=== PATIENT | male | born 1950 | race Caucasian/White ===

== ENCOUNTER → 2017-01-30 | Outpatient (CLI) | payer MEDICARE, BC ==
[2016-01-18 09:03] VITALS: BP 165/90
[~2017-01-30] MED LIST: AMIO200T2 PO; ASPI-482 PO; ASPI81TA9 PO; ATOR40TA PO; ATOR40TA59 PO; Aspirin PO; BUPR150T11 PO; CLOP75TA PO; CLOP75TA27 PO; DILT120C97 PO; DOCU100T5 PO; Diltiazem Hcl PO; EDOX60TA PO; ERGO500012 PO; FENO134C PO; FENO134C10 PO; FURO-68 PO; GABA-585 PO; HYDR-2672 PO; HYDR25TA9 PO; Hydrocodone Bit/Acetaminophen PO; LOSA25TA4 PO; METO25TA9 PO; NIAC500T PO; OMEG1CAP6 PO; PRAS10TA9 PO; RIVA10TA PO; RIVA20TA2 PO; SOTA120T PO; TIZA2TAB PO; TIZA4CAP PO
--- NOTE | 2017-01-30 14:19 | CARD ---
APPROVED REPORT EXAM: Two-dimensional and M-mode echocardiogram with Doppler and color Doppler. Other Information Quality : Technically Limited Rhythm : Atrial FibrillationTechnically limited study due to body habitus. INDICATION Cardiac Disease: CAD 2D DIMENSIONS RVDd3.0 (2.9-3.5cm)Left Atrium(2D)5.1 (1.6-4.0cm) IVSd1.4 (0.7-1.1cm)Aortic Root(2D)3.2 (2.0-3.7cm) LVDd5.6 (3.9-5.9cm)LVOT Diameter2.0 (1.8-2.4cm) PWd1.4 (0.7-1.1cm)LVDs4.1 (2.5-4.0cm) FS (%) 27.6 %SV81.2 ml LVEF(%)52.9 (>50%) Aortic Valve AoV Peak Tye.127.9cm/sAoV VTI25.2cm AO Peak GR.6.5mmHgLVOT Peak Tye.0.8cm/s LVOT VTI 19.10cmAO Mean GR.4mmHg LAMBERT (VMAX)0.15jh9JBS (VTI)2.40cm2 Mitral Valve MV DECEL ODCI236pqVF XNS57kw MVA (PHT)2.85cm2 Pulmonary Valve PV Peak Djajnuzq25.9cm/sPV Peak Grad.3mmHg RVOT VTI12.1cm Tricuspid Valve TR P. Oiiakjmg578ac/sRAP HYOOFNZY2gcGn TR Peak Gr.17luKbNCDO88llNw LEFT VENTRICLE The left ventricle is normal size. There is borderline to mild concentric left ventricular hypertroph y. Left ventricle systolic function is normal. The Ejection Fraction is 50-55%. There is normal LV se gmental wall motion. Unable to estimate diastolic function. There is no ventricular septal defect vis ualized. RIGHT VENTRICLE The right ventricle is normal size. The right ventricular systolic function is normal. ATRIA The left atrium size is normal. The right atrium size is normal. The interatrial septum is intact wit h no evidence for an atrial septal defect or patent foramen ovale as noted on 2-D or Doppler imaging. AORTIC VALVE The aortic valve is not well visualized. Doppler and Color Flow revealed no significant aortic regurg itation. There is no significant aortic valvular stenosis. MITRAL VALVE The mitral valve is normal in structure and function. There is no mitral valve stenosis. Doppler and Color Flow revealed mild mitral regurgitation. TRICUSPID VALVE The tricuspid valve is not well visualized. Doppler and Color Flow revealed mild tricuspid regurgitat ion. The PA pressure was estimated at 41 mmHg. There is no tricuspid valve stenosis. PULMONIC VALVE The pulmonic valve is not well visualized. Doppler and Color Flow revealed no pulmonic valvular regur gitation. There is no pulmonic valvular stenosis. GREAT VESSELS The aortic root is normal in size. Normal pulmonary venous flow (Doppler). The IVC is normal in size and collapses >50% with inspiration. PERICARDIAL EFFUSION There is no evidence of significant pericardial effusion. Critical Notification Critical Value: No <Conclusion> The left ventricle is normal size. Left ventricle systolic function is normal. The Ejection Fraction is 50-55%. There is borderline to mild concentric left ventricular hypertrophy. There is no significant aortic valvular stenosis. Doppler and Color Flow revealed no significant aortic regurgitation. Doppler and Color Flow revealed mild mitral regurgitation. Doppler and Color Flow revealed mild tricuspid regurgitation. The PA pressure was estimated at 41 mmHg.
== END | disposition home or self-care (01) ==
LOC: ECHO 08:39
PROVIDERS: ATTEND Internal Medicine Cardiovascular Disease
DX: I08.1 Rheumatic disorders of both mitral and tricuspid valves (principal)
CPT/HCPCS: 93306

== ENCOUNTER → 2017-03-28 | Outpatient (CLI) | payer MEDICARE, BC ==
[2016-01-18 09:03] VITALS: BP 165/90
[~2017-03-28] MED LIST changes: +ASPI-612 PO; -ASPI81TA9 PO; -CLOP75TA27 PO; +CLOP75TA57 PO; +DILT120C80 PO; -DILT120C97 PO; -ERGO500012 PO; +ERGO500027 PO; -HYDR-2672 PO; +HYDR-2766 PO
== END | disposition home or self-care (01) ==
LOC: PMGWOUND 07:52
PROVIDERS: ATTEND Emergency Medicine Undersea and Hyperbaric Medicine
DX: I87.313 Chronic venous hypertension (idiopathic) with ulcer of bilateral lower extremity (principal); L97.211 Non-pressure chronic ulcer of right calf limited to breakdown of skin; L97.221 Non-pressure chronic ulcer of left calf limited to breakdown of skin; I25.10 Atherosclerotic heart disease of native coronary artery without angina pectoris; E78.5 Hyperlipidemia, unspecified; I48.91 Unspecified atrial fibrillation; E66.01 Morbid (severe) obesity due to excess calories; I13.0 Hypertensive heart and chronic kidney disease with heart failure and stage 1 through stage 4 chronic kidney disease, or unspecified chronic kidney disease; N18.2 Chronic kidney disease, stage 2 (mild); I50.9 Heart failure, unspecified; Z95.0 Presence of cardiac pacemaker; Z68.42 Body mass index [BMI] 45.0-49.9, adult
CPT/HCPCS: 29581

== ENCOUNTER → 2017-03-31 | Outpatient (CLI) | payer MEDICARE, BC ==
[2016-01-18 09:03] VITALS: BP 165/90
== END | disposition home or self-care (01) ==
LOC: PMGWOUND 08:52
PROVIDERS: ATTEND Emergency Medicine Undersea and Hyperbaric Medicine
DX: I87.313 Chronic venous hypertension (idiopathic) with ulcer of bilateral lower extremity (principal); L97.211 Non-pressure chronic ulcer of right calf limited to breakdown of skin; L97.221 Non-pressure chronic ulcer of left calf limited to breakdown of skin; I25.10 Atherosclerotic heart disease of native coronary artery without angina pectoris; I13.0 Hypertensive heart and chronic kidney disease with heart failure and stage 1 through stage 4 chronic kidney disease, or unspecified chronic kidney disease; N18.2 Chronic kidney disease, stage 2 (mild); I50.9 Heart failure, unspecified; E78.5 Hyperlipidemia, unspecified; E66.01 Morbid (severe) obesity due to excess calories; Z68.42 Body mass index [BMI] 45.0-49.9, adult; I48.91 Unspecified atrial fibrillation; Z95.0 Presence of cardiac pacemaker
CPT/HCPCS: 29581

== ENCOUNTER → 2017-04-04 | Outpatient (CLI) | payer MEDICARE, BC ==
[2016-01-18 09:03] VITALS: BP 165/90
== END | disposition home or self-care (01) ==
LOC: PMGWOUND 11:07
PROVIDERS: ATTEND Emergency Medicine Undersea and Hyperbaric Medicine
DX: I87.313 Chronic venous hypertension (idiopathic) with ulcer of bilateral lower extremity (principal); L97.211 Non-pressure chronic ulcer of right calf limited to breakdown of skin; L97.221 Non-pressure chronic ulcer of left calf limited to breakdown of skin; I13.0 Hypertensive heart and chronic kidney disease with heart failure and stage 1 through stage 4 chronic kidney disease, or unspecified chronic kidney disease; N18.2 Chronic kidney disease, stage 2 (mild); I50.9 Heart failure, unspecified; I25.10 Atherosclerotic heart disease of native coronary artery without angina pectoris; E78.5 Hyperlipidemia, unspecified; I48.91 Unspecified atrial fibrillation; E66.01 Morbid (severe) obesity due to excess calories; Z68.42 Body mass index [BMI] 45.0-49.9, adult; Z95.0 Presence of cardiac pacemaker
CPT/HCPCS: 29581

== ENCOUNTER → 2017-04-11 | Outpatient (CLI) | payer MEDICARE, BC ==
[2016-01-18 09:03] VITALS: BP 165/90
== END | disposition home or self-care (01) ==
LOC: PMGWOUND 09:08
PROVIDERS: ATTEND Emergency Medicine Undersea and Hyperbaric Medicine
DX: I87.313 Chronic venous hypertension (idiopathic) with ulcer of bilateral lower extremity (principal); L97.211 Non-pressure chronic ulcer of right calf limited to breakdown of skin; L97.221 Non-pressure chronic ulcer of left calf limited to breakdown of skin; I13.0 Hypertensive heart and chronic kidney disease with heart failure and stage 1 through stage 4 chronic kidney disease, or unspecified chronic kidney disease; N18.2 Chronic kidney disease, stage 2 (mild); I50.9 Heart failure, unspecified; I25.10 Atherosclerotic heart disease of native coronary artery without angina pectoris; E78.5 Hyperlipidemia, unspecified; I48.91 Unspecified atrial fibrillation; E66.01 Morbid (severe) obesity due to excess calories; Z95.0 Presence of cardiac pacemaker; Z68.42 Body mass index [BMI] 45.0-49.9, adult
CPT/HCPCS: 99214

== ENCOUNTER → 2017-12-06 | Outpatient (CLI) | payer MEDICARE | END | disposition home or self-care (01) | LOC: US 07:48 | DX: R60.0 Localized edema (principal) | CPT/HCPCS: 93970 ==

== ENCOUNTER → 2018-04-18 | Day surgery (SDC) | payer MEDICARE ==
[~2018-04-18] MED LIST changes: -AMIO200T2 PO; +AMIO200T4 PO; +LIDOCAINE 1% Multi-Dose 20 ML VIAL. IJ ONE; +LIDOCAINE 1%/EPI 1:100,000 20 ML VIAL. INJ ONE; +METO-239 PO; -METO25TA9 PO; +NEOMY/BACITR/POLYMYXIN OINT PACKET. TP ONE
[2018-04-18 10:29] VITALS: BP 164/96
--- NOTE | 2018-04-23 10:07 | PATHOLOGY ---
[facility] Accession Number: [id number] . 01 Material submitted: . SKIN AND SUBCUTANEOUS MASS POSTERIOR NECK . 01 Clinical history: . Neck cyst. . 02 Diagnosis: Skin and subcutaneous tissue, posterior neck, excision: - Calcified pilomatricoma. - The lesion appears to be completely excised. (SKM:[facility]; 04/20/2018) QMS/04/20/2018 . 02 Electronically signed: . Ariel Kowalski MD, Pathologist NPI- [id number] . 01 Gross description: . Received in formalin labeled "Jassi Harris, skin and subcutaneous mass posterior neck" is a snow-white ellipse of skin measuring 2.8 x 1.1 x 0.3 cm, which has an encapsulated snow-yellow calcified mass in the deep soft tissue measuring 2.3 x 1.5 x 1.4 cm. Upon sectioning, the mass has a yellow-snow calcified cut surface. A inventory representative section of the specimen is submitted in cassette A1 following decalcification. (SK; 04/19/2018) SYC/SYC . 02 Pathologist provided ICD-10: D23.4 . 02 CPT . 176721 Performed at: 01 [facility] [address] [facility] [address], [place] [id number] MD Rashi Parra MD Phone: [phone] Performed at: 02 [facility] [address] [id number] MD Colin Edwards MD Phone: [phone]
--- NOTE | 2018-05-02 16:01 | PDOC ---
BRIEF OPERATIVE NOTE Date: Apr 18, 2018 Pre-Op Diagnosis cyst, left posterior neck Post-Op Diagnosis same Procedure Performed excision Surgeon Gregorio Anesthesia Type: Local Blood Loss minimal Specimens Obtained skin and subcutaneous tissue Findings cyst Complications none Operative Note Pt placed in LLD position. Left neck prepped, draped, 1% lidocaine with epi infiltrated. Skin and underlying process removed intact. Wound closed with interrupted 4-0 nylon sutures. Sterile dressing applied. Pt tolerated well. SUMIT KELLY MD May 02, 2018 16:01
== END | disposition home or self-care (01) ==
LOC: SURG 09:57
PROVIDERS: ATTEND Surgery
DX: D23.4 Other benign neoplasm of skin of scalp and neck (principal); I25.10 Atherosclerotic heart disease of native coronary artery without angina pectoris; E78.00 Pure hypercholesterolemia, unspecified; K21.9 Gastro-esophageal reflux disease without esophagitis; M19.90 Unspecified osteoarthritis, unspecified site; F32.9 Major depressive disorder, single episode, unspecified; F41.9 Anxiety disorder, unspecified; F17.210 Nicotine dependence, cigarettes, uncomplicated; I11.0 Hypertensive heart disease with heart failure; I50.9 Heart failure, unspecified; Z79.899 Other long term (current) drug therapy; Z79.82 Long term (current) use of aspirin; Z95.1 Presence of aortocoronary bypass graft; Z95.5 Presence of coronary angioplasty implant and graft; Z98.890 Other specified postprocedural states; Z90.49 Acquired absence of other specified parts of digestive tract
CPT/HCPCS: 11423; 88305; J3490

== ENCOUNTER → 2018-07-12 | Outpatient (CLI) | payer MEDICARE ==
[2018-04-18 10:29] VITALS: BP 164/96
[~2018-07-12] MED LIST changes: -LIDOCAINE 1% Multi-Dose 20 ML VIAL. IJ ONE; -LIDOCAINE 1%/EPI 1:100,000 20 ML VIAL. INJ ONE; -LOSA25TA4 PO; +LOSA25TA5 PO; -NEOMY/BACITR/POLYMYXIN OINT PACKET. TP ONE
--- NOTE | 2018-07-12 13:20 | CARD ---
MR#: [id number] Date of Study: 07/12/2018 Ordering Physician: JAIMIE GILMAN, Referring Physician: JAIMIE GILMAN, Tech: Pam Thakkar APPROVED REPORT EXAM: Two-dimensional and M-mode echocardiogram with Doppler and color Doppler. Other Information Quality : Average Rhythm : PacemakerTechnically limited study due to body habitus. INDICATION Diastolic heart failure Surgery/Intervention Pacemaker: RISK FACTORS Hypertension Hyperlipidemia Diabetes 2D DIMENSIONS RVDd2.6 (2.9-3.5cm)Left Atrium(2D)5.0 (1.6-4.0cm) IVSd1.0 (0.7-1.1cm)Aortic Root(2D)3.4 (2.0-3.7cm) LVDd6.7 (3.9-5.9cm)LVOT Diameter2.4 (1.8-2.4cm) PWd1.5 (0.7-1.1cm)LVDs3.6 (2.5-4.0cm) FS (%) 46.1 %SV177.1 ml LVEF(%)76.3 (>50%) Aortic Valve AoV Peak Tye.111.1cm/sAoV VTI22.7cm AO Peak GR.4.9mmHgLVOT Peak Tye.94.7cm/s AO Mean GR.3mmHgAVA (VMAX)3.90cm2 Mitral Valve MV E Qqztfjno97.6cm/sMV DECEL VSMT727rp MV A Meeiuqqa48.7cm/sE/A Ratio0.9 Pulmonary Valve PV Peak Xaikiupr047.5cm/s Tricuspid Valve TR P. Vanqfnjx984ui/sTR Peak Gr.20mmHg Pulmonary Vein S1 Jafvymsv96.5cm/sD2 Nvogiean71.0cm/s PVa bzlhvhue761sojo LEFT VENTRICLE The Left Ventricle is moderately dilated. There is mild concentric left ventricular hypertrophy. The left ventricular systolic function is normal and the ejection fraction is within normal range. The Ej ection Fraction is 55-60%. Grossly normal wall motion, difficult to visualized. Transmitral Doppler f low pattern is Grade II-pseudonormal filling dynamics. RIGHT VENTRICLE The right ventricle is mildly dilated. There is normal right ventricular wall thickness. The right ve ntricular systolic function is normal. ATRIA The left atrium is mildly dilated. The right atrium size is normal. The interatrial septum is intact with no evidence for an atrial septal defect or patent foramen ovale as noted on 2-D or Doppler imagi ng. AORTIC VALVE The aortic valve is not well visualized. Doppler and Color Flow revealed trace aortic regurgitation. There is no significant aortic valvular stenosis. MITRAL VALVE The mitral valve is normal in structure and function. There is no mitral valve stenosis. Doppler and Color-flow revealed trace mitral regurgitation. TRICUSPID VALVE The tricuspid valve is not well visualized. Doppler and Color Flow revealed no tricuspid valve regurg itation noted. There is no tricuspid valve stenosis. PULMONIC VALVE The pulmonic valve is not well visualized. Doppler and Color Flow revealed trace pulmonic valvular re gurgitation. There is no pulmonic valvular stenosis. GREAT VESSELS The aortic root is normal in size. The IVC was not visualized. PERICARDIAL EFFUSION There is no evidence of significant pericardial effusion. Critical Notification Critical Value: No <Conclusion> The left ventricular systolic function is normal and the ejection fraction is within normal range. Th e Ejection Fraction is 55-60%. Grossly normal wall motion, difficult to visualized. Signed by : Morgan Rothman, Electronically Approved : 07/12/2018 13:19:27
== END | disposition home or self-care (01) ==
LOC: ECHO 07:11
PROVIDERS: ATTEND Internal Medicine Cardiovascular Disease
DX: I13.0 Hypertensive heart and chronic kidney disease with heart failure and stage 1 through stage 4 chronic kidney disease, or unspecified chronic kidney disease (principal); E11.22 Type 2 diabetes mellitus with diabetic chronic kidney disease; I50.33 Acute on chronic diastolic (congestive) heart failure; N18.2 Chronic kidney disease, stage 2 (mild); E78.5 Hyperlipidemia, unspecified
CPT/HCPCS: 93306

== ENCOUNTER → 2018-11-28 | Outpatient (CLI) | payer MEDICARE ==
[2018-04-18 10:29] VITALS: BP 164/96
[~2018-11-28] MED LIST changes: +APIX5TAB PO; +CEPH-264 PO; +CIPR500T94 PO; -DILT120C80 PO; +DILT120C85 PO; +HYDR-2145 PO; +HYDR-2765 PO; -HYDR-2766 PO; +HYDR-2769 PO; -HYDR25TA9 PO; -LOSA25TA5 PO; +LOSA25TA54 PO; +METF500T16 PO
== END | disposition home or self-care (01) ==
LOC: PMGWOUND 08:32
PROVIDERS: ATTEND Preventive Medicine Undersea and Hyperbaric Medicine
DX: E11.622 Type 2 diabetes mellitus with other skin ulcer (principal); I87.313 Chronic venous hypertension (idiopathic) with ulcer of bilateral lower extremity; L97.211 Non-pressure chronic ulcer of right calf limited to breakdown of skin; L97.221 Non-pressure chronic ulcer of left calf limited to breakdown of skin; S80.822A Blister (nonthermal), left lower leg, initial encounter; E11.40 Type 2 diabetes mellitus with diabetic neuropathy, unspecified; I13.0 Hypertensive heart and chronic kidney disease with heart failure and stage 1 through stage 4 chronic kidney disease, or unspecified chronic kidney disease; E11.22 Type 2 diabetes mellitus with diabetic chronic kidney disease; N18.2 Chronic kidney disease, stage 2 (mild); I50.33 Acute on chronic diastolic (congestive) heart failure; I48.91 Unspecified atrial fibrillation; E78.5 Hyperlipidemia, unspecified; F12.10 Cannabis abuse, uncomplicated; N40.1 Benign prostatic hyperplasia with lower urinary tract symptoms; I25.10 Atherosclerotic heart disease of native coronary artery without angina pectoris; E66.01 Morbid (severe) obesity due to excess calories; Z68.42 Body mass index [BMI] 45.0-49.9, adult; Z90.49 Acquired absence of other specified parts of digestive tract; X58.XXXA Exposure to other specified factors, initial encounter; Y93.89 Activity, other specified; Y92.89 Other specified places as the place of occurrence of the external cause; Y99.8 Other external cause status
CPT/HCPCS: 29581

== ENCOUNTER → 2018-11-30 | Outpatient (CLI) | payer MEDICARE ==
[2018-04-18 10:29] VITALS: BP 164/96
== END | disposition home or self-care (01) ==
LOC: PMGWOUND 08:06
PROVIDERS: ATTEND Preventive Medicine Undersea and Hyperbaric Medicine
DX: E11.622 Type 2 diabetes mellitus with other skin ulcer (principal); I87.313 Chronic venous hypertension (idiopathic) with ulcer of bilateral lower extremity; L97.211 Non-pressure chronic ulcer of right calf limited to breakdown of skin; L97.221 Non-pressure chronic ulcer of left calf limited to breakdown of skin; S80.822D Blister (nonthermal), left lower leg, subsequent encounter; E11.40 Type 2 diabetes mellitus with diabetic neuropathy, unspecified; I13.0 Hypertensive heart and chronic kidney disease with heart failure and stage 1 through stage 4 chronic kidney disease, or unspecified chronic kidney disease; E11.22 Type 2 diabetes mellitus with diabetic chronic kidney disease; N18.2 Chronic kidney disease, stage 2 (mild); I50.33 Acute on chronic diastolic (congestive) heart failure; E78.5 Hyperlipidemia, unspecified; I48.91 Unspecified atrial fibrillation; F12.10 Cannabis abuse, uncomplicated; N40.1 Benign prostatic hyperplasia with lower urinary tract symptoms; I25.10 Atherosclerotic heart disease of native coronary artery without angina pectoris; E66.01 Morbid (severe) obesity due to excess calories; Z68.42 Body mass index [BMI] 45.0-49.9, adult; Z90.49 Acquired absence of other specified parts of digestive tract; X58.XXXD Exposure to other specified factors, subsequent encounter
CPT/HCPCS: 29581

== ENCOUNTER → 2018-12-07 | Outpatient (CLI) | payer MEDICARE ==
[2018-04-18 10:29] VITALS: BP 164/96
== END | disposition home or self-care (01) ==
LOC: PMGWOUND 08:10
PROVIDERS: ATTEND Preventive Medicine Undersea and Hyperbaric Medicine
DX: E11.622 Type 2 diabetes mellitus with other skin ulcer (principal); L97.211 Non-pressure chronic ulcer of right calf limited to breakdown of skin; L97.221 Non-pressure chronic ulcer of left calf limited to breakdown of skin; S80.822D Blister (nonthermal), left lower leg, subsequent encounter; E11.40 Type 2 diabetes mellitus with diabetic neuropathy, unspecified; I13.0 Hypertensive heart and chronic kidney disease with heart failure and stage 1 through stage 4 chronic kidney disease, or unspecified chronic kidney disease; E11.22 Type 2 diabetes mellitus with diabetic chronic kidney disease; N18.2 Chronic kidney disease, stage 2 (mild); I50.33 Acute on chronic diastolic (congestive) heart failure; E78.5 Hyperlipidemia, unspecified; I87.2 Venous insufficiency (chronic) (peripheral); I48.91 Unspecified atrial fibrillation; N40.1 Benign prostatic hyperplasia with lower urinary tract symptoms; I25.10 Atherosclerotic heart disease of native coronary artery without angina pectoris; E66.01 Morbid (severe) obesity due to excess calories; Z68.42 Body mass index [BMI] 45.0-49.9, adult; Z95.0 Presence of cardiac pacemaker; Z90.49 Acquired absence of other specified parts of digestive tract; X58.XXXD Exposure to other specified factors, subsequent encounter
CPT/HCPCS: 97597; 97598

== ENCOUNTER → 2018-12-11 | Outpatient (CLI) | payer MEDICARE ==
[2018-04-18 10:29] VITALS: BP 164/96
== END | disposition home or self-care (01) ==
LOC: PMGWOUND 10:03
PROVIDERS: ATTEND Emergency Medicine Undersea and Hyperbaric Medicine
DX: E11.622 Type 2 diabetes mellitus with other skin ulcer (principal); I87.313 Chronic venous hypertension (idiopathic) with ulcer of bilateral lower extremity; L97.211 Non-pressure chronic ulcer of right calf limited to breakdown of skin; L97.221 Non-pressure chronic ulcer of left calf limited to breakdown of skin; E11.40 Type 2 diabetes mellitus with diabetic neuropathy, unspecified; I13.0 Hypertensive heart and chronic kidney disease with heart failure and stage 1 through stage 4 chronic kidney disease, or unspecified chronic kidney disease; E11.22 Type 2 diabetes mellitus with diabetic chronic kidney disease; N18.2 Chronic kidney disease, stage 2 (mild); I50.9 Heart failure, unspecified; I48.91 Unspecified atrial fibrillation; E78.5 Hyperlipidemia, unspecified; N40.1 Benign prostatic hyperplasia with lower urinary tract symptoms; I25.10 Atherosclerotic heart disease of native coronary artery without angina pectoris; E66.01 Morbid (severe) obesity due to excess calories; Z68.42 Body mass index [BMI] 45.0-49.9, adult; Z95.0 Presence of cardiac pacemaker; Z90.49 Acquired absence of other specified parts of digestive tract
CPT/HCPCS: 29581

== ENCOUNTER → 2018-12-14 | Outpatient (CLI) | payer MEDICARE ==
[2018-04-18 10:29] VITALS: BP 164/96
== END | disposition home or self-care (01) ==
LOC: PMGWOUND 08:25
PROVIDERS: ATTEND Preventive Medicine Undersea and Hyperbaric Medicine
DX: E11.622 Type 2 diabetes mellitus with other skin ulcer (principal); I87.313 Chronic venous hypertension (idiopathic) with ulcer of bilateral lower extremity; L97.211 Non-pressure chronic ulcer of right calf limited to breakdown of skin; L97.221 Non-pressure chronic ulcer of left calf limited to breakdown of skin; E11.40 Type 2 diabetes mellitus with diabetic neuropathy, unspecified; I13.0 Hypertensive heart and chronic kidney disease with heart failure and stage 1 through stage 4 chronic kidney disease, or unspecified chronic kidney disease; E11.22 Type 2 diabetes mellitus with diabetic chronic kidney disease; N18.2 Chronic kidney disease, stage 2 (mild); I50.33 Acute on chronic diastolic (congestive) heart failure; I87.2 Venous insufficiency (chronic) (peripheral); I48.91 Unspecified atrial fibrillation; E78.5 Hyperlipidemia, unspecified; N40.1 Benign prostatic hyperplasia with lower urinary tract symptoms; I25.10 Atherosclerotic heart disease of native coronary artery without angina pectoris; E66.01 Morbid (severe) obesity due to excess calories; Z68.42 Body mass index [BMI] 45.0-49.9, adult; Z95.0 Presence of cardiac pacemaker; Z90.49 Acquired absence of other specified parts of digestive tract
CPT/HCPCS: 29581; 97597; 97598

== ENCOUNTER → 2018-12-18 | Outpatient (CLI) | payer MEDICARE ==
[2018-04-18 10:29] VITALS: BP 164/96
--- NOTE | 2018-12-18 09:35 | RAD ---
Bilateral lower extremity venous insufficiency ultrasound exam, 12/18/2018: HISTORY: Nonhealing wounds Duplex evaluation of the greater and lesser saphenous veins was performed including grayscale, color-flow and spectral Doppler analysis. The right greater saphenous vein measures 7.5 mm near the saphenofemoral junction level. It is widely patent and does not demonstrate significant reflux. The left greater saphenous vein measures 7.1 mm near the saphenofemoral junction level. It is widely patent and does not demonstrate significant reflux. The lesser saphenous veins in both lower legs are patent without significant reflux. Subcutaneous edema is noted in both lower legs in the region of the patient's wounds. IMPRESSION: No significant reflux was identified in the greater saphenous or lesser saphenous veins in either lower extremity. Electronically signed by: Tawanda Wang MD (12/18/2018 9:32 AM) [facility]
--- NOTE | 2018-12-18 09:44 | RAD ---
Bilateral lower extremity arterial ultrasound, 12/18/2018: HISTORY: Nonhealing wounds Duplex evaluation of the major arteries in both lower extremities was performed including grayscale, color-flow and spectral Doppler analysis. On the right, the common femoral, superficial femoral and popliteal Doppler waveforms are triphasic. No significant focal velocity acceleration is seen through these regions to suggest high-grade stenosis. Patent posterior tibial and anterior tibial arteries are evident in the right lower leg demonstrating triphasic Doppler waveforms. The right peroneal artery was not visualized. This may be on a technical basis or due to occlusion. The right dorsalis pedis artery is patent with a triphasic Doppler waveform. On the left, the common femoral, superficial femoral and popliteal Doppler waveforms are monophasic. This suggests iliac inflow disease. No significant focal velocity acceleration is seen in those vessels to suggest high-grade femoral-popliteal stenosis. Patent posterior tibial and anterior tibial arteries are present in the left lower leg demonstrating monophasic Doppler waveforms. The left peroneal artery could not be visualized. The left dorsalis pedis artery is patent demonstrating a similar monophasic Doppler waveform. IMPRESSION: 1. 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 This is a new finding when compared to the previous study of 01/11/2016. 2. No evidence of significant femoral-popliteal stenosis. 3. Nonvisualization of the peroneal arteries in both lower legs. Electronically signed by: Tawanda Wang MD (12/18/2018 9:42 AM) [facility]
== END | disposition home or self-care (01) ==
LOC: US 07:41
PROVIDERS: ATTEND Preventive Medicine Undersea and Hyperbaric Medicine
DX: L97.211 Non-pressure chronic ulcer of right calf limited to breakdown of skin (principal); L97.221 Non-pressure chronic ulcer of left calf limited to breakdown of skin
CPT/HCPCS: 93925; 93970

== ENCOUNTER 2018-12-29 07:56 | Inpatient (IN) | payer MEDICARE ==
[~2018-12-29] VITALS: Ht 165.1 cm; Wt 145.1 kg
[~2018-12-29 07:56] MED LIST changes: -APIX5TAB PO; -CEPH-264 PO; -CIPR500T94 PO; -HYDR-2765 PO; -METF500T16 PO
[2018-12-29] MEDS ORDERED: methylPREDNISolone SOD SUCC PF 125 MG/2 ML VIAL. IV ONE (08:15)
[2018-12-29] MEDS ORDERED: FUROSEMIDE 40 MG/4 ML VIAL. IVP ONE (08:15)
[2018-12-29] MEDS ORDERED: IPRATRPIUM/ALBUTEROL 0.5/2.5MG 3 ML NEBU. NEB ONE (08:15)
[2018-12-29 08:30] LABS: BASO # 0.1 x10^3/uL (0.0-0.2); BASO % 1 % (0-3); EOS # 0.2 x10^3/uL (0.0-0.7); EOS % 2 % (0-3); HEMOGLOBIN 11.1 g/dL (13.0-17.5); LYMPH # 1.3 x10^3/uL (1.0-4.8); LYMPH % 11 % (24-48); MEAN CORPUSCULAR HEMOGLOBIN 27 pg (25-35); MEAN CORPUSCULAR HGB CONC 32 g/dL (31-37); MEAN CORPUSCULAR VOLUME 84 fL (79-100); MONO # 1.2 x10^3/uL (0.0-1.1); MONO % 10 % (0-9); NEUT # 8.8 x10^3uL (1.8-7.7); NEUT % 76 % (31-73); PLATELET COUNT 428 x10^3/uL (140-400); RED BLOOD COUNT 4.19 x10^6/uL (4.30-5.70); RED CELL DISTRIBUTION WIDTH 15.6 % (11.5-14.5); WHITE BLOOD COUNT 11.6 x10^3/uL (4.0-11.0)
--- NOTE | 2018-12-29 08:31 | RAD ---
AP chest. HISTORY: Short of air, chest tightness AP view was taken of the chest. Heart is upper normal in size. There is a pacemaker, the pacing leads are not optimally visualized. Right lung appears clear. There is a probable eventration of the left diaphragm. There is atelectasis along the left heart border. No other infiltrates are noted. IMPRESSION: 1. Scarring or atelectasis along the left heart border without other definite infiltrates. Electronically signed by: Prosper Scales MD (12/29/2018 8:28 AM) [facility]
[2018-12-29 08:32] LABS: BASE EXCESS ABG -1 mmol/L (-3-3); HCO3 ABG 23 mmol/L (21-28); PCO2 ABG 36 mmHg (35-46); PO2 ABG 114 mmHg (65-108); SAT O2 ABG 98 % (92-99)
[2018-12-29 08:39] LABS: CALCIUM 8.7 mg/dL (8.5-10.1); CREATININE 0.9 mg/dL (0.7-1.3); GFR 84.4; POTASSIUM 4.2 mmol/L (3.5-5.1)
[2018-12-29 08:45] LABS: ALBUMIN 3.4 g/dL (3.4-5.0); ALBUMIN/GLOBULIN RATIO 0.8 (1.0-1.7); TOTAL BILIRUBIN 0.2 mg/dL (0.2-1.0); TOTAL PROTEIN 7.6 g/dL (6.4-8.2)
[2018-12-29 08:48] LABS: BILIRUBIN,URINE NEGATIVE (NEG); CLARITY,URINE CLEAR; COLOR,URINE YELLOW; NITRITE,URINE NEGATIVE (NEG); PROTEIN,URINE NEGATIVE (NEG-TRACE)
[2018-12-29 09:00] LABS: BACTERIA,URINE MANY /HPF (0-FEW); SQUAMOUS EPITHELIAL CELL,UR OCC /LPF
[2018-12-29] MEDS ORDERED: cefTRIAXone IV Push 1 GM VIAL. IVP ONE (09:15)
[2018-12-29] MEDS ORDERED: IOHEXOL 350 MG/ML 100 ML VIAL. IV ONE (09:30)
--- NOTE | 2018-12-29 09:34 | PHYS DOC ---
Past Medical History Past Medical History: CAD, Diabetes-Type II, Hypertension Past Surgical History: Cholecystectomy, Other Additional Past Surgical Histo: Cardiac stent, ROTATAR CUFF, HERNIA Alcohol Use: None Drug Use: None Adult General Chief Complaint Chief Complaint: SHORTNESS OF BREATH HPI HPI Patient is a 68 year old male who presents with complaining of shortness of breath. Patient states he has had chronic exertional shortness of breath that getting worse since this morning as a constant shortness of breath that getting worse with activity and swelling position. Patient complaining of substernal chest tightness and rated his pain 2/10. Patient denies fever and chills, cough , increase of chronic leg edema, vomiting and diarrhea, urinary symptom. Patient has had chronic lower extremity edema and taking diuretic. Patient also had left lower extremity wound and was seen at wound care clinic. Review of Systems Review of Systems Constitutional: Denies fever or chills [] Eyes: Denies change in visual acuity, redness, or eye pain [] HENT: Denies nasal congestion or sore throat [] Respiratory: Denies cough, reports shortness of breath [] Cardiovascular: No additional information not addressed in HPI [] GI: Denies abdominal pain, nausea, vomiting, bloody stools or diarrhea [] : Denies dysuria or hematuria [] Musculoskeletal: Denies back pain or joint pain [] Integument: Denies rash, reports ulcer Neurologic: Denies headache, focal weakness or sensory changes [] Endocrine: Denies polyuria or polydipsia [] All other systems were reviewed and found to be within normal limits, except as documented in this note. Current Medications Current Medications Current Medications Medications (Trade) Dose Ordered Sig/Lito Start Time Stop Time Status Last Admin Dose Admin Albuterol/ Ipratropium (Duoneb) 3 ml 1X ONCE 12/29/18 08:15 12/29/18 08:17 DC 12/29/18 08:40 3 ML Ceftriaxone Sodium (Rocephin) 1 gm 1X ONCE 12/29/18 09:15 12/29/18 09:18 DC 12/29/18 09:33 1 GM Furosemide (Lasix) 40 mg 1X ONCE 12/29/18 08:15 12/29/18 08:17 DC 12/29/18 08:26 40 MG Methylprednisolone Sodium Succinate (SOLU-Medrol 125MG VIAL) 125 mg 1X ONCE 12/29/18 08:15 12/29/18 08:17 DC 12/29/18 08:27 125 MG Allergies Allergies Allergies Coded Allergies Type Severity Reaction Last Updated Verified No Known Drug Allergies 04/18/18 No Physical Exam Physical Exam Constitutional: Well developed, well nourished, moderate distress, non-toxic appearance, morbidly obese. [] HENT: Normocephalic, atraumatic, oropharynx moist, no oral exudates, nose normal. [] Eyes: PERRLA, EOMI, conjunctiva normal, no discharge. [] Neck: Normal range of motion, no tenderness, supple, no stridor. [] Cardiovascular:Heart rate regular rhythm, no murmur [] Lungs & Thorax: Mild respiratory distress with intercostal retractions and hyperventilation, O2 sat of 89% at arrival to ER with increasing to 94% on 2 L of oxygen decrease of air movement in by basilar lung, no wheezing Abdomen: Bowel sounds normal, soft, no tenderness, no masses, no pulsatile masses. [] Skin: Warm, dry, no erythema, no rash. [] Back: No tenderness, no CVA tenderness. [] Extremities: No tenderness, no cyanosis, no clubbing, ROM intact, 3+ bilateral lower extremity edema with left anterior leg wound in the dressing from wound clinic Neurologic: Alert and oriented X 3, normal motor function, normal sensory function, no focal deficits noted. [] Psychologic: Affect normal, judgement normal, mood normal. [] Current Patient Data Vital Signs Vital Signs Date Time Temp Pulse Resp B/P (MAP) Pulse Ox O2 Delivery O2 Flow Rate FiO2 12/29/18 09:15 85 28 163/96 (118) 95 Nasal Cannula 2.0 12/29/18 08:08 98.4 98.4 Lab Values Laboratory Tests Test 12/29/18 08:05 12/29/18 08:20 12/29/18 08:30 White Blood Count 11.6 x10^3/uL (4.0-11.0) H Red Blood Count 4.19 x10^6/uL (4.30-5.70) L Hemoglobin 11.1 g/dL (13.0-17.5) L Hematocrit 35.0 % (39.0-53.0) L Mean Corpuscular Volume 84 fL (79-100) Mean Corpuscular Hemoglobin 27 pg (25-35) Mean Corpuscular Hemoglobin Concent 32 g/dL (31-37) Red Cell Distribution Width 15.6 % (11.5-14.5) H Platelet Count 428 x10^3/uL (140-400) H Neutrophils (%) (Auto) 76 % (31-73) H Lymphocytes (%) (Auto) 11 % (24-48) L Monocytes (%) (Auto) 10 % (0-9) H Eosinophils (%) (Auto) 2 % (0-3) Basophils (%) (Auto) 1 % (0-3) Neutrophils # (Auto) 8.8 x10^3uL (1.8-7.7) H Lymphocytes # (Auto) 1.3 x10^3/uL (1.0-4.8) Monocytes # (Auto) 1.2 x10^3/uL (0.0-1.1) H Eosinophils # (Auto) 0.2 x10^3/uL (0.0-0.7) Basophils # (Auto) 0.1 x10^3/uL (0.0-0.2) D-Dimer (Dayami) 0.74 ug/mlFEU (0.00-0.50) H Sodium Level 143 mmol/L (136-145) Potassium Level 4.2 mmol/L (3.5-5.1) Chloride Level 104 mmol/L (98-107) Carbon Dioxide Level 26 mmol/L (21-32) Anion Gap 13 (6-14) Blood Urea Nitrogen 22 mg/dL (8-26) Creatinine 0.9 mg/dL (0.7-1.3) Estimated GFR (Cockcroft-Gault) 84.4 BUN/Creatinine Ratio 24 (6-20) H Glucose Level 120 mg/dL (70-99) H Lactic Acid Level 1.6 mmol/L (0.4-2.0) Calcium Level 8.7 mg/dL (8.5-10.1) Total Bilirubin 0.2 mg/dL (0.2-1.0) Aspartate Amino Transferase (AST) 13 U/L (15-37) L Alanine Aminotransferase (ALT) 25 U/L (16-63) Alkaline Phosphatase 63 U/L (46-116) Creatine Kinase 53 U/L (39-308) Troponin I Quantitative < 0.017 ng/mL (0.000-0.055) TE-Gib-Z-Type Natriuretic Peptide 101 pg/mL (0-124) Total Protein 7.6 g/dL (6.4-8.2) Albumin 3.4 g/dL (3.4-5.0) Albumin/Globulin Ratio 0.8 (1.0-1.7) L O2 Saturation 98 % (92-99) Arterial Blood pH 7.42 (7.35-7.45) Arterial Blood pCO2 at Patient Temp 36 mmHg (35-46) Arterial Blood pO2 at Patient Temp 114 mmHg (65-108) H Arterial Blood HCO3 23 mmol/L (21-28) Arterial Blood Base Excess -1 mmol/L (-3-3) FiO2 2.5 lpm nc Urine Collection Type Unknown Urine Color Yellow Urine Clarity Clear Urine pH 7.0 Urine Specific [place] 1.015 Urine Protein Negative mg/dL (NEG-TRACE) Urine Glucose (UA) Negative mg/dL (NEG) Urine Ketones (Stick) Negative mg/dL (NEG) Urine Blood Negative (NEG) Urine Nitrite Negative (NEG) Urine Bilirubin Negative (NEG) Urine Urobilinogen Dipstick 1.0 mg/dL (0.2 mg/dL) Urine Leukocyte Esterase Trace (NEG) Urine RBC 1-2 /HPF (0-2) Urine WBC 11-20 /HPF (0-4) Urine Squamous Epithelial Cells Occ /LPF Urine Bacteria Many /HPF (0-FEW) Urine Mucus Slight /LPF Laboratory Tests 12/29/18 08:05 Laboratory Tests 12/29/18 08:05 EKG EKG EKG interpreted by me. EKG at 0810 showed normal sinus rhythm at rate of 89 with multiple artifact, no acute ST and T-wave abnormalities, normal VT and QT intervals. Radiology/Procedures Radiology/Procedures [facility] [address] [place] [address] IMAGING REPORT Signed PATIENT: MALINDA LOPEZ ACCOUNT: [id number] : 1950 LOCATION: ER AGE: 68 SEX: M EXAM STATUS: PRE ER ORD. PHYSICIAN: VERONICA WARREN MD REASON: shortness of breath PROCEDURE: PORTABLE CHEST 1V AP chest. HISTORY: Short of air, chest tightness AP view was taken of the chest. Heart is upper normal in size. There is a pacemaker, the pacing leads are not optimally visualized. Right lung appears clear. There is a probable eventration of the left diaphragm. There is atelectasis along the left heart border. No other infiltrates are noted. IMPRESSION: 1. Scarring or atelectasis along the left heart border without other definite infiltrates. Electronically signed by: Prosper Scales MD (12/29/2018 8:28 AM) [facility] DICTATED and SIGNED BY: PROSPER SCALES MD DATE: 12/29/18 08 [facility] [address] [facility] [place], [place] [id number] IMAGING REPORT Signed PATIENT: MALINDA LOPEZ ACCOUNT: [id number] : 1950 LOCATION: [address] [place] [address] AGE: 68 SEX: M EXAM STATUS: ADM IN ORD. PHYSICIAN: VERONICA WARREN MD REASON: shortness of breath, elevated d-dimer PROCEDURE: CT ANGIOGRAPHY CHEST CT arteriogram of the chest. HISTORY: Short of breath, elevated d-dimer CT arteriogram of the chest was done using 100 mL Omnipaque 350 contrast. Sagittal and coronal MIP images were reconstructed. There is fatty change in the liver without a focal liver lesion. Spleen and adrenal glands are unremarkable. Upper poles the kidneys are normal. There is no pleural effusion. There is mild linear scarring or atelectasis in the lingula. There is a prominent epicardial fat pad along the heart border especially on the left. A pulmonary nodule is not identified. A pulmonary embolus is not identified. There is respiratory motion artifact which mildly limits the study for small peripheral emboli. IMPRESSION: 1. Mild scarring or atelectasis in the lingula. 2. No other infiltrates noted. 3. Negative for pulmonary embolus. 4. Mild limitations with respiratory motion artifact in the lung bases. PQRS Compliance Statement: One or more of the following individualized dose reduction techniques were utilized for this examination: 1. Automated exposure control 2. Adjustment of the mA and/or kV according to patient size 3. Use of iterative reconstruction technique Electronically signed by: Prosper Scales MD (12/29/2018 10:25 AM) [facility] DICTATED and SIGNED BY: PROSPER SCALES MD DATE: 12/29/18 1025 Course & Med Decision Making Course & Med Decision Making Pertinent Labs and Imaging studies reviewed. (See chart for details) Evaluation of patient in ER showed 68-year-old male patient presented to ER with shortness of breath. Patient had O2 sat of 100% at triage but in the room was 89% at room air that increased with 2 L of oxygen to 93-95%. Patient treated with DuoNeb, Solu-Medrol and Lasix and is 3 this is improved. Labs and chest x-ray was unremarkable except for marked anemia and UTI. D-dimer was mildly elevation and CT and shortness chest is pending. Patient requiring admission for further evaluation and treatment. Discussed with Dr. Aguilar who is in agreement with admission. Discussed findings and plan with patient and family, who acknowledge understanding and agreement. Dragon Disclaimer Dragon Disclaimer This electronic medical record was generated, in whole or in part, using a voice recognition dictation system. Departure Departure Impression: Primary Impression: Acute respiratory distress Additional Impressions: Hypoxia Urinary tract infection Diabetic ulcer of lower leg Pedal edema Anemia Morbid obesity Chest pain Disposition: ADMITTED INPATIENT (at 0923) Admitting Physician: Joy Aguilar (accepted admission for Dr. Daniel Barraza at 0922) Condition: IMPROVED Referrals: DANIEL BARRAZA MD (PCP) Critical Care Time Critical care time was 60 minutes exclusive of procedures. Problem Qualifiers Additional Impressions: Urinary tract infection Urinary tract infection type: site unspecified Hematuria presence: without hematuria Qualified Codes: N39.0 - Urinary tract infection, site not specified Anemia Anemia type: unspecified type Qualified Codes: D64.9 - Anemia, unspecified Chest pain Chest pain type: precordial pain Qualified Codes: R07.2 - Precordial pain VERONICA WARREN MD Dec 29, 2018 09:34
[2018-12-29] MEDS ORDERED: CONTRAST GIVEN. MC PRN (09:45)
[2018-12-29 10:10] VITALS: BP 159/99
--- NOTE | 2018-12-29 10:13 | PDOC2 ---
CARDIOLOGY CONSULT NOTE CHEIF COMPLAINT: SOA HPI: 68 y.o male with noted pmhx as below presenting with worsening exertional dyspnea. At baseline he is limited due to his morbid obesity and lung disease. He states that early today he began to feels some chest pressure and worsening dyspnea which prompted visit to the ER. In the ER, CXR was wnl. CTA chest pending due to elevated d-dimer. He has known LE edema and has been seen by the wound care clinic regularly. No syncope, palpitations. No orthopnea but does have PND and symptoms of TEETEE. Reports compliance with meds. PMHX: 1. CAD s/p PCI in 2013 to OM. Cath in 2014 with patent OM stent and small vessel disease. 2. HTN 3. Dyslipidemia 4. PAF s/p CVN 5. Morbid obesity 6. s/p Dual chamber pacemaker for tachy-rhina syndrome 7. LE wounds with mild venous reflux and possible aorto-iliac disease SOCHX: No alcohol, tob or illicit drug use FAMHX: Non-contributory CURRENT MEDS: CV meds at home: Amiodarone 200mg daily ASA 81mg daily Diltiazem 240mg daily Lasix 40mg daily Eliquis 5mg bid ALLERGIES: Allergies Coded Allergies Type Severity Reaction Last Updated Verified No Known Drug Allergies 04/18/18 No ROS: Negative for 07/01 systems reviewed unless noted above in HPI PHYSICAL EXAM: Vital Signs: Vital Signs Date Time Temp Pulse Resp B/P (MAP) Pulse Ox O2 Delivery O2 Flow Rate FiO2 12/29/18 09:15 85 28 163/96 (118) 95 Nasal Cannula 2.0 12/29/18 08:08 98.4 98.4 Physical Exam: GEN.: Moderate distress from dyspnea. A/O x 3. HEENT: Head is normocephalic, atraumatic. Large neck. NECK: Supple. LUNGS: Clear to auscultation. HEART: RRR, S1, S2 present. 2+ radial pulses. ABDOMEN: Significant obese, protrubent NT/ND. EXTREMITIES: Severe bilateral 4+ pitting edema. NEUROLOGIC: Normal speech, normal tone PSYCHIATRIC: Normal affect, normal mood. DIAGNOSTIC TESTING: CTA chest pending CXR w/o infiltrates. EKG - is not yet available for review, tele with SR. Trop negative. BNP wnl. ASSESSMENT: 1. Dyspnea - Etiology is likely multifactorial. (BNP is normal, may be artificially low due to severe obesity). Probably component pickwickian syndrome , HTN, diastolic HF. Cannot rule out arrhythmias and underlying worsening CAD, less likely due to normal trop. P. HTN also a possibility 2. Known p.afib - Currently in SR on anticoagulation. 3. HTN 4. Dyslipidemia 5. morbid obesity 6. Probable sleep apnea. 7. Acute on chronic decompensated probable diastolic HF. PLAN: 1. Continue home meds except hold eliquis in the event he needs any procedures ( cath etc) 2. Continue lasix 40mg IV BID and monitor renal function. 3. Medtr[employer] device interrogation. 4. Await CT chest. 5. Consider overnight pox. 6. Lymphedema consult. 7. Wound care consult. 8. Check echo. Supportive care. Will follow along. FAN DIAZ MD Dec 29, 2018 10:13
--- NOTE | 2018-12-29 10:28 | RAD ---
CT arteriogram of the chest. HISTORY: Short of breath, elevated d-dimer CT arteriogram of the chest was done using 100 mL Omnipaque 350 contrast. Sagittal and coronal MIP images were reconstructed. There is fatty change in the liver without a focal liver lesion. Spleen and adrenal glands are unremarkable. Upper poles the kidneys are normal. There is no pleural effusion. There is mild linear scarring or atelectasis in the lingula. There is a prominent epicardial fat pad along the heart border especially on the left. A pulmonary nodule is not identified. A pulmonary embolus is not identified. There is respiratory motion artifact which mildly limits the study for small peripheral emboli. IMPRESSION: 1. Mild scarring or atelectasis in the lingula. 2. No other infiltrates noted. 3. Negative for pulmonary embolus. 4. Mild limitations with respiratory motion artifact in the lung bases. PQRS Compliance Statement: One or more of the following individualized dose reduction techniques were utilized for this examination: 1. Automated exposure control 2. Adjustment of the mA and/or kV according to patient size 3. Use of iterative reconstruction technique Electronically signed by: Prosper Scales MD (12/29/2018 10:25 AM) [facility] [place]
[2018-12-29] MEDS ORDERED: ANTI-COAG MONITOR BY PHARMACY. MC PRN (10:30)
[2018-12-29] MEDS ORDERED: FUROSEMIDE 40 MG TABLET. PO SCH (11:00)
[2018-12-29] MEDS ORDERED: ERGOCALCIFEROL (VITAMIN D2) 50,000 UNIT CAPSULE. PO SCH (11:00)
[2018-12-29] MEDS: DOCUSATE SODIUM 100 MG CAPSULE. PO SCH ×2 (13:30→20:55)
[2018-12-29] MEDS: ASPIRIN ENTERIC COATED 81 MG TABLET.DR. PO SCH (13:30)
[2018-12-29] MEDS: buPROPion SR 150 MG TABLET.SA PO SCH (13:31)
[2018-12-29] MEDS: GABAPENTIN 100 MG CAPSULE. PO SCH ×2 (13:33→20:55)
[2018-12-29] MEDS: AMIODARONE HCL 200 MG TABLET. PO SCH (13:35)
[2018-12-29] MEDS: METOPROLOL SUCC 24HR ER 50 MG TAB.ER.24H. PO SCH (13:36)
[2018-12-29] MEDS: FENOFIBRATE,MICRONIZED 134 MG CAPSULE PO SCH (13:36)
[2018-12-29] MEDS: FUROSEMIDE 40 MG/4 ML VIAL. IVP SCH (13:37)
[2018-12-29] MEDS: HYDROcodone/APAP 7.5/325MG 1 TAB TABLET PO PRN ×2 (13:43→20:56)
--- NOTE | 2018-12-29 14:41 | EKG ---
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
[2018-12-29 15:52] VITALS: BP 179/75
--- NOTE | 2018-12-29 16:23 | PDOC1 ---
History and Physical Date of Admission Date of Admission 12/29/18 Identification/Chief Complaint Chief Complaint shortness of breath Source Source: Patient History of Present Illness History of Present Illness He has been battling lymphedema of his lower extremities and a leg wound and has been progressively SOA since going out for breakfast this am and presented to the ER Past Medical History Cardiovascular: AFIB, CAD, CHF, HTN, Hyperlipidemia, Other Pulmonary: No pertinent hx CENTRAL NERVOUS SYSTEM: Periperal neuropathy GI: GERD Heme/Onc: No pertinent hx Hepatobiliary: Cholelithiasis Psych: No pertinent hx Rheumatologic: Other (shoulder repair) ENT: No pertinent hx Renal/: Chronic renal insuff, Other (kidney stone) Endocrine: Diabetes Dermatology: Other (venous stasis with wound) Past Surgical History Past Surgical History: Pacemaker, Cholecystectomy, Hernia Repair Family History Family History: Coronary Artery Disease Social History Smoke: Quit ALCOHOL: none Drugs: None Current Problem List Problem List Problems Medical Problems: (1) Acute respiratory distress Status: Acute (2) Anemia Status: Acute (3) Chest pain Status: Acute (4) Diabetic ulcer of lower leg Status: Acute (5) Hypoxia Status: Acute (6) Morbid obesity Status: Acute (7) Pedal edema Status: Acute (8) Urinary tract infection Status: Acute Current Medications Current Medications Current Medications Medications (Trade) Dose Ordered Sig/Lito Start Time Stop Time Status Last Admin Dose Admin Acetaminophen/ Hydrocodone Bitart (Lortab 7.5/325) 1 tab PRN Q6HRS PRN 12/29/18 13:30 12/29/18 13:43 1 TAB Albuterol/ Ipratropium (Duoneb) 3 ml 1X ONCE 12/29/18 08:15 12/29/18 08:17 DC 12/29/18 08:40 3 ML Amiodarone HCl (Cordarone) 200 mg DAILY 12/30/18 09:00 UNV Aspirin (Ecotrin) 81 mg [id number] 12/30/18 08:00 UNV Atorvastatin Calcium (Lipitor) 40 mg HS 12/29/18 21:00 Bupropion HCl (Wellbutrin Sr) 150 mg DAILY 12/29/18 11:00 12/29/18 13:31 150 MG Ceftriaxone Sodium (Rocephin) 1 gm 1X ONCE 12/29/18 09:15 12/29/18 09:18 DC 12/29/18 09:33 1 GM Diltiazem HCl (Cardizem 24hr Cd) 240 mg DAILY 12/29/18 10:45 12/29/18 10:45 DC Docusate Sodium (Colace) 100 mg BID 12/29/18 11:00 12/29/18 13:30 100 MG Ergocalciferol (Vitamin D2) 50,000 unit WEEKLY 12/29/18 11:00 12/29/18 13:30 50,000 UNIT Fenofibrate (Lofibra) 134 mg DAILY 12/29/18 11:00 12/29/18 13:36 134 MG Furosemide (Lasix) 40 mg BID92 12/29/18 14:00 12/29/18 13:37 40 MG Gabapentin (Neurontin) 300 mg TID 12/29/18 14:00 12/29/18 13:33 300 MG Info (Anti-Coagulation Monitoring By Pharmacy) 1 each PRN DAILY PRN 12/29/18 10:30 Info (CONTRAST GIVEN -- Rx MONITORING) 1 each PRN DAILY PRN 12/29/18 09:45 12/31/18 09:44 Iohexol (Omnipaque 350 Mg/ml) 100 ml 1X ONCE 12/29/18 09:30 12/29/18 09:34 DC Methylprednisolone Sodium Succinate (SOLU-Medrol 125MG VIAL) 125 mg 1X ONCE 12/29/18 08:15 12/29/18 08:17 DC 12/29/18 08:27 125 MG Metoprolol Succinate (Toprol Xl) 50 mg DAILY 12/29/18 11:00 12/29/18 13:36 50 MG Non-Formulary Medication (Edoxaban Tosylate (Savaysa)) 60 mg DAILY 12/30/18 09:00 UNV Tizanidine HCl (Zanaflex) 2 mg PRN BID PRN 12/29/18 10:15 Allergies Allergies Allergies Coded Allergies Type Severity Reaction Last Updated Verified No Known Drug Allergies 04/18/18 No ROS Review of System CONSTITUTIONAL: No fever or chills EYES: No recent changes SKIN: venous stasis CARDIOVASCULAR: No chest pain, syncope, palpitations, or edema RESPIRATORY: see HPI GASTROINTESTINAL: No nausea, vomiting or abdominal pain NEUROLOGICAL: No headaches or weakness ENDOCRINE: No cold or heat intolerance GENITOURINARY: No urgency or frequency of urination MUSCULOSKELETAL: No back pain or joint pain LYMPHATICS: No enlarged lymph nodes PSYCHIATRIC: No anxiety or depression Physical Exam Physical Exam GEN.: Morbidly obese. No apparent distress. Alert and oriented. HEENT: Head is normocephalic, atraumatic NECK: Supple. LUNGS: diminished breath sounds, was initially tachypneic. HEART: afib per monitor with controlled rate, S1, S2 present. Peripheral edema present ABDOMEN: obese, Soft, nontender. Positive bowel sounds. EXTREMITIES: Without any cyanosis, 3+ edema of lower legs with serous fluid leaking from above left ankle. NEUROLOGIC: Normal speech, normal tone PSYCHIATRIC: Normal affect, normal mood. SKIN: venous stasis ulceration Vitals Vitals Vital Signs Date Time Temp Pulse Resp B/P (MAP) Pulse Ox O2 Delivery O2 Flow Rate FiO2 12/29/18 15:52 98.4 71 24 179/75 (109) 95 Nasal Cannula 3.0 98.4 Labs Labs Laboratory Tests Test 12/29/18 08:05 12/29/18 08:20 12/29/18 08:30 12/29/18 11:07 White Blood Count 11.6 x10^3/uL (4.0-11.0) Red Blood Count 4.19 x10^6/uL (4.30-5.70) Hemoglobin 11.1 g/dL (13.0-17.5) Hematocrit 35.0 % (39.0-53.0) Mean Corpuscular Volume 84 fL (79-100) Mean Corpuscular Hemoglobin 27 pg (25-35) Mean Corpuscular Hemoglobin Concent 32 g/dL (31-37) Red Cell Distribution Width 15.6 % (11.5-14.5) Platelet Count 428 x10^3/uL (140-400) Neutrophils (%) (Auto) 76 % (31-73) Lymphocytes (%) (Auto) 11 % (24-48) Monocytes (%) (Auto) 10 % (0-9) Eosinophils (%) (Auto) 2 % (0-3) Basophils (%) (Auto) 1 % (0-3) Neutrophils # (Auto) 8.8 x10^3uL (1.8-7.7) Lymphocytes # (Auto) 1.3 x10^3/uL (1.0-4.8) Monocytes # (Auto) 1.2 x10^3/uL (0.0-1.1) Eosinophils # (Auto) 0.2 x10^3/uL (0.0-0.7) Basophils # (Auto) 0.1 x10^3/uL (0.0-0.2) D-Dimer (Dayami) 0.74 ug/mlFEU (0.00-0.50) Sodium Level 143 mmol/L (136-145) Potassium Level 4.2 mmol/L (3.5-5.1) Chloride Level 104 mmol/L (98-107) Carbon Dioxide Level 26 mmol/L (21-32) Anion Gap 13 (6-14) Blood Urea Nitrogen 22 mg/dL (8-26) Creatinine 0.9 mg/dL (0.7-1.3) Estimated GFR (Cockcroft-Gault) 84.4 BUN/Creatinine Ratio 24 (6-20) Glucose Level 120 mg/dL (70-99) Lactic Acid Level 1.6 mmol/L (0.4-2.0) Calcium Level 8.7 mg/dL (8.5-10.1) Total Bilirubin 0.2 mg/dL (0.2-1.0) Aspartate Amino Transf (AST/SGOT) 13 U/L (15-37) Alanine Aminotransferase (ALT/SGPT) 25 U/L (16-63) Alkaline Phosphatase 63 U/L (46-116) Creatine Kinase 53 U/L (39-308) Troponin I Quantitative < 0.017 ng/mL (0.000-0.055) JW-Wnu-N-Type Natriuretic Peptide 101 pg/mL (0-124) Total Protein 7.6 g/dL (6.4-8.2) Albumin 3.4 g/dL (3.4-5.0) Albumin/Globulin Ratio 0.8 (1.0-1.7) O2 Saturation 98 % (92-99) Arterial Blood pH 7.42 (7.35-7.45) Arterial Blood pCO2 at Patient Temp 36 mmHg (35-46) Arterial Blood pO2 at Patient Temp 114 mmHg (65-108) Arterial Blood HCO3 23 mmol/L (21-28) Arterial Blood Base Excess -1 mmol/L (-3-3) FiO2 2.5 lpm nc Urine Collection Type Unknown Urine Color Yellow Urine Clarity Clear Urine pH 7.0 Urine Specific [place] 1.015 Urine Protein Negative mg/dL (NEG-TRACE) Urine Glucose (UA) Negative mg/dL (NEG) Urine Ketones (Stick) Negative mg/dL (NEG) Urine Blood Negative (NEG) Urine Nitrite Negative (NEG) Urine Bilirubin Negative (NEG) Urine Urobilinogen Dipstick 1.0 mg/dL (0.2 mg/dL) Urine Leukocyte Esterase Trace (NEG) Urine RBC 1-2 /HPF (0-2) Urine WBC 11-20 /HPF (0-4) Urine Squamous Epithelial Cells Occ /LPF Urine Bacteria Many /HPF (0-FEW) Urine Mucus Slight /LPF Glucose (Fingerstick) 158 mg/dL (70-99) Test 12/29/18 12:30 Troponin I Quantitative < 0.017 ng/mL (0.000-0.055) Laboratory Tests Test 12/29/18 08:05 12/29/18 08:20 12/29/18 08:30 12/29/18 11:07 White Blood Count 11.6 x10^3/uL (4.0-11.0) Red Blood Count 4.19 x10^6/uL (4.30-5.70) Hemoglobin 11.1 g/dL (13.0-17.5) Hematocrit 35.0 % (39.0-53.0) Mean Corpuscular Volume 84 fL (79-100) Mean Corpuscular Hemoglobin 27 pg (25-35) Mean Corpuscular Hemoglobin Concent 32 g/dL (31-37) Red Cell Distribution Width 15.6 % (11.5-14.5) Platelet Count 428 x10^3/uL (140-400) Neutrophils (%) (Auto) 76 % (31-73) Lymphocytes (%) (Auto) 11 % (24-48) Monocytes (%) (Auto) 10 % (0-9) Eosinophils (%) (Auto) 2 % (0-3) Basophils (%) (Auto) 1 % (0-3) Neutrophils # (Auto) 8.8 x10^3uL (1.8-7.7) Lymphocytes # (Auto) 1.3 x10^3/uL (1.0-4.8) Monocytes # (Auto) 1.2 x10^3/uL (0.0-1.1) Eosinophils # (Auto) 0.2 x10^3/uL (0.0-0.7) Basophils # (Auto) 0.1 x10^3/uL (0.0-0.2) D-Dimer (Dayami) 0.74 ug/mlFEU (0.00-0.50) Sodium Level 143 mmol/L (136-145) Potassium Level 4.2 mmol/L (3.5-5.1) Chloride Level 104 mmol/L (98-107) Carbon Dioxide Level 26 mmol/L (21-32) Anion Gap 13 (6-14) Blood Urea Nitrogen 22 mg/dL (8-26) Creatinine 0.9 mg/dL (0.7-1.3) Estimated GFR (Cockcroft-Gault) 84.4 BUN/Creatinine Ratio 24 (6-20) Glucose Level 120 mg/dL (70-99) Lactic Acid Level 1.6 mmol/L (0.4-2.0) Calcium Level 8.7 mg/dL (8.5-10.1) Total Bilirubin 0.2 mg/dL (0.2-1.0) Aspartate Amino Transf (AST/SGOT) 13 U/L (15-37) Alanine Aminotransferase (ALT/SGPT) 25 U/L (16-63) Alkaline Phosphatase 63 U/L (46-116) Creatine Kinase 53 U/L (39-308) Troponin I Quantitative < 0.017 ng/mL (0.000-0.055) NY-Hex-P-Type Natriuretic Peptide 101 pg/mL (0-124) Total Protein 7.6 g/dL (6.4-8.2) Albumin 3.4 g/dL (3.4-5.0) Albumin/Globulin Ratio 0.8 (1.0-1.7) O2 Saturation 98 % (92-99) Arterial Blood pH 7.42 (7.35-7.45) Arterial Blood pCO2 at Patient Temp 36 mmHg (35-46) Arterial Blood pO2 at Patient Temp 114 mmHg (65-108) Arterial Blood HCO3 23 mmol/L (21-28) Arterial Blood Base Excess -1 mmol/L (-3-3) FiO2 2.5 lpm nc Urine Collection Type Unknown Urine Color Yellow Urine Clarity Clear Urine pH 7.0 Urine Specific [place] 1.015 Urine Protein Negative mg/dL (NEG-TRACE) Urine Glucose (UA) Negative mg/dL (NEG) Urine Ketones (Stick) Negative mg/dL (NEG) Urine Blood Negative (NEG) Urine Nitrite Negative (NEG) Urine Bilirubin Negative (NEG) Urine Urobilinogen Dipstick 1.0 mg/dL (0.2 mg/dL) Urine Leukocyte Esterase Trace (NEG) Urine RBC 1-2 /HPF (0-2) Urine WBC 11-20 /HPF (0-4) Urine Squamous Epithelial Cells Occ /LPF Urine Bacteria Many /HPF (0-FEW) Urine Mucus Slight /LPF Glucose (Fingerstick) 158 mg/dL (70-99) Test 12/29/18 12:30 Troponin I Quantitative < 0.017 ng/mL (0.000-0.055) Images Images CT arteriogram of the chest. HISTORY: Short of breath, elevated d-dimer CT arteriogram of the chest was done using 100 mL Omnipaque 350 contrast. Sagittal and coronal MIP images were reconstructed. There is fatty change in the liver without a focal liver lesion. Spleen and adrenal glands are unremarkable. Upper poles the kidneys are normal. There is no pleural effusion. There is mild linear scarring or atelectasis in the lingula. There is a prominent epicardial fat pad along the heart border especially on the left. A pulmonary nodule is not identified. A pulmonary embolus is not identified. There is respiratory motion artifact which mildly limits the study for small peripheral emboli. IMPRESSION: 1. Mild scarring or atelectasis in the lingula. 2. No other infiltrates noted. 3. Negative for pulmonary embolus. 4. Mild limitations with respiratory motion artifact in the lung bases. VTE Prophylaxis Ordered VTE Prophylaxis Devices: Yes VTE Pharmacological Prophylaxi: Yes Assessment/Plan Assessment/Plan acute SOA with leukocytosis and possible UTI/sepsis - continue ceftriaxone IV pending culture, no evidence of PE, he has received IV lasix acute on chronic systolic and diastolic CHF - continue meds, diurese, check echo , cardiology consulted, await echo afib with hx of SSS and PPM, continue home meds and anticoagulation with eliquis anemia with normal MCV - monitor morbid obesity chronic lymphedema of lower extremities with venous stasis ulcer but no sign of cellulitis - wound care to follow Type 2 diabetes with peripheral neuropathy - continue meds, add SSI HTN - continue home meds HLP - continue home meds Gerardo GUZMÁN MD Dec 29, 2018 16:23
[2018-12-29] MEDS ORDERED: DEXTROSE 50% 25 GM / 50ML DISP.SYRIN. IV PRN (18:45)
[2018-12-29 19:45] VITALS: BP 149/70
[2018-12-29] MEDS: ATORVASTATIN CALCIUM 40 MG TABLET. PO SCH (20:55)
[2018-12-29] MEDS: APIXABAN 5 MG TABLET. PO SCH (20:56)
[2018-12-29 23:00] VITALS: BP 136/66
[2018-12-30] MEDS: HYDROcodone/APAP 7.5/325MG 1 TAB TABLET PO PRN ×4 (03:01→23:21)
[2018-12-30] MEDS: tiZANidine 4 MG TABLET. PO PRN ×2 (03:45→21:47)
[2018-12-30 03:51] VITALS: BP 143/72
[2018-12-30 07:50] VITALS: BP 166/74
[2018-12-30] MEDS ORDERED: ASPIRIN ENTERIC COATED 81 MG TABLET.DR. PO SCH (08:00)
[2018-12-30] MEDS: INSULIN LISPRO 300 UNITS/3 ML INSULN.PEN. SQ SCH ×3 (08:00→17:34)
[2018-12-30] MEDS: GABAPENTIN 100 MG CAPSULE. PO SCH ×3 (08:07→20:33)
[2018-12-30] MEDS: AMIODARONE HCL 200 MG TABLET. PO SCH (08:08)
[2018-12-30] MEDS: MULTIVITAMIN I-VITE TABLET. PO SCH (08:08)
[2018-12-30] MEDS: FENOFIBRATE,MICRONIZED 134 MG CAPSULE PO SCH (08:08)
[2018-12-30] MEDS: APIXABAN 5 MG TABLET. PO SCH (08:08)
[2018-12-30] MEDS: ASPIRIN ENTERIC COATED 81 MG TABLET.DR. PO SCH (08:09)
[2018-12-30] MEDS: METOPROLOL SUCC 24HR ER 50 MG TAB.ER.24H. PO SCH (08:09)
[2018-12-30] MEDS: buPROPion SR 150 MG TABLET.SA PO SCH (08:09)
[2018-12-30] MEDS: DOCUSATE SODIUM 100 MG CAPSULE. PO SCH ×2 (08:09→20:32)
[2018-12-30] MEDS: ASCORBIC ACID 500 MG TABLET PO SCH (08:09)
[2018-12-30] MEDS: cefTRIAXone IV Push 1 GM VIAL. IVP SCH (08:10)
[2018-12-30] MEDS: FUROSEMIDE 40 MG/4 ML VIAL. IVP SCH ×2 (08:16→15:03)
[2018-12-30] MEDS ORDERED: AMIODARONE HCL 200 MG TABLET. PO SCH (09:00)
[2018-12-30] MEDS ORDERED: NON FORMULARY ITEM (Edoxaban Tosylate (Savaysa) 60 MG) PO SCH (09:00)
[2018-12-30] MEDS ORDERED: ZOLPIDEM 5 MG TABLET. PO PRN (09:45)
--- NOTE | 2018-12-30 09:45 | PDOC ---
PROGRESS NOTES Subjective Less SOA, slept in recliner due to back pain but didn;t sleep much, ambulating without dyspnea, O2 sats normal on RA, left leg ulcer still draining serous fluid, urine not cloudy, good output Objective Afebrile General: NAD Heart: RRR Lungs: CTA Abd: obese, soft Ext: left leg dressing dry, 2-3+ edema Vital Signs Vital Signs Date Time Temp Pulse Resp B/P (MAP) Pulse Ox O2 Delivery O2 Flow Rate FiO2 12/30/18 08:09 64 166/74 12/30/18 07:50 97.8 22 98 Nasal Cannula 3.0 97.8 I & O Intake and Output 12/30/18 06:59 Intake Total 480 ml Output Total 1375 ml Balance -895 ml Intake Oral 480 ml Output Urine Total 1375 ml Stool Total 0 ml Assessment and Plan Problems Medical Problems: (1) Acute respiratory distress Status: Acute (2) Anemia Status: Acute (3) Chest pain Status: Acute (4) Diabetic ulcer of lower leg Status: Acute (5) Hypoxia Status: Acute (6) Morbid obesity Status: Acute (7) Pedal edema Status: Acute (8) Urinary tract infection Status: Acute A/P: acute SOA with leukocytosis and possible UTI/sepsis - continue ceftriaxone IV pending culture, no evidence of PE, he has received IV lasix - improving acute on chronic systolic and diastolic CHF - continue meds, diurese, check echo , cardiology consulted, await echo afib with hx of SSS and PPM, continue home meds and anticoagulation with eliquis anemia with normal MCV - monitor morbid obesity chronic lymphedema of lower extremities with venous stasis ulcer but no sign of cellulitis - wound care to follow Type 2 diabetes with peripheral neuropathy - continue meds, add SSI HTN - continue home meds HLP - continue home meds Gerardo GUZMÁN MD Dec 30, 2018 09:45
[2018-12-30 10:43] VITALS: BP 125/69
[2018-12-30 14:21] VITALS: BP 140/66
--- NOTE | 2018-12-30 16:29 | PDOC ---
CARDIOLOGY PROGRESS NOTE SUBJECTIVE: Feels slightly better. Denies any other issues overnight. Didn't sleep well. OBJECTIVE: Vital SIgns: Vital Signs Date Time Temp Pulse Resp B/P (MAP) Pulse Ox O2 Delivery O2 Flow Rate FiO2 12/30/18 14:21 97.8 18 140/66 (90) 96 Nasal Cannula 3.0 97.8 12/30/18 10:43 59 I & O Intake and Output 12/30/18 07:00 Intake Total 480 ml Output Total 1375 ml Balance -895 ml Intake Oral 480 ml Output Urine Total 1375 ml Stool Total 0 ml Objective: No significant changes to exam. Normal heart tones 3+ edema, not much improved. Lungs clear. CURRENT MEDICATIONS: atorvastatin 40mg daily lasix 40mg IVP x 2. Dilt 240mg daily Toprol XL 50mg daily ASA 81mg daily Amiodarone 200mg daily DIAGNOSTIC TESTING: No new testing. labs stable echo pending. ASSESSMENT: 1. Acute on chronic diastolic HF 2. HTN 3. PAF on eliquis. PLAN: 1. Will continue present meds for another 24 hours. Monitor UOP 2. If stable, then can restart eliquis tomorrow as no plans for any procedures given that he is diuresing now. Thanks. FAN DIAZ MD Dec 30, 2018 16:29
[2018-12-30 19:15] VITALS: BP 135/77
--- NOTE | 2018-12-30 19:55 | CARD ---
MR#: [id number] Date of Study: 12/30/2018 Ordering Physician: FAN ROTHMAN, Referring Physician: MARY DE LA ROSA, Tech: Pam Thakkar APPROVED REPORT EXAM: Two-dimensional and M-mode echocardiogram with Doppler and color Doppler. Other Information Quality : FairHR: 60bpm Rhythm : PacemakerTechnically limited study due to body habitus INDICATION Dyspnea Atrial Fibrillation CAD Chest Pain Edema Surgery/Intervention Pacemaker: RISK FACTORS Hypertension Hyperlipidemia Diabetes 2D DIMENSIONS RVDd3.3 (2.9-3.5cm)Left Atrium(2D)5.7 (1.6-4.0cm) IVSd1.4 (0.7-1.1cm)Aortic Root(2D)3.1 (2.0-3.7cm) LVDd5.9 (3.9-5.9cm)LVOT Diameter2.6 (1.8-2.4cm) PWd1.5 (0.7-1.1cm)LVDs4.0 (2.5-4.0cm) FS (%) 33.4 %SV107.6 ml LVEF(%)61.2 (>50%) Aortic Valve AoV Peak Tye.112.5cm/sAoV VTI24.5cm AO Peak GR.5.1mmHgLVOT VTI 13.37cm AO Mean GR.4mmHg Mitral Valve MV E Kzhdwhtt50.7cm/sMV DECEL [id number] MV A Mkgevlkt46.4cm/sE/A Ratio2.0 TDI Lateral E' P. V31.85cm/sMedial E' P. V28.12cm/s E/Lateral E'2.6E/Medial E'2.9 Tricuspid Valve TR P. Qrwblswp389mz/sRAP [id number] TR Peak Gr.65scBpTFCE52kuFv Pulmonary Vein S1 Dadoaggi60.6cm/sS2 Ffpshoxm30.83cm/s D2 Lgtvqxrn40.8cm/sPVa [id number] LEFT VENTRICLE The Left Ventricle is borderline dilated. There is mild to moderate concentric left ventricular hyper trophy. The left ventricular systolic function is normal and the ejection fraction is within normal r hina. The Ejection Fraction is 50-55%. There is grossly normal LV segmental wall motion. Tissue Doppl er imaging reveals moderate left ventricular diastolic dysfunction. RIGHT VENTRICLE The right ventricle is moderately dilated. The right ventricle is borderline hypertrophied. The right ventricular systolic function is normal. There is a pacemaker lead in the right ventricle. ATRIA The left atrium is moderately dilated. The right atrium is moderately dilated. There is a pacemaker l ead seen in the right atrium. The interatrial septum is intact with no evidence for an atrial septal defect or patent foramen ovale as noted on 2-D or Doppler imaging. AORTIC VALVE The aortic valve is not well visualized. Doppler and Color Flow revealed no significant aortic regurg itation. There is no significant aortic valvular stenosis. MITRAL VALVE The mitral valve is normal in structure and function. There is no evidence of mitral valve prolapse. There is no mitral valve stenosis. Doppler and Color-flow revealed trace mitral regurgitation. TRICUSPID VALVE The tricuspid valve is not well visualized. Doppler and Color Flow revealed trace tricuspid regurgita tion with an estimated PAP of 31 mmHg. There is no tricuspid valve stenosis. PULMONIC VALVE The pulmonic valve is not well visualized. Doppler and Color Flow revealed no pulmonic valvular regur gitation. There is no pulmonic valvular stenosis. GREAT VESSELS The aortic root is normal in size. The IVC was not well visualized. PERICARDIAL EFFUSION There is a trace pericardial effusion. Critical Notification Critical Value: No <Conclusion> The left ventricular systolic function is normal and the ejection fraction is within normal range. Th e Ejection Fraction is 50-55%. There is grossly normal LV segmental wall motion. There is a pacemaker lead in the right ventricle. The right ventricle is moderately dilated. The right ventricular systolic function is normal. Doppler and Color Flow revealed trace tricuspid regurgitation with an estimated PAP of 31 mmHg. Signed by : Fan Rothman, Electronically Approved : 12/30/2018 19:54:52
[2018-12-30] MEDS: ATORVASTATIN CALCIUM 40 MG TABLET. PO SCH (20:32)
[2018-12-30] MEDS: LACTOBACILLUS RHAMNOSUS GG 1 CAPSULE. PO SCH (20:33)
[2018-12-30 23:00] VITALS: BP 115/63
[2018-12-31 03:00] VITALS: BP 124/72
[2018-12-31] MEDS: HYDROcodone/APAP 7.5/325MG 1 TAB TABLET PO PRN ×3 (05:33→20:37)
[2018-12-31 07:34] VITALS: BP 142/86
[2018-12-31] MEDS: ASPIRIN ENTERIC COATED 81 MG TABLET.DR. PO SCH (08:43)
[2018-12-31] MEDS: FUROSEMIDE 40 MG/4 ML VIAL. IVP SCH ×2 (08:43→13:37)
[2018-12-31] MEDS: LACTOBACILLUS RHAMNOSUS GG 1 CAPSULE. PO SCH ×2 (08:43→20:36)
[2018-12-31] MEDS: DOCUSATE SODIUM 100 MG CAPSULE. PO SCH ×2 (08:44→20:37)
[2018-12-31] MEDS: ASCORBIC ACID 500 MG TABLET PO SCH (08:44)
[2018-12-31] MEDS: buPROPion SR 150 MG TABLET.SA PO SCH (08:44)
[2018-12-31] MEDS: FENOFIBRATE,MICRONIZED 134 MG CAPSULE PO SCH (08:44)
[2018-12-31] MEDS: AMIODARONE HCL 200 MG TABLET. PO SCH (08:44)
[2018-12-31] MEDS: MULTIVITAMIN I-VITE TABLET. PO SCH (08:44)
[2018-12-31] MEDS: METOPROLOL SUCC 24HR ER 50 MG TAB.ER.24H. PO SCH (08:45)
[2018-12-31] MEDS: cefTRIAXone IV Push 1 GM VIAL. IVP SCH (08:45)
[2018-12-31] MEDS: GABAPENTIN 100 MG CAPSULE. PO SCH ×3 (08:45→20:36)
[2018-12-31] MEDS: INSULIN LISPRO 300 UNITS/3 ML INSULN.PEN. SQ SCH ×3 (08:45→17:00)
[2018-12-31] MEDS ORDERED: IOHEXOL 350 MG/ML 100 ML VIAL. IV ONE (09:15)
[2018-12-31] MEDS ORDERED: CONTRAST GIVEN. MC PRN (09:30)
--- NOTE | 2018-12-31 10:30 | NUR ---
Wound care: Attempted to see patient for wound care. patient is well known to us from the wound clinic. Patient leaving unit for test. Spoke with RN whom stated she had already changed the dressing today. Wound care will see patient tomorrow for wound care.
[2018-12-31 10:49] VITALS: BP 136/77
--- NOTE | 2018-12-31 13:06 | NUR ---
SS following for discharge planning. SS reviewed pt chart. Pt is from home and is currently requiring oxygen. PT evaluated pt and recommended home. SS will continue to follow for discharge needs.
--- NOTE | 2018-12-31 13:40 | PDOC ---
SHYAM FREIRE INDUSTRIAL DIAMOND POLISHER 12/31/18 1340: CARDIO Progress Notes Date and Time Date of Service 12/31/18 Time of Evaluation 1210 Subjective Subjective: Other (breathing/edema improved. ) Vitals Vitals Vital Signs Date Time Temp Pulse Resp B/P (MAP) Pulse Ox O2 Delivery O2 Flow Rate FiO2 12/31/18 10:49 98.2 60 20 136/77 (96) 95 Nasal Cannula 3.0 98.2 Weight Weight [ ] Input and Output Intake and Output Intake and Output 12/31/18 07:00 Intake Total 2000 ml Output Total 2630 ml Balance -630 ml Intake Oral 2000 ml Output Urine Total 2630 ml Laboratory Labs Laboratory Tests Test 12/30/18 16:42 12/30/18 20:53 12/31/18 07:27 12/31/18 11:36 Glucose (Fingerstick) 154 mg/dL (70-99) 119 mg/dL (70-99) 102 mg/dL (70-99) 96 mg/dL (70-99) Microbiology Micro Microbiology 12/29/18 Blood Culture - Preliminary, Resulted NO GROWTH AFTER 2 DAYS Physical Exam HEENT: Neck Supple W Full Motion Chest: Symmetric LUNGS: Other (diminished bases) Heart: S1S2, RRR Abdomen: Soft N/T, Other (obese ) Extremities: Other (2+ bilateral LE edema ) Neurology: alert, follow commands Assessment Assessment 1. Acute on chronic diastolic HF; better compensated following diyr 2. Hypertension 3. PAFIB; maintaining SR. OAC held for potential pending procedure 4. PAD; runoff with vascular planned 5. Chronic LE lymphedema 6. SSS s/p PPM (Medtr[employer]) 7. DM, II 8. Hyperlipidemia Recommendations ASA for stroke prevention for now Rate/rhythm control with Cardizem, metoprolol, Amiodarone Device interrogation Ongoing diuresis Am labs JAIMIE GILMAN MD 01/01/19 1021: CARDIO Progress Notes Assessment Assessment Patient seen and examined 12/31/18. Agree with GPS NAVIGATION INSTALLER's assessment and plan. Acute on chronic diastolic heart failure better compensated with diuresis. Maintaining sinus rhythm with amiodarone. SHYAM FREIRE APRN Dec 31, 2018 13:40 JAIMIE GILMAN MD Jan 01, 2019 10:21
[2018-12-31] MEDS ORDERED: CEPH-264 PO (14:25)
[2018-12-31] MEDS ORDERED: METF500T16 PO (14:25)
[2018-12-31] MEDS ORDERED: HYDR-2765 PO (14:25)
[2018-12-31] MEDS ORDERED: APIX5TAB PO (14:25)
[2018-12-31] MEDS ORDERED: FURO-68 PO (14:25)
[2018-12-31 14:48] VITALS: BP 126/75
--- NOTE | 2018-12-31 16:03 | RAD ---
CTA of the abdomen, pelvis and both lower extremities with contrast, 12/31/2018: HISTORY: Lower extremity wounds Multidetector CT imaging was performed following an IV bolus injection of iodinated contrast material. Multiplanar reconstructions were produced including MIP images and 3-D volume reconstructions of the major arteries. There is mild calcific plaquing of the abdominal aorta without evidence of aneurysm. The celiac and superior mesenteric arterial origins are widely patent. There are single renal arteries bilaterally without evidence of high-grade stenosis. A patent inferior mesenteric artery is present. There is moderate calcific plaquing at the aortic bifurcation. There is mild plaquing in the common femoral arteries, left greater than right. No high-grade focal stenosis is identified. There are mild scattered plaques in the external iliac and common femoral arteries without evidence of high-grade stenosis. There are mild scattered plaques in the femoral arteries in both thighs, most prominent in the lower thigh on the right in the adductor canal region where there is mild associated stenosis. No high-grade femoral or popliteal arterial stenosis is identified on either side. Patent anterior tibial, posterior tibial and peroneal arteries are evident in both lower legs. There are mild scattered atherosclerotic plaques in these vessels. There is subcutaneous edema bilaterally in both lower legs which becomes quite extensive at the ankle and foot levels. Incidental CT findings include the presence of moderate multilevel degenerative change in the lumbar spine. IMPRESSION: 1. Mild to moderate scattered calcific plaquing as described above with only mild associated luminal narrowing at the aortic bifurcation and in the common iliac arteries, left greater than right. 2. No high-grade femoral-popliteal stenosis is identified. 3. Three-vessel arterial runoff in both lower legs. 4. Moderate to severe subcutaneous edema in both lower legs and feet. PQRS Compliance Statement: One or more of the following individualized dose reduction techniques were utilized for this examination: 1. Automated exposure control 2. Adjustment of the mA and/or kV according to patient size 3. Use of iterative reconstruction technique Electronically signed by: Tawanda Wang MD (12/31/2018 4:00 PM) [facility]
[2018-12-31 19:25] VITALS: BP 146/74
[2018-12-31] MEDS: tiZANidine 4 MG TABLET. PO PRN (20:36)
[2018-12-31] MEDS: ATORVASTATIN CALCIUM 40 MG TABLET. PO SCH (20:36)
--- NOTE | 2018-12-31 21:17 | PDOC ---
PROGRESS NOTES Subjective Subjective Patient feeling better. Leg swelling improved Objective Objective Vital Signs Date Time Temp Pulse Resp B/P (MAP) Pulse Ox O2 Delivery O2 Flow Rate FiO2 12/31/18 20:33 Room Air 3.0 12/31/18 19:25 98.0 60 20 146/74 (98) 90 98.0 Intake and Output 12/31/18 07:00 Intake Total 2000 ml Output Total 2630 ml Balance -630 ml Intake Oral 2000 ml Output Urine Total 2630 ml Physical Exam Abdomen: Normal bowel sounds Heart: Regular rate Extremities: Other (3+ edema) General: Alert Lungs: Clear to auscultation Assessment Assessment Problems Medical Problems: (1) Acute respiratory distress Status: Acute (2) Anemia Status: Acute (3) Chest pain Status: Acute (4) Diabetic ulcer of lower leg Status: Acute (5) Hypoxia Status: Acute (6) Morbid obesity Status: Acute (7) Pedal edema Status: Acute (8) Urinary tract infection Status: Acute acute on chronic systolic and diastolic CHF afib with hx of SSS and PPM, anemia with normal MCV - monitor morbid obesity chronic lymphedema of lower extremities with venous stasis ulcer but no sign of cellulitis Type 2 diabetes with peripheral neuropathy UTI HTN - continue home meds HLP - continue home meds Plan Plan of Care Continue diuresis increase activity IV lasix Await urine clx Comment Review of Relevant I have reviewed the following items ashwini (where applicable) has been applied. Labs Laboratory Tests Test 12/30/18 08:04 12/30/18 11:56 12/30/18 16:42 12/30/18 20:53 Glucose (Fingerstick) 133 mg/dL (70-99) 133 mg/dL (70-99) 154 mg/dL (70-99) 119 mg/dL (70-99) Test 12/31/18 07:27 12/31/18 11:36 12/31/18 17:06 12/31/18 20:49 Glucose (Fingerstick) 102 mg/dL (70-99) 96 mg/dL (70-99) 126 mg/dL (70-99) 115 mg/dL (70-99) Laboratory Tests Test 12/31/18 07:27 12/31/18 11:36 12/31/18 17:06 12/31/18 20:49 Glucose (Fingerstick) 102 mg/dL (70-99) 96 mg/dL (70-99) 126 mg/dL (70-99) 115 mg/dL (70-99) Microbiology 12/29/18 Blood Culture - Preliminary, Resulted NO GROWTH AFTER 2 DAYS 12/29/18 Urine Culture - Preliminary, Resulted 12/29/18 Urine Culture Result 1 (PARIS) - Preliminary, Resulted Medications Current Medications Albuterol/ Ipratropium (Duoneb) 3 ml 1X ONCE NEB Last administered on at 08:40; Start 12/29/18 at 08:15; Stop 12/29/18 at 08:17; Status DC Methylprednisolone Sodium Succinate (SOLU-Medrol 125MG VIAL) 125 mg 1X ONCE IV Last administered on 12/29/18at 08:27; Start 12/29/18 at 08:15; Stop 12/29/18 at 08:17; Status DC Furosemide (Lasix) 40 mg 1X ONCE IVP Last administered on 12/29/18at 08:26; Start 12/29/18 at 08:15; Stop 12/29/18 at 08:17; Status DC Ceftriaxone Sodium (Rocephin) 1 gm 1X ONCE IVP Last administered on 12/29/18at 09:33; Start 12/29/18 at 09:15; Stop 12/29/18 at 09:18; Status DC Iohexol (Omnipaque 350 Mg/ml) 100 ml 1X ONCE IV ; Start 12/29/18 at 09:30; Stop 12/29/18 at 09:34; Status DC Info (CONTRAST GIVEN -- Rx MONITORING) 1 each PRN DAILY PRN MC SEE COMMENTS; Start 12/29/18 at 09:45; Stop 12/31/18 at 09:44; Status DC Amiodarone HCl (Cordarone) 200 mg DAILY PO Last administered on 12/31/18at 08:44 ; Start 12/29/18 at 11:00 Aspirin (Ecotrin) 81 mg DAILY08 PO Last administered on 12/31/18at 08:43; Start 12/29/18 at 11:00 Atorvastatin Calcium (Lipitor) 40 mg HS PO Last administered on 12/31/18at 20:36 ; Start 12/29/18 at 21:00 Bupropion HCl (Wellbutrin Sr) 150 mg DAILY PO Last administered on 12/31/18at 08 :44; Start 12/29/18 at 11:00 Ergocalciferol (Vitamin D2) 50,000 unit WEEKLY PO Last administered on 13:30; Start 12/29/18 at 11:00 Furosemide (Lasix) 40 mg DAILY PO ; Start 12/29/18 at 11:00; Stop 12/29/18 at 11 :00; Status DC Gabapentin (Neurontin) 300 mg TID PO Last administered on 12/31/18 20:36; Start 12/29/18 at 14:00 Metoprolol Succinate (Toprol Xl) 50 mg DAILY PO Last administered on 12/31/18 08:45; Start 12/29/18 at 11:00 Docusate Sodium (Colace) 100 mg BID PO Last administered on 12/31/18 08:44; Start 12/29/18 at 11:00 Non-Formulary Medication (Edoxaban Tosylate (Savaysa)) 60 mg DAILY PO ; Start at 09:00; Status UNV Fenofibrate (Lofibra) 134 mg DAILY PO Last administered on 12/31/18 08:44; Start 12/29/18 at 11:00 Tizanidine HCl (Zanaflex) 2 mg PRN BID PRN PO MUSCLE SPASMS Last administered on 12/31/18 20:36; Start 12/29/18 at 10:15 Diltiazem HCl (Cardizem 24hr Cd) 240 mg DAILY PO Last administered on 08:44; Start 12/29/18 at 11:00 Info (Anti-Coagulation Monitoring By Pharmacy) 1 each PRN DAILY PRN MC SEE COMMENTS Last administered on 12/30/18 13:41; Start 12/29/18 at 10:30 Diltiazem HCl (Cardizem 24hr Cd) 240 mg DAILY PO ; Start 12/29/18 at 10:45; Stop 12/29/18 at 10:45; Status DC Amiodarone HCl (Cordarone) 200 mg DAILY PO ; Start 12/30/18 at 09:00; Status UNV Furosemide (Lasix) 40 mg BID92 IVP Last administered on 12/31/18 13:37; Start 12/29/18 at 14:00 Aspirin (Ecotrin) 81 mg DAILYWBKFT PO ; Start 12/30/18 at 08:00; Status UNV Acetaminophen/ Hydrocodone Bitart (Lortab 7.5/325) 1 tab PRN Q6HRS PRN PO PAIN Last administered on 12/31/18at 20:37; Start 12/29/18 at 13:30 Ceftriaxone Sodium (Rocephin) 1 gm Q24H IVP Last administered on 12/31/18at 08: 45; Start 12/30/18 at 09:00 Apixaban (Eliquis) 5 mg BID PO Last administered on 12/30/18at 08:08; Start at 21:00; Stop 12/30/18 at 10:33; Status DC Ascorbic Acid (Vitamin C) 500 mg DAILY PO Last administered on 12/31/18at 08:44 ; Start 12/30/18 at 09:00 Multivitamins/ Minerals (I-Darius) 1 tab DAILY PO Last administered on 12/31/18at 08:44; Start 12/30/18 at 09:00 Insulin Human Lispro (HumaLOG) 0-5 UNITS TIDWMEALS SQ Last administered on 12/30at 17:34; Start 12/30/18 at 08:00 Dextrose (Dextrose 50%-Water Syringe) 12.5 gm PRN Q15MIN PRN IV SEE COMMENTS; Start 12/29/18 at 18:45 Zolpidem Tartrate (Ambien) 5 mg PRN QHS PRN PO INSOMNIA; Start 12/30/18 at 09: 45 Lactobacillus Rhamnosus (Culturelle) 1 cap BID PO Last administered on at 20:36; Start 12/30/18 at 21:00 Iohexol (Omnipaque 350 Mg/ml) 95 ml 1X ONCE IV Last administered on 12/31/18at 09:15; Start 12/31/18 at 09:15; Stop 12/31/18 at 09:18; Status DC Info (CONTRAST GIVEN -- Rx MONITORING) 1 each PRN DAILY PRN MC SEE COMMENTS; Start 12/31/18 at 09:30; Stop 01/02/19 at 09:29 Active Scripts Active Keflex (Cephalexin) 500 Mg Capsule 2 Cap PO BID [Diltiazem Hcl] 240 MG Cap.er.24h 240 Mg PO DAILY Reported Metoprolol Succinate ( Xl ) (Metoprolol Succinate) 25 Mg Tab.er.24h 50 Mg PO DAILY Lasix (Furosemide) 40 Mg Tablet 1 Tab PO DAILY Aspir 81 (Aspirin) 81 Mg Tablet.dr 81 Mg PO DAILY Fenofibrate (Fenofibrate,Micronized) 134 Mg Capsule 134 Mg PO DAILY Tizanidine Hcl 2 Mg Tablet 2 Mg PO PRN BID PRN Gabapentin (Gabapentin) 100 Mg Capsule 300 Mg PO TID Docusate Sodium 100 Mg Tablet 100 Mg PO BID Bupropion Hcl Sr (Bupropion Hcl) 150 Mg Tablet.er 150 Mg PO DAILY Atorvastatin Calcium 40 Mg Tablet 40 Mg PO HS Vitamin D2 (Ergocalciferol (Vitamin D2)) 50,000 Unit Capsule 50,000 Unit PO WEEKLY Amiodarone Hcl 200 Mg Tablet 200 Mg PO DAILY Vitals/I & O Vital Sign - Last 24 Hours 12/30/18 12/31/18 12/31/18 12/31/18 23:00 03:00 07:34 08:00 Temp 97.6 97.6 97.8 97.6 97.6 97.8 Pulse 60 60 60 Resp 22 22 22 B/P (MAP) 115/63 (80) 124/72 (89) 142/86 (104) Pulse Ox 95 96 96 O2 Delivery Nasal Cannula Nasal Cannula Nasal Cannula Room Air O2 Flow Rate 3.0 3.0 3.0 3.0 12/31/18 12/31/18 12/31/18 12/31/18 08:44 08:44 08:45 10:49 Temp 98.2 98.2 Pulse 60 60 60 60 Resp 20 B/P (MAP) 142/86 142/86 142/86 136/77 (96) Pulse Ox 95 O2 Delivery Nasal Cannula O2 Flow Rate 3.0 12/31/18 12/31/18 12/31/18 12/31/18 13:36 14:36 14:48 19:25 Temp 97.7 98.0 97.7 98.0 Pulse 54 60 Resp 22 20 B/P (MAP) 126/75 (92) 146/74 (98) Pulse Ox 92 90 O2 Delivery Room Air Room Air Nasal Cannula Room Air O2 Flow Rate 3.0 12/31/18 20:33 O2 Delivery Room Air O2 Flow Rate 3.0 Intake and Output 4/14/19 4/14/19 4/15/19 15:00 23:00 07:00 Intake Total 300 ml 1300 ml 400 ml Output Total 930 ml 1100 ml 600 ml Balance -630 ml 200 ml -200 ml MARY DE LA ROSA MD Dec 31, 2018 21:17
[2018-12-31 22:45] VITALS: BP 123/69
[2019-01-01 02:50] VITALS: BP 139/85
[2019-01-01] MEDS: HYDROcodone/APAP 7.5/325MG 1 TAB TABLET PO PRN ×2 (04:11→12:23)
[2019-01-01 04:37] LABS: ALBUMIN 3.5 g/dL (3.4-5.0); ALBUMIN/GLOBULIN RATIO 0.9 (1.0-1.7); CALCIUM 9.1 mg/dL (8.5-10.1); CREATININE 1.3 mg/dL (0.7-1.3); GFR 55.2; POTASSIUM 4.1 mmol/L (3.5-5.1); TOTAL BILIRUBIN 0.2 mg/dL (0.2-1.0); TOTAL PROTEIN 7.6 g/dL (6.4-8.2)
[2019-01-01 07:00] VITALS: BP 117/67
[2019-01-01] MEDS: INSULIN LISPRO 300 UNITS/3 ML INSULN.PEN. SQ SCH ×2 (08:00→12:00)
[2019-01-01] MEDS: FUROSEMIDE 40 MG/4 ML VIAL. IVP SCH ×2 (08:31→13:49)
[2019-01-01] MEDS: MULTIVITAMIN I-VITE TABLET. PO SCH (08:32)
[2019-01-01] MEDS: FENOFIBRATE,MICRONIZED 134 MG CAPSULE PO SCH (08:32)
[2019-01-01] MEDS: GABAPENTIN 100 MG CAPSULE. PO SCH ×2 (08:32→13:49)
[2019-01-01] MEDS: METOPROLOL SUCC 24HR ER 50 MG TAB.ER.24H. PO SCH (08:33)
[2019-01-01] MEDS: AMIODARONE HCL 200 MG TABLET. PO SCH (08:33)
[2019-01-01] MEDS: LACTOBACILLUS RHAMNOSUS GG 1 CAPSULE. PO SCH (08:33)
[2019-01-01] MEDS: ASPIRIN ENTERIC COATED 81 MG TABLET.DR. PO SCH (08:34)
[2019-01-01] MEDS: ASCORBIC ACID 500 MG TABLET PO SCH (08:34)
[2019-01-01] MEDS: buPROPion SR 150 MG TABLET.SA PO SCH (08:34)
[2019-01-01] MEDS: cefTRIAXone IV Push 1 GM VIAL. IVP SCH (08:36)
[2019-01-01] MEDS: DOCUSATE SODIUM 100 MG CAPSULE. PO SCH (08:38)
[2019-01-01 11:00] VITALS: BP 129/66
--- NOTE | 2019-01-01 13:10 | SNU/HH DC ---
DISCHARGE WITH HOME HEALTH DISCHARGE INFORMATION: Discharge Date: Jan 01, 2019 Final Diagnosis: Problems Medical Problems: (1) Acute respiratory distress Status: Acute (2) Anemia Status: Acute (3) Chest pain Status: Acute (4) Diabetic ulcer of lower leg Status: Acute (5) Hypoxia Status: Acute (6) Morbid obesity Status: Acute (7) Pedal edema Status: Acute (8) Urinary tract infection Status: Acute Condition on Discharge: Stable CODE STATUS: Code Status: Full HOME HEALTH: Face to Face: I certify this patient is under my care and that I, or a nurse practitioner or physician's assistant tennis professional working with me, had a face to face encounter that meets the physician face to face encounter requirements with this patient on []. Medical Complications: CHF Long-Term For: Assess Cardiopulm Status, practice managers For Eval/Treatment: Yes Physical Therapy For: Evalulation/Treatment Occupational Therapy For: Evaluation/Treatment Home Health Aide For: Self-care Pt Meets Homebound Status: Fatigue w/ amb., Limited distance walking POST DISCHARGE ORDERS: Activity Instructions for Disc: No restrictions, Activity as tolerated Weight Bearing Status after Di: Other, see below DIET AFTER DISCHARGE: Cardiac Wound/Incision Care: Other, see below CHECKS AFTER DISCHARGE: Checks after discharge: Check blood press - daily TREATMENT/EQUIPMENT ORDERS: Adaptive Equipment Issued: Elliot CERTIFICATION STATEMENT: Certification Statement: Certification Statement: Based on the above finding, I certify that this patient is confined to the home and needs intermittent shelter care, physical therapy and/or speech therapy, or continues to need occupational therapy.~ This patient is under my care, and I have initiated the establishment of the plan of care.~ This patient will be followed by myself or a community physician who will periodically review the plan of care. Home Meds Active Scripts Metformin Hcl (METFORMIN HCL) 500 Mg Tablet, 500 MG PO BIDWMEALS for ANTI- DIABETIC for 30 Days, #60 TAB 0 Refills Prov:MARY DE LA ROSA MD 12/31/18 Apixaban (ELIQUIS) 5 Mg Tablet, 5 MG PO BID for afib for 30 Days, #60 TAB Prov:MARY DE LA ROSA MD 12/31/18 Cephalexin (KEFLEX) 500 Mg Capsule, 2 CAP PO BID for uti, #40 CAP Prov:MARY DE LA ROSA MD 12/31/18 Hydrocodone Bit/Acetaminophen (HYDROCODONE-APAP 7.5-325 ) 1 Tab Tablet, 1 TAB PO PRN Q6HRS PRN for PAIN for 30 Days, #60 TAB Prov:MARY DE LA ROSA MD 12/31/18 Furosemide (LASIX) 40 Mg Tablet, 2 TAB PO DAILY for chf for 90 Days, #180 TAB 1 Refill Prov:MARY DE LA ROSA MD 12/31/18 [Diltiazem Hcl] 240 MG CAP.ER.24H No Conflict Check, 240 MG PO DAILY, #30 TAB 6 Refills Prov:JAIMIE GILMAN MD 04/14/15 Reported Medications Metoprolol Succinate (METOPROLOL SUCCINATE ( XL )) 25 Mg Tab.er.24h, 50 MG PO DAILY for FOR HYPERTENSION, #30 TAB 0 Refills 12/11/15 Aspirin (ASPIR 81) 81 Mg Tablet.dr, 81 MG PO DAILY, TAB 04/13/15 Fenofibrate,Micronized (FENOFIBRATE) 134 Mg Capsule, 134 MG PO DAILY, CAP 04/13/15 Tizanidine Hcl (TIZANIDINE HCL) 2 Mg Tablet, 2 MG PO PRN BID PRN for MUSCLE SPASMS 02/17/14 Gabapentin (GABAPENTIN ) 100 Mg Capsule, 300 MG PO TID 02/17/14 Docusate Sodium (DOCUSATE SODIUM) 100 Mg Tablet, 100 MG PO BID 02/17/14 Bupropion Hcl (BUPROPION HCL SR) 150 Mg Tablet.er, 150 MG PO DAILY 02/17/14 Atorvastatin Calcium (ATORVASTATIN CALCIUM) 40 Mg Tablet, 40 MG PO HS, #30 TAB 0 Refills 02/17/14 Ergocalciferol (Vitamin D2) (VITAMIN D2) 50,000 Unit Capsule, 35665 UNIT PO WEEKLY 02/17/14 Amiodarone Hcl (AMIODARONE HCL) 200 Mg Tablet, 200 MG PO DAILY, #30 02/09/14 Discontinued Reported Medications Edoxaban Tosylate (Savaysa) 60 Mg Tablet, 60 MG PO DAILY 12/10/15 MARY DE LA ROSA MD Jan 01, 2019 13:10
--- NOTE | 2019-01-01 13:25 | PDOC ---
FABI ADAMSON GENERAL ASSEMBLER 01/01/19 1325: CARDIO Progress Notes Date and Time Date of Service 01/01/2019 Time of Evaluation 1300 Subjective Subjective: No Chest Pain, No shortness of breath, No Palpitations Vitals Vitals Vital Signs Date Time Temp Pulse Resp B/P (MAP) Pulse Ox O2 Delivery O2 Flow Rate FiO2 01/01/19 12:23 Room Air 3.0 01/01/19 11:00 98.0 54 18 129/66 (87) 97 98.0 Weight Weight [ ] Input and Output Intake and Output Intake and Output 01/01/19 07:00 Intake Total 1540 ml Output Total 3475 ml Balance -1935 ml Intake Oral 1540 ml Output Urine Total 3475 ml Laboratory Labs Laboratory Tests Test 12/31/18 17:06 12/31/18 20:49 01/01/19 04:05 01/01/19 07:19 Glucose (Fingerstick) 126 mg/dL (70-99) 115 mg/dL (70-99) 110 mg/dL (70-99) Sodium Level 141 mmol/L (136-145) Potassium Level 4.1 mmol/L (3.5-5.1) Chloride Level 101 mmol/L (98-107) Carbon Dioxide Level 34 mmol/L (21-32) Anion Gap 6 (6-14) Blood Urea Nitrogen 40 mg/dL (8-26) Creatinine 1.3 mg/dL (0.7-1.3) Estimated GFR (Cockcroft-Gault) 55.2 BUN/Creatinine Ratio 31 (6-20) Glucose Level 113 mg/dL (70-99) Calcium Level 9.1 mg/dL (8.5-10.1) Total Bilirubin 0.2 mg/dL (0.2-1.0) Aspartate Amino Transf (AST/SGOT) 12 U/L (15-37) Alanine Aminotransferase (ALT/SGPT) 25 U/L (16-63) Alkaline Phosphatase 59 U/L (46-116) Total Protein 7.6 g/dL (6.4-8.2) Albumin 3.5 g/dL (3.4-5.0) Albumin/Globulin Ratio 0.9 (1.0-1.7) Test 01/01/19 11:41 Glucose (Fingerstick) 144 mg/dL (70-99) Microbiology Micro Microbiology 4/13/19 Blood Culture - Preliminary, Resulted NO GROWTH AFTER 3 DAYS 12/29/18 Urine Culture - Preliminary, Resulted 12/29/18 Urine Culture Result 1 (PARIS) - Preliminary, Resulted Physical Exam HEENT: Neck Supple W Full Motion Chest: Symmetric LUNGS: Other (diminished bases) Heart: S1S2, RRR (SR) Abdomen: Soft N/T, Other (obese ) Extremities: Other (LE lymphedema) Neurology: alert, oriented, follow commands Assessment Assessment 1. Acute on chronic diastolic CHF: compensated. EF an WM nml 2. Hypertension: controlled 3. PAFIB; SR with intermittent atrial pacing 4. Mild to moderate LE PAD 5. Morbid obesity/Chronic LE lymphedema: BMI 53 6. SSS s/p PPM ([employer]tr[employer]): normal functioning AP 47% PLASTIC TILE LAYER 3.3% 5.8% AFIB burden 7. DM, II/ HLP Recommendations Continue home eliquis for stroke prevention Continue with Cardizem, metoprolol, Amiodarone PO Lasix therapy. May DC per cardiac standpoint. Follow up in January 31 at 1PM Lymphedema specialist prior to DC today. JAIMIE GILMAN MD 01/02/19 0818: CARDIO Progress Notes Assessment Assessment Patient seen and examined 01/01/19. Agree with STANDARD MACHINE STITCHER's assessment and plan. Acute on chronic diastolic heart failure better compensated. Okay for DC from cardiac standpoint. FABI ADAMSON APRN Jan 01, 2019 13:25 JAIMIE GILMAN MD Jan 02, 2019 08:18
[2019-01-01 15:00] VITALS: BP 135/56
--- NOTE | 2019-01-01 15:11 | NUR ---
SS following up with discharge planning. Orders received for home healthcare. SS met with pt to discuss home healthcare. Pt agreeable to referral for home healthcare and reported no preference of company. SS phoned and faxed referral to [facility], ; fax [phone]. Pt's RN notified.
[2019-01-01] MEDS ORDERED: CIPR500T94 PO (17:02)
--- NOTE | 2019-01-01 17:50 | NUR ---
Discharge Note: MALINDA LOPEZ Discharge instructions and discharge home medications reviewed with Patient and a copy given. All questions have been answered and understanding verbalized. The following instructions and handouts were given: HF, edema, Cipro, SOA, sodium and fluid restriction, follow up Monday with IR for runoff Discontinued lines and drains: Peripheral IV intact. Patient discharged to Home w/services with Self via Wheelchair
[2019-01-01] MEDS ORDERED: APIXABAN 5 MG TABLET. PO SCH (21:00)
--- NOTE | 2019-01-22 14:52 | DS ---
DATE OF DISCHARGE: 01/01/2019 ADMITTING DIAGNOSES: 1. Sepsis. 2. Urinary tract infection. 3. Acute on chronic diastolic congestive heart failure. 4. Acute on chronic respiratory failure. 5. Atrial fibrillation. 6. Sick sinus syndrome with pacemaker. 7. Morbid obesity. 8. Chronic lower extremity lymphedema. 9. Type 2 diabetes. 10. Hypertension. 11. Elevated cholesterol. 12. Venous stasis ulcers under care per [facility]. DISMISSAL DIAGNOSES: 1. Sepsis. 2. Urinary tract infection. 3. Acute on chronic diastolic congestive heart failure. 4. Acute on chronic respiratory failure. 5. Atrial fibrillation. 6. Sick sinus syndrome with pacemaker. 7. Morbid obesity. 8. Chronic lower extremity lymphedema. 9. Type 2 diabetes. 10. Hypertension. 11. Elevated cholesterol. 12. Venous stasis ulcers under care per [facility]ound [facility]. HISTORY OF PRESENT ILLNESS AND HOSPITAL COURSE: This patient is a 68-year-old male who was admitted with increasing shortness of breath and leg swelling. He was found to have ongoing acute on chronic systolic and diastolic congestive heart failure. He was diuresed. His chronic medical issues were controlled. His AFib and sick sinus syndrome were managed during hospital stay. His cellulitis was controlled and treated throughout hospital stay with plans to follow up with Wound Care Clinic. Urine cultures were done showing E. coli sensitive to Cipro and Levaquin. He remained back to baseline after diuresis and plans to discharge to home were made. DISCHARGE MEDICATIONS: He was discharged on the following medications: Eliquis 5 mg b.i.d., hydrocodone 7.5 q.6, metformin 500 b.i.d., amiodarone 200 mg daily, aspirin 81 mg daily, atorvastatin 40 mg daily, BuSpar 150 mg daily, Cipro 500 b.i.d. for 7 days, diltiazem 240 mg daily, Colace 100 mg b.i.d., vitamin D 50,000 units weekly, fenofibrate 134 mg daily, gabapentin 100 mg daily, metoprolol succinate 50 mg daily, tizanidine 2 mg b.i.d. p.r.n., Lasix was increased to 80 mg daily. DISCHARGE INSTRUCTIONS: He will follow up in the office for continued care and evaluation in 1-2 weeks. MARY DE LA ROSA MD DR: PIYUSH/vinayak JOB#: [id number] / [id number]
== END 2019-01-01 17:52 | disposition home health service (06) | DRG 871 ==
LOC: ER 07:56 → 2 NORTH 09:15
PROVIDERS: ADMIT Family Medicine; ATTEND Family Medicine
DX: A41.9 Sepsis, unspecified organism (principal); I50.33 Acute on chronic diastolic (congestive) heart failure; I13.0 Hypertensive heart and chronic kidney disease with heart failure and stage 1 through stage 4 chronic kidney disease, or unspecified chronic kidney disease; N39.0 Urinary tract infection, site not specified; E66.2 Morbid (severe) obesity with alveolar hypoventilation; L97.909 Non-pressure chronic ulcer of unspecified part of unspecified lower leg with unspecified severity; Z68.43 Body mass index [BMI] 50.0-59.9, adult; D64.9 Anemia, unspecified; E11.22 Type 2 diabetes mellitus with diabetic chronic kidney disease; E11.42 Type 2 diabetes mellitus with diabetic polyneuropathy; E11.622 Type 2 diabetes mellitus with other skin ulcer; E78.5 Hyperlipidemia, unspecified; E11.51 Type 2 diabetes mellitus with diabetic peripheral angiopathy without gangrene; I48.0 Paroxysmal atrial fibrillation; I25.10 Atherosclerotic heart disease of native coronary artery without angina pectoris; I83.009 Varicose veins of unspecified lower extremity with ulcer of unspecified site; I87.8 Other specified disorders of veins; I89.0 Lymphedema, not elsewhere classified; K21.9 Gastro-esophageal reflux disease without esophagitis; N18.9 Chronic kidney disease, unspecified; R09.02 Hypoxemia; R79.1 Abnormal coagulation profile; Z79.01 Long term (current) use of anticoagulants; Z82.49 Family history of ischemic heart disease and other diseases of the circulatory system; Z95.5 Presence of coronary angioplasty implant and graft; Z87.442 Personal history of urinary calculi; Z79.4 Long term (current) use of insulin
CPT/HCPCS: 36415; 36600; 71045; 71275; 75635; 80053; 81001; 82550; 82805; 82962; 83605; 83880; 84484; 85025; 85379; 87040; 87086; 87186; 93005; 93306; 94640; 96374; 96375; 97597; 99291; J0696; J1815; J1940; J2930; J7620; Q9967; 97110; 97530

== ENCOUNTER 2019-01-04 06:30 | Outpatient (CLI) | payer MEDICARE ==
[~2019-01-04 06:30] MED LIST changes: +APIX5TAB PO; +CEPH-264 PO; +CIPR500T94 PO; +HYDR-2765 PO; +METF500T16 PO
[2019-01-04 08:04] LABS: BASO # 0.1 x10^3/uL (0.0-0.2); BASO % 0 % (0-3); EOS # 0.3 x10^3/uL (0.0-0.7); EOS % 3 % (0-3); HEMATOCRIT 35.7 % (39.0-53.0); HEMOGLOBIN 11.3 g/dL (13.0-17.5); LYMPH % 17 % (24-48); MEAN CORPUSCULAR HEMOGLOBIN 26 pg (25-35); MEAN CORPUSCULAR HGB CONC 32 g/dL (31-37); MEAN CORPUSCULAR VOLUME 83 fL (79-100); MONO # 1.5 x10^3/uL (0.0-1.1); MONO % 13 % (0-9); NEUT # 7.8 x10^3uL (1.8-7.7); NEUT % 67 % (31-73); PLATELET COUNT 404 x10^3/uL (140-400); RED CELL DISTRIBUTION WIDTH 15.4 % (11.5-14.5); WHITE BLOOD COUNT 11.6 x10^3/uL (4.0-11.0)
[2019-01-04 08:11] LABS: CALCIUM 9.8 mg/dL (8.5-10.1); CREATININE 1.1 mg/dL (0.7-1.3); POTASSIUM 3.8 mmol/L (3.5-5.1)
[2019-01-04 08:16] LABS: PROTHROMBIN TIME PATIENT 13.8 SEC (11.7-14.0)
--- NOTE | 2019-01-04 08:25 | NUR ---
notes: Pt could not lay flat and wound on LE, nishi is wrapped by compression stockings. Katharine, the other RN notified Dr. Ferguson, IR doc. Dr. Ferguson talked to wound care team then talked to pt about possible cancellation of the procedure for the day. Pt and Dr. Ferguson concluded to cancel the procedure at IR. Pt contacted family member for the ride. This nurse took pt out to lobby via W/C.
== END 2019-01-04 08:10 | disposition home or self-care (01) ==
LOC: INTRAD 06:30
PROVIDERS: ATTEND Emergency Medicine Undersea and Hyperbaric Medicine
DX: Z53.9 Procedure and treatment not carried out, unspecified reason (principal)
CPT/HCPCS: 36415; 80048; 85025; 85610

== ENCOUNTER 2019-07-03 18:27 | Inpatient (IN) | payer MEDICARE ==
[~2019-07-03] VITALS: Ht 165.1 cm; Wt 142.9 kg
[~2019-07-03 18:27] MED LIST changes: -DILT120C85 PO; +DILT120C99 PO; +DOCU-109 PO; +FURO40TA4 PO; +METO2.5T PO; -TIZA2TAB PO; +TIZA2TAB2 PO
[2019-07-03] MEDS ORDERED: IV NORMAL SALINE 1000ML BAG 1,000 ML IV SCH (18:46)
--- NOTE | 2019-07-03 18:46 | PHYS DOC ---
Past Medical History Past Medical History: CAD, CHF, Diabetes-Type II, High Cholesterol, Hypertension, SC Past Surgical History: Cholecystectomy, Pacemaker, Other Additional Past Surgical Histo: Cardiac stent, ROTATAR CUFF, HERNIA Alcohol Use: None Drug Use: None Adult General Chief Complaint Chief Complaint: LOWER EXTREMITY EDEMA HPI HPI 69-year-old male presents to the emergency department with complaints of lower extremity edema. Patient's chronic venous stasis however states over the last 3 days has had increased drainage, skin sloughing, ulcerations to the lateral aspect of his left lower extremity. His had his legs is painful. He denies any fever, nausea, vomiting, chest pain, shortness of breath. Patient is a diabetic, hypertensive with underlying coronary artery disease. He is on chronic anticoagulation. Nothing makes pain worse, nothing makes his pain better. Patient states he has seen wound care however it has been a long time. His daughter is at the bedside states she's noticed significant changes are last couple days as well. Review of Systems Review of Systems Constitutional: Denies fever or chills [] Respiratory: Denies cough or shortness of breath [] Cardiovascular: No additional information not addressed in HPI [] GI: Denies abdominal pain, nausea, vomiting, bloody stools or diarrhea [] : Denies dysuria or hematuria [] Musculoskeletal: Denies back pain or joint pain [] Integument: Skin breakdown, redness, edema Neurologic: Denies headache, focal weakness or sensory changes [] All other systems were reviewed and found to be within normal limits, except as documented in this note. Current Medications Current Medications Current Medications Medications (Trade) Dose Ordered Sig/Lito Start Time Stop Time Status Last Admin Dose Admin Sodium Chloride 1,000 ml @ 1,000 mls/hr Q1H 07/03/19 18:46 07/03/19 19:45 DC 07/03/19 19:10 1,000 MLS/HR Vancomycin HCl (Vanco Per Pharmacy) 1 each 1X ONCE 07/03/19 19:00 07/03/19 19:01 DC Vancomycin HCl 2 gm/Sodium Chloride 500 ml @ 250 mls/hr 1X ONCE 07/03/19 19:00 07/03/19 20:59 DC 07/03/19 19:14 250 MLS/HR Allergies Allergies Allergies Coded Allergies Type Severity Reaction Last Updated Verified No Known Drug Allergies 04/18/18 No Physical Exam Physical Exam Constitutional: Well developed, well nourished, no acute distress, non-toxic appearance. [] HENT: Normocephalic, atraumatic, bilateral external ears normal, oropharynx moist, no oral exudates, nose normal. [] Eyes: PERRLA, EOMI, conjunctiva normal, no discharge. [] Neck: Normal range of motion, no tenderness, supple, no stridor. [] Cardiovascular:Heart rate regular rhythm, no murmur [] Lungs & Thorax: Bilateral breath sounds clear to auscultation [] Abdomen: Bowel sounds normal, soft, no tenderness, no masses, no pulsatile masses. [] Skin: Bilateral lower ext edema, skin breakdown with ulceration appreciated to lateral left lg Back: No tenderness, no CVA tenderness. [] Extremities: Tenderness, edema, weeping, ulceration to lateral aspect of left leg. [] Neurologic: Alert and oriented X 3, no focal deficits noted. [] Psychologic: Affect normal, judgement normal, mood normal. [] Current Patient Data Vital Signs Vital Signs Date Time Temp Pulse Resp B/P (MAP) Pulse Ox O2 Delivery O2 Flow Rate FiO2 07/03/19 21:00 20 184/76 (112) 93 Room Air 07/03/19 19:28 68 07/03/19 18:35 98.3 98.3 Lab Values Laboratory Tests Test 07/03/19 19:00 White Blood Count 12.6 x10^3/uL (4.0-11.0) H Red Blood Count 4.20 x10^6/uL (4.30-5.70) L Hemoglobin 11.1 g/dL (13.0-17.5) L Hematocrit 35.0 % (39.0-53.0) L Mean Corpuscular Volume 83 fL (79-100) Mean Corpuscular Hemoglobin 27 pg (25-35) Mean Corpuscular Hemoglobin Concent 32 g/dL (31-37) Red Cell Distribution Width 17.8 % (11.5-14.5) H Platelet Count 448 x10^3/uL (140-400) H Neutrophils (%) (Auto) 73 % (31-73) Lymphocytes (%) (Auto) 13 % (24-48) L Monocytes (%) (Auto) 12 % (0-9) H Eosinophils (%) (Auto) 1 % (0-3) Basophils (%) (Auto) 1 % (0-3) Neutrophils # (Auto) 9.2 x10^3/uL (1.8-7.7) H Lymphocytes # (Auto) 1.7 x10^3/uL (1.0-4.8) Monocytes # (Auto) 1.5 x10^3/uL (0.0-1.1) H Eosinophils # (Auto) 0.1 x10^3/uL (0.0-0.7) Basophils # (Auto) 0.1 x10^3/uL (0.0-0.2) Sodium Level 143 mmol/L (136-145) Potassium Level 4.2 mmol/L (3.5-5.1) Chloride Level 105 mmol/L (98-107) Carbon Dioxide Level 28 mmol/L (21-32) Anion Gap 10 (6-14) Blood Urea Nitrogen 27 mg/dL (8-26) H Creatinine 1.2 mg/dL (0.7-1.3) Estimated GFR (Cockcroft-Gault) 60.4 BUN/Creatinine Ratio 23 (6-20) H Glucose Level 116 mg/dL (70-99) H Lactic Acid Level 1.9 mmol/L (0.4-2.0) Calcium Level 9.3 mg/dL (8.5-10.1) Total Bilirubin 0.2 mg/dL (0.2-1.0) Aspartate Amino Transferase (AST) 11 U/L (15-37) L Alanine Aminotransferase (ALT) 16 U/L (16-63) Alkaline Phosphatase 65 U/L (46-116) C-Reactive Protein, Quantitative 89.0 mg/L (0-3.3) H Total Protein 7.7 g/dL (6.4-8.2) Albumin 3.2 g/dL (3.4-5.0) L Albumin/Globulin Ratio 0.7 (1.0-1.7) L Laboratory Tests 07/03/19 19:00 Laboratory Tests 07/03/19 19:00 EKG EKG [] Radiology/Procedures Radiology/Procedures [] Course & Med Decision Making Course & Med Decision Making Pertinent Labs and Imaging studies reviewed. (See chart for details) []69-year-old male presents to the emergency department with complaints of lower extremity edema. Patient's chronic venous stasis however states over the last 3 days has had increased drainage, skin sloughing, ulcerations to the lateral aspect of his left lower extremity. His had his legs is painful. He denies any fever, nausea, vomiting, chest pain, shortness of breath. Patient is a diabetic, hypertensive with underlying coronary artery disease. He is on chronic anticoagulation. Nothing makes pain worse, nothing makes his pain better. Patient states he has seen wound care however it has been a long time. His viviana precious is at the bedside states she's noticed significant changes are last couple days as well. Laboratory values reviewed, white blood cell count 12.6, lactic acid 1.9, CRP is 89. Patient received cultures, vancomycin provided the emergency department. Discussed admission with Dr. Hanh Richter Disclaimer Neelam Disclaimer This electronic medical record was generated, in whole or in part, using a voice recognition dictation system. Departure Departure Impression: Primary Impression: Lower extremity cellulitis Additional Impressions: Lymphedema of lower extremity DM2 (diabetes mellitus, type 2) HTN (hypertension) Disposition: ADMITTED INPATIENT Admitting Physician: Karian Schafer Condition: STABLE Referrals: MARY DE LA ROSA MD (PCP) Problem Qualifiers Primary Impression: Lower extremity cellulitis Laterality: unspecified laterality Qualified Codes: L03.119 - Cellulitis of unspecified part of limb Additional Impressions: Lymphedema of lower extremity Laterality: bilateral Qualified Codes: I89.0 - Lymphedema, not elsewhere classified DM2 (diabetes mellitus, type 2) Diabetes mellitus joint terminal attack controller insulin use: without fci use Diabetes mellitus complication status: without complication Qualified Codes: E11.9 - Type 2 diabetes mellitus without complications HTN (hypertension) Hypertension type: essential hypertension Qualified Codes: I10 - Essential (primary) hypertension TAHIRA DORAN MD Jul 03, 2019 18:46
[2019-07-03] MEDS ORDERED: VANCOMYCIN PER PHARMACY MC ONE (19:00)
[2019-07-03] MEDS ORDERED: VANCOMYCIN 2 GM in IV NORMAL SALINE 500ML BAG 500 ML IV ONE (19:00)
[2019-07-03 19:19] LABS: BASO # 0.1 x10^3/uL (0.0-0.2); BASO % 1 % (0-3); EOS # 0.1 x10^3/uL (0.0-0.7); EOS % 1 % (0-3); HEMOGLOBIN 11.1 g/dL (13.0-17.5); LYMPH # 1.7 x10^3/uL (1.0-4.8); LYMPH % 13 % (24-48); MEAN CORPUSCULAR HEMOGLOBIN 27 pg (25-35); MEAN CORPUSCULAR HGB CONC 32 g/dL (31-37); MEAN CORPUSCULAR VOLUME 83 fL (79-100); MONO # 1.5 x10^3/uL (0.0-1.1); MONO % 12 % (0-9); NEUT # 9.2 x10^3/uL (1.8-7.7); NEUT % 73 % (31-73); PLATELET COUNT 448 x10^3/uL (140-400); RED CELL DISTRIBUTION WIDTH 17.8 % (11.5-14.5); WHITE BLOOD COUNT 12.6 x10^3/uL (4.0-11.0)
[2019-07-03 19:35] LABS: CALCIUM 9.3 mg/dL (8.5-10.1); CREATININE 1.2 mg/dL (0.7-1.3); GFR 60.4; POTASSIUM 4.2 mmol/L (3.5-5.1)
[2019-07-03 19:40] LABS: ALBUMIN 3.2 g/dL (3.4-5.0); ALBUMIN/GLOBULIN RATIO 0.7 (1.0-1.7); TOTAL BILIRUBIN 0.2 mg/dL (0.2-1.0); TOTAL PROTEIN 7.7 g/dL (6.4-8.2)
[2019-07-03] MEDS ORDERED: ACETAMINOPHEN 325 MG TABLET. PO PRN (21:30)
[2019-07-03] MEDS ORDERED: ONDANSETRON PF 4 MG/2 ML VIAL. IV PRN (21:30)
[2019-07-03 22:53] LABS: BILIRUBIN,URINE NEGATIVE (NEG); CLARITY,URINE CLOUDY; COLOR,URINE YELLOW; NITRITE,URINE NEGATIVE (NEG); PROTEIN,URINE 30 mg/dL (NEG-TRACE)
[2019-07-03 22:58] LABS: BACTERIA,URINE 0 /HPF (0-FEW); RBC,URINE 0 /HPF (0-2)
[2019-07-03 22:59] LABS: SQUAMOUS EPITHELIAL CELL,UR OCC /LPF
[2019-07-03 23:00] VITALS: BP 164/71
[2019-07-04] MEDS: HYDROcodone/APAP 7.5/325MG 1 TAB TABLET PO PRN ×4 (00:57→21:10)
[2019-07-04] MEDS ORDERED: INFLUENZA VAX SCREEN BY RX. MC PRN (03:30)
[2019-07-04 03:39] VITALS: BP 143/57
[2019-07-04 07:00] VITALS: BP 153/69
[2019-07-04 07:13] LABS: BASO # 0.1 x10^3/uL (0.0-0.2); BASO % 1 % (0-3); EOS # 0.1 x10^3/uL (0.0-0.7); EOS % 1 % (0-3); HEMATOCRIT 33.4 % (39.0-53.0); HEMOGLOBIN 10.6 g/dL (13.0-17.5); LYMPH # 1.6 x10^3/uL (1.0-4.8); LYMPH % 12 % (24-48); MEAN CORPUSCULAR HEMOGLOBIN 27 pg (25-35); MEAN CORPUSCULAR HGB CONC 32 g/dL (31-37); MEAN CORPUSCULAR VOLUME 84 fL (79-100); MONO # 1.4 x10^3/uL (0.0-1.1); MONO % 11 % (0-9); NEUT % 77 % (31-73); PLATELET COUNT 432 x10^3/uL (140-400); RED CELL DISTRIBUTION WIDTH 17.5 % (11.5-14.5); WHITE BLOOD COUNT 13.1 x10^3/uL (4.0-11.0)
[2019-07-04 07:38] LABS: ALBUMIN 3.2 g/dL (3.4-5.0); ALBUMIN/GLOBULIN RATIO 0.7 (1.0-1.7); CALCIUM 9.4 mg/dL (8.5-10.1); GFR 74.5; TOTAL BILIRUBIN 0.4 mg/dL (0.2-1.0); TOTAL PROTEIN 7.5 g/dL (6.4-8.2)
[2019-07-04] MEDS: IPRATRPIUM/ALBUTEROL 0.5/2.5MG 3 ML NEBU. NEB SCH ×4 (07:43→21:17)
[2019-07-04] MEDS ORDERED: FURO40TA4 PO (08:56)
[2019-07-04] MEDS ORDERED: METO25TA4 PO (08:56)
[2019-07-04] MEDS ORDERED: OMEP20TA8 PO (08:56)
[2019-07-04] MEDS ORDERED: FLU VAX QS 2019-20 (36MOS+)/PF 0.5 ML SYRINGE. VAX IM ONE (09:00)
--- NOTE | 2019-07-04 09:00 | NUR ---
patient requested not to have the flu shot today. will attempt again tomorrow.
--- NOTE | 2019-07-04 09:04 | PDOC ---
PROGRESS NOTES Subjective Subjective Patient reports significant drainage from L LE continues. Objective Objective Vital Signs Date Time Temp Pulse Resp B/P (MAP) Pulse Ox O2 Delivery O2 Flow Rate FiO2 07/04/19 08:22 96 Room Air 07/04/19 07:00 98.3 76 22 153/69 (97) 98.3 Intake and Output 07/04/19 07:00 Intake Total 500 ml Output Total 150 ml Balance 350 ml Intake Oral 500 ml Output Urine Total 150 ml Physical Exam Abdomen: Normal bowel sounds, Soft, No tenderness Heart: Regular rate Extremities: Other (chronic lymphedema bilateral LE's. Superficial ulcerations lateral aspect lower left leg with serous drainage, diffuse erythema. R LE with chronic stasis changes, mild erythema) General: Alert, Oriented X3, No acute distress Lungs: Other (BS distant but CTA) Assessment Assessment Problems Medical Problems: (1) DM2 (diabetes mellitus, type 2) Status: Chronic (2) HTN (hypertension) Status: Chronic Plan Plan of Care 1. Chronic lymphedema with cellulitis L LE - patient reports wounds and drainage significantly worsened past few days. Continue Vancomycin, wound care consult pending. Patient sitting in recliner with feet on the floor, reminded to elevate legs. 2. HTN - resume home meds. 3. DM2 - has been controlled with Metformin, continue. 4. Hx PAF - s/p conversion several months ago. Remains in sinus rhythm, continue meds per Cardiology including Amiodarone and Eliquis. 5. Diastolic CHF - appears stable, continue daily Lasix. Last EF was 55%. 6. hx CAD, s/p stent - stable, continue his routine meds. 7. nocturnal hypoxia - patient was diagnosed with this during his last hospitalization, suspect TEETEE. Continue O2 at HS, patient presently not hypoxic on RA. 8. osteoarthritis - patient reports chronic pain in lower back and hips, continue [place] prn. Comment Review of Relevant I have reviewed the following items ashwini (where applicable) has been applied. Labs Laboratory Tests Test 07/03/19 19:00 07/03/19 22:40 07/03/19 23:15 07/04/19 05:37 White Blood Count 12.6 x10^3/uL (4.0-11.0) 13.1 x10^3/uL (4.0-11.0) Red Blood Count 4.20 x10^6/uL (4.30-5.70) 4.00 x10^6/uL (4.30-5.70) Hemoglobin 11.1 g/dL (13.0-17.5) 10.6 g/dL (13.0-17.5) Hematocrit 35.0 % (39.0-53.0) 33.4 % (39.0-53.0) Mean Corpuscular Volume 83 fL (79-100) 84 fL (79-100) Mean Corpuscular Hemoglobin 27 pg (25-35) 27 pg (25-35) Mean Corpuscular Hemoglobin Concent 32 g/dL (31-37) 32 g/dL (31-37) Red Cell Distribution Width 17.8 % (11.5-14.5) 17.5 % (11.5-14.5) Platelet Count 448 x10^3/uL (140-400) 432 x10^3/uL (140-400) Neutrophils (%) (Auto) 73 % (31-73) 77 % (31-73) Lymphocytes (%) (Auto) 13 % (24-48) 12 % (24-48) Monocytes (%) (Auto) 12 % (0-9) 11 % (0-9) Eosinophils (%) (Auto) 1 % (0-3) 1 % (0-3) Basophils (%) (Auto) 1 % (0-3) 1 % (0-3) Neutrophils # (Auto) 9.2 x10^3/uL (1.8-7.7) 10.0 x10^3/uL (1.8-7.7) Lymphocytes # (Auto) 1.7 x10^3/uL (1.0-4.8) 1.6 x10^3/uL (1.0-4.8) Monocytes # (Auto) 1.5 x10^3/uL (0.0-1.1) 1.4 x10^3/uL (0.0-1.1) Eosinophils # (Auto) 0.1 x10^3/uL (0.0-0.7) 0.1 x10^3/uL (0.0-0.7) Basophils # (Auto) 0.1 x10^3/uL (0.0-0.2) 0.1 x10^3/uL (0.0-0.2) Sodium Level 143 mmol/L (136-145) 141 mmol/L (136-145) Potassium Level 4.2 mmol/L (3.5-5.1) 4.0 mmol/L (3.5-5.1) Chloride Level 105 mmol/L (98-107) 106 mmol/L (98-107) Carbon Dioxide Level 28 mmol/L (21-32) 24 mmol/L (21-32) Anion Gap 10 (6-14) 11 (6-14) Blood Urea Nitrogen 27 mg/dL (8-26) 21 mg/dL (8-26) Creatinine 1.2 mg/dL (0.7-1.3) 1.0 mg/dL (0.7-1.3) Estimated GFR (Cockcroft-Gault) 60.4 74.5 BUN/Creatinine Ratio 23 (6-20) 21 (6-20) Glucose Level 116 mg/dL (70-99) 93 mg/dL (70-99) Lactic Acid Level 1.9 mmol/L (0.4-2.0) Calcium Level 9.3 mg/dL (8.5-10.1) 9.4 mg/dL (8.5-10.1) Total Bilirubin 0.2 mg/dL (0.2-1.0) 0.4 mg/dL (0.2-1.0) Aspartate Amino Transf (AST/SGOT) 11 U/L (15-37) 12 U/L (15-37) Alanine Aminotransferase (ALT/SGPT) 16 U/L (16-63) 16 U/L (16-63) Alkaline Phosphatase 65 U/L (46-116) 59 U/L (46-116) C-Reactive Protein, Quantitative 89.0 mg/L (0-3.3) Total Protein 7.7 g/dL (6.4-8.2) 7.5 g/dL (6.4-8.2) Albumin 3.2 g/dL (3.4-5.0) 3.2 g/dL (3.4-5.0) Albumin/Globulin Ratio 0.7 (1.0-1.7) 0.7 (1.0-1.7) Urine Collection Type Unknown Urine Color Yellow Urine Clarity Cloudy Urine pH 7.0 Urine Specific [place] 1.025 Urine Protein 30 mg/dL (NEG-TRACE) Urine Glucose (UA) Negative mg/dL (NEG) Urine Ketones (Stick) Negative mg/dL (NEG) Urine Blood Negative (NEG) Urine Nitrite Negative (NEG) Urine Bilirubin Negative (NEG) Urine Urobilinogen Dipstick 1.0 mg/dL (0.2 mg/dL) Urine Leukocyte Esterase Negative (NEG) Urine RBC 0 /HPF (0-2) Urine WBC 1-4 /HPF (0-4) Urine Squamous Epithelial Cells Occ /LPF Urine Bacteria 0 /HPF (0-FEW) Urine Mucus Slight /LPF Glucose (Fingerstick) 82 mg/dL (70-99) Test 07/04/19 07:35 Glucose (Fingerstick) 99 mg/dL (70-99) Laboratory Tests Test 07/03/19 19:00 07/03/19 22:40 07/03/19 23:15 07/04/19 05:37 White Blood Count 12.6 x10^3/uL (4.0-11.0) 13.1 x10^3/uL (4.0-11.0) Red Blood Count 4.20 x10^6/uL (4.30-5.70) 4.00 x10^6/uL (4.30-5.70) Hemoglobin 11.1 g/dL (13.0-17.5) 10.6 g/dL (13.0-17.5) Hematocrit 35.0 % (39.0-53.0) 33.4 % (39.0-53.0) Mean Corpuscular Volume 83 fL (79-100) 84 fL (79-100) Mean Corpuscular Hemoglobin 27 pg (25-35) 27 pg (25-35) Mean Corpuscular Hemoglobin Concent 32 g/dL (31-37) 32 g/dL (31-37) Red Cell Distribution Width 17.8 % (11.5-14.5) 17.5 % (11.5-14.5) Platelet Count 448 x10^3/uL (140-400) 432 x10^3/uL (140-400) Neutrophils (%) (Auto) 73 % (31-73) 77 % (31-73) Lymphocytes (%) (Auto) 13 % (24-48) 12 % (24-48) Monocytes (%) (Auto) 12 % (0-9) 11 % (0-9) Eosinophils (%) (Auto) 1 % (0-3) 1 % (0-3) Basophils (%) (Auto) 1 % (0-3) 1 % (0-3) Neutrophils # (Auto) 9.2 x10^3/uL (1.8-7.7) 10.0 x10^3/uL (1.8-7.7) Lymphocytes # (Auto) 1.7 x10^3/uL (1.0-4.8) 1.6 x10^3/uL (1.0-4.8) Monocytes # (Auto) 1.5 x10^3/uL (0.0-1.1) 1.4 x10^3/uL (0.0-1.1) Eosinophils # (Auto) 0.1 x10^3/uL (0.0-0.7) 0.1 x10^3/uL (0.0-0.7) Basophils # (Auto) 0.1 x10^3/uL (0.0-0.2) 0.1 x10^3/uL (0.0-0.2) Sodium Level 143 mmol/L (136-145) 141 mmol/L (136-145) Potassium Level 4.2 mmol/L (3.5-5.1) 4.0 mmol/L (3.5-5.1) Chloride Level 105 mmol/L (98-107) 106 mmol/L (98-107) Carbon Dioxide Level 28 mmol/L (21-32) 24 mmol/L (21-32) Anion Gap 10 (6-14) 11 (6-14) Blood Urea Nitrogen 27 mg/dL (8-26) 21 mg/dL (8-26) Creatinine 1.2 mg/dL (0.7-1.3) 1.0 mg/dL (0.7-1.3) Estimated GFR (Cockcroft-Gault) 60.4 74.5 BUN/Creatinine Ratio 23 (6-20) 21 (6-20) Glucose Level 116 mg/dL (70-99) 93 mg/dL (70-99) Lactic Acid Level 1.9 mmol/L (0.4-2.0) Calcium Level 9.3 mg/dL (8.5-10.1) 9.4 mg/dL (8.5-10.1) Total Bilirubin 0.2 mg/dL (0.2-1.0) 0.4 mg/dL (0.2-1.0) Aspartate Amino Transf (AST/SGOT) 11 U/L (15-37) 12 U/L (15-37) Alanine Aminotransferase (ALT/SGPT) 16 U/L (16-63) 16 U/L (16-63) Alkaline Phosphatase 65 U/L (46-116) 59 U/L (46-116) C-Reactive Protein, Quantitative 89.0 mg/L (0-3.3) Total Protein 7.7 g/dL (6.4-8.2) 7.5 g/dL (6.4-8.2) Albumin 3.2 g/dL (3.4-5.0) 3.2 g/dL (3.4-5.0) Albumin/Globulin Ratio 0.7 (1.0-1.7) 0.7 (1.0-1.7) Urine Collection Type Unknown Urine Color Yellow Urine Clarity Cloudy Urine pH 7.0 Urine Specific [place] 1.025 Urine Protein 30 mg/dL (NEG-TRACE) Urine Glucose (UA) Negative mg/dL (NEG) Urine Ketones (Stick) Negative mg/dL (NEG) Urine Blood Negative (NEG) Urine Nitrite Negative (NEG) Urine Bilirubin Negative (NEG) Urine Urobilinogen Dipstick 1.0 mg/dL (0.2 mg/dL) Urine Leukocyte Esterase Negative (NEG) Urine RBC 0 /HPF (0-2) Urine WBC 1-4 /HPF (0-4) Urine Squamous Epithelial Cells Occ /LPF Urine Bacteria 0 /HPF (0-FEW) Urine Mucus Slight /LPF Glucose (Fingerstick) 82 mg/dL (70-99) Test 07/04/19 07:35 Glucose (Fingerstick) 99 mg/dL (70-99) Medications Current Medications Vancomycin HCl (Vanco Per Pharmacy) 1 each 1X ONCE MC ; Start 07/03/19 at 19:00; Stop 07/03/19 at 19:01; Status DC Sodium Chloride 1,000 ml @ 1,000 mls/hr Q1H IV Last administered on 07/03/19at 19:10; Start 07/03/19 at 18:46; Stop 07/03/19 at 19:45; Status DC Vancomycin HCl 2 gm/Sodium Chloride 500 ml @ 250 mls/hr 1X ONCE IV Last administered on 07/03/19at 19:14; Start 07/03/19 at 19:00; Stop 07/03/19 at 20:59; Status DC Ondansetron HCl (Zofran) 4 mg PRN Q8HRS PRN IV NAUSEA/VOMITING; Start 07/03/19 at 21:30; Stop 07/04/19 at 21:29 Acetaminophen (Tylenol) 650 mg PRN Q4HRS PRN PO FEVER; Start 07/03/19 at 21:30; Stop 07/04/19 at 21:29 Albuterol/ Ipratropium (Duoneb) 3 ml RTQID NEB Last administered on 07/04/19at 07:43; Start 07/04/19 at 08:00; Stop 07/05/19 at 07:59 Acetaminophen/ Hydrocodone Bitart (Lortab 7.5/325) 1 tab PRN Q6HRS PRN PO PAIN Last administered on 07/04/19at 08:22; Start 07/04/19 at 00:45 Influenza Virus Vaccine Quadrival (Afluria Quad 2019-20 (3yr Up) Syringe) 0.5 ml ONCE ONCE VAX IM ; Start 07/04/19 at 09:00; Stop 07/04/19 at 09:01 Info (FLU VACCINE SCREEN per RX) 1 each PRN 1X PRN MC SEE COMMENTS; Start 07/04/19 at 03:30; Status Cancel Active Scripts Active Omeprazole 20 Mg Tablet.dr 1 Tab PO DAILY Metoprolol Tartrate 25 Mg Tablet 1 Tab PO BID Furosemide 40 Mg Tablet 40 Mg PO DAILY 30 Days Metolazone 2.5 Mg Tablet 5 Mg PO DAILY 30 Days Metformin Hcl 500 Mg Tablet 500 Mg PO BIDWMEALS 30 Days Eliquis (Apixaban) 5 Mg Tablet 5 Mg PO BID 30 Days Hydrocodone-Apap 7.5-325 (Hydrocodone Bit/Acetaminophen) 1 Tab Tablet 1 Tab PO PRN Q6HRS PRN 30 Days [Diltiazem Hcl] 240 MG Cap.er.24h 240 Mg PO DAILY Reported Colace (Docusate Sodium) 100 Mg Capsule 100 Mg PO BID PRN Aspir 81 (Aspirin) 81 Mg Tablet.dr 81 Mg PO DAILY Fenofibrate (Fenofibrate,Micronized) 134 Mg Capsule 134 Mg PO DAILY Tizanidine Hcl 2 Mg Tablet 2 Mg PO PRN BID PRN Gabapentin (Gabapentin) 100 Mg Capsule 300 Mg PO TID Bupropion Hcl Sr (Bupropion Hcl) 150 Mg Tablet.er 150 Mg PO DAILY Atorvastatin Calcium 40 Mg Tablet 40 Mg PO HS Amiodarone Hcl 200 Mg Tablet 200 Mg PO DAILY Vitals/I & O Vital Sign - Last 24 Hours 07/03/19 07/03/19 07/03/19 07/03/19 18:35 19:28 20:00 21:00 Temp 98.3 98.3 Pulse 63 68 Resp 18 20 20 20 B/P (MAP) 163/85 (111) 165/74 (104) 164/76 (105) 184/76 (112) Pulse Ox 99 94 94 93 O2 Delivery Room Air Room Air Room Air Room Air 07/03/19 07/03/19 07/03/19 07/04/19 22:00 23:00 23:30 00:57 Temp 98.2 98.2 Pulse 76 Resp 20 20 20 B/P (MAP) 163/70 (101) 164/71 (102) Pulse Ox 93 95 95 O2 Delivery Room Air Room Air Room Air 07/04/19 07/04/19 07/04/19 07/04/19 01:57 03:39 07:00 07:44 Temp 97.8 98.3 97.8 98.3 Pulse 74 76 Resp 20 22 B/P (MAP) 143/57 (85) 153/69 (97) Pulse Ox 92 92 93 96 O2 Delivery Room Air Room Air Room Air Room Air 07/04/19 07/04/19 08:00 08:22 Pulse Ox 96 O2 Delivery Room Air Room Air Intake and Output 07/03/19 07/03/19 07/04/19 15:00 23:00 07:00 Intake Total 400 ml 100 ml Output Total 150 ml Balance 400 ml -50 ml EMA ROGERS MD Jul 04, 2019 09:04
--- NOTE | 2019-07-04 09:45 | HP ---
ADMIT DATE: CHIEF COMPLAINT: Sores on the left leg. HISTORY OF PRESENT ILLNESS: The patient is a morbidly obese 69-year-old male who presented to the Emergency Room with the above complaint. He has a history of chronic lymphedema in his legs. He reported that for the past few days, he had experienced increased swelling, especially in his left lower leg. He developed some sores on his leg and a significant amount of drainage from the lower leg. These symptoms continued to worsen, so he came to the Emergency Room. Evaluation there showed evidence of cellulitis. Treatment was started. He was admitted for further care. PAST MEDICAL HISTORY: Morbid obesity; chronic lymphedema in bilateral legs; congestive heart failure with diastolic dysfunction, last ejection fraction 55%; paroxysmal atrial fibrillation, status post conversion; tachybrady syndrome, status post pacemaker placement; hypertension; diabetes mellitus type 2; coronary artery disease; hyperlipidemia; osteoarthritis. PAST SURGICAL HISTORY: Pacemaker placement, cholecystectomy, hernia repair. ALLERGIES: The patient has no known drug allergies. HOME MEDICATIONS: Amiodarone 200 mg daily, apixaban 5 mg b.i.d., aspirin 81 mg daily, atorvastatin 40 mg daily, Wellbutrin-SR 150 mg daily, fenofibrate 134 mg daily, Lasix 40 mg once daily, gabapentin 300 mg t.i.d., [place] 7.5/325 p.r.n., metformin 500 mg b.i.d., metoprolol tartrate 25 mg b.i.d., tizanidine 2 mg b.i.d. p.r.n., Cardizem CD 240 mg daily, omeprazole 20 mg daily, metolazone 5 mg daily. FAMILY HISTORY: Noncontributory. SOCIAL HISTORY: The patient is and lives with his elderly mother. He does not smoke cigarettes and does not drink alcohol to excess. REVIEW OF SYSTEMS: The patient denies fever or chills. He denies chest pain or palpitations. He denies a cough. He has chronic dyspnea on exertion, but this does not seem to have worsened recently. He has been wearing his oxygen at bedtime and during the day if he feels short of breath. He denies abdominal pain, nausea or vomiting. He denies problems with his bowels. He has been taking his medications daily. He sleeps in his recliner at night as this seems more comfortable for him and admits that he does not always elevate his legs very high at night or during the day due to back pain. He has chronic pain in his lower back and hips and takes hydrocodone several times daily for this. PHYSICAL EXAMINATION: GENERAL: The patient is alert and oriented x 3, sitting in a recliner with his feet on the floor in no acute distress. HEENT: PERRL, EOMI, sclerae clear. Oropharynx: Mucous membranes moist. NECK: Supple, without lymphadenopathy. CHEST: Breath sounds distant, but otherwise clear to auscultation. CARDIOVASCULAR: Regular rhythm without murmur. ABDOMEN: Soft, nontender, normoactive bowel sounds are present. EXTREMITIES: Bilateral lower extremities have severe chronic lymphedema with chronic venous stasis changes. The left lower extremity has a large area of superficial ulceration on the lateral aspect of the calf with copious serous drainage present. There is widespread blanching erythema in the area. The right lower extremity shows chronic venous stasis changes and only mild erythema distally. ASSESSMENT AND PLAN: 1. Chronic lymphedema with cellulitis of the left lower extremity. The patient's symptoms have apparently worsened significantly in the past few days. We will continue him on vancomycin and wound care consult is pending. The patient is again reminded of the importance of elevating his legs to help with his chronic edema. 2. Hypertension. Resume home medications. 3. Diabetes mellitus type 2. This has been well controlled with metformin, continue this with ADA diet. 4. History of paroxysmal atrial fibrillation, status post conversion several months ago. The patient remains in sinus rhythm. We will continue his amiodarone and Eliquis. 5. Diastolic congestive heart failure. This appears stable. Continue daily Lasix with metolazone. 6. History of coronary artery disease, status post stent placement. This appears stable. Continue his routine medication. 7. Nocturnal hypoxia. The patient was diagnosed with this during his last hospitalization and obstructive sleep apnea is suspected. Continue oxygen at bedtime. The patient is presently not hypoxic on room air. 8. Osteoarthritis. Continue hydrocodone p.r.n. EMA ROGERS MD DR: TRI/vinayak JOB#: [id number] / [id number] MTDD
[2019-07-04] MEDS ORDERED: VANCOMYCIN 2 GM in IV NORMAL SALINE 500ML BAG 500 ML IV ONE (10:00)
[2019-07-04 11:07] VITALS: BP 122/82
[2019-07-04] MEDS: PANTOPRAZOLE 40 MG TABLET.DR. PO SCH (11:20)
[2019-07-04] MEDS: buPROPion SR 150 MG TABLET.SA PO SCH (11:20)
[2019-07-04] MEDS: FENOFIBRATE,MICRONIZED 134 MG CAPSULE PO SCH (11:20)
[2019-07-04] MEDS: metOLazone 2.5 MG TABLET PO SCH (11:20)
[2019-07-04] MEDS: APIXABAN 5 MG TABLET. PO SCH ×2 (11:22→21:14)
[2019-07-04] MEDS: metFORMIN 500 MG TABLET PO SCH ×2 (11:22→18:03)
[2019-07-04] MEDS: AMIODARONE HCL 200 MG TABLET. PO SCH (11:23)
[2019-07-04] MEDS: GABAPENTIN 100 MG CAPSULE. PO SCH ×3 (11:23→21:08)
[2019-07-04] MEDS: METOPROLOL TART IMMED RELEASE 25 MG TABLET. PO SCH ×2 (11:24→21:10)
[2019-07-04] MEDS: FUROSEMIDE 40 MG TABLET. PO SCH (11:25)
[2019-07-04] MEDS: ASPIRIN ENTERIC COATED 81 MG TABLET.DR. PO SCH (11:25)
[2019-07-04] MEDS: VANCOMYCIN PER PHARMACY MC PRN ×2 (13:57→14:02)
--- NOTE | 2019-07-04 14:01 | NUR ---
Pharmacy Vancomycin Dosing Note S:Consulted to monitor and dose vancomycin started 07/03/19. O:MALINDA LOPEZ is a 69 year old M with Cellulitis . Height: 5 feet, 5 inches Weight: 142.361108 kg Yolyn Body Weight: 199.50 Adjusted Body Weight: 176.90 Dosing Weight: Actual Other Antibiotics: LABS: Last BUN: 21 Last Creatinine: 1.0 Creatinine Clearance: 95 mL/min Last WBC: 13.1 Last Procalcitonin: Tmax (past 24 hours): 98.5 Microbiology: I/O: 500/150 Drug Levels: Last level: on at Last dose given at Vancomycin Dosing: Loading Dose: 2000 mg x1 Dosing Weight: Actual Target Trough: 10-20 A: Based on: HT, WT AND RENAL FUNCTION P: 1. Begin Vancomycin 1500 mg IV q12h 2. Follow up Trough level on 07/05/19 at 2230 3. Pharmacy will continue to monitor, follow and adjust therapy as needed. LIVIA KOENIG, [facility], 07/04/19 2303
[2019-07-04 15:00] VITALS: BP 131/56
[2019-07-04] MEDS: LACTOBACILLUS RHAMNOSUS GG 1 CAPSULE. PO SCH ×2 (15:33→21:10)
--- NOTE | 2019-07-04 15:41 | NUR ---
wound care patient seen per wound care consult. see wound assessment. patient has a stasis ulcer to the left lower leg, the leg is red and swollen, the wound was cleaned, measured and pictured and redressed with recommendations of Yooliel Ag with absorbant pad with kerlix and tape, change daily and prn if saturated. Medigrip applied to bilateral lower legs. educated patient about elevating legs. wound care will continue to f/u.
[2019-07-04 19:49] VITALS: BP 120/55
[2019-07-04] MEDS: tiZANidine 4 MG TABLET. PO PRN (21:09)
[2019-07-04] MEDS: ATORVASTATIN CALCIUM 40 MG TABLET. PO SCH (21:10)
[2019-07-04 23:14] VITALS: BP 105/57
[2019-07-04] MEDS: VANCOMYCIN 1.5 GM in IV NORMAL SALINE 500ML BAG 500 ML IV SCH (23:35)
[2019-07-05 03:43] VITALS: BP 107/56
[2019-07-05] MEDS: HYDROcodone/APAP 7.5/325MG 1 TAB TABLET PO PRN ×3 (04:47→20:39)
[2019-07-05 05:38] LABS: CALCIUM 9.3 mg/dL (8.5-10.1); CREATININE 1.3 mg/dL (0.7-1.3); GFR 55.1; POTASSIUM 3.5 mmol/L (3.5-5.1)
[2019-07-05 07:10] VITALS: BP 111/69
[2019-07-05] MEDS: IPRATRPIUM/ALBUTEROL 0.5/2.5MG 3 ML NEBU. NEB SCH (07:56)
--- NOTE | 2019-07-05 08:21 | PDOC ---
PROGRESS NOTES Subjective Subjective Patient without complaint. Denies chest pain or palpitations. Seems to have less drainage from left leg. Objective Objective Vital Signs Date Time Temp Pulse Resp B/P (MAP) Pulse Ox O2 Delivery O2 Flow Rate FiO2 07/05/19 07:57 Room Air 07/05/19 05:47 19 95 07/05/19 03:43 98.3 70 107/56 (73) 98.3 Intake and Output 07/05/19 06:59 Intake Total 2120 ml Output Total 1750 ml Balance 370 ml Intake Oral 2120 ml Output Urine Total 1750 ml Physical Exam Abdomen: Normal bowel sounds, Soft, No tenderness Heart: Regular rate Extremities: Other (Tubigrips in place bilateral LE's. Patient sitting up in recliner with legs on the floor) General: Alert, Oriented X3, No acute distress Lungs: Other (BS distant but CTA) Assessment Assessment Problems Medical Problems: (1) DM2 (diabetes mellitus, type 2) Status: Chronic (2) HTN (hypertension) Status: Chronic Plan Plan of Care 1. Cellulitis L LE with chronic lymphedema - stable, continue present tx with Vancomycin and wound care. Patient aware of need to keep his legs elevated. 2. DM2 - well controlled, continue Metformin and ADA diet. 3. HTN - well controlled with home medications. 4. Hx PAF - patient remains in sinus but has frequent short runs of tachycardia. He is asymptomatic with this. Continue Amiodarone and Eliquis. Continue to follow on telemetry. 5. OA - stable, continue [place] prn. Comment Review of Relevant I have reviewed the following items ashwini (where applicable) has been applied. Labs Laboratory Tests Test 07/03/19 19:00 07/03/19 22:40 07/03/19 23:15 07/04/19 05:37 White Blood Count 12.6 x10^3/uL (4.0-11.0) 13.1 x10^3/uL (4.0-11.0) Red Blood Count 4.20 x10^6/uL (4.30-5.70) 4.00 x10^6/uL (4.30-5.70) Hemoglobin 11.1 g/dL (13.0-17.5) 10.6 g/dL (13.0-17.5) Hematocrit 35.0 % (39.0-53.0) 33.4 % (39.0-53.0) Mean Corpuscular Volume 83 fL (79-100) 84 fL (79-100) Mean Corpuscular Hemoglobin 27 pg (25-35) 27 pg (25-35) Mean Corpuscular Hemoglobin Concent 32 g/dL (31-37) 32 g/dL (31-37) Red Cell Distribution Width 17.8 % (11.5-14.5) 17.5 % (11.5-14.5) Platelet Count 448 x10^3/uL (140-400) 432 x10^3/uL (140-400) Neutrophils (%) (Auto) 73 % (31-73) 77 % (31-73) Lymphocytes (%) (Auto) 13 % (24-48) 12 % (24-48) Monocytes (%) (Auto) 12 % (0-9) 11 % (0-9) Eosinophils (%) (Auto) 1 % (0-3) 1 % (0-3) Basophils (%) (Auto) 1 % (0-3) 1 % (0-3) Neutrophils # (Auto) 9.2 x10^3/uL (1.8-7.7) 10.0 x10^3/uL (1.8-7.7) Lymphocytes # (Auto) 1.7 x10^3/uL (1.0-4.8) 1.6 x10^3/uL (1.0-4.8) Monocytes # (Auto) 1.5 x10^3/uL (0.0-1.1) 1.4 x10^3/uL (0.0-1.1) Eosinophils # (Auto) 0.1 x10^3/uL (0.0-0.7) 0.1 x10^3/uL (0.0-0.7) Basophils # (Auto) 0.1 x10^3/uL (0.0-0.2) 0.1 x10^3/uL (0.0-0.2) Sodium Level 143 mmol/L (136-145) 141 mmol/L (136-145) Potassium Level 4.2 mmol/L (3.5-5.1) 4.0 mmol/L (3.5-5.1) Chloride Level 105 mmol/L (98-107) 106 mmol/L (98-107) Carbon Dioxide Level 28 mmol/L (21-32) 24 mmol/L (21-32) Anion Gap 10 (6-14) 11 (6-14) Blood Urea Nitrogen 27 mg/dL (8-26) 21 mg/dL (8-26) Creatinine 1.2 mg/dL (0.7-1.3) 1.0 mg/dL (0.7-1.3) Estimated GFR (Cockcroft-Gault) 60.4 74.5 BUN/Creatinine Ratio 23 (6-20) 21 (6-20) Glucose Level 116 mg/dL (70-99) 93 mg/dL (70-99) Lactic Acid Level 1.9 mmol/L (0.4-2.0) Calcium Level 9.3 mg/dL (8.5-10.1) 9.4 mg/dL (8.5-10.1) Total Bilirubin 0.2 mg/dL (0.2-1.0) 0.4 mg/dL (0.2-1.0) Aspartate Amino Transf (AST/SGOT) 11 U/L (15-37) 12 U/L (15-37) Alanine Aminotransferase (ALT/SGPT) 16 U/L (16-63) 16 U/L (16-63) Alkaline Phosphatase 65 U/L (46-116) 59 U/L (46-116) C-Reactive Protein, Quantitative 89.0 mg/L (0-3.3) Total Protein 7.7 g/dL (6.4-8.2) 7.5 g/dL (6.4-8.2) Albumin 3.2 g/dL (3.4-5.0) 3.2 g/dL (3.4-5.0) Albumin/Globulin Ratio 0.7 (1.0-1.7) 0.7 (1.0-1.7) Urine Collection Type Unknown Urine Color Yellow Urine Clarity Cloudy Urine pH 7.0 Urine Specific [place] 1.025 Urine Protein 30 mg/dL (NEG-TRACE) Urine Glucose (UA) Negative mg/dL (NEG) Urine Ketones (Stick) Negative mg/dL (NEG) Urine Blood Negative (NEG) Urine Nitrite Negative (NEG) Urine Bilirubin Negative (NEG) Urine Urobilinogen Dipstick 1.0 mg/dL (0.2 mg/dL) Urine Leukocyte Esterase Negative (NEG) Urine RBC 0 /HPF (0-2) Urine WBC 1-4 /HPF (0-4) Urine Squamous Epithelial Cells Occ /LPF Urine Bacteria 0 /HPF (0-FEW) Urine Mucus Slight /LPF Glucose (Fingerstick) 82 mg/dL (70-99) Test 07/04/19 07:35 07/04/19 17:11 07/04/19 21:27 07/05/19 03:53 Glucose (Fingerstick) 99 mg/dL (70-99) 118 mg/dL (70-99) 169 mg/dL (70-99) Sodium Level 137 mmol/L (136-145) Potassium Level 3.5 mmol/L (3.5-5.1) Chloride Level 101 mmol/L (98-107) Carbon Dioxide Level 26 mmol/L (21-32) Anion Gap 10 (6-14) Blood Urea Nitrogen 23 mg/dL (8-26) Creatinine 1.3 mg/dL (0.7-1.3) Estimated GFR (Cockcroft-Gault) 55.1 Glucose Level 114 mg/dL (70-99) Calcium Level 9.3 mg/dL (8.5-10.1) Test 07/05/19 07:57 Glucose (Fingerstick) 105 mg/dL (70-99) Laboratory Tests Test 07/04/19 17:11 07/04/19 21:27 07/05/19 03:53 07/05/19 07:57 Glucose (Fingerstick) 118 mg/dL (70-99) 169 mg/dL (70-99) 105 mg/dL (70-99) Sodium Level 137 mmol/L (136-145) Potassium Level 3.5 mmol/L (3.5-5.1) Chloride Level 101 mmol/L (98-107) Carbon Dioxide Level 26 mmol/L (21-32) Anion Gap 10 (6-14) Blood Urea Nitrogen 23 mg/dL (8-26) Creatinine 1.3 mg/dL (0.7-1.3) Estimated GFR (Cockcroft-Gault) 55.1 Glucose Level 114 mg/dL (70-99) Calcium Level 9.3 mg/dL (8.5-10.1) Microbiology 07/03/19 Blood Culture - Preliminary, Resulted NO GROWTH AFTER 1 DAY Medications Current Medications Vancomycin HCl (Vanco Per Pharmacy) 1 each 1X ONCE MC ; Start 07/03/19 at 19:00; Stop 07/03/19 at 19:01; Status DC Sodium Chloride 1,000 ml @ 1,000 mls/hr Q1H IV Last administered on 07/03/19at 19:10; Start 07/03/19 at 18:46; Stop 07/03/19 at 19:45; Status DC Vancomycin HCl 2 gm/Sodium Chloride 500 ml @ 250 mls/hr 1X ONCE IV Last administered on 07/03/19at 19:14; Start 07/03/19 at 19:00; Stop 07/03/19 at 20:59; Status DC Ondansetron HCl (Zofran) 4 mg PRN Q8HRS PRN IV NAUSEA/VOMITING; Start 07/03/19 at 21:30; Stop 07/04/19 at 21:29; Status DC Acetaminophen (Tylenol) 650 mg PRN Q4HRS PRN PO FEVER; Start 07/03/19 at 21 :30; Stop 07/04/19 at 21:29; Status DC Albuterol/ Ipratropium (Duoneb) 3 ml RTQID NEB Last administered on 07/05/19at 07:56; Start 07/04/19 at 08:00; Stop 07/05/19 at 07:59; Status DC Acetaminophen/ Hydrocodone Bitart (Lortab 7.5/325) 1 tab PRN Q6HRS PRN PO PAIN Last administered on 07/05/19at 04:47; Start 07/04/19 at 00:45 Influenza Virus Vaccine Quadrival (Afluria Quad 2019-20 (3yr Up) Syringe) 0.5 ml ONCE ONCE VAX IM ; Start 07/04/19 at 09:00; Stop 07/04/19 at 09:05; Status DC Info (FLU VACCINE SCREEN per RX) 1 each PRN 1X PRN MC SEE COMMENTS; Start 07/04/19 at 03:30; Status Cancel Amiodarone HCl (Cordarone) 200 mg DAILY PO Last administered on 07/04/19at 11:23; Start 07/04/19 at 09:00 Apixaban (Eliquis) 5 mg BID PO Last administered on 07/04/19 21:14; Start 07/04/19 at 09:00 Aspirin (Ecotrin) 81 mg DAILY PO Last administered on 07/04/19at 11:25; Start 07/04/19 at 09:00 Atorvastatin Calcium (Lipitor) 40 mg HS PO Last administered on 07/04/19at 21:10; Start 07/04/19 at 21:00 Bupropion HCl (Wellbutrin Sr) 150 mg DAILY PO Last administered on 07/04/19at 11:20; Start 07/04/19 at 09:00 Docusate Sodium (Colace) 100 mg PRN BID PRN PO CONSTIPATION; Start 07/04/19 at 09:00 Fenofibrate (Lofibra) 134 mg DAILY PO Last administered on 07/04/19at 11:20; Start 07/04/19 at 09:00 Furosemide (Lasix) 40 mg DAILY PO Last administered on 07/04/19 11:25; Start 07/04/19 at 09:00 Gabapentin (Neurontin) 300 mg TID PO Last administered on 07/04/19at 21:08; Start 07/04/19 at 09:00 Metformin HCl (Glucophage) 500 mg BIDWMEALS PO Last administered on 07/04/19 18:03; Start 07/04/19 at 09:00 Metolazone (Zaroxolyn) 5 mg DAILY PO Last administered on 07/04/19at 11:20; Start 07/04/19 at 09:00 Metoprolol Tartrate (Lopressor) 25 mg BID PO Last administered on 07/04/19at 21:10; Start 07/04/19 at 09:00 Pantoprazole Sodium (Protonix) 40 mg DAILYAC PO Last administered on 07/04/19 11:20; Start 07/04/19 at 09:00 Tizanidine HCl (Zanaflex) 2 mg PRN Q12HRS PRN PO MUSCLE SPASMS Last administered on 07/04/19at 21:09; Start 07/04/19 at 09:15 Diltiazem HCl (Cardizem 24hr Cd) 240 mg DAILY PO Last administered on 07/04/19at 11:22; Start 07/04/19 at 09:00 Vancomycin HCl (Vanco Per Pharmacy) 1 each PRN DAILY PRN MC SEE COMMENTS Last administered on 07/04/19at 14:02; Start 07/04/19 at 09:15 Vancomycin HCl 2 gm/Sodium Chloride 500 ml @ 250 mls/hr 1X ONCE IV Last administered on 07/04/19at 11:20; Start 07/04/19 at 10:00; Stop 07/04/19 at 11:59; Status DC Vancomycin HCl 1.5 gm/Sodium Chloride 500 ml @ 250 mls/hr Q12H IV Last administered on 07/04/19at 23:35; Start 07/04/19 at 23:00 Vancomycin HCl (Vancomycin Trough Level) 1 each 1X ONCE MC ; Start 07/05/19 at 22:30; Stop 07/05/19 at 22:31 Lactobacillus Rhamnosus (Culturelle) 1 cap BID PO Last administered on 07/04/19at 21:10; Start 07/04/19 at 15:00 Active Scripts Active Omeprazole 20 Mg Tablet.dr 1 Tab PO DAILY Metoprolol Tartrate 25 Mg Tablet 1 Tab PO BID Furosemide 40 Mg Tablet 40 Mg PO DAILY 30 Days Metolazone 2.5 Mg Tablet 5 Mg PO DAILY 30 Days Metformin Hcl 500 Mg Tablet 500 Mg PO BIDWMEALS 30 Days Eliquis (Apixaban) 5 Mg Tablet 5 Mg PO BID 30 Days Hydrocodone-Apap 7.5-325 (Hydrocodone Bit/Acetaminophen) 1 Tab Tablet 1 Tab PO PRN Q6HRS PRN 30 Days [Diltiazem Hcl] 240 MG Cap.er.24h 240 Mg PO DAILY Reported Colace (Docusate Sodium) 100 Mg Capsule 100 Mg PO BID PRN Aspir 81 (Aspirin) 81 Mg Tablet.dr 81 Mg PO DAILY Fenofibrate (Fenofibrate,Micronized) 134 Mg Capsule 134 Mg PO DAILY Tizanidine Hcl 2 Mg Tablet 2 Mg PO PRN BID PRN Gabapentin (Gabapentin) 100 Mg Capsule 300 Mg PO TID Bupropion Hcl Sr (Bupropion Hcl) 150 Mg Tablet.er 150 Mg PO DAILY Atorvastatin Calcium 40 Mg Tablet 40 Mg PO HS Amiodarone Hcl 200 Mg Tablet 200 Mg PO DAILY Vitals/I & O Vital Sign - Last 24 Hours 07/04/19 07/04/19 07/04/19 07/04/19 08:22 11:07 11:22 11:23 Temp 98.5 98.5 Pulse 53 53 53 Resp 22 B/P (MAP) 122/82 (95) 122/82 122/82 Pulse Ox 96 94 O2 Delivery Room Air Room Air 07/04/19 07/04/19 07/04/19 07/04/19 11:24 11:31 15:00 15:33 Temp 98.1 98.1 Pulse 53 61 Resp 20 B/P (MAP) 122/82 131/56 (81) Pulse Ox 94 95 94 O2 Delivery Room Air Room Air Room Air 07/04/19 07/04/19 07/04/19 07/04/19 17:10 17:29 19:49 20:04 Temp 98.1 98.1 Pulse 61 Resp 22 B/P (MAP) 120/55 (76) Pulse Ox 94 96 O2 Delivery Room Air Room Air Room Air Room Air 07/04/19 07/04/19 07/04/19 07/04/19 21:10 21:10 21:17 22:10 Pulse 61 B/P (MAP) 131/56 Pulse Ox 94 95 95 O2 Delivery Room Air Room Air Room Air 07/04/19 07/05/19 07/05/19 07/05/19 23:14 03:43 04:47 05:47 Temp 99.0 98.3 99.0 98.3 Pulse 65 70 Resp 22 20 19 19 B/P (MAP) 105/57 (73) 107/56 (73) Pulse Ox 95 95 95 95 O2 Delivery Room Air Room Air Room Air Room Air 07/05/19 07:57 O2 Delivery Room Air Intake and Output 07/04/19 07/04/19 07/05/19 14:59 22:59 06:59 Intake Total 420 ml 1400 ml 300 ml Output Total 750 ml 1000 ml Balance 420 ml 650 ml -700 ml EMA ROGERS MD Jul 05, 2019 08:21
[2019-07-05] MEDS: buPROPion SR 150 MG TABLET.SA PO SCH (08:48)
[2019-07-05] MEDS: AMIODARONE HCL 200 MG TABLET. PO SCH (08:49)
[2019-07-05] MEDS: FENOFIBRATE,MICRONIZED 134 MG CAPSULE PO SCH (08:49)
[2019-07-05] MEDS: LACTOBACILLUS RHAMNOSUS GG 1 CAPSULE. PO SCH ×2 (08:49→20:36)
[2019-07-05] MEDS: GABAPENTIN 100 MG CAPSULE. PO SCH ×3 (08:49→20:36)
[2019-07-05] MEDS: metOLazone 2.5 MG TABLET PO SCH (08:49)
[2019-07-05] MEDS: FUROSEMIDE 40 MG TABLET. PO SCH (08:50)
[2019-07-05] MEDS: metFORMIN 500 MG TABLET PO SCH ×2 (08:50→16:30)
[2019-07-05] MEDS: ASPIRIN ENTERIC COATED 81 MG TABLET.DR. PO SCH (08:50)
[2019-07-05] MEDS: APIXABAN 5 MG TABLET. PO SCH ×2 (08:50→20:36)
[2019-07-05] MEDS: PANTOPRAZOLE 40 MG TABLET.DR. PO SCH (08:51)
[2019-07-05] MEDS: METOPROLOL TART IMMED RELEASE 25 MG TABLET. PO SCH ×2 (08:51→20:37)
[2019-07-05] MEDS: DOCUSATE SODIUM 100 MG CAPSULE. PO PRN ×2 (08:57→20:42)
[2019-07-05] MEDS: VANCOMYCIN 1.5 GM in IV NORMAL SALINE 500ML BAG 500 ML IV SCH (11:16)
[2019-07-05 11:24] VITALS: BP 124/51
[2019-07-05 15:00] VITALS: BP 137/84
[2019-07-05 19:56] VITALS: BP 134/82
[2019-07-05] MEDS: ATORVASTATIN CALCIUM 40 MG TABLET. PO SCH (20:36)
[2019-07-05 22:46] LABS: VANC TR 27.3 mcg/mL (10.0-20.0)
[2019-07-05 23:33] VITALS: BP 121/45
[2019-07-06] MEDS: VANCOMYCIN PER PHARMACY MC PRN ×2 (00:50→13:44)
--- NOTE | 2019-07-06 00:52 | NUR ---
Pharmacy Vancomycin Dosing Note S: Consulted to monitor and dose vancomycin started 07/03/19. O: MALINDA LOPEZ is a 69 year old M with Cellulitis, . Other Antibiotics: N/A LABS: Last BUN: 23 Last Creatinine: 1.3 Creatinine Clearance: 73 mL/min Last WBC: 13.1 Last Procalcitonin: Tmax (past 24 hours): 98.5 Microbiology: BLOOD CX (07/03): NGTD I/O: 2120/1750 Drug Levels: Last Trough level: 27.3 on 07/05/19 at 2220 Last dose given 07/05/19 at 1115 Vancomycin Dosing: Dosing Weight: Actual Target Trough: 10-20 A: Based on: Trough, Actual Wt and CrCl P: 1. 07/05/19 2300 Vancomycin 1500 mg IV q12h dose HELD Future Vancomycin dosing Trough results 2. Follow up Trough level on 07/06/19 at 1100 3. Pharmacy will continue to monitor, follow and adjust therapy as needed. WALLACE RUTH RPH, 07/06/19 005 Signed: 07/06/19 at 0058 by WALLACE RUTH RPH PHA
[2019-07-06 03:53] VITALS: BP 114/66
[2019-07-06] MEDS: HYDROcodone/APAP 7.5/325MG 1 TAB TABLET PO PRN ×3 (04:07→20:16)
[2019-07-06 07:00] VITALS: BP 115/60
[2019-07-06] MEDS: FENOFIBRATE,MICRONIZED 134 MG CAPSULE PO SCH (09:19)
[2019-07-06] MEDS: PANTOPRAZOLE 40 MG TABLET.DR. PO SCH (09:19)
[2019-07-06] MEDS: METOPROLOL TART IMMED RELEASE 25 MG TABLET. PO SCH ×2 (09:19→20:19)
[2019-07-06] MEDS: metOLazone 2.5 MG TABLET PO SCH (09:19)
[2019-07-06] MEDS: AMIODARONE HCL 200 MG TABLET. PO SCH (09:20)
[2019-07-06] MEDS: ASPIRIN ENTERIC COATED 81 MG TABLET.DR. PO SCH (09:20)
[2019-07-06] MEDS: LACTOBACILLUS RHAMNOSUS GG 1 CAPSULE. PO SCH ×2 (09:20→20:17)
[2019-07-06] MEDS: GABAPENTIN 100 MG CAPSULE. PO SCH ×3 (09:20→20:17)
[2019-07-06] MEDS: buPROPion SR 150 MG TABLET.SA PO SCH (09:20)
[2019-07-06] MEDS: metFORMIN 500 MG TABLET PO SCH ×2 (09:21→17:53)
[2019-07-06] MEDS: APIXABAN 5 MG TABLET. PO SCH ×2 (09:21→20:17)
[2019-07-06] MEDS: FUROSEMIDE 40 MG TABLET. PO SCH (09:21)
[2019-07-06 11:00] VITALS: BP 121/55
[2019-07-06 11:31] LABS: VANC TR 12.1 mcg/mL (10.0-20.0)
--- NOTE | 2019-07-06 12:46 | PDOC ---
PROGRESS NOTES Subjective Subjective Patient without complaint, denies pain at this time. Sitting in chair with legs down. Objective Objective Vital Signs Date Time Temp Pulse Resp B/P (MAP) Pulse Ox O2 Delivery O2 Flow Rate FiO2 07/06/19 11:00 97.4 80 18 121/55 (77) 97 97.4 07/06/19 08:00 Room Air Intake and Output 07/06/19 07:00 Intake Total 1160 ml Output Total 3700 ml Balance -2540 ml Intake Oral 1160 ml Output Urine Total 3700 ml Physical Exam Abdomen: Normal bowel sounds, Soft, No tenderness Heart: Regular rate Extremities: Other (tubigrips in place bilateral LE's) General: Alert, Oriented X3, No acute distress Lungs: Other (BS distant throughout but otherwise CTA) Assessment Assessment Problems Medical Problems: (1) DM2 (diabetes mellitus, type 2) Status: Chronic (2) HTN (hypertension) Status: Chronic Plan Plan of Care 1. Cellulitis L LE with chronic lymphedema - stable, continue present tx with Vancomycin and wound care. Patient not compliant with elevating legs during the day. Sleeping in the recliner at night despite nursing efforts to have him sleep in bed. 2. DM2 - well controlled, continue Metformin. 3. HTN - well controlled, continue present medication. 4. Hx PAF - remains in sinus, occasionally paced. Continue medications per Cardiology. 5. OA - stable, continue po pain meds as needed. Comment Review of Relevant I have reviewed the following items ashwini (where applicable) has been applied. Labs Laboratory Tests Test 07/04/19 17:11 07/04/19 21:27 07/05/19 03:53 07/05/19 07:57 Glucose (Fingerstick) 118 mg/dL (70-99) 169 mg/dL (70-99) 105 mg/dL (70-99) Sodium Level 137 mmol/L (136-145) Potassium Level 3.5 mmol/L (3.5-5.1) Chloride Level 101 mmol/L (98-107) Carbon Dioxide Level 26 mmol/L (21-32) Anion Gap 10 (6-14) Blood Urea Nitrogen 23 mg/dL (8-26) Creatinine 1.3 mg/dL (0.7-1.3) Estimated GFR (Cockcroft-Gault) 55.1 Glucose Level 114 mg/dL (70-99) Calcium Level 9.3 mg/dL (8.5-10.1) Test 07/05/19 11:52 07/05/19 17:01 07/05/19 21:05 07/05/19 22:20 Glucose (Fingerstick) 112 mg/dL (70-99) 107 mg/dL (70-99) 136 mg/dL (70-99) Vancomycin Level Trough 27.3 mcg/mL (10.0-20.0) Vancomycin Last Dose Date 07/05/19 Vancomycin Last Dose Time 1100 Test 07/06/19 07:10 07/06/19 11:00 07/06/19 11:48 Glucose (Fingerstick) 103 mg/dL (70-99) 107 mg/dL (70-99) Vancomycin Level Trough 12.1 mcg/mL (10.0-20.0) Vancomycin Last Dose Date 07/05/19 Vancomycin Last Dose Time 1115 Laboratory Tests Test 07/05/19 17:01 07/05/19 21:05 07/05/19 22:20 07/06/19 07:10 Glucose (Fingerstick) 107 mg/dL (70-99) 136 mg/dL (70-99) 103 mg/dL (70-99) Vancomycin Level Trough 27.3 mcg/mL (10.0-20.0) Vancomycin Last Dose Date 07/05/19 Vancomycin Last Dose Time 1100 Test 07/06/19 11:00 07/06/19 11:48 Vancomycin Level Trough 12.1 mcg/mL (10.0-20.0) Vancomycin Last Dose Date 07/05/19 Vancomycin Last Dose Time 1115 Glucose (Fingerstick) 107 mg/dL (70-99) Microbiology 07/03/19 Blood Culture - Preliminary, Resulted NO GROWTH AFTER 2 DAYS Medications Current Medications Vancomycin HCl (Vanco Per Pharmacy) 1 each 1X ONCE MC Last administered on 07/03/19at 19:00; Start 07/03/19 at 19:00; Stop 07/03/19 at 19:01; Status DC Sodium Chloride 1,000 ml @ 1,000 mls/hr Q1H IV Last administered on 07/03/19at 19:10; Start 07/03/19 at 18:46; Stop 07/03/19 at 19:45; Status DC Vancomycin HCl 2 gm/Sodium Chloride 500 ml @ 250 mls/hr 1X ONCE IV Last administered on 07/03/19at 19:14; Start 07/03/19 at 19:00; Stop 07/03/19 at 20:59; Status DC Ondansetron HCl (Zofran) 4 mg PRN Q8HRS PRN IV NAUSEA/VOMITING; Start 07/03/19 at 21:30; Stop 07/04/19 at 21:29; Status DC Acetaminophen (Tylenol) 650 mg PRN Q4HRS PRN PO FEVER; Start 07/03/19 at 21:3 0; Stop 07/04/19 at 21:29; Status DC Albuterol/ Ipratropium (Duoneb) 3 ml RTQID NEB Last administered on 07/05/19at 07:56; Start 07/04/19 at 08:00; Stop 07/05/19 at 07:59; Status DC Acetaminophen/ Hydrocodone Bitart (Lortab 7.5/325) 1 tab PRN Q6HRS PRN PO PAIN Last administered on 07/06/19at 04:07; Start 07/04/19 at 00:45 Influenza Virus Vaccine Quadrival (Afluria Quad 2019-20 (3yr Up) Syringe) 0.5 ml ONCE ONCE VAX IM Last administered on 07/05/19at 11:19; Start 07/04/19 at 09:00; Stop 07/04/19 at 09:05; Status DC Info (FLU VACCINE SCREEN per RX) 1 each PRN 1X PRN MC SEE COMMENTS; Start 07/04/19 at 03:30; Status Cancel Amiodarone HCl (Cordarone) 200 mg DAILY PO Last administered on 07/06/19at 09:20; Start 07/04/19 at 09:00 Apixaban (Eliquis) 5 mg BID PO Last administered on 07/06/19at 09:21; Start 07/04/19 at 09:00 Aspirin (Ecotrin) 81 mg DAILY PO Last administered on 07/06/19at 09:20; Start 07/04/19 at 09:00 Atorvastatin Calcium (Lipitor) 40 mg HS PO Last administered on 07/05/19at 20:3 6; Start 07/04/19 at 21:00 Bupropion HCl (Wellbutrin Sr) 150 mg DAILY PO Last administered on 07/06/19at 09:20; Start 07/04/19 at 09:00 Docusate Sodium (Colace) 100 mg PRN BID PRN PO CONSTIPATION Last administered on 07/05/19at 20:42; Start 07/04/19 at 09:00 Fenofibrate (Lofibra) 134 mg DAILY PO Last administered on 07/06/19 09:19; Start 07/04/19 at 09:00 Furosemide (Lasix) 40 mg DAILY PO Last administered on 07/06/19 09:21; Start 07/04/19 at 09:00 Gabapentin (Neurontin) 300 mg TID PO Last administered on 07/06/19 09:20; Start 07/04/19 at 09:00 Metformin HCl (Glucophage) 500 mg BIDWMEALS PO Last administered on 07/06/19 09:21; Start 07/04/19 at 09:00 Metolazone (Zaroxolyn) 5 mg DAILY PO Last administered on 07/06/19 09:19; Start 07/04/19 at 09:00 Metoprolol Tartrate (Lopressor) 25 mg BID PO Last administered on 07/06/19 09:19; Start 07/04/19 at 09:00 Pantoprazole Sodium (Protonix) 40 mg DAILYAC PO Last administered on 07/06/19 09:19; Start 07/04/19 at 09:00 Tizanidine HCl (Zanaflex) 2 mg PRN Q12HRS PRN PO MUSCLE SPASMS Last administered on 07/04/19at 21:09; Start 07/04/19 at 09:15 Diltiazem HCl (Cardizem 24hr Cd) 240 mg DAILY PO Last administered on 07/06/19at 09:20; Start 07/04/19 at 09:00 Vancomycin HCl (Vanco Per Pharmacy) 1 each PRN DAILY PRN MC SEE COMMENTS Last administered on 07/06/19at 00:50; Start 07/04/19 at 09:15 Vancomycin HCl 2 gm/Sodium Chloride 500 ml @ 250 mls/hr 1X ONCE IV Last administered on 07/04/19at 11:20; Start 07/04/19 at 10:00; Stop 07/04/19 at 11:59; Status DC Vancomycin HCl 1.5 gm/Sodium Chloride 500 ml @ 250 mls/hr Q12H IV Last administered on 07/05/19at 11:16; Start 07/04/19 at 23:00; Stop 07/05/19 at 23:47; Status DC Vancomycin HCl (Vancomycin Trough Level) 1 each 1X ONCE MC Last administered on 07/05/19at 22:30; Start 07/05/19 at 22:30; Stop 07/05/19 at 22:31; Status DC Lactobacillus Rhamnosus (Culturelle) 1 cap BID PO Last administered on 07/06/19at 09:20; Start 07/04/19 at 15:00 Vancomycin HCl (Vancomycin Trough Level) 1 each 1X ONCE MC ; Start 07/06/19 at 11:00; Stop 07/06/19 at 11:01; Status DC Active Scripts Active Omeprazole 20 Mg Tablet.dr 1 Tab PO DAILY Metoprolol Tartrate 25 Mg Tablet 1 Tab PO BID Furosemide 40 Mg Tablet 40 Mg PO DAILY 30 Days Metolazone 2.5 Mg Tablet 5 Mg PO DAILY 30 Days Metformin Hcl 500 Mg Tablet 500 Mg PO BIDWMEALS 30 Days Eliquis (Apixaban) 5 Mg Tablet 5 Mg PO BID 30 Days Hydrocodone-Apap 7.5-325 (Hydrocodone Bit/Acetaminophen) 1 Tab Tablet 1 Tab PO PRN Q6HRS PRN 30 Days [Diltiazem Hcl] 240 MG Cap.er.24h 240 Mg PO DAILY Reported Colace (Docusate Sodium) 100 Mg Capsule 100 Mg PO BID PRN Aspir 81 (Aspirin) 81 Mg Tablet.dr 81 Mg PO DAILY Fenofibrate (Fenofibrate,Micronized) 134 Mg Capsule 134 Mg PO DAILY Tizanidine Hcl 2 Mg Tablet 2 Mg PO PRN BID PRN Gabapentin (Gabapentin) 100 Mg Capsule 300 Mg PO TID Bupropion Hcl Sr (Bupropion Hcl) 150 Mg Tablet.er 150 Mg PO DAILY Atorvastatin Calcium 40 Mg Tablet 40 Mg PO HS Amiodarone Hcl 200 Mg Tablet 200 Mg PO DAILY Vitals/I & O Vital Sign - Last 24 Hours 07/05/19 07/05/19 07/05/19 07/05/19 13:35 14:35 15:00 19:56 Temp 98.4 99.4 98.4 99.4 Pulse 55 70 Resp 20 20 B/P (MAP) 137/84 (101) 134/82 (99) Pulse Ox 93 93 94 94 O2 Delivery Room Air Room Air Room Air Room Air 07/05/19 07/05/19 07/05/19 07/06/19 20:05 20:37 23:33 03:53 Temp 98.4 97.9 98.4 97.9 Pulse 70 53 71 Resp 20 20 B/P (MAP) 134/82 121/45 (70) 114/66 (82) Pulse Ox 94 95 O2 Delivery Room Air Room Air Room Air 07/06/19 07/06/19 07/06/19 07/06/19 07:00 08:00 09:19 09:20 Temp 97.8 97.8 Pulse 90 90 90 Resp 18 B/P (MAP) 115/60 (78) 115/60 115/60 Pulse Ox 96 O2 Delivery Room Air 07/06/19 07/06/19 09:20 11:00 Temp 97.4 97.4 Pulse 90 80 Resp 18 B/P (MAP) 115/60 121/55 (77) Pulse Ox 97 Intake and Output 07/05/19 07/05/19 07/06/19 15:00 23:00 07:00 Intake Total 600 ml 360 ml 200 ml Output Total 1475 ml 1025 ml 1200 ml Balance -875 ml -665 ml -1000 ml EMA ROGERS MD Jul 06, 2019 12:46
--- NOTE | 2019-07-06 13:45 | NUR ---
Pharmacy Vancomycin Dosing Note S: Consulted to monitor and dose vancomycin started 07/03/19. O: MALINDA LOPEZ is a 69 year old M with Cellulitis Other Antibiotics: N/A LABS: Last BUN: 23 Last Creatinine: 1.3 Creatinine Clearance: 73 mL/min Last WBC: 13.1 Last Procalcitonin: Tmax (past 24 hours): 98.5 Microbiology: BLOOD CX (07/03): NGTD I/O: 1160/3700 Drug Levels: Last Trough level: 12.1 on 07/05/19 at 1100 Last dose given 07/05/19 at 1115 Vancomycin Dosing: Dosing Weight: Actual Target Trough: 10-20 A: Based on: repeat level P: 1. Begin Vancomycin 1500 mg IV q24h 2. Follow up Trough level to be ordered as needed 3. Pharmacy will continue to monitor, follow and adjust therapy as needed. Ana Rojas RPH, 07/06/19 [id number]
[2019-07-06 15:00] VITALS: BP 140/58
[2019-07-06] MEDS: VANCOMYCIN 1.5 GM in IV NORMAL SALINE 500ML BAG 500 ML IV SCH (15:02)
[2019-07-06 19:40] VITALS: BP 125/58
[2019-07-06] MEDS: ATORVASTATIN CALCIUM 40 MG TABLET. PO SCH (20:17)
[2019-07-06 23:40] VITALS: BP 111/42
[2019-07-07 03:40] VITALS: BP 120/70
[2019-07-07 05:32] LABS: CREATININE 1.4 mg/dL (0.7-1.3); GFR 50.5
[2019-07-07] MEDS: HYDROcodone/APAP 7.5/325MG 1 TAB TABLET PO PRN ×3 (05:55→19:41)
[2019-07-07 07:00] VITALS: BP 152/80
[2019-07-07] MEDS: FUROSEMIDE 40 MG TABLET. PO SCH (09:14)
[2019-07-07] MEDS: buPROPion SR 150 MG TABLET.SA PO SCH (09:14)
[2019-07-07] MEDS: metFORMIN 500 MG TABLET PO SCH ×2 (09:14→17:33)
[2019-07-07] MEDS: ASPIRIN ENTERIC COATED 81 MG TABLET.DR. PO SCH (09:14)
[2019-07-07] MEDS: metOLazone 2.5 MG TABLET PO SCH (09:14)
[2019-07-07] MEDS: PANTOPRAZOLE 40 MG TABLET.DR. PO SCH (09:15)
[2019-07-07] MEDS: FENOFIBRATE,MICRONIZED 134 MG CAPSULE PO SCH (09:15)
[2019-07-07] MEDS: GABAPENTIN 100 MG CAPSULE. PO SCH ×3 (09:15→19:42)
[2019-07-07] MEDS: AMIODARONE HCL 200 MG TABLET. PO SCH (09:16)
[2019-07-07] MEDS: LACTOBACILLUS RHAMNOSUS GG 1 CAPSULE. PO SCH ×2 (09:16→19:41)
[2019-07-07] MEDS: METOPROLOL TART IMMED RELEASE 25 MG TABLET. PO SCH ×2 (09:16→19:42)
[2019-07-07] MEDS: APIXABAN 5 MG TABLET. PO SCH ×2 (09:17→19:42)
[2019-07-07] MEDS: DOCUSATE SODIUM 100 MG CAPSULE. PO PRN (09:25)
[2019-07-07 10:50] VITALS: BP 148/84
--- NOTE | 2019-07-07 12:22 | PDOC ---
PROGRESS NOTES Subjective Subjective Patient without complaint. Objective Objective Vital Signs Date Time Temp Pulse Resp B/P (MAP) Pulse Ox O2 Delivery O2 Flow Rate FiO2 07/07/19 10:50 97.8 64 19 148/84 (105) 95 Room Air 97.8 Intake and Output 07/07/19 07:00 Intake Total 960 ml Output Total 3925 ml Balance -2965 ml Intake Oral 960 ml Output Urine Total 3925 ml Physical Exam Abdomen: Normal bowel sounds, Soft, No tenderness Heart: Other (regular rate with some prematurities) Extremities: Other (chronic edema, Tubigrips and dressing in place) General: Alert, Oriented X3, No acute distress Lungs: Other (BS distant but otherwise CTA) Assessment Assessment Problems Medical Problems: (1) DM2 (diabetes mellitus, type 2) Status: Chronic (2) HTN (hypertension) Status: Chronic Plan Plan of Care 1. Cellulitis and chronic lymphedema L LE - continue Vancomycin, anticipate wound care clinic tx tomorrow. 2. PAF - tele shows occasional paced beats, possible SVT or afib. Rate controlled, continue his usual medications from Cardiology. 3. DM2 - well controlled with Metformin. 4. HTN - controlled, continue present medications. Comment Review of Relevant I have reviewed the following items ashwini (where applicable) has been applied. Labs Laboratory Tests Test 07/05/19 17:01 07/05/19 21:05 07/05/19 22:20 07/06/19 07:10 Glucose (Fingerstick) 107 mg/dL (70-99) 136 mg/dL (70-99) 103 mg/dL (70-99) Vancomycin Level Trough 27.3 mcg/mL (10.0-20.0) Vancomycin Last Dose Date 07/05/19 Vancomycin Last Dose Time 1100 Test 07/06/19 11:00 07/06/19 11:48 07/06/19 17:04 07/06/19 20:38 Vancomycin Level Trough 12.1 mcg/mL (10.0-20.0) Vancomycin Last Dose Date 07/05/19 Vancomycin Last Dose Time 1115 Glucose (Fingerstick) 107 mg/dL (70-99) 122 mg/dL (70-99) 158 mg/dL (70-99) Test 07/07/19 04:00 07/07/19 07:40 07/07/19 11:03 Creatinine 1.4 mg/dL (0.7-1.3) Estimated GFR (Cockcroft-Gault) 50.5 Glucose (Fingerstick) 104 mg/dL (70-99) 117 mg/dL (70-99) Laboratory Tests Test 07/06/19 17:04 07/06/19 20:38 07/07/19 04:00 07/07/19 07:40 Glucose (Fingerstick) 122 mg/dL (70-99) 158 mg/dL (70-99) 104 mg/dL (70-99) Creatinine 1.4 mg/dL (0.7-1.3) Estimated GFR (Cockcroft-Gault) 50.5 Test 07/07/19 11:03 Glucose (Fingerstick) 117 mg/dL (70-99) Microbiology 07/03/19 Blood Culture - Preliminary, Resulted NO GROWTH AFTER 3 DAYS Medications Current Medications Vancomycin HCl (Vanco Per Pharmacy) 1 each 1X ONCE MC Last administered on 07/03/19at 19:00; Start 07/03/19 at 19:00; Stop 07/03/19 at 19:01; Status DC Sodium Chloride 1,000 ml @ 1,000 mls/hr Q1H IV Last administered on 07/03/19at 19:10; Start 07/03/19 at 18:46; Stop 07/03/19 at 19:45; Status DC Vancomycin HCl 2 gm/Sodium Chloride 500 ml @ 250 mls/hr 1X ONCE IV Last administered on 07/03/19at 19:14; Start 07/03/19 at 19:00; Stop 07/03/19 at 20:59; Status DC Ondansetron HCl (Zofran) 4 mg PRN Q8HRS PRN IV NAUSEA/VOMITING; Start 07/03/19 at 21:30; Stop 07/04/19 at 21:29; Status DC Acetaminophen (Tylenol) 650 mg PRN Q4HRS PRN PO FEVER; Start 07/03/19 at 21:30; Stop 07/04/19 at 21:29; Status DC Albuterol/ Ipratropium (Duoneb) 3 ml RTQID NEB Last administered on 07/05/19at 07:56; Start 07/04/19 at 08:00; Stop 07/05/19 at 07:59; Status DC Acetaminophen/ Hydrocodone Bitart (Lortab 7.5/325) 1 tab PRN Q6HRS PRN PO PAIN Last administered on 07/07/19 05:55; Start 07/04/19 at 00:45 Influenza Virus Vaccine Quadrival (Afluria Quad 2019-20 (3yr Up) Syringe) 0.5 ml ONCE ONCE VAX IM Last administered on 07/05/19 11:19; Start 07/04/19 at 09:00; Stop 07/04/19 at 09:05; Status DC Info (FLU VACCINE SCREEN per RX) 1 each PRN 1X PRN MC SEE COMMENTS; Start at 03:30; Status Cancel Amiodarone HCl (Cordarone) 200 mg DAILY PO Last administered on 07/07/19 09:16; Start 07/04/19 at 09:00 Apixaban (Eliquis) 5 mg BID PO Last administered on 07/07/19 09:17; Start 07/04/19 at 09:00 Aspirin (Ecotrin) 81 mg DAILY PO Last administered on 07/07/19 09:14; Start 07/04/19 at 09:00 Atorvastatin Calcium (Lipitor) 40 mg HS PO Last administered on 07/06/19 20:17; Start 07/04/19 at 21:00 Bupropion HCl (Wellbutrin Sr) 150 mg DAILY PO Last administered on 07/07/19 09:14; Start 07/04/19 at 09:00 Docusate Sodium (Colace) 100 mg PRN BID PRN PO CONSTIPATION Last administered on 07/07/19at 09:25; Start 07/04/19 at 09:00 Fenofibrate (Lofibra) 134 mg DAILY PO Last administered on 07/07/19 09:15; Start 07/04/19 at 09:00 Furosemide (Lasix) 40 mg DAILY PO Last administered on 07/07/19 09:14; Start 07/04/19 at 09:00 Gabapentin (Neurontin) 300 mg TID PO Last administered on 07/07/19 09:15; Start 07/04/19 at 09:00 Metformin HCl (Glucophage) 500 mg BIDWMEALS PO Last administered on 07/07/19at 09:14; Start 07/04/19 at 09:00 Metolazone (Zaroxolyn) 5 mg DAILY PO Last administered on 07/07/19 09:14; Start 07/04/19 at 09:00 Metoprolol Tartrate (Lopressor) 25 mg BID PO Last administered on 07/07/19 09:16; Start 07/04/19 at 09:00 Pantoprazole Sodium (Protonix) 40 mg DAILYAC PO Last administered on 07/07/19 09:15; Start 07/04/19 at 09:00 Tizanidine HCl (Zanaflex) 2 mg PRN Q12HRS PRN PO MUSCLE SPASMS Last administered on 07/04/19at 21:09; Start 07/04/19 at 09:15 Diltiazem HCl (Cardizem 24hr Cd) 240 mg DAILY PO Last administered on 07/07/19 09:15; Start 07/04/19 at 09:00 Vancomycin HCl (Vanco Per Pharmacy) 1 each PRN DAILY PRN MC SEE COMMENTS Last administered on 07/06/19at 13:44; Start 07/04/19 at 09:15 Vancomycin HCl 2 gm/Sodium Chloride 500 ml @ 250 mls/hr 1X ONCE IV Last administered on 07/04/19 11:20; Start 07/04/19 at 10:00; Stop 07/04/19 at 11:59; Status DC Vancomycin HCl 1.5 gm/Sodium Chloride 500 ml @ 250 mls/hr Q12H IV Last admin istered on 07/05/19 11:16; Start 07/04/19 at 23:00; Stop 07/05/19 at 23:47; Status DC Vancomycin HCl (Vancomycin Trough Level) 1 each 1X ONCE MC Last administered on 07/05/19at 22:30; Start 07/05/19 at 22:30; Stop 07/05/19 at 22:31; Status DC Lactobacillus Rhamnosus (Culturelle) 1 cap BID PO Last administered on 07/07/19at 09:16; Start 07/04/19 at 15:00 Vancomycin HCl (Vancomycin Trough Level) 1 each 1X ONCE MC Last administered on 07/06/19at 11:00; Start 07/06/19 at 11:00; Stop 07/06/19 at 11:01; Status DC Vancomycin HCl 1.5 gm/Sodium Chloride 500 ml @ 250 mls/hr Q24H IV Last administered on 07/06/19at 15:02; Start 07/06/19 at 14:00 Active Scripts Active Omeprazole 20 Mg Tablet.dr 1 Tab PO DAILY Metoprolol Tartrate 25 Mg Tablet 1 Tab PO BID Furosemide 40 Mg Tablet 40 Mg PO DAILY 30 Days Metolazone 2.5 Mg Tablet 5 Mg PO DAILY 30 Days Metformin Hcl 500 Mg Tablet 500 Mg PO BIDWMEALS 30 Days Eliquis (Apixaban) 5 Mg Tablet 5 Mg PO BID 30 Days Hydrocodone-Apap 7.5-325 (Hydrocodone Bit/Acetaminophen) 1 Tab Tablet 1 Tab PO PRN Q6HRS PRN 30 Days [Diltiazem Hcl] 240 MG Cap.er.24h 240 Mg PO DAILY Reported Colace (Docusate Sodium) 100 Mg Capsule 100 Mg PO BID PRN Aspir 81 (Aspirin) 81 Mg Tablet.dr 81 Mg PO DAILY Fenofibrate (Fenofibrate,Micronized) 134 Mg Capsule 134 Mg PO DAILY Tizanidine Hcl 2 Mg Tablet 2 Mg PO PRN BID PRN Gabapentin (Gabapentin) 100 Mg Capsule 300 Mg PO TID Bupropion Hcl Sr (Bupropion Hcl) 150 Mg Tablet.er 150 Mg PO DAILY Atorvastatin Calcium 40 Mg Tablet 40 Mg PO HS Amiodarone Hcl 200 Mg Tablet 200 Mg PO DAILY Vitals/I & O Vital Sign - Last 24 Hours 07/06/19 07/06/19 07/06/19 07/06/19 13:36 14:36 15:00 19:40 Temp 98.1 98.3 98.1 98.3 Pulse 82 63 Resp 17 18 18 20 B/P (MAP) 140/58 (85) 125/58 (80) Pulse Ox 99 93 O2 Delivery Room Air Room Air Room Air 07/06/19 07/06/19 07/06/19 07/06/19 20:00 20:16 20:19 21:16 Pulse 66 Resp 19 B/P (MAP) 125/58 Pulse Ox 99 99 O2 Delivery Room Air Room Air Room Air 07/06/19 07/07/19 07/07/19 07/07/19 23:40 03:40 05:55 06:55 Temp 98.1 98.1 98.1 98.1 Pulse 58 60 Resp 20 20 19 17 B/P (MAP) 111/42 (65) 120/70 (87) Pulse Ox 94 95 95 O2 Delivery Room Air Room Air Room Air Room Air 07/07/19 07/07/19 07/07/19 07/07/19 07:00 09:15 09:16 09:16 Temp 97.8 97.8 Pulse 61 61 61 61 Resp 19 B/P (MAP) 152/80 (104) 152/80 152/80 152/80 Pulse Ox 93 O2 Delivery Room Air 07/07/19 10:50 Temp 97.8 97.8 Pulse 64 Resp 19 B/P (MAP) 148/84 (105) Pulse Ox 95 O2 Delivery Room Air Intake and Output 07/06/19 07/06/19 07/07/19 15:00 23:00 07:00 Intake Total 360 ml 600 ml Output Total 1600 ml 1025 ml 1300 ml Balance -1600 ml -665 ml -700 ml EMA ROGERS MD Jul 07, 2019 12:22
[2019-07-07] MEDS: VANCOMYCIN PER PHARMACY MC PRN (13:57)
[2019-07-07] MEDS: VANCOMYCIN 1.5 GM in IV NORMAL SALINE 500ML BAG 500 ML IV SCH (14:23)
[2019-07-07 15:00] VITALS: BP 142/80
--- NOTE | 2019-07-07 18:49 | NUR ---
Pt refused to let me take pictures of his legs. Reports they are wrapped and wound care would see them tomorrow. I asked again throughout the day and he continued to decline. I did discuss this with Dr Schafer when she was here.
[2019-07-07 19:40] VITALS: BP 134/83
[2019-07-07] MEDS: tiZANidine 4 MG TABLET. PO PRN (19:41)
[2019-07-07] MEDS: ATORVASTATIN CALCIUM 40 MG TABLET. PO SCH (19:42)
[2019-07-07 23:40] VITALS: BP 124/58
[2019-07-08 03:40] VITALS: BP 129/80
[2019-07-08] MEDS: HYDROcodone/APAP 7.5/325MG 1 TAB TABLET PO PRN ×3 (05:20→20:00)
[2019-07-08 05:31] LABS: HEMATOCRIT 34.5 % (39.0-53.0); HEMOGLOBIN 11.3 g/dL (13.0-17.5); RED BLOOD COUNT 4.17 x10^6/uL (4.30-5.70); RED CELL DISTRIBUTION WIDTH 16.6 % (11.5-14.5); WHITE BLOOD COUNT 12.4 x10^3/uL (4.0-11.0)
[2019-07-08 05:53] LABS: CALCIUM 9.8 mg/dL (8.5-10.1); CREATININE 1.4 mg/dL (0.7-1.3); GFR 50.5; POTASSIUM 3.3 mmol/L (3.5-5.1)
--- NOTE | 2019-07-08 06:30 | NUR ---
Patient has pacemaker, history of SSS, cardioversion,afib. front desk monitor occasionally reading a flutter, pac's and bradycardia. Left message for Dr. Schafer. Cardiology consult?
[2019-07-08] MEDS ORDERED: MAGNESIUM HYDROXIDE 2,400 MG/30 ML ORAL.SUSP. PO ONE (07:30)
[2019-07-08] MEDS ORDERED: MAGNESIUM CITRATE 296 ML SOLUTION. PO ONE (07:30)
--- NOTE | 2019-07-08 07:30 | PDOC ---
PROGRESS NOTES Subjective Subjective Patient feeling better. Patient has not been walking. Patient has not had BM in 4 days Objective Objective Vital Signs Date Time Temp Pulse Resp B/P (MAP) Pulse Ox O2 Delivery O2 Flow Rate FiO2 07/08/19 06:20 94 Room Air 07/08/19 03:40 98.0 69 20 129/80 (96) 98.0 Intake and Output 07/08/19 07:00 Intake Total 3200 ml Output Total 1800 ml Balance 1400 ml Intake Oral 3200 ml Output Urine Total 1800 ml Physical Exam Abdomen: Normal bowel sounds Heart: Other (Irregular) Extremities: Other (Wrapped 3+ edema) General: Alert Lungs: Clear to auscultation Assessment Assessment Problems Medical Problems: (1) DM2 (diabetes mellitus, type 2) Status: Chronic (2) HTN (hypertension) Status: Chronic 1. Cellulitis and chronic lymphedema L LE 2. PAF 3. DM2 4. HTN 5, Morbid Obesity 6. Mobility Deficit 7. Constipation Plan Plan of Care PT/OT eval and treat Wound care ongoing Iv antibx Add cathartics Comment Review of Relevant I have reviewed the following items ashwini (where applicable) has been applied. Labs Laboratory Tests Test 07/06/19 11:00 07/06/19 11:48 07/06/19 17:04 07/06/19 20:38 Vancomycin Level Trough 12.1 mcg/mL (10.0-20.0) Vancomycin Last Dose Date 07/05/19 Vancomycin Last Dose Time 1115 Glucose (Fingerstick) 107 mg/dL (70-99) 122 mg/dL (70-99) 158 mg/dL (70-99) Test 07/07/19 04:00 07/07/19 07:40 07/07/19 11:03 07/07/19 16:41 Creatinine 1.4 mg/dL (0.7-1.3) Estimated GFR (Cockcroft-Gault) 50.5 Glucose (Fingerstick) 104 mg/dL (70-99) 117 mg/dL (70-99) 132 mg/dL (70-99) Test 07/07/19 20:58 07/08/19 05:02 Glucose (Fingerstick) 139 mg/dL (70-99) White Blood Count 12.4 x10^3/uL (4.0-11.0) Red Blood Count 4.17 x10^6/uL (4.30-5.70) Hemoglobin 11.3 g/dL (13.0-17.5) Hematocrit 34.5 % (39.0-53.0) Mean Corpuscular Volume 83 fL (79-100) Mean Corpuscular Hemoglobin 27 pg (25-35) Mean Corpuscular Hemoglobin Concent 33 g/dL (31-37) Red Cell Distribution Width 16.6 % (11.5-14.5) Platelet Count 502 x10^3/uL (140-400) Sodium Level 137 mmol/L (136-145) Potassium Level 3.3 mmol/L (3.5-5.1) Chloride Level 97 mmol/L (98-107) Carbon Dioxide Level 31 mmol/L (21-32) Anion Gap 9 (6-14) Blood Urea Nitrogen 45 mg/dL (8-26) Creatinine 1.4 mg/dL (0.7-1.3) Estimated GFR (Cockcroft-Gault) 50.5 Glucose Level 115 mg/dL (70-99) Calcium Level 9.8 mg/dL (8.5-10.1) Laboratory Tests Test 07/07/19 07:40 07/07/19 11:03 07/07/19 16:41 07/07/19 20:58 Glucose (Fingerstick) 104 mg/dL (70-99) 117 mg/dL (70-99) 132 mg/dL (70-99) 139 mg/dL (70-99) Test 07/08/19 05:02 White Blood Count 12.4 x10^3/uL (4.0-11.0) Red Blood Count 4.17 x10^6/uL (4.30-5.70) Hemoglobin 11.3 g/dL (13.0-17.5) Hematocrit 34.5 % (39.0-53.0) Mean Corpuscular Volume 83 fL (79-100) Mean Corpuscular Hemoglobin 27 pg (25-35) Mean Corpuscular Hemoglobin Concent 33 g/dL (31-37) Red Cell Distribution Width 16.6 % (11.5-14.5) Platelet Count 502 x10^3/uL (140-400) Sodium Level 137 mmol/L (136-145) Potassium Level 3.3 mmol/L (3.5-5.1) Chloride Level 97 mmol/L (98-107) Carbon Dioxide Level 31 mmol/L (21-32) Anion Gap 9 (6-14) Blood Urea Nitrogen 45 mg/dL (8-26) Creatinine 1.4 mg/dL (0.7-1.3) Estimated GFR (Cockcroft-Gault) 50.5 Glucose Level 115 mg/dL (70-99) Calcium Level 9.8 mg/dL (8.5-10.1) Microbiology 07/03/19 Blood Culture - Preliminary, Resulted NO GROWTH AFTER 4 DAYS Medications Current Medications Vancomycin HCl (Vanco Per Pharmacy) 1 each 1X ONCE MC Last administered on 07/03/19at 19:00; Start 07/03/19 at 19:00; Stop 07/03/19 at 19:01; Status DC Sodium Chloride 1,000 ml @ 1,000 mls/hr Q1H IV Last administered on 07/03/19at 19:10; Start 07/03/19 at 18:46; Stop 07/03/19 at 19:45; Status DC Vancomycin HCl 2 gm/Sodium Chloride 500 ml @ 250 mls/hr 1X ONCE IV Last administered on 07/03/19at 19:14; Start 07/03/19 at 19:00; Stop 07/03/19 at 20:59; Status DC Ondansetron HCl (Zofran) 4 mg PRN Q8HRS PRN IV NAUSEA/VOMITING; Start 07/03/19 at 21:30; Stop 07/04/19 at 21:29; Status DC Acetaminophen (Tylenol) 650 mg PRN Q4HRS PRN PO FEVER; Start 07/03/19 at 21:30; Stop 07/04/19 at 21:29; Status DC Albuterol/ Ipratropium (Duoneb) 3 ml RTQID NEB Last administered on 07/05/19at 07:56; Start 07/04/19 at 08:00; Stop 07/05/19 at 07:59; Status DC Acetaminophen/ Hydrocodone Bitart (Lortab 7.5/325) 1 tab PRN Q6HRS PRN PO PAIN Last administered on 07/08/19at 05:20; Start 07/04/19 at 00:45 Influenza Virus Vaccine Quadrival (Afluria Quad 2019-20 (3yr Up) Syringe) 0.5 ml ONCE ONCE VAX IM Last administered on 07/05/19 11:19; Start 07/04/19 at 09:00; Stop 07/04/19 at 09:05; Status DC Info (FLU VACCINE SCREEN per RX) 1 each PRN 1X PRN MC SEE COMMENTS; Start 07/04/19 at 03:30; Status Cancel Amiodarone HCl (Cordarone) 200 mg DAILY PO Last administered on 07/07/19 09:16; Start 07/04/19 at 09:00 Apixaban (Eliquis) 5 mg BID PO Last administered on 07/07/19 19:42; Start 07/04/19 at 09:00 Aspirin (Ecotrin) 81 mg DAILY PO Last administered on 07/07/19 09:14; Start 07/04/19 at 09:00 Atorvastatin Calcium (Lipitor) 40 mg HS PO Last administered on 07/07/19 19:42; Start 07/04/19 at 21:00 Bupropion HCl (Wellbutrin Sr) 150 mg DAILY PO Last administered on 07/07/19 09:14; Start 07/04/19 at 09:00 Docusate Sodium (Colace) 100 mg PRN BID PRN PO CONSTIPATION Last administered on 07/07/19 09:25; Start 07/04/19 at 09:00 Fenofibrate (Lofibra) 134 mg DAILY PO Last administered on 07/07/19 09:15; Start 07/04/19 at 09:00 Furosemide (Lasix) 40 mg DAILY PO Last administered on 07/07/19 09:14; Start 07/04/19 at 09:00 Gabapentin (Neurontin) 300 mg TID PO Last administered on 07/07/19 19:42; Start 07/04/19 at 09:00 Metformin HCl (Glucophage) 500 mg BIDWMEALS PO Last administered on 07/07/19 17:33; Start 07/04/19 at 09:00 Metolazone (Zaroxolyn) 5 mg DAILY PO Last administered on 07/07/19 09:14; Start 07/04/19 at 09:00 Metoprolol Tartrate (Lopressor) 25 mg BID PO Last administered on 07/07/19 19:42; Start 07/04/19 at 09:00 Pantoprazole Sodium (Protonix) 40 mg DAILYAC PO Last administered on 07/07/19 09:15; Start 07/04/19 at 09:00 Tizanidine HCl (Zanaflex) 2 mg PRN Q12HRS PRN PO MUSCLE SPASMS Last administered on 07/07/19 19:41; Start 07/04/19 at 09:15 Diltiazem HCl (Cardizem 24hr Cd) 240 mg DAILY PO Last administered on 07/07/19 09:15; Start 07/04/19 at 09:00 Vancomycin HCl (Vanco Per Pharmacy) 1 each PRN DAILY PRN MC SEE COMMENTS Last administered on 07/07/19 13:57; Start 07/04/19 at 09:15 Vancomycin HCl 2 gm/Sodium Chloride 500 ml @ 250 mls/hr 1X ONCE IV Last administered on 07/04/19 11:20; Start 07/04/19 at 10:00; Stop 07/04/19 at 11:59; Status DC Vancomycin HCl 1.5 gm/Sodium Chloride 500 ml @ 250 mls/hr Q12H IV Last administered on 07/05/19 11:16; Start 07/04/19 at 23:00; Stop 07/05/19 at 23:47; Status DC Vancomycin HCl (Vancomycin Trough Level) 1 each 1X ONCE MC Last administered on 07/05/19at 22:30; Start 07/05/19 at 22:30; Stop 07/05/19 at 22:31; Status DC Lactobacillus Rhamnosus (Culturelle) 1 cap BID PO Last administered on 07/07/19at 19:41; Start 07/04/19 at 15:00 Vancomycin HCl (Vancomycin Trough Level) 1 each 1X ONCE MC Last administered on 07/06/19at 11:00; Start 07/06/19 at 11:00; Stop 07/06/19 at 11:01; Status DC Vancomycin HCl 1.5 gm/Sodium Chloride 500 ml @ 250 mls/hr Q24H IV Last administered on 07/07/19at 14:23; Start 07/06/19 at 14:00 Active Scripts Active Omeprazole 20 Mg Tablet.dr 1 Tab PO DAILY Metoprolol Tartrate 25 Mg Tablet 1 Tab PO BID Furosemide 40 Mg Tablet 40 Mg PO DAILY 30 Days Metolazone 2.5 Mg Tablet 5 Mg PO DAILY 30 Days Metformin Hcl 500 Mg Tablet 500 Mg PO BIDWMEALS 30 Days Eliquis (Apixaban) 5 Mg Tablet 5 Mg PO BID 30 Days Hydrocodone-Apap 7.5-325 (Hydrocodone Bit/Acetaminophen) 1 Tab Tablet 1 Tab PO PRN Q6HRS PRN 30 Days [Diltiazem Hcl] 240 MG Cap.er.24h 240 Mg PO DAILY Reported Colace (Docusate Sodium) 100 Mg Capsule 100 Mg PO BID PRN Aspir 81 (Aspirin) 81 Mg Tablet.dr 81 Mg PO DAILY Fenofibrate (Fenofibrate,Micronized) 134 Mg Capsule 134 Mg PO DAILY Tizanidine Hcl 2 Mg Tablet 2 Mg PO PRN BID PRN Gabapentin (Gabapentin) 100 Mg Capsule 300 Mg PO TID Bupropion Hcl Sr (Bupropion Hcl) 150 Mg Tablet.er 150 Mg PO DAILY Atorvastatin Calcium 40 Mg Tablet 40 Mg PO HS Amiodarone Hcl 200 Mg Tablet 200 Mg PO DAILY Vitals/I & O Vital Sign - Last 24 Hours 07/07/19 07/07/19 07/07/19 07/07/19 08:00 09:15 09:16 09:16 Pulse 61 61 61 B/P (MAP) 152/80 152/80 152/80 O2 Delivery Room Air 07/07/19 07/07/19 07/07/19 07/07/19 10:50 13:19 14:24 15:00 Temp 97.8 97.9 97.8 97.9 Pulse 64 64 Resp 19 17 18 19 B/P (MAP) 148/84 (105) 142/80 (100) Pulse Ox 95 95 O2 Delivery Room Air Room Air Room Air Room Air 07/07/19 07/07/19 07/07/19 07/07/19 19:40 19:41 19:42 20:00 Temp 97.8 97.8 Pulse 61 64 Resp 20 B/P (MAP) 134/83 (100) 142/80 Pulse Ox 91 95 O2 Delivery Room Air Room Air Room Air 07/07/19 07/07/19 07/08/19 07/08/19 20:41 23:40 03:40 05:20 Temp 97.9 98.0 97.9 98.0 Pulse 59 69 Resp 20 20 B/P (MAP) 124/58 (80) 129/80 (96) Pulse Ox 95 91 94 94 O2 Delivery Room Air Room Air Room Air 07/08/19 06:20 Pulse Ox 94 O2 Delivery Room Air Intake and Output 07/07/19 07/07/19 07/08/19 15:00 23:00 07:00 Intake Total 650 ml 700 ml 1850 ml Output Total 1200 ml 400 ml 200 ml Balance -550 ml 300 ml 1650 ml MARY DE LA ROSA MD Jul 08, 2019 07:30
[2019-07-08 07:40] VITALS: BP 127/73
[2019-07-08] MEDS: POLYETHYLENE GLYCOL 3350 17 GM PACKET. PO SCH (08:43)
[2019-07-08] MEDS: GABAPENTIN 100 MG CAPSULE. PO SCH ×3 (08:43→20:00)
[2019-07-08] MEDS: APIXABAN 5 MG TABLET. PO SCH ×2 (08:44→20:01)
[2019-07-08] MEDS: metOLazone 2.5 MG TABLET PO SCH (08:44)
[2019-07-08] MEDS: FENOFIBRATE,MICRONIZED 134 MG CAPSULE PO SCH (08:44)
[2019-07-08] MEDS: LACTOBACILLUS RHAMNOSUS GG 1 CAPSULE. PO SCH ×2 (08:45→20:01)
[2019-07-08] MEDS: ASPIRIN ENTERIC COATED 81 MG TABLET.DR. PO SCH (08:45)
[2019-07-08] MEDS: PANTOPRAZOLE 40 MG TABLET.DR. PO SCH (08:45)
[2019-07-08] MEDS: FUROSEMIDE 40 MG TABLET. PO SCH (08:45)
[2019-07-08] MEDS: metFORMIN 500 MG TABLET PO SCH ×2 (08:45→17:59)
[2019-07-08] MEDS: METOPROLOL TART IMMED RELEASE 25 MG TABLET. PO SCH ×2 (08:45→19:59)
[2019-07-08] MEDS: AMIODARONE HCL 200 MG TABLET. PO SCH (08:46)
[2019-07-08] MEDS: buPROPion SR 150 MG TABLET.SA PO SCH (10:10)
[2019-07-08 11:47] VITALS: BP 125/45
[2019-07-08 14:46] VITALS: BP 140/56
[2019-07-08] MEDS: VANCOMYCIN PER PHARMACY MC PRN (15:14)
[2019-07-08] MEDS: VANCOMYCIN 1.5 GM in IV NORMAL SALINE 500ML BAG 500 ML IV SCH (15:15)
--- NOTE | 2019-07-08 15:32 | NUR ---
wound care patient seen per wound care follow up. see wound assessment. patient has a stasis ulcer to the left lower leg, the leg is red and swollen, the wound was cleaned, measured and pictured and redressed with recommendations of absorbant pad with kerlix and tape, change daily and prn if saturated. Medigrip G applied to bilateral lower legs. educated patient about elevating legs. wound care will continue to f/u.
[2019-07-08] MEDS: tiZANidine 4 MG TABLET. PO PRN (18:02)
[2019-07-08 19:56] VITALS: BP 85/64
[2019-07-08] MEDS: ATORVASTATIN CALCIUM 40 MG TABLET. PO SCH (20:01)
[2019-07-08 23:03] VITALS: BP 136/45
[2019-07-09] MEDS: HYDROcodone/APAP 7.5/325MG 1 TAB TABLET PO PRN ×3 (02:32→15:22)
[2019-07-09 03:41] VITALS: BP 140/78
[2019-07-09 07:15] VITALS: BP 120/80
[2019-07-09] MEDS: FENOFIBRATE,MICRONIZED 134 MG CAPSULE PO SCH (08:47)
[2019-07-09] MEDS: buPROPion SR 150 MG TABLET.SA PO SCH (08:47)
[2019-07-09] MEDS: ASPIRIN ENTERIC COATED 81 MG TABLET.DR. PO SCH (08:48)
[2019-07-09] MEDS: APIXABAN 5 MG TABLET. PO SCH (08:48)
[2019-07-09] MEDS: metFORMIN 500 MG TABLET PO SCH (08:48)
[2019-07-09] MEDS: METOPROLOL TART IMMED RELEASE 25 MG TABLET. PO SCH (08:48)
[2019-07-09] MEDS: GABAPENTIN 100 MG CAPSULE. PO SCH ×2 (08:49→14:17)
[2019-07-09] MEDS: LACTOBACILLUS RHAMNOSUS GG 1 CAPSULE. PO SCH (08:49)
[2019-07-09] MEDS: AMIODARONE HCL 200 MG TABLET. PO SCH (08:49)
[2019-07-09] MEDS: POLYETHYLENE GLYCOL 3350 17 GM PACKET. PO SCH (08:49)
[2019-07-09] MEDS: FUROSEMIDE 40 MG TABLET. PO SCH (08:49)
[2019-07-09] MEDS: metOLazone 2.5 MG TABLET PO SCH (08:49)
[2019-07-09] MEDS: PANTOPRAZOLE 40 MG TABLET.DR. PO SCH (08:49)
[2019-07-09] MEDS ORDERED: POLY17PO28 PO (09:20)
[2019-07-09] MEDS ORDERED: DOXY100C2 PO (09:20)
--- NOTE | 2019-07-09 09:22 | SNU/HH DC ---
DISCHARGE ORDERS DISCHARGE INFORMATION: DISCHARGE DATE: Jul 09, 2019 FINAL DIAGNOSIS Problems Medical Problems: (1) DM2 (diabetes mellitus, type 2) Status: Chronic (2) HTN (hypertension) Status: Chronic CONDITION ON DISCHARGE: Stable CODE STATUS: Code Status: Full SENIOR LIVING: SNF STAY <30 DAYS: Yes POST DISCHARGE ORDERS: ACTIVITY ORDERS: No restrictions WEIGHT BEARING STATUS: No restrictions DIET AFTER DISCHARGE: Cardiac WOUND/INCISION CARE: Change dressing, Other, see below CHECKS AFTER DISCHARGE: CHECKS AFTER DISCHARGE: Weigh Yourself Daily TREATMENT/EQUIPMENT ORDERS: ADAPTIVE EQUIPMENT NEEDED: Cane RESPIRATORY EQUIPMENT NEEDED: Oxygen Physical Therapy For: Evalulation/Treatment Occupational Therapy For: Evaluation/Treatment DISCHARGE MEDICATIONS: Home Meds Active Scripts Doxycycline Hyclate (DOXYCYCLINE HYCLATE) 100 Mg Capsule, 1 CAP PO BID for Cellulitis, #20 CAP Prov:MARY DE LA ROSA MD 07/09/19 Polyethylene Glycol 3350 (POLYETHYLENE GLYCOL 3350) 17 Gm Powd.pack, 17 GM PO DAILY for Consti[pation for 30 Days, #30 PKT Prov:MARY DE LA ROSA MD 07/09/19 Omeprazole (OMEPRAZOLE) 20 Mg Tablet.dr, 1 TAB PO DAILY for gerd, #90 TAB 1 Refill Prov:EMA ROGERS MD 07/04/19 Metoprolol Tartrate (METOPROLOL TARTRATE) 25 Mg Tablet, 1 TAB PO BID for htn, #180 TAB 1 Refill Prov:EMA ROGERS MD 07/04/19 Furosemide (FUROSEMIDE) 40 Mg Tablet, 40 MG PO DAILY for CHF for 30 Days, #60 TAB Prov:EMA ROGERS MD 07/04/19 Metolazone (METOLAZONE) 2.5 Mg Tablet, 5 MG PO DAILY for chf for 30 Days, #60 T AB Prov:TI VILLAGOMEZ MD 04/19/19 Metformin Hcl (METFORMIN HCL) 500 Mg Tablet, 500 MG PO BIDWMEALS for ANTI- DIABETIC for 30 Days, #60 TAB 0 Refills Prov:MARY DE LA ROSA MD 12/31/18 Apixaban (ELIQUIS) 5 Mg Tablet, 5 MG PO BID for afib for 30 Days, #60 TAB Prov:MARY DE LA ROSA MD 12/31/18 Hydrocodone Bit/Acetaminophen (HYDROCODONE-APAP 7.5-325 ) 1 Tab Tablet, 1 TAB PO PRN Q6HRS PRN for PAIN for 30 Days, #60 TAB Prov:MARY DE LA ROSA MD 12/31/18 [Diltiazem Hcl] 240 MG CAP.ER.24H No Conflict Check, 240 MG PO DAILY, #30 TAB 6 Refills Prov:JAIMIE GILMAN MD 04/14/15 Reported Medications Docusate Sodium (COLACE) 100 Mg Capsule, 100 MG PO BID PRN for CONSTIPATION, CAP 04/13/19 Aspirin (ASPIR 81) 81 Mg Tablet.dr, 81 MG PO DAILY, TAB 04/13/15 Fenofibrate,Micronized (FENOFIBRATE) 134 Mg Capsule, 134 MG PO DAILY, CAP 04/13/15 Tizanidine Hcl (TIZANIDINE HCL) 2 Mg Tablet, 2 MG PO PRN BID PRN for MUSCLE SPASMS 02/17/14 Gabapentin (GABAPENTIN ) 100 Mg Capsule, 300 MG PO TID 02/17/14 Bupropion Hcl (BUPROPION HCL SR) 150 Mg Tablet.er, 150 MG PO DAILY 02/17/14 Atorvastatin Calcium (ATORVASTATIN CALCIUM) 40 Mg Tablet, 40 MG PO HS, #30 TAB 0 Refills 02/17/14 Amiodarone Hcl (AMIODARONE HCL) 200 Mg Tablet, 200 MG PO DAILY, #30 02/09/14 Discontinued Reported Medications Metoprolol Succinate (METOPROLOL SUCCINATE ( XL )) 25 Mg Tab.er.24h, 50 MG PO DAILY for FOR HYPERTENSION, #30 TAB 0 Refills 12/11/15 Ergocalciferol (Vitamin D2) (VITAMIN D2) 50,000 Unit Capsule, 52347 UNIT PO WEEKLY 02/17/14 MARY DE LA ROSA MD Jul 09, 2019 09:22
[2019-07-09 11:00] VITALS: BP 160/120
--- NOTE | 2019-07-09 12:24 | NUR ---
SW consulted for SNU eval, transfer. Spoke with pt at bedside and agreeable with [facility]. Referral faxed to [facility]. Pt acceptance and admission pending. Discussed with [facility], pt is BPCI pt and is ready to dc today. Will continue to follow.
[2019-07-09] MEDS: VANCOMYCIN 1.5 GM in IV NORMAL SALINE 500ML BAG 500 ML IV SCH (14:17)
[2019-07-09] MEDS: VANCOMYCIN PER PHARMACY MC PRN (14:50)
[2019-07-09 15:30] VITALS: BP 144/79
--- NOTE | 2019-07-09 16:03 | NUR ---
HILDA following pt. Pt has been accepted at [facility]. HILDA phoned and faxed orders to [facility]. Pt will transport via [facility] between [id number]. Pt reported he will notify his family himself and agreeable with dc plan. Discussed with RN.
--- NOTE | 2019-07-09 17:18 | NUR ---
Discharge Note: MALINDA LOPEZ [address] Discharge instructions and discharge home medications reviewed [place] at [facility] and a copy given. All questions have been answered and understanding verbalized. The following instructions and handouts were given: transfer of care Discontinued lines and drains: 22 gauge left hand, tip intact. patient tolerated well. Patient discharged to [facility] via transport.
--- NOTE | 2019-07-11 01:07 | DS ---
DATE OF DISCHARGE: 07/09/2019 ADMITTING DIAGNOSIS: Lower extremity cellulitis. SECONDARY DIAGNOSES: 1. Chronic lymphedema. 2. Morbid obesity. 3. Hypertension. 4. Type 2 diabetes. 5. Paroxysmal atrial fibrillation. 6. Diastolic congestive heart failure. 7. Coronary artery disease. 8. Nocturnal hypoxia. 9. Osteoarthritis. HISTORY OF PRESENT ILLNESS AND HOSPITAL COURSE: This patient is a 69-year-old male who came in with inability to care for himself due to leg swelling and pain. He was found to have cellulitis of lower extremities with massive lymphedema. He was treated with compression and IV antibiotics. The patient also had an [id number] renal failure due to aggressive diuresis and mild protein malnutrition. The patient's infection came under control and he was switched to p.o. antibiotics, but he is still unable to care for himself. Therefore plans to discharge to assisted were made, after PT and OT recommendations for assisted unit care were evaluated. DISCHARGE MEDICATIONS: He was discharged on doxycycline 100 mg p.o. b.i.d., MiraLax 17 grams in fluid daily for constipation, amiodarone 200 mg daily, Eliquis 5 mg p.o. b.i.d., aspirin 81 mg daily, atorvastatin 40 mg daily, Wellbutrin 150 mg daily, diltiazem 240 mg daily extended release, Colace 100 mg b.i.d., fenofibrate 134 mg daily, Lasix 40 mg daily, gabapentin 300 mg t.i.d., hydrocodone 7.5 one q.6 hours p.r.n., metformin 500 mg b.i.d., metolazone 5 mg daily, metoprolol 25 mg b.i.d., omeprazole 20 mg daily, and tizanidine 2 mg b.i.d. p.r.n. He will be followed at assisted unit for continued care. MARY DE LA ROSA MD DR: PIYUSH/vinayak JOB#: [id number] / [id number]
== END 2019-07-09 16:00 | DRG 872 ==
LOC: ER 18:27 → 6 SOUTH 21:27
PROVIDERS: ADMIT Family Medicine; ATTEND Family Medicine
DX: A41.9 Sepsis, unspecified organism (principal); L03.116 Cellulitis of left lower limb; Z68.43 Body mass index [BMI] 50.0-59.9, adult; N17.9 Acute kidney failure, unspecified; E44.1 Mild protein-calorie malnutrition; I13.0 Hypertensive heart and chronic kidney disease with heart failure and stage 1 through stage 4 chronic kidney disease, or unspecified chronic kidney disease; I50.32 Chronic diastolic (congestive) heart failure; L03.115 Cellulitis of right lower limb; I25.10 Atherosclerotic heart disease of native coronary artery without angina pectoris; E78.00 Pure hypercholesterolemia, unspecified; E66.01 Morbid (severe) obesity due to excess calories; I48.0 Paroxysmal atrial fibrillation; M19.90 Unspecified osteoarthritis, unspecified site; R09.02 Hypoxemia; I89.0 Lymphedema, not elsewhere classified; K59.00 Constipation, unspecified; N18.9 Chronic kidney disease, unspecified; E11.22 Type 2 diabetes mellitus with diabetic chronic kidney disease; E78.5 Hyperlipidemia, unspecified; Z95.0 Presence of cardiac pacemaker; Z95.5 Presence of coronary angioplasty implant and graft; I25.2 Old myocardial infarction; Z79.01 Long term (current) use of anticoagulants
CPT/HCPCS: 36415; 80048; 80053; 80202; 81001; 82565; 82962; 83605; 85025; 85027; 86140; 87040; 90471; 90686; 94640; 94760; 96365; 96366; J3370; J7030; J7040; J7620; 97140; 97535; 99285-25; G0378

== ENCOUNTER → 2020-03-13 | Outpatient (CLI) | payer MEDICARE ==
[2020-01-07 15:02] VITALS: BP 143/66
[~2020-03-13] MED LIST changes: +AMOX1TAB61 PO; +DOXY100C2 PO; -EDOX60TA PO; +EDOX60TA2 PO; +FURO-69 PO; +METO25TA4 PO; +NYST60PO TP; +OMEP20TA8 PO; +POLY17PO28 PO; +POTA20TA4 PO; -TIZA2TAB2 PO; +TIZA2TAB4 PO
--- NOTE | 2020-03-13 11:27 | CARD ---
MR#: [id number] Date of Study: 03/13/2020 Ordering Physician: JAIMIE GILMAN, Referring Physician: JAIMIE GILMAN Tech: Do Samaniego [facility] APPROVED REPORT EXAM: Two-dimensional and M-mode echocardiogram with Doppler and color Doppler. Other Information Quality : Technically LimitedHR: 71bpm Rhythm : NSRTechnically limited study due to body habitus. INDICATION Dyspnea CAD RISK FACTORS Hypertension Obesity Hyperlipidemia Diabetes 2D DIMENSIONS RVDd3.4 (2.9-3.5cm)Left Atrium(2D)6.3 (1.6-4.0cm) IVSd1.3 (0.7-1.1cm)Aortic Root(2D)3.0 (2.0-3.7cm) LVDd5.5 (3.9-5.9cm)LVOT Diameter2.4 (1.8-2.4cm) PWd1.4 (0.7-1.1cm)LVDs4.1 (2.5-4.0cm) FS (%) 25.1 %SV73.0 ml Aortic Valve AoV Peak Tye.134.2cm/sAoV VTI27.7cm AO Peak GR.7.2mmHgLVOT Peak Tye.86.8cm/s AO Mean GR.3mmHgAVA (VMAX)3.02cm2 Mitral Valve MV E Xegsgvhm56.2cm/sMV DECEL [id number] MV A Hhycndlw11.5cm/sE/A Ratio0.9 MV A [id number] Pulmonary Valve PV Peak Jhktjoyv316.4cm/s Pulmonary Vein S1 Iicbbpls39.8cm/sD2 Fjeazpib73.7cm/s PVa [id number] LEFT VENTRICLE The left ventricle is normal size. There is mild concentric left ventricular hypertrophy. The left ve ntricular systolic function is normal. Ejection fraction is 55-60%. There is normal LV segmental wal l motion. Transmitral Doppler flow pattern is normal for age. RIGHT VENTRICLE The right ventricle is normal size. There is normal right ventricular wall thickness. The right ventr icular systolic function is normal. ATRIA The left atrium size is normal. The right atrium size is normal. The interatrial septum is intact wit h no evidence for an atrial septal defect or patent foramen ovale as noted on 2-D or Doppler imaging. AORTIC VALVE The aortic valve is normal in structure and function. Doppler and Color Flow revealed no significant aortic regurgitation. There is no significant aortic valvular stenosis. MITRAL VALVE The mitral valve is normal in structure and function. There is no evidence of mitral valve prolapse. There is no mitral valve stenosis. Doppler and Color-flow revealed trace mitral regurgitation. TRICUSPID VALVE The tricuspid valve is normal in structure and function. Doppler and Color Flow revealed trace tricus pid valve regurgitation. PULMONIC VALVE The pulmonary valve is normal in structure and function. Doppler and Color Flow revealed mild pulmoni c valvular regurgitation. GREAT VESSELS The aortic root is normal in size. The ascending aorta is normal in size. The pulmonary artery is nor mal. The IVC is normal in size and collapses >50% with inspiration. PERICARDIAL EFFUSION There is no evidence of significant pericardial effusion. Critical Notification Critical Value: No <Conclusion> The left ventricle is normal size. The left ventricular systolic function is normal. Ejection fraction is 55-60%. There is mild concentric left ventricular hypertrophy. Doppler and Color Flow revealed no significant aortic regurgitation. There is no significant aortic valvular stenosis. Doppler and Color-flow revealed trace mitral regurgitation. Doppler and Color Flow revealed trace tricuspid valve regurgitation. Signed by : Isma Castro MD Electronically Approved : 03/13/2020 11:27:06
== END ==
LOC: ECHO 08:10
PROVIDERS: ATTEND Internal Medicine Cardiovascular Disease
DX: I51.7 Cardiomegaly (principal); I25.10 Atherosclerotic heart disease of native coronary artery without angina pectoris
CPT/HCPCS: 93306

== ENCOUNTER 2020-09-16 12:01 | Inpatient (IN) | payer MEDICARE ==
[~2020-09-16] VITALS: Ht 165.1 cm; Wt 138.4 kg
[~2020-09-16 12:01] MED LIST changes: -AMIO200T4 PO; +AMIO200T6 PO; -ASPI-612 PO; +ASPI-886 PO; +FAMO20TA5 PO; +INSU100I17 SQ; +METH-38 PO; -POLY17PO28 PO; +POLY17PO52 PO; +TIZA-58 PO; -TIZA2TAB4 PO
--- NOTE | 2020-09-16 13:26 | ED.ADGEN ---
Past Medical History Past Medical History: CAD, CHF, Diabetes-Type II, High Cholesterol, Hypertension, OK Past Surgical History: Cholecystectomy, Pacemaker, Other Additional Past Surgical Histo: Cardiac stent, ROTATAR CUFF, HERNIA Smoking Status: Former Smoker Alcohol Use: None Drug Use: None General Adult EDM: Chief Complaint: SHORTNESS OF BREATH HPI: HPI: Patient is a morbidly obese 70-year-old male who arrives with ambulatory to the emergency department at the referral of his pompom maker. Patient reports he has been developing progressive shortness of air which has progressed to bother him at rest. Patient also reports to some substernal chest pain which developed earlier today however that has since dissipated. The patient however states that he does have it is also history which includes hypertension as well as congestive heart failure and is able to speak in broken sentences. Despite his symptoms he denies any history of coronavirus exposures. Specifically he denies any cough or fever. He is awake, alert and ill-appearing. Review of Systems: Review of Systems: Constitutional: Denies fever or chills. [] Eyes: Denies change in visual acuity. [] HENT: Denies nasal congestion or sore throat. [] Respiratory: Reports shortness of air as well as exertional dyspnea. Denies cough. [] Cardiovascular: Reports chest pain with peripheral edema. GI: Denies abdominal pain, nausea, vomiting, bloody stools or diarrhea. [] : Denies dysuria. [] Musculoskeletal: Denies back pain or joint pain. [] Integument: Denies rash. [] Neurologic: Denies headache, focal weakness or sensory changes. [] Endocrine: Denies polyuria or polydipsia. [] Lymphatic: Denies swollen glands. [] Psychiatric: Denies depression or anxiety. [] Current Medications: Current Medications Medications (Trade) Dose Ordered Sig/Lito Start Time Stop Time Status Last Admin Dose Admin Aspirin (Hiram Aspirin) 325 mg 1X ONCE 09/16/20 13:30 09/16/20 13:31 DC 09/16/20 13:50 325 MG Furosemide (Lasix) 40 mg 1X ONCE 09/16/20 15:30 09/16/20 15:31 DC Nitroglycerin (Nitrostat) 0.4 mg PRN Q5MIN PRN 09/16/20 15:30 Allergies: Allergies: Allergies Coded Allergies Type Severity Reaction Last Updated Verified vancomycin Allergy Severe Rash AND SOA 11/23/19 Yes I S O L A T I O N *CONTACT* Allergy Unknown 12/29/19 Yes Physical Exam: PE: Constitutional: Morbidly obese and ill-appearing. well nourished, non-toxic appearance. [] HENT: Normocephalic, atraumatic, bilateral external ears normal, oropharynx moist, no oral exudates, nose normal. [] Eyes: PERRLA, EOMI, conjunctiva normal, no discharge. [] Neck: Normal range of motion, no tenderness, supple, no stridor. [] Cardiovascular:Heart rate regular rhythm, no murmur [] Lungs & Thorax: Subtle crackles bilaterally with diminished breath sounds. Abdomen: Bowel sounds normal, soft, no tenderness, no masses, no pulsatile masses. [] Skin: Warm, dry, no erythema, no rash. [] Back: No tenderness, no CVA tenderness. [] Extremities: Patient has peripheral edema which appears to be chronic in nature. No tenderness, no cyanosis, no clubbing, ROM intact, Neurologic: Alert and oriented X 3, normal motor function, normal sensory function, no focal deficits noted. [] Psychologic: Affect normal, judgement normal, mood normal. [] Current Patient Data: Labs: Laboratory Tests Test 09/16/20 13:44 White Blood Count 12.9 x10^3/uL (4.0-11.0) H Red Blood Count 4.40 x10^6/uL (4.30-5.70) Hemoglobin 12.3 g/dL (13.0-17.5) L Hematocrit 37.7 % (39.0-53.0) L Mean Corpuscular Volume 86 fL (79-100) Mean Corpuscular Hemoglobin 28 pg (25-35) Mean Corpuscular Hemoglobin Concent 33 g/dL (31-37) Red Cell Distribution Width 15.8 % (11.5-14.5) H Platelet Count 509 x10^3/uL (140-400) H Neutrophils (%) (Auto) 76 % (31-73) H Lymphocytes (%) (Auto) 13 % (24-48) L Monocytes (%) (Auto) 10 % (0-9) H Eosinophils (%) (Auto) 1 % (0-3) Basophils (%) (Auto) 1 % (0-3) Neutrophils # (Auto) 9.8 x10^3/uL (1.8-7.7) H Lymphocytes # (Auto) 1.6 x10^3/uL (1.0-4.8) Monocytes # (Auto) 1.2 x10^3/uL (0.0-1.1) H Eosinophils # (Auto) 0.1 x10^3/uL (0.0-0.7) Basophils # (Auto) 0.1 x10^3/uL (0.0-0.2) Sodium Level 138 mmol/L (136-145) Potassium Level 4.6 mmol/L (3.5-5.1) Chloride Level 104 mmol/L (98-107) Carbon Dioxide Level 24 mmol/L (21-32) Anion Gap 10 (6-14) Blood Urea Nitrogen 18 mg/dL (8-26) Creatinine 1.0 mg/dL (0.7-1.3) Estimated GFR (Cockcroft-Gault) 74.3 BUN/Creatinine Ratio 18 (6-20) Glucose Level 118 mg/dL (70-99) H Calcium Level 9.6 mg/dL (8.5-10.1) Total Bilirubin 0.4 mg/dL (0.2-1.0) Aspartate Amino Transferase (AST) 14 U/L (15-37) L Alanine Aminotransferase (ALT) 31 U/L (16-63) Alkaline Phosphatase 81 U/L (46-116) Troponin I Quantitative < 0.017 ng/mL (0.000-0.055) WS-Lhn-F-Type Natriuretic Peptide 584 pg/mL (0-124) H Total Protein 7.9 g/dL (6.4-8.2) Albumin 3.4 g/dL (3.4-5.0) Albumin/Globulin Ratio 0.8 (1.0-1.7) L Laboratory Tests 09/16/20 13:44 Laboratory Tests 09/16/20 13:44 Vital Signs: Vital Signs Date Time Temp Pulse Resp B/P (MAP) Pulse Ox O2 Delivery O2 Flow Rate FiO2 09/16/20 13:30 24 168/94 (118) 97 Room Air 09/16/20 12:42 98.1 87 98.1 EKG: EKG: EKG was obtained at 1340 hrs. and revealed a pattern most likely consistent with atrial flutter. There is a ventricular heart rate of 101 bpm. EKG quality is poor however there are no observed ST/T wave changes denoting ischemia. There appears to be a great deal of artifact/ectopy. [] Heart Score: HEART Score for Chest Pain: HEART Score for Chest Pain Response (Comments) Value History Moderately Suspicious 1 Age > 65 2 Risk Factors >3 Risk Factors or Hx CAD 2 Total 5 Risk Factors: Risk Factors: DM, Current or recent (<one month) smoker, HTN, HLP, family history of CAD, obesity. Risk Scores: Score 0 - 3: 2.5% MACE over next 6 weeks - Discharge Home Score 4 - 6: 20.3% MACE over next 6 weeks - Admit for Clinical Observation Score 7 - 10: 72.7% MACE over next 6 weeks - Early Invasive Strategies Radiology/Procedures: Radiology/Procedures: [] Impression: [facility] [id number] [place] [address] IMAGING REPORT Signed PATIENT: MALINDA LOPEZ ACCOUNT: [id number] : 1950 LOCATION: ER AGE: 70 SEX: M EXAM STATUS: REG ER ORD. PHYSICIAN: OZZY BROOKS DO REASON: Shortness of air PROCEDURE: PORTABLE CHEST 1V Examination: XR CHEST 1V History: Reason: Shortness of air / Spl. Instructions: / History: Comparison/Correlation: 09/04/2020 Findings: Portable upright frontal view of the chest was obtained. Dual lead left-sided pacemaker is present. Heart size is within upper limits of normal. Pulmonary vasculature is mildly congested. No pneumothorax. No definite infiltrate although evaluation of the left lung base is limited due to underpenetrated technique and patient body habitus. No definite finding of pleural effusion. No acute bony process. Impression: Mild pulmonary vasculature congestion. Electronically signed by: Dontae Barber MD (09/16/2020 1:49 PM) [id number] DICTATED and SIGNED BY: DONTAE BARBER MD DATE: 09/16/20 [id number] Course & Med Decision Making: Course & Med Decision Making Pertinent Labs and Imaging studies reviewed. (See chart for details) [] Dragon Disclaimer: Dragon Disclaimer: This electronic medical record was generated, in whole or in part, using a voice recognition dictation system. Departure Departure Impression: Primary Impression: Acute on chronic diastolic (congestive) heart failure Additional Impressions: Respiratory distress Morbid obesity Chest pain Disposition: 09 ADMITTED INPT THIS HOSP Admitting Physician: HIMMalia Condition: STABLE Referrals: MARY DE LA ROSA MD (PCP) Problem Qualifiers OZZY BROOKS DO Sep 16, 2020 13:26
[2020-09-16] MEDS ORDERED: ASPIRIN 325 MG TABLET PO ONE (13:30)
--- NOTE | 2020-09-16 13:51 | RAD ---
Examination: XR CHEST 1V History: Reason: Shortness of air / Spl. Instructions: / History: Comparison/Correlation: 09/04/2020 Findings: Portable upright frontal view of the chest was obtained. Dual lead left-sided pacemaker is present. Heart size is within upper limits of normal. Pulmonary vasculature is mildly congested. No p neumothorax. No definite infiltrate although evaluation of the left lung base is limited due to under penetrated technique and patient body habitus. No definite finding of pleural effusion. No acute bony process. Impression: Mild pulmonary vasculature congestion. Electronically signed by: Dontae Dinh MD (09/16/2020 1:49 PM) [id number]
[2020-09-16 13:55] LABS: BASO # 0.1 x10^3/uL (0.0-0.2); BASO % 1 % (0-3); EOS # 0.1 x10^3/uL (0.0-0.7); EOS % 1 % (0-3); HEMATOCRIT 37.7 % (39.0-53.0); HEMOGLOBIN 12.3 g/dL (13.0-17.5); LYMPH # 1.6 x10^3/uL (1.0-4.8); LYMPH % 13 % (24-48); MEAN CORPUSCULAR HEMOGLOBIN 28 pg (25-35); MEAN CORPUSCULAR HGB CONC 33 g/dL (31-37); MEAN CORPUSCULAR VOLUME 86 fL (79-100); MONO # 1.2 x10^3/uL (0.0-1.1); MONO % 10 % (0-9); NEUT # 9.8 x10^3/uL (1.8-7.7); NEUT % 76 % (31-73); PLATELET COUNT 509 x10^3/uL (140-400); RED CELL DISTRIBUTION WIDTH 15.8 % (11.5-14.5); WHITE BLOOD COUNT 12.9 x10^3/uL (4.0-11.0)
[2020-09-16 14:03] LABS: CALCIUM 9.6 mg/dL (8.5-10.1); GFR 74.3; POTASSIUM 4.6 mmol/L (3.5-5.1)
[2020-09-16 14:09] LABS: ALBUMIN 3.4 g/dL (3.4-5.0); ALBUMIN/GLOBULIN RATIO 0.8 (1.0-1.7); TOTAL BILIRUBIN 0.4 mg/dL (0.2-1.0); TOTAL PROTEIN 7.9 g/dL (6.4-8.2)
[2020-09-16] MEDS ORDERED: FUROSEMIDE 40 MG/4 ML VIAL. IVP ONE (15:30)
[2020-09-16] MEDS: NITROGLYCERIN SUBLINGUAL 0.4 MG BOTTLE OF 25. SL PRN ×2 (15:40→15:48)
[2020-09-16] MEDS ORDERED: MORPHINE SULFATE 4 MG/ML VIAL. IV ONE (15:45)
[2020-09-16] MEDS ORDERED: ONDANSETRON PF 4 MG/2 ML VIAL. IVP ONE (15:45)
--- NOTE | 2020-09-16 15:55 | PDOC1 ---
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 Patient reports he has been developing progressive shortness of air which has progressed to bother him at rest. Patient also reports to some substernal chest pain which developed earlier today however that has since dissipated. The patient however states that he does have it is also history which includes hypertension as well as congestive heart failure and is able to speak in broken sentences. Despite his symptoms he denies any history of coronavirus exposures. Specifically he denies any cough or fever. He is awake, alert and ill-a ppearing. Past Medical History Past Medical History Past Medical History Past Medical History: CAD, CHF, Diabetes-Type II, High Cholesterol, Hypertension, ND Past Surgical History: Cholecystectomy, Pacemaker, Other Additional Past Surgical Histo: Cardiac stent, ROTATAR CUFF, HERNIA Smoking Status: Former Smoker Alcohol Use: None Drug Use: None FHX COPD, OBESITY Cardiovascular: AFIB, CAD, CHF, HTN, Hyperlipidemia, Other Pulmonary: No pertinent hx GI: No pertinent hx Psych: No pertinent hx Musculoskeletal: low back pain, Osteoarthritis Renal/: Chronic renal insuff, Benign prostatic enlarg., Other Endocrine: No pertinent hx Past Surgical History Past Surgical History: Pacemaker, Arthroscopy, Cholecystectomy, Hernia Repair, Other Family History Family History: Chronic Bronchitis, Heart Disease, High Cholestrol Social History Smoke: No ALCOHOL: none Drugs: None Current Problem List Problem List Problems Medical Problems: (1) Acute on chronic diastolic (congestive) heart failure Status: Acute (2) Chest pain Status: Acute (3) Morbid obesity Status: Chronic (4) Respiratory distress Status: Acute Current Medications Current Medications Current Medications Aspirin (Hiram Aspirin) 325 mg 1X ONCE PO Last administered on 09/16/20at 13:50; Start 09/16/20 at 13:30; Stop 09/16/20 at 13:31; Status DC Furosemide (Lasix) 40 mg 1X ONCE IVP Last administered on 09/16/20at 15:39; Start 09/16/20 at 15:30; Stop 09/16/20 at 15:31; Status DC Nitroglycerin (Nitrostat) 0.4 mg PRN Q5MIN PRN SL CHEST PAIN Last administered on 09/16/20at 15:48; Start 09/16/20 at 15:30 Morphine Sulfate (Morphine Sulfate) 4 mg 1X ONCE IV Last administered on 09/16/20at 15:47; Start 09/16/20 at 15:45; Stop 09/16/20 at 15:46; Status DC Ondansetron HCl (Zofran) 4 mg 1X ONCE IVP Last administered on 09/16/20at 15:47; Start 09/16/20 at 15:45; Stop 09/16/20 at 15:46; Status DC Active Scripts Active Klor-Con M20 (Potassium Chloride) 20 Meq Tab.er.prt 1 Tab PO DAILY 30 Days Metoprolol Tartrate 25 Mg Tablet 1 Tab PO BID Furosemide 40 Mg Tablet 40 Mg PO DAILY 30 Days Metformin Hcl 500 Mg Tablet 500 Mg PO BIDWMEALS 30 Days Eliquis (Apixaban) 5 Mg Tablet 5 Mg PO BID 30 Days Reported Famotidine 20 Mg Tablet 20 Mg PO BID Novolog Flexpen (Insulin Aspart) 100 Unit/1 Ml Insuln.pen 15 Unit SQ TIDBFRMEAL Robaxin-750 (Methocarbamol) 750 Mg Tablet 500 Mg PO TID PRN PRN Hydrocodone-Apap 7.5-325 (Hydrocodone Bit/Acetaminophen) 1 Tab Tablet 1 Tab PO PRN Q6HRS PRN Aspir 81 (Aspirin) 81 Mg Tablet.dr 81 Mg PO DAILY Fenofibrate (Fenofibrate,Micronized) 134 Mg Capsule 134 Mg PO DAILY Atorvastatin Calcium 40 Mg Tablet 40 Mg PO HS Amiodarone Hcl 200 Mg Tablet 200 Mg PO DAILY Allergies Allergies: Coded Allergies: vancomycin (Verified Allergy, Severe, Rash AND SOA, 11/23/19) I S O L A T I O N *CONTACT* (Verified Allergy, Unknown, 12/29/19) ESBL Physical Exam Physical Exam Constitutional: Morbidly obese and ill-appearing. well nourished, non-toxic appearance. [] HENT: Normocephalic, atraumatic, bilateral external ears normal, oropharynx moist, no oral exudates, nose normal. [] Eyes: PERRLA, EOMI, conjunctiva normal, no discharge. [] Neck: Normal range of motion, no tenderness, supple, no stridor. [] Cardiovascular:Heart rate regular rhythm, no murmur [] Lungs & Thorax: Subtle crackles bilaterally with diminished breath sounds. Abdomen: Bowel sounds normal, soft, no tenderness, no masses, no pulsatile masses. [] Skin: Warm, dry, no erythema, no rash. [] Back: No tenderness, no CVA tenderness. [] Extremities: Patient has peripheral edema which appears to be chronic in nature. No tenderness, no cyanosis, no clubbing, ROM intact, Neurologic: Alert and oriented X 3, normal motor function, normal sensory function, no focal deficits noted. [] Psychologic: Affect normal, judgment normal, mood normal. [] General: Alert, Oriented X3, Cooperative, mild distress HEENT: Atraumatic, EOMI Heart: RRR, no thrills Breasts: Not examined Abdomen: Soft Rectal Exam: not examined Extremities: No cyanosis Neuro: Normal speech, Cranial nerves 3-12 NL Psych/Mental Status: Mental status NL, Mood NL Vitals Vitals Vital Signs Date Time Temp Pulse Resp B/P (MAP) Pulse Ox O2 Delivery O2 Flow Rate FiO2 09/16/20 15:48 109 138/73 09/16/20 13:30 24 97 Room Air 09/16/20 12:42 98.1 98.1 Labs Labs Laboratory Tests Test 09/16/20 13:44 White Blood Count 12.9 x10^3/uL (4.0-11.0) Red Blood Count 4.40 x10^6/uL (4.30-5.70) Hemoglobin 12.3 g/dL (13.0-17.5) Hematocrit 37.7 % (39.0-53.0) Mean Corpuscular Volume 86 fL (79-100) Mean Corpuscular Hemoglobin 28 pg (25-35) Mean Corpuscular Hemoglobin Concent 33 g/dL (31-37) Red Cell Distribution Width 15.8 % (11.5-14.5) Platelet Count 509 x10^3/uL (140-400) Neutrophils (%) (Auto) 76 % (31-73) Lymphocytes (%) (Auto) 13 % (24-48) Monocytes (%) (Auto) 10 % (0-9) Eosinophils (%) (Auto) 1 % (0-3) Basophils (%) (Auto) 1 % (0-3) Neutrophils # (Auto) 9.8 x10^3/uL (1.8-7.7) Lymphocytes # (Auto) 1.6 x10^3/uL (1.0-4.8) Monocytes # (Auto) 1.2 x10^3/uL (0.0-1.1) Eosinophils # (Auto) 0.1 x10^3/uL (0.0-0.7) Basophils # (Auto) 0.1 x10^3/uL (0.0-0.2) Sodium Level 138 mmol/L (136-145) Potassium Level 4.6 mmol/L (3.5-5.1) Chloride Level 104 mmol/L (98-107) Carbon Dioxide Level 24 mmol/L (21-32) Anion Gap 10 (6-14) Blood Urea Nitrogen 18 mg/dL (8-26) Creatinine 1.0 mg/dL (0.7-1.3) Estimated GFR (Cockcroft-Gault) 74.3 BUN/Creatinine Ratio 18 (6-20) Glucose Level 118 mg/dL (70-99) Calcium Level 9.6 mg/dL (8.5-10.1) Total Bilirubin 0.4 mg/dL (0.2-1.0) Aspartate Amino Transf (AST/SGOT) 14 U/L (15-37) Alanine Aminotransferase (ALT/SGPT) 31 U/L (16-63) Alkaline Phosphatase 81 U/L (46-116) Troponin I Quantitative < 0.017 ng/mL (0.000-0.055) YP-Ouh-H-Type Natriuretic Peptide 584 pg/mL (0-124) Total Protein 7.9 g/dL (6.4-8.2) Albumin 3.4 g/dL (3.4-5.0) Albumin/Globulin Ratio 0.8 (1.0-1.7) Laboratory Tests Test 09/16/20 13:44 White Blood Count 12.9 x10^3/uL (4.0-11.0) Red Blood Count 4.40 x10^6/uL (4.30-5.70) Hemoglobin 12.3 g/dL (13.0-17.5) Hematocrit 37.7 % (39.0-53.0) Mean Corpuscular Volume 86 fL (79-100) Mean Corpuscular Hemoglobin 28 pg (25-35) Mean Corpuscular Hemoglobin Concent 33 g/dL (31-37) Red Cell Distribution Width 15.8 % (11.5-14.5) Platelet Count 509 x10^3/uL (140-400) Neutrophils (%) (Auto) 76 % (31-73) Lymphocytes (%) (Auto) 13 % (24-48) Monocytes (%) (Auto) 10 % (0-9) Eosinophils (%) (Auto) 1 % (0-3) Basophils (%) (Auto) 1 % (0-3) Neutrophils # (Auto) 9.8 x10^3/uL (1.8-7.7) Lymphocytes # (Auto) 1.6 x10^3/uL (1.0-4.8) Monocytes # (Auto) 1.2 x10^3/uL (0.0-1.1) Eosinophils # (Auto) 0.1 x10^3/uL (0.0-0.7) Basophils # (Auto) 0.1 x10^3/uL (0.0-0.2) Sodium Level 138 mmol/L (136-145) Potassium Level 4.6 mmol/L (3.5-5.1) Chloride Level 104 mmol/L (98-107) Carbon Dioxide Level 24 mmol/L (21-32) Anion Gap 10 (6-14) Blood Urea Nitrogen 18 mg/dL (8-26) Creatinine 1.0 mg/dL (0.7-1.3) Estimated GFR (Cockcroft-Gault) 74.3 BUN/Creatinine Ratio 18 (6-20) Glucose Level 118 mg/dL (70-99) Calcium Level 9.6 mg/dL (8.5-10.1) Total Bilirubin 0.4 mg/dL (0.2-1.0) Aspartate Amino Transf (AST/SGOT) 14 U/L (15-37) Alanine Aminotransferase (ALT/SGPT) 31 U/L (16-63) Alkaline Phosphatase 81 U/L (46-116) Troponin I Quantitative < 0.017 ng/mL (0.000-0.055) UM-Ref-O-Type Natriuretic Peptide 584 pg/mL (0-124) Total Protein 7.9 g/dL (6.4-8.2) Albumin 3.4 g/dL (3.4-5.0) Albumin/Globulin Ratio 0.8 (1.0-1.7) Images Images LEFT VENTRICLE The left ventricle is normal size. There is mild concentric left ventricular hypertrophy. The left ventricular systolic function is normal and the ejection fraction is within normal range. The Ejection Fraction is 50-55%. There is normal LV segmental wall motion. Diastology indeterminate. RIGHT VENTRICLE The right ventricle is mildly dilated. There is normal right ventricular wall thickness. The right ventricular systolic function is normal. There is a probable pacemaker lead in the right ventricle. ATRIA The left atrium is mildly dilated. The right atrium is moderately dilated. The interatrial septum is intact with no evidence for an atrial septal defect or patent foramen ovale as noted on 2-D or Doppler imaging. AORTIC VALVE The aortic valve is not well visualized. Doppler and Color Flow revealed no significant aortic regurgitation. There is no significant aortic valvular stenosis. MITRAL VALVE The mitral valve is thickened but opens well. There is no evidence of mitral valve prolapse. There is no mitral valve stenosis. Doppler and Color-flow revealed trace mitral regurgitation. TRICUSPID VALVE The tricuspid valve is not well visualized. Doppler and Color Flow revealed trace tricuspid regurgitation with an estimated PAP of 33 mmHg. There is no tricuspid valve stenosis. PULMONIC VALVE The pulmonic valve is not well visualized. Doppler and Color Flow revealed no pulmonic valvular regurgitation. GREAT VESSELS The aortic root is normal in size. The IVC was not visualized. PERICARDIAL EFFUSION There is no evidence of significant pericardial effusion. Critical Notification Critical Value: No <Conclusion> The left ventricle is normal size. The left ventricular systolic function is normal and the ejection fraction is within normal range. The Ejection Fraction is 50-55%. There is mild concentric left ventricular hypertrophy. There is no significant aortic valvular stenosis. Doppler and Color Flow revealed no significant aortic regurgitation. Doppler and Color-flow revealed trace mitral regurgitation. Doppler and Color Flow revealed trace tricuspid regurgitation with an estimated PAP of 33 mmHg. Signed by : Isma Castro MD Electronically Approved : 04/17/2019 15:18:15 Examination: XR CHEST 1V History: Reason: Shortness of air / Spl. Instructions: / History: Comparison/Correlation: 09/04/2020 Findings: Portable upright frontal view of the chest was obtained. Dual lead left-sided pacemaker is present. Heart size is within upper limits of normal. Pulmonary vasculature is mildly congested. No pneumothorax. No definite infiltrate although evaluation of the left lung base is limited due to underpenetrated technique and patient body habitus. No definite finding of pleural effusion. No acute bony process. Impression: Mild pulmonary vasculature congestion. Electronically signed by: Dontae Barber MD (09/16/2020 1:49 PM) [id number] DICTATED and SIGNED BY: DONTAE BARBER MD DATE: 09/16/20 [id number] 0 VTE Prophylaxis Ordered VTE Prophylaxis Devices: No VTE Pharmacological Prophylaxi: Yes Assessment/Plan Assessment/Plan Impression: Acute on chronic diastolic (congestive) heart failure atrial flutter Acute hypertensive urgency Respiratory distress, acute due to pulmonary edema Morbid obesity Chest pain Possible COVID-19 CAD, diabetes, hypertension, hx myocardial infarction,pacemaker, cardiac stents, ADMITTED iv lasix 40mg bid cardiology consult DVT PROPHYLAXIS IV BP CONTROL PRN PUI COVID 19 D/W ER Justifications for Admission Other Justification MAKENZIE TANG MD Sep 16, 2020 15:55
[2020-09-16] MEDS ORDERED: METHOCARBAMOL 750 MG TABLET PO PRN (16:00)
[2020-09-16] MEDS: metFORMIN 500 MG TABLET PO SCH (17:44)
[2020-09-16] MEDS: INSULIN LISPRO 300 UNITS/3 ML VIAL. SQ SCH (17:45)
[2020-09-16 19:00] VITALS: BP 148/67
[2020-09-16] MEDS ORDERED: DEXTROSE 50% 25 GM / 50ML DISP.SYRIN. IV PRN (20:15)
[2020-09-16] MEDS: FAMOTIDINE 20 MG TABLET. PO SCH (21:00)
[2020-09-16] MEDS: METOPROLOL TART IMMED RELEASE 25 MG TABLET. PO SCH (21:52)
[2020-09-16] MEDS: APIXABAN 5 MG TABLET. PO SCH (21:52)
[2020-09-16] MEDS: ATORVASTATIN CALCIUM 40 MG TABLET. PO SCH (21:52)
[2020-09-16] MEDS: HYDROcodone/APAP 7.5/325MG 1 TAB TABLET PO PRN (21:53)
[2020-09-16 22:11] VITALS: BP 154/74
[2020-09-17 03:42] VITALS: BP 118/69
[2020-09-17] MEDS: HYDROcodone/APAP 7.5/325MG 1 TAB TABLET PO PRN ×3 (04:23→20:56)
[2020-09-17 06:10] VITALS: BP 125/72
[2020-09-17] MEDS: INSULIN LISPRO 300 UNITS/3 ML VIAL. SQ SCH ×6 (08:00→18:24)
--- NOTE | 2020-09-17 08:24 | PDOC ---
PROGRESS NOTES Date of Service: DATE: 09/17/20 TIME: 08:23 Chief Complaint Chief Complaint VTE Prophylaxis Ordered VTE Prophylaxis Devices: No VTE Pharmacological Prophylaxi: Yes Assessment/Plan Assessment/Plan Impression: Acute on chronic diastolic (congestive) heart failure atrial flutter Acute hypertensive urgency Respiratory distress, acute due to pulmonary edema Morbid obesity Chest pain Possible COVID-19 CAD, diabetes, hypertension, hx myocardial infarction,pacemaker, cardiac stents, ADMITTED iv lasix 40mg bid cardiology consult DVT PROPHYLAXIS IV BP CONTROL PRN PUI COVID 19 D/W RN Justifications for Admission Other Justification History of Present Illness History of Present Illness Identification/Chief Complaint Chief Complaint SEEN IN ER WITH ACUTE CHF, 70-year-old male who arrives with ambulatory to the emergency department at the referral of his cardiology fellow. Patient reports he has been developing progressive shortness of air which has progressed to bother him at rest. Patient also reports to some substernal chest pain which developed earlier today however that has since dissipated. The patient however states that he does have it is also history which includes hypertension as well as congestive heart failure and is able to speak in broken sentences. Despite his symptoms he denies any history of coronavirus exposures. Specifically he denies any cough or fever. He is awake, alert and ill- appearing. Past Medical History Past Medical History Past Medical History Past Medical History: CAD, CHF, Diabetes-Type II, High Cholesterol, Hypertension, ID Past Surgical History: Cholecystectomy, Pacemaker, Other Additional Past Surgical Histo: Cardiac stent, ROTATAR CUFF, HERNIA Smoking Status: Former Smoker Alcohol Use: None Drug Use: None FHX COPD, OBESITY Cardiovascular: AFIB, CAD, CHF, HTN, Hyperlipidemia, Other Pulmonary: No pertinent hx GI: No pertinent hx Psych: No pertinent hx Musculoskeletal: low back pain, Osteoarthritis Renal/: Chronic renal insuff, Benign prostatic enlarg., Other Endocrine: No pertinent hx Past Surgical History Past Surgical History: Pacemaker, Arthroscopy, Cholecystectomy, Hernia Repair, Other Family History Family History: Chronic Bronchitis, Heart Disease, High Cholestrol Social History Smoke: No ALCOHOL: none Drugs: None Current Problem List Problem List Problems Medical Problems: (1) Acute on chronic diastolic (congestive) heart failure Status: Acute (2) Chest pain Status: Acute (3) Morbid obesity Status: Chronic (4) Respiratory distress Status: Acute Vitals Vitals Vital Signs Date Time Temp Pulse Resp B/P (MAP) Pulse Ox O2 Delivery O2 Flow Rate FiO2 09/17/20 06:10 98.2 73 22 125/72 (89) 93 Room Air 98.2 Physical Exam Physical Exam HENT: Normocephalic, atraumatic, bilateral external ears normal, oropharynx moist, no oral exudates, nose normal. [] Eyes: PERRLA, EOMI, conjunctiva normal, no discharge. [] Neck: Normal range of motion, no tenderness, supple, no stridor. [] Cardiovascular:Heart rate regular rhythm, no murmur [] Lungs & Thorax: Subtle crackles bilaterally with diminished breath sounds. Abdomen: Bowel sounds normal, soft, no tenderness, no masses, no pulsatile masses. [] Skin: Warm, dry, no erythema, no rash. [] Back: No tenderness, no CVA tenderness. [] Extremities: Patient has peripheral edema which appears to be chronic in nature. No tenderness, no cyanosis, no clubbing, ROM intact, Neurologic: Alert and oriented X 3, normal motor function, normal sensory function, no focal deficits noted. [] Psychologic: Affect normal, judgment normal, mood normal. [] General: Alert, Oriented X3, Cooperative, mild distress HEENT: Atraumatic, EOMI Heart: RRR, no thrills Breasts: Not examined Abdomen: Soft Rectal Exam: not examined Extremities: No cyanosis Neuro: Normal speech, Cranial nerves 3-12 NL Psych/Mental Status: Mental status NL, Mood NL General: Alert, Oriented X3, Cooperative, mild distress Heart: Regular rate Lungs: Wheezing Abdomen: Soft Extremities: No cyanosis Labs LABS Laboratory Tests Test 09/16/20 13:44 09/16/20 16:20 09/16/20 17:43 09/16/20 20:51 White Blood Count 12.9 x10^3/uL (4.0-11.0) Red Blood Count 4.40 x10^6/uL (4.30-5.70) Hemoglobin 12.3 g/dL (13.0-17.5) Hematocrit 37.7 % (39.0-53.0) Mean Corpuscular Volume 86 fL (79-100) Mean Corpuscular Hemoglobin 28 pg (25-35) Mean Corpuscular Hemoglobin Concent 33 g/dL (31-37) Red Cell Distribution Width 15.8 % (11.5-14.5) Platelet Count 509 x10^3/uL (140-400) Neutrophils (%) (Auto) 76 % (31-73) Lymphocytes (%) (Auto) 13 % (24-48) Monocytes (%) (Auto) 10 % (0-9) Eosinophils (%) (Auto) 1 % (0-3) Basophils (%) (Auto) 1 % (0-3) Neutrophils # (Auto) 9.8 x10^3/uL (1.8-7.7) Lymphocytes # (Auto) 1.6 x10^3/uL (1.0-4.8) Monocytes # (Auto) 1.2 x10^3/uL (0.0-1.1) Eosinophils # (Auto) 0.1 x10^3/uL (0.0-0.7) Basophils # (Auto) 0.1 x10^3/uL (0.0-0.2) Sodium Level 138 mmol/L (136-145) Potassium Level 4.6 mmol/L (3.5-5.1) Chloride Level 104 mmol/L (98-107) Carbon Dioxide Level 24 mmol/L (21-32) Anion Gap 10 (6-14) Blood Urea Nitrogen 18 mg/dL (8-26) Creatinine 1.0 mg/dL (0.7-1.3) Estimated GFR (Cockcroft-Gault) 74.3 BUN/Creatinine Ratio 18 (6-20) Glucose Level 118 mg/dL (70-99) Calcium Level 9.6 mg/dL (8.5-10.1) Total Bilirubin 0.4 mg/dL (0.2-1.0) Aspartate Amino Transf (AST/SGOT) 14 U/L (15-37) Alanine Aminotransferase (ALT/SGPT) 31 U/L (16-63) Alkaline Phosphatase 81 U/L (46-116) Troponin I Quantitative < 0.017 ng/mL (0.000-0.055) < 0.017 ng/mL (0.000-0.055) OE-Kmp-O-Type Natriuretic Peptide 584 pg/mL (0-124) Total Protein 7.9 g/dL (6.4-8.2) Albumin 3.4 g/dL (3.4-5.0) Albumin/Globulin Ratio 0.8 (1.0-1.7) Glucose (Fingerstick) 123 mg/dL (70-99) 96 mg/dL (70-99) Assessment and Plan Assessmemt and Plan Problems Medical Problems: (1) Acute on chronic diastolic (congestive) heart failure Status: Acute (2) Chest pain Status: Acute (3) Morbid obesity Status: Chronic (4) Respiratory distress Status: Acute Comment Review of Relevant I have reviewed the following items ashwini (where applicable) has been applied. Labs Laboratory Tests Test 09/16/20 13:44 09/16/20 16:20 09/16/20 17:43 09/16/20 20:51 White Blood Count 12.9 x10^3/uL (4.0-11.0) Red Blood Count 4.40 x10^6/uL (4.30-5.70) Hemoglobin 12.3 g/dL (13.0-17.5) Hematocrit 37.7 % (39.0-53.0) Mean Corpuscular Volume 86 fL (79-100) Mean Corpuscular Hemoglobin 28 pg (25-35) Mean Corpuscular Hemoglobin Concent 33 g/dL (31-37) Red Cell Distribution Width 15.8 % (11.5-14.5) Platelet Count 509 x10^3/uL (140-400) Neutrophils (%) (Auto) 76 % (31-73) Lymphocytes (%) (Auto) 13 % (24-48) Monocytes (%) (Auto) 10 % (0-9) Eosinophils (%) (Auto) 1 % (0-3) Basophils (%) (Auto) 1 % (0-3) Neutrophils # (Auto) 9.8 x10^3/uL (1.8-7.7) Lymphocytes # (Auto) 1.6 x10^3/uL (1.0-4.8) Monocytes # (Auto) 1.2 x10^3/uL (0.0-1.1) Eosinophils # (Auto) 0.1 x10^3/uL (0.0-0.7) Basophils # (Auto) 0.1 x10^3/uL (0.0-0.2) Sodium Level 138 mmol/L (136-145) Potassium Level 4.6 mmol/L (3.5-5.1) Chloride Level 104 mmol/L (98-107) Carbon Dioxide Level 24 mmol/L (21-32) Anion Gap 10 (6-14) Blood Urea Nitrogen 18 mg/dL (8-26) Creatinine 1.0 mg/dL (0.7-1.3) Estimated GFR (Cockcroft-Gault) 74.3 BUN/Creatinine Ratio 18 (6-20) Glucose Level 118 mg/dL (70-99) Calcium Level 9.6 mg/dL (8.5-10.1) Total Bilirubin 0.4 mg/dL (0.2-1.0) Aspartate Amino Transf (AST/SGOT) 14 U/L (15-37) Alanine Aminotransferase (ALT/SGPT) 31 U/L (16-63) Alkaline Phosphatase 81 U/L (46-116) Troponin I Quantitative < 0.017 ng/mL (0.000-0.055) < 0.017 ng/mL (0.000-0.055) GS-Btr-M-Type Natriuretic Peptide 584 pg/mL (0-124) Total Protein 7.9 g/dL (6.4-8.2) Albumin 3.4 g/dL (3.4-5.0) Albumin/Globulin Ratio 0.8 (1.0-1.7) Glucose (Fingerstick) 123 mg/dL (70-99) 96 mg/dL (70-99) Laboratory Tests Test 09/16/20 13:44 09/16/20 16:20 09/16/20 17:43 09/16/20 20:51 White Blood Count 12.9 x10^3/uL (4.0-11.0) Red Blood Count 4.40 x10^6/uL (4.30-5.70) Hemoglobin 12.3 g/dL (13.0-17.5) Hematocrit 37.7 % (39.0-53.0) Mean Corpuscular Volume 86 fL (79-100) Mean Corpuscular Hemoglobin 28 pg (25-35) Mean Corpuscular Hemoglobin Concent 33 g/dL (31-37) Red Cell Distribution Width 15.8 % (11.5-14.5) Platelet Count 509 x10^3/uL (140-400) Neutrophils (%) (Auto) 76 % (31-73) Lymphocytes (%) (Auto) 13 % (24-48) Monocytes (%) (Auto) 10 % (0-9) Eosinophils (%) (Auto) 1 % (0-3) Basophils (%) (Auto) 1 % (0-3) Neutrophils # (Auto) 9.8 x10^3/uL (1.8-7.7) Lymphocytes # (Auto) 1.6 x10^3/uL (1.0-4.8) Monocytes # (Auto) 1.2 x10^3/uL (0.0-1.1) Eosinophils # (Auto) 0.1 x10^3/uL (0.0-0.7) Basophils # (Auto) 0.1 x10^3/uL (0.0-0.2) Sodium Level 138 mmol/L (136-145) Potassium Level 4.6 mmol/L (3.5-5.1) Chloride Level 104 mmol/L (98-107) Carbon Dioxide Level 24 mmol/L (21-32) Anion Gap 10 (6-14) Blood Urea Nitrogen 18 mg/dL (8-26) Creatinine 1.0 mg/dL (0.7-1.3) Estimated GFR (Cockcroft-Gault) 74.3 BUN/Creatinine Ratio 18 (6-20) Glucose Level 118 mg/dL (70-99) Calcium Level 9.6 mg/dL (8.5-10.1) Total Bilirubin 0.4 mg/dL (0.2-1.0) Aspartate Amino Transf (AST/SGOT) 14 U/L (15-37) Alanine Aminotransferase (ALT/SGPT) 31 U/L (16-63) Alkaline Phosphatase 81 U/L (46-116) Troponin I Quantitative < 0.017 ng/mL (0.000-0.055) < 0.017 ng/mL (0.000-0.055) VC-Qfu-H-Type Natriuretic Peptide 584 pg/mL (0-124) Total Protein 7.9 g/dL (6.4-8.2) Albumin 3.4 g/dL (3.4-5.0) Albumin/Globulin Ratio 0.8 (1.0-1.7) Glucose (Fingerstick) 123 mg/dL (70-99) 96 mg/dL (70-99) Medications Current Medications Aspirin (Hiram Aspirin) 325 mg 1X ONCE PO Last administered on 09/16/20at 13:50; Start 09/16/20 at 13:30; Stop 09/16/20 at 13:31; Status DC Furosemide (Lasix) 40 mg 1X ONCE IVP Last administered on 09/16/20at 15:39; Start 09/16/20 at 15:30; Stop 09/16/20 at 15:31; Status DC Nitroglycerin (Nitrostat) 0.4 mg PRN Q5MIN PRN SL CHEST PAIN Last administered on 09/16/20at 15:48; Start 09/16/20 at 15:30 Morphine Sulfate (Morphine Sulfate) 4 mg 1X ONCE IV Last administered on 09/16/20at 15:47; Start 09/16/20 at 15:45; Stop 09/16/20 at 15:46; Status DC Ondansetron HCl (Zofran) 4 mg 1X ONCE IVP Last administered on 09/16/20at 15:47; Start 09/16/20 at 15:45; Stop 09/16/20 at 15:46; Status DC Amiodarone HCl (Cordarone) 200 mg DAILY PO ; Start 09/17/20 at 09:00 Apixaban (Eliquis) 5 mg BID PO Last administered on 09/16/20at 21:52; Start 09/16/20 at 21:00 Aspirin (Ecotrin) 81 mg DAILY PO ; Start 09/17/20 at 09:00 Atorvastatin Calcium (Lipitor) 40 mg HS PO Last administered on 09/16/20at 21:52; Start 09/16/20 at 21:00 Famotidine (Pepcid) 20 mg BID PO Last administered on 09/16/20at 21:00; Start 09/16/20 at 21:00 Fenofibrate (Lofibra) 134 mg DAILY PO ; Start 09/17/20 at 09:00 Metformin HCl (Glucophage) 500 mg BIDWMEALS PO Last administered on 09/16/20at 17:44; Start 09/16/20 at 17:00 Methocarbamol (Robaxin) 500 mg TID PRN PRN PO PAIN; Start 09/16/20 at 16:00; Stop 09/16/20 at 16:05; Status DC Metoprolol Tartrate (Lopressor) 25 mg BID PO Last administered on 09/16/20at 21:52; Start 09/16/20 at 21:00 Potassium Chloride (Klor-Con) 20 meq DAILY PO ; Start 09/17/20 at 09:00 Insulin Human Lispro (HumaLOG) 15 units TIDWMEALS SQ Last administered on 09/16/20at 17:45; Start 09/16/20 at 17:00 Furosemide (Lasix) 40 mg BID92 PO ; Start 09/17/20 at 09:00 Methocarbamol (Robaxin) 750 mg TID PRN PRN PO MUSCLE SPASMS; Start 09/16/20 at 16:15 Acetaminophen/ Hydrocodone Bitart (Lortab 7.5/325) 1 tab PRN Q6HRS PRN PO MODERATE TO SEVERE PAIN Last administered on 09/17/20at 04:23; Start 09/16/20 at 20:15 Insulin Human Lispro (HumaLOG) 0-5 UNITS TIDWMEALS SQ ; Start 09/17/20 at 08:00 Dextrose (Dextrose 50%-Water Syringe) 12.5 gm PRN Q15MIN PRN IV SEE COMMENTS; Start 09/16/20 at 20:15 Active Scripts Active Klor-Con M20 (Potassium Chloride) 20 Meq Tab.er.prt 1 Tab PO DAILY 30 Days Metoprolol Tartrate 25 Mg Tablet 1 Tab PO BID Furosemide 40 Mg Tablet 40 Mg PO DAILY 30 Days Metformin Hcl 500 Mg Tablet 500 Mg PO BIDWMEALS 30 Days Eliquis (Apixaban) 5 Mg Tablet 5 Mg PO BID 30 Days Reported Famotidine 20 Mg Tablet 20 Mg PO BID Novolog Flexpen (Insulin Aspart) 100 Unit/1 Ml Insuln.pen 15 Unit SQ TIDBFRMEAL Robaxin-750 (Methocarbamol) 750 Mg Tablet 500 Mg PO TID PRN PRN Hydrocodone-Apap 7.5-325 (Hydrocodone Bit/Acetaminophen) 1 Tab Tablet 1 Tab PO PRN Q6HRS PRN Aspir 81 (Aspirin) 81 Mg Tablet.dr 81 Mg PO DAILY Fenofibrate (Fenofibrate,Micronized) 134 Mg Capsule 134 Mg PO DAILY Atorvastatin Calcium 40 Mg Tablet 40 Mg PO HS Amiodarone Hcl 200 Mg Tablet 200 Mg PO DAILY Vitals/I & O Vital Sign - Last 24 Hours 09/16/20 09/16/20 09/16/20 09/16/20 12:42 13:30 14:00 14:36 Temp 98.1 98.1 Pulse 87 102 100 Resp 28 24 B/P (MAP) 155/104 (121) 168/94 (118) 224/154 (177) 184/95 (124) Pulse Ox 96 97 97 96 O2 Delivery Room Air Room Air Room Air Room Air 09/16/20 09/16/20 09/16/20 09/16/20 15:30 15:40 15:46 15:48 Pulse 100 108 106 109 B/P (MAP) 200/131 (154) 200/131 138/73 (94) 138/73 Pulse Ox 97 98 O2 Delivery Room Air Room Air 09/16/20 09/16/20 09/16/20 09/16/20 16:29 19:00 20:00 21:52 Temp 98.1 98.1 Pulse 93 109 109 Resp 21 B/P (MAP) 176/80 (112) 148/67 (94) 148/67 Pulse Ox 98 97 O2 Delivery Room Air Room Air Room Air 09/16/20 09/16/20 09/16/20 09/17/20 21:53 22:11 22:53 03:42 Pulse 80 70 Resp 22 20 B/P (MAP) 154/74 (100) 118/69 (85) Pulse Ox 97 92 92 95 O2 Delivery Nasal Cannula Room Air Room Air Room Air 09/17/20 09/17/20 09/17/20 04:23 05:23 06:10 Temp 98.2 98.2 Pulse 73 Resp 22 B/P (MAP) 125/72 (89) Pulse Ox 95 93 93 O2 Delivery Room Air Room Air Room Air Intake and Output 09/16/20 09/16/20 09/17/20 15:00 23:00 07:00 Intake Total 120 ml 200 ml Output Total 100 ml 450 ml Balance 20 ml -250 ml Justicifation of Admission Dx: Justifications for Admission: Justification of Admission Dx: Yes CHF: Hemodynamic Instability Comminuty Aquired Pneumonia: Hypoxemia MAKENZIE TANG MD Sep 17, 2020 08:24
[2020-09-17] MEDS: AMIODARONE HCL 200 MG TABLET. PO SCH (08:44)
[2020-09-17] MEDS: ASPIRIN ENTERIC COATED 81 MG TABLET.DR. PO SCH (08:44)
[2020-09-17] MEDS: APIXABAN 5 MG TABLET. PO SCH ×2 (08:45→20:57)
[2020-09-17] MEDS: metFORMIN 500 MG TABLET PO SCH ×2 (08:45→18:24)
[2020-09-17] MEDS: METOPROLOL TART IMMED RELEASE 25 MG TABLET. PO SCH ×2 (08:45→20:56)
[2020-09-17] MEDS: POTASSIUM CHLORIDE 20 MEQ TABLET.ER. PO SCH (08:45)
[2020-09-17] MEDS: FENOFIBRATE,MICRONIZED 134 MG CAPSULE PO SCH (08:45)
[2020-09-17] MEDS: FAMOTIDINE 20 MG TABLET. PO SCH ×2 (08:49→20:57)
[2020-09-17] MEDS ORDERED: POLYETHYLENE GLYCOL 3350 17 GM PACKET. PO PRN (09:00)
[2020-09-17] MEDS ORDERED: FUROSEMIDE 40 MG TABLET. PO SCH (09:00)
[2020-09-17 11:00] VITALS: BP 133/68
--- NOTE | 2020-09-17 11:55 | PDOC ---
FABI ADAMSON [employer] 09/17/20 1155: CARDIO Progress Notes Date and Time Date of Service 09/17/2020 Time of Evaluation 1110 Subjective Subjective: No Chest Pain, No shortness of breath, No Palpitations, Other (SOA much better) Vitals Vitals Vital Signs Date Time Temp Pulse Resp B/P (MAP) Pulse Ox O2 Delivery O2 Flow Rate FiO2 09/17/20 08:45 75 09/17/20 08:10 Room Air 09/17/20 06:10 98.2 22 125/72 (89) 93 98.2 Weight Weight [ ] Input and Output Intake and Output Intake and Output 09/17/20 07:00 Intake Total 320 ml Output Total 550 ml Balance -230 ml Intake Oral 320 ml Output Urine Total 550 ml Laboratory Labs Laboratory Tests Test 09/16/20 13:44 09/16/20 16:20 09/16/20 17:43 09/16/20 20:51 White Blood Count 12.9 x10^3/uL (4.0-11.0) Red Blood Count 4.40 x10^6/uL (4.30-5.70) Hemoglobin 12.3 g/dL (13.0-17.5) Hematocrit 37.7 % (39.0-53.0) Mean Corpuscular Volume 86 fL (79-100) Mean Corpuscular Hemoglobin 28 pg (25-35) Mean Corpuscular Hemoglobin Concent 33 g/dL (31-37) Red Cell Distribution Width 15.8 % (11.5-14.5) Platelet Count 509 x10^3/uL (140-400) Neutrophils (%) (Auto) 76 % (31-73) Lymphocytes (%) (Auto) 13 % (24-48) Monocytes (%) (Auto) 10 % (0-9) Eosinophils (%) (Auto) 1 % (0-3) Basophils (%) (Auto) 1 % (0-3) Neutrophils # (Auto) 9.8 x10^3/uL (1.8-7.7) Lymphocytes # (Auto) 1.6 x10^3/uL (1.0-4.8) Monocytes # (Auto) 1.2 x10^3/uL (0.0-1.1) Eosinophils # (Auto) 0.1 x10^3/uL (0.0-0.7) Basophils # (Auto) 0.1 x10^3/uL (0.0-0.2) Sodium Level 138 mmol/L (136-145) Potassium Level 4.6 mmol/L (3.5-5.1) Chloride Level 104 mmol/L (98-107) Carbon Dioxide Level 24 mmol/L (21-32) Anion Gap 10 (6-14) Blood Urea Nitrogen 18 mg/dL (8-26) Creatinine 1.0 mg/dL (0.7-1.3) Estimated GFR (Cockcroft-Gault) 74.3 BUN/Creatinine Ratio 18 (6-20) Glucose Level 118 mg/dL (70-99) Calcium Level 9.6 mg/dL (8.5-10.1) Total Bilirubin 0.4 mg/dL (0.2-1.0) Aspartate Amino Transf (AST/SGOT) 14 U/L (15-37) Alanine Aminotransferase (ALT/SGPT) 31 U/L (16-63) Alkaline Phosphatase 81 U/L (46-116) Troponin I Quantitative < 0.017 ng/mL (0.000-0.055) < 0.017 ng/mL (0.000-0.055) VA-Yij-E-Type Natriuretic Peptide 584 pg/mL (0-124) Total Protein 7.9 g/dL (6.4-8.2) Albumin 3.4 g/dL (3.4-5.0) Albumin/Globulin Ratio 0.8 (1.0-1.7) Glucose (Fingerstick) 123 mg/dL (70-99) 96 mg/dL (70-99) Test 09/17/20 07:45 Glucose (Fingerstick) 128 mg/dL (70-99) Physical Exam HEENT: Neck Supple W Full Motion Chest: Symmetric LUNGS: Other (diminished bases) Heart: RRR (SR) Abdomen: Other (obese) Extremities: No Calf Tenderness, Other (trace LE edema) Neurology: alert, oriented, follow commands Assessment Assessment HPI: This is a pleasant 70 yo male admitted for complains of shortness of breath. He was seen in our office yesterday and was tachypneic and SOA. Reports that he has not been eating high Na diet but has not been checking his BP at home since he does not have a machine for it. Denies any chest pain no palpitations. Presently his SOA is much better. Pls see office note for further details. 1. Acute on chronic diastolic CHF: possibly driven by high Na diet and uncontrolled HTN. recent EF and WM nml. Appears compensated on RA doing well 2. HTN urgency: improved 3. PUI 4. PAFIB: Maintaining SR with bigeminal PACs 5. Chronic NOAC: eliquis for stroke prevention 6. SSS with PPM in situ: [employer] Digitaltronic with hx of tachy-rhina syndrome 7. DM2/HLP 8. Chronic lymphedema 9. CAD; past LCx/LAD stents. Recent MPI unremarkable, clinically stable Recommendations IV bumex x1. BMP amd Mg. Change home lasix to bumex. Dietitian consult for DASH diet continue amiodarone for rhythm maintenance. Eliquis for stroke prevention Continue secondary prevention measures Possible TEETEE. consider outpt w/u Discussed diet compliance and HBPM, he will purchase upon DC. daily wt. Possible DC this afternoon Justicifation of Admission Dx: Justifications for Admission: Justification of Admission Dx: Yes CHF: Hemodynamic Instability Comminuty Aquired Pneumonia: Hypoxemia JAIMIE GILMAN MD 09/18/20 1004: CARDIO Progress Notes Assessment Assessment Patient seen and examined 09/17/20. Agree with LEARNING ADMINISTRATOR's assessment and plan. Ac on chr diastolic HF better compensated. Change diuretic regimen to bumex CAD stable PAF maintaining SR BP improved OK for DC from cardiac standpoint FABI ADAMSON APRN Sep 17, 2020 11:55 JAIMIE GILMAN MD Sep 18, 2020 10:04
[2020-09-17] MEDS ORDERED: BUMETANIDE 1 MG/4 ML VIAL. IV ONE (13:30)
[2020-09-17 15:00] VITALS: BP 170/72
[2020-09-17 17:08] LABS: CALCIUM 9.8 mg/dL (8.5-10.1); CREATININE 1.3 mg/dL (0.7-1.3); GFR 54.9; POTASSIUM 4.5 mmol/L (3.5-5.1)
[2020-09-17 17:15] LABS: MAGNESIUM 2.1 mg/dL (1.8-2.4)
[2020-09-17 19:12] VITALS: BP 145/70
[2020-09-17] MEDS: ATORVASTATIN CALCIUM 40 MG TABLET. PO SCH (20:56)
[2020-09-17 23:12] VITALS: BP 137/64
[2020-09-18] MEDS: HYDROcodone/APAP 7.5/325MG 1 TAB TABLET PO PRN ×4 (03:03→21:28)
[2020-09-18 03:07] VITALS: BP 112/68
[2020-09-18 07:00] VITALS: BP 102/79
[2020-09-18] MEDS: ANTI-COAG MONITOR BY PHARMACY. MC PRN (07:59)
[2020-09-18] MEDS: INSULIN LISPRO 300 UNITS/3 ML VIAL. SQ SCH ×6 (08:00→17:00)
[2020-09-18] MEDS: FAMOTIDINE 20 MG TABLET. PO SCH ×2 (09:51→21:28)
[2020-09-18] MEDS: POTASSIUM CHLORIDE 20 MEQ TABLET.ER. PO SCH (09:51)
[2020-09-18] MEDS: BUMETANIDE 1 MG TABLET. PO SCH (09:52)
[2020-09-18] MEDS: ASPIRIN ENTERIC COATED 81 MG TABLET.DR. PO SCH (09:52)
[2020-09-18] MEDS: AMIODARONE HCL 200 MG TABLET. PO SCH (09:52)
[2020-09-18] MEDS: metFORMIN 500 MG TABLET PO SCH ×2 (09:52→17:00)
[2020-09-18] MEDS: APIXABAN 5 MG TABLET. PO SCH ×2 (09:52→21:28)
[2020-09-18] MEDS: METOPROLOL TART IMMED RELEASE 25 MG TABLET. PO SCH ×2 (09:53→21:28)
--- NOTE | 2020-09-18 09:57 | PDOC ---
[facility] PROGRESS NOTE Date of Service DOS: DATE: 09/18/20 TIME: 09:55 Chief Complaint Chief Complaint Acute on chronic diastolic (congestive) heart failure Atrial flutter Acute hypertensive urgency Respiratory distress, acute due to pulmonary edema Morbid obesity Chest pain Possible COVID-19 CAD, Diabetes, Hypertension, Old myocardial infarction,pacemaker, cardiac stents, History of Present Illness History of Present Illness 09/18/2020 Patient seen and examined Discussed with RN Chart reviewed Identification/Chief Complaint Chief Complaint SEEN IN ER WITH ACUTE CHF, 70-year-old male who arrives with ambulatory to the emergency department 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 Patient reports he has been developing progressive shortness of air which has progressed to bother him at rest. Patient also reports to some substernal chest pain which developed earlier today however that has since dissipated. The patient however states that he does have it is also history which includes hypertension as well as congestive heart failure and is able to speak in broken sentences. Despite his symptoms he denies any history of coronavirus exposures. Specifically he denies any cough or fever. He is awake, alert and ill- appearing. Past Medical History Past Medical History Past Medical History Past Medical History: CAD, CHF, Diabetes-Type II, High Cholesterol, Hypertension, [place] Past Surgical History: Cholecystectomy, Pacemaker, Other Additional Past Surgical Histo: Cardiac stent, ROTATAR CUFF, HERNIA Smoking Status: Former Smoker Alcohol Use: None Drug Use: None FHX COPD, OBESITY Cardiovascular: AFIB, CAD, CHF, HTN, Hyperlipidemia, Other Pulmonary: No pertinent hx GI: No pertinent hx Psych: No pertinent hx Musculoskeletal: low back pain, Osteoarthritis Renal/: Chronic renal insuff, Benign prostatic enlarg., Other Endocrine: No pertinent hx Past Surgical History Past Surgical History: Pacemaker, Arthroscopy, Cholecystectomy, Hernia Repair, Other Family History Family History: Chronic Bronchitis, Heart Disease, High Cholestrol Social History Smoke: No ALCOHOL: none Drugs: None Current Problem List Problem List Problems Medical Problems: (1) Acute on chronic diastolic (congestive) heart failure Status: Acute (2) Chest pain Status: Acute (3) Morbid obesity Status: Chronic (4) Respiratory distress Status: Acute Vitals/I&O Vitals/I&O: Vital Signs Date Time Temp Pulse Resp B/P (MAP) Pulse Ox O2 Delivery O2 Flow Rate FiO2 09/18/20 09:53 77 102/79 09/18/20 07:00 95.9 18 90 Room Air 95.9 I & O 09/17/20 09/17/20 09/18/20 15:00 23:00 07:00 Intake Total 450 ml 300 ml 350 ml Output Total 950 ml 1100 ml 475 ml Balance -500 ml -800 ml -125 ml Physical Exam Physical Exam: HENT: Normocephalic, atraumatic, bilateral external ears normal, oropharynx moist, no oral exudates, nose normal. [] Eyes: PERRLA, EOMI, conjunctiva normal, no discharge. [] Neck: Normal range of motion, no tenderness, supple, no stridor. [] Cardiovascular:Heart rate regular rhythm, no murmur [] Lungs & Thorax: Subtle crackles bilaterally with diminished breath sounds. Abdomen: Bowel sounds normal, soft, no tenderness, no masses, no pulsatile masses. [] Skin: Warm, dry, no erythema, no rash. [] Back: No tenderness, no CVA tenderness. [] Extremities: Patient has peripheral edema which appears to be chronic in nature. No tenderness, no cyanosis, no clubbing, ROM intact, Neurologic: Alert and oriented X 3, normal motor function, normal sensory function, no focal deficits noted. [] Psychologic: Affect normal, judgment normal, mood normal. [] General: Alert, Oriented X3, Cooperative, mild distress HEENT: Atraumatic, EOMI Heart: RRR, no thrills Breasts: Not examined Abdomen: Soft Rectal Exam: not examined Extremities: No cyanosis Neuro: Normal speech, Cranial nerves 3-12 NL Psych/Mental Status: Mental status NL, Mood NL General: Alert, Oriented X3, Cooperative, mild distress Heart: Regular rate Lungs: Wheezing Abdomen: Soft Extremities: No cyanosis Labs Labs: Laboratory Tests Test 09/17/20 12:37 09/17/20 15:40 09/17/20 17:42 09/17/20 20:58 Glucose (Fingerstick) 124 mg/dL (70-99) 106 mg/dL (70-99) 123 mg/dL (70-99) Sodium Level 137 mmol/L (136-145) Potassium Level 4.5 mmol/L (3.5-5.1) Chloride Level 100 mmol/L (98-107) Carbon Dioxide Level 26 mmol/L (21-32) Anion Gap 11 (6-14) Blood Urea Nitrogen 25 mg/dL (8-26) Creatinine 1.3 mg/dL (0.7-1.3) Estimated GFR (Cockcroft-Gault) 54.9 Glucose Level 93 mg/dL (70-99) Calcium Level 9.8 mg/dL (8.5-10.1) Magnesium Level 2.1 mg/dL (1.8-2.4) Triglycerides Level 147 mg/dL (0-150) Cholesterol Level 163 mg/dL (0-200) LDL Cholesterol, Calculated 80 mg/dL (0-100) VLDL Cholesterol, Calculated 29 mg/dL (0-40) Non-HDL Cholesterol Calculated 109 mg/dL (0-129) HDL Cholesterol 54 mg/dL (40-60) Cholesterol/HDL Ratio 3.0 Thyroid Stimulating Hormone (TSH) 1.775 uIU/mL (0.358-3.74) Test 09/18/20 07:44 Glucose (Fingerstick) 118 mg/dL (70-99) Assessment and Plan Assessmemt and Plan Problems Medical Problems: (1) Acute on chronic diastolic (congestive) heart failure Status: Acute (2) Chest pain Status: Acute (3) Morbid obesity Status: Chronic (4) Respiratory distress Status: Acute Acute on chronic diastolic (congestive) heart failure Atrial flutter Acute hypertensive urgency Respiratory distress, acute due to pulmonary edema Morbid obesity Chest pain Possible COVID-19 CAD, Diabetes, Hypertension, Old myocardial infarction,pacemaker, cardiac stents, Plan Cardiac monitoring IV Lasix Home meds Serial enzymes or EKG DVT prophylaxis Full code I ordered some morphine Appreciate subspecialist input Comment Review of Relevant I have reviewed the following items ashwini (where applicable) has been applied. Medications: Current Medications Medications (Trade) Dose Ordered Sig/Lito Route PRN Reason Start Time Stop Time Status Last Admin Dose Admin Info (Anti-Coagulation Monitoring By Pharmacy) 1 each PRN DAILY PRN MC SEE COMMENTS 09/17/20 13:00 09/18/20 07:59 Bumetanide (Bumex) 1 mg 1X ONCE IV 09/17/20 13:30 09/17/20 13:31 DC 09/17/20 13:48 Bumetanide (Bumex) 1 mg DAILY PO 09/18/20 09:00 09/18/20 09:52 Justifications for Admission Other Justification RODRIGO TRAORE III DO Sep 18, 2020 09:57
[2020-09-18 11:00] VITALS: BP 155/72
--- NOTE | 2020-09-18 13:15 | PDOC ---
PROGRESS NOTES Date of Service DATE: 09/18/20 TIME: 13:12 Subjective Subjective Patient seen and evaluated Objective Objective Vital Signs Date Time Temp Pulse Resp B/P (MAP) Pulse Ox O2 Delivery O2 Flow Rate FiO2 09/18/20 11:00 98.1 60 18 155/72 (99) 98 Room Air 98.1 Intake and Output 09/18/20 07:00 Intake Total 1100 ml Output Total 2525 ml Balance -1425 ml Intake Oral 1100 ml Output Urine Total 2525 ml # Voids 1 Physical Exam Abdomen: Normal bowel sounds Heart: Regular rate General: No acute distress Lungs: Other (Slightly decreased breath sounds) Assessment Assessment Problems Medical Problems: (1) Acute on chronic diastolic (congestive) heart failure Status: Acute (2) Chest pain Status: Acute (3) Morbid obesity Status: Chronic (4) Respiratory distress Status: Acute Acute on chronic diastolic CHF: Improved. Recent ejection fraction was normal. Continue present treatment. HTN urgency: improved PAFIB: Episodes of atrial fib flutter up to 10 to 15 minutes earlier today. Now sinus. We will continue amiodarone. Chronic NOAC: eliquis for stroke prevention SSS with PPM in situ: [employer] with hx of tachy-rhina syndrome DM2/HLP CAD; past LCx/LAD stents. Recent MPI unremarkable, clinically stable Comment Review of Relevant I have reviewed the following items ashwini (where applicable) has been applied. Labs Laboratory Tests Test 09/16/20 13:44 09/16/20 16:20 09/16/20 17:43 09/16/20 20:51 White Blood Count 12.9 x10^3/uL (4.0-11.0) Red Blood Count 4.40 x10^6/uL (4.30-5.70) Hemoglobin 12.3 g/dL (13.0-17.5) Hematocrit 37.7 % (39.0-53.0) Mean Corpuscular Volume 86 fL (79-100) Mean Corpuscular Hemoglobin 28 pg (25-35) Mean Corpuscular Hemoglobin Concent 33 g/dL (31-37) Red Cell Distribution Width 15.8 % (11.5-14.5) Platelet Count 509 x10^3/uL (140-400) Neutrophils (%) (Auto) 76 % (31-73) Lymphocytes (%) (Auto) 13 % (24-48) Monocytes (%) (Auto) 10 % (0-9) Eosinophils (%) (Auto) 1 % (0-3) Basophils (%) (Auto) 1 % (0-3) Neutrophils # (Auto) 9.8 x10^3/uL (1.8-7.7) Lymphocytes # (Auto) 1.6 x10^3/uL (1.0-4.8) Monocytes # (Auto) 1.2 x10^3/uL (0.0-1.1) Eosinophils # (Auto) 0.1 x10^3/uL (0.0-0.7) Basophils # (Auto) 0.1 x10^3/uL (0.0-0.2) Sodium Level 138 mmol/L (136-145) Potassium Level 4.6 mmol/L (3.5-5.1) Chloride Level 104 mmol/L (98-107) Carbon Dioxide Level 24 mmol/L (21-32) Anion Gap 10 (6-14) Blood Urea Nitrogen 18 mg/dL (8-26) Creatinine 1.0 mg/dL (0.7-1.3) Estimated GFR (Cockcroft-Gault) 74.3 BUN/Creatinine Ratio 18 (6-20) Glucose Level 118 mg/dL (70-99) Calcium Level 9.6 mg/dL (8.5-10.1) Total Bilirubin 0.4 mg/dL (0.2-1.0) Aspartate Amino Transf (AST/SGOT) 14 U/L (15-37) Alanine Aminotransferase (ALT/SGPT) 31 U/L (16-63) Alkaline Phosphatase 81 U/L (46-116) Troponin I Quantitative < 0.017 ng/mL (0.000-0.055) < 0.017 ng/mL (0.000-0.055) GJ-Owt-Q-Type Natriuretic Peptide 584 pg/mL (0-124) Total Protein 7.9 g/dL (6.4-8.2) Albumin 3.4 g/dL (3.4-5.0) Albumin/Globulin Ratio 0.8 (1.0-1.7) Glucose (Fingerstick) 123 mg/dL (70-99) 96 mg/dL (70-99) Test 09/17/20 07:45 09/17/20 12:37 09/17/20 15:40 09/17/20 17:42 Glucose (Fingerstick) 128 mg/dL (70-99) 124 mg/dL (70-99) 106 mg/dL (70-99) Sodium Level 137 mmol/L (136-145) Potassium Level 4.5 mmol/L (3.5-5.1) Chloride Level 100 mmol/L (98-107) Carbon Dioxide Level 26 mmol/L (21-32) Anion Gap 11 (6-14) Blood Urea Nitrogen 25 mg/dL (8-26) Creatinine 1.3 mg/dL (0.7-1.3) Estimated GFR (Cockcroft-Gault) 54.9 Glucose Level 93 mg/dL (70-99) Calcium Level 9.8 mg/dL (8.5-10.1) Magnesium Level 2.1 mg/dL (1.8-2.4) Triglycerides Level 147 mg/dL (0-150) Cholesterol Level 163 mg/dL (0-200) LDL Cholesterol, Calculated 80 mg/dL (0-100) VLDL Cholesterol, Calculated 29 mg/dL (0-40) Non-HDL Cholesterol Calculated 109 mg/dL (0-129) HDL Cholesterol 54 mg/dL (40-60) Cholesterol/HDL Ratio 3.0 Thyroid Stimulating Hormone (TSH) 1.775 uIU/mL (0.358-3.74) Test 09/17/20 20:58 09/18/20 07:44 09/18/20 12:06 Glucose (Fingerstick) 123 mg/dL (70-99) 118 mg/dL (70-99) 117 mg/dL (70-99) Laboratory Tests Test 09/17/20 15:40 09/17/20 17:42 09/17/20 20:58 09/18/20 07:44 Sodium Level 137 mmol/L (136-145) Potassium Level 4.5 mmol/L (3.5-5.1) Chloride Level 100 mmol/L (98-107) Carbon Dioxide Level 26 mmol/L (21-32) Anion Gap 11 (6-14) Blood Urea Nitrogen 25 mg/dL (8-26) Creatinine 1.3 mg/dL (0.7-1.3) Estimated GFR (Cockcroft-Gault) 54.9 Glucose Level 93 mg/dL (70-99) Calcium Level 9.8 mg/dL (8.5-10.1) Magnesium Level 2.1 mg/dL (1.8-2.4) Triglycerides Level 147 mg/dL (0-150) Cholesterol Level 163 mg/dL (0-200) LDL Cholesterol, Calculated 80 mg/dL (0-100) VLDL Cholesterol, Calculated 29 mg/dL (0-40) Non-HDL Cholesterol Calculated 109 mg/dL (0-129) HDL Cholesterol 54 mg/dL (40-60) Cholesterol/HDL Ratio 3.0 Thyroid Stimulating Hormone (TSH) 1.775 uIU/mL (0.358-3.74) Glucose (Fingerstick) 106 mg/dL (70-99) 123 mg/dL (70-99) 118 mg/dL (70-99) Test 09/18/20 12:06 Glucose (Fingerstick) 117 mg/dL (70-99) Medications Current Medications Aspirin (Neonode Aspirin) 325 mg 1X ONCE PO Last administered on 09/16/20at 13:50; Start 09/16/20 at 13:30; Stop 09/16/20 at 13:31; Status DC Furosemide (Lasix) 40 mg 1X ONCE IVP Last administered on 09/16/20at 15:39; Start 09/16/20 at 15:30; Stop 09/16/20 at 15:31; Status DC Nitroglycerin (Nitrostat) 0.4 mg PRN Q5MIN PRN SL CHEST PAIN Last administered on 09/16/20at 15:48; Start 09/16/20 at 15:30 Morphine Sulfate (Morphine Sulfate) 4 mg 1X ONCE IV Last administered on 09/16/20at 15:47; Start 09/16/20 at 15:45; Stop 09/16/20 at 15:46; Status DC Ondansetron HCl (Zofran) 4 mg 1X ONCE IVP Last administered on 09/16/20at 15:47; Start 09/16/20 at 15:45; Stop 09/16/20 at 15:46; Status DC Amiodarone HCl (Cordarone) 200 mg DAILY PO Last administered on 09/18/20at 09:52; Start 09/17/20 at 09:00 Apixaban (Eliquis) 5 mg BID PO Last administered on 09/18/20 09:52; Start 09/16/20 at 21:00 Aspirin (Ecotrin) 81 mg DAILY PO Last administered on 09/18/20 09:52; Start 09/17/20 at 09:00 Atorvastatin Calcium (Lipitor) 40 mg HS PO Last administered on 09/17/20at 20:56; Start 09/16/20 at 21:00 Famotidine (Pepcid) 20 mg BID PO Last administered on 09/18/20 09:51; Start 09/16/20 at 21:00 Fenofibrate (Lofibra) 134 mg DAILY PO Last administered on 09/17/20at 08:45; Start 09/17/20 at 09:00 Metformin HCl (Glucophage) 500 mg BIDWMEALS PO Last administered on 09/18/20 09:52; Start 09/16/20 at 17:00 Methocarbamol (Robaxin) 500 mg TID PRN PRN PO PAIN; Start 09/16/20 at 16:00; Stop 09/16/20 at 16:05; Status DC Metoprolol Tartrate (Lopressor) 25 mg BID PO Last administered on 09/18/20 09:53; Start 09/16/20 at 21:00 Potassium Chloride (Klor-Con) 20 meq DAILY PO Last administered on 09/18/20 09:51; Start 09/17/20 at 09:00 Insulin Human Lispro (HumaLOG) 15 units TIDWMEALS SQ Last administered on 10:42; Start 09/16/20 at 17:00 Furosemide (Lasix) 40 mg BID92 PO Last administered on 09/17/20at 08:44; Start 09/17/20 at 09:00; Stop 09/17/20 at 13:08; Status DC Methocarbamol (Robaxin) 750 mg TID PRN PRN PO MUSCLE SPASMS; Start 09/16/20 at 16:15 Acetaminophen/ Hydrocodone Bitart (Lortab 7.5/325) 1 tab PRN Q6HRS PRN PO MODERATE TO SEVERE PAIN Last administered on 09/18/20 09:57; Start 09/16/20 at 20:15 Insulin Human Lispro (HumaLOG) 0-5 UNITS TIDWMEALS SQ ; Start 09/17/20 at 08:00 Dextrose (Dextrose 50%-Water Syringe) 12.5 gm PRN Q15MIN PRN IV SEE COMMENTS; Start 09/16/20 at 20:15 Polyethylene Glycol (miraLAX PACKET) 17 gm PRN DAILY PRN PO CONSTIPATION; Start 09/17/20 at 09:00 Info (Anti-Coagulation Monitoring By Pharmacy) 1 each PRN DAILY PRN MC SEE COMMENTS Last administered on 09/18/20at 07:59; Start 09/17/20 at 13:00 Bumetanide (Bumex) 1 mg 1X ONCE IV Last administered on 09/17/20at 13:48; Start 09/17/20 at 13:30; Stop 09/17/20 at 13:31; Status DC Bumetanide (Bumex) 1 mg DAILY PO Last administered on 09/18/20at 09:52; Start 09/18/20 at 09:00 Morphine Sulfate (Morphine Sulfate) 2 mg PRN Q2HR PRN IV PAIN; Start 09/18/20 at 10:00 Active Scripts Active Klor-Con M20 (Potassium Chloride) 20 Meq Tab.er.prt 1 Tab PO DAILY 30 Days Metoprolol Tartrate 25 Mg Tablet 1 Tab PO BID Metformin Hcl 500 Mg Tablet 500 Mg PO BIDWMEALS 30 Days Eliquis (Apixaban) 5 Mg Tablet 5 Mg PO BID 30 Days Reported Famotidine 20 Mg Tablet 20 Mg PO BID Novolog Flexpen (Insulin Aspart) 100 Unit/1 Ml Insuln.pen 15 Unit SQ TIDBFRMEAL Robaxin-750 (Methocarbamol) 750 Mg Tablet 500 Mg PO TID PRN PRN Hydrocodone-Apap 7.5-325 (Hydrocodone Bit/Acetaminophen) 1 Tab Tablet 1 Tab PO PRN Q6HRS PRN Aspir 81 (Aspirin) 81 Mg Tablet.dr 81 Mg PO DAILY Fenofibrate (Fenofibrate,Micronized) 134 Mg Capsule 134 Mg PO DAILY Atorvastatin Calcium 40 Mg Tablet 40 Mg PO HS Amiodarone Hcl 200 Mg Tablet 200 Mg PO DAILY Vitals/I & O Vital Sign - Last 24 Hours 09/17/20 09/17/20 09/17/20 09/17/20 15:00 19:12 19:50 20:56 Temp 97.9 97.3 97.9 97.3 Pulse 90 98 98 Resp 22 18 B/P (MAP) 170/72 (104) 145/70 (95) 145/70 Pulse Ox 97 97 O2 Delivery Room Air Room Air Room Air 09/17/20 09/17/20 09/17/20 09/18/20 20:56 21:56 23:12 03:03 Temp 97.5 97.5 Pulse 73 Resp 18 B/P (MAP) 137/64 (88) Pulse Ox 97 97 98 98 O2 Delivery Room Air Room Air Room Air Room Air 09/18/20 09/18/20 09/18/20 09/18/20 03:07 04:03 07:00 09:52 Temp 96.2 95.9 96.2 95.9 Pulse 97 77 77 Resp 18 18 B/P (MAP) 112/68 (83) 102/79 (87) 102/79 Pulse Ox 99 99 90 O2 Delivery Room Air Room Air Room Air 09/18/20 09/18/20 09/18/20 09:53 09:57 11:00 Temp 98.1 98.1 Pulse 77 60 Resp 18 B/P (MAP) 102/79 155/72 (99) Pulse Ox 90 98 O2 Delivery Room Air Room Air Intake and Output 09/17/20 09/17/20 09/18/20 15:00 23:00 07:00 Intake Total 450 ml 300 ml 350 ml Output Total 950 ml 1100 ml 475 ml Balance -500 ml -800 ml -125 ml Justifications for Admission Other Justification KAREN LOCKWOOD MD Sep 18, 2020 13:15
[2020-09-18] MEDS: FENOFIBRATE,MICRONIZED 134 MG CAPSULE PO SCH (14:15)
[2020-09-18 15:00] VITALS: BP 135/65
[2020-09-18] MEDS ORDERED: ONDANSETRON PF 4 MG/2 ML VIAL. IV ONE (17:15)
[2020-09-18 19:00] VITALS: BP 144/65
[2020-09-18] MEDS: ATORVASTATIN CALCIUM 40 MG TABLET. PO SCH (21:28)
[2020-09-18 23:02] VITALS: BP 121/60
[2020-09-19] MEDS: HYDROcodone/APAP 7.5/325MG 1 TAB TABLET PO PRN ×4 (01:55→21:50)
[2020-09-19 03:28] VITALS: BP 141/61
[2020-09-19 07:00] VITALS: BP 145/62
[2020-09-19] MEDS: INSULIN LISPRO 300 UNITS/3 ML VIAL. SQ SCH ×6 (08:00→17:00)
[2020-09-19] MEDS: BUMETANIDE 1 MG TABLET. PO SCH (08:09)
[2020-09-19] MEDS: metFORMIN 500 MG TABLET PO SCH ×2 (08:09→17:56)
[2020-09-19] MEDS: ASPIRIN ENTERIC COATED 81 MG TABLET.DR. PO SCH (08:09)
[2020-09-19] MEDS: FENOFIBRATE,MICRONIZED 134 MG CAPSULE PO SCH (08:10)
[2020-09-19] MEDS: METOPROLOL TART IMMED RELEASE 25 MG TABLET. PO SCH ×2 (08:10→20:16)
[2020-09-19] MEDS: APIXABAN 5 MG TABLET. PO SCH ×2 (08:10→20:16)
[2020-09-19] MEDS: POTASSIUM CHLORIDE 20 MEQ TABLET.ER. PO SCH (08:11)
[2020-09-19] MEDS: FAMOTIDINE 20 MG TABLET. PO SCH ×2 (09:28→20:16)
[2020-09-19] MEDS: AMIODARONE HCL 200 MG TABLET. PO SCH (09:28)
--- NOTE | 2020-09-19 10:43 | PDOC ---
[facility] PROGRESS NOTE Date of Service DOS: DATE: 09/19/20 TIME: 10:42 Chief Complaint Chief Complaint Acute on chronic diastolic (congestive) heart failure Atrial flutter Acute hypertensive urgency Respiratory distress, acute due to pulmonary edema Morbid obesity Chest pain Possible COVID-19 CAD, Diabetes, Hypertension, Old myocardial infarction,pacemaker, cardiac stents, History of Present Illness History of Present Illness 09/19/2020 Patient seen and examined Chart reviewed Discussed with RN 09/18/2020 Patient seen and examined Discussed with RN Chart reviewed Identification/Chief Complaint Chief Complaint SEEN IN ER WITH ACUTE CHF, 70-year-old male who arrives with ambulatory to the 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 Patient reports he has been developing progressive shortness of air which has progressed to bother him at rest. Patient also reports to some substernal chest pain which developed earlier today however that has since dissipated. The patient however states that he does have it is also history which includes hypertension as well as congestive heart failure and is able to speak in broken sentences. Despite his symptoms he denies any history of coronavirus exposures. Specifically he denies any cough or fever. He is awake, alert and ill- appearing. Past Medical History Past Medical History Past Medical History Past Medical History: CAD, CHF, Diabetes-Type II, High Cholesterol, Hypertensi on, [place] Past Surgical History: Cholecystectomy, Pacemaker, Other Additional Past Surgical Histo: Cardiac stent, ROTATAR CUFF, HERNIA Smoking Status: Former Smoker Alcohol Use: None Drug Use: None FHX COPD, OBESITY Cardiovascular: AFIB, CAD, CHF, HTN, Hyperlipidemia, Other Pulmonary: No pertinent hx GI: No pertinent hx Psych: No pertinent hx Musculoskeletal: low back pain, Osteoarthritis Renal/: Chronic renal insuff, Benign prostatic enlarg., Other Endocrine: No pertinent hx Past Surgical History Past Surgical History: Pacemaker, Arthroscopy, Cholecystectomy, Hernia Repair, Other Family History Family History: Chronic Bronchitis, Heart Disease, High Cholestrol Social History Smoke: No ALCOHOL: none Drugs: None Current Problem List Problem List Problems Medical Problems: (1) Acute on chronic diastolic (congestive) heart failure Status: Acute (2) Chest pain Status: Acute (3) Morbid obesity Status: Chronic (4) Respiratory distress Status: Acute Vitals/I&O Vitals/I&O: Vital Signs Date Time Temp Pulse Resp B/P (MAP) Pulse Ox O2 Delivery O2 Flow Rate FiO2 1/2/21 09:28 96 151/94 09/19/20 09:12 100 Room Air 09/19/20 03:28 98.2 18 98.2 I & O 09/18/20 09/18/20 09/19/20 15:00 23:00 07:00 Intake Total 300 ml 400 ml Output Total 1000 ml 750 ml 200 ml Balance -1000 ml -450 ml 200 ml Physical Exam Physical Exam: HENT: Normocephalic, atraumatic, bilateral external ears normal, oropharynx moist, no oral exudates, nose normal. [] Eyes: PERRLA, EOMI, conjunctiva normal, no discharge. [] Neck: Normal range of motion, no tenderness, supple, no stridor. [] Cardiovascular:Heart rate regular rhythm, no murmur [] Lungs & Thorax: Subtle crackles bilaterally with diminished breath sounds. Abdomen: Bowel sounds normal, soft, no tenderness, no masses, no pulsatile masses. [] Skin: Warm, dry, no erythema, no rash. [] Back: No tenderness, no CVA tenderness. [] Extremities: Patient has peripheral edema which appears to be chronic in nature. No tenderness, no cyanosis, no clubbing, ROM intact, Neurologic: Alert and oriented X 3, normal motor function, normal sensory functi on, no focal deficits noted. [] Psychologic: Affect normal, judgment normal, mood normal. [] General: Alert, Oriented X3, Cooperative, mild distress HEENT: Atraumatic, EOMI Heart: RRR, no thrills Breasts: Not examined Abdomen: Soft Rectal Exam: not examined Extremities: No cyanosis Neuro: Normal speech, Cranial nerves 3-12 NL Psych/Mental Status: Mental status NL, Mood NL General: No acute distress Heart: Regular rate Lungs: Wheezing Abdomen: Normal bowel sounds Extremities: No cyanosis Labs Labs: Laboratory Tests Test 09/18/20 12:06 09/18/20 17:02 09/18/20 21:00 09/19/20 09:04 Glucose (Fingerstick) 117 mg/dL (70-99) 100 mg/dL (70-99) 100 mg/dL (70-99) 129 mg/dL (70-99) Assessment and Plan Assessmemt and Plan Problems Medical Problems: (1) Acute on chronic diastolic (congestive) heart failure Status: Acute (2) Chest pain Status: Acute (3) Morbid obesity Status: Chronic (4) Respiratory distress Status: Acute Acute on chronic diastolic (congestive) heart failure Atrial flutter Acute hypertensive urgency Respiratory distress, acute due to pulmonary edema Morbid obesity Chest pain Possible COVID-19 CAD, Diabetes, Hypertension, Old myocardial infarction,pacemaker, cardiac stents, Chronic anticoagulation Permanent pacemaker Plan Continue cardiac monitoring IV Lasix Home meds Serial enzymes or EKG DVT prophylaxis Full code I ordered some morphine Appreciate subspecialist input Per cardiology continue amiodarone and Eliquis Comment Review of Relevant I have reviewed the following items ashwini (where applicable) has been applied. Medications: Current Medications Medications (Trade) Dose Ordered Sig/Lito Route PRN Reason Start Time Stop Time Status Last Admin Dose Admin Ondansetron HCl (Zofran) 4 mg 1X ONCE IV 09/18/20 17:15 09/18/20 17:16 DC 09/18/20 17:15 Justifications for Admission Other Justification RODRIGO TRAORE III DO Sep 19, 2020 10:43
[2020-09-19 11:00] VITALS: BP 140/63
[2020-09-19] MEDS ORDERED: ONDANSETRON ODT 4 MG TAB.RAPDIS. PO PRN (11:45)
[2020-09-19] MEDS: MORPHINE SULFATE 2 MG/ML VIAL. IV PRN (12:12)
[2020-09-19 15:00] VITALS: BP 142/65
--- NOTE | 2020-09-19 16:43 | PDOC ---
PROGRESS NOTES Date of Service DATE: 09/19/20 TIME: 16:41 Subjective Subjective Patient seen and examined Objective Objective Vital Signs Date Time Temp Pulse Resp B/P (MAP) Pulse Ox O2 Delivery O2 Flow Rate FiO2 09/19/20 15:00 96.7 65 16 142/65 (90) 96 Room Air 96.7 Intake and Output 09/19/20 07:00 Intake Total 700 ml Output Total 1950 ml Balance -1250 ml Intake Oral 700 ml Output Urine Total 1950 ml Physical Exam Abdomen: Normal bowel sounds Heart: Regular rate General: mild distress Lungs: Other (Mildly decreased breath sounds) Assessment Assessment Problems Medical Problems: (1) Acute on chronic diastolic (congestive) heart failure Status: Acute (2) Chest pain Status: Acute (3) Morbid obesity Status: Chronic (4) Respiratory distress Status: Acute Acute on chronic diastolic CHF: Continued improvement. Recent ejection fraction was normal. Continue present treatment. HTN urgency: Resolved. Continue present medical treatment. Improved PAFIB: Now sinus. We will continue amiodarone. Chronic NOAC: eliquis for stroke prevention SSS with PPM in situ: Recurvetronic with hx of tachy-rhina syndrome DM2/HLP CAD; past LCx/LAD stents. Recent MPI unremarkable, clinically stable Comment Review of Relevant I have reviewed the following items ashwini (where applicable) has been applied. Labs Laboratory Tests Test 09/17/20 17:42 09/17/20 20:58 09/18/20 07:44 09/18/20 12:06 Glucose (Fingerstick) 106 mg/dL (70-99) 123 mg/dL (70-99) 118 mg/dL (70-99) 117 mg/dL (70-99) Test 09/18/20 17:02 09/18/20 21:00 09/19/20 09:04 09/19/20 12:10 Glucose (Fingerstick) 100 mg/dL (70-99) 100 mg/dL (70-99) 129 mg/dL (70-99) 113 mg/dL (70-99) Laboratory Tests Test 09/18/20 17:02 09/18/20 21:00 09/19/20 09:04 09/19/20 12:10 Glucose (Fingerstick) 100 mg/dL (70-99) 100 mg/dL (70-99) 129 mg/dL (70-99) 113 mg/dL (70-99) Medications Current Medications Aspirin (Hiram Aspirin) 325 mg 1X ONCE PO Last administered on 09/16/20at 13:50; Start 09/16/20 at 13:30; Stop 09/16/20 at 13:31; Status DC Furosemide (Lasix) 40 mg 1X ONCE IVP Last administered on 09/16/20at 15:39; Start 09/16/20 at 15:30; Stop 09/16/20 at 15:31; Status DC Nitroglycerin (Nitrostat) 0.4 mg PRN Q5MIN PRN SL CHEST PAIN Last administered on 09/16/20at 15:48; Start 09/16/20 at 15:30 Morphine Sulfate (Morphine Sulfate) 4 mg 1X ONCE IV Last administered on 09/16/20at 15:47; Start 09/16/20 at 15:45; Stop 09/16/20 at 15:46; Status DC Ondansetron HCl (Zofran) 4 mg 1X ONCE IVP Last administered on 09/16/20at 15:47; Start 09/16/20 at 15:45; Stop 09/16/20 at 15:46; Status DC Amiodarone HCl (Cordarone) 200 mg DAILY PO Last administered on 09/19/20 09:28; Start 09/17/20 at 09:00 Apixaban (Eliquis) 5 mg BID PO Last administered on 09/19/20 08:10; Start 09/16/20 at 21:00 Aspirin (Ecotrin) 81 mg DAILY PO Last administered on 09/19/20 08:09; Start 09/17/20 at 09:00 Atorvastatin Calcium (Lipitor) 40 mg HS PO Last administered on 09/18/20 21:28; Start 09/16/20 at 21:00 Famotidine (Pepcid) 20 mg BID PO Last administered on 09/19/20 09:28; Start 09/16/20 at 21:00 Fenofibrate (Lofibra) 134 mg DAILY PO Last administered on 09/19/20 08:10; Start 09/17/20 at 09:00 Metformin HCl (Glucophage) 500 mg BIDWMEALS PO Last administered on 09/19/20 08:09; Start 09/16/20 at 17:00 Methocarbamol (Robaxin) 500 mg TID PRN PRN PO PAIN; Start 09/16/20 at 16:00; Stop 09/16/20 at 16:05; Status DC Metoprolol Tartrate (Lopressor) 25 mg BID PO Last administered on 09/19/20 08:10; Start 09/16/20 at 21:00 Potassium Chloride (Klor-Con) 20 meq DAILY PO Last administered on 09/19/20 08:11; Start 09/17/20 at 09:00 Insulin Human Lispro (HumaLOG) 15 units TIDWMEALS SQ Last administered on 09/19/20 12:22; Start 09/16/20 at 17:00 Furosemide (Lasix) 40 mg BID92 PO Last administered on 09/17/20at 08:44; Start 09/17/20 at 09:00; Stop 09/17/20 at 13:08; Status DC Methocarbamol (Robaxin) 750 mg TID PRN PRN PO MUSCLE SPASMS; Start 09/16/20 at 16:15 Acetaminophen/ Hydrocodone Bitart (Lortab 7.5/325) 1 tab PRN Q6HRS PRN PO MODERATE TO SEVERE PAIN Last administered on 09/19/20 08:12; Start 09/16/20 at 20:15 Insulin Human Lispro (HumaLOG) 0-5 UNITS TIDWMEALS SQ ; Start 09/17/20 at 08:00 Dextrose (Dextrose 50%-Water Syringe) 12.5 gm PRN Q15MIN PRN IV SEE COMMENTS; Start 09/16/20 at 20:15 Polyethylene Glycol (miraLAX PACKET) 17 gm PRN DAILY PRN PO CONSTIPATION; Start 09/17/20 at 09:00 Info (Anti-Coagulation Monitoring By Pharmacy) 1 each PRN DAILY PRN MC SEE COMMENTS Last administered on 09/18/20at 07:59; Start 09/17/20 at 13:00 Bumetanide (Bumex) 1 mg 1X ONCE IV Last administered on 09/17/20at 13:48; Start 09/17/20 at 13:30; Stop 09/17/20 at 13:31; Status DC Bumetanide (Bumex) 1 mg DAILY PO Last administered on 09/19/20 08:09; Start 09/18/20 at 09:00 Morphine Sulfate (Morphine Sulfate) 2 mg PRN Q2HR PRN IV PAIN Last administered on 09/19/20at 12:12; Start 09/18/20 at 10:00 Ondansetron HCl (Zofran) 4 mg 1X ONCE IV Last administered on 09/18/20at 17:15; Start 09/18/20 at 17:15; Stop 09/18/20 at 17:16; Status DC Ondansetron HCl (Zofran Odt) 4 mg PRN Q6HRS PRN PO NAUSEA/VOMITING Last administered on 09/19/20at 12:10; Start 09/19/20 at 11:45 Active Scripts Active Klor-Con M20 (Potassium Chloride) 20 Meq Tab.er.prt 1 Tab PO DAILY 30 Days Metoprolol Tartrate 25 Mg Tablet 1 Tab PO BID Metformin Hcl 500 Mg Tablet 500 Mg PO BIDWMEALS 30 Days Eliquis (Apixaban) 5 Mg Tablet 5 Mg PO BID 30 Days Reported Famotidine 20 Mg Tablet 20 Mg PO BID Novolog Flexpen (Insulin Aspart) 100 Unit/1 Ml Insuln.pen 15 Unit SQ TIDBFRMEAL Robaxin-750 (Methocarbamol) 750 Mg Tablet 500 Mg PO TID PRN PRN Hydrocodone-Apap 7.5-325 (Hydrocodone Bit/Acetaminophen) 1 Tab Tablet 1 Tab PO PRN Q6HRS PRN Aspir 81 (Aspirin) 81 Mg Tablet.dr 81 Mg PO DAILY Fenofibrate (Fenofibrate,Micronized) 134 Mg Capsule 134 Mg PO DAILY Atorvastatin Calcium 40 Mg Tablet 40 Mg PO HS Amiodarone Hcl 200 Mg Tablet 200 Mg PO DAILY Vitals/I & O Vital Sign - Last 24 Hours 09/18/20 09/18/20 09/18/20 09/18/20 17:08 18:08 19:00 20:13 Temp 98.3 98.3 Pulse 66 Resp 18 B/P (MAP) 144/65 (91) Pulse Ox 98 98 98 O2 Delivery Room Air Room Air Room Air Room Air 09/18/20 09/18/20 09/18/20 09/18/20 21:28 21:28 22:28 23:02 Temp 98.7 98.7 Pulse 66 59 Resp 18 18 18 B/P (MAP) 144/65 121/60 (80) Pulse Ox 98 97 O2 Delivery Room Air Room Air 09/19/20 09/19/20 09/19/20 09/19/20 01:55 02:55 03:28 07:00 Temp 98.2 97.6 98.2 97.6 Pulse 62 64 Resp 20 18 18 18 B/P (MAP) 141/61 (87) 145/62 (89) Pulse Ox 100 94 O2 Delivery Room Air Room Air Room Air 09/19/20 09/19/20 09/19/20 09/19/20 08:00 08:10 08:12 09:12 Pulse 62 B/P (MAP) 141/61 Pulse Ox 100 100 O2 Delivery Room Air Room Air Room Air 09/19/20 09/19/20 09/19/20 09/19/20 09:28 11:00 12:12 12:42 Temp 96.5 96.5 Pulse 96 90 Resp 18 B/P (MAP) 151/94 140/63 (88) Pulse Ox 100 100 100 O2 Delivery Room Air Room Air Room Air 09/19/20 15:00 Temp 96.7 96.7 Pulse 65 Resp 16 B/P (MAP) 142/65 (90) Pulse Ox 96 O2 Delivery Room Air Intake and Output 09/18/20 09/18/20 09/19/20 15:00 23:00 07:00 Intake Total 300 ml 400 ml Output Total 1000 ml 750 ml 200 ml Balance -1000 ml -450 ml 200 ml Justifications for Admission Other Justification KAREN LOCKWOOD MD Sep 19, 2020 16:43
[2020-09-19 19:02] VITALS: BP 150/69
[2020-09-19] MEDS: METHOCARBAMOL 750 MG TABLET PO PRN (20:16)
[2020-09-19] MEDS: ATORVASTATIN CALCIUM 40 MG TABLET. PO SCH (20:16)
[2020-09-19 23:58] VITALS: BP 132/69
[2020-09-20 03:05] VITALS: BP 149/79
[2020-09-20] MEDS: HYDROcodone/APAP 7.5/325MG 1 TAB TABLET PO PRN ×3 (03:45→19:39)
[2020-09-20] MEDS: METHOCARBAMOL 750 MG TABLET PO PRN ×3 (03:45→20:46)
[2020-09-20 06:23] VITALS: BP 131/72
[2020-09-20] MEDS: ASPIRIN ENTERIC COATED 81 MG TABLET.DR. PO SCH (07:37)
[2020-09-20] MEDS: FENOFIBRATE,MICRONIZED 134 MG CAPSULE PO SCH (07:38)
[2020-09-20] MEDS: BUMETANIDE 1 MG TABLET. PO SCH (07:38)
[2020-09-20] MEDS: metFORMIN 500 MG TABLET PO SCH ×2 (07:38→17:04)
[2020-09-20] MEDS: FAMOTIDINE 20 MG TABLET. PO SCH ×2 (07:39→20:46)
[2020-09-20] MEDS: METOPROLOL TART IMMED RELEASE 25 MG TABLET. PO SCH ×2 (07:39→20:47)
[2020-09-20] MEDS: POTASSIUM CHLORIDE 20 MEQ TABLET.ER. PO SCH (07:40)
[2020-09-20] MEDS: APIXABAN 5 MG TABLET. PO SCH ×2 (07:40→20:47)
[2020-09-20] MEDS: AMIODARONE HCL 200 MG TABLET. PO SCH (07:46)
[2020-09-20] MEDS: INSULIN LISPRO 300 UNITS/3 ML VIAL. SQ SCH ×6 (07:53→17:07)
[2020-09-20] MEDS: MORPHINE SULFATE 2 MG/ML VIAL. IV PRN ×2 (07:55→20:47)
[2020-09-20 11:00] VITALS: BP 119/57
--- NOTE | 2020-09-20 12:05 | PDOC ---
PROGRESS NOTES Date of Service: DATE: 09/20/20 TIME: 12:04 Chief Complaint Chief Complaint impression Acute on chronic diastolic (congestive) heart failure Atrial flutter Now sinus. continue amiodarone. 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 Patient reports he mccauley s been developing progressive shortness of air which has progressed to bother him at rest. Patient also reports to some substernal chest pain which developed earlier today however that has since dissipated. The patient however states that he does have it is also history which includes hypertension as well as congestive heart failure and is able to speak in broken sentences. Despite his symptoms he denies any history of coronavirus exposures. Specifically he denies any cough or fever. He is awake, alert and ill- appearing. Past Medical History Past Medical History Past Medical History Past Medical History: CAD, CHF, Diabetes-Type II, High Cholesterol, Hypertension, SC Past Surgical History: Cholecystectomy, Pacemaker, Other Additional Past Surgical Histo: Cardiac stent, ROTATAR CUFF, HERNIA Smoking Status: Former Smoker Alcohol Use: None Drug Use: None FHX COPD, OBESITY Cardiovascular: AFIB, CAD, CHF, HTN, Hyperlipidemia, Other Pulmonary: No pertinent hx GI: No pertinent hx Psych: No pertinent hx Musculoskeletal: low back pain, Osteoarthritis Renal/: Chronic renal insuff, Benign prostatic enlarg., Other Endocrine: No pertinent hx Past Surgical History Past Surgical History: Pacemaker, Arthroscopy, Cholecystectomy, Hernia Repair, Other Family History Family History: Chronic Bronchitis, Heart Disease, High Cholestrol Social History Smoke: No ALCOHOL: none Drugs: None Current Problem List Problem List Problems Medical Problems: (1) Acute on chronic diastolic (congestive) heart failure Status: Acute (2) Chest pain Status: Acute (3) Morbid obesity Status: Chronic (4) Respiratory distress Status: Acute Vitals Vitals Vital Signs Date Time Temp Pulse Resp B/P (MAP) Pulse Ox O2 Delivery O2 Flow Rate FiO2 09/20/20 08:25 94 Room Air 09/20/20 07:46 79 131/72 09/20/20 06:23 98.7 16 98.7 Physical Exam Physical Exam HENT: Normocephalic, atraumatic, bilateral external ears normal, oropharynx moist, no oral exudates, nose normal. [] Eyes: PERRLA, EOMI, conjunctiva normal, no discharge. [] Neck: Normal range of motion, no tenderness, supple, no stridor. [] Cardiovascular:Heart rate regular rhythm, no murmur [] Lungs & Thorax: Subtle crackles bilaterally with diminished breath sounds. Abdomen: Bowel sounds normal, soft, no tenderness, no masses, no pulsatile masses. [] Skin: Warm, dry, no erythema, no rash. [] Back: No tenderness, no CVA tenderness. [] Extremities: Patient has peripheral edema which appears to be chronic in nature. No tenderness, no cyanosis, no clubbing, ROM intact, Neurologic: Alert and oriented X 3, normal motor function, normal sensory function, no focal deficits noted. [] Psychologic: Affect normal, judgment normal, mood normal. [] General: Alert, Oriented X3, Cooperative, mild distress HEENT: Atraumatic, EOMI Heart: RRR, no thrills Breasts: Not examined Abdomen: Soft Rectal Exam: not examined Extremities: No cyanosis Neuro: Normal speech, Cranial nerves 3-12 NL Psych/Mental Status: Mental status NL, Mood NL General: Cooperative, mild distress Heart: Regular rate Lungs: Wheezing Abdomen: Normal bowel sounds Extremities: No cyanosis Labs LABS Examination: XR CHEST 1V History: Reason: Shortness of air / Spl. Instructions: / History: Comparison/Correlation: 09/04/2020 Findings: Portable upright frontal view of the chest was obtained. Dual lead left-sided pacemaker is present. Heart size is within upper limits of normal. Pulmonary vasculature is mildly congested. No pneumothorax. No definite infiltr ate although evaluation of the left lung base is limited due to underpenetrated technique and patient body habitus. No definite finding of pleural effusion. No acute bony process. Impression: Mild pulmonary vasculature congestion. Electronically signed by: Dontae Barber MD (09/16/2020 1:49 PM) [id number] DICTATED and SIGNED BY: DONTAE BARBER MD Laboratory Tests Test 09/19/20 12:10 09/19/20 18:02 09/19/20 20:23 09/20/20 07:51 Glucose (Fingerstick) 113 mg/dL (70-99) 108 mg/dL (70-99) 118 mg/dL (70-99) 131 mg/dL (70-99) Assessment and Plan Assessmemt and Plan Problems Medical Problems: (1) Acute on chronic diastolic (congestive) heart failure Status: Acute (2) Chest pain Status: Acute (3) Morbid obesity Status: Chronic (4) Respiratory distress Status: Acute Comment Review of Relevant I have reviewed the following items ashwini (where applicable) has been applied. Labs Laboratory Tests Test 09/18/20 12:06 09/18/20 17:02 09/18/20 21:00 09/19/20 09:04 Glucose (Fingerstick) 117 mg/dL (70-99) 100 mg/dL (70-99) 100 mg/dL (70-99) 129 mg/dL (70-99) Test 09/19/20 12:10 09/19/20 18:02 09/19/20 20:23 09/20/20 07:51 Glucose (Fingerstick) 113 mg/dL (70-99) 108 mg/dL (70-99) 118 mg/dL (70-99) 131 mg/dL (70-99) Laboratory Tests Test 09/19/20 12:10 09/19/20 18:02 09/19/20 20:23 09/20/20 07:51 Glucose (Fingerstick) 113 mg/dL (70-99) 108 mg/dL (70-99) 118 mg/dL (70-99) 131 mg/dL (70-99) Medications Current Medications Aspirin (Hiram Aspirin) 325 mg 1X ONCE PO Last administered on 09/16/20at 13:50; Start 09/16/20 at 13:30; Stop 09/16/20 at 13:31; Status DC Furosemide (Lasix) 40 mg 1X ONCE IVP Last administered on 09/16/20at 15:39; Start 09/16/20 at 15:30; Stop 09/16/20 at 15:31; Status DC Nitroglycerin (Nitrostat) 0.4 mg PRN Q5MIN PRN SL CHEST PAIN Last administered on 09/16/20at 15:48; Start 09/16/20 at 15:30 Morphine Sulfate (Morphine Sulfate) 4 mg 1X ONCE IV Last administered on 09/16/20at 15:47; Start 09/16/20 at 15:45; Stop 09/16/20 at 15:46; Status DC Ondansetron HCl (Zofran) 4 mg 1X ONCE IVP Last administered on 09/16/20at 15:47; Start 09/16/20 at 15:45; Stop 09/16/20 at 15:46; Status DC Amiodarone HCl (Cordarone) 200 mg DAILY PO Last administered on 09/20/20 07:46; Start 09/17/20 at 09:00 Apixaban (Eliquis) 5 mg BID PO Last administered on 09/20/20 07:40; Start 09/16/20 at 21:00 Aspirin (Ecotrin) 81 mg DAILY PO Last administered on 09/20/20 07:37; Start 09/17/20 at 09:00 Atorvastatin Calcium (Lipitor) 40 mg HS PO Last administered on 09/19/20 20:16; Start 09/16/20 at 21:00 Famotidine (Pepcid) 20 mg BID PO Last administered on 09/20/20 07:39; Start 09/16/20 at 21:00 Fenofibrate (Lofibra) 134 mg DAILY PO Last administered on 09/20/20 07:38; Start 09/17/20 at 09:00 Metformin HCl (Glucophage) 500 mg BIDWMEALS PO Last administered on 09/20/20 07:38; Start 09/16/20 at 17:00 Methocarbamol (Robaxin) 500 mg TID PRN PRN PO PAIN; Start 09/16/20 at 16:00; Stop 09/16/20 at 16:05; Status DC Metoprolol Tartrate (Lopressor) 25 mg BID PO Last administered on 09/20/20 07:39; Start 09/16/20 at 21:00 Potassium Chloride (Klor-Con) 20 meq DAILY PO Last administered on 09/20/20 07:40; Start 12/31/20 at 09:00 Insulin Human Lispro (HumaLOG) 15 units TIDWMEALS SQ Last administered on 09/20/20 08:01; Start 09/16/20 at 17:00 Furosemide (Lasix) 40 mg BID92 PO Last administered on 09/17/20at 08:44; Start 09/17/20 at 09:00; Stop 09/17/20 at 13:08; Status DC Methocarbamol (Robaxin) 750 mg TID PRN PRN PO MUSCLE SPASMS Last administered on 09/20/20 07:45; Start 09/16/20 at 16:15 Acetaminophen/ Hydrocodone Bitart (Lortab 7.5/325) 1 tab PRN Q6HRS PRN PO MODERATE TO SEVERE PAIN Last administered on 09/20/20 03:45; Start 09/16/20 at 20:15 Insulin Human Lispro (HumaLOG) 0-5 UNITS TIDWMEALS SQ ; Start 09/17/20 at 08:00 Dextrose (Dextrose 50%-Water Syringe) 12.5 gm PRN Q15MIN PRN IV SEE COMMENTS; Start 09/16/20 at 20:15 Polyethylene Glycol (miraLAX PACKET) 17 gm PRN DAILY PRN PO CONSTIPATION; Start 09/17/20 at 09:00 Info (Anti-Coagulation Monitoring By Pharmacy) 1 each PRN DAILY PRN MC SEE COMMENTS Last administered on 09/18/20 07:59; Start 09/17/20 at 13:00 Bumetanide (Bumex) 1 mg 1X ONCE IV Last administered on 09/17/20at 13:48; Start 09/17/20 at 13:30; Stop 09/17/20 at 13:31; Status DC Bumetanide (Bumex) 1 mg DAILY PO Last administered on 09/20/20 07:38; Start 09/18/20 at 09:00 Morphine Sulfate (Morphine Sulfate) 2 mg PRN Q2HR PRN IV PAIN Last administered on 09/20/20 07:55; Start 09/18/20 at 10:00 Ondansetron HCl (Zofran) 4 mg 1X ONCE IV Last administered on 09/18/20 17:15; Start 09/18/20 at 17:15; Stop 09/18/20 at 17:16; Status DC Ondansetron HCl (Zofran Odt) 4 mg PRN Q6HRS PRN PO NAUSEA/VOMITING Last administered on 09/19/20at 12:10; Start 09/19/20 at 11:45 Active Scripts Active Klor-Con M20 (Potassium Chloride) 20 Meq Tab.er.prt 1 Tab PO DAILY 30 Days Metoprolol Tartrate 25 Mg Tablet 1 Tab PO BID Metformin Hcl 500 Mg Tablet 500 Mg PO BIDWMEALS 30 Days Eliquis (Apixaban) 5 Mg Tablet 5 Mg PO BID 30 Days Reported Famotidine 20 Mg Tablet 20 Mg PO BID Novolog Flexpen (Insulin Aspart) 100 Unit/1 Ml Insuln.pen 15 Unit SQ TIDBFRMEAL Robaxin-750 (Methocarbamol) 750 Mg Tablet 500 Mg PO TID PRN PRN Hydrocodone-Apap 7.5-325 (Hydrocodone Bit/Acetaminophen) 1 Tab Tablet 1 Tab PO PRN Q6HRS PRN Aspir 81 (Aspirin) 81 Mg Tablet.dr 81 Mg PO DAILY Fenofibrate (Fenofibrate,Micronized) 134 Mg Capsule 134 Mg PO DAILY Atorvastatin Calcium 40 Mg Tablet 40 Mg PO HS Amiodarone Hcl 200 Mg Tablet 200 Mg PO DAILY Vitals/I & O Vital Sign - Last 24 Hours 09/19/20 09/19/20 09/19/20 09/19/20 12:12 12:42 15:00 17:57 Temp 96.7 96.7 Pulse 65 Resp 16 B/P (MAP) 142/65 (90) Pulse Ox 100 100 96 96 O2 Delivery Room Air Room Air Room Air Room Air 09/19/20 09/19/20 09/19/20 09/19/20 18:57 19:02 19:38 20:16 Temp 98.2 98.2 Pulse 68 68 Resp 16 B/P (MAP) 150/69 (96) 150/69 Pulse Ox 96 95 O2 Delivery Room Air Room Air Room Air 09/19/20 09/19/20 09/19/20 09/20/20 21:50 22:50 23:58 03:05 Temp 97.5 98.3 97.5 98.3 Pulse 66 63 Resp 18 20 16 16 B/P (MAP) 132/69 (90) 149/79 (102) Pulse Ox 94 97 O2 Delivery Room Air Room Air Room Air 109/20/20 09/20/20 09/20/20 03:45 04:45 06:23 07:39 Temp 98.7 98.7 Pulse 79 79 Resp 18 18 16 B/P (MAP) 131/72 (91) 131/72 Pulse Ox 94 O2 Delivery Room Air Room Air 09/20/20 09/20/20 09/20/20 07:46 07:55 08:25 Pulse 79 B/P (MAP) 131/72 Pulse Ox 94 94 O2 Delivery Room Air Room Air Intake and Output 09/19/20 09/19/20 09/20/20 15:00 23:00 07:00 Intake Total 0 ml 300 ml Output Total 850 ml Balance 0 ml -550 ml Justicifation of Admission Dx: Justifications for Admission: Justification of Admission Dx: Yes CHF: Hemodynamic Instability Comminuty Aquired Pneumonia: Hypoxemia MAKENZIE TANG MD Sep 20, 2020 12:04
[2020-09-20 15:00] VITALS: BP 121/67
--- NOTE | 2020-09-20 15:47 | PDOC ---
PROGRESS NOTES Date of Service DATE: 09/20/20 TIME: 15:45 Subjective Subjective Patient seen and examined Objective Objective Vital Signs Date Time Temp Pulse Resp B/P (MAP) Pulse Ox O2 Delivery O2 Flow Rate FiO2 09/20/20 15:00 97.4 61 18 121/67 (85) 98 Room Air 97.4 Intake and Output 09/20/20 06:59 Intake Total 300 ml Output Total 850 ml Balance -550 ml Intake Oral 300 ml Output Urine Total 850 ml Physical Exam Abdomen: Normal bowel sounds Heart: Regular rate General: No acute distress Lungs: Other (Slightly decreased breath sounds) Assessment Assessment Problems Medical Problems: (1) Acute on chronic diastolic (congestive) heart failure Status: Acute (2) Chest pain Status: Acute (3) Morbid obesity Status: Chronic (4) Respiratory distress Status: Acute Acute on chronic diastolic CHF: Continued improvement. Recent ejection fraction was normal. Continue present treatment. Increase activities HTN urgency: Resolved. Continue present medical treatment. Improved PAFIB: Now sinus. We will continue amiodarone. Chronic NOAC: eliquis for stroke prevention SSS with PPM in situ: Proxamatronic with hx of tachy-rhina syndrome DM2/HLP CAD; past LCx/LAD stents. Recent MPI unremarkable, clinically stable Comment Review of Relevant I have reviewed the following items ashwini (where applicable) has been applied. Labs Laboratory Tests Test 09/18/20 17:02 09/18/20 21:00 09/19/20 09:04 09/19/20 12:10 Glucose (Fingerstick) 100 mg/dL (70-99) 100 mg/dL (70-99) 129 mg/dL (70-99) 113 mg/dL (70-99) Test 09/19/20 18:02 09/19/20 20:23 09/20/20 07:51 09/20/20 12:30 Glucose (Fingerstick) 108 mg/dL (70-99) 118 mg/dL (70-99) 131 mg/dL (70-99) 111 mg/dL (70-99) Laboratory Tests Test 09/19/20 18:02 09/19/20 20:23 09/20/20 07:51 09/20/20 12:30 Glucose (Fingerstick) 108 mg/dL (70-99) 118 mg/dL (70-99) 131 mg/dL (70-99) 111 mg/dL (70-99) Medications Current Medications Aspirin (Hiram Aspirin) 325 mg 1X ONCE PO Last administered on 09/16/20at 13:50; Start 09/16/20 at 13:30; Stop 09/16/20 at 13:31; Status DC Furosemide (Lasix) 40 mg 1X ONCE IVP Last administered on 09/16/20at 15:39; Start 09/16/20 at 15:30; Stop 09/16/20 at 15:31; Status DC Nitroglycerin (Nitrostat) 0.4 mg PRN Q5MIN PRN SL CHEST PAIN Last administered on 09/16/20at 15:48; Start 09/16/20 at 15:30 Morphine Sulfate (Morphine Sulfate) 4 mg 1X ONCE IV Last administered on 09/16/20at 15:47; Start 09/16/20 at 15:45; Stop 09/16/20 at 15:46; Status DC Ondansetron HCl (Zofran) 4 mg 1X ONCE IVP Last administered on 09/16/20at 15:47; Start 09/16/20 at 15:45; Stop 09/16/20 at 15:46; Status DC Amiodarone HCl (Cordarone) 200 mg DAILY PO Last administered on 09/20/20 07:46; Start 09/17/20 at 09:00 Apixaban (Eliquis) 5 mg BID PO Last administered on 09/20/20 07:40; Start 09/16/20 at 21:00 Aspirin (Ecotrin) 81 mg DAILY PO Last administered on 09/20/20 07:37; Start 09/17/20 at 09:00 Atorvastatin Calcium (Lipitor) 40 mg HS PO Last administered on 09/19/20 20:16; Start 09/16/20 at 21:00 Famotidine (Pepcid) 20 mg BID PO Last administered on 09/20/20 07:39; Start 09/16/20 at 21:00 Fenofibrate (Lofibra) 134 mg DAILY PO Last administered on 09/20/20 07:38; Start 09/17/20 at 09:00 Metformin HCl (Glucophage) 500 mg BIDWMEALS PO Last administered on 09/20/20 07:38; Start 09/16/20 at 17:00 Methocarbamol (Robaxin) 500 mg TID PRN PRN PO PAIN; Start 09/16/20 at 16:00; Stop 09/16/20 at 16:05; Status DC Metoprolol Tartrate (Lopressor) 25 mg BID PO Last administered on 09/20/20 07:39; Start 09/16/20 at 21:00 Potassium Chloride (Klor-Con) 20 meq DAILY PO Last administered on 09/20/20 07:40; Start 09/17/20 at 09:00 Insulin Human Lispro (HumaLOG) 15 units TIDWMEALS SQ Last administered on 09/20/20 13:16; Start 09/16/20 at 17:00 Furosemide (Lasix) 40 mg BID92 PO Last administered on 09/17/20at 08:44; Start 09/17/20 at 09:00; Stop 09/17/20 at 13:08; Status DC Methocarbamol (Robaxin) 750 mg TID PRN PRN PO MUSCLE SPASMS Last administered on 09/20/20 07:45; Start 09/16/20 at 16:15 Acetaminophen/ Hydrocodone Bitart (Lortab 7.5/325) 1 tab PRN Q6HRS PRN PO MODERATE TO SEVERE PAIN Last administered on 09/20/20 13:51; Start 09/16/20 at 20:15 Insulin Human Lispro (HumaLOG) 0-5 UNITS TIDWMEALS SQ ; Start 09/17/20 at 08:00 Dextrose (Dextrose 50%-Water Syringe) 12.5 gm PRN Q15MIN PRN IV SEE COMMENTS; Start 09/16/20 at 20:15 Polyethylene Glycol (miraLAX PACKET) 17 gm PRN DAILY PRN PO CONSTIPATION; Start 09/17/20 at 09:00 Info (Anti-Coagulation Monitoring By Pharmacy) 1 each PRN DAILY PRN MC SEE COMMENTS Last administered on 09/18/20 07:59; Start 09/17/20 at 13:00 Bumetanide (Bumex) 1 mg 1X ONCE IV Last administered on 09/17/20at 13:48; Start 09/17/20 at 13:30; Stop 09/17/20 at 13:31; Status DC Bumetanide (Bumex) 1 mg DAILY PO Last administered on 1/3/21at 07:38; Start 09/18/20 at 09:00 Morphine Sulfate (Morphine Sulfate) 2 mg PRN Q2HR PRN IV PAIN Last administered on 09/20/20at 07:55; Start 09/18/20 at 10:00 Ondansetron HCl (Zofran) 4 mg 1X ONCE IV Last administered on 09/18/20at 17:15; Start 09/18/20 at 17:15; Stop 09/18/20 at 17:16; Status DC Ondansetron HCl (Zofran Odt) 4 mg PRN Q6HRS PRN PO NAUSEA/VOMITING Last administered on 09/19/20at 12:10; Start 09/19/20 at 11:45 Active Scripts Active Klor-Con M20 (Potassium Chloride) 20 Meq Tab.er.prt 1 Tab PO DAILY 30 Days Metoprolol Tartrate 25 Mg Tablet 1 Tab PO BID Metformin Hcl 500 Mg Tablet 500 Mg PO BIDWMEALS 30 Days Eliquis (Apixaban) 5 Mg Tablet 5 Mg PO BID 30 Days Reported Famotidine 20 Mg Tablet 20 Mg PO BID Novolog Flexpen (Insulin Aspart) 100 Unit/1 Ml Insuln.pen 15 Unit SQ TIDBFRMEAL Robaxin-750 (Methocarbamol) 750 Mg Tablet 500 Mg PO TID PRN PRN Hydrocodone-Apap 7.5-325 (Hydrocodone Bit/Acetaminophen) 1 Tab Tablet 1 Tab PO PRN Q6HRS PRN Aspir 81 (Aspirin) 81 Mg Tablet.dr 81 Mg PO DAILY Fenofibrate (Fenofibrate,Micronized) 134 Mg Capsule 134 Mg PO DAILY Atorvastatin Calcium 40 Mg Tablet 40 Mg PO HS Amiodarone Hcl 200 Mg Tablet 200 Mg PO DAILY Vitals/I & O Vital Sign - Last 24 Hours 09/19/20 09/19/20 09/19/20 09/19/20 17:57 18:57 19:02 19:38 Temp 98.2 98.2 Pulse 68 Resp 16 B/P (MAP) 150/69 (96) Pulse Ox 96 96 95 O2 Delivery Room Air Room Air Room Air Room Air 09/19/20 09/19/20 09/19/20 09/19/20 20:16 21:50 22:50 23:58 Temp 97.5 97.5 Pulse 68 66 Resp 18 20 16 B/P (MAP) 150/69 132/69 (90) Pulse Ox 94 O2 Delivery Room Air Room Air 09/20/20 09/20/20 09/20/20 09/20/20 03:05 03:45 04:45 06:23 Temp 98.3 98.7 98.3 98.7 Pulse 63 79 Resp 16 18 18 16 B/P (MAP) 149/79 (102) 131/72 (91) Pulse Ox 97 94 O2 Delivery Room Air Room Air Room Air 09/20/20 09/20/20 09/20/20 09/20/20 07:39 07:46 07:55 08:00 Pulse 79 79 B/P (MAP) 131/72 131/72 Pulse Ox 94 O2 Delivery Room Air Room Air 09/20/20 09/20/20 09/20/20 08:25 11:00 15:00 Temp 98.0 97.4 98.0 97.4 Pulse 61 61 Resp 16 18 B/P (MAP) 119/57 (77) 121/67 (85) Pulse Ox 94 96 98 O2 Delivery Room Air Room Air Room Air Intake and Output 09/19/20 09/19/20 09/20/20 14:59 22:59 06:59 Intake Total 0 ml 300 ml Output Total 850 ml Balance 0 ml -550 ml Justifications for Admission Other Justification KAREN LOCKWOOD MD Sep 20, 2020 15:47
[2020-09-20 19:29] VITALS: BP 148/75
[2020-09-20] MEDS: ATORVASTATIN CALCIUM 40 MG TABLET. PO SCH (20:47)
[2020-09-20 23:00] VITALS: BP 131/72
[2020-09-21] VITALS (7 sets, daily range): BP systolic 111–141; BP diastolic 49–79
[2020-09-21] MEDS: HYDROcodone/APAP 7.5/325MG 1 TAB TABLET PO PRN ×2 (01:47→10:04)
[2020-09-21] MEDS: MORPHINE SULFATE 2 MG/ML VIAL. IV PRN (06:03)
[2020-09-21] MEDS: INSULIN LISPRO 300 UNITS/3 ML VIAL. SQ SCH ×6 (08:00→17:49)
--- NOTE | 2020-09-21 08:04 | PDOC ---
[facility] PROGRESS NOTE Date of Service DOS: DATE: 09/21/20 TIME: 08:02 Chief Complaint Chief Complaint A/P: Acute on chronic diastolic (congestive) heart failure Atrial flutter Now sinus. continue amiodarone. 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 Patient reports he has been developing progressive shortness of air which has progressed to bother him at rest. Patient also reports to some substernal chest pain which developed earlier today however that has since dissipated. The patient however states that he does have it is also history which includes hypertension as well as congestive heart failure and is able to speak in broken sentences. Despite his symptoms he denies any history of coronavirus exposures. Specifically he denies any cough or fever. He is awake, alert and ill- appearing. 09/18: Patient seen and examined 09/19: Patient seen and examined. Overnight afebrile. COVID 19 negative. Swelling and shortness of breath improved. Notes he has home O2 but does not use it. Chest pain has resolved. Now he is complaining of bilateral hand and feet burning pain. He has not been on his gabapentin or Cymbalta since admission. He also notes some nausea and no bowel movement for the past 3 days. Plan: Reglan IV x1 Gabapentin and cymbalta Will reassess, possible d/c today or tomorrow Vitals/I&O Vitals/I&O: Vital Signs Date Time Temp Pulse Resp B/P (MAP) Pulse Ox O2 Delivery O2 Flow Rate FiO2 09/21/20 06:34 20 Room Air 09/21/20 06:03 95 09/21/20 03:00 97.4 59 132/79 (96) 97.4 I & O 09/20/20 09/20/20 09/21/20 15:00 23:00 07:00 Intake Total 500 ml 500 ml Output Total 2625 ml 150 ml 375 ml Balance -2625 ml 350 ml 125 ml Physical Exam Physical Exam: HENT: Normocephalic, atraumatic, bilateral external ears normal, oropharynx moist, no oral exudates, nose normal. [] Eyes: PERRLA, EOMI, conjunctiva normal, no discharge. [] Neck: Normal range of motion, no tenderness, supple, no stridor. [] Cardiovascular:Heart rate regular rhythm, no murmur [] Lungs & Thorax: Subtle crackles bilaterally with diminished breath sounds. Abdomen: Bowel sounds normal, soft, no tenderness, no masses, no pulsatile masses. [] Skin: Warm, dry, no erythema, no rash. [] Back: No tenderness, no CVA tenderness. [] Extremities: Patient has peripheral edema which appears to be chronic in nature. No tenderness, no cyanosis, no clubbing, ROM intact, Neurologic: Alert and oriented X 3, normal motor function, normal sensory function, no focal deficits noted. [] Psychologic: Affect normal, judgment normal, mood normal. [] General: Alert, Oriented X3, Cooperative, mild distress HEENT: Atraumatic, EOMI Heart: RRR, no thrills Breasts: Not examined Abdomen: Soft Rectal Exam: not examined Extremities: No cyanosis Neuro: Normal speech, Cranial nerves 3-12 NL Psych/Mental Status: Mental status NL, Mood NL General: Cooperative, mild distress Heart: Regular rate Lungs: Wheezing Abdomen: Normal bowel sounds Extremities: No cyanosis Labs Labs: Laboratory Tests Test 09/20/20 12:30 09/20/20 16:53 09/20/20 21:39 09/21/20 07:37 Glucose (Fingerstick) 111 mg/dL (70-99) 94 mg/dL (70-99) 114 mg/dL (70-99) 99 mg/dL (70-99) Assessment and Plan Assessmemt and Plan Problems Medical Problems: (1) Acute on chronic diastolic (congestive) heart failure Status: Acute (2) Chest pain Status: Acute (3) Morbid obesity Status: Chronic (4) Respiratory distress Status: Acute Comment Review of Relevant I have reviewed the following items ashwini (where applicable) has been applied. Justifications for Admission Other Justification JOSSELIN ARCOS MD Sep 21, 2020 08:04
[2020-09-21] MEDS: metFORMIN 500 MG TABLET PO SCH ×2 (08:49→17:45)
[2020-09-21] MEDS: FAMOTIDINE 20 MG TABLET. PO SCH ×2 (08:49→20:36)
[2020-09-21] MEDS: POTASSIUM CHLORIDE 20 MEQ TABLET.ER. PO SCH (08:50)
[2020-09-21] MEDS: BUMETANIDE 1 MG TABLET. PO SCH (08:50)
[2020-09-21] MEDS: METOPROLOL TART IMMED RELEASE 25 MG TABLET. PO SCH ×2 (08:50→20:35)
[2020-09-21] MEDS: APIXABAN 5 MG TABLET. PO SCH ×2 (08:50→20:36)
[2020-09-21] MEDS: FENOFIBRATE,MICRONIZED 134 MG CAPSULE PO SCH (08:50)
[2020-09-21] MEDS: AMIODARONE HCL 200 MG TABLET. PO SCH (08:50)
[2020-09-21] MEDS: ASPIRIN ENTERIC COATED 81 MG TABLET.DR. PO SCH (08:51)
[2020-09-21] MEDS ORDERED: ANTI-COAG MONITOR BY PHARMACY. MC PRN (09:00)
[2020-09-21] MEDS: METHOCARBAMOL 750 MG TABLET PO PRN (10:06)
[2020-09-21 10:52] LABS: ALBUMIN 3.3 g/dL (3.4-5.0); ALBUMIN/GLOBULIN RATIO 0.8 (1.0-1.7); BASO # 0.1 x10^3/uL (0.0-0.2); BASO % 1 % (0-3); CALCIUM 9.7 mg/dL (8.5-10.1); CREATININE 1.1 mg/dL (0.7-1.3); EOS # 0.3 x10^3/uL (0.0-0.7); EOS % 2 % (0-3); GFR 66.6; HEMATOCRIT 38.1 % (39.0-53.0); HEMOGLOBIN 12.1 g/dL (13.0-17.5); LYMPH # 1.8 x10^3/uL (1.0-4.8); LYMPH % 14 % (24-48); MEAN CORPUSCULAR HEMOGLOBIN 27 pg (25-35); MEAN CORPUSCULAR HGB CONC 32 g/dL (31-37); MEAN CORPUSCULAR VOLUME 86 fL (79-100); MONO # 1.2 x10^3/uL (0.0-1.1); MONO % 10 % (0-9); NEUT # 9.6 x10^3/uL (1.8-7.7); NEUT % 74 % (31-73); PLATELET COUNT 567 x10^3/uL (140-400); POTASSIUM 4.1 mmol/L (3.5-5.1); RED BLOOD COUNT 4.44 x10^6/uL (4.30-5.70); RED CELL DISTRIBUTION WIDTH 15.3 % (11.5-14.5); TOTAL BILIRUBIN 0.5 mg/dL (0.2-1.0); TOTAL PROTEIN 7.7 g/dL (6.4-8.2); WHITE BLOOD COUNT 12.9 x10^3/uL (4.0-11.0)
[2020-09-21] MEDS ORDERED: GABA300C9 PO (10:54)
[2020-09-21] MEDS ORDERED: DULO30CA44 PO (10:54)
[2020-09-21] MEDS ORDERED: METOCLOPRAMIDE HCL 10 MG/2 ML VIAL. IVP ONE (11:30)
[2020-09-21] MEDS: DULoxetine HCL 30 MG CAPSULE.DR PO SCH (11:41)
[2020-09-21] MEDS: GABAPENTIN 300 MG CAPSULE. PO SCH ×2 (13:05→20:36)
--- NOTE | 2020-09-21 14:16 | PDOC ---
SHYAM FREIRE GEOCHEMISTRY TEACHER 09/21/20 1416: CARDIO Progress Notes Date and Time Date of Service 09/21/19 Time of Evaluation 1400 Subjective Subjective: No Chest Pain, No shortness of breath, No Palpitations, Other (c/o constipation ) Vitals Vitals Vital Signs Date Time Temp Pulse Resp B/P (MAP) Pulse Ox O2 Delivery O2 Flow Rate FiO2 09/21/20 12:19 97.3 60 16 128/51 (76) 97 Room Air 97.3 Weight Weight [ ] Input and Output Intake and Output Intake and Output 09/21/20 07:00 Intake Total 1000 ml Output Total 3150 ml Balance -2150 ml Intake Oral 1000 ml Output Urine Total 3150 ml Laboratory Labs Laboratory Tests Test 09/20/20 16:53 09/20/20 21:39 09/21/20 07:37 09/21/20 10:00 Glucose (Fingerstick) 94 mg/dL (70-99) 114 mg/dL (70-99) 99 mg/dL (70-99) White Blood Count 12.9 x10^3/uL (4.0-11.0) Red Blood Count 4.44 x10^6/uL (4.30-5.70) Hemoglobin 12.1 g/dL (13.0-17.5) Hematocrit 38.1 % (39.0-53.0) Mean Corpuscular Volume 86 fL (79-100) Mean Corpuscular Hemoglobin 27 pg (25-35) Mean Corpuscular Hemoglobin Concent 32 g/dL (31-37) Red Cell Distribution Width 15.3 % (11.5-14.5) Platelet Count 567 x10^3/uL (140-400) Neutrophils (%) (Auto) 74 % (31-73) Lymphocytes (%) (Auto) 14 % (24-48) Monocytes (%) (Auto) 10 % (0-9) Eosinophils (%) (Auto) 2 % (0-3) Basophils (%) (Auto) 1 % (0-3) Neutrophils # (Auto) 9.6 x10^3/uL (1.8-7.7) Lymphocytes # (Auto) 1.8 x10^3/uL (1.0-4.8) Monocytes # (Auto) 1.2 x10^3/uL (0.0-1.1) Eosinophils # (Auto) 0.3 x10^3/uL (0.0-0.7) Basophils # (Auto) 0.1 x10^3/uL (0.0-0.2) Sodium Level 137 mmol/L (136-145) Potassium Level 4.1 mmol/L (3.5-5.1) Chloride Level 100 mmol/L (98-107) Carbon Dioxide Level 26 mmol/L (21-32) Anion Gap 11 (6-14) Blood Urea Nitrogen 27 mg/dL (8-26) Creatinine 1.1 mg/dL (0.7-1.3) Estimated GFR (Cockcroft-Gault) 66.6 BUN/Creatinine Ratio 25 (6-20) Glucose Level 154 mg/dL (70-99) Calcium Level 9.7 mg/dL (8.5-10.1) Total Bilirubin 0.5 mg/dL (0.2-1.0) Aspartate Amino Transf (AST/SGOT) 14 U/L (15-37) Alanine Aminotransferase (ALT/SGPT) 33 U/L (16-63) Alkaline Phosphatase 82 U/L (46-116) Total Protein 7.7 g/dL (6.4-8.2) Albumin 3.3 g/dL (3.4-5.0) Albumin/Globulin Ratio 0.8 (1.0-1.7) Test 09/21/20 10:50 Glucose (Fingerstick) 133 mg/dL (70-99) Physical Exam HEENT: Neck Supple W Full Motion Chest: Symmetric LUNGS: Other (diminished bases) Heart: RRR (SR) Abdomen: Other (obese) Extremities: No Calf Tenderness, Other (1-2+ bilateral LE edema) Neurology: alert, oriented, follow commands Assessment Assessment 1. Acute on chronic diastolic CHF; improved with diuresis. Recent echo with preserved LV systolic function. 2. HTN urgency: now controlled 3. PAFIB; presently SR. on amiodarone. Eliquis for stroke prevention 4. CAD; past LCx/LAD stents. Recent MPI unremarkable, clinically stable 5. SSS, tachy-rhina; s/p PPM ([employer]) 6. Diabetes, II 7. Hyperlipidemia; statin 8. Chronic lymphedema 9. Constipation; as per IM Recommendations Bumex therapy Continue amiodarone for rhythm maintenance. Eliquis for stroke prevention Secondary prevention measures including ASA, statin, BB therapy Possible TEETEE. consider outpt w/u Supportive care Follow up in our office with Dr. Sanchez. Justicifation of Admission Dx: Justifications for Admission: Justification of Admission Dx: Yes CHF: Hemodynamic Instability Comminuty Aquired Pneumonia: Hypoxemia JAIMIE SANCHEZ MD 09/21/201925: CARDIO Progress Notes Assessment Assessment Patient seen and examined. Agree with MOTION DESIGNER's assessment and plan. Ac on chr diastolic HF better compensated. Continue bumex CAD stable PAF maintaining SR. Continue amiodarone for rhythm maintenance and eliquis for stroke prophylaxis. BP improved OK for DC from cardiac standpoint. Follow up as scheduled. SHYAM FREIRE APRN Sep 21, 2020 14:16 JAIMIE SANCHEZ MD Sep 21, 2020 19:26
[2020-09-21] MEDS: ANTI-COAG MONITOR BY PHARMACY. MC PRN (15:16)
[2020-09-21] MEDS: ATORVASTATIN CALCIUM 40 MG TABLET. PO SCH (20:36)
[2020-09-21] MEDS ORDERED: POLYETHYLENE GLYCOL 3350 17 GM PACKET. PO ONE (22:00)
[2020-09-22] MEDS: HYDROcodone/APAP 7.5/325MG 1 TAB TABLET PO PRN ×2 (01:17→07:46)
[2020-09-22 03:00] VITALS: BP 104/68
[2020-09-22] MEDS: GABAPENTIN 300 MG CAPSULE. PO SCH (05:24)
[2020-09-22 07:00] VITALS: BP 126/66
[2020-09-22] MEDS: metFORMIN 500 MG TABLET PO SCH (07:46)
--- NOTE | 2020-09-22 07:52 | PDOC ---
[facility] PROGRESS NOTE Date of Service DOS: DATE: 09/22/20 TIME: 07:52 Chief Complaint Chief Complaint A/P: Acute on chronic diastolic (congestive) heart failure Atrial flutter Now sinus. continue amiodarone. 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 Patient reports he has been developing progressive shortness of air which has progressed to bother him at rest. Patient also reports to some substernal chest pain which developed earlier today however that has since dissipated. The patient however states that he does have it is also history which includes hypertension as well as congestive heart failure and is able to speak in broken sentences. Despite his symptoms he denies any history of coronavirus exposures. Specifically he denies any cough or fever. He is awake, alert and ill- appearing. 09/18: Patient seen and examined 09/19: Patient seen and examined. 09/21: Overnight afebrile. COVID 19 negative. Swelling and shortness of breath improved. Notes he has home O2 but does not use it. Chest pain has resolved. Now he is complaining of bilateral hand and feet burning pain. He has not been on his gabapentin or Cymbalta since admission. He also notes some nausea and no bowel movement for the past 3 days. Multiple BM overnight. Pain improved with restarting gabapentin and Cymbalta. Has outpatient cardiology follow-up Plan: D/c home Vitals/I&O Vitals/I&O: Vital Signs Date Time Temp Pulse Resp B/P (MAP) Pulse Ox O2 Delivery O2 Flow Rate FiO2 09/22/20 07:46 Room Air 09/22/20 03:00 98.0 62 16 104/68 (80) 96 98.0 09/21/20 15:00 2.0 I & O 09/21/20 09/21/20 09/22/20 15:00 23:00 07:00 Intake Total 120 ml 600 ml Output Total 1100 ml 450 ml 450 ml Balance -1100 ml -330 ml 150 ml Physical Exam Physical Exam: HENT: Normocephalic, atraumatic, bilateral external ears normal, oropharynx moist, no oral exudates, nose normal. [] Eyes: PERRLA, EOMI, conjunctiva normal, no discharge. [] Neck: Normal range of motion, no tenderness, supple, no stridor. [] Cardiovascular:Heart rate regular rhythm, no murmur [] Lungs & Thorax: Subtle crackles bilaterally with diminished breath sounds. Abdomen: Bowel sounds normal, soft, no tenderness, no masses, no pulsatile masses. [] Skin: Warm, dry, no erythema, no rash. [] Back: No tenderness, no CVA tenderness. [] Extremities: Patient has peripheral edema which appears to be chronic in nature. No tenderness, no cyanosis, no clubbing, ROM intact, Neurologic: Alert and oriented X 3, normal motor function, normal sensory function, no focal deficits noted. [] Psychologic: Affect normal, judgment normal, mood normal. [] General: Alert, Oriented X3, Cooperative, mild distress HEENT: Atraumatic, EOMI Heart: RRR, no thrills Breasts: Not examined Abdomen: Soft Rectal Exam: not examined Extremities: No cyanosis Neuro: Normal speech, Cranial nerves 3-12 NL Psych/Mental Status: Mental status NL, Mood NL General: Cooperative, mild distress Heart: Regular rate Lungs: Wheezing Abdomen: Normal bowel sounds Extremities: No cyanosis Labs Labs: Laboratory Tests Test 09/21/20 10:00 09/21/20 10:50 09/21/20 16:10 09/21/20 21:24 White Blood Count 12.9 x10^3/uL (4.0-11.0) Red Blood Count 4.44 x10^6/uL (4.30-5.70) Hemoglobin 12.1 g/dL (13.0-17.5) Hematocrit 38.1 % (39.0-53.0) Mean Corpuscular Volume 86 fL (79-100) Mean Corpuscular Hemoglobin 27 pg (25-35) Mean Corpuscular Hemoglobin Concent 32 g/dL (31-37) Red Cell Distribution Width 15.3 % (11.5-14.5) Platelet Count 567 x10^3/uL (140-400) Neutrophils (%) (Auto) 74 % (31-73) Lymphocytes (%) (Auto) 14 % (24-48) Monocytes (%) (Auto) 10 % (0-9) Eosinophils (%) (Auto) 2 % (0-3) Basophils (%) (Auto) 1 % (0-3) Neutrophils # (Auto) 9.6 x10^3/uL (1.8-7.7) Lymphocytes # (Auto) 1.8 x10^3/uL (1.0-4.8) Monocytes # (Auto) 1.2 x10^3/uL (0.0-1.1) Eosinophils # (Auto) 0.3 x10^3/uL (0.0-0.7) Basophils # (Auto) 0.1 x10^3/uL (0.0-0.2) Sodium Level 137 mmol/L (136-145) Potassium Level 4.1 mmol/L (3.5-5.1) Chloride Level 100 mmol/L (98-107) Carbon Dioxide Level 26 mmol/L (21-32) Anion Gap 11 (6-14) Blood Urea Nitrogen 27 mg/dL (8-26) Creatinine 1.1 mg/dL (0.7-1.3) Estimated GFR (Cockcroft-Gault) 66.6 BUN/Creatinine Ratio 25 (6-20) Glucose Level 154 mg/dL (70-99) Calcium Level 9.7 mg/dL (8.5-10.1) Total Bilirubin 0.5 mg/dL (0.2-1.0) Aspartate Amino Transf (AST/SGOT) 14 U/L (15-37) Alanine Aminotransferase (ALT/SGPT) 33 U/L (16-63) Alkaline Phosphatase 82 U/L (46-116) Total Protein 7.7 g/dL (6.4-8.2) Albumin 3.3 g/dL (3.4-5.0) Albumin/Globulin Ratio 0.8 (1.0-1.7) Glucose (Fingerstick) 133 mg/dL (70-99) 113 mg/dL (70-99) 121 mg/dL (70-99) Assessment and Plan Assessmemt and Plan Problems Medical Problems: (1) Acute on chronic diastolic (congestive) heart failure Status: Acute (2) Chest pain Status: Acute (3) Morbid obesity Status: Chronic (4) Respiratory distress Status: Acute Comment Review of Relevant I have reviewed the following items ashwini (where applicable) has been applied. Medications: Current Medications Medications (Trade) Dose Ordered Sig/Lito Route PRN Reason Start Time Stop Time Status Last Admin Dose Admin Duloxetine HCl (Cymbalta) 30 mg DAILY PO 09/21/20 11:00 09/21/20 11:41 Gabapentin (Neurontin) 300 mg TID PO 09/21/20 14:00 09/22/20 05:24 Metoclopramide HCl (Reglan Vial) 10 mg 1X ONCE IVP 09/21/20 11:30 09/21/20 11:31 DC 09/21/20 11:41 Polyethylene Glycol (miraLAX PACKET) 17 gm 1X ONCE PO 09/21/20 22:00 09/21/20 22:01 DC 09/21/20 21:30 Justifications for Admission Other Justification JOSSELIN ARCOS MD Sep 22, 2020 07:52
[2020-09-22] MEDS: INSULIN LISPRO 300 UNITS/3 ML VIAL. SQ SCH ×2 (08:00→10:04)
[2020-09-22] MEDS: ANTI-COAG MONITOR BY PHARMACY. MC PRN (09:02)
[2020-09-22] MEDS: APIXABAN 5 MG TABLET. PO SCH (10:00)
[2020-09-22] MEDS: ASPIRIN ENTERIC COATED 81 MG TABLET.DR. PO SCH (10:00)
[2020-09-22] MEDS: FENOFIBRATE,MICRONIZED 134 MG CAPSULE PO SCH (10:00)
[2020-09-22] MEDS: BUMETANIDE 1 MG TABLET. PO SCH (10:00)
[2020-09-22] MEDS: AMIODARONE HCL 200 MG TABLET. PO SCH (10:01)
[2020-09-22] MEDS: POTASSIUM CHLORIDE 20 MEQ TABLET.ER. PO SCH (10:01)
[2020-09-22] MEDS: FAMOTIDINE 20 MG TABLET. PO SCH (10:01)
[2020-09-22] MEDS: DULoxetine HCL 30 MG CAPSULE.DR PO SCH (10:02)
[2020-09-22] MEDS: METOPROLOL TART IMMED RELEASE 25 MG TABLET. PO SCH (10:02)
[2020-09-22] MEDS ORDERED: POLY17PO52 PO (10:14)
[2020-09-22] MEDS ORDERED: BUME1TAB3 PO (10:14)
--- NOTE | 2020-09-22 10:17 | PDOC3 ---
Discharge Summary Visit Information Date of Admission: Sep 16, 2020 Date of Discharge: Sep 22, 2020 Admitting Diagnosis: Acute on chronic diastolic CHF Final Diagnosis Problems Medical Problems: (1) Acute on chronic diastolic (congestive) heart failure Status: Acute (2) Chest pain Status: Acute (3) Morbid obesity Status: Chronic (4) Respiratory distress Status: Acute Brief Hospital Course Allergies Allergies Coded Allergies Type Severity Reaction Last Updated Verified vancomycin Allergy Severe Rash AND SOA 11/23/19 Yes I S O L A T I O N *CONTACT* Allergy Unknown 12/29/19 Yes Vital Signs Vital Signs Date Time Temp Pulse Resp B/P (MAP) Pulse Ox O2 Delivery O2 Flow Rate FiO2 09/22/20 10:05 Room Air 09/22/20 10:02 65 126/66 09/22/20 03:00 98.0 16 96 98.0 09/21/20 15:00 2.0 Lab Results Laboratory Tests Test 09/20/20 12:30 09/20/20 16:53 09/20/20 21:39 09/21/20 07:37 Glucose (Fingerstick) 111 mg/dL (70-99) 94 mg/dL (70-99) 114 mg/dL (70-99) 99 mg/dL (70-99) Test 09/21/20 10:00 09/21/20 10:50 09/21/20 16:10 09/21/20 21:24 White Blood Count 12.9 x10^3/uL (4.0-11.0) Red Blood Count 4.44 x10^6/uL (4.30-5.70) Hemoglobin 12.1 g/dL (13.0-17.5) Hematocrit 38.1 % (39.0-53.0) Mean Corpuscular Volume 86 fL (79-100) Mean Corpuscular Hemoglobin 27 pg (25-35) Mean Corpuscular Hemoglobin Concent 32 g/dL (31-37) Red Cell Distribution Width 15.3 % (11.5-14.5) Platelet Count 567 x10^3/uL (140-400) Neutrophils (%) (Auto) 74 % (31-73) Lymphocytes (%) (Auto) 14 % (24-48) Monocytes (%) (Auto) 10 % (0-9) Eosinophils (%) (Auto) 2 % (0-3) Basophils (%) (Auto) 1 % (0-3) Neutrophils # (Auto) 9.6 x10^3/uL (1.8-7.7) Lymphocytes # (Auto) 1.8 x10^3/uL (1.0-4.8) Monocytes # (Auto) 1.2 x10^3/uL (0.0-1.1) Eosinophils # (Auto) 0.3 x10^3/uL (0.0-0.7) Basophils # (Auto) 0.1 x10^3/uL (0.0-0.2) Sodium Level 137 mmol/L (136-145) Potassium Level 4.1 mmol/L (3.5-5.1) Chloride Level 100 mmol/L (98-107) Carbon Dioxide Level 26 mmol/L (21-32) Anion Gap 11 (6-14) Blood Urea Nitrogen 27 mg/dL (8-26) Creatinine 1.1 mg/dL (0.7-1.3) Estimated GFR (Cockcroft-Gault) 66.6 BUN/Creatinine Ratio 25 (6-20) Glucose Level 154 mg/dL (70-99) Calcium Level 9.7 mg/dL (8.5-10.1) Total Bilirubin 0.5 mg/dL (0.2-1.0) Aspartate Amino Transf (AST/SGOT) 14 U/L (15-37) Alanine Aminotransferase (ALT/SGPT) 33 U/L (16-63) Alkaline Phosphatase 82 U/L (46-116) Total Protein 7.7 g/dL (6.4-8.2) Albumin 3.3 g/dL (3.4-5.0) Albumin/Globulin Ratio 0.8 (1.0-1.7) Glucose (Fingerstick) 133 mg/dL (70-99) 113 mg/dL (70-99) 121 mg/dL (70-99) Test 09/22/20 09:09 Glucose (Fingerstick) 109 mg/dL (70-99) Laboratory Tests Test 09/21/20 10:50 09/21/20 16:10 09/21/20 21:24 09/22/20 09:09 Glucose (Fingerstick) 133 mg/dL (70-99) 113 mg/dL (70-99) 121 mg/dL (70-99) 109 mg/dL (70-99) Brief Hospital Course Mr Harris is a 70-year-old male who arrives with ambulatory to the emergency department at the referral of his machine ii cutter. Patient reports he has been developing progressive shortness of air which has progressed to bother him at rest. Patient also reports to some substernal chest pain which developed earlier today however that has since dissipated. The patient however states that he does have it is also history which includes hypertension as well as congestive heart failure and is able to speak in broken sentences. Despite his symptoms he denies any history of coronavirus exposures. Specifically he denies any cough or fever. He is awake, alert and ill- appearing. 09/18: Patient seen and examined 09/19: Patient seen and examined. 09/21: Overnight afebrile. COVID 19 negative. Swelling and shortness of breath improved. Notes he has home O2 but does not use it. Chest pain has resolved. Now he is complaining of bilateral hand and feet burning pain. He has not been on his gabapentin or Cymbalta since admission. He also notes some nausea and no bowel movement for the past 3 days. Multiple BM overnight. Pain improved with restarting gabapentin and Cymbalta. Has outpatient cardiology follow-up Consults: Cardiology Problem list: Acute on chronic diastolic (congestive) heart failure Atrial flutter Now sinus. continue amiodarone. Chronic NOAC: eliquis for stroke prevention Acute hypertensive urgency Respiratory distress, acute due to pulmonary edema Morbid obesity Chest pain Possible COVID-19 CAD, Diabetes, Hypertension, Old myocardial infarction,pacemaker, cardiac stents, Opioid induced constipation - consider naloxegel Plan: D/c home Cardiology outpatient f/u Greater than 30 minutes spent on d/c home with self care. Discharge Information Condition at Discharge: Improved Follow Up: Weeks Disposition/Orders: D/C to Home Scheduled Amiodarone Hcl (Amiodarone Hcl) 200 Mg Tablet, 200 MG PO DAILY, #30 (Reported) Entered as Reported by: Marvin Ventura on 02/09/14 1324 Last Action: Continued on 09/16/20 1600 by MAKENZIE TANG MD Apixaban (Eliquis) 5 Mg Tablet, 5 MG PO BID for afib for 30 Days, #60 Prescribed by: MARY DE LA ROSA on 12/31/18 1425 Last Action: Continued on 09/16/20 1600 by MAKENZIE TANG MD Aspirin (Aspir 81) 81 Mg Tablet.dr, 81 MG PO DAILY, (Reported) Entered as Reported by: PACO WHITMORE on 04/13/15 0739 Last Action: Continued on 09/16/20 1600 by MAKENZIE TANG MD Atorvastatin Calcium (Atorvastatin Calcium) 40 Mg Tablet, 40 MG PO HS, #30 Ref 0 (Reported) Entered as Reported by: PAYTON PEÑA on 02/17/14 1459 Last Action: Continued on 09/16/20 1600 by MAKENZIE TANG MD Bumetanide (Bumetanide) 1 Mg Tablet, 1 MG PO DAILY for CHF for 30 Days, #30 Prescribed by: JOSSELIN ARCOS MD on 09/22/20 1014 Duloxetine Hcl (Duloxetine Hcl) 30 Mg Capsule.dr, 1 CAP PO DAILY for Neuropathy for 90 Days, #90 Ref 2 (Reported) Entered as Reported by: JOSSELIN ARCOS MD on 09/21/201053 Last Action: Continued on 09/21/20 105 by JOSSELIN ARCOS MD Famotidine (Famotidine) 20 Mg Tablet, 20 MG PO BID for gerd, (Reported) Entered as Reported by: SIMON TREADWELL RN on 09/05/20 0347 Last Action: Continued on 09/16/20 1600 by MAKENZIE TANG MD Fenofibrate,Micronized (Fenofibrate) 134 Mg Capsule, 134 MG PO DAILY, (Reported) Entered as Reported by: PACO WHITMORE on 04/13/15 0739 Last Action: Continued on 09/16/20 1600 by MAKENZIE TANG MD Gabapentin (Gabapentin) 300 Mg Capsule, 1 CAP PO TID for Neuropathy for 90 Days, #270 Ref 3 (Reported) Entered as Reported by: JOSSELIN ARCOS MD on 09/21/201053 Last Action: Continued on 09/21/201055 by JOSSELIN ARCOS MD Insulin Aspart (Novolog Flexpen) 100 Unit/1 Ml Insuln.pen, 15 UNIT SQ TIDBFRMEAL for DM, (Reported) Entered as Reported by: SIMON TREADWELL RN on 09/05/20346 Last Action: Converted on 09/16/201599 by MAKENZIE TANG MD Metformin Hcl (Metformin Hcl) 500 Mg Tablet, 500 MG PO BIDWMEALS for ANTI- DIABETIC for 30 Days, #60 Ref 0 Prescribed by: MARY DE LA ROSA on 12/31/18 1425 Last Action: Continued on 09/16/201599 by MAKENZIE TANG MD Metoprolol Tartrate (Metoprolol Tartrate) 25 Mg Tablet, 1 TAB PO BID for htn, #180 Ref 1 Prescribed by: EMA ROGERS on 07/04/19 0856 Last Action: Continued on 09/16/201599 by MAKENZIE TANG MD Potassium Chloride (Klor-Con M20) 20 Meq Tab.er.prt, 1 TAB PO DAILY for on lasix for 30 Days, #30 Ref 0 Prescribed by: KULWINDER MANCIA MD on 01/07/20 1009 Last Action: Continued on 09/16/201599 by MAKENZIE TANG MD Scheduled PRN Hydrocodone Bit/Acetaminophen (Hydrocodone-Apap 7.5-325 ) 1 Tab Tablet, 1 TAB PO PRN Q6HRS PRN for PAIN, Ref 0 (Reported) Entered as Reported by: SIMON TREADWELL RN on 09/05/20346 Last Action: Continued on 09/16/202005 by Yovany Burgess Methocarbamol (Robaxin-750) 750 Mg Tablet, 500 MG PO TID PRN PRN for PAIN, (Reported) Entered as Reported by: SIMON TREADWELL RN on 09/05/20346 Last Action: Continued on 09/16/201599 by MAKENZIE TANG MD Polyethylene Glycol 3350 (Polyethylene Glycol 3350) 17 Gm Powd.pack, 17 GM PO PRN DAILY PRN for CONSTIPATION for 30 Days, #30 Ref 11 Prescribed by: JOSSELIN ARCOS MD on 09/22/20 1014 Discontinued Medications Furosemide (Furosemide) 40 Mg Tablet, 40 MG PO DAILY for CHF for 30 Days, #60 Prescribed by: EMA ROGERS on 07/04/19 0856 Last Action: Discontinued on 09/17/20 1308 by FABI ADAMSON Justicifation of Admission Dx: Justifications for Admission: Justification of Admission Dx: Yes CHF: Hemodynamic Instability Comminuty Aquired Pneumonia: Hypoxemia JOSSELIN ARCOS MD Sep 22, 2020 10:17
[2020-09-22 10:55] VITALS: BP 152/79
--- NOTE | 2020-09-22 11:50 | NUR ---
Patient discharged home with self care today via wheelchair accompanied by transport. Patient is alert, stable, IV removed, and discharged paperwork given to patient. Patient verbalized understanding of followup and discharge instruction.
== END 2020-09-22 11:54 | disposition home or self-care (01) | DRG 291 ==
LOC: ER 12:01 → 2 SOUTH 15:15 → ER 18:45 → 2 SOUTH 09-17 13:54 → CVICU 09-20 16:50
PROVIDERS: ADMIT Family Medicine; ATTEND Family Medicine
DX: I13.0 Hypertensive heart and chronic kidney disease with heart failure and stage 1 through stage 4 chronic kidney disease, or unspecified chronic kidney disease (principal); I50.33 Acute on chronic diastolic (congestive) heart failure; I48.92 Unspecified atrial flutter; Z68.43 Body mass index [BMI] 50.0-59.9, adult; I16.0 Hypertensive urgency; E11.22 Type 2 diabetes mellitus with diabetic chronic kidney disease; E66.01 Morbid (severe) obesity due to excess calories; E78.00 Pure hypercholesterolemia, unspecified; E78.5 Hyperlipidemia, unspecified; I25.10 Atherosclerotic heart disease of native coronary artery without angina pectoris; I25.2 Old myocardial infarction; I48.0 Paroxysmal atrial fibrillation; I49.5 Sick sinus syndrome; I89.0 Lymphedema, not elsewhere classified; K59.03 Drug induced constipation; T40.2X5A Adverse effect of other opioids, initial encounter; Y92.89 Other specified places as the place of occurrence of the external cause; N18.9 Chronic kidney disease, unspecified; Z79.01 Long term (current) use of anticoagulants; Z82.5 Family history of asthma and other chronic lower respiratory diseases; Z87.891 Personal history of nicotine dependence; Z95.0 Presence of cardiac pacemaker; Z95.5 Presence of coronary angioplasty implant and graft; Z90.49 Acquired absence of other specified parts of digestive tract; Z88.8 Allergy status to other drugs, medicaments and biological substances; Z88.1 Allergy status to other antibiotic agents; Z91.041 Radiographic dye allergy status; M19.90 Unspecified osteoarthritis, unspecified site; Z20.822 Contact with and (suspected) exposure to COVID-19
CPT/HCPCS: 36415; 71045; 80048; 80053; 80061; 82962; 83735; 83880; 84443; 84484; 85025; 93005; 96374; 96375; J1815; J1940; J2270; J2405; J2765; J3490; U0003; 99285-25; G0378

== ENCOUNTER 2020-10-17 18:19 | Inpatient (IN) | payer MEDICARE ==
[~2020-10-17] VITALS: Ht 165.1 cm; Wt 140.4 kg
[~2020-10-17 18:19] MED LIST changes: +BUME1TAB3 PO; +DULO30CA44 PO; +GABA300C9 PO
--- NOTE | 2020-10-17 19:56 | PHYS DOC ---
Past Medical History Past Medical History: A-Fib, CAD, CHF, Diabetes-Type II, High Cholesterol, OR Additional Past Medical Histor: SEPSIS Past Surgical History: Cholecystectomy, Pacemaker Additional Past Surgical Histo: ROTATOR CUFF, HERNIA, CARDIAC STENT Smoking Status: Former Smoker Alcohol Use: None Drug Use: None General Adult EDM: Chief Complaint: SHORTNESS OF BREATH HPI: HPI: Patient is a 70 year old male present to ER for evaluation of trouble breathing for about 2 days. Patient has history of CHF, he is on Bumex, he also has history of atrial fibrillation, he is on amiodarone and Eliquis. Patient is on 2 L of oxygen at home as needed but he does not like to use it much. Patient denies any chest pain, no cough, no fever. Patient denies any COVID-19 exposur e. Patient was admitted here on September 16, 2020 due to trouble breathing and chest pain, he was tested negative for COVID-19. Patient was discharged home in stable condition. Patient has a history of noncompliant with his oxygen or his medication at home. Patient is a 70-year-old male and he lives at home with his mom. Review of Systems: Review of Systems: Constitutional: Denies fever or chills. [] Eyes: Denies change in visual acuity. [] HENT: Denies nasal congestion or sore throat. [] Respiratory: Denies cough, positive for trouble breathing. Cardiovascular: Denies chest pain or edema. [] GI: Denies abdominal pain, nausea, vomiting, bloody stools or diarrhea. [] : Denies dysuria. [] Musculoskeletal: Denies back pain or joint pain. [] Integument: Denies rash. [] Neurologic: Denies headache, focal weakness or sensory changes. [] Endocrine: Denies polyuria or polydipsia. [] Lymphatic: Denies swollen glands. [] Psychiatric: Denies depression or anxiety. [] Heart Score: Risk Factors: Risk Factors: DM, Current or recent (<one month) smoker, HTN, HLP, family history of CAD, obesity. Risk Scores: Score 0 - 3: 2.5% MACE over next 6 weeks - Discharge Home Score 4 - 6: 20.3% MACE over next 6 weeks - Admit for Clinical Observation Score 7 - 10: 72.7% MACE over next 6 weeks - Early Invasive Strategies Allergies: Allergies: Allergies Coded Allergies Type Severity Reaction Last Updated Verified vancomycin Allergy Severe Rash AND SOA 11/23/19 Yes I S O L A T I O N *CONTACT* Allergy Unknown 12/29/19 Yes Physical Exam: PE: Constitutional: Well developed, well nourished, no acute distress, non-toxic appearance. Obese obesity. HENT: Normocephalic, atraumatic, bilateral external ears normal, oropharynx moist, no oral exudates, nose normal. [] Eyes: PERRLA, EOMI, conjunctiva normal, no discharge. [] Neck: Normal range of motion, no tenderness, supple, no stridor. [] Cardiovascular:Heart rate regular rhythm, no murmur [] Lungs & Thorax: Bilateral breath sounds clear to auscultation [] Abdomen: Bowel sounds normal, soft, no tenderness, no masses, no pulsatile masses. [] Skin: Warm, dry, no erythema, no rash. [] Back: No tenderness, no CVA tenderness. [] Extremities: No tenderness, no cyanosis, no clubbing, ROM intact, bilateral lower extremity pitting edema 2+ Neurologic: Alert and oriented X 3, normal motor function, normal sensory function, no focal deficits noted. [] Psychologic: Affect normal, judgement normal, mood normal. [] Current Patient Data: Labs: Laboratory Tests Test 10/17/20 19:55 White Blood Count 16.3 x10^3/uL Red Blood Count 3.83 x10^6/uL Hemoglobin 10.6 g/dL Hematocrit 32.4 % Mean Corpuscular Volume 85 fL Mean Corpuscular Hemoglobin 28 pg Mean Corpuscular Hemoglobin Concent 33 g/dL Red Cell Distribution Width 14.5 % Platelet Count 681 x10^3/uL Neutrophils (%) (Auto) 83 % Lymphocytes (%) (Auto) 6 % Monocytes (%) (Auto) 9 % Eosinophils (%) (Auto) 1 % Basophils (%) (Auto) 1 % Neutrophils # (Auto) 13.6 x10^3/uL Lymphocytes # (Auto) 1.0 x10^3/uL Monocytes # (Auto) 1.4 x10^3/uL Eosinophils # (Auto) 0.2 x10^3/uL Basophils # (Auto) 0.1 x10^3/uL Segmented Neutrophils % 79 % Band Neutrophils % 4 % Lymphocytes % 5 % Monocytes % 11 % Eosinophils % 1 % Platelet Estimate Increased Large Platelets Mod Giant Platelets Occ Polychromasia Slight Sodium Level 140 mmol/L Potassium Level 3.7 mmol/L Chloride Level 102 mmol/L Carbon Dioxide Level 31 mmol/L Anion Gap 7 Blood Urea Nitrogen 24 mg/dL Creatinine 1.2 mg/dL Estimated GFR (Cockcroft-Gault) 60.2 BUN/Creatinine Ratio 20 Glucose Level 141 mg/dL Calcium Level 9.4 mg/dL Total Bilirubin 0.3 mg/dL Aspartate Amino Transf (AST/SGOT) 15 U/L Alanine Aminotransferase (ALT/SGPT) 32 U/L Alkaline Phosphatase 96 U/L Troponin I Quantitative < 0.017 ng/mL HZ-Tpa-L-Type Natriuretic Peptide 575 pg/mL Total Protein 7.9 g/dL Albumin 2.7 g/dL Albumin/Globulin Ratio 0.5 Current Medications Medications (Trade) Dose Ordered Sig/Lito Route PRN Reason Start Time Stop Time Status Last Admin Dose Admin Piperacillin Sod/ Tazobactam Sod 3.375 gm/Sodium Chloride 50 ml @ 100 mls/hr 1X ONCE IV 10/17/20 22:00 10/17/20 22:29 10/17/20 21:39 Morphine Sulfate (Morphine Sulfate) 4 mg 1X ONCE IV 10/17/20 21:45 10/17/20 21:46 10/17/20 21:38 Vital Signs: Vital Signs Date Time Temp Pulse Resp B/P (MAP) Pulse Ox O2 Delivery O2 Flow Rate FiO2 10/17/20 19:20 72 22 140/74 (96) 98 Nasal Cannula 3.0 EKG: EKG: EKG was done at 809 pm, heart rate of 71 beats per minutes, atrial flutter, no ST segment elevation. Radiology/Procedures: Radiology/Procedures: [][facility] [address] [place], [place] [id number] IMAGING REPORT Signed PATIENT: MALINDA LOPEZ ACCOUNT: [id number] : 1950 LOCATION: ER AGE: 70 SEX: M EXAM STATUS: REG ER ORD. PHYSICIAN: LOPEZ,PETER T DO REASON: soa PROCEDURE: PORTABLE CHEST 1V Chest AP portable at 2042: Reason for examination: Short of breath. Comparison is made to previous study dated 09/16/2020. Pacemaker remains present over the left hemithorax. Heart size continues to be enlarged. Mediastinum is unchanged. Lung lacy show some mild prominence of the pulmonary vasculature and there is some interstitial and alveolar opacities at the lung bases. There appear to be bilateral pleural effusions. This likely represents congestive heart failure. Recommend clinical correlation and follow- up. No acute bony abnormalities are evident. IMPRESSION: Cardiomegaly with prominence of the pulmonary vasculature and increased interstitial and alveolar opacities with bilateral pleural effusions. Changes suggest congestive heart failure. Recommend clinical correlation and follow-up. Electronically signed by: Letha Blood MD (10/17/2020 9:24 PM) [facility] DICTATED and SIGNED BY: LETHA BLOOD MD DATE: 10/17/20 [id number] Course & Med Decision Making: Course & Med Decision Making Pertinent Labs and Imaging studies reviewed. (See chart for details) Patient is a 70-year-old male who presented to ER for evaluation of trouble breathing with exertion, patient is suspected to have CHF exacerbation, chest x- ray show some infiltration, suspect to have pneumonia. Patient was admitted to the hospital recently, he is suspected to have COVID-19 infection as well. Patient will be admitted to hospital for further evaluation and treatment. Dragon Disclaimer: Dragon Disclaimer: This electronic medical record was generated, in whole or in part, using a voice recognition dictation system. Departure Departure Impression: Primary Impression: Acute on chronic diastolic (congestive) heart failure Additional Impressions: Pneumonia Person under investigation for COVID-19 Disposition: 09 ADMITTED INPT THIS HOSP Admitting Physician: CHALINO (Dr. TRAORE) Condition: STABLE Referrals: MARY DE LA ROSA MD (PCP) ALEC LOPEZ DO Oct 17, 2020 19:56
[2020-10-17 20:03] LABS: BASO # 0.1 x10^3/uL (0.0-0.2); BASO % 1 % (0-3); EOS # 0.2 x10^3/uL (0.0-0.7); EOS % 1 % (0-3); HEMATOCRIT 32.4 % (39.0-53.0); HEMOGLOBIN 10.6 g/dL (13.0-17.5); LYMPH % 6 % (24-48); MEAN CORPUSCULAR HEMOGLOBIN 28 pg (25-35); MEAN CORPUSCULAR HGB CONC 33 g/dL (31-37); MEAN CORPUSCULAR VOLUME 85 fL (79-100); MONO # 1.4 x10^3/uL (0.0-1.1); MONO % 9 % (0-9); NEUT # 13.6 x10^3/uL (1.8-7.7); NEUT % 83 % (31-73); PLATELET COUNT 681 x10^3/uL (140-400); RED BLOOD COUNT 3.83 x10^6/uL (4.30-5.70); RED CELL DISTRIBUTION WIDTH 14.5 % (11.5-14.5); WHITE BLOOD COUNT 16.3 x10^3/uL (4.0-11.0)
[2020-10-17 20:16] LABS: CALCIUM 9.4 mg/dL (8.5-10.1); CREATININE 1.2 mg/dL (0.7-1.3); GFR 60.2; POTASSIUM 3.7 mmol/L (3.5-5.1)
[2020-10-17 20:24] LABS: ALBUMIN 2.7 g/dL (3.4-5.0); ALBUMIN/GLOBULIN RATIO 0.5 (1.0-1.7); TOTAL BILIRUBIN 0.3 mg/dL (0.2-1.0); TOTAL PROTEIN 7.9 g/dL (6.4-8.2)
[2020-10-17 21:09] LABS: % BANDS 4 % (0-9); % EOS 1 % (0-5); % LYMPHS 5 % (24-48); % MONOS 11 % (0-10); % SEGS 79 % (35-66); PLT ESTIMATE INCREASED (ADEQUATE); POLYCHROMASIA SLIGHT
--- NOTE | 2020-10-17 21:30 | RAD ---
Chest AP portable at 2042: Reason for examination: Short of breath. Comparison is made to previous study dated 09/16/2020. Pacemaker remains present over the left hemithorax. Heart size continues to be enlarged. Mediastinum is unchanged. Lung lacy show some mild prominence of the pulmonary vasculature and there is some in terstitial and alveolar opacities at the lung bases. There appear to be bilateral pleural effusions. This likely represents congestive heart failure. Recommend clinical correlation and follow-up. No acu te bony abnormalities are evident. IMPRESSION: Cardiomegaly with prominence of the pulmonary vasculature and increased interstitial and alveolar opa cities with bilateral pleural effusions. Changes suggest congestive heart failure. Recommend clinical correlation and follow-up. Electronically signed by: Letha Newton MD (10/17/2020 9:24 PM) [facility]LA[facility]
[2020-10-17] MEDS ORDERED: MORPHINE SULFATE 4 MG/ML VIAL. IV ONE (21:45)
[2020-10-17] MEDS ORDERED: PIPERACILLIN/TAZOBACTAM 3.375 GM in IV NORMAL SALINE 50ML 50 ML IV ONE (22:00)
[2020-10-17] MEDS ORDERED: BUMETANIDE 1 MG/4 ML VIAL. IV ONE (23:00)
[2020-10-17] MEDS ORDERED: ONDANSETRON PF 4 MG/2 ML VIAL. IV PRN (23:15)
[2020-10-18] VITALS (7 sets, daily range): BP systolic 140–162; BP diastolic 72–85
--- NOTE | 2020-10-18 04:03 | EKG ---
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
[2020-10-18] MEDS: MORPHINE SULFATE 4 MG/ML VIAL. IV PRN ×4 (05:39→22:16)
--- NOTE | 2020-10-18 10:43 | PDOC2 ---
CONSULT Date of Consult Date of Consult DATE: 10/18/20 TIME: 10:43 Reason for Consult Reason for Consult: Congestive heart failure Referring Physician Referring Physician: Dr. Rothman Identification/Chief Complaint Chief Complaint Shortness of breath Source Source: Chart review, Patient History of Present Illness Reason for Visit: 70-year-old male with history of coronary artery disease, sick sinus syndrome s/p permanent pacemaker implantation, paroxysmal atrial fibrillation who was treated and discharged earlier this month for acute on chronic diastolic heart failure presented with progressive shortness of breath since last few days. He complained of orthopnea but denied any chest pain, palpitations or syncope. Upon further interrogation, patient stated that he has not been taking his medications since his discharge from the hospital. Past Medical History Cardiovascular: AFIB, CAD, CHF, HTN, Hyperlipidemia, Other Pulmonary: No pertinent hx GI: No pertinent hx Psych: No pertinent hx Musculoskeletal: low back pain, Osteoarthritis Renal/: Chronic renal insuff, Benign prostatic enlarg., Other Endocrine: No pertinent hx Past Surgical History Past Surgical History: Pacemaker, Arthroscopy, Cholecystectomy, Hernia Repair, Other Family History Family History: Chronic Bronchitis, Heart Disease, High Cholestrol Social History ALCOHOL: none Drugs: None Lives: with Family Current Problem List Problem List Problems Medical Problems: (1) Acute on chronic diastolic (congestive) heart failure Status: Acute (2) Person under investigation for COVID-19 Status: Acute (3) Pneumonia Status: Acute Current Medications Current Medications Current Medications Piperacillin Sod/ Tazobactam Sod 3.375 gm/Sodium Chloride 50 ml @ 100 mls/hr 1X ONCE IV Last administered on 10/17/20at 21:39; Start 10/17/20 at 22:00; Stop 10/17/20 at 22:29; Status DC Morphine Sulfate (Morphine Sulfate) 4 mg 1X ONCE IV Last administered on 10/17/20at 21:38; Start 10/17/20 at 21:45; Stop 10/17/20 at 21:46; Status DC Bumetanide (Bumex) 1 mg 1X ONCE IV Last administered on 10/17/20at 23:40; Start 10/17/20 at 23:00; Stop 10/17/20 at 23:01; Status DC Ondansetron HCl (Zofran) 4 mg PRN Q8HRS PRN IV NAUSEA/VOMITING 1ST CHOICE Last administered on 10/18/20at 09:23; Start 10/17/20 at 23:15; Stop 10/18/20 at 23:14 Morphine Sulfate (Morphine Sulfate) 4 mg PRN Q2HR PRN IV SEVERE PAIN 7-10 Last administered on 10/18/20at 05:39; Start 10/17/20 at 23:15; Stop 10/18/20 at 23:14 Active Scripts Active Bumetanide 1 Mg Tablet 1 Mg PO DAILY 30 Days Polyethylene Glycol 3350 17 Gm Powd.pack 17 Gm PO PRN DAILY PRN 30 Days Klor-Con M20 (Potassium Chloride) 20 Meq Tab.er.prt 1 Tab PO DAILY 30 Days Metoprolol Tartrate 25 Mg Tablet 1 Tab PO BID Metformin Hcl 500 Mg Tablet 500 Mg PO BIDWMEALS 30 Days Eliquis (Apixaban) 5 Mg Tablet 5 Mg PO BID 30 Days Reported Duloxetine Hcl 30 Mg Capsule.dr 1 Cap PO DAILY 90 Days Gabapentin 300 Mg Capsule 1 Cap PO TID 90 Days Famotidine 20 Mg Tablet 20 Mg PO BID Novolog Flexpen (Insulin Aspart) 100 Unit/1 Ml Insuln.pen 15 Unit SQ TIDBFRMEAL Robaxin-750 (Methocarbamol) 750 Mg Tablet 500 Mg PO TID PRN PRN Hydrocodone-Apap 7.5-325 (Hydrocodone Bit/Acetaminophen) 1 Tab Tablet 1 Tab PO PRN Q6HRS PRN Aspir 81 (Aspirin) 81 Mg Tablet.dr 81 Mg PO DAILY Fenofibrate (Fenofibrate,Micronized) 134 Mg Capsule 134 Mg PO DAILY Atorvastatin Calcium 40 Mg Tablet 40 Mg PO HS Amiodarone Hcl 200 Mg Tablet 200 Mg PO DAILY Allergies Allergies: Coded Allergies: vancomycin (Verified Allergy, Severe, Rash AND SOA, 11/23/19) I S O L A T I O N *CONTACT* (Verified Allergy, Unknown, 12/29/19) ESBL ROS PSYCHOLOGICAL ROS: No: Hallucinations Eyes: No Loss of vision HEENT: No: Epistaxis Respiratory: YES: Orthopnea, Shortness of breath Cardiovascular: No Chest Pain Gastrointestinal: No Vomiting Genitourinary: No Hematuria Neurological: No Seizures Physical Exam General: Alert, mild distress Lungs: Other (Decreased air entry at bases, bilateral scattered crepitations) Heart: Regular rate Abdomen: Soft Extremities: No edema (2+ pitting pedal edema) Neuro: Normal speech Psych/Mental Status: Mood NL Vitals VITALS Vital Signs Date Time Temp Pulse Resp B/P (MAP) Pulse Ox O2 Delivery O2 Flow Rate FiO2 10/18/20 10:40 98.0 94 18 145/79 (101) 96 Nasal Cannula 2.0 98.0 Labs Labs Laboratory Tests Test 10/17/20 19:55 10/17/20 23:50 White Blood Count 16.3 x10^3/uL (4.0-11.0) Red Blood Count 3.83 x10^6/uL (4.30-5.70) Hemoglobin 10.6 g/dL (13.0-17.5) Hematocrit 32.4 % (39.0-53.0) Mean Corpuscular Volume 85 fL (79-100) Mean Corpuscular Hemoglobin 28 pg (25-35) Mean Corpuscular Hemoglobin Concent 33 g/dL (31-37) Red Cell Distribution Width 14.5 % (11.5-14.5) Platelet Count 681 x10^3/uL (140-400) Neutrophils (%) (Auto) 83 % (31-73) Lymphocytes (%) (Auto) 6 % (24-48) Monocytes (%) (Auto) 9 % (0-9) Eosinophils (%) (Auto) 1 % (0-3) Basophils (%) (Auto) 1 % (0-3) Neutrophils # (Auto) 13.6 x10^3/uL (1.8-7.7) Lymphocytes # (Auto) 1.0 x10^3/uL (1.0-4.8) Monocytes # (Auto) 1.4 x10^3/uL (0.0-1.1) Eosinophils # (Auto) 0.2 x10^3/uL (0.0-0.7) Basophils # (Auto) 0.1 x10^3/uL (0.0-0.2) Segmented Neutrophils % 79 % (35-66) Band Neutrophils % 4 % (0-9) Lymphocytes % 5 % (24-48) Monocytes % 11 % (0-10) Eosinophils % 1 % (0-5) Platelet Estimate Increased (ADEQUATE) Large Platelets Mod Giant Platelets Occ Polychromasia Slight Sodium Level 140 mmol/L (136-145) Potassium Level 3.7 mmol/L (3.5-5.1) Chloride Level 102 mmol/L (98-107) Carbon Dioxide Level 31 mmol/L (21-32) Anion Gap 7 (6-14) Blood Urea Nitrogen 24 mg/dL (8-26) Creatinine 1.2 mg/dL (0.7-1.3) Estimated GFR (Cockcroft-Gault) 60.2 BUN/Creatinine Ratio 20 (6-20) Glucose Level 141 mg/dL (70-99) Calcium Level 9.4 mg/dL (8.5-10.1) Total Bilirubin 0.3 mg/dL (0.2-1.0) Aspartate Amino Transf (AST/SGOT) 15 U/L (15-37) Alanine Aminotransferase (ALT/SGPT) 32 U/L (16-63) Alkaline Phosphatase 96 U/L (46-116) Troponin I Quantitative < 0.017 ng/mL (0.000-0.055) PV-Xvk-E-Type Natriuretic Peptide 575 pg/mL (0-124) Total Protein 7.9 g/dL (6.4-8.2) Albumin 2.7 g/dL (3.4-5.0) Albumin/Globulin Ratio 0.5 (1.0-1.7) Lactic Acid Level 1.0 mmol/L (0.4-2.0) Laboratory Tests Test 10/17/20 19:55 10/17/20 23:50 White Blood Count 16.3 x10^3/uL (4.0-11.0) Red Blood Count 3.83 x10^6/uL (4.30-5.70) Hemoglobin 10.6 g/dL (13.0-17.5) Hematocrit 32.4 % (39.0-53.0) Mean Corpuscular Volume 85 fL (79-100) Mean Corpuscular Hemoglobin 28 pg (25-35) Mean Corpuscular Hemoglobin Concent 33 g/dL (31-37) Red Cell Distribution Width 14.5 % (11.5-14.5) Platelet Count 681 x10^3/uL (140-400) Neutrophils (%) (Auto) 83 % (31-73) Lymphocytes (%) (Auto) 6 % (24-48) Monocytes (%) (Auto) 9 % (0-9) Eosinophils (%) (Auto) 1 % (0-3) Basophils (%) (Auto) 1 % (0-3) Neutrophils # (Auto) 13.6 x10^3/uL (1.8-7.7) Lymphocytes # (Auto) 1.0 x10^3/uL (1.0-4.8) Monocytes # (Auto) 1.4 x10^3/uL (0.0-1.1) Eosinophils # (Auto) 0.2 x10^3/uL (0.0-0.7) Basophils # (Auto) 0.1 x10^3/uL (0.0-0.2) Segmented Neutrophils % 79 % (35-66) Band Neutrophils % 4 % (0-9) Lymphocytes % 5 % (24-48) Monocytes % 11 % (0-10) Eosinophils % 1 % (0-5) Platelet Estimate Increased (ADEQUATE) Large Platelets Mod Giant Platelets Occ Polychromasia Slight Sodium Level 140 mmol/L (136-145) Potassium Level 3.7 mmol/L (3.5-5.1) Chloride Level 102 mmol/L (98-107) Carbon Dioxide Level 31 mmol/L (21-32) Anion Gap 7 (6-14) Blood Urea Nitrogen 24 mg/dL (8-26) Creatinine 1.2 mg/dL (0.7-1.3) Estimated GFR (Cockcroft-Gault) 60.2 BUN/Creatinine Ratio 20 (6-20) Glucose Level 141 mg/dL (70-99) Calcium Level 9.4 mg/dL (8.5-10.1) Total Bilirubin 0.3 mg/dL (0.2-1.0) Aspartate Amino Transf (AST/SGOT) 15 U/L (15-37) Alanine Aminotransferase (ALT/SGPT) 32 U/L (16-63) Alkaline Phosphatase 96 U/L (46-116) Troponin I Quantitative < 0.017 ng/mL (0.000-0.055) DY-Rhk-R-Type Natriuretic Peptide 575 pg/mL (0-124) Total Protein 7.9 g/dL (6.4-8.2) Albumin 2.7 g/dL (3.4-5.0) Albumin/Globulin Ratio 0.5 (1.0-1.7) Lactic Acid Level 1.0 mmol/L (0.4-2.0) Assessment/Plan Assessment/Plan 1. Mild acute on chronic diastolic heart failure probably secondary to noncompliance. BNP level only slightly elevated. Chest x-ray consistent with CHF. Physical findings and BNP level not consistent with severity of his symptoms. Agree with ruling out Covid due to recent hospital admission although clinical suspicion low. Recent 2D echo in February 2020 showed normal LV systolic function with EF 55 to 60%. Continue diuresis with Bumex. 2. Accelerated hypertension, secondary to noncompliance. Resume home medications and titrate for better control. 3. PAFIB; presently SR. resume amiodarone for rhythm maintenance and Eliquis for stroke prophylaxis. 4. CAD s/p PCI/stents to LCx/LAD. Recent MPI did not show any significant ischemia. Continue current secondary prevention measures. 5. SSS, tachy-rhina; s/p PPM ([employer]): Recent device interrogation showed normal function. 6. Diabetes, II: Treat per IM. 7. Hyperlipidemia; statin 8. Chronic lymphedema 9. Constipation; as per IM Thank you for your consultation. JAIMIE GILMAN MD Oct 18, 2020 10:43
--- NOTE | 2020-10-18 12:02 | HP ---
ADMIT DATE: 10/17/2020 CHIEF COMPLAINT: Shortness of breath. HISTORY OF PRESENT ILLNESS: The patient is a pleasant 70-year-old male who presented to the ER with shortness of breath that has been occurring for 2 days, rated at 7/10, worse with movement, better with sitting, still increased his home meds, but that did not work. He is on home oxygen as well. Basically in the ER, we have done some diagnostics and appears he is in heart failure. He has an elevated BNP of 575. His chest x-ray is showing some vascular congestion. I discussed the case with ER physician. We are going to admit the patient and consult Cardiology. PAST MEDICAL HISTORY: CHF, AFib, diabetes, hypertension, myocardial infarction, hyperlipidemia, CAD, sepsis, cholecystectomy, pacemaker, rotator cuff repair, cardiac stents, overweight. ALLERGIES: VANCOMYCIN. FAMILY HISTORY: Diabetes. SOCIAL HISTORY: He quit smoking, no drinking or drugs. MEDICATIONS: Reviewed, please refer to the MRAD. REVIEW OF SYSTEMS: GENERAL: No history of weight change, weakness or fevers. SKIN: No bruising, hair changes or rashes. EYES: No blurred, double or loss of vision. NOSE AND THROAT: No history of nosebleeds, hoarseness or sore throat. HEART: No history of palpitations, chest pain or shortness of breath on exertion. LUNGS: He complains of shortness of breath. GASTROINTESTINAL: Denies changes in appetite, nausea, vomiting, diarrhea or constipation. GENITOURINARY: No history of frequency, urgency, hesitancy or nocturia. NEUROLOGIC: Denies history of numbness, tingling, tremor or weakness. PSYCHIATRIC: No history of panic, anxiety or depression. ENDOCRINE: No history of heat or cold intolerance, polyuria or polydipsia. EXTREMITIES: Denies muscle weakness, joint pain, pain on walking or stiffness. PHYSICAL EXAMINATION: VITALS: Within normal limits and are stable. GENERAL: No apparent distress. Alert and oriented. HEENT: Normal cephalic atraumatic, external auditory canals are patent EYES: Extraocular muscles are intact, pupils are equally round and reactive to light and accommodation MUSCULOSKELETAL: Well developed, well nourished, good range of motion ENDOCRINE: No thyromegaly was palpated LYMPHATICS: No cervical chain or axillary nodes were noted HEMATOPOIETIC: No bruising NECK: Supple, no JVD, no thyromegaly was noted. LUNGS: He has bibasilar crackles. HEART: RRR, S1, S2 present. Peripheral pulses intact, no obvious murmurs were noted. ABDOMEN: Soft, nontender. Positive bowel sounds no organomegaly, normal bowel sounds. EXTREMITIES: Without any cyanosis, clubbing, or edema. Pedal pulses intact, Homans sign is negative. NEUROLOGIC: Normal speech, normal tone. A & O x3, moves all extremities, no obvious focal deficits. PSYCHIATRIC: Normal affect, normal mood. Stable. SKIN: No ulcerations or rashes, good skin turgor, no jaundice. VASCULAR: Good capillary refill, neurovascular bundle appears to be intact. LABORATORY DATA: White count 16, hemoglobin 10.6, platelets 681. Electrolytes are normal. Troponin is 0.017. BNP 575. Chest x-ray shows vascular congestion with cardiomegaly and bilateral pleural effusions. ASSESSMENT AND PLAN: Acute on chronic systolic and diastolic heart failure. The patient has been admitted. We are going to use IV Lasix, cardiac monitoring, serial enzymes, serial EKGs, rule out COVID-19. Home meds, DVT prophylaxis. Full code. Long-term prognosis is guarded. RODRIGO TRAORE DO DR: DANIEL/vinayak JOB#: [id number] / [id number]
[2020-10-18] MEDS: ANTI-COAG MONITOR BY PHARMACY. MC PRN (15:10)
[2020-10-18] MEDS: BUMETANIDE 1 MG TABLET. PO SCH (15:16)
[2020-10-18] MEDS: GABAPENTIN 300 MG CAPSULE. PO SCH ×2 (15:16→22:15)
[2020-10-18] MEDS: POTASSIUM CHLORIDE 20 MEQ TABLET.ER. PO SCH (15:16)
[2020-10-18] MEDS: FENOFIBRATE,MICRONIZED 134 MG CAPSULE PO SCH (15:17)
[2020-10-18] MEDS: ASPIRIN ENTERIC COATED 81 MG TABLET.DR. PO SCH (15:17)
[2020-10-18] MEDS: AMIODARONE HCL 200 MG TABLET. PO SCH (15:18)
[2020-10-18] MEDS: INSULIN LISPRO 300 UNITS/3 ML VIAL. SQ SCH (16:30)
[2020-10-18] MEDS: metFORMIN 500 MG TABLET PO SCH (18:05)
[2020-10-18] MEDS: METOPROLOL TART IMMED RELEASE 25 MG TABLET. PO SCH (22:15)
[2020-10-18] MEDS: FAMOTIDINE 20 MG TABLET. PO SCH (22:15)
[2020-10-18] MEDS: APIXABAN 5 MG TABLET. PO SCH (22:15)
[2020-10-18] MEDS: ATORVASTATIN CALCIUM 40 MG TABLET. PO SCH (22:15)
[2020-10-18] MEDS: DULoxetine HCL 30 MG CAPSULE.DR PO SCH (22:15)
[2020-10-18] MEDS: HYDROcodone/APAP 7.5/325MG 1 TAB TABLET PO PRN (22:16)
[2020-10-19 03:07] VITALS: BP 142/75
--- NOTE | 2020-10-19 06:58 | PDOC ---
[facility] PROGRESS NOTE Date of Service DOS: DATE: 10/19/20 TIME: 06:54 Chief Complaint Chief Complaint Acute on chronic systolic and diastolic heart failure Sepsis, r/o Continue diuresis Cardiac monitoring Serial enzymes COVID-19 pending DVT prophylaxis: Becky Full code Long-term prognosis is guarded History of Present Illness History of Present Illness The patient is a pleasant 70-year-old male who presented to the ER with shortness of breath that has been occurring for 2 days, rated at 7/10, worse with movement, better with sitting, still increased his home meds, but that did not work. He is on home oxygen as well. Basically in the ER, we have done some diagnostics and appears he is in heart failure. He has an elevated BNP of 575. His chest x-ray is showing some vascular congestion. I discussed the case with ER physician. We are going to admit the patient and consult Cardiology. 10/19: Patient seen and evaluated. He is afebrile. Continue diuresis with oral Bumex; monitor I's&O's, daily weights. Discussed fluid restriction with patient. Gram-positive cocci in clusters noted in 1 of 4 bottles, suspect probable contaminant. WBC improving from yesterday. Consultation placed to ID. Vitals/I&O Vitals/I&O: Vital Signs Date Time Temp Pulse Resp B/P (MAP) Pulse Ox O2 Delivery O2 Flow Rate FiO2 10/19/20 03:07 98.0 98 18 142/75 (97) 91 Nasal Cannula 2.0 98.0 I & O 10/18/20 10/18/20 10/19/20 15:00 23:00 07:00 Intake Total 360 ml 1000 ml 0 ml Output Total 300 ml 650 ml 150 ml Balance 60 ml 350 ml -150 ml Physical Exam General: Alert, No acute distress Heart: Regular rate Lungs: Crackles (Faint crackles, decreased breath sounds) Abdomen: Soft Extremities: No clubbing, No cyanosis, Other (+3 bilateral lower extremity edema) Skin: No rashes, No breakdown Labs Labs: Laboratory Tests Test 10/18/20 16:18 Glucose (Fingerstick) 127 mg/dL (70-99) Assessment and Plan Assessmemt and Plan Problems Medical Problems: (1) Acute on chronic diastolic (congestive) heart failure Status: Acute (2) Person under investigation for COVID-19 Status: Acute (3) Pneumonia Status: Acute Comment Review of Relevant I have reviewed the following items ashwini (where applicable) has been applied. Medications: Current Medications Medications (Trade) Dose Ordered Sig/Lito Route PRN Reason Start Time Stop Time Status Last Admin Dose Admin Amiodarone HCl (Cordarone) 200 mg DAILY PO 10/18/20 16:00 10/18/20 15:18 Apixaban (Eliquis) 5 mg BID PO 10/18/20 21:00 10/18/20 22:15 Aspirin (Ecotrin) 81 mg DAILY PO 10/18/20 16:00 10/18/20 15:17 Atorvastatin Calcium (Lipitor) 40 mg HS PO 10/18/20 21:00 10/18/20 22:15 Bumetanide (Bumex) 1 mg DAILY PO 10/18/20 16:00 10/18/20 15:16 Famotidine (Pepcid) 20 mg BID PO 10/18/20 21:00 10/18/20 22:15 Fenofibrate (Lofibra) 134 mg DAILY PO 10/18/20 16:00 10/18/20 15:17 Gabapentin (Neurontin) 300 mg TID PO 10/18/20 16:00 10/18/20 22:15 Metformin HCl (Glucophage) 500 mg BIDWMEALS PO 10/18/20 17:00 10/18/20 18:05 Metoprolol Tartrate (Lopressor) 25 mg BID PO 10/18/20 21:00 10/18/20 22:15 Potassium Chloride (Klor-Con) 20 meq DAILY PO 10/18/20 16:00 10/18/20 15:16 Info (Anti-Coagulation Monitoring By Pharmacy) 1 each PRN DAILY PRN MC SEE COMMENTS 10/18/20 15:15 10/18/20 15:10 Duloxetine HCl (Cymbalta) 30 mg QHS PO 10/18/20 21:00 10/18/20 22:15 Acetaminophen/ Hydrocodone Bitart (Lortab 7.5/325) 1 tab PRN Q6HRS PRN PO MODERATE PAIN 4-6 10/18/20 21:00 10/18/20 22:16 Justifications for Admission Other Justification NAOMI PETERSON MD Oct 19, 2020 06:57
[2020-10-19 07:00] VITALS: BP 146/76
[2020-10-19] MEDS: INSULIN LISPRO 300 UNITS/3 ML VIAL. SQ SCH ×3 (07:30→16:30)
[2020-10-19] MEDS: metFORMIN 500 MG TABLET PO SCH ×2 (08:48→16:34)
[2020-10-19] MEDS: FENOFIBRATE,MICRONIZED 134 MG CAPSULE PO SCH (08:48)
[2020-10-19] MEDS: FAMOTIDINE 20 MG TABLET. PO SCH ×2 (08:48→21:38)
[2020-10-19] MEDS: ASPIRIN ENTERIC COATED 81 MG TABLET.DR. PO SCH (08:48)
[2020-10-19] MEDS: BUMETANIDE 1 MG TABLET. PO SCH (08:49)
[2020-10-19] MEDS: APIXABAN 5 MG TABLET. PO SCH ×2 (08:49→21:39)
[2020-10-19] MEDS: METOPROLOL TART IMMED RELEASE 25 MG TABLET. PO SCH ×2 (08:49→21:39)
[2020-10-19] MEDS: GABAPENTIN 300 MG CAPSULE. PO SCH ×3 (08:49→21:38)
[2020-10-19] MEDS: AMIODARONE HCL 200 MG TABLET. PO SCH (08:49)
[2020-10-19] MEDS: POTASSIUM CHLORIDE 20 MEQ TABLET.ER. PO SCH (08:49)
[2020-10-19 08:58] LABS: BASO # 0.1 x10^3/uL (0.0-0.2); BASO % 1 % (0-3); EOS # 0.3 x10^3/uL (0.0-0.7); EOS % 3 % (0-3); HEMATOCRIT 33.4 % (39.0-53.0); HEMOGLOBIN 10.8 g/dL (13.0-17.5); LYMPH # 1.5 x10^3/uL (1.0-4.8); LYMPH % 13 % (24-48); MEAN CORPUSCULAR HEMOGLOBIN 28 pg (25-35); MEAN CORPUSCULAR HGB CONC 33 g/dL (31-37); MEAN CORPUSCULAR VOLUME 86 fL (79-100); MONO % 9 % (0-9); NEUT # 8.2 x10^3/uL (1.8-7.7); NEUT % 74 % (31-73); PLATELET COUNT 711 x10^3/uL (140-400); RED BLOOD COUNT 3.89 x10^6/uL (4.30-5.70); RED CELL DISTRIBUTION WIDTH 14.8 % (11.5-14.5); WHITE BLOOD COUNT 11.1 x10^3/uL (4.0-11.0)
[2020-10-19 09:09] LABS: CALCIUM 9.8 mg/dL (8.5-10.1); CREATININE 1.2 mg/dL (0.7-1.3); GFR 60.2
--- NOTE | 2020-10-19 10:29 | PDOC ---
Infectious Disease Note Vital Sign Vital Signs Vital Signs Date Time Temp Pulse Resp B/P (MAP) Pulse Ox O2 Delivery O2 Flow Rate FiO2 10/19/20 08:49 72 146/76 10/19/20 07:00 98.0 22 92 Nasal Cannula 2.0 98.0 Labs Lab Laboratory Tests Test 10/18/20 16:18 10/19/20 08:00 10/19/20 08:03 Glucose (Fingerstick) 127 mg/dL (70-99) 110 mg/dL (70-99) White Blood Count 11.1 x10^3/uL (4.0-11.0) Red Blood Count 3.89 x10^6/uL (4.30-5.70) Hemoglobin 10.8 g/dL (13.0-17.5) Hematocrit 33.4 % (39.0-53.0) Mean Corpuscular Volume 86 fL (79-100) Mean Corpuscular Hemoglobin 28 pg (25-35) Mean Corpuscular Hemoglobin Concent 33 g/dL (31-37) Red Cell Distribution Width 14.8 % (11.5-14.5) Platelet Count 711 x10^3/uL (140-400) Neutrophils (%) (Auto) 74 % (31-73) Lymphocytes (%) (Auto) 13 % (24-48) Monocytes (%) (Auto) 9 % (0-9) Eosinophils (%) (Auto) 3 % (0-3) Basophils (%) (Auto) 1 % (0-3) Neutrophils # (Auto) 8.2 x10^3/uL (1.8-7.7) Lymphocytes # (Auto) 1.5 x10^3/uL (1.0-4.8) Monocytes # (Auto) 1.0 x10^3/uL (0.0-1.1) Eosinophils # (Auto) 0.3 x10^3/uL (0.0-0.7) Basophils # (Auto) 0.1 x10^3/uL (0.0-0.2) Sodium Level 142 mmol/L (136-145) Potassium Level 5.0 mmol/L (3.5-5.1) Chloride Level 102 mmol/L (98-107) Carbon Dioxide Level 31 mmol/L (21-32) Anion Gap 9 (6-14) Blood Urea Nitrogen 30 mg/dL (8-26) Creatinine 1.2 mg/dL (0.7-1.3) Estimated GFR (Cockcroft-Gault) 60.2 Glucose Level 113 mg/dL (70-99) Calcium Level 9.8 mg/dL (8.5-10.1) Micro Microbiology 10/17/20 Blood Culture - Preliminary, Resulted NO GROWTH AFTER 1 DAY Objective Assessment pt seen, consult dictated Plan Plan of Care / JAMEY SAMUELS MD Oct 19, 2020 10:29
[2020-10-19 11:07] VITALS: BP 121/69
--- NOTE | 2020-10-19 12:19 | CONS ---
DATE OF CONSULTATION: 10/19/2020 REQUESTING PHYSICIAN: Dr. Vo. REASON FOR CONSULTATION: Blood culture positive. HISTORY OF PRESENT ILLNESS: This is a 70-year-old gentleman with morbid obesity, congestive heart failure, atrial fibrillation, diabetes, noncompliance, who comes in with shortness of breath. The patient was found to be in congestive heart failure as usual. The patient had no fever, nausea, vomiting, diarrhea. The patient's blood culture done for whatever reason / is positive with Gram-positive cocci, hence consultation. The patient is sitting up in chair and very comfortable. PAST MEDICAL HISTORY: Positive for congestive heart failure, diabetes, hypertension, obesity, myocardial infarction, hyperlipidemia, has had cholecystectomy, pacemaker in place and rotator cuff surgery. SOCIAL HISTORY: Negative for smoking, alcohol or illicit drug use. ALLERGIES: LISTED ALLERGIC TO VANCOMYCIN. CURRENT MEDICATIONS: Reviewed. REVIEW OF SYSTEMS: As per HPI, all other systems reviewed are negative. PHYSICAL EXAMINATION: GENERAL: Alert and oriented gentleman, not in distress. VITAL SIGNS: Temperature 98.0, pulse 72, respirations 22, blood pressure 146/76. The patient is not in distress. HEENT: Both pupils are round and reacting. No conjunctival lesion, no lesion in the mouth. NECK: Supple, no JVP, no lymphadenopathy. LUNGS: Clear. HEART: S1, S2 regular. ABDOMEN: Soft, nontender. EXTREMITIES: Bilateral pitting edema present. Also, bilateral venous insufficiency changes present. NEUROLOGIC: The patient is alert, awake and appropriate. No focal neurologic deficit. LABORATORY DATA: White count on admission was 16,000 and is down to 11,000. BUN and creatinine is 30 and 1.2. Urinalysis not done. Blood culture 1/4 Gram-positive cocci in clusters. Chest x-ray is cardiomegaly with pulmonary vascular congestion. IMPRESSION: 1. Blood culture positive 1/4 gram-positive cocci, most likely to be contaminant. We will follow to make sure the species identification is in favor of contaminant. 2. Congestive heart failure. 3. Obesity. 4. Coronary artery disease. 5. Diabetes. 6. Hypertension. 7. Noncompliance. RECOMMENDATIONS: We do not see the need for any antibiotics. Supportive care and we will continue to follow. Thank you very much, Dr. Vo for giving me the opportunity to participate in this patient's care. JAMEY SAMUELS MD DR: JESSICA/vinayak JOB#: [id number] / [id number]
[2020-10-19 14:37] VITALS: BP 140/79
--- NOTE | 2020-10-19 14:39 | PDOC ---
PROGRESS NOTES Date of Service: DATE: 10/19/20 TIME: 14:37 Subjective Subjective Dyspnea slightly improved. Objective Objective Vital Signs Date Time Temp Pulse Resp B/P (MAP) Pulse Ox O2 Delivery O2 Flow Rate FiO2 10/19/20 11:07 97.6 63 22 121/69 (86) 95 Nasal Cannula 2.0 97.6 Intake and Output 10/19/20 07:00 Intake Total 1360 ml Output Total 1100 ml Balance 260 ml Intake Oral 1360 ml Output Urine Total 1100 ml Physical Exam Abdomen: Soft Heart: Regular rate Extremities: No clubbing, No cyanosis, Other (+3 bilateral lower extremity edema) General: Alert, No acute distress Lungs: Other Neuro: Normal speech Psych/Mental Status: Mood NL Skin: No rashes, No breakdown Assessment Assessment 1. Mild acute on chronic diastolic heart failure probably secondary to noncompliance. BNP level only slightly elevated. Chest x-ray consistent with CHF. Covid test negative. Recent 2D echo in February 2020 showed normal LV systolic function with EF 55 to 60%. Continue diuresis with Bumex. 2. Accelerated hypertension, secondary to noncompliance. Better controlled after resuming home antihypertensives. 3. PAFIB; presently SR. telemetry showed few episodes of atrial fibrillation/flutter probably since patient has not been taking his amiodarone. This has been resumed yesterday for rhythm maintenance. If he continues to have paroxysms, we will give him a loading dose. Continue Eliquis for stroke prophylaxis. 4. CAD s/p PCI/stents to LCx/LAD. Recent MPI did not show any significant ischemia. Continue current secondary prevention measures. 5. SSS, tachy-rhina; s/p PPM (Medtronic): Recent device interrogation showed normal function. 6. Diabetes, II: Treat per IM. 7. Hyperlipidemia; statin 8. Chronic lymphedema 9. Positive blood cultures, probably contaminant per ID. Plan Plan of Care Problems Medical Problems: (1) Acute on chronic diastolic (congestive) heart failure Status: Acute (2) Person under investigation for COVID-19 Status: Acute (3) Pneumonia Status: Acute Comment Review of Relevant I have reviewed the following items ashwini (where applicable) has been applied. Labs Laboratory Tests Test 10/18/20 16:18 10/19/20 08:00 10/19/20 08:03 10/19/20 11:36 Glucose (Fingerstick) 127 mg/dL (70-99) 110 mg/dL (70-99) 110 mg/dL (70-99) White Blood Count 11.1 x10^3/uL (4.0-11.0) Red Blood Count 3.89 x10^6/uL (4.30-5.70) Hemoglobin 10.8 g/dL (13.0-17.5) Hematocrit 33.4 % (39.0-53.0) Mean Corpuscular Volume 86 fL (79-100) Mean Corpuscular Hemoglobin 28 pg (25-35) Mean Corpuscular Hemoglobin Concent 33 g/dL (31-37) Red Cell Distribution Width 14.8 % (11.5-14.5) Platelet Count 711 x10^3/uL (140-400) Neutrophils (%) (Auto) 74 % (31-73) Lymphocytes (%) (Auto) 13 % (24-48) Monocytes (%) (Auto) 9 % (0-9) Eosinophils (%) (Auto) 3 % (0-3) Basophils (%) (Auto) 1 % (0-3) Neutrophils # (Auto) 8.2 x10^3/uL (1.8-7.7) Lymphocytes # (Auto) 1.5 x10^3/uL (1.0-4.8) Monocytes # (Auto) 1.0 x10^3/uL (0.0-1.1) Eosinophils # (Auto) 0.3 x10^3/uL (0.0-0.7) Basophils # (Auto) 0.1 x10^3/uL (0.0-0.2) Sodium Level 142 mmol/L (136-145) Potassium Level 5.0 mmol/L (3.5-5.1) Chloride Level 102 mmol/L (98-107) Carbon Dioxide Level 31 mmol/L (21-32) Anion Gap 9 (6-14) Blood Urea Nitrogen 30 mg/dL (8-26) Creatinine 1.2 mg/dL (0.7-1.3) Estimated GFR (Cockcroft-Gault) 60.2 Glucose Level 113 mg/dL (70-99) Calcium Level 9.8 mg/dL (8.5-10.1) Microbiology 10/17/20 Blood Culture - Preliminary, Resulted NO GROWTH AFTER 1 DAY Medications Current Medications Acetaminophen/ Hydrocodone Bitart (Lortab 7.5/325) 1 tab PRN Q6HRS PRN PO MODERATE PAIN 4-6 Last administered on 10/18/20at 22:16; Start 10/18/20 at 21:00 Amiodarone HCl (Cordarone) 200 mg DAILY PO Last administered on 10/19/20 08:49; Start 10/18/20 at 16:00 Apixaban (Eliquis) 5 mg BID PO Last administered on 10/19/20at 08:49; Start 10/18/20 at 21:00 Aspirin (Ecotrin) 81 mg DAILY PO Last administered on 10/19/20at 08:48; Start 10/18/20 at 16:00 Atorvastatin Calcium (Lipitor) 40 mg HS PO Last administered on 10/18/20at 22:15; Start 10/18/20 at 21:00 Bumetanide (Bumex) 1 mg DAILY PO Last administered on 10/19/20at 08:49; Start 10/18/20 at 16:00 Duloxetine HCl (Cymbalta) 30 mg QHS PO Last administered on 10/18/20at 22:15; Start 10/18/20 at 21:00 Famotidine (Pepcid) 20 mg BID PO Last administered on 10/19/20at 08:48; Start 10/18/20 at 21:00 Fenofibrate (Lofibra) 134 mg DAILY PO Last administered on 10/19/20at 08:48; Start 10/18/20 at 16:00 Gabapentin (Neurontin) 300 mg TID PO Last administered on 10/19/20at 08:49; Start 10/18/20 at 16:00 Info (Anti-Coagulation Monitoring By Pharmacy) 1 each PRN DAILY PRN MC SEE C OMMENTS Last administered on 10/18/20at 15:10; Start 10/18/20 at 15:15 Insulin Human Lispro (HumaLOG) 15 units TIDBFRMEAL SQ ; Start 10/18/20 at 16:30 Metformin HCl (Glucophage) 500 mg BIDWMEALS PO Last administered on 10/19/20at 08:48; Start 10/18/20 at 17:00 Metoprolol Tartrate (Lopressor) 25 mg BID PO Last administered on 10/19/20at 08:49; Start 10/18/20 at 21:00 Potassium Chloride (Klor-Con) 20 meq DAILY PO Last administered on 10/19/20at 08:49; Start 10/18/20 at 16:00 Vitals/I & O Vital Sign - Last 24 Hours 10/18/20 10/18/20 10/18/20 10/18/20 15:18 18:29 19:00 19:49 Temp 98.3 98.3 Pulse 85 81 Resp 20 20 18 B/P (MAP) 162/72 148/80 (102) Pulse Ox 95 90 90 O2 Delivery Nasal Cannula Nasal Cannula Nasal Cannula O2 Flow Rate 2.0 2.0 2.0 10/18/20 10/18/20 10/18/20 10/18/20 19:50 22:15 22:16 22:16 Pulse 81 Resp 20 20 B/P (MAP) 148/80 Pulse Ox 90 90 O2 Delivery Room Air Nasal Cannula Nasal Cannula O2 Flow Rate 2.0 2.0 10/18/20 10/18/20 10/19/20 10/19/20 22:55 23:16 03:07 07:00 Temp 98.0 98.0 98.0 98.0 98.0 98.0 Pulse 95 98 72 Resp 18 20 18 22 B/P (MAP) 140/78 (98) 142/75 (97) 146/76 (99) Pulse Ox 90 90 91 92 O2 Delivery Nasal Cannula Room Air Nasal Cannula Nasal Cannula O2 Flow Rate 2.0 2.0 2.0 10/19/20 10/19/20 10/19/20 10/19/20 08:00 08:49 08:49 11:07 Temp 97.6 97.6 Pulse 72 72 63 Resp 22 B/P (MAP) 146/76 146/76 121/69 (86) Pulse Ox 95 O2 Delivery Nasal Cannula Nasal Cannula O2 Flow Rate 2.0 2.0 Intake and Output 10/18/20 10/18/20 10/19/20 15:00 23:00 07:00 Intake Total 360 ml 1000 ml 0 ml Output Total 300 ml 650 ml 150 ml Balance 60 ml 350 ml -150 ml JAIMIE GILMAN MD Oct 19, 2020 14:39
[2020-10-19] MEDS: HYDROcodone/APAP 7.5/325MG 1 TAB TABLET PO PRN ×2 (16:33→21:39)
[2020-10-19] MEDS: BUMETANIDE 1 MG/4 ML VIAL. IV SCH (16:34)
[2020-10-19 19:12] VITALS: BP 124/58
[2020-10-19] MEDS: ATORVASTATIN CALCIUM 40 MG TABLET. PO SCH (21:38)
[2020-10-19] MEDS: DULoxetine HCL 30 MG CAPSULE.DR PO SCH (21:38)
[2020-10-19 22:49] VITALS: BP 153/77
[2020-10-20 03:01] VITALS: BP 118/56
[2020-10-20] MEDS: HYDROcodone/APAP 7.5/325MG 1 TAB TABLET PO PRN ×4 (05:55→21:12)
[2020-10-20 07:00] VITALS: BP 148/76
[2020-10-20] MEDS: INSULIN LISPRO 300 UNITS/3 ML VIAL. SQ SCH ×3 (07:30→16:53)
--- NOTE | 2020-10-20 07:46 | PDOC ---
[facility] PROGRESS NOTE Date of Service DOS: DATE: 10/20/20 TIME: 07:41 Chief Complaint Chief Complaint A/P: Acute on chronic systolic and diastolic heart failure Accelerated hypertension, secondary to noncompliance. Better controlled after resuming home antihypertensives. PAFIB - telemetry with atrial fibrillation/flutter. On amio, metoprolol, and Eliquis for stroke prophylaxis. CAD - s/p PCI/stents to LCx/LAD. Negative recent MPI SSS, tachy-rhina; s/p PPM ([employer]): Recent device interrogation showed normal function. Diabetes, type II - sliding scale insulin Hyperlipidemia - cont statin Chronic lymphedema Positive blood cultures, probably contaminant per ID. Continue diuresis Cardiac monitoring Serial enzymes COVID-19 pending DVT prophylaxis: Rebeccaqusharyn Full code Long-term prognosis is guarded History of Present Illness History of Present Illness Mr Harris is a 70-year-old male w/ PMHx paroxsymal afib, chronic diastolic CHF, HTN who presented to the ER with shortness of breath that had been occurring for 2 days prior to presentation, rated at 7/10, worse with movement, better with sitting, still increased his home meds, but that did not work. He is on home oxygen as well. Elevated BNP of 575. Chest x-ray is showing some vascular congestion. Admitted with consult to Cardiology. 10/19: Afebrile. Continue diuresis with IV Bumex; monitor I's&O's, daily weights. Discussed fluid restriction with patient. Gram-positive cocci in clusters noted in 1 of 4 bottles, suspect probable contaminant. WBC improving from yesterday. Consultation placed to ID. Afebrile. Blood cultures appear to be contaminant. Still short of breath on minimal exertion to the bathroom requiring O2. He notes he is noncompliant with his O2 or medications or diet at home. He is amenable to a home nurse. Vitals/I&O Vitals/I&O: Vital Signs Date Time Temp Pulse Resp B/P (MAP) Pulse Ox O2 Delivery O2 Flow Rate FiO2 10/20/20 05:55 20 96 Nasal Cannula 2.0 10/20/20 03:01 96.9 60 118/56 (76) 96.9 I & O 10/19/20 10/19/20 10/20/20 15:00 23:00 07:00 Intake Total 600 ml 560 ml 0 ml Output Total 400 ml 900 ml Balance 200 ml -340 ml 0 ml Physical Exam General: Alert, No acute distress Heart: Regular rate Lungs: Crackles (Faint crackles, decreased breath sounds) Abdomen: Soft Extremities: No clubbing, No cyanosis, Other (+3 bilateral lower extremity edema) Skin: No rashes, No breakdown Labs Labs: Laboratory Tests Test 10/19/20 08:00 10/19/20 08:03 10/19/20 11:36 10/19/20 16:33 White Blood Count 11.1 x10^3/uL (4.0-11.0) Red Blood Count 3.89 x10^6/uL (4.30-5.70) Hemoglobin 10.8 g/dL (13.0-17.5) Hematocrit 33.4 % (39.0-53.0) Mean Corpuscular Volume 86 fL (79-100) Mean Corpuscular Hemoglobin 28 pg (25-35) Mean Corpuscular Hemoglobin Concent 33 g/dL (31-37) Red Cell Distribution Width 14.8 % (11.5-14.5) Platelet Count 711 x10^3/uL (140-400) Neutrophils (%) (Auto) 74 % (31-73) Lymphocytes (%) (Auto) 13 % (24-48) Monocytes (%) (Auto) 9 % (0-9) Eosinophils (%) (Auto) 3 % (0-3) Basophils (%) (Auto) 1 % (0-3) Neutrophils # (Auto) 8.2 x10^3/uL (1.8-7.7) Lymphocytes # (Auto) 1.5 x10^3/uL (1.0-4.8) Monocytes # (Auto) 1.0 x10^3/uL (0.0-1.1) Eosinophils # (Auto) 0.3 x10^3/uL (0.0-0.7) Basophils # (Auto) 0.1 x10^3/uL (0.0-0.2) Sodium Level 142 mmol/L (136-145) Potassium Level 5.0 mmol/L (3.5-5.1) Chloride Level 102 mmol/L (98-107) Carbon Dioxide Level 31 mmol/L (21-32) Anion Gap 9 (6-14) Blood Urea Nitrogen 30 mg/dL (8-26) Creatinine 1.2 mg/dL (0.7-1.3) Estimated GFR (Cockcroft-Gault) 60.2 Glucose Level 113 mg/dL (70-99) Calcium Level 9.8 mg/dL (8.5-10.1) Glucose (Fingerstick) 110 mg/dL (70-99) 110 mg/dL (70-99) 107 mg/dL (70-99) Test 10/19/20 20:50 Glucose (Fingerstick) 121 mg/dL (70-99) Assessment and Plan Assessmemt and Plan Problems Medical Problems: (1) Acute on chronic diastolic (congestive) heart failure Status: Acute (2) Person under investigation for COVID-19 Status: Acute (3) Pneumonia Status: Acute Comment Review of Relevant I have reviewed the following items ashwini (where applicable) has been applied. Medications: Current Medications Medications (Trade) Dose Ordered Sig/Lito Route PRN Reason Start Time Stop Time Status Last Admin Dose Admin Bumetanide (Bumex) 1 mg [id number] IV 10/19/20 15:00 10/19/20 16:34 Justifications for Admission Other Justification JOSSELIN ARCOS MD Oct 20, 2020 07:45
--- NOTE | 2020-10-20 07:51 | PDOC ---
Infectious Disease Note Subjective Subjective pt is sitting in chair, says feeling better ROS ROS no n/v/d/fever Vital Sign Vital Signs Vital Signs Date Time Temp Pulse Resp B/P (MAP) Pulse Ox O2 Delivery O2 Flow Rate FiO2 10/20/20 05:55 20 96 Nasal Cannula 2.0 10/20/20 03:01 96.9 60 118/56 (76) 96.9 Physical Exam PHYSICAL EXAM GENERAL: Alert and oriented gentleman, not in distress. VITAL SIGNS: stable The patient is not in distress. HEENT: Both pupils are round and reacting. No conjunctival lesion, no lesion in the mouth. NECK: Supple, no JVP, no lymphadenopathy. LUNGS: Clear. HEART: S1, S2 regular. ABDOMEN: Soft, nontender. EXTREMITIES: Bilateral pitting edema present. Also, bilateral venous insufficiency changes present. NEUROLOGIC: The patient is alert, awake and appropriate. No focal neurologic deficit. Labs Lab Laboratory Tests Test 10/19/20 08:00 10/19/20 08:03 10/19/20 11:36 10/19/20 16:33 White Blood Count 11.1 x10^3/uL (4.0-11.0) Red Blood Count 3.89 x10^6/uL (4.30-5.70) Hemoglobin 10.8 g/dL (13.0-17.5) Hematocrit 33.4 % (39.0-53.0) Mean Corpuscular Volume 86 fL (79-100) Mean Corpuscular Hemoglobin 28 pg (25-35) Mean Corpuscular Hemoglobin Concent 33 g/dL (31-37) Red Cell Distribution Width 14.8 % (11.5-14.5) Platelet Count 711 x10^3/uL (140-400) Neutrophils (%) (Auto) 74 % (31-73) Lymphocytes (%) (Auto) 13 % (24-48) Monocytes (%) (Auto) 9 % (0-9) Eosinophils (%) (Auto) 3 % (0-3) Basophils (%) (Auto) 1 % (0-3) Neutrophils # (Auto) 8.2 x10^3/uL (1.8-7.7) Lymphocytes # (Auto) 1.5 x10^3/uL (1.0-4.8) Monocytes # (Auto) 1.0 x10^3/uL (0.0-1.1) Eosinophils # (Auto) 0.3 x10^3/uL (0.0-0.7) Basophils # (Auto) 0.1 x10^3/uL (0.0-0.2) Sodium Level 142 mmol/L (136-145) Potassium Level 5.0 mmol/L (3.5-5.1) Chloride Level 102 mmol/L (98-107) Carbon Dioxide Level 31 mmol/L (21-32) Anion Gap 9 (6-14) Blood Urea Nitrogen 30 mg/dL (8-26) Creatinine 1.2 mg/dL (0.7-1.3) Estimated GFR (Cockcroft-Gault) 60.2 Glucose Level 113 mg/dL (70-99) Calcium Level 9.8 mg/dL (8.5-10.1) Glucose (Fingerstick) 110 mg/dL (70-99) 110 mg/dL (70-99) 107 mg/dL (70-99) Test 10/19/20 20:50 Glucose (Fingerstick) 121 mg/dL (70-99) Micro Microbiology 10/17/20 Blood Culture - Preliminary, Resulted NO GROWTH AFTER 1 DAY Objective Assessment IMPRESSION: 1. Blood culture positive 09/21 gram-positive cocci, most likely to be contaminant. We will follow to make sure the species identification is in favor of contaminant. 2. Congestive heart failure. 3. Obesity. 4. Coronary artery disease. 5. Diabetes. 6. Hypertension. 7. Noncompliance. Plan Plan of Care cont off antibiotics leg elevation, pt cannot do says JAMEY SAMUELS MD Oct 20, 2020 07:51
[2020-10-20 08:47] LABS: BASO # 0.1 x10^3/uL (0.0-0.2); BASO % 1 % (0-3); EOS # 0.4 x10^3/uL (0.0-0.7); EOS % 4 % (0-3); HEMATOCRIT 35.3 % (39.0-53.0); HEMOGLOBIN 11.3 g/dL (13.0-17.5); LYMPH # 1.5 x10^3/uL (1.0-4.8); LYMPH % 14 % (24-48); MEAN CORPUSCULAR HEMOGLOBIN 28 pg (25-35); MEAN CORPUSCULAR HGB CONC 32 g/dL (31-37); MEAN CORPUSCULAR VOLUME 85 fL (79-100); MONO % 10 % (0-9); NEUT # 7.7 x10^3/uL (1.8-7.7); NEUT % 72 % (31-73); PLATELET COUNT 775 x10^3/uL (140-400); RED BLOOD COUNT 4.13 x10^6/uL (4.30-5.70); RED CELL DISTRIBUTION WIDTH 14.8 % (11.5-14.5); WHITE BLOOD COUNT 10.7 x10^3/uL (4.0-11.0)
[2020-10-20] MEDS: POTASSIUM CHLORIDE 20 MEQ TABLET.ER. PO SCH (09:00)
[2020-10-20 09:10] LABS: CALCIUM 9.8 mg/dL (8.5-10.1); GFR 74.3; POTASSIUM 4.8 mmol/L (3.5-5.1)
[2020-10-20] MEDS: ANTI-COAG MONITOR BY PHARMACY. MC PRN (09:26)
[2020-10-20] MEDS: FAMOTIDINE 20 MG TABLET. PO SCH ×2 (10:26→21:11)
[2020-10-20] MEDS: APIXABAN 5 MG TABLET. PO SCH ×2 (10:26→21:11)
[2020-10-20] MEDS: METOPROLOL TART IMMED RELEASE 25 MG TABLET. PO SCH ×2 (10:26→21:11)
[2020-10-20] MEDS: ASPIRIN ENTERIC COATED 81 MG TABLET.DR. PO SCH (10:26)
[2020-10-20] MEDS: GABAPENTIN 300 MG CAPSULE. PO SCH ×3 (10:26→21:11)
[2020-10-20] MEDS: FENOFIBRATE,MICRONIZED 134 MG CAPSULE PO SCH (10:27)
[2020-10-20] MEDS: metFORMIN 500 MG TABLET PO SCH ×2 (10:27→16:49)
[2020-10-20] MEDS: BUMETANIDE 1 MG/4 ML VIAL. IV SCH ×2 (10:28→14:13)
[2020-10-20 11:06] VITALS: BP 147/70
[2020-10-20] MEDS ORDERED: DEXTROSE 50% 25 GM / 50ML DISP.SYRIN. IV PRN (12:00)
[2020-10-20] MEDS: AMIODARONE HCL 200 MG TABLET. PO SCH (12:24)
--- NOTE | 2020-10-20 14:29 | PDOC ---
FABI ADAMSON [employer] AP[employer]ER 10/20/20 1429: CARDIO Progress Notes Date and Time Date of Service 10/20/2020 Time of Evaluation 1240 Subjective Subjective: No Chest Pain, No shortness of breath, No Palpitations Vitals Vitals Vital Signs Date Time Temp Pulse Resp B/P (MAP) Pulse Ox O2 Delivery O2 Flow Rate FiO2 10/20/20 13:19 95 Nasal Cannula 2.0 10/20/20 12:24 65 147/70 10/20/20 12:19 18 10/20/20 11:06 98.1 98.1 Weight Weight [ ] Input and Output Intake and Output Intake and Output 10/20/20 07:00 Intake Total 1160 ml Output Total 1300 ml Balance -140 ml Intake Oral 1160 ml Output Urine Total 1300 ml Laboratory Labs Laboratory Tests Test 10/19/20 16:33 10/19/20 20:50 10/20/20 07:50 10/20/20 07:54 Glucose (Fingerstick) 107 mg/dL (70-99) 121 mg/dL (70-99) 83 mg/dL (70-99) White Blood Count 10.7 x10^3/uL (4.0-11.0) Red Blood Count 4.13 x10^6/uL (4.30-5.70) Hemoglobin 11.3 g/dL (13.0-17.5) Hematocrit 35.3 % (39.0-53.0) Mean Corpuscular Volume 85 fL (79-100) Mean Corpuscular Hemoglobin 28 pg (25-35) Mean Corpuscular Hemoglobin Concent 32 g/dL (31-37) Red Cell Distribution Width 14.8 % (11.5-14.5) Platelet Count 775 x10^3/uL (140-400) Neutrophils (%) (Auto) 72 % (31-73) Lymphocytes (%) (Auto) 14 % (24-48) Monocytes (%) (Auto) 10 % (0-9) Eosinophils (%) (Auto) 4 % (0-3) Basophils (%) (Auto) 1 % (0-3) Neutrophils # (Auto) 7.7 x10^3/uL (1.8-7.7) Lymphocytes # (Auto) 1.5 x10^3/uL (1.0-4.8) Monocytes # (Auto) 1.0 x10^3/uL (0.0-1.1) Eosinophils # (Auto) 0.4 x10^3/uL (0.0-0.7) Basophils # (Auto) 0.1 x10^3/uL (0.0-0.2) Sodium Level 140 mmol/L (136-145) Potassium Level 4.8 mmol/L (3.5-5.1) Chloride Level 100 mmol/L (98-107) Carbon Dioxide Level 33 mmol/L (21-32) Anion Gap 7 (6-14) Blood Urea Nitrogen 29 mg/dL (8-26) Creatinine 1.0 mg/dL (0.7-1.3) Estimated GFR (Cockcroft-Gault) 74.3 Glucose Level 95 mg/dL (70-99) Calcium Level 9.8 mg/dL (8.5-10.1) Test 10/20/20 11:27 Glucose (Fingerstick) 124 mg/dL (70-99) Microbiology Micro Microbiology 10/17/20 Blood Culture - Final, Complete Physical Exam HEENT: Neck Supple W Full Motion Chest: Symmetric LUNGS: Clear to Auscultation Heart: RRR (SR) Abdomen: Other (obese) Extremities: Other (Chronic lymphedema) Neurology: alert, oriented, follow commands Assessment Assessment 1. Mild acute on chronic diastolic heart failure probably secondary to treatment noncompliance 2. Accelerated hypertension: better after resumption of BP meds 3. PAFIB: presently SR. Bursts of AFIB due to being off amiodarone 4. CAD s/p PCI/stents to LCx/LAD. Recent MPI did not show any significant ischemia 5. SSS, tachy-rhina; s/p PPM (Medtr[employer]): Recent device interrogation showed normal function. 6. DM2: BG controlled 7. Hyperlipidemia 8. Chronic lymphedema 9. Positive blood cultures, probably contaminant per ID. 10. Severe noncompliance: diet and meds, has been off some meds. Recommendations 1. Transition to PO bumex PO 1 mg bid prior to DC. Discussed diet modification. I saw a sausage egg biscuit from [employer] on his table. Dietitian consult. 2. Continue amiodarone for rhythm maintenance. Becky steel stroke prevention 3. Continue secondary prevention measures 4. Lymphedema consult and elevated legs. Goal wt 138 KG. 5. Discussed treatment complaince Justicifation of Admission Dx: Justifications for Admission: Justification of Admission Dx: Yes CHF: Hemodynamic Instability Comminuty Aquired Pneumonia: Hypoxemia JAIMIE GILMAN MD 10/20/20 1434: CARDIO Progress Notes Assessment Assessment Patient seen and examined. Agree with SPIKE MAKER's assessment and plan. Mild acute on chronic diastolic heart failure better compensated Blood pressure better controlled since admission. PAF, presently sinus rhythm. Continue amiodarone. CAD status clinically stable. SSS s/p PPM with recent interrogation showing normal function. Agree with changing Bumex to p.o. FABI ADAMSON APRN Oct 20, 2020 14:29 JAIMIE GILMAN MD Oct 20, 2020 14:34
[2020-10-20 15:06] VITALS: BP 124/56
[2020-10-20 19:50] VITALS: BP 140/69
[2020-10-20] MEDS: DULoxetine HCL 30 MG CAPSULE.DR PO SCH (21:11)
[2020-10-20] MEDS: ATORVASTATIN CALCIUM 40 MG TABLET. PO SCH (21:11)
[2020-10-20] MEDS: PSYLLIUM HUSK (SUGAR FREE) 1 PKT PACKET PO SCH (21:11)
[2020-10-20 23:25] VITALS: BP 135/63
[2020-10-21] VITALS (7 sets, daily range): BP systolic 127–157; BP diastolic 65–84
[2020-10-21] MEDS: HYDROcodone/APAP 7.5/325MG 1 TAB TABLET PO PRN ×4 (03:30→21:45)
--- NOTE | 2020-10-21 03:49 | EKG ---
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
[2020-10-21 06:13] LABS: CALCIUM 9.4 mg/dL (8.5-10.1); CREATININE 1.2 mg/dL (0.7-1.3); GFR 60.2
[2020-10-21 06:32] LABS: BASO # 0.1 x10^3/uL (0.0-0.2); BASO % 1 % (0-3); EOS # 0.3 x10^3/uL (0.0-0.7); EOS % 3 % (0-3); HEMATOCRIT 36.3 % (39.0-53.0); HEMOGLOBIN 11.8 g/dL (13.0-17.5); LYMPH # 1.5 x10^3/uL (1.0-4.8); LYMPH % 16 % (24-48); MEAN CORPUSCULAR HEMOGLOBIN 28 pg (25-35); MEAN CORPUSCULAR HGB CONC 33 g/dL (31-37); MEAN CORPUSCULAR VOLUME 86 fL (79-100); MONO % 10 % (0-9); NEUT # 6.7 x10^3/uL (1.8-7.7); NEUT % 70 % (31-73); PLATELET COUNT 722 x10^3/uL (140-400); RED BLOOD COUNT 4.23 x10^6/uL (4.30-5.70); RED CELL DISTRIBUTION WIDTH 14.9 % (11.5-14.5); WHITE BLOOD COUNT 9.5 x10^3/uL (4.0-11.0)
[2020-10-21] MEDS: INSULIN LISPRO 300 UNITS/3 ML VIAL. SQ SCH ×3 (08:00→17:00)
--- NOTE | 2020-10-21 08:31 | PDOC ---
[employer] PROGRESS NOTE Date of Service DOS: DATE: 10/21/20 TIME: 08:29 Chief Complaint Chief Complaint A/P: Acute on chronic systolic and diastolic heart failure Accelerated hypertension, secondary to noncompliance. Better controlled after resuming home antihypertensives. PAFIB - telemetry with atrial fibrillation/flutter. On amio, metoprolol, and Eliquis for stroke prophylaxis. CAD - s/p PCI/stents to LCx/LAD. Negative recent MPI SSS, tachy-rhina; s/p PPM ([employer]): Recent device interrogation showed normal function. Diabetes, type II - sliding scale insulin Hyperlipidemia - cont statin Chronic lymphedema Positive blood cultures, probably contaminant per ID Severe malnutrition Plan: Continue diuresis Cardiac monitoring Serial enzymes COVID-19 negative DVT prophylaxis: Eliquis Full code Long-term prognosis is guarded History of Present Illness History of Present Illness Mr Harris is a 70-year-old male w/ PMHx paroxsymal afib, chronic diastolic CHF, HTN who presented to the ER with shortness of breath that had been occurring for 2 days prior to presentation, rated at 7/10, worse with movement, better with sitting, still increased his home meds, but that did not work. He is on home oxygen as well. Elevated BNP of 575. Chest x-ray is showing some vascular congestion. Admitted with consult to Cardiology. 2: Afebrile. Continue diuresis with IV Bumex; monitor I's&O's, daily weights. Discussed fluid restriction with patient. Gram-positive cocci in clusters noted in 1 of 4 bottles, suspect probable contaminant. WBC improving from yesterday. Consultation placed to ID. 2: Afebrile. Blood cultures appear to be contaminant. Still short of breath on minimal exertion to the bathroom requiring O2. He notes he is noncompliant with his O2 or medications or diet at home. He is amenable to a home nurse. 10/21: Patient seen and evaluated. Afebrile, but reports shortness of breath with exertion. Currently breathing on room air. Had 400 mL fluid off yesterday, and about 1 kg weight loss with diuresis. Some gas station food noted in patient's room. Discussed importance of low-sodium cardiac diet, and patient conveyed understanding. Continue diuresis with Bumex 1 milligram twice daily. COVID-19 negative. Vitals/I&O Vitals/I&O: Vital Signs Date Time Temp Pulse Resp B/P (MAP) Pulse Ox O2 Delivery O2 Flow Rate FiO2 10/21/20 04:30 20 95 Nasal Cannula 2.0 10/21/20 03:15 97.7 59 157/84 (108) 97.7 I & O 10/20/20 10/20/20 10/21/20 15:00 23:00 07:00 Intake Total 720 ml 480 ml 200 ml Output Total 400 ml 950 ml 450 ml Balance 320 ml -470 ml -250 ml Physical Exam Physical Exam: General: Alert, No acute distress Heart: Regular rate Lungs: Crackles (Faint crackles, decreased breath sounds) Abdomen: Soft Extremities: No clubbing, No cyanosis, Other (+3 bilateral lower extremity edema) Skin: No rashes, No breakdown Labs Labs: Laboratory Tests Test 10/20/20 11:27 10/20/20 16:36 10/20/20 21:15 10/21/20 05:22 Glucose (Fingerstick) 124 mg/dL (70-99) 107 mg/dL (70-99) 109 mg/dL (70-99) White Blood Count 9.5 x10^3/uL (4.0-11.0) Red Blood Count 4.23 x10^6/uL (4.30-5.70) Hemoglobin 11.8 g/dL (13.0-17.5) Hematocrit 36.3 % (39.0-53.0) Mean Corpuscular Volume 86 fL (79-100) Mean Corpuscular Hemoglobin 28 pg (25-35) Mean Corpuscular Hemoglobin Concent 33 g/dL (31-37) Red Cell Distribution Width 14.9 % (11.5-14.5) Platelet Count 722 x10^3/uL (140-400) Neutrophils (%) (Auto) 70 % (31-73) Lymphocytes (%) (Auto) 16 % (24-48) Monocytes (%) (Auto) 10 % (0-9) Eosinophils (%) (Auto) 3 % (0-3) Basophils (%) (Auto) 1 % (0-3) Neutrophils # (Auto) 6.7 x10^3/uL (1.8-7.7) Lymphocytes # (Auto) 1.5 x10^3/uL (1.0-4.8) Monocytes # (Auto) 1.0 x10^3/uL (0.0-1.1) Eosinophils # (Auto) 0.3 x10^3/uL (0.0-0.7) Basophils # (Auto) 0.1 x10^3/uL (0.0-0.2) Sodium Level 140 mmol/L (136-145) Potassium Level 4.0 mmol/L (3.5-5.1) Chloride Level 101 mmol/L (98-107) Carbon Dioxide Level 34 mmol/L (21-32) Anion Gap 5 (6-14) Blood Urea Nitrogen 27 mg/dL (8-26) Creatinine 1.2 mg/dL (0.7-1.3) Estimated GFR (Cockcroft-Gault) 60.2 Glucose Level 88 mg/dL (70-99) Calcium Level 9.4 mg/dL (8.5-10.1) Assessment and Plan Assessmemt and Plan Problems Medical Problems: (1) Acute on chronic diastolic (congestive) heart failure Status: Acute (2) Person under investigation for COVID-19 Status: Acute (3) Pneumonia Status: Acute Comment Review of Relevant I have reviewed the following items ashwini (where applicable) has been applied. Medications: Current Medications Medications (Trade) Dose Ordered Sig/Lito Route PRN Reason Start Time Stop Time Status Last Admin Dose Admin Psyllium Hydrophilic Mucilloid (Metamucil Fiber Packet) 1 pkt QHS PO 10/20/20 21:00 10/20/20 21:11 Justifications for Admission Other Justification NAOMI PETERSON MD Oct 21, 2020 08:31
[2020-10-21] MEDS: metFORMIN 500 MG TABLET PO SCH ×2 (08:36→17:36)
[2020-10-21] MEDS: APIXABAN 5 MG TABLET. PO SCH ×2 (08:37→21:35)
[2020-10-21] MEDS: GABAPENTIN 300 MG CAPSULE. PO SCH ×3 (08:37→21:34)
[2020-10-21] MEDS: ASPIRIN ENTERIC COATED 81 MG TABLET.DR. PO SCH (08:37)
[2020-10-21] MEDS: POTASSIUM CHLORIDE 20 MEQ TABLET.ER. PO SCH (08:37)
[2020-10-21] MEDS: METOPROLOL TART IMMED RELEASE 25 MG TABLET. PO SCH ×2 (08:38→21:35)
[2020-10-21] MEDS: BUMETANIDE 1 MG/4 ML VIAL. IV SCH ×2 (08:38→14:09)
[2020-10-21] MEDS: AMIODARONE HCL 200 MG TABLET. PO SCH (08:38)
[2020-10-21] MEDS: FENOFIBRATE,MICRONIZED 134 MG CAPSULE PO SCH (08:38)
[2020-10-21] MEDS: FAMOTIDINE 20 MG TABLET. PO SCH ×2 (08:38→21:34)
--- NOTE | 2020-10-21 14:30 | PDOC ---
FABI ADAMSON DIGITAL ACCOUNT MANAGER 10/21/20 1430: CARDIO Progress Notes Date and Time Date of Service 10/21/2020 Time of Evaluation 1015 Subjective Subjective: No Chest Pain, No shortness of breath, No Palpitations Vitals Vitals Vital Signs Date Time Temp Pulse Resp B/P (MAP) Pulse Ox O2 Delivery O2 Flow Rate FiO2 10/21/20 11:00 97.3 59 20 129/65 (86) 93 Room Air 97.3 10/21/20 07:00 2.0 Weight Weight [ ] Input and Output Intake and Output Intake and Output 10/21/20 07:00 Intake Total 1400 ml Output Total 1800 ml Balance -400 ml Intake Oral 1400 ml Output Urine Total 1800 ml Laboratory Labs Laboratory Tests Test 10/20/20 16:36 10/20/20 21:15 10/21/20 05:22 10/21/20 09:02 Glucose (Fingerstick) 107 mg/dL (70-99) 109 mg/dL (70-99) 77 mg/dL (70-99) White Blood Count 9.5 x10^3/uL (4.0-11.0) Red Blood Count 4.23 x10^6/uL (4.30-5.70) Hemoglobin 11.8 g/dL (13.0-17.5) Hematocrit 36.3 % (39.0-53.0) Mean Corpuscular Volume 86 fL (79-100) Mean Corpuscular Hemoglobin 28 pg (25-35) Mean Corpuscular Hemoglobin Concent 33 g/dL (31-37) Red Cell Distribution Width 14.9 % (11.5-14.5) Platelet Count 722 x10^3/uL (140-400) Neutrophils (%) (Auto) 70 % (31-73) Lymphocytes (%) (Auto) 16 % (24-48) Monocytes (%) (Auto) 10 % (0-9) Eosinophils (%) (Auto) 3 % (0-3) Basophils (%) (Auto) 1 % (0-3) Neutrophils # (Auto) 6.7 x10^3/uL (1.8-7.7) Lymphocytes # (Auto) 1.5 x10^3/uL (1.0-4.8) Monocytes # (Auto) 1.0 x10^3/uL (0.0-1.1) Eosinophils # (Auto) 0.3 x10^3/uL (0.0-0.7) Basophils # (Auto) 0.1 x10^3/uL (0.0-0.2) Sodium Level 140 mmol/L (136-145) Potassium Level 4.0 mmol/L (3.5-5.1) Chloride Level 101 mmol/L (98-107) Carbon Dioxide Level 34 mmol/L (21-32) Anion Gap 5 (6-14) Blood Urea Nitrogen 27 mg/dL (8-26) Creatinine 1.2 mg/dL (0.7-1.3) Estimated GFR (Cockcroft-Gault) 60.2 Glucose Level 88 mg/dL (70-99) Calcium Level 9.4 mg/dL (8.5-10.1) Test 10/21/20 12:04 Glucose (Fingerstick) 109 mg/dL (70-99) Microbiology Micro Microbiology 10/17/20 Blood Culture - Final, Complete Physical Exam HEENT: Neck Supple W Full Motion Chest: Symmetric LUNGS: Clear to Auscultation Heart: RRR (SR) Abdomen: Other (obese) Extremities: Other (Chronic lymphedema) Neurology: alert, oriented, follow commands Assessment Assessment 1. Mild acute on chronic diastolic heart failure probably secondary to treatment noncompliance. Improving 2. Accelerated hypertension: controlled after resumption of BP meds 3. PAFIB: Maintaining SR. Bursts of AFIB due to being off amiodarone 4. CAD s/p PCI/stents to LCx/LAD. Recent MPI did not show any significant is chemia, Clinically stable 5. SSS, tachy-rhina; s/p PPM ([employer]): Recent device interrogation showed normal function. 6. DM2: BG controlled 7. Hyperlipidemia 8. Chronic lymphedema 9. Positive blood cultures, probably contaminant per ID. 10. Severe noncompliance: diet and meds, has been off some meds. Recommendations 1. Transition to PO bumex PO 1 mg bid prior to DC. Discussed diet modification. Dietitian consult. 2. Continue amiodarone for rhythm maintenance. Eliquis fo stroke prevention 3. Continue secondary prevention measures 4. Lymphedema specialist following and elevated legs. Goal wt 138 KG. 5. Discussed treatment compliance, Anticipate DC tomorrow. Follow up with Dr. Gilman as scheduled Justicifation of Admission Dx: Justifications for Admission: Justification of Admission Dx: Yes CHF: Hemodynamic Instability Comminuty Aquired Pneumonia: Hypoxemia JAIMIE GILMAN MD 10/21/20 1606: CARDIO Progress Notes Assessment Assessment Patient seen and examined. Agree with HUMAN RESOURCES COORDINATOR's assessment and plan. Mild acute on chronic diastolic heart failure better compensated Blood pressure better controlled since admission. PAF, presently sinus rhythm. Continue amiodarone for rhythm maintenance and Eliquis for stroke prophylaxis. CAD status clinically stable. SSS s/p PPM with recent interrogation showing normal function. Agree with changing Bumex to p.o. Importance of compliance with medications reemphasized FABI ADAMSON APRN Oct 21, 2020 14:30 JAIMIE GILMAN MD Oct 21, 2020 16:06
[2020-10-21] MEDS: PSYLLIUM HUSK (SUGAR FREE) 1 PKT PACKET PO SCH (21:00)
[2020-10-21] MEDS: DULoxetine HCL 30 MG CAPSULE.DR PO SCH (21:35)
[2020-10-21] MEDS: ATORVASTATIN CALCIUM 40 MG TABLET. PO SCH (21:36)
[2020-10-22 03:10] VITALS: BP 146/76
[2020-10-22] MEDS: HYDROcodone/APAP 7.5/325MG 1 TAB TABLET PO PRN ×2 (04:04→10:03)
[2020-10-22 07:00] VITALS: BP 131/75
[2020-10-22] MEDS: INSULIN LISPRO 300 UNITS/3 ML VIAL. SQ SCH ×2 (07:34→12:00)
[2020-10-22 08:11] LABS: BASO # 0.1 x10^3/uL (0.0-0.2); BASO % 1 % (0-3); EOS # 0.3 x10^3/uL (0.0-0.7); EOS % 3 % (0-3); HEMATOCRIT 36.3 % (39.0-53.0); HEMOGLOBIN 11.6 g/dL (13.0-17.5); LYMPH # 1.7 x10^3/uL (1.0-4.8); LYMPH % 15 % (24-48); MEAN CORPUSCULAR HEMOGLOBIN 27 pg (25-35); MEAN CORPUSCULAR HGB CONC 32 g/dL (31-37); MEAN CORPUSCULAR VOLUME 85 fL (79-100); MONO # 1.1 x10^3/uL (0.0-1.1); MONO % 10 % (0-9); NEUT # 8.3 x10^3/uL (1.8-7.7); NEUT % 72 % (31-73); PLATELET COUNT 753 x10^3/uL (140-400); RED BLOOD COUNT 4.29 x10^6/uL (4.30-5.70); RED CELL DISTRIBUTION WIDTH 14.8 % (11.5-14.5); WHITE BLOOD COUNT 11.5 x10^3/uL (4.0-11.0)
[2020-10-22] MEDS: APIXABAN 5 MG TABLET. PO SCH (08:19)
[2020-10-22] MEDS: FENOFIBRATE,MICRONIZED 134 MG CAPSULE PO SCH (08:19)
[2020-10-22] MEDS: metFORMIN 500 MG TABLET PO SCH (08:20)
[2020-10-22] MEDS: GABAPENTIN 300 MG CAPSULE. PO SCH ×2 (08:20→14:21)
[2020-10-22] MEDS: FAMOTIDINE 20 MG TABLET. PO SCH (08:20)
[2020-10-22] MEDS: ASPIRIN ENTERIC COATED 81 MG TABLET.DR. PO SCH (08:20)
[2020-10-22] MEDS: AMIODARONE HCL 200 MG TABLET. PO SCH (08:20)
[2020-10-22] MEDS: POTASSIUM CHLORIDE 20 MEQ TABLET.ER. PO SCH (08:20)
[2020-10-22] MEDS: BUMETANIDE 1 MG/4 ML VIAL. IV SCH ×2 (08:21→14:20)
[2020-10-22] MEDS: METOPROLOL TART IMMED RELEASE 25 MG TABLET. PO SCH (08:21)
[2020-10-22 08:41] LABS: CALCIUM 9.6 mg/dL (8.5-10.1); CREATININE 0.9 mg/dL (0.7-1.3); GFR 83.9; POTASSIUM 4.3 mmol/L (3.5-5.1)
--- NOTE | 2020-10-22 10:10 | PDOC ---
[facility] PROGRESS NOTE Date of Service DOS: DATE: 10/22/20 TIME: 10:07 Chief Complaint Chief Complaint A/P: Acute on chronic systolic and diastolic heart failure Accelerated hypertension, secondary to noncompliance. Better controlled after resuming home antihypertensives. PAFIB - telemetry with atrial fibrillation/flutter. On amio, metoprolol, and Eliquis for stroke prophylaxis. CAD - s/p PCI/stents to LCx/LAD. Negative recent MPI SSS, tachy-rhina; s/p PPM ([employer]): Recent device interrogation showed normal function. Diabetes, type II - sliding scale insulin Hyperlipidemia - cont statin Chronic lymphedema Positive blood cultures, probably contaminant per ID Severe malnutrition Plan: Continue diuresis Cardiac monitoring Serial enzymes COVID-19 negative DVT prophylaxis: Eliquis Full code Long-term prognosis is guarded History of Present Illness History of Present Illness Mr Harris is a 70-year-old male w/ PMHx paroxsymal afib, chronic diastolic CHF, HTN who presented to the ER with shortness of breath that had been occurring for 2 days prior to presentation, rated at 7/10, worse with movement, better with sitting, still increased his home meds, but that did not work. He is on home oxygen as well. Elevated BNP of 575. Chest x-ray is showing some vascular congestion. Admitted with consult to Cardiology. 2: Afebrile. Continue diuresis with IV Bumex; monitor I's&O's, daily weights. Discussed fluid restriction with patient. Gram-positive cocci in clusters noted in 1 of 4 bottles, suspect probable contaminant. WBC improving from yesterday. Consultation placed to ID. 2: Afebrile. Blood cultures appear to be contaminant. Still short of breath on minimal exertion to the bathroom requiring O2. He notes he is noncompliant with his O2 or medications or diet at home. He is amenable to a home nurse. 2: Patient seen and evaluated. Afebrile, but reports shortness of breath with exertion. Currently breathing on room air. Had 400 mL fluid off yesterday, and about 1 kg weight loss with diuresis. Some gas station food noted in patient's room. Discussed importance of low-sodium cardiac diet, and patient conveyed understanding. Continue diuresis with Bumex 1 milligram twice daily. COVID-19 negative. 24: Patient is afebrile, breathing room air. Continue diuresis with IV Bumex, this may be switched over to p.o. per cardiology. States he has been urinating frequently, 2852 mL off. Some fluctuating weight but in total since admission little over 1 kg fluid removed. Complains of some pain in his feet probably due to swelling. Continue to diurese. Vitals/I&O Vitals/I&O: Vital Signs Date Time Temp Pulse Resp B/P (MAP) Pulse Ox O2 Delivery O2 Flow Rate FiO2 10/22/20 08:21 60 10/22/20 08:00 Nasal Cannula 2.0 10/22/20 07:00 98.0 19 131/75 (93) 95 98.0 I & O 10/21/20 10/21/20 10/22/20 15:00 23:00 07:00 Intake Total 250 ml Output Total 1550 ml 1025 ml 500 ml Balance -1550 ml -775 ml -500 ml Physical Exam Physical Exam: General: Alert, No acute distress Heart: Regular rate Lungs: Crackles (Faint crackles, decreased breath sounds) Abdomen: Soft Extremities: No clubbing, No cyanosis, Other (+3 bilateral lower extremity edema) Skin: No rashes, No breakdown Labs Labs: Laboratory Tests Test 10/21/20 12:04 10/21/20 17:08 10/22/20 07:35 Glucose (Fingerstick) 109 mg/dL (70-99) 101 mg/dL (70-99) 102 mg/dL (70-99) White Blood Count 11.5 x10^3/uL (4.0-11.0) Red Blood Count 4.29 x10^6/uL (4.30-5.70) Hemoglobin 11.6 g/dL (13.0-17.5) Hematocrit 36.3 % (39.0-53.0) Mean Corpuscular Volume 85 fL (79-100) Mean Corpuscular Hemoglobin 27 pg (25-35) Mean Corpuscular Hemoglobin Concent 32 g/dL (31-37) Red Cell Distribution Width 14.8 % (11.5-14.5) Platelet Count 753 x10^3/uL (140-400) Neutrophils (%) (Auto) 72 % (31-73) Lymphocytes (%) (Auto) 15 % (24-48) Monocytes (%) (Auto) 10 % (0-9) Eosinophils (%) (Auto) 3 % (0-3) Basophils (%) (Auto) 1 % (0-3) Neutrophils # (Auto) 8.3 x10^3/uL (1.8-7.7) Lymphocytes # (Auto) 1.7 x10^3/uL (1.0-4.8) Monocytes # (Auto) 1.1 x10^3/uL (0.0-1.1) Eosinophils # (Auto) 0.3 x10^3/uL (0.0-0.7) Basophils # (Auto) 0.1 x10^3/uL (0.0-0.2) Sodium Level 137 mmol/L (136-145) Potassium Level 4.3 mmol/L (3.5-5.1) Chloride Level 100 mmol/L (98-107) Carbon Dioxide Level 30 mmol/L (21-32) Anion Gap 7 (6-14) Blood Urea Nitrogen 21 mg/dL (8-26) Creatinine 0.9 mg/dL (0.7-1.3) Estimated GFR (Cockcroft-Gault) 83.9 Glucose Level 89 mg/dL (70-99) Calcium Level 9.6 mg/dL (8.5-10.1) Assessment and Plan Assessmemt and Plan Problems Medical Problems: (1) Acute on chronic diastolic (congestive) heart failure Status: Acute (2) Person under investigation for COVID-19 Status: Acute (3) Pneumonia Status: Acute Comment Review of Relevant I have reviewed the following items ashwini (where applicable) has been applied. Justifications for Admission Other Justification NAOMI PETERSON MD Oct 22, 2020 10:10
[2020-10-22 11:00] VITALS: BP 138/75
--- NOTE | 2020-10-22 13:23 | PDOC ---
FABI ADAMSON TYPING TEACHER 10/22/20 1323: CARDIO Progress Notes Date and Time Date of Service 10/22/2020 Time of Evaluation 1320 Subjective Subjective: No Chest Pain, No shortness of breath, No Palpitations Vitals Vitals Vital Signs Date Time Temp Pulse Resp B/P (MAP) Pulse Ox O2 Delivery O2 Flow Rate FiO2 10/22/20 11:00 98.0 59 19 138/75 (96) 97 Nasal Cannula 2.0 98.0 Weight Weight [ ] Input and Output Intake and Output Intake and Output 10/22/20 07:00 Intake Total 250 ml Output Total 3075 ml Balance -2825 ml Intake Oral 250 ml Output Urine Total 3075 ml Laboratory Labs Laboratory Tests Test 10/21/20 17:08 10/22/20 07:35 10/22/20 11:35 Glucose (Fingerstick) 101 mg/dL (70-99) 102 mg/dL (70-99) 103 mg/dL (70-99) White Blood Count 11.5 x10^3/uL (4.0-11.0) Red Blood Count 4.29 x10^6/uL (4.30-5.70) Hemoglobin 11.6 g/dL (13.0-17.5) Hematocrit 36.3 % (39.0-53.0) Mean Corpuscular Volume 85 fL (79-100) Mean Corpuscular Hemoglobin 27 pg (25-35) Mean Corpuscular Hemoglobin Concent 32 g/dL (31-37) Red Cell Distribution Width 14.8 % (11.5-14.5) Platelet Count 753 x10^3/uL (140-400) Neutrophils (%) (Auto) 72 % (31-73) Lymphocytes (%) (Auto) 15 % (24-48) Monocytes (%) (Auto) 10 % (0-9) Eosinophils (%) (Auto) 3 % (0-3) Basophils (%) (Auto) 1 % (0-3) Neutrophils # (Auto) 8.3 x10^3/uL (1.8-7.7) Lymphocytes # (Auto) 1.7 x10^3/uL (1.0-4.8) Monocytes # (Auto) 1.1 x10^3/uL (0.0-1.1) Eosinophils # (Auto) 0.3 x10^3/uL (0.0-0.7) Basophils # (Auto) 0.1 x10^3/uL (0.0-0.2) Sodium Level 137 mmol/L (136-145) Potassium Level 4.3 mmol/L (3.5-5.1) Chloride Level 100 mmol/L (98-107) Carbon Dioxide Level 30 mmol/L (21-32) Anion Gap 7 (6-14) Blood Urea Nitrogen 21 mg/dL (8-26) Creatinine 0.9 mg/dL (0.7-1.3) Estimated GFR (Cockcroft-Gault) 83.9 Glucose Level 89 mg/dL (70-99) Calcium Level 9.6 mg/dL (8.5-10.1) Microbiology Micro Microbiology 10/17/20 Blood Culture - Final, Complete Physical Exam HEENT: Neck Supple W Full Motion Chest: Symmetric LUNGS: Clear to Auscultation Heart: RRR (SR) Abdomen: Other (obese) Extremities: Other (Chronic lymphedema) Neurology: alert, oriented, follow commands Assessment Assessment 1. Mild acute on chronic diastolic heart failure probably secondary to treatment noncompliance. compensated 2. Accelerated hypertension: controlled after resumption of BP meds 3. PAFIB: Maintaining SR. Bursts of AFIB due to being off amiodarone 4. CAD s/p PCI/stents to LCx/LAD. Recent MPI did not show any significant ischemia, Clinically stable 5. SSS, tachy-rhina; s/p PPM ([employer]): Recent device interrogation showed normal function. 6. DM2: BG controlled 7. Hyperlipidemia 8. Chronic lymphedema 9. Positive blood cultures, probably contaminant per ID. 10. Severe noncompliance: diet and meds, has been off some meds at home Recommendations 1. Transition to PO bumex PO 1 mg bid. Discussed diet modification. Dietitian consult. 2. Continue amiodarone for rhythm maintenance. Eliquis fo stroke prevention 3. Continue secondary prevention measures 4. Lymphedema specialist following and elevated legs. Goal wt 138 KG. 5. Discussed treatment compliance, anticipate DC this afternoon.Follow up with Dr. Gilman as scheduled Justicifation of Admission Dx: Justifications for Admission: Justification of Admission Dx: Yes CHF: Hemodynamic Instability Comminuty Aquired Pneumonia: Hypoxemia JAIMIE GILMAN MD 10/22/20 5903: CARDIO Progress Notes Assessment Assessment Patient seen and examined. Agree with STAFF CYTOTECHNOLOGIST's assessment and plan. Mild acute on chronic diastolic heart failure well compensated Blood pressure better controlled since admission. PAF, presently sinus rhythm. Continue amiodarone for rhythm maintenance and Eliquis for stroke prophylaxis. CAD status clinically stable. SSS s/p PPM with recent interrogation showing normal function. Continue Bumex PO Importance of compliance with medications reemphasized FABI ADAMSON APRN Oct 22, 2020 13:23 JAIMIE GILMAN MD Oct 22, 2020 18:53
[2020-10-22] MEDS ORDERED: BUME1TAB3 PO (14:47)
--- NOTE | 2020-10-22 14:49 | SNU/HH DC ---
DISCHARGE WITH HOME HEALTH DISCHARGE INFORMATION: Discharge Date: Oct 22, 2020 Final Diagnosis: Problems Medical Problems: (1) Acute on chronic diastolic (congestive) heart failure Status: Acute (2) Person under investigation for COVID-19 Status: Acute (3) Pneumonia Status: Acute Condition on Discharge: Stable CODE STATUS: Code Status: Full HOME HEALTH: Face to Face: I certify this patient is under my care and that I, or a nurse practitioner or physician's assignment desk assistant working with me, had a face to face encounter that meets the physician face to face encounter requirements with this patient on 10/22/2020. Medical Complications: CHF RN For Eval/Treatment: Yes Pt Meets Homebound Status: Poor coordination w/ amb., Extreme weakness w/ amb., Fatigue w/ amb. POST DISCHARGE ORDERS: Activity Instructions for Disc: Activity as tolerated Weight Bearing Status after Di: As tolerated DIET AFTER DISCHARGE: Cardiac Wound/Incision Care: No wound care needed CHECKS AFTER DISCHARGE: Checks after discharge: Check blood press - daily, Check blood sugar, ac/hs TREATMENT/EQUIPMENT ORDERS: Adaptive Equipment Issued: None Discharge Respiratory Equipmen: Oxygen CERTIFICATION STATEMENT: Certification Statement: Certification Statement: Based on the above finding, I certify that this patient is confined to the home and needs intermittent prison care, physical therapy and/or speech therapy, or continues to need occupational therapy.~ This patient is under my care, and I have initiated the establishment of the plan of care.~ This patient will be followed by myself or a community physician who will periodically review the plan of care. Home Meds Active Scripts Bumetanide (BUMETANIDE) 1 Mg Tablet, 1 MG PO DAILY for CHF for 30 Days, #30 TAB Prov:JOSSELIN ARCOS MD 09/22/20 Polyethylene Glycol 3350 (POLYETHYLENE GLYCOL 3350) 17 Gm Powd.pack, 17 GM PO PRN DAILY PRN for CONSTIPATION for 30 Days, #30 PKT 11 Refills Prov:JOSSELIN ARCOS MD 09/22/20 Potassium Chloride (KLOR-CON M20) 20 Meq Tab.er.prt, 1 TAB PO DAILY for on lasix for 30 Days, #30 TAB 0 Refills Prov:KULWINDER MANCIA MD 01/07/20 Metoprolol Tartrate (METOPROLOL TARTRATE) 25 Mg Tablet, 1 TAB PO BID for htn, #180 TAB 1 Refill Prov:EMA ROGERS MD 07/04/19 Metformin Hcl (METFORMIN HCL) 500 Mg Tablet, 500 MG PO BIDWMEALS for ANTI- DIABETIC for 30 Days, #60 TAB 0 Refills Prov:MARY DE LA ROSA MD 12/31/18 Apixaban (ELIQUIS) 5 Mg Tablet, 5 MG PO BID for afib for 30 Days, #60 TAB Prov:MARY DE LA ROSA MD 12/31/18 Reported Medications Duloxetine Hcl (DULOXETINE HCL) 30 Mg Capsule.dr, 1 CAP PO DAILY for Neuropathy for 90 Days, #90 2 Refills 09/21/20 Gabapentin (Gabapentin) 300 Mg Capsule, 1 CAP PO TID for Neuropathy for 90 Days, #270 3 Refills 09/21/20 Famotidine (FAMOTIDINE) 20 Mg Tablet, 20 MG PO BID for gerd, TAB 09/05/20 Insulin Aspart (NOVOLOG FLEXPEN) 100 Unit/1 Ml Insuln.pen, 15 UNIT SQ TIDBFRMEAL for DM, SYR 09/05/20 Methocarbamol (ROBAXIN-750) 750 Mg Tablet, 500 MG PO TID PRN PRN for PAIN, TAB 09/05/20 Hydrocodone Bit/Acetaminophen (HYDROCODONE-APAP 7.5-325 ) 1 Tab Tablet, 1 TAB PO PRN Q6HRS PRN for PAIN, TAB 0 Refills 09/05/20 Aspirin (ASPIR 81) 81 Mg Tablet.dr, 81 MG PO DAILY, TAB 04/13/15 Fenofibrate,Micronized (FENOFIBRATE) 134 Mg Capsule, 134 MG PO DAILY, CAP 04/13/15 Atorvastatin Calcium (ATORVASTATIN CALCIUM) 40 Mg Tablet, 40 MG PO HS, #30 TAB 0 Refills 02/17/14 Amiodarone Hcl (AMIODARONE HCL) 200 Mg Tablet, 200 MG PO DAILY, #30 02/09/14 NAOMI PETERSON MD Oct 22, 2020 14:49
--- NOTE | 2020-10-22 14:53 | PDOC3 ---
Discharge Summary Visit Information Date of Admission: Oct 17, 2020 Date of Discharge: Oct 22, 2020 Final Diagnosis Problems Medical Problems: (1) Acute on chronic diastolic (congestive) heart failure Status: Acute (2) Person under investigation for COVID-19 Status: Acute (3) Pneumonia Status: Acute Brief Hospital Course Allergies Allergies Coded Allergies Type Severity Reaction Last Updated Verified vancomycin Allergy Severe Rash AND SOA 11/23/19 Yes I S O L A T I O N *CONTACT* Allergy Unknown 12/29/19 Yes Vital Signs Vital Signs Date Time Temp Pulse Resp B/P (MAP) Pulse Ox O2 Delivery O2 Flow Rate FiO2 10/22/20 11:00 98.0 59 19 138/75 (96) 97 Nasal Cannula 2.0 98.0 Lab Results Laboratory Tests Test 10/20/20 16:36 10/20/20 21:15 10/21/20 05:22 10/21/20 09:02 Glucose (Fingerstick) 107 mg/dL (70-99) 109 mg/dL (70-99) 77 mg/dL (70-99) White Blood Count 9.5 x10^3/uL (4.0-11.0) Red Blood Count 4.23 x10^6/uL (4.30-5.70) Hemoglobin 11.8 g/dL (13.0-17.5) Hematocrit 36.3 % (39.0-53.0) Mean Corpuscular Volume 86 fL (79-100) Mean Corpuscular Hemoglobin 28 pg (25-35) Mean Corpuscular Hemoglobin Concent 33 g/dL (31-37) Red Cell Distribution Width 14.9 % (11.5-14.5) Platelet Count 722 x10^3/uL (140-400) Neutrophils (%) (Auto) 70 % (31-73) Lymphocytes (%) (Auto) 16 % (24-48) Monocytes (%) (Auto) 10 % (0-9) Eosinophils (%) (Auto) 3 % (0-3) Basophils (%) (Auto) 1 % (0-3) Neutrophils # (Auto) 6.7 x10^3/uL (1.8-7.7) Lymphocytes # (Auto) 1.5 x10^3/uL (1.0-4.8) Monocytes # (Auto) 1.0 x10^3/uL (0.0-1.1) Eosinophils # (Auto) 0.3 x10^3/uL (0.0-0.7) Basophils # (Auto) 0.1 x10^3/uL (0.0-0.2) Sodium Level 140 mmol/L (136-145) Potassium Level 4.0 mmol/L (3.5-5.1) Chloride Level 101 mmol/L (98-107) Carbon Dioxide Level 34 mmol/L (21-32) Anion Gap 5 (6-14) Blood Urea Nitrogen 27 mg/dL (8-26) Creatinine 1.2 mg/dL (0.7-1.3) Estimated GFR (Cockcroft-Gault) 60.2 Glucose Level 88 mg/dL (70-99) Calcium Level 9.4 mg/dL (8.5-10.1) Test 10/21/20 12:04 10/21/20 17:08 10/22/20 07:35 10/22/20 11:35 Glucose (Fingerstick) 109 mg/dL (70-99) 101 mg/dL (70-99) 102 mg/dL (70-99) 103 mg/dL (70-99) White Blood Count 11.5 x10^3/uL (4.0-11.0) Red Blood Count 4.29 x10^6/uL (4.30-5.70) Hemoglobin 11.6 g/dL (13.0-17.5) Hematocrit 36.3 % (39.0-53.0) Mean Corpuscular Volume 85 fL (79-100) Mean Corpuscular Hemoglobin 27 pg (25-35) Mean Corpuscular Hemoglobin Concent 32 g/dL (31-37) Red Cell Distribution Width 14.8 % (11.5-14.5) Platelet Count 753 x10^3/uL (140-400) Neutrophils (%) (Auto) 72 % (31-73) Lymphocytes (%) (Auto) 15 % (24-48) Monocytes (%) (Auto) 10 % (0-9) Eosinophils (%) (Auto) 3 % (0-3) Basophils (%) (Auto) 1 % (0-3) Neutrophils # (Auto) 8.3 x10^3/uL (1.8-7.7) Lymphocytes # (Auto) 1.7 x10^3/uL (1.0-4.8) Monocytes # (Auto) 1.1 x10^3/uL (0.0-1.1) Eosinophils # (Auto) 0.3 x10^3/uL (0.0-0.7) Basophils # (Auto) 0.1 x10^3/uL (0.0-0.2) Sodium Level 137 mmol/L (136-145) Potassium Level 4.3 mmol/L (3.5-5.1) Chloride Level 100 mmol/L (98-107) Carbon Dioxide Level 30 mmol/L (21-32) Anion Gap 7 (6-14) Blood Urea Nitrogen 21 mg/dL (8-26) Creatinine 0.9 mg/dL (0.7-1.3) Estimated GFR (Cockcroft-Gault) 83.9 Glucose Level 89 mg/dL (70-99) Calcium Level 9.6 mg/dL (8.5-10.1) Laboratory Tests Test 10/21/20 17:08 10/22/20 07:35 10/22/20 11:35 Glucose (Fingerstick) 101 mg/dL (70-99) 102 mg/dL (70-99) 103 mg/dL (70-99) White Blood Count 11.5 x10^3/uL (4.0-11.0) Red Blood Count 4.29 x10^6/uL (4.30-5.70) Hemoglobin 11.6 g/dL (13.0-17.5) Hematocrit 36.3 % (39.0-53.0) Mean Corpuscular Volume 85 fL (79-100) Mean Corpuscular Hemoglobin 27 pg (25-35) Mean Corpuscular Hemoglobin Concent 32 g/dL (31-37) Red Cell Distribution Width 14.8 % (11.5-14.5) Platelet Count 753 x10^3/uL (140-400) Neutrophils (%) (Auto) 72 % (31-73) Lymphocytes (%) (Auto) 15 % (24-48) Monocytes (%) (Auto) 10 % (0-9) Eosinophils (%) (Auto) 3 % (0-3) Basophils (%) (Auto) 1 % (0-3) Neutrophils # (Auto) 8.3 x10^3/uL (1.8-7.7) Lymphocytes # (Auto) 1.7 x10^3/uL (1.0-4.8) Monocytes # (Auto) 1.1 x10^3/uL (0.0-1.1) Eosinophils # (Auto) 0.3 x10^3/uL (0.0-0.7) Basophils # (Auto) 0.1 x10^3/uL (0.0-0.2) Sodium Level 137 mmol/L (136-145) Potassium Level 4.3 mmol/L (3.5-5.1) Chloride Level 100 mmol/L (98-107) Carbon Dioxide Level 30 mmol/L (21-32) Anion Gap 7 (6-14) Blood Urea Nitrogen 21 mg/dL (8-26) Creatinine 0.9 mg/dL (0.7-1.3) Estimated GFR (Cockcroft-Gault) 83.9 Glucose Level 89 mg/dL (70-99) Calcium Level 9.6 mg/dL (8.5-10.1) Brief Hospital Course Mr. Harris is a 70 old male who presented with acute on chronic diastolic heart failure probably secondary to noncompliance and accelerated hypertension. Consultations placed to cardiology and patient was aggressively diuresed with IV Bumex. Due to positive blood cultures in 1 of 4 bottles consultations placed to ID, and this was deemed to be contaminant. Patient symptoms improved with diuresis. He was discharged home with home health on oral Bumex 1 mg twice daily. Report was made for close cardiology follow-up. Discharge Information Condition at Discharge: Improved Follow Up: Weeks Disposition/Orders: D/C to Home w/ HH Scheduled Amiodarone Hcl (Amiodarone Hcl) 200 Mg Tablet, 200 MG PO DAILY, #30 (Reported) Entered as Reported by: Marvin Ventura on 02/09/14 1324 Last Action: Continued on 10/18/201457 by JAIMIE GILMAN Apixaban (Eliquis) 5 Mg Tablet, 5 MG PO BID for afib for 30 Days, #60 Prescribed by: MARY DE LA ROSA on 12/31/18 1425 Last Action: Continued on 10/18/201457 by JAIMIE GILMAN Aspirin (Aspir 81) 81 Mg Tablet.dr, 81 MG PO DAILY, (Reported) Entered as Reported by: PACO WHITMORE on 04/13/15738 Last Action: Continued on 10/18/201457 by JAIMIE GILMAN Atorvastatin Calcium (Atorvastatin Calcium) 40 Mg Tablet, 40 MG PO HS, #30 Ref 0 (Reported) Entered as Reported by: PAYTON PEÑA on 02/17/141458 Last Action: Continued on 10/18/201457 by JAIMIE GILMAN Bumetanide (Bumetanide) 1 Mg Tablet, 1 MG PO BID92 for CHF, #60 Ref 1 Prescribed by: NAOMI PETERSON MD on 10/22/20 144 Duloxetine Hcl (Duloxetine Hcl) 30 Mg Capsule.dr, 1 CAP PO DAILY for Neuropathy for 90 Days, #90 Ref 2 (Reported) Entered as Reported by: JOSSELIN ARCOS MD on 09/21/20 105 Last Action: Continued on 10/18/202057 by CHRISSIE NGUYEN Famotidine (Famotidine) 20 Mg Tablet, 20 MG PO BID for gerd, (Reported) Entered as Reported by: SIMON TREADWELL RN on 09/05/20346 Last Action: Continued on 10/18/201457 by JAIMIE GILMAN Fenofibrate,Micronized (Fenofibrate) 134 Mg Capsule, 134 MG PO DAILY, (Reported) Entered as Reported by: PACO WHITMORE on 04/13/1539 Last Action: Continued on 10/18/201457 by JAIMIE GILMAN Gabapentin (Gabapentin) 300 Mg Capsule, 1 CAP PO TID for Neuropathy for 90 Days, #270 Ref 3 (Reported) Entered as Reported by: JOSSELIN ARCOS MD on 09/21/20 105 Last Action: Continued on 10/18/201457 by JAIMIE GILMAN Insulin Aspart (Novolog Flexpen) 100 Unit/1 Ml Insuln.pen, 15 UNIT SQ TIDBFRMEAL for DM, (Reported) Entered as Reported by: SIMON TREADWELL RN on 09/05/20346 Last Action: Converted on 10/18/201457 by JAIMIE GILMAN Metformin Hcl (Metformin Hcl) 500 Mg Tablet, 500 MG PO BIDWMEALS for ANTI- DIABETIC for 30 Days, #60 Ref 0 Prescribed by: MARY DE LA ROSA on 12/31/18 1425 Last Action: Continued on 10/18/201457 by JAIMEI GILMAN Metoprolol Tartrate (Metoprolol Tartrate) 25 Mg Tablet, 1 TAB PO BID for htn, #180 Ref 1 Prescribed by: EMA ROGERS on 07/04/19 0856 Last Action: Continued on 10/18/201457 by JAIMIE GILMAN Potassium Chloride (Klor-Con M20) 20 Meq Tab.er.prt, 1 TAB PO DAILY for on lasix for 30 Days, #30 Ref 0 Prescribed by: KULWINDER MANCIA MD on 01/07/20 1009 Last Action: Continued on 10/18/201457 by JAIMIE GILMAN Scheduled PRN Hydrocodone Bit/Acetaminophen (Hydrocodone-Apap 7.5-325 ) 1 Tab Tablet, 1 TAB PO PRN Q6HRS PRN for PAIN, Ref 0 (Reported) Entered as Reported by: SIMON TREADWELL RN on 09/05/20346 Last Action: Continued on 10/18/202057 by CHRISSIE NGUYEN Methocarbamol (Robaxin-750) 750 Mg Tablet, 500 MG PO TID PRN PRN for PAIN, (Reported) Entered as Reported by: SIMON TREADWELL RN on 09/05/20346 Polyethylene Glycol 3350 (Polyethylene Glycol 3350) 17 Gm Powd.pack, 17 GM PO PRN DAILY PRN for CONSTIPATION for 30 Days, #30 Ref 11 Prescribed by: JOSSELIN ARCOS MD on 09/22/20 1014 Discontinued Medications Bumetanide (Bumetanide) 1 Mg Tablet, 1 MG PO DAILY for CHF for 30 Days, #30 Prescribed by: JOSSELIN ARCOS MD on 09/22/20 1014 Last Action: Continued on 10/18/201457 by JAIMIE GILMAN Justicifation of Admission Dx: Justifications for Admission: Justification of Admission Dx: Yes CHF: Hemodynamic Instability Comminuty Aquired Pneumonia: Hypoxemia NAOMI PETERSON MD Oct 22, 2020 14:53
--- NOTE | 2020-10-22 16:18 | NUR ---
Discharge: Teaching verbal and written. Reviewed medications, follow-up, CHF, fluid restriction, cardiac diet, ect. Patient and daughter verbalized understanding. [facility] set up. All belongings with patient. Patient assisted off of unit via wheelchair accompanied by daughter and DELIVERY CLERK
[2020-10-23] MEDS ORDERED: BUMETANIDE 1 MG TABLET. PO SCH (09:00)
== END 2020-10-22 16:10 | disposition home health service (06) | DRG 193 ==
LOC: ER 18:19 → 2 SOUTH 22:46
PROVIDERS: ADMIT Internal Medicine; ATTEND Internal Medicine
DX: J18.9 Pneumonia, unspecified organism (principal); I50.43 Acute on chronic combined systolic (congestive) and diastolic (congestive) heart failure; E43 Unspecified severe protein-calorie malnutrition; I13.0 Hypertensive heart and chronic kidney disease with heart failure and stage 1 through stage 4 chronic kidney disease, or unspecified chronic kidney disease; Z68.43 Body mass index [BMI] 50.0-59.9, adult; E11.22 Type 2 diabetes mellitus with diabetic chronic kidney disease; E66.01 Morbid (severe) obesity due to excess calories; E78.00 Pure hypercholesterolemia, unspecified; E78.5 Hyperlipidemia, unspecified; I25.10 Atherosclerotic heart disease of native coronary artery without angina pectoris; I48.0 Paroxysmal atrial fibrillation; I25.2 Old myocardial infarction; I49.5 Sick sinus syndrome; I89.0 Lymphedema, not elsewhere classified; K59.00 Constipation, unspecified; N18.9 Chronic kidney disease, unspecified; Z20.822 Contact with and (suspected) exposure to COVID-19; Z79.899 Other long term (current) drug therapy; Z82.5 Family history of asthma and other chronic lower respiratory diseases; Z83.3 Family history of diabetes mellitus; Z87.891 Personal history of nicotine dependence; Z90.49 Acquired absence of other specified parts of digestive tract; Z91.14 Patient's other noncompliance with medication regimen; Z91.19 Patient's noncompliance with other medical treatment and regimen; Z95.0 Presence of cardiac pacemaker; Z95.5 Presence of coronary angioplasty implant and graft; Z88.8 Allergy status to other drugs, medicaments and biological substances
CPT/HCPCS: 36415; 71045; 80048; 80053; 82962; 83605; 83880; 84484; 85007; 85025; 87040; 87077; 87205; 93005; 96365; 96375; 96376; J1815; J2270; J2405; J2543; J3490; U0003; 97535-GO; 99285-25; G0378

== ENCOUNTER 2021-06-13 12:00 | Inpatient (IN) | payer MEDICARE ==
[~2021-06-13] VITALS: Ht 165.1 cm; Wt 142.6 kg
[~2021-06-13 12:00] MED LIST changes: +CEPH500C PO; +DILT240C33 PO; -DOXY100C2 PO; +DOXY100C3 PO; +LINE600T12 PO; +Oxygen NAS; +POTA-121 PO; -POTA20TA4 PO
[2021-06-13] MEDS ORDERED: MORPHINE SULFATE 4 MG/ML INJ. IVP ONE (12:30)
--- NOTE | 2021-06-13 12:32 | PHYS DOC ---
Past Medical History Past Medical History: A-Fib, CAD, CHF, Diabetes-Type II, High Cholesterol, [place] Additional Past Medical Histor: SEPSIS Past Surgical History: Angioplasty, Cholecystectomy, Pacemaker Additional Past Surgical Histo: ROTATOR CUFF,HERNIA,CARDIAC STENT Smoking Status: Former Smoker Alcohol Use: None Drug Use: None General Adult EDM: Chief Complaint: WOUND CHECK HPI: HPI: Patient is a 71 year old male who was brought here by EMS from home due to left leg wound. Patient had this wound for years. Patient says [facility], [facility] ago. He continues to have cellulitis of his left lower extremity, but the last 3-day is to have more blister and more drainage from the wound on left leg. Patient said he was in a lot of pain. Patient denies any cough or fever. Patient has history of diabetic, morbidly obese. Review of Systems: Review of Systems: Constitutional: Denies fever or chills. [] Eyes: Denies change in visual acuity. [] HENT: Denies nasal congestion or sore throat. [] Respiratory: Denies cough or shortness of breath. [] Cardiovascular: Denies chest pain or edema. [] GI: Denies abdominal pain, nausea, vomiting, bloody stools or diarrhea. [] : Denies dysuria. [] Musculoskeletal: Denies back pain or joint pain. [] Integument: Positive for left leg pain with rash, swelling Neurologic: Denies headache, focal weakness or sensory changes. [] Endocrine: Denies polyuria or polydipsia. [] Lymphatic: Denies swollen glands. [] Psychiatric: Denies depression or anxiety. [] Heart Score: C/O Chest Pain: N/A Risk Factors: Risk Factors: DM, Current or recent (<one month) smoker, HTN, HLP, family history of CAD, obesity. Risk Scores: Score 0 - 3: 2.5% MACE over next 6 weeks - Discharge Home Score 4 - 6: 20.3% MACE over next 6 weeks - Admit for Clinical Observation Score 7 - 10: 72.7% MACE over next 6 weeks - Early Invasive Strategies Current Medications: Current Medications Medications (Trade) Dose Ordered Sig/Lito Start Time Stop Time Status Last Admin Dose Admin Morphine Sulfate (Morphine Sulfate) 4 mg 1X ONCE 06/13/21 12:30 06/13/21 12:31 UNV Allergies: Allergies: Allergies Coded Allergies Type Severity Reaction Last Updated Verified vancomycin Allergy Severe Rash AND SOA 11/23/19 Yes I S O L A T I O N *CONTACT* Allergy Unknown 12/29/19 Yes Physical Exam: PE: Constitutional: Well developed, well nourished, no acute distress, non-toxic appearance. Morbidly obese. HENT: Normocephalic, atraumatic, bilateral external ears normal, oropharynx moist, no oral exudates, nose normal. [] Eyes: PERRLA, EOMI, conjunctiva normal, no discharge. [] Neck: Normal range of motion, no tenderness, supple, no stridor. [] Cardiovascular:Heart rate regular rhythm, no murmur [] Lungs & Thorax: Bilateral breath sounds clear to auscultation [] Abdomen: Bowel sounds normal, soft, no tenderness, no masses, no pulsatile masses. [] Skin: Warm, dry, no erythema, no rash. [] Back: No tenderness, no CVA tenderness. [] Extremities: The entire left leg is swelling, erythema with multiple open wounds with clear drainage, left leg is tender to palpation. Neurologic: Alert and oriented X 3, normal motor function, normal sensory function, no focal deficits noted. [] Psychologic: Affect normal, judgement normal, mood normal. [] Current Patient Data: Labs: Laboratory Tests Test 06/13/21 12:35 06/13/21 12:55 White Blood Count 13.8 x10^3/uL Red Blood Count 3.83 x10^6/uL Hemoglobin 10.5 g/dL Hematocrit 31.6 % Mean Corpuscular Volume 83 fL Mean Corpuscular Hemoglobin 28 pg Mean Corpuscular Hemoglobin Concent 33 g/dL Red Cell Distribution Width 17.5 % Platelet Count 698 x10^3/uL Neutrophils (%) (Auto) 78 % Lymphocytes (%) (Auto) 11 % Monocytes (%) (Auto) 9 % Eosinophils (%) (Auto) 2 % Basophils (%) (Auto) 1 % Neutrophils # (Auto) 10.7 x10^3/uL Lymphocytes # (Auto) 1.6 x10^3/uL Monocytes # (Auto) 1.2 x10^3/uL Eosinophils # (Auto) 0.3 x10^3/uL Basophils # (Auto) 0.1 x10^3/uL Sodium Level 133 mmol/L Potassium Level 3.1 mmol/L Chloride Level 93 mmol/L Carbon Dioxide Level 29 mmol/L Anion Gap 11 Blood Urea Nitrogen 32 mg/dL Creatinine 1.6 mg/dL Estimated GFR (Cockcroft-Gault) 43.1 BUN/Creatinine Ratio 20 Glucose Level 94 mg/dL Calcium Level 9.3 mg/dL Magnesium Level 1.7 mg/dL Total Bilirubin 0.3 mg/dL Aspartate Amino Transf (AST/SGOT) 14 U/L Alanine Aminotransferase (ALT/SGPT) 21 U/L Alkaline Phosphatase 70 U/L Total Protein 8.6 g/dL Albumin 2.9 g/dL Albumin/Globulin Ratio 0.5 SARS-CoV-2 Antigen (Rapid) Negative Current Medications Medications (Trade) Dose Ordered Sig/Lito Route PRN Reason Start Time Stop Time Status Last Admin Dose Admin Morphine Sulfate (Morphine Sulfate) 4 mg 1X ONCE IVP 06/13/21 12:30 06/13/21 12:31 DC 06/13/21 12:50 Vital Signs: Vital Signs Date Time Temp Pulse Resp B/P (MAP) Pulse Ox O2 Delivery O2 Flow Rate FiO2 06/13/21 12:00 98.5 86 20 139/73 (95) 96 Room Air 98.5 EKG: EKG: [] Radiology/Procedures: Radiology/Procedures: [] Course & Med Decision Making: Course & Med Decision Making Pertinent Labs and Imaging studies reviewed. (See chart for details) [] Dragon Disclaimer: Dragon Disclaimer: This electronic medical record was generated, in whole or in part, using a voice recognition dictation system. Departure Departure Impression: Primary Impression: Left leg cellulitis Disposition: ADMITTED INPATIENT Admitting Physician: CHALINO (Dr. Petersen) Condition: STABLE Referrals: MARY DE LA ROSA MD (PCP) ALEC LOPEZ DO Jun 13, 2021 12:32
[2021-06-13] MEDS ORDERED: PIP/TAZO PER PHARMACY MC PRN (12:45)
[2021-06-13] MEDS ORDERED: PIPERACILLIN/TAZOBACTAM 3.375 GM in IV NORMAL SALINE 50ML 50 ML IV ONE (12:45)
[2021-06-13 12:47] LABS: BASO # 0.1 x10^3/uL (0.0-0.2); BASO % 1 % (0-3); EOS # 0.3 x10^3/uL (0.0-0.7); EOS % 2 % (0-3); HEMATOCRIT 31.6 % (39.0-53.0); HEMOGLOBIN 10.5 g/dL (13.0-17.5); LYMPH # 1.6 x10^3/uL (1.0-4.8); LYMPH % 11 % (24-48); MEAN CORPUSCULAR HEMOGLOBIN 28 pg (25-35); MEAN CORPUSCULAR HGB CONC 33 g/dL (31-37); MEAN CORPUSCULAR VOLUME 83 fL (79-100); MONO # 1.2 x10^3/uL (0.0-1.1); MONO % 9 % (0-9); NEUT # 10.7 x10^3/uL (1.8-7.7); NEUT % 78 % (31-73); PLATELET COUNT 698 x10^3/uL (140-400); RED BLOOD COUNT 3.83 x10^6/uL (4.30-5.70); RED CELL DISTRIBUTION WIDTH 17.5 % (11.5-14.5); WHITE BLOOD COUNT 13.8 x10^3/uL (4.0-11.0)
[2021-06-13 12:54] LABS: CALCIUM 9.3 mg/dL (8.5-10.1); CREATININE 1.6 mg/dL (0.7-1.3); GFR 43.1; POTASSIUM 3.1 mmol/L (3.5-5.1)
[2021-06-13 13:00] LABS: ALBUMIN 2.9 g/dL (3.4-5.0); ALBUMIN/GLOBULIN RATIO 0.5 (1.0-1.7); MAGNESIUM 1.7 mg/dL (1.8-2.4); TOTAL BILIRUBIN 0.3 mg/dL (0.2-1.0); TOTAL PROTEIN 8.6 g/dL (6.4-8.2)
[2021-06-13] MEDS ORDERED: POLYETHYLENE GLYCOL 3350 17 GM PACKET. PO PRN (13:15)
[2021-06-13] MEDS ORDERED: ONDANSETRON PF 4 MG/2 ML VIAL. IVP PRN (13:15)
[2021-06-13] MEDS ORDERED: PROCHLORPERAZINE 10 MG/2 ML VIAL. IV PRN (13:15)
[2021-06-13] MEDS ORDERED: ACETAMINOPHEN 325 MG TABLET. PO PRN (13:15)
[2021-06-13] MEDS ORDERED: HYDROmorphone 2 MG/ML VIAL IVP ONE (13:15)
[2021-06-13] MEDS ORDERED: SENNOSIDES 8.6 MG TABLET PO PRN (13:15)
[2021-06-13] MEDS ORDERED: DEXTROSE 50% 25 GM / 50ML DISP.SYRIN. IV PRN (13:15)
[2021-06-13] MEDS ORDERED: DOCUSATE SODIUM 100 MG CAPSULE. PO PRN (13:15)
--- NOTE | 2021-06-13 13:17 | PDOC1 ---
History and Physical Date of Service: DOS: DATE: 06/13/21 TIME: 13:06 Chief Complaint: Chief Complain: Left leg wound History of Present Illness: HPI: History obtained from discussion with the ED physician and chart review: 71 year old male who was brought here by EMS from home due to left leg wound. Patient had this wound for years. Patient says [facility], [facility] ago. He continues to have cellulitis of his left lower extremity, but the last 3-day is to have more blister and more drainage from the wound on left leg. Patient said he was in a lot of pain. Patient denies any cough or fever. Patient has history of diabetic, morbidly obese. Past Medical/Surgical History: PMH/PSH: Past Medical History: A-Fib, CAD, CHF, Diabetes-Type II, High Cholesterol, [place] Past Surgical History: Angioplasty, Cholecystectomy, Pacemaker, ROTATOR CUFF,HERNIA,CARDIAC STENT Allergies: Allergies: Coded Allergies: vancomycin (Verified Allergy, Severe, Rash AND SOA, 11/23/19) I S O L A T I O N *CONTACT* (Verified Allergy, Unknown, 12/29/19) ESBL Family History: Family History: Reviewed with no relevant findings Social History: Social History: Smoking Status: Former Smoker Alcohol Use: None Drug Use: None Current Medications: Current Medications Current Medications Morphine Sulfate (Morphine Sulfate) 4 mg 1X ONCE IVP Last administered on 06/13/21at 12:50; Start 06/13/21 at 12:30; Stop 06/13/21 at 12:31; Status DC Piperacillin Sod/ Tazobactam Sod (Zosyn Per Pharmacy) 1 each PRN DAILY PRN [facility] SEE COMMENTS; Start 06/13/21 at 12:45; Status UNV Piperacillin Sod/ Tazobactam Sod 3.375 gm/Sodium Chloride 50 ml @ 100 mls/hr 1X ONCE IV Last administered on 06/13/21at 12:50; Start 06/13/21 at 12:45; Stop 06/13/21 at 13:14 Morphine Sulfate (Morphine Sulfate) 4 mg PRN Q2HR PRN IVP PAIN; Start 06/13/21 at 12:45; Stop 06/14/21 at 12:44 Active Scripts Active [Oxygen] 2 L DEJUAN CONT PRN Zyvox (Linezolid) 600 Mg Tablet 600 Mg PO BID 10 Days for two weeks. Started 04/01/21. Hydrocodone-Apap 7.5-325 (Hydrocodone Bit/Acetaminophen) 1 Tab Tablet 1 Tab PO PRN Q6HRS PRN 14 Days .. Polyethylene Glycol 3350 17 Gm Powd.pack 17 Gm PO PRN DAILY PRN 30 Days Klor-Con M20 (Potassium Chloride) 20 Meq Tab.er.prt 1 Tab PO DAILY 30 Days Metoprolol Tartrate 25 Mg Tablet 1 Tab PO BID Metformin Hcl 500 Mg Tablet 500 Mg PO BIDWMEALS 30 Days Eliquis (Apixaban) 5 Mg Tablet 5 Mg PO BID 30 Days Reported Diltiazem 24Hr Cd (Diltiazem HCl) 240 Mg Cap.er.24h 1 Cap PO DAILY Cephalexin 500 Mg Capsule 1 Cap PO QID Furosemide 40 Mg Tablet 1 Tab PO BID Duloxetine Hcl 30 Mg Capsule.dr 1 Cap PO DAILY 90 Days Gabapentin 300 Mg Capsule 1 Cap PO TID 90 Days Famotidine 20 Mg Tablet 20 Mg PO BID Novolog Flexpen (Insulin Aspart) 100 Unit/1 Ml Insuln.pen 15 Unit SQ TIDBFRMEAL Robaxin-750 (Methocarbamol) 750 Mg Tablet 500 Mg PO TID PRN PRN Aspir 81 (Aspirin) 81 Mg Tablet.dr 81 Mg PO DAILY Fenofibrate (Fenofibrate,Micronized) 134 Mg Capsule 134 Mg PO DAILY Atorvastatin Calcium 40 Mg Tablet 40 Mg PO HS Amiodarone Hcl 200 Mg Tablet 200 Mg PO DAILY ROS: Review of Systems Review of System REVIEW OF SYSTEMS: GENERAL: Denies weakness SKIN: No bruising, hair changes or rashes. EYES: No blurred, double or loss of vision. NOSE AND THROAT: No history of nosebleeds, hoarseness or sore throat. HEART: No history of palpitations, chest pain or shortness of breath on exertion. LUNGS: Denies cough, hemoptysis, wheezing or shortness of breath. GASTROINTESTINAL: Denies changes in appetite, nausea, vomiting, diarrhea or constipation. GENITOURINARY: No history of frequency, urgency, hesitancy or nocturia. NEUROLOGIC: Denies history of numbness, tingling, or tremor. PSYCHIATRIC: No history of panic, anxiety or depression. ENDOCRINE: No history of heat or cold intolerance, polyuria or polydipsia. EXTREMITIES: Left leg pain and redness Physical Exam: Vital Signs: Vital Signs Date Time Temp Pulse Resp B/P (MAP) Pulse Ox O2 Delivery O2 Flow Rate FiO2 06/13/21 12:50 22 98 Room Air 06/13/21 12:00 98.5 86 139/73 (95) 98.5 Physcial Exam: General: Well developed, well nourished, no acute distress, well appearing HEENT: Pupils equally round and reactive to light, EOMI, no discharge, normal conjunctiva Neck: Supple, no nuchal rigidity, no JVD, trachea midline, no tenderness Cardiac: RRR, no murmurs, no gallops, no rubs Chest/Lungs: CTAB, no wheeze, no rhonchi, no crackles Abdomen: soft, non-distended, no guarding, no peritoneal signs, non-tender Back: No tenderness Extremities: Left lower extremity with swelling and erythema with multiple open wounds. Wounds are draining clear fluid. Tender to palpation throughout Neuro: Alert and oriented x 4, no focal deficits, normal speech Labs: Labs: Laboratory Tests Test 06/13/21 12:35 White Blood Count 13.8 x10^3/uL (4.0-11.0) Red Blood Count 3.83 x10^6/uL (4.30-5.70) Hemoglobin 10.5 g/dL (13.0-17.5) Hematocrit 31.6 % (39.0-53.0) Mean Corpuscular Volume 83 fL (79-100) Mean Corpuscular Hemoglobin 28 pg (25-35) Mean Corpuscular Hemoglobin Concent 33 g/dL (31-37) Red Cell Distribution Width 17.5 % (11.5-14.5) Platelet Count 698 x10^3/uL (140-400) Neutrophils (%) (Auto) 78 % (31-73) Lymphocytes (%) (Auto) 11 % (24-48) Monocytes (%) (Auto) 9 % (0-9) Eosinophils (%) (Auto) 2 % (0-3) Basophils (%) (Auto) 1 % (0-3) Neutrophils # (Auto) 10.7 x10^3/uL (1.8-7.7) Lymphocytes # (Auto) 1.6 x10^3/uL (1.0-4.8) Monocytes # (Auto) 1.2 x10^3/uL (0.0-1.1) Eosinophils # (Auto) 0.3 x10^3/uL (0.0-0.7) Basophils # (Auto) 0.1 x10^3/uL (0.0-0.2) Sodium Level 133 mmol/L (136-145) Potassium Level 3.1 mmol/L (3.5-5.1) Chloride Level 93 mmol/L (98-107) Carbon Dioxide Level 29 mmol/L (21-32) Anion Gap 11 (6-14) Blood Urea Nitrogen 32 mg/dL (8-26) Creatinine 1.6 mg/dL (0.7-1.3) Estimated GFR (Cockcroft-Gault) 43.1 BUN/Creatinine Ratio 20 (6-20) Glucose Level 94 mg/dL (70-99) Calcium Level 9.3 mg/dL (8.5-10.1) Magnesium Level 1.7 mg/dL (1.8-2.4) Total Bilirubin 0.3 mg/dL (0.2-1.0) Aspartate Amino Transf (AST/SGOT) 14 U/L (15-37) Alanine Aminotransferase (ALT/SGPT) 21 U/L (16-63) Alkaline Phosphatase 70 U/L (46-116) Total Protein 8.6 g/dL (6.4-8.2) Albumin 2.9 g/dL (3.4-5.0) Albumin/Globulin Ratio 0.5 (1.0-1.7) Laboratory Tests Test 06/13/21 12:35 White Blood Count 13.8 x10^3/uL (4.0-11.0) Red Blood Count 3.83 x10^6/uL (4.30-5.70) Hemoglobin 10.5 g/dL (13.0-17.5) Hematocrit 31.6 % (39.0-53.0) Mean Corpuscular Volume 83 fL (79-100) Mean Corpuscular Hemoglobin 28 pg (25-35) Mean Corpuscular Hemoglobin Concent 33 g/dL (31-37) Red Cell Distribution Width 17.5 % (11.5-14.5) Platelet Count 698 x10^3/uL (140-400) Neutrophils (%) (Auto) 78 % (31-73) Lymphocytes (%) (Auto) 11 % (24-48) Monocytes (%) (Auto) 9 % (0-9) Eosinophils (%) (Auto) 2 % (0-3) Basophils (%) (Auto) 1 % (0-3) Neutrophils # (Auto) 10.7 x10^3/uL (1.8-7.7) Lymphocytes # (Auto) 1.6 x10^3/uL (1.0-4.8) Monocytes # (Auto) 1.2 x10^3/uL (0.0-1.1) Eosinophils # (Auto) 0.3 x10^3/uL (0.0-0.7) Basophils # (Auto) 0.1 x10^3/uL (0.0-0.2) Sodium Level 133 mmol/L (136-145) Potassium Level 3.1 mmol/L (3.5-5.1) Chloride Level 93 mmol/L (98-107) Carbon Dioxide Level 29 mmol/L (21-32) Anion Gap 11 (6-14) Blood Urea Nitrogen 32 mg/dL (8-26) Creatinine 1.6 mg/dL (0.7-1.3) Estimated GFR (Cockcroft-Gault) 43.1 BUN/Creatinine Ratio 20 (6-20) Glucose Level 94 mg/dL (70-99) Calcium Level 9.3 mg/dL (8.5-10.1) Magnesium Level 1.7 mg/dL (1.8-2.4) Total Bilirubin 0.3 mg/dL (0.2-1.0) Aspartate Amino Transf (AST/SGOT) 14 U/L (15-37) Alanine Aminotransferase (ALT/SGPT) 21 U/L (16-63) Alkaline Phosphatase 70 U/L (46-116) Total Protein 8.6 g/dL (6.4-8.2) Albumin 2.9 g/dL (3.4-5.0) Albumin/Globulin Ratio 0.5 (1.0-1.7) Images: Images No recent images to review Assessment/Plan Assessment/Plan Left lower extremity cellulitis failing outpatient therapy Acute electrolyte derangementhyponatremia, hypochloremia due to volume depletio n ZACHERY due to vasomotor nephropathy Severe protein malnutrition Anemia of chronic disease Morbid Obesity History of atrial fibrillation History of CHF, diastolic dysfunction History of diabetes mellitus type 2 History of dyslipidemia Admit to hospitalist service for further management Continue empiric IV antibiotics Strict I's and O's Avoid nephrotoxic agents IV electrolyte replacement Continue IV fluids Eliquis for DVT prophylaxis Protonix GI prophylaxis ADA diet CODE STATUS full Discussed with RN and SW Disposition inpatient management as above DPOA: In addition to E/M visit, advanced care planning was done: A total time of 20 minutes was spent from 1730 to 1750 face to face in discussion with the patient regarding their goals of care, and CODE status Justifications for Admission Other Justification CEFERINO ALCANTAR MD Jun 13, 2021 13:16
[2021-06-13] MEDS ORDERED: FUROSEMIDE 40 MG/4 ML VIAL. IVP ONE (15:30)
[2021-06-13] MEDS: GABAPENTIN 300 MG CAPSULE. PO SCH ×2 (15:46→20:49)
[2021-06-13] MEDS: MORPHINE SULFATE 2 MG/ML INJ. IVP PRN ×2 (15:47→19:20)
[2021-06-13] MEDS ORDERED: FUROSEMIDE 40 MG TABLET. PO SCH (16:00)
[2021-06-13] MEDS: INSULIN LISPRO 300 UNITS/3 ML VIAL. SQ SCH ×2 (16:54→17:50)
[2021-06-13] MEDS: HYDROcodone/APAP 7.5/325MG 1 TAB TABLET PO PRN (17:38)
[2021-06-13] MEDS: PIPERACILLIN/TAZOBACTAM 3.375 GM in IV NORMAL SALINE 50ML 50 ML IV SCH ×2 (17:40→23:49)
[2021-06-13 19:40] VITALS: BP 102/62
[2021-06-13] MEDS: METHOCARBAMOL 500 MG TABLET PO PRN (20:48)
[2021-06-13] MEDS: LINEZOLID 600 MG TABLET PO SCH (20:48)
[2021-06-13] MEDS: APIXABAN 5 MG TABLET. PO SCH (20:49)
[2021-06-13] MEDS: ATORVASTATIN CALCIUM 40 MG TABLET. PO SCH (20:49)
[2021-06-13] MEDS: METOPROLOL TART IMMED RELEASE 25 MG TABLET. PO SCH (20:49)
[2021-06-13] MEDS: FAMOTIDINE 20 MG TABLET. PO SCH (20:49)
[2021-06-13] MEDS: MORPHINE SULFATE 4 MG/ML INJ. IVP PRN (21:42)
[2021-06-13 23:32] VITALS: BP 107/47
[2021-06-14] MEDS: HYDROcodone/APAP 7.5/325MG 1 TAB TABLET PO PRN ×3 (02:08→22:12)
[2021-06-14] MEDS: MORPHINE SULFATE 4 MG/ML INJ. IVP PRN ×3 (02:58→10:10)
[2021-06-14 03:21] VITALS: BP 124/54
[2021-06-14 05:10] LABS: BASO # 0.1 x10^3/uL (0.0-0.2); BASO % 1 % (0-3); EOS # 0.1 x10^3/uL (0.0-0.7); EOS % 1 % (0-3); HEMATOCRIT 27.6 % (39.0-53.0); HEMOGLOBIN 9.3 g/dL (13.0-17.5); LYMPH # 1.7 x10^3/uL (1.0-4.8); LYMPH % 11 % (24-48); MEAN CORPUSCULAR HEMOGLOBIN 28 pg (25-35); MEAN CORPUSCULAR HGB CONC 34 g/dL (31-37); MEAN CORPUSCULAR VOLUME 82 fL (79-100); MONO # 1.5 x10^3/uL (0.0-1.1); MONO % 10 % (0-9); NEUT # 11.7 x10^3/uL (1.8-7.7); NEUT % 78 % (31-73); PLATELET COUNT 610 x10^3/uL (140-400); RED BLOOD COUNT 3.37 x10^6/uL (4.30-5.70)
[2021-06-14 05:47] LABS: CALCIUM 8.9 mg/dL (8.5-10.1); CREATININE 1.4 mg/dL (0.7-1.3); GFR 50.2
[2021-06-14 05:48] LABS: MAGNESIUM 1.7 mg/dL (1.8-2.4); PHOSPHORUS 3.5 mg/dL (2.6-4.7)
[2021-06-14 05:54] LABS: POTASSIUM 2.6 mmol/L (3.5-5.1)
[2021-06-14] MEDS: PIPERACILLIN/TAZOBACTAM 3.375 GM in IV NORMAL SALINE 50ML 50 ML IV SCH ×4 (06:18→23:50)
[2021-06-14 07:00] VITALS: BP 112/67
[2021-06-14] MEDS ORDERED: MAGNESIUM SULFATE 2GM 50 ML IV ONE (07:00)
[2021-06-14] MEDS: INSULIN LISPRO 300 UNITS/3 ML VIAL. SQ SCH ×6 (07:59→17:00)
[2021-06-14] MEDS: METOPROLOL TART IMMED RELEASE 25 MG TABLET. PO SCH ×2 (09:00→20:57)
[2021-06-14] MEDS: ASPIRIN ENTERIC COATED 81 MG TABLET.DR. PO SCH (09:24)
[2021-06-14] MEDS: APIXABAN 5 MG TABLET. PO SCH ×2 (09:24→20:56)
[2021-06-14] MEDS: POTASSIUM CHLORIDE 20 MEQ TABLET.ER. PO SCH ×3 (09:25→18:26)
[2021-06-14] MEDS: FENOFIBRATE,MICRONIZED 134 MG CAPSULE PO SCH (09:26)
[2021-06-14] MEDS: METHOCARBAMOL 500 MG TABLET PO PRN ×2 (09:26→22:12)
[2021-06-14] MEDS: DULoxetine HCL 30 MG CAPSULE.DR PO SCH (09:26)
[2021-06-14] MEDS: FAMOTIDINE 20 MG TABLET. PO SCH ×2 (09:26→20:57)
[2021-06-14] MEDS: LINEZOLID 600 MG TABLET PO SCH ×2 (09:27→20:57)
[2021-06-14] MEDS: AMIODARONE HCL 200 MG TABLET. PO SCH (09:27)
[2021-06-14] MEDS: GABAPENTIN 300 MG CAPSULE. PO SCH ×3 (09:27→20:57)
--- NOTE | 2021-06-14 10:24 | PDOC ---
PROGRESS NOTES Date of Service: DATE: 06/14/21 TIME: 10:24 Chief Complaint Chief Complaint IMPRESSION Assessment/Plan Left lower extremity cellulitis failing outpatient therapy Acute electrolyte derangementhyponatremia, hypochloremia due to volume deplet ion ZACHERY due to vasomotor nephropathy Severe protein malnutrition Anemia of chronic disease Morbid Obesity, SEVERE History of atrial fibrillation History of CHF, diastolic dysfunction History of diabetes mellitus type 2 History of dyslipidemia MILD HYPOXIA Admit to hospitalist service for further management Continue empiric IV antibiotics Strict I's and O's Avoid nephrotoxic agents IV electrolyte replacement Continue IV fluids Eliquis for DVT prophylaxis Protonix GI prophylaxis ADA diet CODE STATUS full Discussed with RN Disposition inpatient management as above DPOA: CXR TODAY Continue Zosyn and Zyvox Elevate left lower extremity. Justifications for Admission Justifications for Admission Other Justification History of Present Illness History of Present Illness 71 year old male who was brought here by EMS from home due to left leg wound. Patient had this wound for years. Patient says he was at the skilled nursing for treatment, was discharged from the skilled nursing 1 month ago. He continues to have cellulitis of his left lower extremity, but the last 3-day is to have more blister and more drainage from the wound on left leg. Patient said he was in a lot of pain. Patient denies any cough or fever. Patient has history of diabetic, morbidly obese. Past Medical/Surgical History: PMH/PSH: Past Medical History: A-Fib, CAD, CHF, Diabetes-Type II, High Cholesterol, [place] Past Surgical History: Angioplasty, Cholecystectomy, Pacemaker, ROTATOR CUFF,HERNIA,CARDIAC STENT Allergies: Allergies: Coded Allergies: vancomycin (Verified Allergy, Severe, Rash AND SOA, 11/23/19) I S O L A T I O N *CONTACT* (Verified Allergy, Unknown, 12/29/19) ESBL Family History: Family History: Reviewed with no relevant findings Social History: Social History: Smoking Status: Former Smoker Alcohol Use: None Drug Use: None Current Medications: Current Medications Current Medications Morphine Sulfate (Morphine Sulfate) 4 mg 1X ONCE IVP Last administered on 06/13/21at 12:50; Start 06/13/21 at 12:30; Stop 06/13/21 at 12:31; Status DC Piperacillin Sod/ Tazobactam Sod (Zosyn Per Pharmacy) 1 each PRN DAILY PRN MC SEE COMMENTS; Start 06/13/21 at 12:45; Status UNV Piperacillin Sod/ Tazobactam Sod 3.375 gm/Sodium Chloride 50 ml @ 100 mls/hr 1X ONCE IV Last administered on 06/13/21at 12:50; Start 06/13/21 at 12:45; Stop 06/13/21 at 13:14 Morphine Sulfate (Morphine Sulfate) 4 mg PRN Q2HR PRN IVP PAIN; Start 06/13/21 at 12:45; Stop 06/14/21 at 12:44 Active Scripts Active [Oxygen] 2 L DEJUAN CONT PRN Zyvox (Linezolid) 600 Mg Tablet 600 Mg PO BID 10 Days for two weeks. Started 04/01/21. Hydrocodone-Apap 7.5-325 (Hydrocodone Bit/Acetaminophen) 1 Tab Tablet 1 Tab PO PRN Q6HRS PRN 14 Days .. Polyethylene Glycol 3350 17 Gm Powd.pack 17 Gm PO PRN DAILY PRN 30 Days Klor-Con M20 (Potassium Chloride) 20 Meq Tab.er.prt 1 Tab PO DAILY 30 Days Metoprolol Tartrate 25 Mg Tablet 1 Tab PO BID Metformin Hcl 500 Mg Tablet 500 Mg PO BIDWMEALS 30 Days Eliquis (Apixaban) 5 Mg Tablet 5 Mg PO BID 30 Days Reported Diltiazem 24Hr Cd (Diltiazem HCl) 240 Mg Cap.er.24h 1 Cap PO DAILY Cephalexin 500 Mg Capsule 1 Cap PO QID Furosemide 40 Mg Tablet 1 Tab PO BID Duloxetine Hcl 30 Mg Capsule.dr 1 Cap PO DAILY 90 Days Gabapentin 300 Mg Capsule 1 Cap PO TID 90 Days Famotidine 20 Mg Tablet 20 Mg PO BID Novolog Flexpen (Insulin Aspart) 100 Unit/1 Ml Insuln.pen 15 Unit SQ TIDBFRMEAL Robaxin-750 (Methocarbamol) 750 Mg Tablet 500 Mg PO TID PRN PRN Aspir 81 (Aspirin) 81 Mg Tablet.dr 81 Mg PO DAILY Fenofibrate (Fenofibrate,Micronized) 134 Mg Capsule 134 Mg PO DAILY Atorvastatin Calcium 40 Mg Tablet 40 Mg PO HS Amiodarone Hcl 200 Mg Tablet 200 Mg PO DAILY ROS: Review of Systems Review of System REVIEW OF SYSTEMS: GENERAL: Denies weakness SKIN: No bruising, hair changes or rashes. EYES: No blurred, double or loss of vision. NOSE AND THROAT: No history of nosebleeds, hoarseness or sore throat. HEART: No history of palpitations, chest pain or shortness of breath on exertion. LUNGS: Denies cough, hemoptysis, wheezing or shortness of breath. GASTROINTESTINAL: Denies changes in appetite, nausea, vomiting, diarrhea or constipation. GENITOURINARY: No history of frequency, urgency, hesitancy or nocturia. NEUROLOGIC: Denies history of numbness, tingling, or tremor. PSYCHIATRIC: No history of panic, anxiety or depression. ENDOCRINE: No history of heat or cold intolerance, polyuria or polydipsia. EXTREMITIES: Left leg pain and redness Vitals Vitals Vital Signs Date Time Temp Pulse Resp B/P (MAP) Pulse Ox O2 Delivery O2 Flow Rate FiO2 06/14/21 10:10 Nasal Cannula 2.0 06/14/21 09:33 93 06/14/21 09:28 83 112/67 06/14/21 07:00 98.1 20 98.1 Physical Exam Physical Exam General: Well developed, well nourished, no acute distress, well appearing HEENT: Pupils equally round and reactive to light, EOMI, no discharge, normal conjunctiva Neck: Supple, no nuchal rigidity, no JVD, trachea midline, no tenderness Cardiac: RRR, no murmurs, no gallops, no rubs Chest/Lungs: CTAB, no wheeze, no rhonchi, no crackles Abdomen: soft, non-distended, no guarding, no peritoneal signs, non-tender Back: No tenderness Extremities: Left lower extremity with swelling and erythema with multiple open wounds. Wounds are draining clear fluid. Tender to palpation Neuro: Alert and oriented x 4, no focal deficits, normal speech General: Alert, Oriented X3, Cooperative, No acute distress Heart: Regular rate, Normal S1, Normal S2 Lungs: Clear Abdomen: Soft Extremities: No cyanosis, Other ( swelling and erythema with multiple open wounds) Labs LABS PATIENT: MALINDA LOPEZ ACCOUNT: [id number] : 1950 LOCATION: ER AGE: 71 SEX: M EXAM STATUS: REG ER ORD. PHYSICIAN: SHANAE AKINS APRN REASON: LLE wound r/o osteo PROCEDURE: ANKLE LEFT 3V Exam Date: 03/28/2021 1:38 PM XR EXAM OF ANKLE_LEFT 3V Indication: Reason: LLE wound r/o osteo / Spl. Instructions: / History: . COMPARISON: December 27, 2019 FINDINGS/ IMPRESSION: There is diffuse soft tissue swelling. Ankle mortise is intact. Mild calcaneal enthesopathy is present. No osseous destructive changes are seen to confirm acute osteomyelitis, though sensitivity for osteomyelitis is limited on radiographs. No acute fracture or dislocation. Alignment and joint spaces are maintained. Electronically signed by: Arin Nowak MD (03/28/2021 2:10 PM) [facility] DICTATED and SIGNED BY: ARIN NOWAK MD DATE: 03/28/21 [id number] Laboratory Tests Test 06/13/21 12:35 06/13/21 12:55 06/13/21 16:37 06/13/21 20:51 White Blood Count 13.8 x10^3/uL (4.0-11.0) Red Blood Count 3.83 x10^6/uL (4.30-5.70) Hemoglobin 10.5 g/dL (13.0-17.5) Hematocrit 31.6 % (39.0-53.0) Mean Corpuscular Volume 83 fL (79-100) Mean Corpuscular Hemoglobin 28 pg (25-35) Mean Corpuscular Hemoglobin Concent 33 g/dL (31-37) Red Cell Distribution Width 17.5 % (11.5-14.5) Platelet Count 698 x10^3/uL (140-400) Neutrophils (%) (Auto) 78 % (31-73) Lymphocytes (%) (Auto) 11 % (24-48) Monocytes (%) (Auto) 9 % (0-9) Eosinophils (%) (Auto) 2 % (0-3) Basophils (%) (Auto) 1 % (0-3) Neutrophils # (Auto) 10.7 x10^3/uL (1.8-7.7) Lymphocytes # (Auto) 1.6 x10^3/uL (1.0-4.8) Monocytes # (Auto) 1.2 x10^3/uL (0.0-1.1) Eosinophils # (Auto) 0.3 x10^3/uL (0.0-0.7) Basophils # (Auto) 0.1 x10^3/uL (0.0-0.2) Sodium Level 133 mmol/L (136-145) Potassium Level 3.1 mmol/L (3.5-5.1) Chloride Level 93 mmol/L (98-107) Carbon Dioxide Level 29 mmol/L (21-32) Anion Gap 11 (6-14) Blood Urea Nitrogen 32 mg/dL (8-26) Creatinine 1.6 mg/dL (0.7-1.3) Estimated GFR (Cockcroft-Gault) 43.1 BUN/Creatinine Ratio 20 (6-20) Glucose Level 94 mg/dL (70-99) Calcium Level 9.3 mg/dL (8.5-10.1) Magnesium Level 1.7 mg/dL (1.8-2.4) Total Bilirubin 0.3 mg/dL (0.2-1.0) Aspartate Amino Transf (AST/SGOT) 14 U/L (15-37) Alanine Aminotransferase (ALT/SGPT) 21 U/L (16-63) Alkaline Phosphatase 70 U/L (46-116) Total Protein 8.6 g/dL (6.4-8.2) Albumin 2.9 g/dL (3.4-5.0) Albumin/Globulin Ratio 0.5 (1.0-1.7) SARS-CoV-2 RNA (LEYDI) Negative (Negative) SARS-CoV-2 Antigen (Rapid) Negative (NEGATIVE) Glucose (Fingerstick) 83 mg/dL (70-99) 124 mg/dL (70-99) Test 06/14/21 04:55 06/14/21 07:57 White Blood Count 15.0 x10^3/uL (4.0-11.0) Red Blood Count 3.37 x10^6/uL (4.30-5.70) Hemoglobin 9.3 g/dL (13.0-17.5) Hematocrit 27.6 % (39.0-53.0) Mean Corpuscular Volume 82 fL (79-100) Mean Corpuscular Hemoglobin 28 pg (25-35) Mean Corpuscular Hemoglobin Concent 34 g/dL (31-37) Red Cell Distribution Width 17.0 % (11.5-14.5) Platelet Count 610 x10^3/uL (140-400) Neutrophils (%) (Auto) 78 % (31-73) Lymphocytes (%) (Auto) 11 % (24-48) Monocytes (%) (Auto) 10 % (0-9) Eosinophils (%) (Auto) 1 % (0-3) Basophils (%) (Auto) 1 % (0-3) Neutrophils # (Auto) 11.7 x10^3/uL (1.8-7.7) Lymphocytes # (Auto) 1.7 x10^3/uL (1.0-4.8) Monocytes # (Auto) 1.5 x10^3/uL (0.0-1.1) Eosinophils # (Auto) 0.1 x10^3/uL (0.0-0.7) Basophils # (Auto) 0.1 x10^3/uL (0.0-0.2) Sodium Level 133 mmol/L (136-145) Potassium Level 2.6 mmol/L (3.5-5.1) Chloride Level 94 mmol/L (98-107) Carbon Dioxide Level 30 mmol/L (21-32) Anion Gap 9 (6-14) Blood Urea Nitrogen 26 mg/dL (8-26) Creatinine 1.4 mg/dL (0.7-1.3) Estimated GFR (Cockcroft-Gault) 50.2 Glucose Level 111 mg/dL (70-99) Calcium Level 8.9 mg/dL (8.5-10.1) Phosphorus Level 3.5 mg/dL (2.6-4.7) Magnesium Level 1.7 mg/dL (1.8-2.4) Glucose (Fingerstick) 107 mg/dL (70-99) Assessment and Plan Assessmemt and Plan Problems Medical Problems: (1) Left leg cellulitis Status: Acute Comment Review of Relevant I have reviewed the following items ashwini (where applicable) has been applied. Labs Laboratory Tests Test 06/13/21 12:35 06/13/21 12:55 06/13/21 16:37 06/13/21 20:51 White Blood Count 13.8 x10^3/uL (4.0-11.0) Red Blood Count 3.83 x10^6/uL (4.30-5.70) Hemoglobin 10.5 g/dL (13.0-17.5) Hematocrit 31.6 % (39.0-53.0) Mean Corpuscular Volume 83 fL (79-100) Mean Corpuscular Hemoglobin 28 pg (25-35) Mean Corpuscular Hemoglobin Concent 33 g/dL (31-37) Red Cell Distribution Width 17.5 % (11.5-14.5) Platelet Count 698 x10^3/uL (140-400) Neutrophils (%) (Auto) 78 % (31-73) Lymphocytes (%) (Auto) 11 % (24-48) Monocytes (%) (Auto) 9 % (0-9) Eosinophils (%) (Auto) 2 % (0-3) Basophils (%) (Auto) 1 % (0-3) Neutrophils # (Auto) 10.7 x10^3/uL (1.8-7.7) Lymphocytes # (Auto) 1.6 x10^3/uL (1.0-4.8) Monocytes # (Auto) 1.2 x10^3/uL (0.0-1.1) Eosinophils # (Auto) 0.3 x10^3/uL (0.0-0.7) Basophils # (Auto) 0.1 x10^3/uL (0.0-0.2) Sodium Level 133 mmol/L (136-145) Potassium Level 3.1 mmol/L (3.5-5.1) Chloride Level 93 mmol/L (98-107) Carbon Dioxide Level 29 mmol/L (21-32) Anion Gap 11 (6-14) Blood Urea Nitrogen 32 mg/dL (8-26) Creatinine 1.6 mg/dL (0.7-1.3) Estimated GFR (Cockcroft-Gault) 43.1 BUN/Creatinine Ratio 20 (6-20) Glucose Level 94 mg/dL (70-99) Calcium Level 9.3 mg/dL (8.5-10.1) Magnesium Level 1.7 mg/dL (1.8-2.4) Total Bilirubin 0.3 mg/dL (0.2-1.0) Aspartate Amino Transf (AST/SGOT) 14 U/L (15-37) Alanine Aminotransferase (ALT/SGPT) 21 U/L (16-63) Alkaline Phosphatase 70 U/L (46-116) Total Protein 8.6 g/dL (6.4-8.2) Albumin 2.9 g/dL (3.4-5.0) Albumin/Globulin Ratio 0.5 (1.0-1.7) SARS-CoV-2 RNA (LEYDI) Negative (Negative) SARS-CoV-2 Antigen (Rapid) Negative (NEGATIVE) Glucose (Fingerstick) 83 mg/dL (70-99) 124 mg/dL (70-99) Test 06/14/21 04:55 06/14/21 07:57 White Blood Count 15.0 x10^3/uL (4.0-11.0) Red Blood Count 3.37 x10^6/uL (4.30-5.70) Hemoglobin 9.3 g/dL (13.0-17.5) Hematocrit 27.6 % (39.0-53.0) Mean Corpuscular Volume 82 fL (79-100) Mean Corpuscular Hemoglobin 28 pg (25-35) Mean Corpuscular Hemoglobin Concent 34 g/dL (31-37) Red Cell Distribution Width 17.0 % (11.5-14.5) Platelet Count 610 x10^3/uL (140-400) Neutrophils (%) (Auto) 78 % (31-73) Lymphocytes (%) (Auto) 11 % (24-48) Monocytes (%) (Auto) 10 % (0-9) Eosinophils (%) (Auto) 1 % (0-3) Basophils (%) (Auto) 1 % (0-3) Neutrophils # (Auto) 11.7 x10^3/uL (1.8-7.7) Lymphocytes # (Auto) 1.7 x10^3/uL (1.0-4.8) Monocytes # (Auto) 1.5 x10^3/uL (0.0-1.1) Eosinophils # (Auto) 0.1 x10^3/uL (0.0-0.7) Basophils # (Auto) 0.1 x10^3/uL (0.0-0.2) Sodium Level 133 mmol/L (136-145) Potassium Level 2.6 mmol/L (3.5-5.1) Chloride Level 94 mmol/L (98-107) Carbon Dioxide Level 30 mmol/L (21-32) Anion Gap 9 (6-14) Blood Urea Nitrogen 26 mg/dL (8-26) Creatinine 1.4 mg/dL (0.7-1.3) Estimated GFR (Cockcroft-Gault) 50.2 Glucose Level 111 mg/dL (70-99) Calcium Level 8.9 mg/dL (8.5-10.1) Phosphorus Level 3.5 mg/dL (2.6-4.7) Magnesium Level 1.7 mg/dL (1.8-2.4) Glucose (Fingerstick) 107 mg/dL (70-99) Laboratory Tests Test 06/13/21 12:35 06/13/21 12:55 06/13/21 16:37 06/13/21 20:51 White Blood Count 13.8 x10^3/uL (4.0-11.0) Red Blood Count 3.83 x10^6/uL (4.30-5.70) Hemoglobin 10.5 g/dL (13.0-17.5) Hematocrit 31.6 % (39.0-53.0) Mean Corpuscular Volume 83 fL (79-100) Mean Corpuscular Hemoglobin 28 pg (25-35) Mean Corpuscular Hemoglobin Concent 33 g/dL (31-37) Red Cell Distribution Width 17.5 % (11.5-14.5) Platelet Count 698 x10^3/uL (140-400) Neutrophils (%) (Auto) 78 % (31-73) Lymphocytes (%) (Auto) 11 % (24-48) Monocytes (%) (Auto) 9 % (0-9) Eosinophils (%) (Auto) 2 % (0-3) Basophils (%) (Auto) 1 % (0-3) Neutrophils # (Auto) 10.7 x10^3/uL (1.8-7.7) Lymphocytes # (Auto) 1.6 x10^3/uL (1.0-4.8) Monocytes # (Auto) 1.2 x10^3/uL (0.0-1.1) Eosinophils # (Auto) 0.3 x10^3/uL (0.0-0.7) Basophils # (Auto) 0.1 x10^3/uL (0.0-0.2) Sodium Level 133 mmol/L (136-145) Potassium Level 3.1 mmol/L (3.5-5.1) Chloride Level 93 mmol/L (98-107) Carbon Dioxide Level 29 mmol/L (21-32) Anion Gap 11 (6-14) Blood Urea Nitrogen 32 mg/dL (8-26) Creatinine 1.6 mg/dL (0.7-1.3) Estimated GFR (Cockcroft-Gault) 43.1 BUN/Creatinine Ratio 20 (6-20) Glucose Level 94 mg/dL (70-99) Calcium Level 9.3 mg/dL (8.5-10.1) Magnesium Level 1.7 mg/dL (1.8-2.4) Total Bilirubin 0.3 mg/dL (0.2-1.0) Aspartate Amino Transf (AST/SGOT) 14 U/L (15-37) Alanine Aminotransferase (ALT/SGPT) 21 U/L (16-63) Alkaline Phosphatase 70 U/L (46-116) Total Protein 8.6 g/dL (6.4-8.2) Albumin 2.9 g/dL (3.4-5.0) Albumin/Globulin Ratio 0.5 (1.0-1.7) SARS-CoV-2 RNA (LEYDI) Negative (Negative) SARS-CoV-2 Antigen (Rapid) Negative (NEGATIVE) Glucose (Fingerstick) 83 mg/dL (70-99) 124 mg/dL (70-99) Test 06/14/21 04:55 06/14/21 07:57 White Blood Count 15.0 x10^3/uL (4.0-11.0) Red Blood Count 3.37 x10^6/uL (4.30-5.70) Hemoglobin 9.3 g/dL (13.0-17.5) Hematocrit 27.6 % (39.0-53.0) Mean Corpuscular Volume 82 fL (79-100) Mean Corpuscular Hemoglobin 28 pg (25-35) Mean Corpuscular Hemoglobin Concent 34 g/dL (31-37) Red Cell Distribution Width 17.0 % (11.5-14.5) Platelet Count 610 x10^3/uL (140-400) Neutrophils (%) (Auto) 78 % (31-73) Lymphocytes (%) (Auto) 11 % (24-48) Monocytes (%) (Auto) 10 % (0-9) Eosinophils (%) (Auto) 1 % (0-3) Basophils (%) (Auto) 1 % (0-3) Neutrophils # (Auto) 11.7 x10^3/uL (1.8-7.7) Lymphocytes # (Auto) 1.7 x10^3/uL (1.0-4.8) Monocytes # (Auto) 1.5 x10^3/uL (0.0-1.1) Eosinophils # (Auto) 0.1 x10^3/uL (0.0-0.7) Basophils # (Auto) 0.1 x10^3/uL (0.0-0.2) Sodium Level 133 mmol/L (136-145) Potassium Level 2.6 mmol/L (3.5-5.1) Chloride Level 94 mmol/L (98-107) Carbon Dioxide Level 30 mmol/L (21-32) Anion Gap 9 (6-14) Blood Urea Nitrogen 26 mg/dL (8-26) Creatinine 1.4 mg/dL (0.7-1.3) Estimated GFR (Cockcroft-Gault) 50.2 Glucose Level 111 mg/dL (70-99) Calcium Level 8.9 mg/dL (8.5-10.1) Phosphorus Level 3.5 mg/dL (2.6-4.7) Magnesium Level 1.7 mg/dL (1.8-2.4) Glucose (Fingerstick) 107 mg/dL (70-99) Medications Current Medications Morphine Sulfate (Morphine Sulfate) 4 mg 1X ONCE IVP Last administered on 06/13/21at 12:50; Start 06/13/21 at 12:30; Stop 06/13/21 at 12:31; Status DC Piperacillin Sod/ Tazobactam Sod (Zosyn Per Pharmacy) 1 each PRN DAILY PRN MC SEE COMMENTS; Start 06/13/21 at 12:45 Piperacillin Sod/ Tazobactam Sod 3.375 gm/Sodium Chloride 50 ml @ 100 mls/hr 1X ONCE IV Last administered on 06/13/21at 12:50; Start 06/13/21 at 12:45; Stop 06/13/21 at 13:14; Status DC Morphine Sulfate (Morphine Sulfate) 4 mg PRN Q2HR PRN IVP PAIN Last administered on 06/14/21at 10:10; Start 06/13/21 at 12:45; Stop 06/14/21 at 12:44 Hydromorphone HCl (Dilaudid) 2 mg 1X ONCE IVP Last administered on 06/13/21at 13:21; Start 06/13/21 at 13:15; Stop 06/13/21 at 13:16; Status DC Amiodarone HCl (Cordarone) 200 mg DAILY PO Last administered on 06/14/21 09:27; Start 06/14/21 at 09:00 Apixaban (Eliquis) 5 mg BID PO Last administered on 06/14/21at 09:24; Start 06/13/21 at 21:00 Aspirin (Ecotrin) 81 mg DAILY PO Last administered on 06/14/21at 09:24; Start 06/14/21 at 09:00 Atorvastatin Calcium (Lipitor) 40 mg HS PO Last administered on 06/13/21at 20:49; Start 06/13/21 at 21:00 Diltiazem HCl (Cardizem 24hr Cd) 240 mg DAILY PO Last administered on 06/14/21at 09:28; Start 06/14/21 at 09:00 Duloxetine HCl (Cymbalta) 30 mg DAILY PO Last administered on 06/14/21at 09:26; Start 06/14/21 at 09:00 Famotidine (Pepcid) 20 mg BID PO Last administered on 06/14/21at 09:26; Start 06/13/21 at 21:00 Fenofibrate (Lofibra) 134 mg DAILY PO Last administered on 06/14/21at 09:26; Start 06/14/21 at 09:00 Furosemide (Lasix) 40 mg BID94 PO ; Start 06/13/21 at 16:00; Stop 06/13/21 at 15:18; Status DC Gabapentin (Neurontin) 300 mg TID PO Last administered on 06/14/21at 09:27; Start 06/13/21 at 14:00 Acetaminophen/ Hydrocodone Bitart (Lortab 7.5/325) 1 tab PRN Q6HRS PRN PO PAIN Last administered on 06/14/21at 09:25; Start 06/13/21 at 13:15 Linezolid (Zyvox) 600 mg BID PO Last administered on 06/14/21at 09:27; Start 06/13/21 at 21:00 Methocarbamol (Robaxin) 500 mg TID PRN PRN PO PAIN Last administered on 06/14/21at 09:26; Start 06/13/21 at 13:45 Metoprolol Tartrate (Lopressor) 25 mg BID PO Last administered on 06/14/21at 09:00; Start 06/13/21 at 21:00 Polyethylene Glycol (miraLAX PACKET) 17 gm PRN DAILY PRN PO CONSTIPATION, 1ST CHOICE; Start 06/13/21 at 13:15 Insulin Human Lispro (HumaLOG) 15 units TIDWMEALS SQ Last administered on 06/14/21at 09:33; Start 06/13/21 at 17:00 Sennosides (Senna) 17.2 mg PRN BID PRN PO CONSTIPATION, 2ND CHOICE; Start 06/13/21 at 13:15 Docusate Sodium (Colace) 100 mg PRN DAILY PRN PO HARD STOOLS; Start 06/13/21 at 13:15 Ondansetron HCl (Zofran) 4 mg PRN Q6HRS PRN IVP NAUSEA/VOMITING; Start 06/13/21 at 13:15 Insulin Human Lispro (HumaLOG) 0-7 UNITS TIDWMEALS SQ ; Start 06/13/21 at 17:00 Dextrose (Dextrose 50%-Water Syringe) 12.5 gm PRN Q15MIN PRN IV SEE COMMENTS; Start 06/13/21 at 13:15 Acetaminophen (Tylenol) 650 mg PRN Q4HRS PRN PO TEMP OVER 100.4F OR MILD PAIN; Start 06/13/21 at 13:15 Morphine Sulfate (Morphine Sulfate) 1 mg PRN Q1HR PRN IV PAIN; Start 06/13/21 at 13:15 Morphine Sulfate (Morphine Sulfate) 2 mg PRN Q2HR PRN IVP SEVERE PAIN 7-10 Last administered on 06/13/21at 19:20; Start 06/13/21 at 13:15; Stop 06/14/21 at 13:14 Prochlorperazine Edisylate (Compazine) 10 mg PRN Q6HRS PRN IV NAUSEA/VOMITING, 2ND CHOICE; Start 06/13/21 at 13:15 Piperacillin Sod/ Tazobactam Sod 3.375 gm/Sodium Chloride 50 ml @ 100 mls/hr Q6HRS IV Last administered on 06/14/21at 06:18; Start 06/13/21 at 18:00 Furosemide (Lasix) 40 mg 1X ONCE IVP Last administered on 06/13/21at 15:48; Start 06/13/21 at 15:30; Stop 06/13/21 at 15:31; Status DC Potassium Chloride (Klor-Con) 40 meq TIDWMEALS PO Last administered on 06/14/21at 09:25; Start 06/14/21 at 08:00 Magnesium Sulfate 50 ml @ 25 mls/hr 1X ONCE IV Last administered on 06/14/21at 06:40; Start 06/14/21 at 07:00; Stop 06/14/21 at 08:59; Status DC Active Scripts Active [Oxygen] 2 L DEJUAN CONT PRN Zyvox (Linezolid) 600 Mg Tablet 600 Mg PO BID 10 Days for two weeks. Started 04/01/21. Hydrocodone-Apap 7.5-325 (Hydrocodone Bit/Acetaminophen) 1 Tab Tablet 1 Tab PO PRN Q6HRS PRN 14 Days .. Polyethylene Glycol 3350 17 Gm Powd.pack 17 Gm PO PRN DAILY PRN 30 Days Klor-Con M20 (Potassium Chloride) 20 Meq Tab.er.prt 1 Tab PO DAILY 30 Days Metoprolol Tartrate 25 Mg Tablet 1 Tab PO BID Metformin Hcl 500 Mg Tablet 500 Mg PO BIDWMEALS 30 Days Eliquis (Apixaban) 5 Mg Tablet 5 Mg PO BID 30 Days Reported Diltiazem 24Hr Cd (Diltiazem HCl) 240 Mg Cap.er.24h 1 Cap PO DAILY Keflex (Cephalexin) 500 Mg Capsule 1 Cap PO QID Furosemide 40 Mg Tablet 1 Tab PO BID Duloxetine Hcl 30 Mg Capsule.dr 1 Cap PO DAILY 90 Days Gabapentin 300 Mg Capsule 1 Cap PO TID 90 Days Famotidine 20 Mg Tablet 20 Mg PO BID Novolog Flexpen (Insulin Aspart) 100 Unit/1 Ml Insuln.pen 15 Unit SQ TIDBFRMEAL Robaxin-750 (Methocarbamol) 750 Mg Tablet 500 Mg PO TID PRN PRN Aspir 81 (Aspirin) 81 Mg Tablet.dr 81 Mg PO DAILY Fenofibrate (Fenofibrate,Micronized) 134 Mg Capsule 134 Mg PO DAILY Atorvastatin Calcium 40 Mg Tablet 40 Mg PO HS Amiodarone Hcl 200 Mg Tablet 200 Mg PO DAILY Vitals/I & O Vital Sign - Last 24 Hours 06/13/21 06/13/21 06/13/21 06/13/21 12:00 12:02 12:50 12:56 Temp 98.5 98.5 Pulse 86 85 80 Resp 20 22 B/P (MAP) 139/73 (95) 139/73 (95) 136/67 (90) Pulse Ox 96 94 98 94 O2 Delivery Room Air Room Air Room Air Room Air 06/13/21 06/13/21 06/13/21 06/13/21 13:02 13:21 13:32 15:47 Pulse 81 79 Resp 24 B/P (MAP) 156/87 (110) 141/69 (93) Pulse Ox 94 96 94 O2 Delivery Room Air Room Air Room Air Room Air 06/13/21 06/13/21 06/13/21 06/13/21 16:36 16:39 17:38 18:17 O2 Delivery Room Air Room Air Room Air Room Air 06/13/21 06/13/21 06/13/21 06/13/21 19:20 19:40 19:50 20:00 Temp 98.4 98.4 Pulse 109 Resp 24 22 20 B/P (MAP) 102/62 (75) Pulse Ox 94 91 94 O2 Delivery Room Air Room Air Room Air Room Air 06/13/21 06/13/21 06/13/21 06/13/21 20:49 21:42 22:12 23:32 Temp 98.7 98.7 Pulse 109 65 Resp 24 18 B/P (MAP) 102/62 107/47 (67) Pulse Ox 94 90 90 O2 Delivery Room Air Room Air Room Air 06/14/21 06/14/21 06/14/21 06/14/21 02:08 02:38 02:58 03:21 Temp 98.0 98.0 Pulse 88 Resp 18 20 22 B/P (MAP) 124/54 (77) Pulse Ox 90 93 90 93 O2 Delivery Room Air Room Air Room Air Nasal Cannula O2 Flow Rate 2.0 2.0 06/14/21 06/14/21 06/14/21 06/14/21 03:28 07:00 08:00 09:00 Temp 98.1 98.1 Pulse 83 83 Resp 20 B/P (MAP) 112/67 (82) 112/67 Pulse Ox 93 92 93 O2 Delivery Room Air Room Air Room Air O2 Flow Rate 2.0 2.0 06/14/21 06/14/21 06/14/21 06/14/21 09:27 09:28 09:33 10:10 Pulse 83 83 B/P (MAP) 112/67 112/67 Pulse Ox 93 O2 Delivery Room Air Nasal Cannula O2 Flow Rate 2.0 2.0 Intake and Output 06/13/21 06/13/21 06/14/21 15:00 23:00 07:00 Intake Total 500 ml Output Total 750 ml Balance -250 ml Justicifation of Admission Dx: Justifications for Admission: Justification of Admission Dx: Yes CHF: Hemodynamic Instability Comminuty Aquired Pneumonia: Hypoxemia MAKENZIE TANG MD Jun 14, 2021 10:24
--- NOTE | 2021-06-14 10:56 | PDOC2 ---
CONSULT Date of Consult Date of Consult DATE: 06/14/21 TIME: 10:48 Reason for Consult Reason for Consult: LLE CELLULITIS ABX MANAGEMENT Referring Physician Referring Physician: DR ALCANTAR Identification/Chief Complaint Chief Complaint Infectious disease consultation Lower extremity cellulitis Source Source: Chart review, Patient History of Present Illness Reason for Visit: 71 year old male who was brought here by EMS from home due to left leg wound and pain. Patient has chronic venous stasis and lymphedema. He was last hospitalized here in March and was discharged to senior living. He was discharged home about a month ago. For the last 3 days prior to admission he started having more redness pain and blisters with drainage. Patient denies any fever chills nausea vomiting diarrhea abdominal pain. Patient was started on IV Zosyn and Zyvox. ID consultation has been requested for antibiotic management. Past Medical History Cardiovascular: AFIB, CAD, CHF, HTN, Hyperlipidemia, Other Pulmonary: No pertinent hx GI: No pertinent hx Psych: No pertinent hx Musculoskeletal: low back pain, Osteoarthritis Renal/: Chronic renal insuff, Benign prostatic enlarg., Other Endocrine: No pertinent hx Past Surgical History Past Surgical History: Pacemaker, Arthroscopy, Cholecystectomy, Hernia Repair, Other Family History Family History: Heart Disease Social History ALCOHOL: none Drugs: None Lives: with Family Current Problem List Problem List Problems Medical Problems: (1) Left leg cellulitis Status: Acute Current Medications Current Medications Current Medications Morphine Sulfate (Morphine Sulfate) 4 mg 1X ONCE IVP Last administered on 06/13/21at 12:50; Start 06/13/21 at 12:30; Stop 06/13/21 at 12:31; Status DC Piperacillin Sod/ Tazobactam Sod (Zosyn Per Pharmacy) 1 each PRN DAILY PRN MC SEE COMMENTS; Start 06/13/21 at 12:45 Piperacillin Sod/ Tazobactam Sod 3.375 gm/Sodium Chloride 50 ml @ 100 mls/hr 1X ONCE IV Last administered on 06/13/21at 12:50; Start 06/13/21 at 12:45; Stop 06/13/21 at 13:14; Status DC Morphine Sulfate (Morphine Sulfate) 4 mg PRN Q2HR PRN IVP PAIN Last administered on 06/14/21at 10:10; Start 06/13/21 at 12:45; Stop 06/14/21 at 12:44 Hydromorphone HCl (Dilaudid) 2 mg 1X ONCE IVP Last administered on 06/13/21at 13:21; Start 06/13/21 at 13:15; Stop 06/13/21 at 13:16; Status DC Amiodarone HCl (Cordarone) 200 mg DAILY PO Last administered on 06/14/21 09:27; Start 06/14/21 at 09:00 Apixaban (Eliquis) 5 mg BID PO Last administered on 06/14/21at 09:24; Start at 21:00 Aspirin (Ecotrin) 81 mg DAILY PO Last administered on 06/14/21 09:24; Start 06/14/21 at 09:00 Atorvastatin Calcium (Lipitor) 40 mg HS PO Last administered on 06/13/21at 20:49; Start 06/13/21 at 21:00 Diltiazem HCl (Cardizem 24hr Cd) 240 mg DAILY PO Last administered on 06/14/21at 09:28; Start 06/14/21 at 09:00 Duloxetine HCl (Cymbalta) 30 mg DAILY PO Last administered on 06/14/21at 09:26; Start 06/14/21 at 09:00 Famotidine (Pepcid) 20 mg BID PO Last administered on 06/14/21 09:26; Start 06/13/21 at 21:00 Fenofibrate (Lofibra) 134 mg DAILY PO Last administered on 06/14/21at 09:26; Start 06/14/21 at 09:00 Furosemide (Lasix) 40 mg BID94 PO ; Start 06/13/21 at 16:00; Stop 06/13/21 at 15:18; Status DC Gabapentin (Neurontin) 300 mg TID PO Last administered on 06/14/21 09:27; Start 06/13/21 at 14:00 Acetaminophen/ Hydrocodone Bitart (Lortab 7.5/325) 1 tab PRN Q6HRS PRN PO PAIN Last administered on 06/14/21 09:25; Start 06/13/21 at 13:15 Linezolid (Zyvox) 600 mg BID PO Last administered on 06/14/21 09:27; Start 06/13/21 at 21:00 Methocarbamol (Robaxin) 500 mg TID PRN PRN PO PAIN Last administered on 06/14/21at 09:26; Start 06/13/21 at 13:45 Metoprolol Tartrate (Lopressor) 25 mg BID PO Last administered on 06/14/21at 09:00; Start 06/13/21 at 21:00 Polyethylene Glycol (miraLAX PACKET) 17 gm PRN DAILY PRN PO CONSTIPATION, 1ST CHOICE; Start 06/13/21 at 13:15 Insulin Human Lispro (HumaLOG) 15 units TIDWMEALS SQ Last administered on 06/14/21at 09:33; Start 06/13/21 at 17:00 Sennosides (Senna) 17.2 mg PRN BID PRN PO CONSTIPATION, 2ND CHOICE; Start 06/13/21 at 13:15 Docusate Sodium (Colace) 100 mg PRN DAILY PRN PO HARD STOOLS; Start 06/13/21 at 13:15 Ondansetron HCl (Zofran) 4 mg PRN Q6HRS PRN IVP NAUSEA/VOMITING; Start 06/13/21 at 13:15 Insulin Human Lispro (HumaLOG) 0-7 UNITS TIDWMEALS SQ ; Start 06/13/21 at 17:00 Dextrose (Dextrose 50%-Water Syringe) 12.5 gm PRN Q15MIN PRN IV SEE COMMENTS; Start 06/13/21 at 13:15 Acetaminophen (Tylenol) 650 mg PRN Q4HRS PRN PO TEMP OVER 100.4F OR MILD PAIN; Start 06/13/21 at 13:15 Morphine Sulfate (Morphine Sulfate) 1 mg PRN Q1HR PRN IV PAIN; Start 06/13/21 at 13:15 Morphine Sulfate (Morphine Sulfate) 2 mg PRN Q2HR PRN IVP SEVERE PAIN 7-10 Last administered on 06/13/21at 19:20; Start 06/13/21 at 13:15; Stop 06/14/21 at 13:14 Prochlorperazine Edisylate (Compazine) 10 mg PRN Q6HRS PRN IV NAUSEA/VOMITING, 2ND CHOICE; Start 06/13/21 at 13:15 Piperacillin Sod/ Tazobactam Sod 3.375 gm/Sodium Chloride 50 ml @ 100 mls/hr Q6HRS IV Last administered on 06/14/21at 06:18; Start 06/13/21 at 18:00 Furosemide (Lasix) 40 mg 1X ONCE IVP Last administered on 06/13/21at 15:48; Start 06/13/21 at 15:30; Stop 06/13/21 at 15:31; Status DC Potassium Chloride (Klor-Con) 40 meq TIDWMEALS PO Last administered on 06/14/21at 09:25; Start 06/14/21 at 08:00 Magnesium Sulfate 50 ml @ 25 mls/hr 1X ONCE IV Last administered on 06/14/21at 06:40; Start 06/14/21 at 07:00; Stop 06/14/21 at 08:59; Status DC Potassium Chloride (Klor-Con) 40 meq 1X ONCE PO ; Start 06/14/21 at 11:15; Stop 06/14/21 at 11:16 Active Scripts Active [Oxygen] 2 L DEJUAN CONT PRN Zyvox (Linezolid) 600 Mg Tablet 600 Mg PO BID 10 Days for two weeks. Started 04/01/21. Hydrocodone-Apap 7.5-325 (Hydrocodone Bit/Acetaminophen) 1 Tab Tablet 1 Tab PO PRN Q6HRS PRN 14 Days .. Polyethylene Glycol 3350 17 Gm Powd.pack 17 Gm PO PRN DAILY PRN 30 Days Klor-Con M20 (Potassium Chloride) 20 Meq Tab.er.prt 1 Tab PO DAILY 30 Days Metoprolol Tartrate 25 Mg Tablet 1 Tab PO BID Metformin Hcl 500 Mg Tablet 500 Mg PO BIDWMEALS 30 Days Eliquis (Apixaban) 5 Mg Tablet 5 Mg PO BID 30 Days Reported Diltiazem 24Hr Cd (Diltiazem HCl) 240 Mg Cap.er.24h 1 Cap PO DAILY Keflex (Cephalexin) 500 Mg Capsule 1 Cap PO QID Furosemide 40 Mg Tablet 1 Tab PO BID Duloxetine Hcl 30 Mg Capsule.dr 1 Cap PO DAILY 90 Days Gabapentin 300 Mg Capsule 1 Cap PO TID 90 Days Famotidine 20 Mg Tablet 20 Mg PO BID Novolog Flexpen (Insulin Aspart) 100 Unit/1 Ml Insuln.pen 15 Unit SQ TIDBFRMEAL Robaxin-750 (Methocarbamol) 750 Mg Tablet 500 Mg PO TID PRN PRN Aspir 81 (Aspirin) 81 Mg Tablet.dr 81 Mg PO DAILY Fenofibrate (Fenofibrate,Micronized) 134 Mg Capsule 134 Mg PO DAILY Atorvastatin Calcium 40 Mg Tablet 40 Mg PO HS Amiodarone Hcl 200 Mg Tablet 200 Mg PO DAILY Allergies Allergies: Coded Allergies: vancomycin (Verified Allergy, Severe, Rash AND SOA, 11/23/19) I S O L A T I O N *CONTACT* (Verified Allergy, Unknown, 12/29/19) ESBL ROS Review of System Denies fever, nausea, vomiting, shortness of breath, diarrhea, abdominal pain, rash Except for above Physical Exam Physical Exam GENERAL: Alert, oriented x 3, lying in bed complains of pain in the leg and back LAtter is chronic HEENT: Normocephalic, atraumatic. Anicteric. NECK: Supple. LUNGS: Clear bilaterally. No wheezing. HEART: S1, S2. ABDOMEN: Obese, soft, nontender, nondistended. No rebound or guarding. EXTREMITIES: Bilateral lower extremity lymphedema, venous stasis, redness with hyperpigmentation and chronic changes both lower extremities Left lower extremity redness warmth tenderness more than the right, few open wounds, no loss purulence MUSCULOSKELETAL: No joint swelling. No decrease in range of motion. CENTRAL NERVOUS SYSTEM: Alert, oriented x 3, grossly nonfocal. PSYCHIATRIC: Cooperative, calm. LINES: looks clean. Vitals VITALS Vital Signs Date Time Temp Pulse Resp B/P (MAP) Pulse Ox O2 Delivery O2 Flow Rate FiO2 06/14/21 10:10 Nasal Cannula 2.0 06/14/21 09:33 93 06/14/21 09:28 83 112/67 06/14/21 07:00 98.1 20 98.1 Labs Labs Laboratory Tests Test 06/13/21 12:35 06/13/21 12:55 06/13/21 16:37 06/13/21 20:51 White Blood Count 13.8 x10^3/uL (4.0-11.0) Red Blood Count 3.83 x10^6/uL (4.30-5.70) Hemoglobin 10.5 g/dL (13.0-17.5) Hematocrit 31.6 % (39.0-53.0) Mean Corpuscular Volume 83 fL (79-100) Mean Corpuscular Hemoglobin 28 pg (25-35) Mean Corpuscular Hemoglobin Concent 33 g/dL (31-37) Red Cell Distribution Width 17.5 % (11.5-14.5) Platelet Count 698 x10^3/uL (140-400) Neutrophils (%) (Auto) 78 % (31-73) Lymphocytes (%) (Auto) 11 % (24-48) Monocytes (%) (Auto) 9 % (0-9) Eosinophils (%) (Auto) 2 % (0-3) Basophils (%) (Auto) 1 % (0-3) Neutrophils # (Auto) 10.7 x10^3/uL (1.8-7.7) Lymphocytes # (Auto) 1.6 x10^3/uL (1.0-4.8) Monocytes # (Auto) 1.2 x10^3/uL (0.0-1.1) Eosinophils # (Auto) 0.3 x10^3/uL (0.0-0.7) Basophils # (Auto) 0.1 x10^3/uL (0.0-0.2) Sodium Level 133 mmol/L (136-145) Potassium Level 3.1 mmol/L (3.5-5.1) Chloride Level 93 mmol/L (98-107) Carbon Dioxide Level 29 mmol/L (21-32) Anion Gap 11 (6-14) Blood Urea Nitrogen 32 mg/dL (8-26) Creatinine 1.6 mg/dL (0.7-1.3) Estimated GFR (Cockcroft-Gault) 43.1 BUN/Creatinine Ratio 20 (6-20) Glucose Level 94 mg/dL (70-99) Calcium Level 9.3 mg/dL (8.5-10.1) Magnesium Level 1.7 mg/dL (1.8-2.4) Total Bilirubin 0.3 mg/dL (0.2-1.0) Aspartate Amino Transf (AST/SGOT) 14 U/L (15-37) Alanine Aminotransferase (ALT/SGPT) 21 U/L (16-63) Alkaline Phosphatase 70 U/L (46-116) Total Protein 8.6 g/dL (6.4-8.2) Albumin 2.9 g/dL (3.4-5.0) Albumin/Globulin Ratio 0.5 (1.0-1.7) SARS-CoV-2 RNA (LEYDI) Negative (Negative) SARS-CoV-2 Antigen (Rapid) Negative (NEGATIVE) Glucose (Fingerstick) 83 mg/dL (70-99) 124 mg/dL (70-99) Test 06/14/21 04:55 06/14/21 07:57 White Blood Count 15.0 x10^3/uL (4.0-11.0) Red Blood Count 3.37 x10^6/uL (4.30-5.70) Hemoglobin 9.3 g/dL (13.0-17.5) Hematocrit 27.6 % (39.0-53.0) Mean Corpuscular Volume 82 fL (79-100) Mean Corpuscular Hemoglobin 28 pg (25-35) Mean Corpuscular Hemoglobin Concent 34 g/dL (31-37) Red Cell Distribution Width 17.0 % (11.5-14.5) Platelet Count 610 x10^3/uL (140-400) Neutrophils (%) (Auto) 78 % (31-73) Lymphocytes (%) (Auto) 11 % (24-48) Monocytes (%) (Auto) 10 % (0-9) Eosinophils (%) (Auto) 1 % (0-3) Basophils (%) (Auto) 1 % (0-3) Neutrophils # (Auto) 11.7 x10^3/uL (1.8-7.7) Lymphocytes # (Auto) 1.7 x10^3/uL (1.0-4.8) Monocytes # (Auto) 1.5 x10^3/uL (0.0-1.1) Eosinophils # (Auto) 0.1 x10^3/uL (0.0-0.7) Basophils # (Auto) 0.1 x10^3/uL (0.0-0.2) Sodium Level 133 mmol/L (136-145) Potassium Level 2.6 mmol/L (3.5-5.1) Chloride Level 94 mmol/L (98-107) Carbon Dioxide Level 30 mmol/L (21-32) Anion Gap 9 (6-14) Blood Urea Nitrogen 26 mg/dL (8-26) Creatinine 1.4 mg/dL (0.7-1.3) Estimated GFR (Cockcroft-Gault) 50.2 Glucose Level 111 mg/dL (70-99) Calcium Level 8.9 mg/dL (8.5-10.1) Phosphorus Level 3.5 mg/dL (2.6-4.7) Magnesium Level 1.7 mg/dL (1.8-2.4) Glucose (Fingerstick) 107 mg/dL (70-99) Laboratory Tests Test 06/13/21 12:35 06/13/21 12:55 06/13/21 16:37 06/13/21 20:51 White Blood Count 13.8 x10^3/uL (4.0-11.0) Red Blood Count 3.83 x10^6/uL (4.30-5.70) Hemoglobin 10.5 g/dL (13.0-17.5) Hematocrit 31.6 % (39.0-53.0) Mean Corpuscular Volume 83 fL (79-100) Mean Corpuscular Hemoglobin 28 pg (25-35) Mean Corpuscular Hemoglobin Concent 33 g/dL (31-37) Red Cell Distribution Width 17.5 % (11.5-14.5) Platelet Count 698 x10^3/uL (140-400) Neutrophils (%) (Auto) 78 % (31-73) Lymphocytes (%) (Auto) 11 % (24-48) Monocytes (%) (Auto) 9 % (0-9) Eosinophils (%) (Auto) 2 % (0-3) Basophils (%) (Auto) 1 % (0-3) Neutrophils # (Auto) 10.7 x10^3/uL (1.8-7.7) Lymphocytes # (Auto) 1.6 x10^3/uL (1.0-4.8) Monocytes # (Auto) 1.2 x10^3/uL (0.0-1.1) Eosinophils # (Auto) 0.3 x10^3/uL (0.0-0.7) Basophils # (Auto) 0.1 x10^3/uL (0.0-0.2) Sodium Level 133 mmol/L (136-145) Potassium Level 3.1 mmol/L (3.5-5.1) Chloride Level 93 mmol/L (98-107) Carbon Dioxide Level 29 mmol/L (21-32) Anion Gap 11 (6-14) Blood Urea Nitrogen 32 mg/dL (8-26) Creatinine 1.6 mg/dL (0.7-1.3) Estimated GFR (Cockcroft-Gault) 43.1 BUN/Creatinine Ratio 20 (6-20) Glucose Level 94 mg/dL (70-99) Calcium Level 9.3 mg/dL (8.5-10.1) Magnesium Level 1.7 mg/dL (1.8-2.4) Total Bilirubin 0.3 mg/dL (0.2-1.0) Aspartate Amino Transf (AST/SGOT) 14 U/L (15-37) Alanine Aminotransferase (ALT/SGPT) 21 U/L (16-63) Alkaline Phosphatase 70 U/L (46-116) Total Protein 8.6 g/dL (6.4-8.2) Albumin 2.9 g/dL (3.4-5.0) Albumin/Globulin Ratio 0.5 (1.0-1.7) SARS-CoV-2 RNA (LEYDI) Negative (Negative) SARS-CoV-2 Antigen (Rapid) Negative (NEGATIVE) Glucose (Fingerstick) 83 mg/dL (70-99) 124 mg/dL (70-99) Test 06/14/21 04:55 06/14/21 07:57 White Blood Count 15.0 x10^3/uL (4.0-11.0) Red Blood Count 3.37 x10^6/uL (4.30-5.70) Hemoglobin 9.3 g/dL (13.0-17.5) Hematocrit 27.6 % (39.0-53.0) Mean Corpuscular Volume 82 fL (79-100) Mean Corpuscular Hemoglobin 28 pg (25-35) Mean Corpuscular Hemoglobin Concent 34 g/dL (31-37) Red Cell Distribution Width 17.0 % (11.5-14.5) Platelet Count 610 x10^3/uL (140-400) Neutrophils (%) (Auto) 78 % (31-73) Lymphocytes (%) (Auto) 11 % (24-48) Monocytes (%) (Auto) 10 % (0-9) Eosinophils (%) (Auto) 1 % (0-3) Basophils (%) (Auto) 1 % (0-3) Neutrophils # (Auto) 11.7 x10^3/uL (1.8-7.7) Lymphocytes # (Auto) 1.7 x10^3/uL (1.0-4.8) Monocytes # (Auto) 1.5 x10^3/uL (0.0-1.1) Eosinophils # (Auto) 0.1 x10^3/uL (0.0-0.7) Basophils # (Auto) 0.1 x10^3/uL (0.0-0.2) Sodium Level 133 mmol/L (136-145) Potassium Level 2.6 mmol/L (3.5-5.1) Chloride Level 94 mmol/L (98-107) Carbon Dioxide Level 30 mmol/L (21-32) Anion Gap 9 (6-14) Blood Urea Nitrogen 26 mg/dL (8-26) Creatinine 1.4 mg/dL (0.7-1.3) Estimated GFR (Cockcroft-Gault) 50.2 Glucose Level 111 mg/dL (70-99) Calcium Level 8.9 mg/dL (8.5-10.1) Phosphorus Level 3.5 mg/dL (2.6-4.7) Magnesium Level 1.7 mg/dL (1.8-2.4) Glucose (Fingerstick) 107 mg/dL (70-99) Assessment/Plan Assessment/Plan 1. Left lower extremity cellulitis with underlying chronic venous insufficiency. 2. Bilateral lower extremity venous insufficiency. 3. Morbid obesity. 4. Diabetes. 5. Leukocytosis. 6. Congestive heart failure, chronic. RECOMMENDATIONS: Continue Zosyn and Zyvox Elevate left lower extremity. The patient states he cannot comply with the same. Encouraged to do it as much as possible to help with edema control. Local wound care Monitor labs and cultures .Discussed with ALDA ARREOLA MD Jun 14, 2021 10:56
[2021-06-14 11:00] VITALS: BP 143/68
[2021-06-14] MEDS ORDERED: POTASSIUM CHLORIDE 20 MEQ TABLET.ER. PO ONE (11:15)
--- NOTE | 2021-06-14 12:49 | RAD ---
EXAM: XR CHEST 1V 06/14/2021 10:31 AM CLINICAL INDICATION: Hypoxia COMPARISON: Chest radiograph 10/17/2020 TECHNIQUE: AP upright view of the chest FINDINGS: A dual-lead pacemaker is unchanged. Cardiomegaly is unchanged. Pulmonary vascularity is pr ominent. The left lung base is partially obscured due to superimposed soft tissue, [facility]. No consolidation, pleural effusion, or pneumothorax. IMPRESSION: 1. No definite acute abnormality. 2. Unchanged cardiomegaly and prominent pulmonary vascularity. 3. Left lung base is partially obscured due to body habitus/superimposed soft tissue, unchanged from multiple prior exams. Electronically signed by: Jacinda Acosta MD (06/14/2021 12:47 PM) [id number]
[2021-06-14 15:00] VITALS: BP 101/47
--- NOTE | 2021-06-14 16:25 | NUR ---
Wound/Ostomy Care Wound Type/Assessment: Wound care consult for BLE cellulitis. Pt has open wound to right lateral calf 4x2.5x0.1, and weeping macerated skin to left calf circumferentially. Pt also has stage II pressure ulcer to left buttock. Treatment Recommendations/Plan: Cleanse wounds. BLE: Apply betadine to BLE daily, per patient request and keep elevated on bartolo. Coccyx: apply contact layer and foam dressing, change every 3 days and PRN. Education provided: PU prevention and WC POC with elevation Offloading surface/device: Float heels on pillows Recommended Referrals/Tests: na Discharge Recommendations for dressings: see above
[2021-06-14 18:17] LABS: CALCIUM 9.3 mg/dL (8.5-10.1); CREATININE 1.5 mg/dL (0.7-1.3); GFR 46.4; POTASSIUM 3.3 mmol/L (3.5-5.1)
[2021-06-14 19:00] VITALS: BP 126/61
[2021-06-14] MEDS: MORPHINE SULFATE 2 MG/ML INJ. IV PRN ×2 (19:01→23:59)
[2021-06-14] MEDS: LACTOBACILLUS RHAMNOSUS GG 1 CAPSULE. PO SCH (20:56)
[2021-06-14] MEDS: ATORVASTATIN CALCIUM 40 MG TABLET. PO SCH (20:57)
[2021-06-14 23:00] VITALS: BP 127/54
[2021-06-15] MEDS: MORPHINE SULFATE 2 MG/ML INJ. IV PRN (02:58)
[2021-06-15 03:00] VITALS: BP 102/52
[2021-06-15] MEDS: HYDROcodone/APAP 7.5/325MG 1 TAB TABLET PO PRN ×2 (05:37→20:56)
[2021-06-15] MEDS: PIPERACILLIN/TAZOBACTAM 3.375 GM in IV NORMAL SALINE 50ML 50 ML IV SCH ×3 (05:37→17:52)
[2021-06-15 07:00] VITALS: BP 136/78
[2021-06-15] MEDS: LORazepam 0.5 MG TABLET PO PRN ×2 (07:54→17:56)
[2021-06-15] MEDS: MORPHINE SULFATE 4 MG/ML INJ. IV PRN ×2 (07:54→16:49)
[2021-06-15] MEDS: INSULIN LISPRO 300 UNITS/3 ML VIAL. SQ SCH ×6 (08:00→17:04)
[2021-06-15] MEDS: LACTOBACILLUS RHAMNOSUS GG 1 CAPSULE. PO SCH ×2 (08:06→20:56)
[2021-06-15] MEDS: ASPIRIN ENTERIC COATED 81 MG TABLET.DR. PO SCH (08:06)
[2021-06-15] MEDS: METOPROLOL TART IMMED RELEASE 25 MG TABLET. PO SCH ×2 (08:06→20:56)
[2021-06-15] MEDS: FENOFIBRATE,MICRONIZED 134 MG CAPSULE PO SCH (08:07)
[2021-06-15] MEDS: GABAPENTIN 300 MG CAPSULE. PO SCH ×3 (08:07→20:56)
[2021-06-15] MEDS: POTASSIUM CHLORIDE 20 MEQ TABLET.ER. PO SCH ×3 (08:07→16:56)
[2021-06-15] MEDS: DULoxetine HCL 30 MG CAPSULE.DR PO SCH (08:07)
[2021-06-15] MEDS: APIXABAN 5 MG TABLET. PO SCH ×2 (08:07→20:56)
[2021-06-15] MEDS: LINEZOLID 600 MG TABLET PO SCH ×2 (08:07→20:56)
[2021-06-15] MEDS: FAMOTIDINE 20 MG TABLET. PO SCH ×2 (08:08→20:56)
[2021-06-15] MEDS: AMIODARONE HCL 200 MG TABLET. PO SCH (08:08)
[2021-06-15 08:09] LABS: BASO % 0 % (0-3); EOS # 0.3 x10^3/uL (0.0-0.7); EOS % 2 % (0-3); HEMATOCRIT 31.9 % (39.0-53.0); HEMOGLOBIN 10.4 g/dL (13.0-17.5); LYMPH # 1.2 x10^3/uL (1.0-4.8); LYMPH % 8 % (24-48); MEAN CORPUSCULAR HEMOGLOBIN 27 pg (25-35); MEAN CORPUSCULAR HGB CONC 33 g/dL (31-37); MEAN CORPUSCULAR VOLUME 84 fL (79-100); MONO % 6 % (0-9); NEUT # 13.3 x10^3/uL (1.8-7.7); NEUT % 84 % (31-73); PLATELET COUNT 615 x10^3/uL (140-400); RED BLOOD COUNT 3.79 x10^6/uL (4.30-5.70); WHITE BLOOD COUNT 15.8 x10^3/uL (4.0-11.0)
[2021-06-15 08:15] LABS: CALCIUM 9.5 mg/dL (8.5-10.1); CREATININE 1.2 mg/dL (0.7-1.3); MAGNESIUM 2.2 mg/dL (1.8-2.4); POTASSIUM 3.3 mmol/L (3.5-5.1)
--- NOTE | 2021-06-15 09:58 | PDOC ---
Infectious Disease Note Vital Signs: Vital Signs Vital Signs Date Time Temp Pulse Resp B/P (MAP) Pulse Ox O2 Delivery O2 Flow Rate FiO2 06/15/21 08:51 Nasal Cannula 2.0 06/15/21 08:08 89 136/78 06/15/21 07:54 91 06/15/21 07:00 98.3 24 98.3 Medications: Inpatient Meds: Medications reviewed. Labs: Lab Laboratory Tests Test 06/14/21 11:19 06/14/21 15:50 06/14/21 17:45 06/14/21 17:47 Glucose (Fingerstick) 128 mg/dL (70-99) 144 mg/dL (70-99) Potassium Level 2.9 mmol/L (3.5-5.1) 3.3 mmol/L (3.5-5.1) Sodium Level 134 mmol/L (136-145) Chloride Level 95 mmol/L (98-107) Carbon Dioxide Level 32 mmol/L (21-32) Anion Gap 7 (6-14) Blood Urea Nitrogen 25 mg/dL (8-26) Creatinine 1.5 mg/dL (0.7-1.3) Estimated GFR (Cockcroft-Gault) 46.4 Glucose Level 152 mg/dL (70-99) Calcium Level 9.3 mg/dL (8.5-10.1) Test 06/15/21 05:45 06/15/21 07:31 White Blood Count 15.8 x10^3/uL (4.0-11.0) Red Blood Count 3.79 x10^6/uL (4.30-5.70) Hemoglobin 10.4 g/dL (13.0-17.5) Hematocrit 31.9 % (39.0-53.0) Mean Corpuscular Volume 84 fL (79-100) Mean Corpuscular Hemoglobin 27 pg (25-35) Mean Corpuscular Hemoglobin Concent 33 g/dL (31-37) Red Cell Distribution Width 18.0 % (11.5-14.5) Platelet Count 615 x10^3/uL (140-400) Neutrophils (%) (Auto) 84 % (31-73) Lymphocytes (%) (Auto) 8 % (24-48) Monocytes (%) (Auto) 6 % (0-9) Eosinophils (%) (Auto) 2 % (0-3) Basophils (%) (Auto) 0 % (0-3) Neutrophils # (Auto) 13.3 x10^3/uL (1.8-7.7) Lymphocytes # (Auto) 1.2 x10^3/uL (1.0-4.8) Monocytes # (Auto) 1.0 x10^3/uL (0.0-1.1) Eosinophils # (Auto) 0.3 x10^3/uL (0.0-0.7) Basophils # (Auto) 0.0 x10^3/uL (0.0-0.2) Sodium Level 134 mmol/L (136-145) Potassium Level 3.3 mmol/L (3.5-5.1) Chloride Level 96 mmol/L (98-107) Carbon Dioxide Level 31 mmol/L (21-32) Anion Gap 7 (6-14) Blood Urea Nitrogen 20 mg/dL (8-26) Creatinine 1.2 mg/dL (0.7-1.3) Estimated GFR (Cockcroft-Gault) 60.0 Glucose Level 101 mg/dL (70-99) Calcium Level 9.5 mg/dL (8.5-10.1) Magnesium Level 2.2 mg/dL (1.8-2.4) Glucose (Fingerstick) 122 mg/dL (70-99) Plan: Plan of Care ALDA Khan MD Jun 15, 2021 09:58
--- NOTE | 2021-06-15 10:11 | PDOC ---
PROGRESS NOTES Date of Service: DATE: 06/15/21 TIME: 10:11 Chief Complaint Chief Complaint IMPRESSION Assessment/Plan Left lower extremity cellulitis failing outpatient therapy Acute electrolyte derangementhyponatremia, hypochloremia due to volume deplet ion ZACHERY due to vasomotor nephropathy Severe protein malnutrition Anemia of chronic disease Morbid Obesity, SEVERE History of atrial fibrillation History of CHF, diastolic dysfunction History of diabetes mellitus type 2 History of dyslipidemia MILD HYPOXIA SEPSIS POA Admit to hospitalist service for further management Continue empiric IV antibiotics Strict I's and O's Avoid nephrotoxic agents IV electrolyte replacement Continue IV fluids Eliquis for DVT prophylaxis Protonix GI prophylaxis ADA diet CODE STATUS full Discussed with RN Disposition inpatient management as above DPOA: CXR TODAY Continue Zosyn and Zyvox Elevate left lower extremity. D/W RN Justifications for Admission Justifications for Admission Other Justification History of Present Illness History of Present Illness 71 year old male who was brought here by EMS from home due to left leg wound. Patient had this wound for years. [facility], [facility] ago. He continues to have cellulitis of his left lower extremity, but the last 3-day is to have more blister and more drainage from the wound on left leg. Patient said he was in a lot of pain. Patient denies any cough or fever. Patient has history of diabetic, morbidly obese. Past Medical/Surgical History: PMH/PSH: Past Medical History: A-Fib, CAD, CHF, Diabetes-Type II, High Cholesterol, ND Past Surgical History: Angioplasty, Cholecystectomy, Pacemaker, ROTATOR CUFF,HERNIA,CARDIAC STENT Allergies: Allergies: Coded Allergies: vancomycin (Verified Allergy, Severe, Rash AND SOA, 11/23/19) I S O L A T I O N *CONTACT* (Verified Allergy, Unknown, 12/29/19) ESBL Family History: Family History: Reviewed with no relevant findings Social History: Social History: Smoking Status: Former Smoker Alcohol Use: None Drug Use: None Current Medications: Current Medications Current Medications Morphine Sulfate (Morphine Sulfate) 4 mg 1X ONCE IVP Last administered on 06/13/21at 12:50; Start 06/13/21 at 12:30; Stop 06/13/21 at 12:31; Status DC Piperacillin Sod/ Tazobactam Sod (Zosyn Per Pharmacy) 1 each PRN DAILY PRN MC SEE COMMENTS; Start 06/13/21 at 12:45; Status UNV Piperacillin Sod/ Tazobactam Sod 3.375 gm/Sodium Chloride 50 ml @ 100 mls/hr 1X ONCE IV Last administered on 06/13/21at 12:50; Start 06/13/21 at 12:45; Stop 06/13/21 at 13:14 Morphine Sulfate (Morphine Sulfate) 4 mg PRN Q2HR PRN IVP PAIN; Start 06/13/21 at 12:45; Stop 06/14/21 at 12:44 Active Scripts Active [Oxygen] 2 L DEJUAN CONT PRN Zyvox (Linezolid) 600 Mg Tablet 600 Mg PO BID 10 Days for two weeks. Started 04/01/21. Hydrocodone-Apap 7.5-325 (Hydrocodone Bit/Acetaminophen) 1 Tab Tablet 1 Tab PO PRN Q6HRS PRN 14 Days .. Polyethylene Glycol 3350 17 Gm Powd.pack 17 Gm PO PRN DAILY PRN 30 Days Klor-Con M20 (Potassium Chloride) 20 Meq Tab.er.prt 1 Tab PO DAILY 30 Days Metoprolol Tartrate 25 Mg Tablet 1 Tab PO BID Metformin Hcl 500 Mg Tablet 500 Mg PO BIDWMEALS 30 Days Eliquis (Apixaban) 5 Mg Tablet 5 Mg PO BID 30 Days Reported Diltiazem 24Hr Cd (Diltiazem HCl) 240 Mg Cap.er.24h 1 Cap PO DAILY Cephalexin 500 Mg Capsule 1 Cap PO QID Furosemide 40 Mg Tablet 1 Tab PO BID Duloxetine Hcl 30 Mg Capsule.dr 1 Cap PO DAILY 90 Days Gabapentin 300 Mg Capsule 1 Cap PO TID 90 Days Famotidine 20 Mg Tablet 20 Mg PO BID Novolog Flexpen (Insulin Aspart) 100 Unit/1 Ml Insuln.pen 15 Unit SQ TIDBFRMEAL Robaxin-750 (Methocarbamol) 750 Mg Tablet 500 Mg PO TID PRN PRN Aspir 81 (Aspirin) 81 Mg Tablet.dr 81 Mg PO DAILY Fenofibrate (Fenofibrate,Micronized) 134 Mg Capsule 134 Mg PO DAILY Atorvastatin Calcium 40 Mg Tablet 40 Mg PO HS Amiodarone Hcl 200 Mg Tablet 200 Mg PO DAILY ROS: Review of Systems Review of System REVIEW OF SYSTEMS: GENERAL: Denies weakness SKIN: No bruising, hair changes or rashes. EYES: No blurred, double or loss of vision. NOSE AND THROAT: No history of nosebleeds, hoarseness or sore throat. HEART: No history of palpitations, chest pain or shortness of breath on exertion. LUNGS: Denies cough, hemoptysis, wheezing or shortness of breath. GASTROINTESTINAL: Denies changes in appetite, nausea, vomiting, diarrhea or constipation. GENITOURINARY: No history of frequency, urgency, hesitancy or nocturia. NEUROLOGIC: Denies history of numbness, tingling, or tremor. PSYCHIATRIC: No history of panic, anxiety or depression. ENDOCRINE: No history of heat or cold intolerance, polyuria or polydipsia. EXTREMITIES: Left leg pain and redness Vitals Vitals Vital Signs Date Time Temp Pulse Resp B/P (MAP) Pulse Ox O2 Delivery O2 Flow Rate FiO2 06/15/21 08:51 Nasal Cannula 2.0 06/15/21 08:08 89 136/78 06/15/21 07:54 91 06/15/21 07:00 98.3 24 98.3 Physical Exam Physical Exam General: Well developed, well nourished, no acute distress, well appearing HEENT: Pupils equally round and reactive to light, EOMI, no discharge, normal conjunctiva Neck: Supple, no nuchal rigidity, no JVD, trachea midline, no tenderness Cardiac: RRR, no murmurs, no gallops, no rubs Chest/Lungs: CTAB, no wheeze, no rhonchi, no crackles Abdomen: soft, non-distended, no guarding, no peritoneal signs, non-tender Back: No tenderness Extremities: Left lower extremity with swelling and erythema with multiple open wounds. Wounds are draining clear fluid. Tender to palpation Neuro: Alert and oriented x 4, no focal deficits, normal speech General: Alert, Oriented X3, Cooperative, No acute distress Heart: Regular rate, Normal S1, Normal S2 Lungs: Clear Abdomen: Normal bowel sounds, Soft, No tenderness Extremities: No cyanosis, Other ( swelling and erythema with multiple open wounds) Labs LABS Laboratory Tests Test 06/14/21 11:19 06/14/21 15:50 06/14/21 17:45 06/14/21 17:47 Glucose (Fingerstick) 128 mg/dL (70-99) 144 mg/dL (70-99) Potassium Level 2.9 mmol/L (3.5-5.1) 3.3 mmol/L (3.5-5.1) Sodium Level 134 mmol/L (136-145) Chloride Level 95 mmol/L (98-107) Carbon Dioxide Level 32 mmol/L (21-32) Anion Gap 7 (6-14) Blood Urea Nitrogen 25 mg/dL (8-26) Creatinine 1.5 mg/dL (0.7-1.3) Estimated GFR (Cockcroft-Gault) 46.4 Glucose Level 152 mg/dL (70-99) Calcium Level 9.3 mg/dL (8.5-10.1) Test 06/15/21 05:45 06/15/21 07:31 White Blood Count 15.8 x10^3/uL (4.0-11.0) Red Blood Count 3.79 x10^6/uL (4.30-5.70) Hemoglobin 10.4 g/dL (13.0-17.5) Hematocrit 31.9 % (39.0-53.0) Mean Corpuscular Volume 84 fL (79-100) Mean Corpuscular Hemoglobin 27 pg (25-35) Mean Corpuscular Hemoglobin Concent 33 g/dL (31-37) Red Cell Distribution Width 18.0 % (11.5-14.5) Platelet Count 615 x10^3/uL (140-400) Neutrophils (%) (Auto) 84 % (31-73) Lymphocytes (%) (Auto) 8 % (24-48) Monocytes (%) (Auto) 6 % (0-9) Eosinophils (%) (Auto) 2 % (0-3) Basophils (%) (Auto) 0 % (0-3) Neutrophils # (Auto) 13.3 x10^3/uL (1.8-7.7) Lymphocytes # (Auto) 1.2 x10^3/uL (1.0-4.8) Monocytes # (Auto) 1.0 x10^3/uL (0.0-1.1) Eosinophils # (Auto) 0.3 x10^3/uL (0.0-0.7) Basophils # (Auto) 0.0 x10^3/uL (0.0-0.2) Sodium Level 134 mmol/L (136-145) Potassium Level 3.3 mmol/L (3.5-5.1) Chloride Level 96 mmol/L (98-107) Carbon Dioxide Level 31 mmol/L (21-32) Anion Gap 7 (6-14) Blood Urea Nitrogen 20 mg/dL (8-26) Creatinine 1.2 mg/dL (0.7-1.3) Estimated GFR (Cockcroft-Gault) 60.0 Glucose Level 101 mg/dL (70-99) Calcium Level 9.5 mg/dL (8.5-10.1) Magnesium Level 2.2 mg/dL (1.8-2.4) Glucose (Fingerstick) 122 mg/dL (70-99) Assessment and Plan Assessmemt and Plan Problems Medical Problems: (1) Left leg cellulitis Status: Acute Comment Review of Relevant I have reviewed the following items ashwini (where applicable) has been applied. Labs Laboratory Tests Test 06/13/21 12:35 06/13/21 12:55 06/13/21 16:37 06/13/21 20:51 White Blood Count 13.8 x10^3/uL (4.0-11.0) Red Blood Count 3.83 x10^6/uL (4.30-5.70) Hemoglobin 10.5 g/dL (13.0-17.5) Hematocrit 31.6 % (39.0-53.0) Mean Corpuscular Volume 83 fL (79-100) Mean Corpuscular Hemoglobin 28 pg (25-35) Mean Corpuscular Hemoglobin Concent 33 g/dL (31-37) Red Cell Distribution Width 17.5 % (11.5-14.5) Platelet Count 698 x10^3/uL (140-400) Neutrophils (%) (Auto) 78 % (31-73) Lymphocytes (%) (Auto) 11 % (24-48) Monocytes (%) (Auto) 9 % (0-9) Eosinophils (%) (Auto) 2 % (0-3) Basophils (%) (Auto) 1 % (0-3) Neutrophils # (Auto) 10.7 x10^3/uL (1.8-7.7) Lymphocytes # (Auto) 1.6 x10^3/uL (1.0-4.8) Monocytes # (Auto) 1.2 x10^3/uL (0.0-1.1) Eosinophils # (Auto) 0.3 x10^3/uL (0.0-0.7) Basophils # (Auto) 0.1 x10^3/uL (0.0-0.2) Sodium Level 133 mmol/L (136-145) Potassium Level 3.1 mmol/L (3.5-5.1) Chloride Level 93 mmol/L (98-107) Carbon Dioxide Level 29 mmol/L (21-32) Anion Gap 11 (6-14) Blood Urea Nitrogen 32 mg/dL (8-26) Creatinine 1.6 mg/dL (0.7-1.3) Estimated GFR (Cockcroft-Gault) 43.1 BUN/Creatinine Ratio 20 (6-20) Glucose Level 94 mg/dL (70-99) Calcium Level 9.3 mg/dL (8.5-10.1) Magnesium Level 1.7 mg/dL (1.8-2.4) Total Bilirubin 0.3 mg/dL (0.2-1.0) Aspartate Amino Transf (AST/SGOT) 14 U/L (15-37) Alanine Aminotransferase (ALT/SGPT) 21 U/L (16-63) Alkaline Phosphatase 70 U/L (46-116) Total Protein 8.6 g/dL (6.4-8.2) Albumin 2.9 g/dL (3.4-5.0) Albumin/Globulin Ratio 0.5 (1.0-1.7) SARS-CoV-2 RNA (LEYDI) Negative (Negative) SARS-CoV-2 Antigen (Rapid) Negative (NEGATIVE) Glucose (Fingerstick) 83 mg/dL (70-99) 124 mg/dL (70-99) Test 06/14/21 04:55 06/14/21 07:57 06/14/21 11:19 06/14/21 15:50 White Blood Count 15.0 x10^3/uL (4.0-11.0) Red Blood Count 3.37 x10^6/uL (4.30-5.70) Hemoglobin 9.3 g/dL (13.0-17.5) Hematocrit 27.6 % (39.0-53.0) Mean Corpuscular Volume 82 fL (79-100) Mean Corpuscular Hemoglobin 28 pg (25-35) Mean Corpuscular Hemoglobin Concent 34 g/dL (31-37) Red Cell Distribution Width 17.0 % (11.5-14.5) Platelet Count 610 x10^3/uL (140-400) Neutrophils (%) (Auto) 78 % (31-73) Lymphocytes (%) (Auto) 11 % (24-48) Monocytes (%) (Auto) 10 % (0-9) Eosinophils (%) (Auto) 1 % (0-3) Basophils (%) (Auto) 1 % (0-3) Neutrophils # (Auto) 11.7 x10^3/uL (1.8-7.7) Lymphocytes # (Auto) 1.7 x10^3/uL (1.0-4.8) Monocytes # (Auto) 1.5 x10^3/uL (0.0-1.1) Eosinophils # (Auto) 0.1 x10^3/uL (0.0-0.7) Basophils # (Auto) 0.1 x10^3/uL (0.0-0.2) Sodium Level 133 mmol/L (136-145) Potassium Level 2.6 mmol/L (3.5-5.1) 2.9 mmol/L (3.5-5.1) Chloride Level 94 mmol/L (98-107) Carbon Dioxide Level 30 mmol/L (21-32) Anion Gap 9 (6-14) Blood Urea Nitrogen 26 mg/dL (8-26) Creatinine 1.4 mg/dL (0.7-1.3) Estimated GFR (Cockcroft-Gault) 50.2 Glucose Level 111 mg/dL (70-99) Calcium Level 8.9 mg/dL (8.5-10.1) Phosphorus Level 3.5 mg/dL (2.6-4.7) Magnesium Level 1.7 mg/dL (1.8-2.4) Glucose (Fingerstick) 107 mg/dL (70-99) 128 mg/dL (70-99) Test 06/14/21 17:45 06/14/21 17:47 06/15/21 05:45 06/15/21 07:31 Sodium Level 134 mmol/L (136-145) 134 mmol/L (136-145) Potassium Level 3.3 mmol/L (3.5-5.1) 3.3 mmol/L (3.5-5.1) Chloride Level 95 mmol/L (98-107) 96 mmol/L (98-107) Carbon Dioxide Level 32 mmol/L (21-32) 31 mmol/L (21-32) Anion Gap 7 (6-14) 7 (6-14) Blood Urea Nitrogen 25 mg/dL (8-26) 20 mg/dL (8-26) Creatinine 1.5 mg/dL (0.7-1.3) 1.2 mg/dL (0.7-1.3) Estimated GFR (Cockcroft-Gault) 46.4 60.0 Glucose Level 152 mg/dL (70-99) 101 mg/dL (70-99) Calcium Level 9.3 mg/dL (8.5-10.1) 9.5 mg/dL (8.5-10.1) Glucose (Fingerstick) 144 mg/dL (70-99) 122 mg/dL (70-99) White Blood Count 15.8 x10^3/uL (4.0-11.0) Red Blood Count 3.79 x10^6/uL (4.30-5.70) Hemoglobin 10.4 g/dL (13.0-17.5) Hematocrit 31.9 % (39.0-53.0) Mean Corpuscular Volume 84 fL (79-100) Mean Corpuscular Hemoglobin 27 pg (25-35) Mean Corpuscular Hemoglobin Concent 33 g/dL (31-37) Red Cell Distribution Width 18.0 % (11.5-14.5) Platelet Count 615 x10^3/uL (140-400) Neutrophils (%) (Auto) 84 % (31-73) Lymphocytes (%) (Auto) 8 % (24-48) Monocytes (%) (Auto) 6 % (0-9) Eosinophils (%) (Auto) 2 % (0-3) Basophils (%) (Auto) 0 % (0-3) Neutrophils # (Auto) 13.3 x10^3/uL (1.8-7.7) Lymphocytes # (Auto) 1.2 x10^3/uL (1.0-4.8) Monocytes # (Auto) 1.0 x10^3/uL (0.0-1.1) Eosinophils # (Auto) 0.3 x10^3/uL (0.0-0.7) Basophils # (Auto) 0.0 x10^3/uL (0.0-0.2) Magnesium Level 2.2 mg/dL (1.8-2.4) Laboratory Tests Test 06/14/21 11:19 06/14/21 15:50 06/14/21 17:45 06/14/21 17:47 Glucose (Fingerstick) 128 mg/dL (70-99) 144 mg/dL (70-99) Potassium Level 2.9 mmol/L (3.5-5.1) 3.3 mmol/L (3.5-5.1) Sodium Level 134 mmol/L (136-145) Chloride Level 95 mmol/L (98-107) Carbon Dioxide Level 32 mmol/L (21-32) Anion Gap 7 (6-14) Blood Urea Nitrogen 25 mg/dL (8-26) Creatinine 1.5 mg/dL (0.7-1.3) Estimated GFR (Cockcroft-Gault) 46.4 Glucose Level 152 mg/dL (70-99) Calcium Level 9.3 mg/dL (8.5-10.1) Test 06/15/21 05:45 06/15/21 07:31 White Blood Count 15.8 x10^3/uL (4.0-11.0) Red Blood Count 3.79 x10^6/uL (4.30-5.70) Hemoglobin 10.4 g/dL (13.0-17.5) Hematocrit 31.9 % (39.0-53.0) Mean Corpuscular Volume 84 fL (79-100) Mean Corpuscular Hemoglobin 27 pg (25-35) Mean Corpuscular Hemoglobin Concent 33 g/dL (31-37) Red Cell Distribution Width 18.0 % (11.5-14.5) Platelet Count 615 x10^3/uL (140-400) Neutrophils (%) (Auto) 84 % (31-73) Lymphocytes (%) (Auto) 8 % (24-48) Monocytes (%) (Auto) 6 % (0-9) Eosinophils (%) (Auto) 2 % (0-3) Basophils (%) (Auto) 0 % (0-3) Neutrophils # (Auto) 13.3 x10^3/uL (1.8-7.7) Lymphocytes # (Auto) 1.2 x10^3/uL (1.0-4.8) Monocytes # (Auto) 1.0 x10^3/uL (0.0-1.1) Eosinophils # (Auto) 0.3 x10^3/uL (0.0-0.7) Basophils # (Auto) 0.0 x10^3/uL (0.0-0.2) Sodium Level 134 mmol/L (136-145) Potassium Level 3.3 mmol/L (3.5-5.1) Chloride Level 96 mmol/L (98-107) Carbon Dioxide Level 31 mmol/L (21-32) Anion Gap 7 (6-14) Blood Urea Nitrogen 20 mg/dL (8-26) Creatinine 1.2 mg/dL (0.7-1.3) Estimated GFR (Cockcroft-Gault) 60.0 Glucose Level 101 mg/dL (70-99) Calcium Level 9.5 mg/dL (8.5-10.1) Magnesium Level 2.2 mg/dL (1.8-2.4) Glucose (Fingerstick) 122 mg/dL (70-99) Medications Current Medications Morphine Sulfate (Morphine Sulfate) 4 mg 1X ONCE IVP Last administered on 06/13/21at 12:50; Start 06/13/21 at 12:30; Stop 06/13/21 at 12:31; Status DC Piperacillin Sod/ Tazobactam Sod (Zosyn Per Pharmacy) 1 each PRN DAILY PRN MC SEE COMMENTS; Start 06/13/21 at 12:45 Piperacillin Sod/ Tazobactam Sod 3.375 gm/Sodium Chloride 50 ml @ 100 mls/hr 1X ONCE IV Last administered on 06/13/21at 12:50; Start 06/13/21 at 12:45; Stop 06/13/21 at 13:14; Status DC Morphine Sulfate (Morphine Sulfate) 4 mg PRN Q2HR PRN IVP PAIN Last administered on 06/14/21at 10:10; Start 06/13/21 at 12:45; Stop 06/14/21 at 12:44; Status DC Hydromorphone HCl (Dilaudid) 2 mg 1X ONCE IVP Last administered on 06/13/21at 13:21; Start 06/13/21 at 13:15; Stop 06/13/21 at 13:16; Status DC Amiodarone HCl (Cordarone) 200 mg DAILY PO Last administered on 06/15/21at 08:08; Start 06/14/21 at 09:00 Apixaban (Eliquis) 5 mg BID PO Last administered on 06/15/21at 08:07; Start 06/13/21 at 21:00 Aspirin (Ecotrin) 81 mg DAILY PO Last administered on 06/15/21 08:06; Start 06/14/21 at 09:00 Atorvastatin Calcium (Lipitor) 40 mg HS PO Last administered on 06/14/21at 20:57; Start 06/13/21 at 21:00 Diltiazem HCl (Cardizem 24hr Cd) 240 mg DAILY PO Last administered on 06/15/21at 08:06; Start 06/14/21 at 09:00 Duloxetine HCl (Cymbalta) 30 mg DAILY PO Last administered on 06/15/21at 08:07; Start 06/14/21 at 09:00 Famotidine (Pepcid) 20 mg BID PO Last administered on 06/15/21at 08:08; Start 06/13/21 at 21:00 Fenofibrate (Lofibra) 134 mg DAILY PO Last administered on 06/15/21at 08:07; Start 06/14/21 at 09:00 Furosemide (Lasix) 40 mg BID94 PO ; Start 06/13/21 at 16:00; Stop 06/13/21 at 15:18; Status DC Gabapentin (Neurontin) 300 mg TID PO Last administered on 06/15/21 08:07; Start 06/13/21 at 14:00 Acetaminophen/ Hydrocodone Bitart (Lortab 7.5/325) 1 tab PRN Q6HRS PRN PO MOD- SEVERE PAIN Last administered on 06/15/21at 05:37; Start 06/13/21 at 13:15 Linezolid (Zyvox) 600 mg BID PO Last administered on 06/15/21at 08:07; Start 06/13/21 at 21:00 Methocarbamol (Robaxin) 500 mg TID PRN PRN PO MUSCLE PAIN Last administered on 06/14/21at 22:12; Start 06/13/21 at 13:45 Metoprolol Tartrate (Lopressor) 25 mg BID PO Last administered on 06/15/21at 08:06; Start 06/13/21 at 21:00 Polyethylene Glycol (miraLAX PACKET) 17 gm PRN DAILY PRN PO CONSTIPATION, 1ST CHOICE; Start 06/13/21 at 13:15 Insulin Human Lispro (HumaLOG) 15 units TIDWMEALS SQ Last administered on 06/15/21at 08:19; Start 06/13/21 at 17:00 Sennosides (Senna) 17.2 mg PRN BID PRN PO CONSTIPATION, 2ND CHOICE; Start 06/13/21 at 13:15 Docusate Sodium (Colace) 100 mg PRN DAILY PRN PO HARD STOOLS; Start 06/13/21 at 13:15 Ondansetron HCl (Zofran) 4 mg PRN Q6HRS PRN IVP NAUSEA/VOMITING; Start 06/13/21 at 13:15 Insulin Human Lispro (HumaLOG) 0-7 UNITS TIDWMEALS SQ ; Start 06/13/21 at 17:00 Dextrose (Dextrose 50%-Water Syringe) 12.5 gm PRN Q15MIN PRN IV SEE COMMENTS; Start 06/13/21 at 13:15 Acetaminophen (Tylenol) 650 mg PRN Q4HRS PRN PO TEMP OVER 100.4F OR MILD PAIN; Start 06/13/21 at 13:15 Morphine Sulfate (Morphine Sulfate) 1 mg PRN Q1HR PRN IV PAIN Last administered on 06/15/21at 02:58; Start 06/13/21 at 13:15 Morphine Sulfate (Morphine Sulfate) 2 mg PRN Q2HR PRN IVP SEVERE PAIN 7-10 Last administered on 06/13/21at 19:20; Start 06/13/21 at 13:15; Stop 06/14/21 at 13:14; Status DC Prochlorperazine Edisylate (Compazine) 10 mg PRN Q6HRS PRN IV NAUSEA/VOMITING, 2ND CHOICE; Start 06/13/21 at 13:15 Piperacillin Sod/ Tazobactam Sod 3.375 gm/Sodium Chloride 50 ml @ 100 mls/hr Q6HRS IV Last administered on 06/15/21at 05:37; Start 06/13/21 at 18:00 Furosemide (Lasix) 40 mg 1X ONCE IVP Last administered on 06/13/21at 15:48; Start 06/13/21 at 15:30; Stop 06/13/21 at 15:31; Status DC Potassium Chloride (Klor-Con) 40 meq TIDWMEALS PO Last administered on 06/15/21at 08:07; Start 06/14/21 at 08:00 Magnesium Sulfate 50 ml @ 25 mls/hr 1X ONCE IV Last administered on 06/14/21at 06:40; Start 06/14/21 at 07:00; Stop 06/14/21 at 08:59; Status DC Potassium Chloride (Klor-Con) 40 meq 1X ONCE PO Last administered on 06/14/21at 12:44; Start 06/14/21 at 11:15; Stop 06/14/21 at 11:16; Status DC Info (Anti-Coagulation Monitoring By Pharmacy) 1 each PRN DAILY PRN MC PER PROTOCOL; Start 06/14/21 at 13:30 Lactobacillus Rhamnosus (Culturelle) 1 cap BID PO Last administered on 06/15/21at 08:06; Start 06/14/21 at 21:00 Lorazepam (Ativan) 0.5 mg PRN Q6HRS PRN PO ANXIETY / AGITATION Last administered on 06/15/21at 07:54; Start 06/15/21 at 07:45 Morphine Sulfate (Morphine Sulfate) 4 mg PRN Q4HRS PRN IV MODERATE TO SEVERE PAIN Last administered on 06/15/21at 07:54; Start 06/15/21 at 07:45 Active Scripts Active [Oxygen] 2 L DEJUAN CONT PRN Zyvox (Linezolid) 600 Mg Tablet 600 Mg PO BID 10 Days for two weeks. Started 04/01/21. Hydrocodone-Apap 7.5-325 (Hydrocodone Bit/Acetaminophen) 1 Tab Tablet 1 Tab PO PRN Q6HRS PRN 14 Days .. Polyethylene Glycol 3350 17 Gm Powd.pack 17 Gm PO PRN DAILY PRN 30 Days Klor-Con M20 (Potassium Chloride) 20 Meq Tab.er.prt 1 Tab PO DAILY 30 Days Metoprolol Tartrate 25 Mg Tablet 1 Tab PO BID Metformin Hcl 500 Mg Tablet 500 Mg PO BIDWMEALS 30 Days Eliquis (Apixaban) 5 Mg Tablet 5 Mg PO BID 30 Days Reported Diltiazem 24Hr Cd (Diltiazem HCl) 240 Mg Cap.er.24h 1 Cap PO DAILY Keflex (Cephalexin) 500 Mg Capsule 1 Cap PO QID Furosemide 40 Mg Tablet 1 Tab PO BID Duloxetine Hcl 30 Mg Capsule.dr 1 Cap PO DAILY 90 Days Gabapentin 300 Mg Capsule 1 Cap PO TID 90 Days Famotidine 20 Mg Tablet 20 Mg PO BID Novolog Flexpen (Insulin Aspart) 100 Unit/1 Ml Insuln.pen 15 Unit SQ TIDBFRMEAL Robaxin-750 (Methocarbamol) 750 Mg Tablet 500 Mg PO TID PRN PRN Aspir 81 (Aspirin) 81 Mg Tablet.dr 81 Mg PO DAILY Fenofibrate (Fenofibrate,Micronized) 134 Mg Capsule 134 Mg PO DAILY Atorvastatin Calcium 40 Mg Tablet 40 Mg PO HS Amiodarone Hcl 200 Mg Tablet 200 Mg PO DAILY Vitals/I & O Vital Sign - Last 24 Hours 06/14/21 06/14/21 06/14/21 06/14/21 11:00 15:00 19:00 19:01 Temp 98.0 98.1 98.7 98.0 98.1 98.7 Pulse 82 68 83 Resp 22 22 20 24 B/P (MAP) 143/68 (93) 101/47 (65) 126/61 (82) Pulse Ox 91 92 91 O2 Delivery Nasal Cannula Nasal Cannula Nasal Cannula Room Air O2 Flow Rate 2.0 2.0 2.0 06/14/21 06/14/21 06/14/21 06/14/21 19:31 20:00 20:57 22:12 Pulse 83 B/P (MAP) 126/61 O2 Delivery Room Air Nasal Cannula Nasal Cannula O2 Flow Rate 2.0 2.0 06/14/21 06/14/21 06/14/21 06/15/21 22:42 23:00 23:59 00:29 Temp 98.7 98.7 Pulse 69 Resp 18 B/P (MAP) 127/54 (78) Pulse Ox 93 O2 Delivery Nasal Cannula Nasal Cannula Nasal Cannula Nasal Cannula O2 Flow Rate 2.0 2.0 2.0 2.0 06/15/21 06/15/21 06/15/21 06/15/21 02:58 03:00 03:30 05:37 Temp 97.7 97.7 Pulse 84 Resp 18 B/P (MAP) 102/52 (69) Pulse Ox 91 O2 Delivery Nasal Cannula Nasal Cannula Nasal Cannula Nasal Cannula O2 Flow Rate 2.0 2.0 2.0 2.0 06/15/21 06/15/21 06/15/21 06/15/21 06:16 07:00 07:54 08:06 Temp 98.3 98.3 Pulse 89 89 Resp 24 B/P (MAP) 136/78 (97) 136/78 Pulse Ox 91 91 O2 Delivery Nasal Cannula Nasal Cannula Nasal Cannula O2 Flow Rate 2.0 2.0 2.0 06/15/21 06/15/21 06/15/21 06/15/21 08:06 08:08 08:48 08:51 Pulse 89 89 B/P (MAP) 136/78 136/78 O2 Delivery Nasal Cannula Nasal Cannula O2 Flow Rate 2.0 Intake and Output 06/14/21 06/14/21 06/15/21 15:00 23:00 07:00 Intake Total 50 ml 50 ml Output Total 100 ml Balance 50 ml 50 ml -100 ml Justicifation of Admission Dx: Justifications for Admission: Justification of Admission Dx: Yes CHF: Hemodynamic Instability Comminuty Aquired Pneumonia: Hypoxemia MAKENZIE TANG MD Jun 15, 2021 10:11
--- NOTE | 2021-06-15 10:53 | PDOC ---
Infectious Disease Note Subjective: Subjective Patient resting quietly Pain is under control No fevers No BM since admission Vital Signs: Vital Signs Vital Signs Date Time Temp Pulse Resp B/P (MAP) Pulse Ox O2 Delivery O2 Flow Rate FiO2 06/15/21 08:51 Nasal Cannula 2.0 06/15/21 08:08 89 136/78 06/15/21 07:54 91 06/15/21 07:00 98.3 24 98.3 Physical Exam: PHYSICAL EXAM GENERAL: Alert, oriented x 3, lying in bed complains of pain in the leg and back LAtter is chronic HEENT: Normocephalic, atraumatic. Anicteric. NECK: Supple. LUNGS: Clear bilaterally. No wheezing. HEART: S1, S2. ABDOMEN: Obese, soft, nontender, nondistended. No rebound or guarding. EXTREMITIES: Bilateral lower extremity lymphedema, venous stasis, redness with hyperpigmentation and chronic changes both lower extremities Left lower extremity redness warmth tenderness more than the right, few open wounds, no loss purulence MUSCULOSKELETAL: No joint swelling. No decrease in range of motion. CENTRAL NERVOUS SYSTEM: Alert, oriented x 3, grossly nonfocal. PSYCHIATRIC: Cooperative, calm. LINES: looks clean. Medications: Inpatient Meds: Medications reviewed. Labs: Lab Laboratory Tests Test 06/14/21 11:19 06/14/21 15:50 06/14/21 17:45 06/14/21 17:47 Glucose (Fingerstick) 128 mg/dL (70-99) 144 mg/dL (70-99) Potassium Level 2.9 mmol/L (3.5-5.1) 3.3 mmol/L (3.5-5.1) Sodium Level 134 mmol/L (136-145) Chloride Level 95 mmol/L (98-107) Carbon Dioxide Level 32 mmol/L (21-32) Anion Gap 7 (6-14) Blood Urea Nitrogen 25 mg/dL (8-26) Creatinine 1.5 mg/dL (0.7-1.3) Estimated GFR (Cockcroft-Gault) 46.4 Glucose Level 152 mg/dL (70-99) Calcium Level 9.3 mg/dL (8.5-10.1) Test 06/15/21 05:45 06/15/21 07:31 White Blood Count 15.8 x10^3/uL (4.0-11.0) Red Blood Count 3.79 x10^6/uL (4.30-5.70) Hemoglobin 10.4 g/dL (13.0-17.5) Hematocrit 31.9 % (39.0-53.0) Mean Corpuscular Volume 84 fL (79-100) Mean Corpuscular Hemoglobin 27 pg (25-35) Mean Corpuscular Hemoglobin Concent 33 g/dL (31-37) Red Cell Distribution Width 18.0 % (11.5-14.5) Platelet Count 615 x10^3/uL (140-400) Neutrophils (%) (Auto) 84 % (31-73) Lymphocytes (%) (Auto) 8 % (24-48) Monocytes (%) (Auto) 6 % (0-9) Eosinophils (%) (Auto) 2 % (0-3) Basophils (%) (Auto) 0 % (0-3) Neutrophils # (Auto) 13.3 x10^3/uL (1.8-7.7) Lymphocytes # (Auto) 1.2 x10^3/uL (1.0-4.8) Monocytes # (Auto) 1.0 x10^3/uL (0.0-1.1) Eosinophils # (Auto) 0.3 x10^3/uL (0.0-0.7) Basophils # (Auto) 0.0 x10^3/uL (0.0-0.2) Sodium Level 134 mmol/L (136-145) Potassium Level 3.3 mmol/L (3.5-5.1) Chloride Level 96 mmol/L (98-107) Carbon Dioxide Level 31 mmol/L (21-32) Anion Gap 7 (6-14) Blood Urea Nitrogen 20 mg/dL (8-26) Creatinine 1.2 mg/dL (0.7-1.3) Estimated GFR (Cockcroft-Gault) 60.0 Glucose Level 101 mg/dL (70-99) Calcium Level 9.5 mg/dL (8.5-10.1) Magnesium Level 2.2 mg/dL (1.8-2.4) Glucose (Fingerstick) 122 mg/dL (70-99) Objective: Assessment: 1. Left lower extremity cellulitis with underlying chronic venous insufficiency. 2. Bilateral lower extremity venous insufficiency. 3. Morbid obesity. 4. Diabetes. 5. Leukocytosis. 6. Congestive heart failure, chronic. Constipation Plan: Plan of Care Leukocytosis could be reactive Continue Zosyn and Zyvox Elevate left lower extremity. The patient states he cannot comply with the same. Encouraged to do it as much as possible to help with edema control. Local wound care Monitor labs and cultures .Discussed with ALDA ARREOLA MD Jun 15, 2021 10:53
[2021-06-15 11:00] VITALS: BP 137/62
[2021-06-15] MEDS: ASCORBIC ACID 500 MG TABLET PO SCH (12:18)
[2021-06-15] MEDS: MULTIVITAMIN with MINERAL TABLET. PO SCH (12:19)
[2021-06-15 15:00] VITALS: BP 112/55
[2021-06-15 19:15] VITALS: BP 114/57
[2021-06-15] MEDS: METHOCARBAMOL 500 MG TABLET PO PRN (20:56)
[2021-06-15] MEDS: ATORVASTATIN CALCIUM 40 MG TABLET. PO SCH (20:56)
[2021-06-15 23:07] VITALS: BP 123/66
[2021-06-16] MEDS: MORPHINE SULFATE 4 MG/ML INJ. IV PRN ×3 (00:41→09:05)
[2021-06-16] MEDS: LORazepam 0.5 MG TABLET PO PRN ×3 (00:41→20:21)
[2021-06-16] MEDS: PIPERACILLIN/TAZOBACTAM 3.375 GM in IV NORMAL SALINE 50ML 50 ML IV SCH ×5 (00:42→23:47)
[2021-06-16 03:02] VITALS: BP 135/72
[2021-06-16 07:00] VITALS: BP 135/60
--- NOTE | 2021-06-16 07:21 | PDOC ---
Infectious Disease Note Subjective: Subjective Patient complains of pain all over mainly in the back No fevers No BM since admission Vital Signs: Vital Signs Vital Signs Date Time Temp Pulse Resp B/P (MAP) Pulse Ox O2 Delivery O2 Flow Rate FiO2 06/16/21 04:17 20 92 Nasal Cannula 2.0 06/16/21 03:02 97.5 99 135/72 (93) 97.5 Physical Exam: PHYSICAL EXAM GENERAL: Alert, oriented x 3, lying in bed complains of pain in the leg and back LAtter is chronic HEENT: Normocephalic, atraumatic. Anicteric. NECK: Supple. LUNGS: Clear bilaterally. No wheezing. HEART: S1, S2. ABDOMEN: Obese, soft, nontender, nondistended. No rebound or guarding. EXTREMITIES: Bilateral lower extremity lymphedema, venous stasis, redness with hyperpigmentation and chronic changes both lower extremities Left lower extremity redness warmth tenderness more than the right, few open wounds, no loss purulence MUSCULOSKELETAL: No joint swelling. No decrease in range of motion. CENTRAL NERVOUS SYSTEM: Alert, oriented x 3, grossly nonfocal. PSYCHIATRIC: Cooperative, calm. LINES: looks clean. Medications: Inpatient Meds: Medications reviewed. Labs: Lab Laboratory Tests Test 06/15/21 07:31 06/15/21 20:46 06/16/21 07:12 Glucose (Fingerstick) 122 mg/dL (70-99) 85 mg/dL (70-99) 110 mg/dL (70-99) Objective: Assessment: 1. Left lower extremity cellulitis with underlying chronic venous insuffi ciency. 2. Bilateral lower extremity venous insufficiency. 3. Morbid obesity. 4. Diabetes. 5. Leukocytosis. 6. Congestive heart failure, chronic. Constipation Plan: Plan of Care Leukocytosis could be reactive Continue Zosyn and Zyvox start micafungin Elevate left lower extremity. The patient states he cannot comply with the same. Encouraged to do it as much as possible to help with edema control. Management of constipation per primary Trend WBC Local wound care Monitor labs and cultures .Discussed with ALDA ARREOLA MD Jun 16, 2021 07:20
[2021-06-16] MEDS: INSULIN LISPRO 300 UNITS/3 ML VIAL. SQ SCH ×6 (08:00→17:00)
[2021-06-16] MEDS: AMIODARONE HCL 200 MG TABLET. PO SCH (08:17)
[2021-06-16] MEDS: ASPIRIN ENTERIC COATED 81 MG TABLET.DR. PO SCH (08:17)
[2021-06-16] MEDS: APIXABAN 5 MG TABLET. PO SCH ×2 (08:17→20:22)
[2021-06-16] MEDS: GABAPENTIN 300 MG CAPSULE. PO SCH ×3 (08:17→20:21)
[2021-06-16] MEDS: DULoxetine HCL 30 MG CAPSULE.DR PO SCH (08:17)
[2021-06-16] MEDS: POTASSIUM CHLORIDE 20 MEQ TABLET.ER. PO SCH ×3 (08:18→17:00)
[2021-06-16] MEDS: METOPROLOL TART IMMED RELEASE 25 MG TABLET. PO SCH ×2 (08:18→20:22)
[2021-06-16] MEDS: MULTIVITAMIN with MINERAL TABLET. PO SCH (08:18)
[2021-06-16] MEDS: FAMOTIDINE 20 MG TABLET. PO SCH ×2 (08:18→22:53)
[2021-06-16] MEDS: ASCORBIC ACID 500 MG TABLET PO SCH (08:18)
[2021-06-16] MEDS: LACTOBACILLUS RHAMNOSUS GG 1 CAPSULE. PO SCH ×2 (08:18→20:22)
[2021-06-16] MEDS: LINEZOLID 600 MG TABLET PO SCH ×2 (08:18→20:22)
--- NOTE | 2021-06-16 08:36 | PDOC ---
PROGRESS NOTES Date of Service: DATE: 06/16/21 TIME: 08:36 Chief Complaint Chief Complaint IMPRESSION Assessment/Plan Left lower extremity cellulitis failing outpatient therapy Acute electrolyte derangementhyponatremia, hypochloremia due to volume deplet ion ZACHERY due to vasomotor nephropathy Severe protein malnutrition Anemia of chronic disease Morbid Obesity, SEVERE History of atrial fibrillation History of CHF, diastolic dysfunction History of diabetes mellitus type 2 History of dyslipidemia MILD HYPOXIA SEPSIS POA OBSTIPATION, no bm x several days, will d/c iv morphine Admit to hospitalist service for further management Continue empiric IV antibiotics Strict I's and O's Avoid nephrotoxic agents IV electrolyte replacement Continue IV fluids Eliquis for DVT prophylaxis Protonix GI prophylaxis ADA diet CODE STATUS full Discussed with RN Disposition inpatient management as above DPOA: CXR TODAY Continue Zosyn and Zyvox Elevate left lower extremity. D/W RN Justifications for Admission Justifications for Admission Other Justification History of Present Illness History of Present Illness 71 year old male who was brought here by EMS from home due to left leg wound. Patient had this wound for years. Patient says he was at the detention for treatment, was discharged from the detention 1 month ago. He continues to have cellulitis of his left lower extremity, but the last 3-day is to have more blister and more drainage from the wound on left leg. Patient said he was in a lot of pain. Patient denies any cough or fever. Patient has history of diabetic, morbidly obese. Past Medical/Surgical History: PMH/PSH: Past Medical History: A-Fib, CAD, CHF, Diabetes-Type II, High Cholesterol, AL Past Surgical History: Angioplasty, Cholecystectomy, Pacemaker, ROTATOR CUFF,HERNIA,CARDIAC STENT Allergies: Allergies: Coded Allergies: vancomycin (Verified Allergy, Severe, Rash AND SOA, 11/23/19) I S O L A T I O N *CONTACT* (Verified Allergy, Unknown, 12/29/19) ESBL Family History: Family History: Reviewed with no relevant findings Social History: Social History: Smoking Status: Former Smoker Alcohol Use: None Drug Use: None Current Medications: Current Medications Current Medications Morphine Sulfate (Morphine Sulfate) 4 mg 1X ONCE IVP Last administered on 06/13/21at 12:50; Start 06/13/21 at 12:30; Stop 06/13/21 at 12:31; Status DC Piperacillin Sod/ Tazobactam Sod (Zosyn Per Pharmacy) 1 each PRN DAILY PRN MC SEE COMMENTS; Start 06/13/21 at 12:45; Status UNV Piperacillin Sod/ Tazobactam Sod 3.375 gm/Sodium Chloride 50 ml @ 100 mls/hr 1X ONCE IV Last administered on 06/13/21at 12:50; Start 06/13/21 at 12:45; Stop 06/13/21 at 13:14 Morphine Sulfate (Morphine Sulfate) 4 mg PRN Q2HR PRN IVP PAIN; Start 06/13/21 at 12:45; Stop 06/14/21 at 12:44 Active Scripts Active [Oxygen] 2 L DEJUAN CONT PRN Zyvox (Linezolid) 600 Mg Tablet 600 Mg PO BID 10 Days for two weeks. Started 04/01/21. Hydrocodone-Apap 7.5-325 (Hydrocodone Bit/Acetaminophen) 1 Tab Tablet 1 Tab PO PRN Q6HRS PRN 14 Days .. Polyethylene Glycol 3350 17 Gm Powd.pack 17 Gm PO PRN DAILY PRN 30 Days Klor-Con M20 (Potassium Chloride) 20 Meq Tab.er.prt 1 Tab PO DAILY 30 Days Metoprolol Tartrate 25 Mg Tablet 1 Tab PO BID Metformin Hcl 500 Mg Tablet 500 Mg PO BIDWMEALS 30 Days Eliquis (Apixaban) 5 Mg Tablet 5 Mg PO BID 30 Days Reported Diltiazem 24Hr Cd (Diltiazem HCl) 240 Mg Cap.er.24h 1 Cap PO DAILY Cephalexin 500 Mg Capsule 1 Cap PO QID Furosemide 40 Mg Tablet 1 Tab PO BID Duloxetine Hcl 30 Mg Capsule.dr 1 Cap PO DAILY 90 Days Gabapentin 300 Mg Capsule 1 Cap PO TID 90 Days Famotidine 20 Mg Tablet 20 Mg PO BID Novolog Flexpen (Insulin Aspart) 100 Unit/1 Ml Insuln.pen 15 Unit SQ TIDBFRMEAL Robaxin-750 (Methocarbamol) 750 Mg Tablet 500 Mg PO TID PRN PRN Aspir 81 (Aspirin) 81 Mg Tablet.dr 81 Mg PO DAILY Fenofibrate (Fenofibrate,Micronized) 134 Mg Capsule 134 Mg PO DAILY Atorvastatin Calcium 40 Mg Tablet 40 Mg PO HS Amiodarone Hcl 200 Mg Tablet 200 Mg PO DAILY ROS: Review of Systems Review of System REVIEW OF SYSTEMS: GENERAL: Denies weakness SKIN: No bruising, hair changes or rashes. EYES: No blurred, double or loss of vision. NOSE AND THROAT: No history of nosebleeds, hoarseness or sore throat. HEART: No history of palpitations, chest pain or shortness of breath on exertion. LUNGS: Denies cough, hemoptysis, wheezing or shortness of breath. GASTROINTESTINAL: Denies changes in appetite, nausea, vomiting, diarrhea or constipation. GENITOURINARY: No history of frequency, urgency, hesitancy or nocturia. NEUROLOGIC: Denies history of numbness, tingling, or tremor. PSYCHIATRIC: No history of panic, anxiety or depression. ENDOCRINE: No history of heat or cold intolerance, polyuria or polydipsia. EXTREMITIES: Left leg pain and redness 06-16 no bm x 4 days, will give fleets, d/c iv morphine, may be attributed to obstipation Continue Zosyn and Zyvox start micafungin Elevate left lower extremity. D/W COAT CHECK ATTENDANT LEFT ANKLE Vitals Vitals Vital Signs Date Time Temp Pulse Resp B/P (MAP) Pulse Ox O2 Delivery O2 Flow Rate FiO2 06/16/21 08:19 74 135/60 06/16/21 07:00 97.9 18 95 Nasal Cannula 2.0 97.9 Physical Exam Physical Exam GENERAL: Alert, oriented x 3, lying in bed complains of pain in the leg and back LAtter is chronic HEENT: Normocephalic, atraumatic. Anicteric. NECK: Supple. LUNGS: Clear bilaterally. No wheezing. HEART: S1, S2. ABDOMEN: Obese, soft, nontender, nondistended. No rebound or guarding. EXTREMITIES: Bilateral lower extremity lymphedema, venous stasis, redness with hyperpigmentation and chronic changes both lower extremities Left lower extremity redness warmth tenderness more than the right, few open wounds, no loss purulence MUSCULOSKELETAL: No joint swelling. No decrease in range of motion. CENTRAL NERVOUS SYSTEM: Alert, oriented x 3, grossly nonfocal. PSYCHIATRIC: Cooperative, calm. LINES: looks clean. General: Alert, Oriented X3, Cooperative, No acute distress, mild distress Heart: Regular rate, Normal S1, Normal S2 Lungs: Clear Abdomen: Normal bowel sounds, Soft, No tenderness, Other (no rebound) Extremities: No clubbing, No cyanosis, Other ( swelling and erythema with multiple open wounds) Labs LABS Exam Date: 03/28/2021 1:38 PM XR EXAM OF ANKLE_LEFT 3V Indication: Reason: LLE wound r/o osteo / Spl. Instructions: / History: . COMPARISON: December 27, 2019 FINDINGS/ IMPRESSION: There is diffuse soft tissue swelling. Ankle mortise is intact. Mild calcaneal enthesopathy is present. No osseous destructive changes are seen to confirm acute osteomyelitis, though sensitivity for osteomyelitis is limited on radiographs. No acute fracture or dislocation. Alignment and joint spaces are maintained. Electronically signed by: Arin Nowak MD (03/28/2021 2:10 PM) [facility] DICTATED and SIGNED BY: ARIN NOWAK MD DATE: 03/28/21 [id number] Laboratory Tests Test 06/15/21 20:46 06/16/21 07:12 Glucose (Fingerstick) 85 mg/dL (70-99) 110 mg/dL (70-99) Assessment and Plan Assessmemt and Plan Problems Medical Problems: (1) Left leg cellulitis Status: Acute Comment Review of Relevant I have reviewed the following items ashwini (where applicable) has been applied. Labs Laboratory Tests Test 06/14/21 11:19 06/14/21 15:50 06/14/21 17:45 06/14/21 17:47 Glucose (Fingerstick) 128 mg/dL (70-99) 144 mg/dL (70-99) Potassium Level 2.9 mmol/L (3.5-5.1) 3.3 mmol/L (3.5-5.1) Sodium Level 134 mmol/L (136-145) Chloride Level 95 mmol/L (98-107) Carbon Dioxide Level 32 mmol/L (21-32) Anion Gap 7 (6-14) Blood Urea Nitrogen 25 mg/dL (8-26) Creatinine 1.5 mg/dL (0.7-1.3) Estimated GFR (Cockcroft-Gault) 46.4 Glucose Level 152 mg/dL (70-99) Calcium Level 9.3 mg/dL (8.5-10.1) Test 06/15/21 05:45 9/28/21 07:31 06/15/21 20:46 06/16/21 07:12 White Blood Count 15.8 x10^3/uL (4.0-11.0) Red Blood Count 3.79 x10^6/uL (4.30-5.70) Hemoglobin 10.4 g/dL (13.0-17.5) Hematocrit 31.9 % (39.0-53.0) Mean Corpuscular Volume 84 fL (79-100) Mean Corpuscular Hemoglobin 27 pg (25-35) Mean Corpuscular Hemoglobin Concent 33 g/dL (31-37) Red Cell Distribution Width 18.0 % (11.5-14.5) Platelet Count 615 x10^3/uL (140-400) Neutrophils (%) (Auto) 84 % (31-73) Lymphocytes (%) (Auto) 8 % (24-48) Monocytes (%) (Auto) 6 % (0-9) Eosinophils (%) (Auto) 2 % (0-3) Basophils (%) (Auto) 0 % (0-3) Neutrophils # (Auto) 13.3 x10^3/uL (1.8-7.7) Lymphocytes # (Auto) 1.2 x10^3/uL (1.0-4.8) Monocytes # (Auto) 1.0 x10^3/uL (0.0-1.1) Eosinophils # (Auto) 0.3 x10^3/uL (0.0-0.7) Basophils # (Auto) 0.0 x10^3/uL (0.0-0.2) Sodium Level 134 mmol/L (136-145) Potassium Level 3.3 mmol/L (3.5-5.1) Chloride Level 96 mmol/L (98-107) Carbon Dioxide Level 31 mmol/L (21-32) Anion Gap 7 (6-14) Blood Urea Nitrogen 20 mg/dL (8-26) Creatinine 1.2 mg/dL (0.7-1.3) Estimated GFR (Cockcroft-Gault) 60.0 Glucose Level 101 mg/dL (70-99) Calcium Level 9.5 mg/dL (8.5-10.1) Magnesium Level 2.2 mg/dL (1.8-2.4) Glucose (Fingerstick) 122 mg/dL (70-99) 85 mg/dL (70-99) 110 mg/dL (70-99) Laboratory Tests Test 06/15/21 20:46 06/16/21 07:12 Glucose (Fingerstick) 85 mg/dL (70-99) 110 mg/dL (70-99) Medications Current Medications Morphine Sulfate (Morphine Sulfate) 4 mg 1X ONCE IVP Last administered on 06/13/21at 12:50; Start 06/13/21 at 12:30; Stop 06/13/21 at 12:31; Status DC Piperacillin Sod/ Tazobactam Sod (Zosyn Per Pharmacy) 1 each PRN DAILY PRN MC SEE COMMENTS; Start 06/13/21 at 12:45 Piperacillin Sod/ Tazobactam Sod 3.375 gm/Sodium Chloride 50 ml @ 100 mls/hr 1X ONCE IV Last administered on 06/13/21at 12:50; Start 06/13/21 at 12:45; Stop 06/13/21 at 13:14; Status DC Morphine Sulfate (Morphine Sulfate) 4 mg PRN Q2HR PRN IVP PAIN Last administered on 06/14/21at 10:10; Start 06/13/21 at 12:45; Stop 06/14/21 at 12:44; Status DC Hydromorphone HCl (Dilaudid) 2 mg 1X ONCE IVP Last administered on 06/13/21at 13:21; Start 06/13/21 at 13:15; Stop 06/13/21 at 13:16; Status DC Amiodarone HCl (Cordarone) 200 mg DAILY PO Last administered on 06/16/21at 08:17; Start 06/14/21 at 09:00 Apixaban (Eliquis) 5 mg BID PO Last administered on 06/15/21at 20:56; Start at 21:00 Aspirin (Ecotrin) 81 mg DAILY PO Last administered on 06/16/21at 08:17; Start 06/14/21 at 09:00 Atorvastatin Calcium (Lipitor) 40 mg HS PO Last administered on 06/15/21at 20:56; Start 06/13/21 at 21:00 Diltiazem HCl (Cardizem 24hr Cd) 240 mg DAILY PO Last administered on 06/16/21at 08:19; Start 06/14/21 at 09:00 Duloxetine HCl (Cymbalta) 30 mg DAILY PO Last administered on 06/16/21at 08:17; Start 06/14/21 at 09:00 Famotidine (Pepcid) 20 mg BID PO Last administered on 06/16/21at 08:18; Start 06/13/21 at 21:00 Fenofibrate (Lofibra) 134 mg DAILY PO Last administered on 06/15/21at 08:07; Start 06/14/21 at 09:00 Furosemide (Lasix) 40 mg BID94 PO ; Start 06/13/21 at 16:00; Stop 06/13/21 at 15:18; Status DC Gabapentin (Neurontin) 300 mg TID PO Last administered on 06/16/21at 08:17; Start 06/13/21 at 14:00 Acetaminophen/ Hydrocodone Bitart (Lortab 7.5/325) 1 tab PRN Q6HRS PRN PO MOD- SEVERE PAIN Last administered on 06/15/21at 20:56; Start 06/13/21 at 13:15 Linezolid (Zyvox) 600 mg BID PO Last administered on 06/16/21at 08:18; Start 06/13/21 at 21:00 Methocarbamol (Robaxin) 500 mg TID PRN PRN PO MUSCLE PAIN Last administered on 06/15/21at 20:56; Start 06/13/21 at 13:45 Metoprolol Tartrate (Lopressor) 25 mg BID PO Last administered on 06/16/21at 08:18; Start 06/13/21 at 21:00 Polyethylene Glycol (miraLAX PACKET) 17 gm PRN DAILY PRN PO CONSTIPATION, 1ST CHOICE; Start 06/13/21 at 13:15 Insulin Human Lispro (HumaLOG) 15 units TIDWMEALS SQ Last administered on 06/15/21at 17:04; Start 06/13/21 at 17:00 Sennosides (Senna) 17.2 mg PRN BID PRN PO CONSTIPATION, 2ND CHOICE; Start 06/13/21 at 13:15 Docusate Sodium (Colace) 100 mg PRN DAILY PRN PO HARD STOOLS; Start 06/13/21 at 13:15 Ondansetron HCl (Zofran) 4 mg PRN Q6HRS PRN IVP NAUSEA/VOMITING; Start 06/13/21 at 13:15 Insulin Human Lispro (HumaLOG) 0-7 UNITS TIDWMEALS SQ ; Start 06/13/21 at 17:00 Dextrose (Dextrose 50%-Water Syringe) 12.5 gm PRN Q15MIN PRN IV SEE COMMENTS; Start 06/13/21 at 13:15 Acetaminophen (Tylenol) 650 mg PRN Q4HRS PRN PO TEMP OVER 100.4F OR MILD PAIN; Start 06/13/21 at 13:15 Morphine Sulfate (Morphine Sulfate) 1 mg PRN Q1HR PRN IV PAIN Last administered on 06/15/21at 02:58; Start 06/13/21 at 13:15 Morphine Sulfate (Morphine Sulfate) 2 mg PRN Q2HR PRN IVP SEVERE PAIN 7-10 Last administered on 06/13/21at 19:20; Start 06/13/21 at 13:15; Stop 06/14/21 at 13:14; Status DC Prochlorperazine Edisylate (Compazine) 10 mg PRN Q6HRS PRN IV NAUSEA/VOMITING, 2ND CHOICE; Start 06/13/21 at 13:15 Piperacillin Sod/ Tazobactam Sod 3.375 gm/Sodium Chloride 50 ml @ 100 mls/hr Q6HRS IV Last administered on 06/16/21at 05:31; Start 06/13/21 at 18:00 Furosemide (Lasix) 40 mg 1X ONCE IVP Last administered on 06/13/21at 15:48; Start 06/13/21 at 15:30; Stop 06/13/21 at 15:31; Status DC Potassium Chloride (Klor-Con) 40 meq TIDWMEALS PO Last administered on 06/16/21at 08:18; Start 06/14/21 at 08:00 Magnesium Sulfate 50 ml @ 25 mls/hr 1X ONCE IV Last administered on 06/14/21at 06:40; Start 06/14/21 at 07:00; Stop 06/14/21 at 08:59; Status DC Potassium Chloride (Klor-Con) 40 meq 1X ONCE PO Last administered on 06/14/21at 12:44; Start 06/14/21 at 11:15; Stop 06/14/21 at 11:16; Status DC Info (Anti-Coagulation Monitoring By Pharmacy) 1 each PRN DAILY PRN MC PER PROTOCOL; Start 06/14/21 at 13:30 Lactobacillus Rhamnosus (Culturelle) 1 cap BID PO Last administered on 06/16/21at 08:18; Start 06/14/21 at 21:00 Lorazepam (Ativan) 0.5 mg PRN Q6HRS PRN PO ANXIETY / AGITATION Last administered on 06/16/21at 08:26; Start 06/15/21 at 07:45 Morphine Sulfate (Morphine Sulfate) 4 mg PRN Q4HRS PRN IV MODERATE TO SEVERE PAIN Last administered on 06/16/21at 04:17; Start 06/15/21 at 07:45 Multivitamins (Thera M Plus) 1 tab DAILY PO Last administered on 06/16/21at 08:18; Start 06/15/21 at 12:00 Ascorbic Acid (Vitamin C) 500 mg DAILY PO Last administered on 06/16/21at 08:18; Start 06/15/21 at 12:00 Micafungin Sodium 100 mg/Dextrose 100 ml @ 100 mls/hr Q24H IV ; Start 06/16/21 at 09:00 Active Scripts Active [Oxygen] 2 L DEJUAN CONT PRN Zyvox (Linezolid) 600 Mg Tablet 600 Mg PO BID 10 Days for two weeks. Started 04/01/21. Hydrocodone-Apap 7.5-325 (Hydrocodone Bit/Acetaminophen) 1 Tab Tablet 1 Tab PO PRN Q6HRS PRN 14 Days .. Polyethylene Glycol 3350 17 Gm Powd.pack 17 Gm PO PRN DAILY PRN 30 Days Klor-Con M20 (Potassium Chloride) 20 Meq Tab.er.prt 1 Tab PO DAILY 30 Days Metoprolol Tartrate 25 Mg Tablet 1 Tab PO BID Metformin Hcl 500 Mg Tablet 500 Mg PO BIDWMEALS 30 Days Eliquis (Apixaban) 5 Mg Tablet 5 Mg PO BID 30 Days Reported Diltiazem 24Hr Cd (Diltiazem HCl) 240 Mg Cap.er.24h 1 Cap PO DAILY Keflex (Cephalexin) 500 Mg Capsule 1 Cap PO QID Furosemide 40 Mg Tablet 1 Tab PO BID Duloxetine Hcl 30 Mg Capsule.dr 1 Cap PO DAILY 90 Days Gabapentin 300 Mg Capsule 1 Cap PO TID 90 Days Famotidine 20 Mg Tablet 20 Mg PO BID Novolog Flexpen (Insulin Aspart) 100 Unit/1 Ml Insuln.pen 15 Unit SQ TIDBFRMEAL Robaxin-750 (Methocarbamol) 750 Mg Tablet 500 Mg PO TID PRN PRN Aspir 81 (Aspirin) 81 Mg Tablet.dr 81 Mg PO DAILY Fenofibrate (Fenofibrate,Micronized) 134 Mg Capsule 134 Mg PO DAILY Atorvastatin Calcium 40 Mg Tablet 40 Mg PO HS Amiodarone Hcl 200 Mg Tablet 200 Mg PO DAILY Vitals/I & O Vital Sign - Last 24 Hours 06/15/21 06/15/21 06/15/21 06/15/21 08:48 08:51 11:00 15:00 Temp 98.9 97.9 98.9 97.9 Pulse 73 69 Resp 18 24 B/P (MAP) 137/62 (87) 112/55 (74) Pulse Ox 85 2 O2 Delivery Nasal Cannula Nasal Cannula Room Air Nasal Cannula O2 Flow Rate 2.0 06/15/21 06/15/21 06/15/21 06/15/21 16:49 17:33 19:15 20:00 Temp 98.9 98.9 Pulse 73 Resp 18 B/P (MAP) 114/57 (76) Pulse Ox 2 2 93 O2 Delivery Nasal Cannula Nasal Cannula Nasal Cannula Nasal Cannula O2 Flow Rate 2.0 2.0 2.0 2.0 06/15/21 06/15/21 06/15/21 06/15/21 20:56 20:56 21:26 23:07 Temp 98.8 98.8 Pulse 73 74 Resp 20 18 B/P (MAP) 114/57 123/66 (85) Pulse Ox 93 2 93 O2 Delivery Nasal Cannula Nasal Cannula Nasal Cannula O2 Flow Rate 2.0 2.0 06/16/21 06/16/21 06/16/21 06/16/21 00:41 01:11 03:02 04:17 Temp 97.5 97.5 Pulse 99 Resp 20 20 18 20 B/P (MAP) 135/72 (93) Pulse Ox 93 93 92 92 O2 Delivery Nasal Cannula Nasal Cannula Nasal Cannula Nasal Cannula O2 Flow Rate 2.0 2.0 2.0 2.0 06/16/21 06/16/21 06/16/21 06/16/21 07:00 08:17 08:18 08:19 Temp 97.9 97.9 Pulse 74 74 74 74 Resp 18 B/P (MAP) 135/60 (85) 135/60 135/60 135/60 Pulse Ox 95 O2 Delivery Nasal Cannula O2 Flow Rate 2.0 Intake and Output 06/15/21 06/15/21 06/16/21 15:00 23:00 07:00 Intake Total 200 ml Output Total 100 ml Balance -100 ml 200 ml Justicifation of Admission Dx: Justifications for Admission: Justification of Admission Dx: Yes CHF: Hemodynamic Instability Comminuty Aquired Pneumonia: Hypoxemia MAKENZIE TANG MD Jun 16, 2021 08:36
[2021-06-16] MEDS ORDERED: BISACODYL 10 MG SUPP.RECT. PR ONE (09:30)
[2021-06-16 09:37] LABS: GFR 74.1; MAGNESIUM 1.9 mg/dL (1.8-2.4); POTASSIUM 3.9 mmol/L (3.5-5.1)
[2021-06-16] MEDS: MICAFUNGIN 100 MG in IV DEXTROSE 5% 100ML 100 ML IV SCH (09:37)
[2021-06-16] MEDS: FENOFIBRATE,MICRONIZED 134 MG CAPSULE PO SCH (09:37)
[2021-06-16] MEDS ORDERED: SODIUM PHOSPHATES 19/7GM 133 ML ENEMA. PR ONE (09:45)
[2021-06-16] MEDS ORDERED: SODIUM PHOSPHATES 19/7GM 133 ML ENEMA. PR PRN (09:45)
[2021-06-16] MEDS: ANTI-COAG MONITOR BY PHARMACY. MC PRN (10:47)
[2021-06-16 11:00] VITALS: BP 118/51
[2021-06-16 12:14] LABS: BASO % 0 % (0-3); EOS # 0.3 x10^3/uL (0.0-0.7); EOS % 2 % (0-3); HEMATOCRIT 28.7 % (39.0-53.0); HEMOGLOBIN 9.4 g/dL (13.0-17.5); LYMPH # 1.2 x10^3/uL (1.0-4.8); LYMPH % 8 % (24-48); MEAN CORPUSCULAR HEMOGLOBIN 28 pg (25-35); MEAN CORPUSCULAR HGB CONC 33 g/dL (31-37); MEAN CORPUSCULAR VOLUME 84 fL (79-100); MONO # 1.2 x10^3/uL (0.0-1.1); MONO % 8 % (0-9); NEUT # 12.6 x10^3/uL (1.8-7.7); NEUT % 82 % (31-73); PLATELET COUNT 658 x10^3/uL (140-400); RED BLOOD COUNT 3.43 x10^6/uL (4.30-5.70); RED CELL DISTRIBUTION WIDTH 18.1 % (11.5-14.5); WHITE BLOOD COUNT 15.4 x10^3/uL (4.0-11.0)
[2021-06-16] MEDS: METHOCARBAMOL 500 MG TABLET PO PRN (13:24)
[2021-06-16] MEDS: HYDROcodone/APAP 7.5/325MG 1 TAB TABLET PO PRN ×2 (13:25→20:21)
[2021-06-16 14:34] LABS: % BASOS 1 % (0-3); % EOS 5 % (0-5); % LYMPHS 7 % (24-48); % MONOS 3 % (0-10); % SEGS 84 % (35-66); PLT ESTIMATE INCREASED (ADEQUATE)
[2021-06-16 14:35] LABS: ANISOCYTOSIS SLIGHT; POLYCHROMASIA SLIGHT
[2021-06-16 15:00] VITALS: BP 134/58
--- NOTE | 2021-06-16 16:02 | PDOC2 ---
CONSULT Date of Consult Date of Consult DATE: 06/16/21 TIME: 15:50 Reason for Consult Reason for Consult: Lower extremity ulcers Identification/Chief Complaint Chief Complaint cellulitis Problems: (1) Cellulitis of left lower extremity without foot (2) DM2 (diabetes mellitus, type 2) (3) Acute respiratory failure (4) CAD (coronary artery disease) (5) HLD (hyperlipidemia) (6) Morbid obesity (7) Acute on chronic diastolic (congestive) heart failure Source Source: Caregiver History of Present Illness Reason for Visit: Mr. Sellers is a 71-year-old male who is currently inpatient for heart failure exacerbation and bilateral lower extremity cellulitis. He is noted to have a history of lymphedema with chronic wounds of his bilateral lower extremities, which his daughter has been caring for for some time. She reports that his wounds improve and worsen as his lower extremity edema improves and worsens. She denies any history of claudication or rest pain for him. She denies any wounds on his feet bilaterally, endorsing only wounds on his legs. He underwent a duplex ultrasound of his bilateral lower extremity which demonstrated blunted waveforms in his tibial vessels and patency of his proximal vasculature. He is currently receiving vancomycin. Past Medical History Cardiovascular: AFIB, CAD, CHF, HTN, Hyperlipidemia, Other Pulmonary: No pertinent hx GI: No pertinent hx Psych: No pertinent hx Musculoskeletal: low back pain, Osteoarthritis Renal/: Chronic renal insuff, Benign prostatic enlarg., Other Endocrine: No pertinent hx Past Surgical History Past Surgical History: Pacemaker, Arthroscopy, Cholecystectomy, Hernia Repair, Other Family History Family History: Heart Disease Social History No ALCOHOL: none Drugs: None Lives: with Family Current Problem List Problem List Problems Medical Problems: (1) Left leg cellulitis Status: Acute Current Medications Current Medications Current Medications Morphine Sulfate (Morphine Sulfate) 4 mg 1X ONCE IVP Last administered on 06/13/21at 12:50; Start 06/13/21 at 12:30; Stop 06/13/21 at 12:31; Status DC Piperacillin Sod/ Tazobactam Sod (Zosyn Per Pharmacy) 1 each PRN DAILY PRN MC SEE COMMENTS; Start 06/13/21 at 12:45 Piperacillin Sod/ Tazobactam Sod 3.375 gm/Sodium Chloride 50 ml @ 100 mls/hr 1X ONCE IV Last administered on 06/13/21at 12:50; Start 06/13/21 at 12:45; Stop 06/13/21 at 13:14; Status DC Morphine Sulfate (Morphine Sulfate) 4 mg PRN Q2HR PRN IVP PAIN Last administered on 06/14/21at 10:10; Start 06/13/21 at 12:45; Stop 06/14/21 at 12:44; Status DC Hydromorphone HCl (Dilaudid) 2 mg 1X ONCE IVP Last administered on 06/13/21at 13:21; Start 06/13/21 at 13:15; Stop 06/13/21 at 13:16; Status DC Amiodarone HCl (Cordarone) 200 mg DAILY PO Last administered on 06/16/21at 08:17; Start 06/14/21 at 09:00 Apixaban (Eliquis) 5 mg BID PO Last administered on 06/16/21at 08:17; Start 06/13/21 at 21:00 Aspirin (Ecotrin) 81 mg DAILY PO Last administered on 06/16/21at 08:17; Start 06/14/21 at 09:00 Atorvastatin Calcium (Lipitor) 40 mg HS PO Last administered on 06/15/21at 20:56; Start 06/13/21 at 21:00 Diltiazem HCl (Cardizem 24hr Cd) 240 mg DAILY PO Last administered on 06/16/21at 08:19; Start 06/14/21 at 09:00 Duloxetine HCl (Cymbalta) 30 mg DAILY PO Last administered on 06/16/21at 08:17; Start 06/14/21 at 09:00 Famotidine (Pepcid) 20 mg BID PO Last administered on 06/16/21at 08:18; Start 06/13/21 at 21:00 Fenofibrate (Lofibra) 134 mg DAILY PO Last administered on 06/16/21at 09:37; Start 06/14/21 at 09:00 Furosemide (Lasix) 40 mg BID94 PO ; Start 06/13/21 at 16:00; Stop 06/13/21 at 15:18; Status DC Gabapentin (Neurontin) 300 mg TID PO Last administered on 06/16/21at 13:24; Start 06/13/21 at 14:00 Acetaminophen/ Hydrocodone Bitart (Lortab 7.5/325) 1 tab PRN Q6HRS PRN PO MOD- SEVERE PAIN Last administered on 06/16/21at 13:25; Start 06/13/21 at 13:15 Linezolid (Zyvox) 600 mg BID PO Last administered on 06/16/21at 08:18; Start 06/13/21 at 21:00 Methocarbamol (Robaxin) 500 mg TID PRN PRN PO MUSCLE PAIN Last administered on 06/16/21at 13:24; Start 06/13/21 at 13:45 Metoprolol Tartrate (Lopressor) 25 mg BID PO Last administered on 06/16/21at 08:18; Start 06/13/21 at 21:00 Polyethylene Glycol (miraLAX PACKET) 17 gm PRN DAILY PRN PO CONSTIPATION, 1ST CHOICE; Start 06/13/21 at 13:15 Insulin Human Lispro (HumaLOG) 15 units TIDWMEALS SQ Last administered on 06/15/21at 17:04; Start 06/13/21 at 17:00 Sennosides (Senna) 17.2 mg PRN BID PRN PO CONSTIPATION, 2ND CHOICE Last administered on 06/16/21at 09:37; Start 06/13/21 at 13:15 Docusate Sodium (Colace) 100 mg PRN DAILY PRN PO HARD STOOLS; Start 06/13/21 at 13:15 Ondansetron HCl (Zofran) 4 mg PRN Q6HRS PRN IVP NAUSEA/VOMITING; Start 06/13/21 at 13:15 Insulin Human Lispro (HumaLOG) 0-7 UNITS TIDWMEALS SQ ; Start 06/13/21 at 17:00 Dextrose (Dextrose 50%-Water Syringe) 12.5 gm PRN Q15MIN PRN IV SEE COMMENTS; Start 06/13/21 at 13:15 Acetaminophen (Tylenol) 650 mg PRN Q4HRS PRN PO TEMP OVER 100.4F OR MILD PAIN; Start 06/13/21 at 13:15 Morphine Sulfate (Morphine Sulfate) 1 mg PRN Q1HR PRN IV PAIN Last administered on 06/15/21at 02:58; Start 06/13/21 at 13:15; Stop 06/16/21 at 09:41; Status DC Morphine Sulfate (Morphine Sulfate) 2 mg PRN Q2HR PRN IVP SEVERE PAIN 7-10 Last administered on 06/13/21at 19:20; Start 06/13/21 at 13:15; Stop 06/14/21 at 13:14; Status DC Prochlorperazine Edisylate (Compazine) 10 mg PRN Q6HRS PRN IV NAUSEA/VOMITING, 2ND CHOICE; Start 06/13/21 at 13:15 Piperacillin Sod/ Tazobactam Sod 3.375 gm/Sodium Chloride 50 ml @ 100 mls/hr Q6HRS IV Last administered on 06/16/21at 12:16; Start 06/13/21 at 18:00 Furosemide (Lasix) 40 mg 1X ONCE IVP Last administered on 06/13/21at 15:48; Start 06/13/21 at 15:30; Stop 06/13/21 at 15:31; Status DC Potassium Chloride (Klor-Con) 40 meq TIDWMEALS PO Last administered on 06/16/21at 14:00; Start 06/14/21 at 08:00 Magnesium Sulfate 50 ml @ 25 mls/hr 1X ONCE IV Last administered on 06/14/21at 06:40; Start 06/14/21 at 07:00; Stop 06/14/21 at 08:59; Status DC Potassium Chloride (Klor-Con) 40 meq 1X ONCE PO Last administered on 06/14/21at 12:44; Start 06/14/21 at 11:15; Stop 06/14/21 at 11:16; Status DC Info (Anti-Coagulation Monitoring By Pharmacy) 1 each PRN DAILY PRN MC PER PROTOCOL Last administered on 06/16/21at 10:47; Start 06/14/21 at 13:30 Lactobacillus Rhamnosus (Culturelle) 1 cap BID PO Last administered on 06/16/21at 08:18; Start 06/14/21 at 21:00 Lorazepam (Ativan) 0.5 mg PRN Q6HRS PRN PO ANXIETY / AGITATION Last administered on 06/16/21at 08:26; Start 06/15/21 at 07:45 Morphine Sulfate (Morphine Sulfate) 4 mg PRN Q4HRS PRN IV MODERATE TO SEVERE PAIN Last administered on 06/16/21at 09:05; Start 06/15/21 at 07:45; Stop 06/16/21 at 09:41; Status DC Multivitamins (Thera M Plus) 1 tab DAILY PO Last administered on 06/16/21at 08:18; Start 06/15/21 at 12:00 Ascorbic Acid (Vitamin C) 500 mg DAILY PO Last administered on 06/16/21at 08:18; Start 06/15/21 at 12:00 Micafungin Sodium 100 mg/Dextrose 100 ml @ 100 mls/hr Q24H IV Last admin istered on 06/16/21at 09:37; Start 06/16/21 at 09:00 Bisacodyl (Dulcolax Supp) 10 mg 1X ONCE VA Last administered on 06/16/21at 09:37; Start 06/16/21 at 09:30; Stop 06/16/21 at 09:31; Status DC Sodium Monofluorophosphate (Fleet Adult) 133 ml DAILY PRN VA CONSTIPATION; Start 06/16/21 at 09:45 Sodium Monofluorophosphate (Fleet Adult) 133 ml 1X ONCE VA ; Start 06/16/21 at 09:45; Stop 06/16/21 at 09:46; Status DC Active Scripts Active [Oxygen] 2 L DEJUAN CONT PRN Zyvox (Linezolid) 600 Mg Tablet 600 Mg PO BID 10 Days for two weeks. Started 04/01/21. Hydrocodone-Apap 7.5-325 (Hydrocodone Bit/Acetaminophen) 1 Tab Tablet 1 Tab PO PRN Q6HRS PRN 14 Days .. Polyethylene Glycol 3350 17 Gm Powd.pack 17 Gm PO PRN DAILY PRN 30 Days Klor-Con M20 (Potassium Chloride) 20 Meq Tab.er.prt 1 Tab PO DAILY 30 Days Metoprolol Tartrate 25 Mg Tablet 1 Tab PO BID Metformin Hcl 500 Mg Tablet 500 Mg PO BIDWMEALS 30 Days Eliquis (Apixaban) 5 Mg Tablet 5 Mg PO BID 30 Days Reported Diltiazem 24Hr Cd (Diltiazem HCl) 240 Mg Cap.er.24h 1 Cap PO DAILY Keflex (Cephalexin) 500 Mg Capsule 1 Cap PO QID Furosemide 40 Mg Tablet 1 Tab PO BID Duloxetine Hcl 30 Mg Capsule.dr 1 Cap PO DAILY 90 Days Gabapentin 300 Mg Capsule 1 Cap PO TID 90 Days Famotidine 20 Mg Tablet 20 Mg PO BID Novolog Flexpen (Insulin Aspart) 100 Unit/1 Ml Insuln.pen 15 Unit SQ TIDBFRMEAL Robaxin-750 (Methocarbamol) 750 Mg Tablet 500 Mg PO TID PRN PRN Aspir 81 (Aspirin) 81 Mg Tablet.dr 81 Mg PO DAILY Fenofibrate (Fenofibrate,Micronized) 134 Mg Capsule 134 Mg PO DAILY Atorvastatin Calcium 40 Mg Tablet 40 Mg PO HS Amiodarone Hcl 200 Mg Tablet 200 Mg PO DAILY Allergies Allergies: Coded Allergies: vancomycin (Verified Allergy, Severe, Rash AND SOA, 11/23/19) I S O L A T I O N *CONTACT* (Verified Allergy, Unknown, 12/29/19) ESBL ROS General: No: Chills, Night Sweats, Fatigue, Malaise, Appetite, Other ALLERGY AND IMMUNOLOGY: No: Hives, Insect Bite Sensitivity, Itchy/Watery Eyes, Nasal Congestion, Post Nasal Drip, Seasonal Allergies, Other Hematological and Lymphatic: No: Bleeding Problems, Blood Clots, Blood Transfusions, Brusing, Night Sweats, Pallor, Swollen Lymph Nodes, Other Respiratory: YES: Orthopnea, Shortness of breath, SOB with excertion, Tachypnea ; No: Cough, Hemoptysis, Pleuritic Pain, Sputum Changes, Stridor, Wheezing, Other Cardiovascular: yes Palpitations, yes Orthopnea Gastrointestinal: No Nausea, No Vomiting, No Abdominal Pain, No Diarrhea, No Constipation, No Melena, No Hematochezia, No Other Musculoskeletal: Yes Gait Disturbance, Yes Muscle Pain, Yes Swelling In: Physical Exam General: Other (lethargic) HEENT: Atraumatic Lungs: Other (nonlabored respirations) Heart: Regular rate, Other (2+ DP, radial b/l, femoral not palpable due to body habitus) Abdomen: No tenderness Extremities: Other (2+ pitting edema BLE, superfical skin ulceration due to pressure injury on left posterior calf, medial BLE with superficial ulceration) Skin: Other (cellulitis with superficial ulceration of the medial aspect of LLE and lateral aspect of RLE) Vitals VITALS Vital Signs Date Time Temp Pulse Resp B/P (MAP) Pulse Ox O2 Delivery O2 Flow Rate FiO2 06/16/21 15:00 98.2 69 20 134/58 (83) 94 Nasal Cannula 2.0 98.2 Labs Labs Laboratory Tests Test 06/14/21 17:45 06/14/21 17:47 06/15/21 05:45 06/15/21 07:31 Sodium Level 134 mmol/L (136-145) 134 mmol/L (136-145) Potassium Level 3.3 mmol/L (3.5-5.1) 3.3 mmol/L (3.5-5.1) Chloride Level 95 mmol/L (98-107) 96 mmol/L (98-107) Carbon Dioxide Level 32 mmol/L (21-32) 31 mmol/L (21-32) Anion Gap 7 (6-14) 7 (6-14) Blood Urea Nitrogen 25 mg/dL (8-26) 20 mg/dL (8-26) Creatinine 1.5 mg/dL (0.7-1.3) 1.2 mg/dL (0.7-1.3) Estimated GFR (Cockcroft-Gault) 46.4 60.0 Glucose Level 152 mg/dL (70-99) 101 mg/dL (70-99) Calcium Level 9.3 mg/dL (8.5-10.1) 9.5 mg/dL (8.5-10.1) Glucose (Fingerstick) 144 mg/dL (70-99) 122 mg/dL (70-99) White Blood Count 15.8 x10^3/uL (4.0-11.0) Red Blood Count 3.79 x10^6/uL (4.30-5.70) Hemoglobin 10.4 g/dL (13.0-17.5) Hematocrit 31.9 % (39.0-53.0) Mean Corpuscular Volume 84 fL (79-100) Mean Corpuscular Hemoglobin 27 pg (25-35) Mean Corpuscular Hemoglobin Concent 33 g/dL (31-37) Red Cell Distribution Width 18.0 % (11.5-14.5) Platelet Count 615 x10^3/uL (140-400) Neutrophils (%) (Auto) 84 % (31-73) Lymphocytes (%) (Auto) 8 % (24-48) Monocytes (%) (Auto) 6 % (0-9) Eosinophils (%) (Auto) 2 % (0-3) Basophils (%) (Auto) 0 % (0-3) Neutrophils # (Auto) 13.3 x10^3/uL (1.8-7.7) Lymphocytes # (Auto) 1.2 x10^3/uL (1.0-4.8) Monocytes # (Auto) 1.0 x10^3/uL (0.0-1.1) Eosinophils # (Auto) 0.3 x10^3/uL (0.0-0.7) Basophils # (Auto) 0.0 x10^3/uL (0.0-0.2) Magnesium Level 2.2 mg/dL (1.8-2.4) Test 06/15/21 20:46 06/16/21 06:35 06/16/21 07:12 06/16/21 11:20 Glucose (Fingerstick) 85 mg/dL (70-99) 110 mg/dL (70-99) Sodium Level 136 mmol/L (136-145) Potassium Level 3.9 mmol/L (3.5-5.1) Chloride Level 99 mmol/L (98-107) Carbon Dioxide Level 29 mmol/L (21-32) Anion Gap 8 (6-14) Blood Urea Nitrogen 12 mg/dL (8-26) Creatinine 1.0 mg/dL (0.7-1.3) Estimated GFR (Cockcroft-Gault) 74.1 Glucose Level 105 mg/dL (70-99) Calcium Level 9.0 mg/dL (8.5-10.1) Magnesium Level 1.9 mg/dL (1.8-2.4) C-Reactive Protein, Quantitative 204.3 mg/L (0-3.3) Procalcitonin 0.29 ng/mL (0.00-0.10) White Blood Count 15.4 x10^3/uL (4.0-11.0) Red Blood Count 3.43 x10^6/uL (4.30-5.70) Hemoglobin 9.4 g/dL (13.0-17.5) Hematocrit 28.7 % (39.0-53.0) Mean Corpuscular Volume 84 fL (79-100) Mean Corpuscular Hemoglobin 28 pg (25-35) Mean Corpuscular Hemoglobin Concent 33 g/dL (31-37) Red Cell Distribution Width 18.1 % (11.5-14.5) Platelet Count 658 x10^3/uL (140-400) Neutrophils (%) (Auto) 82 % (31-73) Lymphocytes (%) (Auto) 8 % (24-48) Monocytes (%) (Auto) 8 % (0-9) Eosinophils (%) (Auto) 2 % (0-3) Basophils (%) (Auto) 0 % (0-3) Neutrophils # (Auto) 12.6 x10^3/uL (1.8-7.7) Lymphocytes # (Auto) 1.2 x10^3/uL (1.0-4.8) Monocytes # (Auto) 1.2 x10^3/uL (0.0-1.1) Eosinophils # (Auto) 0.3 x10^3/uL (0.0-0.7) Basophils # (Auto) 0.0 x10^3/uL (0.0-0.2) Segmented Neutrophils % 84 % (35-66) Lymphocytes % 7 % (24-48) Monocytes % 3 % (0-10) Eosinophils % 5 % (0-5) Basophils % 1 % (0-3) Platelet Estimate Increased (ADEQUATE) Polychromasia Slight Anisocytosis Slight Test 06/16/21 11:37 Glucose (Fingerstick) 129 mg/dL (70-99) Laboratory Tests Test 06/15/21 20:46 06/16/21 06:35 06/16/21 07:12 06/16/21 11:20 Glucose (Fingerstick) 85 mg/dL (70-99) 110 mg/dL (70-99) Sodium Level 136 mmol/L (136-145) Potassium Level 3.9 mmol/L (3.5-5.1) Chloride Level 99 mmol/L (98-107) Carbon Dioxide Level 29 mmol/L (21-32) Anion Gap 8 (6-14) Blood Urea Nitrogen 12 mg/dL (8-26) Creatinine 1.0 mg/dL (0.7-1.3) Estimated GFR (Cockcroft-Gault) 74.1 Glucose Level 105 mg/dL (70-99) Calcium Level 9.0 mg/dL (8.5-10.1) Magnesium Level 1.9 mg/dL (1.8-2.4) C-Reactive Protein, Quantitative 204.3 mg/L (0-3.3) Procalcitonin 0.29 ng/mL (0.00-0.10) White Blood Count 15.4 x10^3/uL (4.0-11.0) Red Blood Count 3.43 x10^6/uL (4.30-5.70) Hemoglobin 9.4 g/dL (13.0-17.5) Hematocrit 28.7 % (39.0-53.0) Mean Corpuscular Volume 84 fL (79-100) Mean Corpuscular Hemoglobin 28 pg (25-35) Mean Corpuscular Hemoglobin Concent 33 g/dL (31-37) Red Cell Distribution Width 18.1 % (11.5-14.5) Platelet Count 658 x10^3/uL (140-400) Neutrophils (%) (Auto) 82 % (31-73) Lymphocytes (%) (Auto) 8 % (24-48) Monocytes (%) (Auto) 8 % (0-9) Eosinophils (%) (Auto) 2 % (0-3) Basophils (%) (Auto) 0 % (0-3) Neutrophils # (Auto) 12.6 x10^3/uL (1.8-7.7) Lymphocytes # (Auto) 1.2 x10^3/uL (1.0-4.8) Monocytes # (Auto) 1.2 x10^3/uL (0.0-1.1) Eosinophils # (Auto) 0.3 x10^3/uL (0.0-0.7) Basophils # (Auto) 0.0 x10^3/uL (0.0-0.2) Segmented Neutrophils % 84 % (35-66) Lymphocytes % 7 % (24-48) Monocytes % 3 % (0-10) Eosinophils % 5 % (0-5) Basophils % 1 % (0-3) Platelet Estimate Increased (ADEQUATE) Polychromasia Slight Anisocytosis Slight Test 06/16/21 11:37 Glucose (Fingerstick) 129 mg/dL (70-99) Assessment/Plan Assessment/Plan Mr. Sellers is a 71-year-old male with heart failure, diabetes, cellulitis, and superficial ulceration of his bilateral lower extremities. Agree with treatment of his cellulitis and diuresis to reduce the edema in his bilateral lower extremities. Strongly recommend wrapping and elevating the bilateral lower extremities to improve wound healing. Would also have the wound care team evaluate his wounds to his bilateral lower extremities. While he does have some reduction in his arterial flow to his feet on duplex, his DP pulses are palpable bilaterally. I do not feel that he warrants arteriogram with possible intervention at this time given that his wounds improve when his lower extremity edema is controlled per his family. If his wounds failed to improve with conservative measures, we could consider an arteriogram and possible intervention in the future. This will be complicated due to the patient's body habitus and would likely require a upper extremity access. BEV RUST DO Jun 16, 2021 16:02
--- NOTE | 2021-06-16 16:39 | RAD ---
Exam: US DPLX ARTR EXTREM LOWER BILAT History: Peripheral vascular disease: Comparison: None. Technique: Grayscale, color, and spectral Doppler ultrasound images of the lower extremity arteries. Findings: Peak systolic velocities (cm/s) and waveforms in the lower extremities: Right: Common femoral artery: 134, triphasic Profunda femoris artery: 46, triphasic Proximal superficial femoral artery: 132, triphasic Mid superficial femoral artery: 107, triphasic Distal superficial femoral artery: 79, triphasic Popliteal artery: 110,, Posterior tibial artery: 83 proximal, 108 distally, triphasic Peroneal artery: Not visualized Anterior tibial artery: 32 monophasic Dorsalis pedis artery: 29, monophasic Left: Common femoral artery: 181, monophasic Profunda femoris artery: 69, monophasic Proximal superficial femoral artery: 203, monophasic Mid superficial femoral artery: 156, monophasic Distal superficial femoral artery: 188, monophasic Popliteal artery: 105, monophasic Posterior tibial artery: 77 proximally, 81 distally, monophasic Peroneal artery: Not visualized Anterior tibial artery: 53 monophasic Dorsalis pedis artery: 45, monophasic Impression: 1. Peripheral arterial disease in the left lower extremity with elevated velocities in the common fem oral and superficial femoral arteries suspicious for stenoses, and abnormal monophasic waveforms thro ughout the entire left lower extremity. 2. Abnormal monophasic waveforms in the right anterior tibial and dorsalis pedis arteries consistent peripheral arterial disease. No focal stenosis in the right lower extremity. 3. The bilateral peroneal arteries are not visualized. Electronically signed by: Jacinda Acosta MD (06/16/2021 4:37 PM) [id number]
--- NOTE | 2021-06-16 17:47 | RAD ---
EXAM: XR ABDOMEN 2V 06/16/2021 9:45 AM CLINICAL INDICATION: Pain COMPARISON: None TECHNIQUE: AP supine view the abdomen FINDINGS: Exam limited by underpenetration and body habitus. Bowel gas pattern is nonspecific and no nobstructive. Heart appears enlarged. There are left basilar opacities and a probable small left pleu ral effusion. A pacemaker lead is noted. There is lumbar degenerative disc disease. IMPRESSION: 1. Limited exam due to underpenetration and body habitus. 2. No definite bowel obstruction. 3. Mild cardiomegaly. Suspect left basilar opacities and small left pleural effusion. Electronically signed by: Jacinda Acosta MD (06/16/2021 5:44 PM) [id number]
--- NOTE | 2021-06-16 17:51 | RAD ---
EXAM: XR EXAM OF ANKLE_LEFT 3V 06/16/2021 10:12 AM CLINICAL INDICATION: Pain COMPARISON: Left ankle radiograph 03/28/2021 TECHNIQUE: 3 views of the left FINDINGS: No acute fracture or malalignment. Joint spaces are maintained. Ankle mortise is symmetric and talar dome is intact. There is diffuse subcutaneous edema. No soft tissue gas. IMPRESSION: No acute osseous abnormality. Diffuse soft tissue edema. Electronically signed by: Jacinda Acosta MD (06/16/2021 5:49 PM) [id number]
[2021-06-16] MEDS ORDERED: MORPHINE SULFATE 4 MG/ML INJ. IVP ONE (18:45)
[2021-06-16 19:00] VITALS: BP 120/56
[2021-06-16] MEDS: ATORVASTATIN CALCIUM 40 MG TABLET. PO SCH (20:22)
[2021-06-16] MEDS ORDERED: fentaNYL PF VIAL 100 MCG/2 ML VIAL IVP ONE (20:45)
--- NOTE | 2021-06-16 21:49 | NUR ---
Dr Jensen contacted and gave update regarding being agitated also complaining of pain, gave order one time dose of fentanyl, medication administered per order and patient rested and relieved for less than an hour ,patient resless again and asking for more pain medication. will monitor .
[2021-06-16 22:51] VITALS: BP 153/63
[2021-06-16] MEDS: MORPHINE SULFATE 2 MG/ML INJ. IVP PRN (22:53)
[2021-06-17 03:00] VITALS: BP 159/71
[2021-06-17] MEDS: MORPHINE SULFATE 2 MG/ML INJ. IVP PRN ×4 (03:16→19:25)
[2021-06-17] MEDS: PIPERACILLIN/TAZOBACTAM 3.375 GM in IV NORMAL SALINE 50ML 50 ML IV SCH ×3 (05:50→17:41)
[2021-06-17 07:34] LABS: BASO % 0 % (0-3); EOS # 0.2 x10^3/uL (0.0-0.7); EOS % 2 % (0-3); HEMOGLOBIN 9.6 g/dL (13.0-17.5); LYMPH # 1.1 x10^3/uL (1.0-4.8); LYMPH % 8 % (24-48); MEAN CORPUSCULAR HEMOGLOBIN 27 pg (25-35); MEAN CORPUSCULAR HGB CONC 32 g/dL (31-37); MEAN CORPUSCULAR VOLUME 85 fL (79-100); MONO % 7 % (0-9); NEUT # 12.1 x10^3/uL (1.8-7.7); NEUT % 84 % (31-73); PLATELET COUNT 767 x10^3/uL (140-400); RED BLOOD COUNT 3.53 x10^6/uL (4.30-5.70); RED CELL DISTRIBUTION WIDTH 17.9 % (11.5-14.5); WHITE BLOOD COUNT 14.5 x10^3/uL (4.0-11.0)
[2021-06-17 07:35] VITALS: BP 124/55
[2021-06-17 07:45] LABS: CALCIUM 8.9 mg/dL (8.5-10.1); CREATININE 1.1 mg/dL (0.7-1.3); GFR 66.4; POTASSIUM 4.7 mmol/L (3.5-5.1)
[2021-06-17] MEDS: MICAFUNGIN 100 MG in IV DEXTROSE 5% 100ML 100 ML IV SCH (07:55)
[2021-06-17] MEDS: METOPROLOL TART IMMED RELEASE 25 MG TABLET. PO SCH ×2 (07:55→21:00)
[2021-06-17] MEDS: MULTIVITAMIN with MINERAL TABLET. PO SCH (07:55)
[2021-06-17] MEDS: GABAPENTIN 300 MG CAPSULE. PO SCH ×3 (07:55→21:30)
[2021-06-17] MEDS: LACTOBACILLUS RHAMNOSUS GG 1 CAPSULE. PO SCH ×2 (07:55→21:29)
[2021-06-17] MEDS: FENOFIBRATE,MICRONIZED 134 MG CAPSULE PO SCH (07:55)
[2021-06-17] MEDS: APIXABAN 5 MG TABLET. PO SCH ×2 (07:55→21:29)
[2021-06-17] MEDS: ASCORBIC ACID 500 MG TABLET PO SCH (07:55)
[2021-06-17] MEDS: LINEZOLID 600 MG TABLET PO SCH ×2 (07:56→21:29)
[2021-06-17] MEDS: POTASSIUM CHLORIDE 20 MEQ TABLET.ER. PO SCH ×3 (07:56→17:00)
[2021-06-17] MEDS: FAMOTIDINE 20 MG TABLET. PO SCH ×2 (07:56→21:30)
[2021-06-17] MEDS: DULoxetine HCL 30 MG CAPSULE.DR PO SCH (07:56)
[2021-06-17] MEDS: AMIODARONE HCL 200 MG TABLET. PO SCH (07:57)
[2021-06-17] MEDS: ASPIRIN ENTERIC COATED 81 MG TABLET.DR. PO SCH (07:57)
[2021-06-17] MEDS: INSULIN LISPRO 300 UNITS/3 ML VIAL. SQ SCH ×6 (08:00→17:00)
--- NOTE | 2021-06-17 09:53 | PDOC ---
Infectious Disease Note Subjective: Subjective Patient initially was confused and answers simple question therefore was moaning with pain Once her daughter came he got more alert He states he is having severe abdominal pain for couple of days Had a BM yesterday Afebrile Vital Signs: Vital Signs Vital Signs Date Time Temp Pulse Resp B/P (MAP) Pulse Ox O2 Delivery O2 Flow Rate FiO2 06/17/21 08:54 20 06/17/21 08:00 Nasal Cannula 2.0 06/17/21 07:57 84 159/71 06/17/21 07:35 98.4 91 98.4 Physical Exam: PHYSICAL EXAM GENERAL: Alert, awake lying in bed mild distress HEENT: Normocephalic, atraumatic. Anicteric. NECK: Supple. LUNGS: Clear bilaterally. No wheezing. HEART: S1, S2. ABDOMEN: Obese, mild diffuse tenderness present, bowel sounds present, no guarding or rigidity EXTREMITIES: Bilateral lower extremity lymphedema, venous stasis, redness with hyperpigmentation and chronic changes both lower extremities Left lower extremity redness warmth tenderness more than the right, few open wounds, no loss purulence. Yeast present MUSCULOSKELETAL: No joint swelling. No decrease in range of motion. CENTRAL NERVOUS SYSTEM: Alert, oriented x 3, grossly nonfocal. PSYCHIATRIC: Cooperative, calm. LINES: looks clean. Medications: Inpatient Meds: Medications reviewed. Labs: Lab Laboratory Tests Test 06/16/21 11:20 06/16/21 11:37 06/16/21 16:36 06/16/21 19:55 White Blood Count 15.4 x10^3/uL (4.0-11.0) Red Blood Count 3.43 x10^6/uL (4.30-5.70) Hemoglobin 9.4 g/dL (13.0-17.5) Hematocrit 28.7 % (39.0-53.0) Mean Corpuscular Volume 84 fL (79-100) Mean Corpuscular Hemoglobin 28 pg (25-35) Mean Corpuscular Hemoglobin Concent 33 g/dL (31-37) Red Cell Distribution Width 18.1 % (11.5-14.5) Platelet Count 658 x10^3/uL (140-400) Neutrophils (%) (Auto) 82 % (31-73) Lymphocytes (%) (Auto) 8 % (24-48) Monocytes (%) (Auto) 8 % (0-9) Eosinophils (%) (Auto) 2 % (0-3) Basophils (%) (Auto) 0 % (0-3) Neutrophils # (Auto) 12.6 x10^3/uL (1.8-7.7) Lymphocytes # (Auto) 1.2 x10^3/uL (1.0-4.8) Monocytes # (Auto) 1.2 x10^3/uL (0.0-1.1) Eosinophils # (Auto) 0.3 x10^3/uL (0.0-0.7) Basophils # (Auto) 0.0 x10^3/uL (0.0-0.2) Segmented Neutrophils % 84 % (35-66) Lymphocytes % 7 % (24-48) Monocytes % 3 % (0-10) Eosinophils % 5 % (0-5) Basophils % 1 % (0-3) Platelet Estimate Increased (ADEQUATE) Polychromasia Slight Anisocytosis Slight Glucose (Fingerstick) 129 mg/dL (70-99) 130 mg/dL (70-99) 116 mg/dL (70-99) Test 06/17/21 07:04 White Blood Count 14.5 x10^3/uL (4.0-11.0) Red Blood Count 3.53 x10^6/uL (4.30-5.70) Hemoglobin 9.6 g/dL (13.0-17.5) Hematocrit 30.0 % (39.0-53.0) Mean Corpuscular Volume 85 fL (79-100) Mean Corpuscular Hemoglobin 27 pg (25-35) Mean Corpuscular Hemoglobin Concent 32 g/dL (31-37) Red Cell Distribution Width 17.9 % (11.5-14.5) Platelet Count 767 x10^3/uL (140-400) Neutrophils (%) (Auto) 84 % (31-73) Lymphocytes (%) (Auto) 8 % (24-48) Monocytes (%) (Auto) 7 % (0-9) Eosinophils (%) (Auto) 2 % (0-3) Basophils (%) (Auto) 0 % (0-3) Neutrophils # (Auto) 12.1 x10^3/uL (1.8-7.7) Lymphocytes # (Auto) 1.1 x10^3/uL (1.0-4.8) Monocytes # (Auto) 1.0 x10^3/uL (0.0-1.1) Eosinophils # (Auto) 0.2 x10^3/uL (0.0-0.7) Basophils # (Auto) 0.0 x10^3/uL (0.0-0.2) Sodium Level 135 mmol/L (136-145) Potassium Level 4.7 mmol/L (3.5-5.1) Chloride Level 100 mmol/L (98-107) Carbon Dioxide Level 27 mmol/L (21-32) Anion Gap 8 (6-14) Blood Urea Nitrogen 11 mg/dL (8-26) Creatinine 1.1 mg/dL (0.7-1.3) Estimated GFR (Cockcroft-Gault) 66.4 Glucose Level 123 mg/dL (70-99) Calcium Level 8.9 mg/dL (8.5-10.1) Objective: Assessment: 1. Left lower extremity cellulitis with underlying chronic venous in sufficiency. 2. Bilateral lower extremity venous insufficiency. 3. Morbid obesity. 4. Diabetes. 5. Leukocytosis. 6. Congestive heart failure, chronic. Constipation Plan: Plan of Care Continue Zosyn and Zyvox Continue micafungin CT abdomen and pelvis Elevate left lower extremity. Continue local wound care as directed Discussed with case management patient will not need long-term IV antibiotics if no other source of infection is identified during this hospitalization Management of abdominal pain and constipation per primary Trend WBC Local wound care Monitor labs and cultures Hold discharge today to facility Discussed with case management at length Discussed with Dr. Lozano Discussed with daughter .Discussed with ALDA ARREOLA MD Jun 17, 2021 09:53
--- NOTE | 2021-06-17 10:01 | PDOC ---
PROGRESS NOTES Date of Service: DATE: 06/17/21 TIME: 09:58 Chief Complaint Chief Complaint IMPRESSION Assessment/Plan Left lower extremity cellulitis failing outpatient therapy Acute electrolyte derangementhyponatremia, hypochloremia due to volume deplet ion ZACHERY due to vasomotor nephropathy Severe protein malnutrition Anemia of chronic disease Morbid Obesity, SEVERE History of atrial fibrillation History of CHF, diastolic dysfunction History of diabetes mellitus type 2 History of dyslipidemia MILD HYPOXIA SEPSIS POA OBSTIPATION, no bm x several days, will d/c iv morphine Admit to hospitalist service for further management Continue empiric IV antibiotics Strict I's and O's Avoid nephrotoxic agents IV electrolyte replacement Continue IV fluids Eliquis for DVT prophylaxis Protonix GI prophylaxis ADA diet CODE STATUS full Discussed with RN Disposition inpatient management as above DPOA: CXR TODAY Continue Zosyn and Zyvox Elevate left lower extremity. D/W RN Justifications for Admission Justifications for Admission Other Justification History of Present Illness History of Present Illness 71 year old male who was brought here by EMS from home due to left leg wound. Patient had this wound for years. Patient says he was at the detention for treatment, was discharged from the detention 1 month ago. He continues to have cellulitis of his left lower extremity, but the last 3-day is to have more blister and more drainage from the wound on left leg. Patient said he was in a lot of pain. Patient denies any cough or fever. Patient has history of diabetic, morbidly obese. Past Medical/Surgical History: PMH/PSH: Past Medical History: A-Fib, CAD, CHF, Diabetes-Type II, High Cholesterol, NV Past Surgical History: Angioplasty, Cholecystectomy, Pacemaker, ROTATOR CUFF,HERNIA,CARDIAC STENT Allergies: Allergies: Coded Allergies: vancomycin (Verified Allergy, Severe, Rash AND SOA, 11/23/19) I S O L A T I O N *CONTACT* (Verified Allergy, Unknown, 12/29/19) ESBL Family History: Family History: Reviewed with no relevant findings Social History: Social History: Smoking Status: Former Smoker Alcohol Use: None Drug Use: None Current Medications: Current Medications Current Medications Morphine Sulfate (Morphine Sulfate) 4 mg 1X ONCE IVP Last administered on 06/13/21at 12:50; Start 06/13/21 at 12:30; Stop 06/13/21 at 12:31; Status DC Piperacillin Sod/ Tazobactam Sod (Zosyn Per Pharmacy) 1 each PRN DAILY PRN MC SEE COMMENTS; Start 06/13/21 at 12:45; Status UNV Piperacillin Sod/ Tazobactam Sod 3.375 gm/Sodium Chloride 50 ml @ 100 mls/hr 1X ONCE IV Last administered on 06/13/21at 12:50; Start 06/13/21 at 12:45; Stop 06/13/21 at 13:14 Morphine Sulfate (Morphine Sulfate) 4 mg PRN Q2HR PRN IVP PAIN; Start 06/13/21 at 12:45; Stop 06/14/21 at 12:44 Active Scripts Active [Oxygen] 2 L DEJUAN CONT PRN Zyvox (Linezolid) 600 Mg Tablet 600 Mg PO BID 10 Days for two weeks. Started 04/01/21. Hydrocodone-Apap 7.5-325 (Hydrocodone Bit/Acetaminophen) 1 Tab Tablet 1 Tab PO PRN Q6HRS PRN 14 Days .. Polyethylene Glycol 3350 17 Gm Powd.pack 17 Gm PO PRN DAILY PRN 30 Days Klor-Con M20 (Potassium Chloride) 20 Meq Tab.er.prt 1 Tab PO DAILY 30 Days Metoprolol Tartrate 25 Mg Tablet 1 Tab PO BID Metformin Hcl 500 Mg Tablet 500 Mg PO BIDWMEALS 30 Days Eliquis (Apixaban) 5 Mg Tablet 5 Mg PO BID 30 Days Reported Diltiazem 24Hr Cd (Diltiazem HCl) 240 Mg Cap.er.24h 1 Cap PO DAILY Cephalexin 500 Mg Capsule 1 Cap PO QID Furosemide 40 Mg Tablet 1 Tab PO BID Duloxetine Hcl 30 Mg Capsule.dr 1 Cap PO DAILY 90 Days Gabapentin 300 Mg Capsule 1 Cap PO TID 90 Days Famotidine 20 Mg Tablet 20 Mg PO BID Novolog Flexpen (Insulin Aspart) 100 Unit/1 Ml Insuln.pen 15 Unit SQ TIDBFRMEAL Robaxin-750 (Methocarbamol) 750 Mg Tablet 500 Mg PO TID PRN PRN Aspir 81 (Aspirin) 81 Mg Tablet.dr 81 Mg PO DAILY Fenofibrate (Fenofibrate,Micronized) 134 Mg Capsule 134 Mg PO DAILY Atorvastatin Calcium 40 Mg Tablet 40 Mg PO HS Amiodarone Hcl 200 Mg Tablet 200 Mg PO DAILY ROS: Review of Systems Review of System REVIEW OF SYSTEMS: GENERAL: Denies weakness SKIN: No bruising, hair changes or rashes. EYES: No blurred, double or loss of vision. NOSE AND THROAT: No history of nosebleeds, hoarseness or sore throat. HEART: No history of palpitations, chest pain or shortness of breath on exertion. LUNGS: Denies cough, hemoptysis, wheezing or shortness of breath. GASTROINTESTINAL: Denies changes in appetite, nausea, vomiting, diarrhea or constipation. GENITOURINARY: No history of frequency, urgency, hesitancy or nocturia. NEUROLOGIC: Denies history of numbness, tingling, or tremor. PSYCHIATRIC: No history of panic, anxiety or depression. ENDOCRINE: No history of heat or cold intolerance, polyuria or polydipsia. EXTREMITIES: Left leg pain and redness 06-16 no bm x 4 days, will give fleets, d/c iv morphine, may be attributed to obstipation Continue Zosyn and Zyvox start micafungin Elevate left lower extremity. D/W SERVICES REP LEFT ANKLE 06-17 inc confusion, delerium Morphology of the liver may reflect chronic disease. , hepatic steatosis Ankle mortise is symmetric and talar dome is intact. diffuse subcutaneous edema. No soft tissue gas. x ray ankle MORE CONFUSED, D/W DR MCMULLEN will order ct head, neurology consult, continue iv antibiotics per dr Mcmullen, continued stay needed prn give fleets, d/c iv morphine, may be attributed to obstipation Continue Zosyn and Zyvox 06-17 ct head chronic small vessel ischemic disease as well as edema from acute etiology within the differential continue micafungin Elevate left lower extremity. D/W SERVICES REP LEFT ANKLE consult gi, nh4 33 min cc time Vitals Vitals Vital Signs Date Time Temp Pulse Resp B/P (MAP) Pulse Ox O2 Delivery O2 Flow Rate FiO2 06/17/21 08:54 20 06/17/21 08:00 Nasal Cannula 2.0 06/17/21 07:57 84 159/71 06/17/21 07:35 98.4 91 98.4 Physical Exam Physical Exam GENERAL: Alert, awake lying in bed mild distress HEENT: Normocephalic, atraumatic. Anicteric. NECK: Supple. LUNGS: Clear bilaterally. No wheezing. HEART: S1, S2. ABDOMEN: Obese, mild diffuse tenderness present, bowel sounds present, no guarding or rigidity EXTREMITIES: Bilateral lower extremity lymphedema, venous stasis, redness with hyperpigmentation and chronic changes both lower extremities Left lower extremity redness warmth tenderness more than the right, few open wounds, no loss purulence. Yeast present MUSCULOSKELETAL: No joint swelling. No decrease in range of motion. CENTRAL NERVOUS SYSTEM: Alert, oriented x 3, grossly nonfocal. PSYCHIATRIC: Cooperative, calm. LINES: looks clean. General: Cooperative, Other (lethargic) Heart: Regular rate, Other (2+ DP, radial b/l, femoral not palpable due to body habitus) Lungs: Clear Abdomen: No tenderness Extremities: Other (2+ pitting edema BLE, superfical skin ulceration due to pressure injury on left posterior calf, medial BLE with superficial ulceration) Skin: Other (cellulitis with superficial ulceration of the medial aspect of LLE and lateral aspect of RLE) Labs LABS INDICATION:71 years, Male, abdominal pain. TECHNIQUE: Axial CT images of the abdomen and pelvis were obtained. Coronal and sagittal reformatted performed. COMPARISON: CT dated 12/31/2018. Exposure: One or more of the following individualized dose reduction techniques were utilized for this examination: 1. Automated exposure control 2. Adjustment of the mA and/or kV according to patient size 3. Use of iterative reconstruction technique. FINDINGS: LOWER CHEST: Bibasilar subsegmental atelectasis. Borderline cardiomegaly. Pacemaker lead wires are partially visualized. ABDOMEN/PELVIS: Within the limitation of noncontrast exam, Enlarged left and caudate lobes. No suspicious focal hepatic lesion. Cholecystectomy. No biliary ductal dilation. Unremarkable spleen. Mildly pancreatic parenchymal atrophy with fat infiltration. Trace amount of peripancreatic fat stranding. No adrenal nodule. No hydronephrosis or nephrolithiasis in either kidney. Nonspecific bilateral perinephric fat stranding. Indeterminate 1.6 cm hypodense lesion exophytic from the lower pole right kidney, the Hounsfield unit of this lesion measures 36. This lesion is likely representing size since December 2016 which measures 1.2 cm. Stomach is decompressed which limits evaluation. No bowel obstruction or wall thickening. Few colonic diverticulosis without diverticulitis. Normal appendix. Normal caliber abdominal aorta, demonstrates mild to moderate aortoiliac atherosclerotic calcifications. No ascites or pneumoperitoneum. Unchanged prom inent to mildly enlarged left para-aortic and bilateral pelvic lymph nodes; the largest lymph node in the left paraortic region measures 1.6 cm in short axis. Unremarkable urinary bladder and prostate. No suspicious pelvic masses. MUSCULOSKELETAL: No suspicious osseous lesion or acute process. Multilevel degenerative changes in the lumbar spine. IMPRESSION: 1. Subtle peripancreatic fat stranding, nonspecific. Consider correlation with lipase level to exclude acute pancreatitis. 2. Indeterminate 1.6 cm hypodense lesion exophytic from the lower pole right kidney, slightly increasing in size since December 2018. Recommend further ev aluation with renal ultrasound. 3. Unchanged prominent to mildly enlarged left para-aortic and bilateral pelvic lymph nodes, nonspecific. 4. Morphology of the liver may reflect chronic disease. Clinical correlation is advised. Electronically signed by: Klarissa Mccain MD (06/17/2021 12:26 PM) [id number] DICTATED and SIGNED BY: KLARISSA MCCAIN MD DATE: 06/17/21 [id number] INDICATION: Reason: altered mentation / Spl. Instructions: / History: COMPARISON: None. TECHNIQUE: Axial CT images obtained through the head without intravenous contrast. One or more of the following individualized dose reduction techniques were utilized for this examination: 1. Automated exposure control; 2. Adjustment of the mA and/or kV according to patient size; 3. Use of iterative reconstruction technique. FINDINGS: Numerous foci of low density are seen throughout the white matter bilaterally. Prominence of ventricles and sulci which can be seen with age-related volume loss. No definite acute hemorrhage is seen. Prominent appearance of the basilar artery which appears prominent in size measuring up to about 7 mm with some fullness of the tip. This is not well evaluated on this noncontrast examination. Subcutaneous nodule at the right cheek measuring 14 mm. IMPRESSION: * There is large amount low density seen within white matter of the bilateral cerebral hemispheres. This is more than typically seen and possible causes include small vessel ischemic disease of unknown age with both gliosis from chronic small vessel ischemic disease as well as edema from acute etiology within the differential and if there is clinical concern for acute causes MRI could better assess acuity. * Fullness of the basilar artery is seen with calcific atherosclerosis. Can be seen with dolichoectasia of the basilar artery but not well evaluated on this noncontrast exam and basilar tip aneurysm is not excluded given the fullness in the region. If further evaluation is desired CT or MRI angiography could better assess. Electronically signed by: Radha Wing MD (06/17/2021 12:22 PM) DESKTOP- [id number] DICTATED and SIGNED BY: RADHA WING MD DATE: 06/17/21 [id number] 0 PATIENT: MALINDA LOPEZ ACCOUNT: [id number] : 1950 LOCATION: [address] [facility] AGE: 71 SEX: M EXAM STATUS: ADM IN ORD. PHYSICIAN: MAKENZIE TANG MD REASON: PAIN PROCEDURE: ANKLE LEFT 3V EXAM: XR EXAM OF ANKLE_LEFT 3V 06/16/2021 10:12 AM CLINICAL INDICATION: Pain COMPARISON: Left ankle radiograph 03/28/2021 TECHNIQUE: 3 views of the left FINDINGS: No acute fracture or malalignment. Joint spaces are maintained. Ankle mortise is symmetric and talar dome is intact. There is diffuse subcutaneous edema. No soft tissue gas. IMPRESSION: No acute osseous abnormality. Diffuse soft tissue edema. Electronically signed by: Jacinda Acosta MD (06/16/2021 5:49 PM) [id number] DICTATED and SIGNED BY: JACINDA ACOSTA MD DATE: 06/16/21 [id number] PATIENT: MALINDA LOPEZ ACCOUNT: [id number] : 1950 LOCATION: [address] [facility] AGE: 71 SEX: M EXAM STATUS: ADM IN ORD. PHYSICIAN: MAKENZIE TANG MD REASON: PVD PROCEDURE: DUPLEX LOWER EXTREMITY BILAT Exam: US DPLX ARTR EXTREM LOWER BILAT History: Peripheral vascular disease: Comparison: None. Technique: Grayscale, color, and spectral Doppler ultrasound images of the lower extremity arteries. Findings: Peak systolic velocities (cm/s) and waveforms in the lower extremities: Right: Common femoral artery: 134, triphasic Profunda femoris artery: 46, triphasic Proximal superficial femoral artery: 132, triphasic Mid superficial femoral artery: 107, triphasic Distal superficial femoral artery: 79, triphasic Popliteal artery: 110,, Posterior tibial artery: 83 proximal, 108 distally, triphasic Peroneal artery: Not visualized Anterior tibial artery: 32 monophasic Dorsalis pedis artery: 29, monophasic Left: Common femoral artery: 181, monophasic Profunda femoris artery: 69, monophasic Proximal superficial femoral artery: 203, monophasic Mid superficial femoral artery: 156, monophasic Distal superficial femoral artery: 188, monophasic Popliteal artery: 105, monophasic Posterior tibial artery: 77 proximally, 81 distally, monophasic Peroneal artery: Not visualized Anterior tibial artery: 53 monophasic Dorsalis pedis artery: 45, monophasic Impression: 1. Peripheral arterial disease in the left lower extremity with elevated velocities in the common femoral and superficial femoral arteries suspicious for stenoses, and abnormal monophasic waveforms throughout the entire left lower extremity. 2. Abnormal monophasic waveforms in the right anterior tibial and dorsalis pedis arteries consistent peripheral arterial disease. No focal stenosis in the right lower extremity. 3. The bilateral peroneal arteries are not visualized. Electronically signed by: Jacinda Acosta MD (06/16/2021 4:37 PM) [id number] Laboratory Tests Test 06/16/21 11:20 06/16/21 11:37 06/16/21 16:36 06/16/21 19:55 White Blood Count 15.4 x10^3/uL (4.0-11.0) Red Blood Count 3.43 x10^6/uL (4.30-5.70) Hemoglobin 9.4 g/dL (13.0-17.5) Hematocrit 28.7 % (39.0-53.0) Mean Corpuscular Volume 84 fL (79-100) Mean Corpuscular Hemoglobin 28 pg (25-35) Mean Corpuscular Hemoglobin Concent 33 g/dL (31-37) Red Cell Distribution Width 18.1 % (11.5-14.5) Platelet Count 658 x10^3/uL (140-400) Neutrophils (%) (Auto) 82 % (31-73) Lymphocytes (%) (Auto) 8 % (24-48) Monocytes (%) (Auto) 8 % (0-9) Eosinophils (%) (Auto) 2 % (0-3) Basophils (%) (Auto) 0 % (0-3) Neutrophils # (Auto) 12.6 x10^3/uL (1.8-7.7) Lymphocytes # (Auto) 1.2 x10^3/uL (1.0-4.8) Monocytes # (Auto) 1.2 x10^3/uL (0.0-1.1) Eosinophils # (Auto) 0.3 x10^3/uL (0.0-0.7) Basophils # (Auto) 0.0 x10^3/uL (0.0-0.2) Segmented Neutrophils % 84 % (35-66) Lymphocytes % 7 % (24-48) Monocytes % 3 % (0-10) Eosinophils % 5 % (0-5) Basophils % 1 % (0-3) Platelet Estimate Increased (ADEQUATE) Polychromasia Slight Anisocytosis Slight Glucose (Fingerstick) 129 mg/dL (70-99) 130 mg/dL (70-99) 116 mg/dL (70-99) Test 06/17/21 07:04 White Blood Count 14.5 x10^3/uL (4.0-11.0) Red Blood Count 3.53 x10^6/uL (4.30-5.70) Hemoglobin 9.6 g/dL (13.0-17.5) Hematocrit 30.0 % (39.0-53.0) Mean Corpuscular Volume 85 fL (79-100) Mean Corpuscular Hemoglobin 27 pg (25-35) Mean Corpuscular Hemoglobin Concent 32 g/dL (31-37) Red Cell Distribution Width 17.9 % (11.5-14.5) Platelet Count 767 x10^3/uL (140-400) Neutrophils (%) (Auto) 84 % (31-73) Lymphocytes (%) (Auto) 8 % (24-48) Monocytes (%) (Auto) 7 % (0-9) Eosinophils (%) (Auto) 2 % (0-3) Basophils (%) (Auto) 0 % (0-3) Neutrophils # (Auto) 12.1 x10^3/uL (1.8-7.7) Lymphocytes # (Auto) 1.1 x10^3/uL (1.0-4.8) Monocytes # (Auto) 1.0 x10^3/uL (0.0-1.1) Eosinophils # (Auto) 0.2 x10^3/uL (0.0-0.7) Basophils # (Auto) 0.0 x10^3/uL (0.0-0.2) Sodium Level 135 mmol/L (136-145) Potassium Level 4.7 mmol/L (3.5-5.1) Chloride Level 100 mmol/L (98-107) Carbon Dioxide Level 27 mmol/L (21-32) Anion Gap 8 (6-14) Blood Urea Nitrogen 11 mg/dL (8-26) Creatinine 1.1 mg/dL (0.7-1.3) Estimated GFR (Cockcroft-Gault) 66.4 Glucose Level 123 mg/dL (70-99) Calcium Level 8.9 mg/dL (8.5-10.1) Assessment and Plan Assessmemt and Plan Problems Medical Problems: (1) Left leg cellulitis Status: Acute Comment Review of Relevant I have reviewed the following items ashwini (where applicable) has been applied. Labs Laboratory Tests Test 06/15/21 20:46 06/16/21 06:35 06/16/21 07:12 06/16/21 11:20 Glucose (Fingerstick) 85 mg/dL (70-99) 110 mg/dL (70-99) Sodium Level 136 mmol/L (136-145) Potassium Level 3.9 mmol/L (3.5-5.1) Chloride Level 99 mmol/L (98-107) Carbon Dioxide Level 29 mmol/L (21-32) Anion Gap 8 (6-14) Blood Urea Nitrogen 12 mg/dL (8-26) Creatinine 1.0 mg/dL (0.7-1.3) Estimated GFR (Cockcroft-Gault) 74.1 Glucose Level 105 mg/dL (70-99) Calcium Level 9.0 mg/dL (8.5-10.1) Magnesium Level 1.9 mg/dL (1.8-2.4) C-Reactive Protein, Quantitative 204.3 mg/L (0-3.3) Procalcitonin 0.29 ng/mL (0.00-0.10) White Blood Count 15.4 x10^3/uL (4.0-11.0) Red Blood Count 3.43 x10^6/uL (4.30-5.70) Hemoglobin 9.4 g/dL (13.0-17.5) Hematocrit 28.7 % (39.0-53.0) Mean Corpuscular Volume 84 fL (79-100) Mean Corpuscular Hemoglobin 28 pg (25-35) Mean Corpuscular Hemoglobin Concent 33 g/dL (31-37) Red Cell Distribution Width 18.1 % (11.5-14.5) Platelet Count 658 x10^3/uL (140-400) Neutrophils (%) (Auto) 82 % (31-73) Lymphocytes (%) (Auto) 8 % (24-48) Monocytes (%) (Auto) 8 % (0-9) Eosinophils (%) (Auto) 2 % (0-3) Basophils (%) (Auto) 0 % (0-3) Neutrophils # (Auto) 12.6 x10^3/uL (1.8-7.7) Lymphocytes # (Auto) 1.2 x10^3/uL (1.0-4.8) Monocytes # (Auto) 1.2 x10^3/uL (0.0-1.1) Eosinophils # (Auto) 0.3 x10^3/uL (0.0-0.7) Basophils # (Auto) 0.0 x10^3/uL (0.0-0.2) Segmented Neutrophils % 84 % (35-66) Lymphocytes % 7 % (24-48) Monocytes % 3 % (0-10) Eosinophils % 5 % (0-5) Basophils % 1 % (0-3) Platelet Estimate Increased (ADEQUATE) Polychromasia Slight Anisocytosis Slight Test 06/16/21 11:37 06/16/21 16:36 06/16/21 19:55 06/17/21 07:04 Glucose (Fingerstick) 129 mg/dL (70-99) 130 mg/dL (70-99) 116 mg/dL (70-99) White Blood Count 14.5 x10^3/uL (4.0-11.0) Red Blood Count 3.53 x10^6/uL (4.30-5.70) Hemoglobin 9.6 g/dL (13.0-17.5) Hematocrit 30.0 % (39.0-53.0) Mean Corpuscular Volume 85 fL (79-100) Mean Corpuscular Hemoglobin 27 pg (25-35) Mean Corpuscular Hemoglobin Concent 32 g/dL (31-37) Red Cell Distribution Width 17.9 % (11.5-14.5) Platelet Count 767 x10^3/uL (140-400) Neutrophils (%) (Auto) 84 % (31-73) Lymphocytes (%) (Auto) 8 % (24-48) Monocytes (%) (Auto) 7 % (0-9) Eosinophils (%) (Auto) 2 % (0-3) Basophils (%) (Auto) 0 % (0-3) Neutrophils # (Auto) 12.1 x10^3/uL (1.8-7.7) Lymphocytes # (Auto) 1.1 x10^3/uL (1.0-4.8) Monocytes # (Auto) 1.0 x10^3/uL (0.0-1.1) Eosinophils # (Auto) 0.2 x10^3/uL (0.0-0.7) Basophils # (Auto) 0.0 x10^3/uL (0.0-0.2) Sodium Level 135 mmol/L (136-145) Potassium Level 4.7 mmol/L (3.5-5.1) Chloride Level 100 mmol/L (98-107) Carbon Dioxide Level 27 mmol/L (21-32) Anion Gap 8 (6-14) Blood Urea Nitrogen 11 mg/dL (8-26) Creatinine 1.1 mg/dL (0.7-1.3) Estimated GFR (Cockcroft-Gault) 66.4 Glucose Level 123 mg/dL (70-99) Calcium Level 8.9 mg/dL (8.5-10.1) Laboratory Tests Test 06/16/21 11:20 06/16/21 11:37 06/16/21 16:36 06/16/21 19:55 White Blood Count 15.4 x10^3/uL (4.0-11.0) Red Blood Count 3.43 x10^6/uL (4.30-5.70) Hemoglobin 9.4 g/dL (13.0-17.5) Hematocrit 28.7 % (39.0-53.0) Mean Corpuscular Volume 84 fL (79-100) Mean Corpuscular Hemoglobin 28 pg (25-35) Mean Corpuscular Hemoglobin Concent 33 g/dL (31-37) Red Cell Distribution Width 18.1 % (11.5-14.5) Platelet Count 658 x10^3/uL (140-400) Neutrophils (%) (Auto) 82 % (31-73) Lymphocytes (%) (Auto) 8 % (24-48) Monocytes (%) (Auto) 8 % (0-9) Eosinophils (%) (Auto) 2 % (0-3) Basophils (%) (Auto) 0 % (0-3) Neutrophils # (Auto) 12.6 x10^3/uL (1.8-7.7) Lymphocytes # (Auto) 1.2 x10^3/uL (1.0-4.8) Monocytes # (Auto) 1.2 x10^3/uL (0.0-1.1) Eosinophils # (Auto) 0.3 x10^3/uL (0.0-0.7) Basophils # (Auto) 0.0 x10^3/uL (0.0-0.2) Segmented Neutrophils % 84 % (35-66) Lymphocytes % 7 % (24-48) Monocytes % 3 % (0-10) Eosinophils % 5 % (0-5) Basophils % 1 % (0-3) Platelet Estimate Increased (ADEQUATE) Polychromasia Slight Anisocytosis Slight Glucose (Fingerstick) 129 mg/dL (70-99) 130 mg/dL (70-99) 116 mg/dL (70-99) Test 06/17/21 07:04 White Blood Count 14.5 x10^3/uL (4.0-11.0) Red Blood Count 3.53 x10^6/uL (4.30-5.70) Hemoglobin 9.6 g/dL (13.0-17.5) Hematocrit 30.0 % (39.0-53.0) Mean Corpuscular Volume 85 fL (79-100) Mean Corpuscular Hemoglobin 27 pg (25-35) Mean Corpuscular Hemoglobin Concent 32 g/dL (31-37) Red Cell Distribution Width 17.9 % (11.5-14.5) Platelet Count 767 x10^3/uL (140-400) Neutrophils (%) (Auto) 84 % (31-73) Lymphocytes (%) (Auto) 8 % (24-48) Monocytes (%) (Auto) 7 % (0-9) Eosinophils (%) (Auto) 2 % (0-3) Basophils (%) (Auto) 0 % (0-3) Neutrophils # (Auto) 12.1 x10^3/uL (1.8-7.7) Lymphocytes # (Auto) 1.1 x10^3/uL (1.0-4.8) Monocytes # (Auto) 1.0 x10^3/uL (0.0-1.1) Eosinophils # (Auto) 0.2 x10^3/uL (0.0-0.7) Basophils # (Auto) 0.0 x10^3/uL (0.0-0.2) Sodium Level 135 mmol/L (136-145) Potassium Level 4.7 mmol/L (3.5-5.1) Chloride Level 100 mmol/L (98-107) Carbon Dioxide Level 27 mmol/L (21-32) Anion Gap 8 (6-14) Blood Urea Nitrogen 11 mg/dL (8-26) Creatinine 1.1 mg/dL (0.7-1.3) Estimated GFR (Cockcroft-Gault) 66.4 Glucose Level 123 mg/dL (70-99) Calcium Level 8.9 mg/dL (8.5-10.1) Medications Current Medications Morphine Sulfate (Morphine Sulfate) 4 mg 1X ONCE IVP Last administered on at 12:50; Start 06/13/21 at 12:30; Stop 06/13/21 at 12:31; Status DC Piperacillin Sod/ Tazobactam Sod (Zosyn Per Pharmacy) 1 each PRN DAILY PRN MC SEE COMMENTS; Start 06/13/21 at 12:45 Piperacillin Sod/ Tazobactam Sod 3.375 gm/Sodium Chloride 50 ml @ 100 mls/hr 1X ONCE IV Last administered on 06/13/21at 12:50; Start 06/13/21 at 12:45; Stop 06/13/21 at 13:14; Status DC Morphine Sulfate (Morphine Sulfate) 4 mg PRN Q2HR PRN IVP PAIN Last administered on 06/14/21at 10:10; Start 06/13/21 at 12:45; Stop 06/14/21 at 12:44; Status DC Hydromorphone HCl (Dilaudid) 2 mg 1X ONCE IVP Last administered on 06/13/21at 13:21; Start 06/13/21 at 13:15; Stop 06/13/21 at 13:16; Status DC Amiodarone HCl (Cordarone) 200 mg DAILY PO Last administered on 06/17/21at 07:5 7; Start 06/14/21 at 09:00 Apixaban (Eliquis) 5 mg BID PO Last administered on 06/17/21at 07:55; Start 06/13/21 at 21:00 Aspirin (Ecotrin) 81 mg DAILY PO Last administered on 06/17/21at 07:57; Start 06/14/21 at 09:00 Atorvastatin Calcium (Lipitor) 40 mg HS PO Last administered on 06/16/21at 20:22; Start 06/13/21 at 21:00 Diltiazem HCl (Cardizem 24hr Cd) 240 mg DAILY PO Last administered on 06/17/21at 07:56; Start 06/14/21 at 09:00 Duloxetine HCl (Cymbalta) 30 mg DAILY PO Last administered on 06/17/21at 07:56; Start 06/14/21 at 09:00 Famotidine (Pepcid) 20 mg BID PO Last administered on 06/17/21at 07:56; Start 06/13/21 at 21:00 Fenofibrate (Lofibra) 134 mg DAILY PO Last administered on 06/17/21at 07:55; Start 06/14/21 at 09:00 Furosemide (Lasix) 40 mg BID94 PO ; Start 06/13/21 at 16:00; Stop 06/13/21 at 15:18; Status DC Gabapentin (Neurontin) 300 mg TID PO Last administered on 06/17/21at 07:55; Start 06/13/21 at 14:00 Acetaminophen/ Hydrocodone Bitart (Lortab 7.5/325) 1 tab PRN Q6HRS PRN PO MOD- SEVERE PAIN Last administered on 06/16/21at 20:21; Start 06/13/21 at 13:15 Linezolid (Zyvox) 600 mg BID PO Last administered on 9/30/21at 07:56; Start 06/13/21 at 21:00 Methocarbamol (Robaxin) 500 mg TID PRN PRN PO MUSCLE PAIN Last administered on 06/16/21at 13:24; Start 06/13/21 at 13:45 Metoprolol Tartrate (Lopressor) 25 mg BID PO Last administered on 06/17/21at 07:55; Start 06/13/21 at 21:00 Polyethylene Glycol (miraLAX PACKET) 17 gm PRN DAILY PRN PO CONSTIPATION, 1ST CHOICE; Start 06/13/21 at 13:15 Insulin Human Lispro (HumaLOG) 15 units TIDWMEALS SQ Last administered on 06/15/21at 17:04; Start 06/13/21 at 17:00 Sennosides (Senna) 17.2 mg PRN BID PRN PO CONSTIPATION, 2ND CHOICE Last administered on 06/16/21at 09:37; Start 06/13/21 at 13:15 Docusate Sodium (Colace) 100 mg PRN DAILY PRN PO HARD STOOLS; Start 06/13/21 at 13:15 Ondansetron HCl (Zofran) 4 mg PRN Q6HRS PRN IVP NAUSEA/VOMITING Last administered on 06/17/21at 03:16; Start 06/13/21 at 13:15 Insulin Human Lispro (HumaLOG) 0-7 UNITS TIDWMEALS SQ ; Start 06/13/21 at 17:00 Dextrose (Dextrose 50%-Water Syringe) 12.5 gm PRN Q15MIN PRN IV SEE COMMENTS; Start 06/13/21 at 13:15 Acetaminophen (Tylenol) 650 mg PRN Q4HRS PRN PO TEMP OVER 100.4F OR MILD PAIN; Start 06/13/21 at 13:15 Morphine Sulfate (Morphine Sulfate) 1 mg PRN Q1HR PRN IV PAIN Last administered on 06/15/21at 02:58; Start 06/13/21 at 13:15; Stop 06/16/21 at 09:41; Status DC Morphine Sulfate (Morphine Sulfate) 2 mg PRN Q2HR PRN IVP SEVERE PAIN 7-10 Last administered on 06/13/21at 19:20; Start 06/13/21 at 13:15; Stop 06/14/21 at 13:14; Status DC Prochlorperazine Edisylate (Compazine) 10 mg PRN Q6HRS PRN IV NAUSEA/VOMITING, 2ND CHOICE; Start 06/13/21 at 13:15 Piperacillin Sod/ Tazobactam Sod 3.375 gm/Sodium Chloride 50 ml @ 100 mls/hr Q6HRS IV Last administered on 06/17/21at 05:50; Start 06/13/21 at 18:00 Furosemide (Lasix) 40 mg 1X ONCE IVP Last administered on 06/13/21at 15:48; Start 06/13/21 at 15:30; Stop 06/13/21 at 15:31; Status DC Potassium Chloride (Klor-Con) 40 meq TIDWMEALS PO Last administered on 06/17/21at 07:56; Start 06/14/21 at 08:00 Magnesium Sulfate 50 ml @ 25 mls/hr 1X ONCE IV Last administered on 06/14/21at 06:40; Start 06/14/21 at 07:00; Stop 06/14/21 at 08:59; Status DC Potassium Chloride (Klor-Con) 40 meq 1X ONCE PO Last administered on 06/14/21at 12:44; Start 06/14/21 at 11:15; Stop 06/14/21 at 11:16; Status DC Info (Anti-Coagulation Monitoring By Pharmacy) 1 each PRN DAILY PRN MC PER PROTOCOL Last administered on 06/16/21at 10:47; Start 06/14/21 at 13:30 Lactobacillus Rhamnosus (Culturelle) 1 cap BID PO Last administered on 06/17/21at 07:55; Start 06/14/21 at 21:00 Lorazepam (Ativan) 0.5 mg PRN Q6HRS PRN PO ANXIETY / AGITATION Last administered on 06/16/21at 20:21; Start 06/15/21 at 07:45 Morphine Sulfate (Morphine Sulfate) 4 mg PRN Q4HRS PRN IV MODERATE TO SEVERE PAIN Last administered on 06/16/21at 09:05; Start 06/15/21 at 07:45; Stop 06/16/21 at 09:41; Status DC Multivitamins (Thera M Plus) 1 tab DAILY PO Last administered on 06/17/21at 07:55; Start 06/15/21 at 12:00 Ascorbic Acid (Vitamin C) 500 mg DAILY PO Last administered on 06/17/21at 07:55; Start 06/15/21 at 12:00 Micafungin Sodium 100 mg/Dextrose 100 ml @ 100 mls/hr Q24H IV Last administered on 06/17/21at 07:55; Start 06/16/21 at 09:00 Bisacodyl (Dulcolax Supp) 10 mg 1X ONCE AR Last administered on 06/16/21at 09:37; Start 06/16/21 at 09:30; Stop 06/16/21 at 09:31; Status DC Sodium Monofluorophosphate (Fleet Adult) 133 ml DAILY PRN AR CONSTIPATION; Start 06/16/21 at 09:45 Sodium Monofluorophosphate (Fleet Adult) 133 ml 1X ONCE AR ; Start 06/16/21 at 09:45; Stop 06/16/21 at 09:46; Status DC Morphine Sulfate (Morphine Sulfate) 2 mg PRN Q4HRS PRN IVP PAIN Last administered on 06/17/21at 07:54; Start 06/16/21 at 18:45 Morphine Sulfate (Morphine Sulfate) 4 mg 1X ONCE IVP Last administered on 06/16/21at 18:42; Start 06/16/21 at 18:45; Stop 06/16/21 at 18:46; Status DC Fentanyl Citrate (Fentanyl 2ml Vial) 50 mcg 1X ONCE IVP Last administered on 06/16/21at 20:54; Start 06/16/21 at 20:45; Stop 06/16/21 at 20:46; Status DC Active Scripts Active [Oxygen] 2 L DEJUAN CONT PRN Zyvox (Linezolid) 600 Mg Tablet 600 Mg PO BID 10 Days for two weeks. Started 04/01/21. Hydrocodone-Apap 7.5-325 (Hydrocodone Bit/Acetaminophen) 1 Tab Tablet 1 Tab PO PRN Q6HRS PRN 14 Days .. Polyethylene Glycol 3350 17 Gm Powd.pack 17 Gm PO PRN DAILY PRN 30 Days Klor-Con M20 (Potassium Chloride) 20 Meq Tab.er.prt 1 Tab PO DAILY 30 Days Metoprolol Tartrate 25 Mg Tablet 1 Tab PO BID Metformin Hcl 500 Mg Tablet 500 Mg PO BIDWMEALS 30 Days Eliquis (Apixaban) 5 Mg Tablet 5 Mg PO BID 30 Days Reported Diltiazem 24Hr Cd (Diltiazem HCl) 240 Mg Cap.er.24h 1 Cap PO DAILY Keflex (Cephalexin) 500 Mg Capsule 1 Cap PO QID Furosemide 40 Mg Tablet 1 Tab PO BID Duloxetine Hcl 30 Mg Capsule.dr 1 Cap PO DAILY 90 Days Gabapentin 300 Mg Capsule 1 Cap PO TID 90 Days Famotidine 20 Mg Tablet 20 Mg PO BID Novolog Flexpen (Insulin Aspart) 100 Unit/1 Ml Insuln.pen 15 Unit SQ TIDBFRMEAL Robaxin-750 (Methocarbamol) 750 Mg Tablet 500 Mg PO TID PRN PRN Aspir 81 (Aspirin) 81 Mg Tablet.dr 81 Mg PO DAILY Fenofibrate (Fenofibrate,Micronized) 134 Mg Capsule 134 Mg PO DAILY Atorvastatin Calcium 40 Mg Tablet 40 Mg PO HS Amiodarone Hcl 200 Mg Tablet 200 Mg PO DAILY Vitals/I & O Vital Sign - Last 24 Hours 06/16/21 06/16/21 06/16/21 06/16/21 11:00 13:25 14:43 15:00 Temp 98.0 98.2 98.0 98.2 Pulse 61 69 Resp 20 20 B/P (MAP) 118/51 (73) 134/58 (83) Pulse Ox 93 93 94 O2 Delivery Nasal Cannula Nasal Cannula Nasal Cannula Nasal Cannula O2 Flow Rate 2.0 2.0 2.0 2.0 06/16/21 06/16/21 06/16/21 06/16/21 18:42 19:00 19:12 20:00 Temp 98.0 98.0 Pulse 74 Resp 20 20 B/P (MAP) 120/56 (77) Pulse Ox 94 92 91 O2 Delivery Nasal Cannula Room Air Nasal Cannula Nasal Cannula O2 Flow Rate 2.0 2.0 2.0 06/16/21 06/16/21 06/16/21 06/16/21 20:21 20:22 20:51 20:54 Pulse 74 Resp 20 20 20 B/P (MAP) 120/56 Pulse Ox 92 90 92 O2 Delivery Nasal Cannula Nasal Cannula Nasal Cannula O2 Flow Rate 2.0 2.0 2.0 06/16/21 06/16/21 06/16/21 06/16/21 21:24 22:51 22:53 23:23 Temp 98.1 98.1 Pulse 76 Resp 20 20 20 B/P (MAP) 153/63 (93) Pulse Ox 91 90 90 91 O2 Delivery Room Air Nasal Cannula Nasal Cannula Nasal Cannula O2 Flow Rate 2.0 2.0 2.0 2.0 06/17/21 06/17/21 06/17/21 06/17/21 03:00 03:16 03:46 07:35 Temp 97.5 98.4 97.5 98.4 Pulse 84 95 Resp 20 20 20 20 B/P (MAP) 159/71 (100) 124/55 (78) Pulse Ox 92 91 91 91 O2 Delivery Nasal Cannula Nasal Cannula Nasal Cannula Nasal Cannula O2 Flow Rate 2.0 2.0 2.0 2.0 06/17/21 06/17/21 06/17/21 06/17/21 07:54 07:55 07:56 07:57 Pulse 84 84 84 B/P (MAP) 159/71 159/71 159/71 O2 Delivery Nasal Cannula O2 Flow Rate 2.0 06/17/21 06/17/21 08:00 08:54 Resp 20 O2 Delivery Nasal Cannula O2 Flow Rate 2.0 Intake and Output 06/16/21 06/16/21 06/17/21 15:00 23:00 07:00 Intake Total 0 ml 0 ml Balance 0 ml 0 ml Justicifation of Admission Dx: Justifications for Admission: Justification of Admission Dx: Yes CHF: Hemodynamic Instability Comminuty Aquired Pneumonia: Hypoxemia MAKENZIE TANG MD Jun 17, 2021 10:01
[2021-06-17] MEDS: HYDROcodone/APAP 7.5/325MG 1 TAB TABLET PO PRN ×2 (10:23→21:31)
[2021-06-17 11:05] VITALS: BP 109/67
[2021-06-17] MEDS: ANTI-COAG MONITOR BY PHARMACY. MC PRN (11:19)
--- NOTE | 2021-06-17 12:25 | RAD ---
INDICATION: Reason: altered mentation / Spl. Instructions: / History: COMPARISON: None. TECHNIQUE: Axial CT images obtained through the head without intravenous contrast. One or more of the following individualized dose reduction techniques were utilized for this examinat ion: 1. Automated exposure control; 2. Adjustment of the mA and/or kV according to patient size; 3 . Use of iterative reconstruction technique. FINDINGS: Numerous foci of low density are seen throughout the white matter bilaterally. Prominence of ventricles and sulci which can be seen with age-related volume loss. No definite acute hemorrhage is seen. Prominent appearance of the basilar artery which appears prominent in size measuring up to about 7 mm with some fullness of the tip. This is not well evaluated on this noncontrast examination. Subcutaneous nodule at the right cheek measuring 14 mm. IMPRESSION: * There is large amount low density seen within white matter of the bilateral cerebral hemispheres. This is more than typically seen and possible causes include small vessel ischemic disease of unknow n age with both gliosis from chronic small vessel ischemic disease as well as edema from acute etiolo gy within the differential and if there is clinical concern for acute causes MRI could better assess acuity. * Fullness of the basilar artery is seen with calcific atherosclerosis. Can be seen with dolichoecta jeromy of the basilar artery but not well evaluated on this noncontrast exam and basilar tip aneurysm is not excluded given the fullness in the region. If further evaluation is desired CT or MRI angiograph y could better assess. Electronically signed by: Faizan Hernandez MD (06/17/2021 12:22 PM) [id number]
--- NOTE | 2021-06-17 12:28 | RAD ---
EXAMINATION: CT abdomen and pelvis without IV contrast. INDICATION:71 years, Male, abdominal pain. TECHNIQUE: Axial CT images of the abdomen and pelvis were obtained. Coronal and sagittal reformatted performed. COMPARISON: CT dated 12/31/2018. Exposure: One or more of the following individualized dose reduction techniques were utilized for thi s examination: 1. Automated exposure control 2. Adjustment of the mA and/or kV according to patient size 3. Use of iterative reconstruction technique. FINDINGS: LOWER CHEST: Bibasilar subsegmental atelectasis. Borderline cardiomegaly. Pacemaker lead wires are partially visua lized. ABDOMEN/PELVIS: Within the limitation of noncontrast exam, Enlarged left and caudate lobes. No suspicious focal hepatic lesion. Cholecystectomy. No biliary duct al dilation. Unremarkable spleen. Mildly pancreatic parenchymal atrophy with fat infiltration. Trace amount of peripancreatic fat stranding. No adrenal nodule. No hydronephrosis or nephrolithiasis in ei ther kidney. Nonspecific bilateral perinephric fat stranding. Indeterminate 1.6 cm hypodense lesion e xophytic from the lower pole right kidney, the Hounsfield unit of this lesion measures 36. This lesio n is likely representing size since December 2016 which measures 1.2 cm. Stomach is decompressed which limits evaluation. No bowel obstruction or wall thickening. Few colonic diverticulosis without diverticulitis. Normal appendix. Normal caliber abdominal aorta, demonstrates mild to moderate aortoiliac atherosclerotic calcifications. No ascites or pneumoperitoneum. Unchange d prominent to mildly enlarged left para-aortic and bilateral pelvic lymph nodes; the largest lymph n ode in the left paraortic region measures 1.6 cm in short axis. Unremarkable urinary bladder and pros daley. No suspicious pelvic masses. MUSCULOSKELETAL: No suspicious osseous lesion or acute process. Multilevel degenerative changes in the lumbar spine. IMPRESSION: 1. Subtle peripancreatic fat stranding, nonspecific. Consider correlation with lipase level to exclud e acute pancreatitis. 2. Indeterminate 1.6 cm hypodense lesion exophytic from the lower pole right kidney, slightly increas ing in size since December 2018. Recommend further evaluation with renal ultrasound. 3. Unchanged prominent to mildly enlarged left para-aortic and bilateral pelvic lymph nodes, nonspeci fic. 4. Morphology of the liver may reflect chronic disease. Clinical correlation is advised. Electronically signed by: Elizabeth Mccain MD (06/17/2021 12:26 PM) [id number]
--- NOTE | 2021-06-17 13:17 | PDOC2 ---
NEUROLOGY CONSULT Date of Service DOS: DATE: 06/17/21 TIME: 13:00 Reason for Consult Reason for Consult: Altered mental status Referring Physician Referring Physician: Dr. Lozano Source Source: Caregiver (Daughter), Chart review History of Present Illness History of Present Illness The patient is a 71-year-old right-handed male admitted on 06/13 for left leg wound. This has been treated off and on for several years. During the hospital stay, he has been more confused. There is no history of dementia, stroke, seizure, or head injury. Past Medical History Cardiovascular: AFIB, CAD, CHF, HTN, [place], Hyperlipidemia Endocrine: Diabetes Past Surgical History Past Surgical History: Pacemaker, Cholecystectomy, Hernia Repair, Other (Angioplasty, rotator cuff) Family History Family History: No pertinent hx Social History Social History Ex-smoker, no tobacco, lives alone Current Medications Current Medications Current Medications Morphine Sulfate (Morphine Sulfate) 4 mg 1X ONCE IVP Last administered on 06/13/21at 12:50; Start 06/13/21 at 12:30; Stop 06/13/21 at 12:31; Status DC Piperacillin Sod/ Tazobactam Sod (Zosyn Per Pharmacy) 1 each PRN DAILY PRN MC SEE COMMENTS; Start 06/13/21 at 12:45 Piperacillin Sod/ Tazobactam Sod 3.375 gm/Sodium Chloride 50 ml @ 100 mls/hr 1X ONCE IV Last administered on 06/13/21at 12:50; Start 06/13/21 at 12:45; Stop 06/13/21 at 13:14; Status DC Morphine Sulfate (Morphine Sulfate) 4 mg PRN Q2HR PRN IVP PAIN Last administered on 06/14/21at 10:10; Start 06/13/21 at 12:45; Stop 06/14/21 at 12:44; Status DC Hydromorphone HCl (Dilaudid) 2 mg 1X ONCE IVP Last administered on 06/13/21at 13:21; Start 06/13/21 at 13:15; Stop 06/13/21 at 13:16; Status DC Amiodarone HCl (Cordarone) 200 mg DAILY PO Last administered on 06/17/21at 07:57; Start 06/14/21 at 09:00 Apixaban (Eliquis) 5 mg BID PO Last administered on 06/17/21at 07:55; Start 06/13/21 at 21:00 Aspirin (Ecotrin) 81 mg DAILY PO Last administered on 06/17/21 07:57; Start 06/14/21 at 09:00 Atorvastatin Calcium (Lipitor) 40 mg HS PO Last administered on 06/16/21at 20:22; Start 06/13/21 at 21:00 Diltiazem HCl (Cardizem 24hr Cd) 240 mg DAILY PO Last administered on 06/17/21 07:56; Start 06/14/21 at 09:00 Duloxetine HCl (Cymbalta) 30 mg DAILY PO Last administered on 06/17/21 07:56; Start 06/14/21 at 09:00 Famotidine (Pepcid) 20 mg BID PO Last administered on 06/17/21 07:56; Start 06/13/21 at 21:00 Fenofibrate (Lofibra) 134 mg DAILY PO Last administered on 06/17/21 07:55; Start 06/14/21 at 09:00 Furosemide (Lasix) 40 mg BID94 PO ; Start 06/13/21 at 16:00; Stop 06/13/21 at 15:18; Status DC Gabapentin (Neurontin) 300 mg TID PO Last administered on 06/17/21 07:55; Start 06/13/21 at 14:00 Acetaminophen/ Hydrocodone Bitart (Lortab 7.5/325) 1 tab PRN Q6HRS PRN PO MOD- SEVERE PAIN Last administered on 06/17/21at 10:23; Start 06/13/21 at 13:15 Linezolid (Zyvox) 600 mg BID PO Last administered on 06/17/21 07:56; Start 06/13/21 at 21:00 Methocarbamol (Robaxin) 500 mg TID PRN PRN PO MUSCLE PAIN Last administered on 06/16/21at 13:24; Start 06/13/21 at 13:45 Metoprolol Tartrate (Lopressor) 25 mg BID PO Last administered on 06/17/21 07:55; Start 06/13/21 at 21:00 Polyethylene Glycol (miraLAX PACKET) 17 gm PRN DAILY PRN PO CONSTIPATION, 1ST CHOICE; Start 06/13/21 at 13:15 Insulin Human Lispro (HumaLOG) 15 units TIDWMEALS SQ Last administered on 06/15/21at 17:04; Start 06/13/21 at 17:00 Sennosides (Senna) 17.2 mg PRN BID PRN PO CONSTIPATION, 2ND CHOICE Last administered on 06/16/21at 09:37; Start 06/13/21 at 13:15 Docusate Sodium (Colace) 100 mg PRN DAILY PRN PO HARD STOOLS; Start 06/13/21 at 13:15 Ondansetron HCl (Zofran) 4 mg PRN Q6HRS PRN IVP NAUSEA/VOMITING Last a dministered on 06/17/21at 03:16; Start 06/13/21 at 13:15 Insulin Human Lispro (HumaLOG) 0-7 UNITS TIDWMEALS SQ ; Start 06/13/21 at 17:00 Dextrose (Dextrose 50%-Water Syringe) 12.5 gm PRN Q15MIN PRN IV SEE COMMENTS; Start 06/13/21 at 13:15 Acetaminophen (Tylenol) 650 mg PRN Q4HRS PRN PO TEMP OVER 100.4F OR MILD PAIN; Start 06/13/21 at 13:15 Morphine Sulfate (Morphine Sulfate) 1 mg PRN Q1HR PRN IV PAIN Last administered on 06/15/21at 02:58; Start 06/13/21 at 13:15; Stop 06/16/21 at 09:41; Status DC Morphine Sulfate (Morphine Sulfate) 2 mg PRN Q2HR PRN IVP SEVERE PAIN 7-10 Last administered on 06/13/21at 19:20; Start 06/13/21 at 13:15; Stop 06/14/21 at 13:14; Status DC Prochlorperazine Edisylate (Compazine) 10 mg PRN Q6HRS PRN IV NAUSEA/VOMITING, 2ND CHOICE; Start 06/13/21 at 13:15 Piperacillin Sod/ Tazobactam Sod 3.375 gm/Sodium Chloride 50 ml @ 100 mls/hr Q6HRS IV Last administered on 06/17/21at 11:30; Start 06/13/21 at 18:00 Furosemide (Lasix) 40 mg 1X ONCE IVP Last administered on 06/13/21at 15:48; St art 06/13/21 at 15:30; Stop 06/13/21 at 15:31; Status DC Potassium Chloride (Klor-Con) 40 meq TIDWMEALS PO Last administered on 06/17/21at 11:31; Start 06/14/21 at 08:00 Magnesium Sulfate 50 ml @ 25 mls/hr 1X ONCE IV Last administered on 06/14/21at 06:40; Start 06/14/21 at 07:00; Stop 06/14/21 at 08:59; Status DC Potassium Chloride (Klor-Con) 40 meq 1X ONCE PO Last administered on 06/14/21at 12:44; Start 06/14/21 at 11:15; Stop 06/14/21 at 11:16; Status DC Info (Anti-Coagulation Monitoring By Pharmacy) 1 each PRN DAILY PRN MC PER PROTOCOL Last administered on 06/17/21 11:19; Start 06/14/21 at 13:30 Lactobacillus Rhamnosus (Culturelle) 1 cap BID PO Last administered on 06/17/21 07:55; Start 06/14/21 at 21:00 Lorazepam (Ativan) 0.5 mg PRN Q6HRS PRN PO ANXIETY / AGITATION Last administered on 06/16/21at 20:21; Start 06/15/21 at 07:45 Morphine Sulfate (Morphine Sulfate) 4 mg PRN Q4HRS PRN IV MODERATE TO SEVERE PAIN Last administered on 06/16/21at 09:05; Start 06/15/21 at 07:45; Stop 06/16/21 at 09:41; Status DC Multivitamins (Thera M Plus) 1 tab DAILY PO Last administered on 06/17/21at 07:55; Start 06/15/21 at 12:00 Ascorbic Acid (Vitamin C) 500 mg DAILY PO Last administered on 06/17/21at 07:55; Start 06/15/21 at 12:00 Micafungin Sodium 100 mg/Dextrose 100 ml @ 100 mls/hr Q24H IV Last administered on 06/17/21at 07:55; Start 06/16/21 at 09:00 Bisacodyl (Dulcolax Supp) 10 mg 1X ONCE AL Last administered on 06/16/21at 09:37; Start 06/16/21 at 09:30; Stop 06/16/21 at 09:31; Status DC Sodium Monofluorophosphate (Fleet Adult) 133 ml DAILY PRN AL CONSTIPATION; Start 06/16/21 at 09:45 Sodium Monofluorophosphate (Fleet Adult) 133 ml 1X ONCE AL ; Start 06/16/21 at 09:45; Stop 06/16/21 at 09:46; Status DC Morphine Sulfate (Morphine Sulfate) 2 mg PRN Q4HRS PRN IVP PAIN Last administered on 06/17/21at 07:54; Start 06/16/21 at 18:45 Morphine Sulfate (Morphine Sulfate) 4 mg 1X ONCE IVP Last administered on 06/16/21at 18:42; Start 06/16/21 at 18:45; Stop 06/16/21 at 18:46; Status DC Fentanyl Citrate (Fentanyl 2ml Vial) 50 mcg 1X ONCE IVP Last administered on 06/16/21at 20:54; Start 06/16/21 at 20:45; Stop 06/16/21 at 20:46; Status DC Active Scripts Active [Oxygen] 2 L DEJUAN CONT PRN Zyvox (Linezolid) 600 Mg Tablet 600 Mg PO BID 10 Days for two weeks. Started 04/01/21. Hydrocodone-Apap 7.5-325 (Hydrocodone Bit/Acetaminophen) 1 Tab Tablet 1 Tab PO PRN Q6HRS PRN 14 Days .. Polyethylene Glycol 3350 17 Gm Powd.pack 17 Gm PO PRN DAILY PRN 30 Days Klor-Con M20 (Potassium Chloride) 20 Meq Tab.er.prt 1 Tab PO DAILY 30 Days Metoprolol Tartrate 25 Mg Tablet 1 Tab PO BID Metformin Hcl 500 Mg Tablet 500 Mg PO BIDWMEALS 30 Days Eliquis (Apixaban) 5 Mg Tablet 5 Mg PO BID 30 Days Reported Diltiazem 24Hr Cd (Diltiazem HCl) 240 Mg Cap.er.24h 1 Cap PO DAILY Keflex (Cephalexin) 500 Mg Capsule 1 Cap PO QID Furosemide 40 Mg Tablet 1 Tab PO BID Duloxetine Hcl 30 Mg Capsule.dr 1 Cap PO DAILY 90 Days Gabapentin 300 Mg Capsule 1 Cap PO TID 90 Days Famotidine 20 Mg Tablet 20 Mg PO BID Novolog Flexpen (Insulin Aspart) 100 Unit/1 Ml Insuln.pen 15 Unit SQ TIDBFRMEAL Robaxin-750 (Methocarbamol) 750 Mg Tablet 500 Mg PO TID PRN PRN Aspir 81 (Aspirin) 81 Mg Tablet.dr 81 Mg PO DAILY Fenofibrate (Fenofibrate,Micronized) 134 Mg Capsule 134 Mg PO DAILY Atorvastatin Calcium 40 Mg Tablet 40 Mg PO HS Amiodarone Hcl 200 Mg Tablet 200 Mg PO DAILY Allergies Allergies: Coded Allergies: vancomycin (Verified Allergy, Severe, Rash AND SOA, 11/23/19) I S O L A T I O N *CONTACT* (Verified Allergy, Unknown, 12/29/19) ESBL ROS Review of System Negative for fever, chills, weight loss, shortness of breath, chest pain, indigestion, hematochezia, melena, and dysuria. Full 14-point review of systems is negative. Physical Exam Physical Examination General: Well-developed, well-nourished white male in no acute distress HEENT: Normocephalic andatraumatic. Temporal arteriespulsatile and nontender. Neck: Supple without bruit, no meningismus Musculoskeletal: Stability:see neurologic. Gait exam:see neurologic. Tone:see n eurologic.Strength:see neurologic. Neurological: Mental Status:intact, orientation, memory, attention span/concentration, la nguage, fund of knowledge normal. Cranial Nerves:Pupils equal and reactive to light, extraocular movements areintact, visual lacy are full to confrontation. Facial sensation is normal. There is no facial asymmetry. Vestibulo-ocular reflex is intact. Palate elevates and tongue protrudes in midline. All other cranial related problems are negative except as mentioned before.Reflexes:0-1+ and symmetric with flexor plantar responses. Motor:3/5 strength with normal tone and bulk. Coordination: not cooperative. Gait: Not tested. Sensory:Not very cooperative but I do detect a stocking loss Vitals VITALS Vital Signs Date Time Temp Pulse Resp B/P (MAP) Pulse Ox O2 Delivery O2 Flow Rate FiO2 06/17/21 11:05 98.5 71 22 109/67 (81) 91 Nasal Cannula 2.0 98.5 Labs Labs Laboratory Tests Test 06/15/21 20:46 06/16/21 06:35 06/16/21 07:12 06/16/21 11:20 Glucose (Fingerstick) 85 mg/dL (70-99) 110 mg/dL (70-99) Sodium Level 136 mmol/L (136-145) Potassium Level 3.9 mmol/L (3.5-5.1) Chloride Level 99 mmol/L (98-107) Carbon Dioxide Level 29 mmol/L (21-32) Anion Gap 8 (6-14) Blood Urea Nitrogen 12 mg/dL (8-26) Creatinine 1.0 mg/dL (0.7-1.3) Estimated GFR (Cockcroft-Gault) 74.1 Glucose Level 105 mg/dL (70-99) Calcium Level 9.0 mg/dL (8.5-10.1) Magnesium Level 1.9 mg/dL (1.8-2.4) C-Reactive Protein, Quantitative 204.3 mg/L (0-3.3) Procalcitonin 0.29 ng/mL (0.00-0.10) White Blood Count 15.4 x10^3/uL (4.0-11.0) Red Blood Count 3.43 x10^6/uL (4.30-5.70) Hemoglobin 9.4 g/dL (13.0-17.5) Hematocrit 28.7 % (39.0-53.0) Mean Corpuscular Volume 84 fL (79-100) Mean Corpuscular Hemoglobin 28 pg (25-35) Mean Corpuscular Hemoglobin Concent 33 g/dL (31-37) Red Cell Distribution Width 18.1 % (11.5-14.5) Platelet Count 658 x10^3/uL (140-400) Neutrophils (%) (Auto) 82 % (31-73) Lymphocytes (%) (Auto) 8 % (24-48) Monocytes (%) (Auto) 8 % (0-9) Eosinophils (%) (Auto) 2 % (0-3) Basophils (%) (Auto) 0 % (0-3) Neutrophils # (Auto) 12.6 x10^3/uL (1.8-7.7) Lymphocytes # (Auto) 1.2 x10^3/uL (1.0-4.8) Monocytes # (Auto) 1.2 x10^3/uL (0.0-1.1) Eosinophils # (Auto) 0.3 x10^3/uL (0.0-0.7) Basophils # (Auto) 0.0 x10^3/uL (0.0-0.2) Segmented Neutrophils % 84 % (35-66) Lymphocytes % 7 % (24-48) Monocytes % 3 % (0-10) Eosinophils % 5 % (0-5) Basophils % 1 % (0-3) Platelet Estimate Increased (ADEQUATE) Polychromasia Slight Anisocytosis Slight Test 06/16/21 11:37 06/16/21 16:36 06/16/21 19:55 06/17/21 07:04 Glucose (Fingerstick) 129 mg/dL (70-99) 130 mg/dL (70-99) 116 mg/dL (70-99) White Blood Count 14.5 x10^3/uL (4.0-11.0) Red Blood Count 3.53 x10^6/uL (4.30-5.70) Hemoglobin 9.6 g/dL (13.0-17.5) Hematocrit 30.0 % (39.0-53.0) Mean Corpuscular Volume 85 fL (79-100) Mean Corpuscular Hemoglobin 27 pg (25-35) Mean Corpuscular Hemoglobin Concent 32 g/dL (31-37) Red Cell Distribution Width 17.9 % (11.5-14.5) Platelet Count 767 x10^3/uL (140-400) Neutrophils (%) (Auto) 84 % (31-73) Lymphocytes (%) (Auto) 8 % (24-48) Monocytes (%) (Auto) 7 % (0-9) Eosinophils (%) (Auto) 2 % (0-3) Basophils (%) (Auto) 0 % (0-3) Neutrophils # (Auto) 12.1 x10^3/uL (1.8-7.7) Lymphocytes # (Auto) 1.1 x10^3/uL (1.0-4.8) Monocytes # (Auto) 1.0 x10^3/uL (0.0-1.1) Eosinophils # (Auto) 0.2 x10^3/uL (0.0-0.7) Basophils # (Auto) 0.0 x10^3/uL (0.0-0.2) Sodium Level 135 mmol/L (136-145) Potassium Level 4.7 mmol/L (3.5-5.1) Chloride Level 100 mmol/L (98-107) Carbon Dioxide Level 27 mmol/L (21-32) Anion Gap 8 (6-14) Blood Urea Nitrogen 11 mg/dL (8-26) Creatinine 1.1 mg/dL (0.7-1.3) Estimated GFR (Cockcroft-Gault) 66.4 Glucose Level 123 mg/dL (70-99) Calcium Level 8.9 mg/dL (8.5-10.1) Laboratory Tests Test 06/16/21 16:36 06/16/21 19:55 06/17/21 07:04 Glucose (Fingerstick) 130 mg/dL (70-99) 116 mg/dL (70-99) White Blood Count 14.5 x10^3/uL (4.0-11.0) Red Blood Count 3.53 x10^6/uL (4.30-5.70) Hemoglobin 9.6 g/dL (13.0-17.5) Hematocrit 30.0 % (39.0-53.0) Mean Corpuscular Volume 85 fL (79-100) Mean Corpuscular Hemoglobin 27 pg (25-35) Mean Corpuscular Hemoglobin Concent 32 g/dL (31-37) Red Cell Distribution Width 17.9 % (11.5-14.5) Platelet Count 767 x10^3/uL (140-400) Neutrophils (%) (Auto) 84 % (31-73) Lymphocytes (%) (Auto) 8 % (24-48) Monocytes (%) (Auto) 7 % (0-9) Eosinophils (%) (Auto) 2 % (0-3) Basophils (%) (Auto) 0 % (0-3) Neutrophils # (Auto) 12.1 x10^3/uL (1.8-7.7) Lymphocytes # (Auto) 1.1 x10^3/uL (1.0-4.8) Monocytes # (Auto) 1.0 x10^3/uL (0.0-1.1) Eosinophils # (Auto) 0.2 x10^3/uL (0.0-0.7) Basophils # (Auto) 0.0 x10^3/uL (0.0-0.2) Sodium Level 135 mmol/L (136-145) Potassium Level 4.7 mmol/L (3.5-5.1) Chloride Level 100 mmol/L (98-107) Carbon Dioxide Level 27 mmol/L (21-32) Anion Gap 8 (6-14) Blood Urea Nitrogen 11 mg/dL (8-26) Creatinine 1.1 mg/dL (0.7-1.3) Estimated GFR (Cockcroft-Gault) 66.4 Glucose Level 123 mg/dL (70-99) Calcium Level 8.9 mg/dL (8.5-10.1) Images Images Head CT: Numerous foci of low density are seen throughout the white matter bilaterally. Prominence of ventricles and sulci which can be seen with age-related volume loss. No definite acute hemorrhage is seen. Prominent appearance of the basilar artery which appears prominent in size measuring up to about 7 mm with some fullness of the tip. This is not well evaluated on this noncontrast examination. Subcutaneous nodule at the right cheek measuring 14 mm. IMPRESSION: * There is large amount low density seen within white matter of the bilateral cerebral hemispheres. This is more than typically seen and possible causes include small vessel ischemic disease of unknown age with both gliosis from chronic small vessel ischemic disease as well as edema from acute etiology within the differential and if there is clinical concern for acute causes MRI could better assess acuity. * Fullness of the basilar artery is seen with calcific atherosclerosis. Can be seen with dolichoectasia of the basilar artery but not well evaluated on this noncontrast exam and basilar tip aneurysm is not excluded given the fullness in the region. If further evaluation is desired CT or MRI angiography could better assess. Assessment/Plan Assessment/Plan Impression: Metabolic encephalopathy. CT findings noted, I do not think he has clinical ev idence of cerebral edema and there is no evidence of stroke, central nervous system infection, or ongoing seizure activity. Cellulitis, sepsis, hypoxia, leukocytosis, hyponatremia, acute kidney injury, anemia, morbid obesity History of atrial fibrillation, congestive heart failure, diabetes, dyslipidemia Recommendations: An MRI of the brain would be problematic with his pacemaker I do not think he needs a lumbar puncture Electroencephalogram will not help Treat medical diseases Discussed with patient's daughter Thank you for letting me help with the patient's care. YOHANNES BELLAMY MD Jun 17, 2021 13:17
[2021-06-17 15:13] VITALS: BP 109/76
--- NOTE | 2021-06-17 16:21 | PDOC2 ---
GI CONSULT Date of Service: DATE: 06/17/21 TIME: 16:10 Reason For Consult: abnormal CT HPI: HPI: 71 y/o male here for several days w/ LE cellulitis which is apparently a recurrent issue. Has been confused. No meaningful history from pt. Daughter Nirali mentions might have c/o abdominal pain a couple days ago. Not eating much - she thinks likely due to confusion. No GI concerns per nurse - mentions thrashing around in bed, gave suppository yesterday. Family is unaware of any chronic GI issues such as reflux, dysphagia, diarrhea, constipation, or bleeding. Specifically no liver or pancreas history. Pretty sure he had a colonoscopy at some point in the past. S/p cholecystectomy. PMH: PMH: A Fib, CAD, CHF, HTN, HLD, OA, BPH, CKD pacemaker, cholecystectomy, hernia repair, angioplasty, rotator cuff repair FH: Family History: No pertinent hx Social History: Smoke: No ALCOHOL: none Drugs: None ROS: unable to obtain Vitals: Vitals: Vital Signs Date Time Temp Pulse Resp B/P (MAP) Pulse Ox O2 Delivery O2 Flow Rate FiO2 06/17/21 15:35 90 Nasal Cannula 2.0 06/17/21 15:13 97.7 76 22 109/76 (87) 97.7 Labs: Labs: Laboratory Tests Test 06/16/21 16:36 06/16/21 19:55 06/17/21 07:04 Glucose (Fingerstick) 130 mg/dL (70-99) 116 mg/dL (70-99) White Blood Count 14.5 x10^3/uL (4.0-11.0) Red Blood Count 3.53 x10^6/uL (4.30-5.70) Hemoglobin 9.6 g/dL (13.0-17.5) Hematocrit 30.0 % (39.0-53.0) Mean Corpuscular Volume 85 fL (79-100) Mean Corpuscular Hemoglobin 27 pg (25-35) Mean Corpuscular Hemoglobin Concent 32 g/dL (31-37) Red Cell Distribution Width 17.9 % (11.5-14.5) Platelet Count 767 x10^3/uL (140-400) Neutrophils (%) (Auto) 84 % (31-73) Lymphocytes (%) (Auto) 8 % (24-48) Monocytes (%) (Auto) 7 % (0-9) Eosinophils (%) (Auto) 2 % (0-3) Basophils (%) (Auto) 0 % (0-3) Neutrophils # (Auto) 12.1 x10^3/uL (1.8-7.7) Lymphocytes # (Auto) 1.1 x10^3/uL (1.0-4.8) Monocytes # (Auto) 1.0 x10^3/uL (0.0-1.1) Eosinophils # (Auto) 0.2 x10^3/uL (0.0-0.7) Basophils # (Auto) 0.0 x10^3/uL (0.0-0.2) Sodium Level 135 mmol/L (136-145) Potassium Level 4.7 mmol/L (3.5-5.1) Chloride Level 100 mmol/L (98-107) Carbon Dioxide Level 27 mmol/L (21-32) Anion Gap 8 (6-14) Blood Urea Nitrogen 11 mg/dL (8-26) Creatinine 1.1 mg/dL (0.7-1.3) Estimated GFR (Cockcroft-Gault) 66.4 Glucose Level 123 mg/dL (70-99) Calcium Level 8.9 mg/dL (8.5-10.1) Allergies: Coded Allergies: vancomycin (Verified Allergy, Severe, Rash AND SOA, 11/23/19) I S O L A T I O N *CONTACT* (Verified Allergy, Unknown, 12/29/19) ESBL Medications: Current Medications Medications (Trade) Dose Ordered Sig/Lito Route PRN Reason Start Time Stop Time Status Last Admin Dose Admin Morphine Sulfate (Morphine Sulfate) 2 mg PRN Q4HRS PRN IVP PAIN 06/16/21 18:45 06/17/21 15:03 Morphine Sulfate (Morphine Sulfate) 4 mg 1X ONCE IVP 06/16/21 18:45 06/16/21 18:46 DC 06/16/21 18:42 Fentanyl Citrate (Fentanyl 2ml Vial) 50 mcg 1X ONCE IVP 06/16/21 20:45 06/16/21 20:46 DC 06/16/21 20:54 Imaging: Imaging: CT A/P IMPRESSION: 1. Subtle peripancreatic fat stranding, nonspecific. Consider correlation with lipase level to exclude acute pancreatitis. 2. Indeterminate 1.6 cm hypodense lesion exophytic from the lower pole right kidney, slightly increasing in size since December 2018. Recommend further evaluation with renal ultrasound. 3. Unchanged prominent to mildly enlarged left para-aortic and bilateral pelvic lymph nodes, nonspecific. 4. Morphology of the liver may reflect chronic disease. Clinical correlation is advised. Head CT IMPRESSION: * There is large amount low density seen within white matter of the bilateral cerebral hemispheres. This is more than typically seen and possible causes i nclude small vessel ischemic disease of unknown age with both gliosis from chronic small vessel ischemic disease as well as edema from acute etiology within the differential and if there is clinical concern for acute causes MRI could better assess acuity. * Fullness of the basilar artery is seen with calcific atherosclerosis. Can be seen with dolichoectasia of the basilar artery but not well evaluated on this noncontrast exam and basilar tip aneurysm is not excluded given the fullness in the region. If further evaluation is desired CT or MRI angiography could better assess. LE Duplex Impression: 1. Peripheral arterial disease in the left lower extremity with elevated velocities in the common femoral and superficial femoral arteries suspicious for stenoses, and abnormal monophasic waveforms throughout the entire left lower extremity. 2. Abnormal monophasic waveforms in the right anterior tibial and dorsalis pedis arteries consistent peripheral arterial disease. No focal stenosis in the right lower extremity. 3. The bilateral peroneal arteries are not visualized. Ankle X-Ray IMPRESSION: No acute osseous abnormality. Diffuse soft tissue edema. Abd X-Ray IMPRESSION: 1. Limited exam due to underpenetration and body habitus. 2. No definite bowel obstruction. 3. Mild cardiomegaly. Suspect left basilar opacities and small left pleural effusion. CXR IMPRESSION: 1. No definite acute abnormality. 2. Unchanged cardiomegaly and prominent pulmonary vascularity. 3. Left lung base is partially obscured due to body habitus/superimposed soft tissue, unchanged from multiple prior exams. PE: GEN: appears chronically ill HEENT: Atraumatic, PERRL LUNGS: CTAB anteriorly HEART: RRR ABD: morbidly obese, non-tender, NABS EXTREMITY/SKIN: BLE wrapped NEURO/PSYCH: lethargic, says shailesh, eventually able to tell me the year is 2020 A/P: A/P: LE cellulitis, encephalopathy Leukocytosis, chronic anemia Abnormal CT - subtle peripancreatic fat stranding, question on chronic liver disease ?abd pain ?constipation CRC screen - family reports past colonoscopy Diverticulosis COVID negative BMI 53.8 -- Check ammonia. Further recs pending this result. ELLEN NAVARRO Jun 17, 2021 16:21
[2021-06-17 19:24] VITALS: BP 148/35
[2021-06-17] MEDS: ATORVASTATIN CALCIUM 40 MG TABLET. PO SCH (21:29)
[2021-06-17] MEDS: METHOCARBAMOL 500 MG TABLET PO PRN (22:41)
[2021-06-17] MEDS: LORazepam 0.5 MG TABLET PO PRN (22:41)
[2021-06-17 23:04] VITALS: BP 123/75
[2021-06-18] MEDS: PIPERACILLIN/TAZOBACTAM 3.375 GM in IV NORMAL SALINE 50ML 50 ML IV SCH ×4 (00:42→17:24)
[2021-06-18 03:11] VITALS: BP 126/76
[2021-06-18] MEDS: MORPHINE SULFATE 2 MG/ML INJ. IVP PRN ×3 (05:00→20:39)
--- NOTE | 2021-06-18 05:00 | NUR ---
Walked into patient room to administer Morphine, Patient was found bending over the recliner across the room from his bed. Confused, disoriented, dyspneic. Assisted to bed with use of lift w/ Bonita and Garrick. Bed alarm engaged. Call light back in hand. FSBS 144.
[2021-06-18 07:33] LABS: BASO % 0 % (0-3); EOS # 0.4 x10^3/uL (0.0-0.7); EOS % 3 % (0-3); HEMATOCRIT 33.3 % (39.0-53.0); HEMOGLOBIN 10.7 g/dL (13.0-17.5); LYMPH # 1.1 x10^3/uL (1.0-4.8); LYMPH % 8 % (24-48); MEAN CORPUSCULAR HEMOGLOBIN 27 pg (25-35); MEAN CORPUSCULAR HGB CONC 32 g/dL (31-37); MEAN CORPUSCULAR VOLUME 85 fL (79-100); MONO # 0.9 x10^3/uL (0.0-1.1); MONO % 7 % (0-9); NEUT % 81 % (31-73); PLATELET COUNT 735 x10^3/uL (140-400); RED BLOOD COUNT 3.92 x10^6/uL (4.30-5.70); RED CELL DISTRIBUTION WIDTH 18.5 % (11.5-14.5); WHITE BLOOD COUNT 13.5 x10^3/uL (4.0-11.0)
[2021-06-18 08:00] VITALS: BP 100/69
[2021-06-18] MEDS: INSULIN LISPRO 300 UNITS/3 ML VIAL. SQ SCH ×6 (08:00→17:00)
[2021-06-18 08:05] LABS: ALBUMIN 2.5 g/dL (3.4-5.0); ALBUMIN/GLOBULIN RATIO 0.5 (1.0-1.7); CALCIUM 9.3 mg/dL (8.5-10.1); CREATININE 0.9 mg/dL (0.7-1.3); GFR 83.7; POTASSIUM 4.8 mmol/L (3.5-5.1); TOTAL BILIRUBIN 0.5 mg/dL (0.2-1.0); TOTAL PROTEIN 7.1 g/dL (6.4-8.2)
[2021-06-18] MEDS: HYDROcodone/APAP 7.5/325MG 1 TAB TABLET PO PRN ×3 (08:18→22:21)
[2021-06-18] MEDS: ASPIRIN ENTERIC COATED 81 MG TABLET.DR. PO SCH (08:18)
[2021-06-18] MEDS: GABAPENTIN 300 MG CAPSULE. PO SCH ×3 (08:18→20:33)
[2021-06-18] MEDS: FAMOTIDINE 20 MG TABLET. PO SCH ×2 (08:19→20:33)
[2021-06-18] MEDS: LINEZOLID 600 MG TABLET PO SCH ×2 (08:21→20:33)
[2021-06-18] MEDS: FENOFIBRATE,MICRONIZED 134 MG CAPSULE PO SCH (08:21)
[2021-06-18] MEDS: APIXABAN 5 MG TABLET. PO SCH ×2 (08:21→20:33)
[2021-06-18] MEDS: DULoxetine HCL 30 MG CAPSULE.DR PO SCH (08:21)
[2021-06-18] MEDS: MULTIVITAMIN with MINERAL TABLET. PO SCH (08:22)
[2021-06-18] MEDS: LACTOBACILLUS RHAMNOSUS GG 1 CAPSULE. PO SCH ×2 (08:22→20:33)
[2021-06-18] MEDS: ASCORBIC ACID 500 MG TABLET PO SCH (08:22)
[2021-06-18] MEDS: POTASSIUM CHLORIDE 20 MEQ TABLET.ER. PO SCH ×3 (08:23→16:39)
[2021-06-18] MEDS: MICAFUNGIN 100 MG in IV DEXTROSE 5% 100ML 100 ML IV SCH (08:25)
--- NOTE | 2021-06-18 08:27 | PDOC ---
Infectious Disease Note Subjective: Subjective Follow-up for bilateral lower extremity cellulitis CT abdomen and pelvis reviewed CT head noted Interim events noted Remains afebrile Patient is comfortable today States abdominal pain is under control Vital Signs: Vital Signs Vital Signs Date Time Temp Pulse Resp B/P (MAP) Pulse Ox O2 Delivery O2 Flow Rate FiO2 06/18/21 05:42 20 Nasal Cannula 2.0 06/18/21 03:11 97.8 88 126/76 (93) 93 97.8 Physical Exam: PHYSICAL EXAM GENERAL: Alert, awake lying in bed in nad HEENT: Normocephalic, atraumatic. Anicteric. NECK: Supple. LUNGS: Clear bilaterally. No wheezing. HEART: S1, S2. ABDOMEN: Obese, mild diffuse tenderness present, bowel sounds present, no guarding or rigidity EXTREMITIES: Bilateral lower extremity lymphedema, venous stasis, redness with hyperpigmentation and chronic changes both lower extremities Left lower extremity redness warmth tenderness more than the right, few open wounds, no loss purulence. Yeast present MUSCULOSKELETAL: No joint swelling. No decrease in range of motion. CENTRAL NERVOUS SYSTEM: Alert, oriented x 3, grossly nonfocal. PSYCHIATRIC: Cooperative, calm. LINES: looks clean. Medications: Inpatient Meds: Medications reviewed. Labs: Lab Laboratory Tests Test 06/17/21 20:37 06/17/21 21:20 06/18/21 05:22 06/18/21 06:45 Glucose (Fingerstick) 97 mg/dL (70-99) 144 mg/dL (70-99) Ammonia < 10 mcmol/L (11-34) White Blood Count 13.5 x10^3/uL (4.0-11.0) Red Blood Count 3.92 x10^6/uL (4.30-5.70) Hemoglobin 10.7 g/dL (13.0-17.5) Hematocrit 33.3 % (39.0-53.0) Mean Corpuscular Volume 85 fL (79-100) Mean Corpuscular Hemoglobin 27 pg (25-35) Mean Corpuscular Hemoglobin Concent 32 g/dL (31-37) Red Cell Distribution Width 18.5 % (11.5-14.5) Platelet Count 735 x10^3/uL (140-400) Neutrophils (%) (Auto) 81 % (31-73) Lymphocytes (%) (Auto) 8 % (24-48) Monocytes (%) (Auto) 7 % (0-9) Eosinophils (%) (Auto) 3 % (0-3) Basophils (%) (Auto) 0 % (0-3) Neutrophils # (Auto) 11.0 x10^3/uL (1.8-7.7) Lymphocytes # (Auto) 1.1 x10^3/uL (1.0-4.8) Monocytes # (Auto) 0.9 x10^3/uL (0.0-1.1) Eosinophils # (Auto) 0.4 x10^3/uL (0.0-0.7) Basophils # (Auto) 0.0 x10^3/uL (0.0-0.2) Sodium Level 138 mmol/L (136-145) Potassium Level 4.8 mmol/L (3.5-5.1) Chloride Level 100 mmol/L (98-107) Carbon Dioxide Level 24 mmol/L (21-32) Anion Gap 14 (6-14) Blood Urea Nitrogen 11 mg/dL (8-26) Creatinine 0.9 mg/dL (0.7-1.3) Estimated GFR (Cockcroft-Gault) 83.7 BUN/Creatinine Ratio 12 (6-20) Glucose Level 116 mg/dL (70-99) Calcium Level 9.3 mg/dL (8.5-10.1) Total Bilirubin 0.5 mg/dL (0.2-1.0) Aspartate Amino Transf (AST/SGOT) 22 U/L (15-37) Alanine Aminotransferase (ALT/SGPT) 24 U/L (16-63) Alkaline Phosphatase 79 U/L (46-116) Total Protein 7.1 g/dL (6.4-8.2) Albumin 2.5 g/dL (3.4-5.0) Albumin/Globulin Ratio 0.5 (1.0-1.7) Test 06/18/21 07:28 Glucose (Fingerstick) 116 mg/dL (70-99) Objective: Assessment: 1. Left lower extremity cellulitis with underlying chronic venous insufficiency. 2. Bilateral lower extremity venous insufficiency. 3. Morbid obesity. 4. Diabetes. 5. Leukocytosis. 6. Congestive heart failure, chronic. Constipation Metabolic encephalopathy with abnormal CT head Abnormal CT abdomen and pelvis with peripancreatic stranding and diffuse lymphadenopathy Plan: Plan of Care Management of abnormal CT abdomen and pelvis per primary Neurology evaluating patient Continue Zosyn and Zyvox for now, transition to p.o. soon Continue micafungin for now, will discontinue on discharge Elevate left lower extremity. Continue local wound care as directed Discussed with case management patient will not need long-term IV antibiotics if no other source of infection is identified during this hospitalization Management of abdominal pain and constipation and abnormal CT head per primary Trend WBC, consider hematology consult Local wound care Monitor labs and cultures Discussed with son at bedside ALDA SAMUELS MD Jun 18, 2021 08:27
[2021-06-18] MEDS: AMIODARONE HCL 200 MG TABLET. PO SCH (08:35)
[2021-06-18] MEDS: METOPROLOL TART IMMED RELEASE 25 MG TABLET. PO SCH ×2 (08:36→20:34)
--- NOTE | 2021-06-18 08:47 | PDOC ---
PROGRESS NOTES Date of Service DATE: 06/18/21 TIME: 08:44 Assessment Problems Medical Problems: (1) Left leg cellulitis Status: Acute Metabolic encephalopathy, better. He is more alert, but is having more pain Diabetic neuropathy. CT findings noted, I do not think he has clinical evidence of cerebral edema and there is no evidence of stroke, central nervous system infection, or ongoing seizure activity. Cellulitis, sepsis, hypoxia, leukocytosis, hyponatremia, acute kidney injury, anemia, morbid obesity History of atrial fibrillation, congestive heart failure, diabetes, dyslipidemia Plan Given improvement, hold on further neurological testing Treat medical diseases Pain control, we may need to accept some altered mental status to achieve this I discussed with patient's daughter Subjective Complains of left leg pain Objective Vital Signs Date Time Temp Pulse Resp B/P (MAP) Pulse Ox O2 Delivery O2 Flow Rate FiO2 06/18/21 08:36 80 100/69 06/18/21 08:18 Nasal Cannula 3.0 06/18/21 08:00 97.5 18 93 97.5 Intake and Output 06/18/21 07:00 Intake Total 480 ml Balance 480 ml Intake Oral 480 ml # Voids 3 # Bowel Movements 1 PHYSICAL EXAM Alert. Oriented to place and person, 1 day off on date. PERRL. EOMI. CN: no focal findings. Muscle tone: normal. Muscle strength: 4/5 DTR: 0-1+ Plantar reflex: Flexor Gait: not examined in bed. Sensory exam: Stocking loss. No cerebellar signs elicited. Review of Relevant I have reviewed the following items ashwini (where applicable) has been applied. Labs Laboratory Tests Test 06/16/21 11:20 06/16/21 11:37 06/16/21 16:36 06/16/21 19:55 White Blood Count 15.4 x10^3/uL (4.0-11.0) Red Blood Count 3.43 x10^6/uL (4.30-5.70) Hemoglobin 9.4 g/dL (13.0-17.5) Hematocrit 28.7 % (39.0-53.0) Mean Corpuscular Volume 84 fL (79-100) Mean Corpuscular Hemoglobin 28 pg (25-35) Mean Corpuscular Hemoglobin Concent 33 g/dL (31-37) Red Cell Distribution Width 18.1 % (11.5-14.5) Platelet Count 658 x10^3/uL (140-400) Neutrophils (%) (Auto) 82 % (31-73) Lymphocytes (%) (Auto) 8 % (24-48) Monocytes (%) (Auto) 8 % (0-9) Eosinophils (%) (Auto) 2 % (0-3) Basophils (%) (Auto) 0 % (0-3) Neutrophils # (Auto) 12.6 x10^3/uL (1.8-7.7) Lymphocytes # (Auto) 1.2 x10^3/uL (1.0-4.8) Monocytes # (Auto) 1.2 x10^3/uL (0.0-1.1) Eosinophils # (Auto) 0.3 x10^3/uL (0.0-0.7) Basophils # (Auto) 0.0 x10^3/uL (0.0-0.2) Segmented Neutrophils % 84 % (35-66) Lymphocytes % 7 % (24-48) Monocytes % 3 % (0-10) Eosinophils % 5 % (0-5) Basophils % 1 % (0-3) Platelet Estimate Increased (ADEQUATE) Polychromasia Slight Anisocytosis Slight Glucose (Fingerstick) 129 mg/dL (70-99) 130 mg/dL (70-99) 116 mg/dL (70-99) Test 06/17/21 07:04 06/17/21 20:37 06/17/21 21:20 06/18/21 05:22 White Blood Count 14.5 x10^3/uL (4.0-11.0) Red Blood Count 3.53 x10^6/uL (4.30-5.70) Hemoglobin 9.6 g/dL (13.0-17.5) Hematocrit 30.0 % (39.0-53.0) Mean Corpuscular Volume 85 fL (79-100) Mean Corpuscular Hemoglobin 27 pg (25-35) Mean Corpuscular Hemoglobin Concent 32 g/dL (31-37) Red Cell Distribution Width 17.9 % (11.5-14.5) Platelet Count 767 x10^3/uL (140-400) Neutrophils (%) (Auto) 84 % (31-73) Lymphocytes (%) (Auto) 8 % (24-48) Monocytes (%) (Auto) 7 % (0-9) Eosinophils (%) (Auto) 2 % (0-3) Basophils (%) (Auto) 0 % (0-3) Neutrophils # (Auto) 12.1 x10^3/uL (1.8-7.7) Lymphocytes # (Auto) 1.1 x10^3/uL (1.0-4.8) Monocytes # (Auto) 1.0 x10^3/uL (0.0-1.1) Eosinophils # (Auto) 0.2 x10^3/uL (0.0-0.7) Basophils # (Auto) 0.0 x10^3/uL (0.0-0.2) Sodium Level 135 mmol/L (136-145) Potassium Level 4.7 mmol/L (3.5-5.1) Chloride Level 100 mmol/L (98-107) Carbon Dioxide Level 27 mmol/L (21-32) Anion Gap 8 (6-14) Blood Urea Nitrogen 11 mg/dL (8-26) Creatinine 1.1 mg/dL (0.7-1.3) Estimated GFR (Cockcroft-Gault) 66.4 Glucose Level 123 mg/dL (70-99) Calcium Level 8.9 mg/dL (8.5-10.1) Iron Level 32 ug/dL (65-175) Total Iron Binding Capacity 272 ug/dL (250-450) Iron Saturation 12 % (15-34) Glucose (Fingerstick) 97 mg/dL (70-99) 144 mg/dL (70-99) Ammonia < 10 mcmol/L (11-34) Test 06/18/21 06:45 06/18/21 07:28 White Blood Count 13.5 x10^3/uL (4.0-11.0) Red Blood Count 3.92 x10^6/uL (4.30-5.70) Hemoglobin 10.7 g/dL (13.0-17.5) Hematocrit 33.3 % (39.0-53.0) Mean Corpuscular Volume 85 fL (79-100) Mean Corpuscular Hemoglobin 27 pg (25-35) Mean Corpuscular Hemoglobin Concent 32 g/dL (31-37) Red Cell Distribution Width 18.5 % (11.5-14.5) Platelet Count 735 x10^3/uL (140-400) Neutrophils (%) (Auto) 81 % (31-73) Lymphocytes (%) (Auto) 8 % (24-48) Monocytes (%) (Auto) 7 % (0-9) Eosinophils (%) (Auto) 3 % (0-3) Basophils (%) (Auto) 0 % (0-3) Neutrophils # (Auto) 11.0 x10^3/uL (1.8-7.7) Lymphocytes # (Auto) 1.1 x10^3/uL (1.0-4.8) Monocytes # (Auto) 0.9 x10^3/uL (0.0-1.1) Eosinophils # (Auto) 0.4 x10^3/uL (0.0-0.7) Basophils # (Auto) 0.0 x10^3/uL (0.0-0.2) Sodium Level 138 mmol/L (136-145) Potassium Level 4.8 mmol/L (3.5-5.1) Chloride Level 100 mmol/L (98-107) Carbon Dioxide Level 24 mmol/L (21-32) Anion Gap 14 (6-14) Blood Urea Nitrogen 11 mg/dL (8-26) Creatinine 0.9 mg/dL (0.7-1.3) Estimated GFR (Cockcroft-Gault) 83.7 BUN/Creatinine Ratio 12 (6-20) Glucose Level 116 mg/dL (70-99) Calcium Level 9.3 mg/dL (8.5-10.1) Total Bilirubin 0.5 mg/dL (0.2-1.0) Aspartate Amino Transf (AST/SGOT) 22 U/L (15-37) Alanine Aminotransferase (ALT/SGPT) 24 U/L (16-63) Alkaline Phosphatase 79 U/L (46-116) Total Protein 7.1 g/dL (6.4-8.2) Albumin 2.5 g/dL (3.4-5.0) Albumin/Globulin Ratio 0.5 (1.0-1.7) Glucose (Fingerstick) 116 mg/dL (70-99) Laboratory Tests Test 06/17/21 20:37 06/17/21 21:20 06/18/21 05:22 06/18/21 06:45 Glucose (Fingerstick) 97 mg/dL (70-99) 144 mg/dL (70-99) Ammonia < 10 mcmol/L (11-34) White Blood Count 13.5 x10^3/uL (4.0-11.0) Red Blood Count 3.92 x10^6/uL (4.30-5.70) Hemoglobin 10.7 g/dL (13.0-17.5) Hematocrit 33.3 % (39.0-53.0) Mean Corpuscular Volume 85 fL (79-100) Mean Corpuscular Hemoglobin 27 pg (25-35) Mean Corpuscular Hemoglobin Concent 32 g/dL (31-37) Red Cell Distribution Width 18.5 % (11.5-14.5) Platelet Count 735 x10^3/uL (140-400) Neutrophils (%) (Auto) 81 % (31-73) Lymphocytes (%) (Auto) 8 % (24-48) Monocytes (%) (Auto) 7 % (0-9) Eosinophils (%) (Auto) 3 % (0-3) Basophils (%) (Auto) 0 % (0-3) Neutrophils # (Auto) 11.0 x10^3/uL (1.8-7.7) Lymphocytes # (Auto) 1.1 x10^3/uL (1.0-4.8) Monocytes # (Auto) 0.9 x10^3/uL (0.0-1.1) Eosinophils # (Auto) 0.4 x10^3/uL (0.0-0.7) Basophils # (Auto) 0.0 x10^3/uL (0.0-0.2) Sodium Level 138 mmol/L (136-145) Potassium Level 4.8 mmol/L (3.5-5.1) Chloride Level 100 mmol/L (98-107) Carbon Dioxide Level 24 mmol/L (21-32) Anion Gap 14 (6-14) Blood Urea Nitrogen 11 mg/dL (8-26) Creatinine 0.9 mg/dL (0.7-1.3) Estimated GFR (Cockcroft-Gault) 83.7 BUN/Creatinine Ratio 12 (6-20) Glucose Level 116 mg/dL (70-99) Calcium Level 9.3 mg/dL (8.5-10.1) Total Bilirubin 0.5 mg/dL (0.2-1.0) Aspartate Amino Transf (AST/SGOT) 22 U/L (15-37) Alanine Aminotransferase (ALT/SGPT) 24 U/L (16-63) Alkaline Phosphatase 79 U/L (46-116) Total Protein 7.1 g/dL (6.4-8.2) Albumin 2.5 g/dL (3.4-5.0) Albumin/Globulin Ratio 0.5 (1.0-1.7) Test 06/18/21 07:28 Glucose (Fingerstick) 116 mg/dL (70-99) Medications Current Medications Morphine Sulfate (Morphine Sulfate) 4 mg 1X ONCE IVP Last administered on 06/13/21at 12:50; Start 06/13/21 at 12:30; Stop 06/13/21 at 12:31; Status DC Piperacillin Sod/ Tazobactam Sod (Zosyn Per Pharmacy) 1 each PRN DAILY PRN MC SEE COMMENTS; Start 06/13/21 at 12:45 Piperacillin Sod/ Tazobactam Sod 3.375 gm/Sodium Chloride 50 ml @ 100 mls/hr 1X ONCE IV Last administered on 06/13/21at 12:50; Start 06/13/21 at 12:45; Stop 06/13/21 at 13:14; Status DC Morphine Sulfate (Morphine Sulfate) 4 mg PRN Q2HR PRN IVP PAIN Last administered on 06/14/21at 10:10; Start 06/13/21 at 12:45; Stop 06/14/21 at 12:44; Status DC Hydromorphone HCl (Dilaudid) 2 mg 1X ONCE IVP Last administered on 06/13/21at 13:21; Start 06/13/21 at 13:15; Stop 06/13/21 at 13:16; Status DC Amiodarone HCl (Cordarone) 200 mg DAILY PO Last administered on 06/17/21at 07:57; Start 06/14/21 at 09:00 Apixaban (Eliquis) 5 mg BID PO Last administered on 06/18/21at 08:21; Start 06/13/21 at 21:00 Aspirin (Ecotrin) 81 mg DAILY PO Last administered on 06/18/21at 08:18; Start 06/14/21 at 09:00 Atorvastatin Calcium (Lipitor) 40 mg HS PO Last administered on 06/17/21at 21:29; Start 06/13/21 at 21:00 Diltiazem HCl (Cardizem 24hr Cd) 240 mg DAILY PO Last administered on 06/17/21at 07:56; Start 06/14/21 at 09:00 Duloxetine HCl (Cymbalta) 30 mg DAILY PO Last administered on 06/18/21at 08:21; Start 06/14/21 at 09:00 Famotidine (Pepcid) 20 mg BID PO Last administered on 06/18/21at 08:19; Start 06/13/21 at 21:00 Fenofibrate (Lofibra) 134 mg DAILY PO Last administered on 06/18/21at 08:21; Start 06/14/21 at 09:00 Furosemide (Lasix) 40 mg BID94 PO ; Start 06/13/21 at 16:00; Stop 06/13/21 at 15:18; Status DC Gabapentin (Neurontin) 300 mg TID PO Last administered on 06/18/21at 08:18; Start 06/13/21 at 14:00 Acetaminophen/ Hydrocodone Bitart (Lortab 7.5/325) 1 tab PRN Q6HRS PRN PO MOD- SEVERE PAIN Last administered on 06/18/21at 08:18; Start 06/13/21 at 13:15 Linezolid (Zyvox) 600 mg BID PO Last administered on 06/18/21at 08:21; Start 06/13/21 at 21:00 Methocarbamol (Robaxin) 500 mg TID PRN PRN PO MUSCLE PAIN Last administered on 06/17/21at 22:41; Start 06/13/21 at 13:45 Metoprolol Tartrate (Lopressor) 25 mg BID PO Last administered on 06/17/21at 07:55; Start 06/13/21 at 21:00 Polyethylene Glycol (miraLAX PACKET) 17 gm PRN DAILY PRN PO CONSTIPATION, 1ST CHOICE; Start 06/13/21 at 13:15 Insulin Human Lispro (HumaLOG) 15 units TIDWMEALS SQ Last administered on 06/18/21at 08:38; Start 06/13/21 at 17:00 Sennosides (Senna) 17.2 mg PRN BID PRN PO CONSTIPATION, 2ND CHOICE Last administered on 06/16/21at 09:37; Start 06/13/21 at 13:15 Docusate Sodium (Colace) 100 mg PRN DAILY PRN PO HARD STOOLS; Start 06/13/21 at 13:15 Ondansetron HCl (Zofran) 4 mg PRN Q6HRS PRN IVP NAUSEA/VOMITING Last administered on 06/17/21at 03:16; Start 06/13/21 at 13:15 Insulin Human Lispro (HumaLOG) 0-7 UNITS TIDWMEALS SQ ; Start 06/13/21 at 17:00 Dextrose (Dextrose 50%-Water Syringe) 12.5 gm PRN Q15MIN PRN IV SEE COMMENTS; Start 06/13/21 at 13:15 Acetaminophen (Tylenol) 650 mg PRN Q4HRS PRN PO TEMP OVER 100.4F OR MILD PAIN; Start 06/13/21 at 13:15 Morphine Sulfate (Morphine Sulfate) 1 mg PRN Q1HR PRN IV PAIN Last administered on 06/15/21at 02:58; Start 06/13/21 at 13:15; Stop 06/16/21 at 09:41; Status DC Morphine Sulfate (Morphine Sulfate) 2 mg PRN Q2HR PRN IVP SEVERE PAIN 7-10 Last administered on 06/13/21at 19:20; Start 06/13/21 at 13:15; Stop 06/14/21 at 13:14; Status DC Prochlorperazine Edisylate (Compazine) 10 mg PRN Q6HRS PRN IV NAUSEA/VOMITING, 2ND CHOICE; Start 06/13/21 at 13:15 Piperacillin Sod/ Tazobactam Sod 3.375 gm/Sodium Chloride 50 ml @ 100 mls/hr Q6HRS IV Last administered on 06/18/21at 05:23; Start 06/13/21 at 18:00 Furosemide (Lasix) 40 mg 1X ONCE IVP Last administered on 06/13/21at 15:48; Start 06/13/21 at 15:30; Stop 06/13/21 at 15:31; Status DC Potassium Chloride (Klor-Con) 40 meq TIDWMEALS PO Last administered on 06/18/21at 08:23; Start 06/14/21 at 08:00 Magnesium Sulfate 50 ml @ 25 mls/hr 1X ONCE IV Last administered on 06/14/21at 06:40; Start 06/14/21 at 07:00; Stop 06/14/21 at 08:59; Status DC Potassium Chloride (Klor-Con) 40 meq 1X ONCE PO Last administered on 06/14/21at 12:44; Start 06/14/21 at 11:15; Stop 06/14/21 at 11:16; Status DC Info (Anti-Coagulation Monitoring By Pharmacy) 1 each PRN DAILY PRN MC PER PROTOCOL Last administered on 06/17/21at 11:19; Start 06/14/21 at 13:30 Lactobacillus Rhamnosus (Culturelle) 1 cap BID PO Last administered on 06/18/21 08:22; Start 06/14/21 at 21:00 Lorazepam (Ativan) 0.5 mg PRN Q6HRS PRN PO ANXIETY / AGITATION Last administered on 06/17/21at 22:41; Start 06/15/21 at 07:45 Morphine Sulfate (Morphine Sulfate) 4 mg PRN Q4HRS PRN IV MODERATE TO SEVERE PAIN Last administered on 06/16/21at 09:05; Start 06/15/21 at 07:45; Stop 06/16/21 at 09:41; Status DC Multivitamins (Thera M Plus) 1 tab DAILY PO Last administered on 06/18/21at 08:22; Start 06/15/21 at 12:00 Ascorbic Acid (Vitamin C) 500 mg DAILY PO Last administered on 06/18/21 08:22; Start 06/15/21 at 12:00 Micafungin Sodium 100 mg/Dextrose 100 ml @ 100 mls/hr Q24H IV Last admin istered on 06/18/21 08:25; Start 06/16/21 at 09:00 Bisacodyl (Dulcolax Supp) 10 mg 1X ONCE CO Last administered on 06/16/21at 09:37; Start 06/16/21 at 09:30; Stop 06/16/21 at 09:31; Status DC Sodium Monofluorophosphate (Fleet Adult) 133 ml DAILY PRN CO CONSTIPATION; Start 06/16/21 at 09:45 Sodium Monofluorophosphate (Fleet Adult) 133 ml 1X ONCE CO ; Start 06/16/21 at 09:45; Stop 06/16/21 at 09:46; Status DC Morphine Sulfate (Morphine Sulfate) 2 mg PRN Q4HRS PRN IVP PAIN Last administered on 06/18/21at 05:00; Start 06/16/21 at 18:45 Morphine Sulfate (Morphine Sulfate) 4 mg 1X ONCE IVP Last administered on 06/16/21at 18:42; Start 06/16/21 at 18:45; Stop 06/16/21 at 18:46; Status DC Fentanyl Citrate (Fentanyl 2ml Vial) 50 mcg 1X ONCE IVP Last administered on 06/16/21at 20:54; Start 06/16/21 at 20:45; Stop 06/16/21 at 20:46; Status DC Active Scripts Active [Oxygen] 2 L DEJUAN CONT PRN Zyvox (Linezolid) 600 Mg Tablet 600 Mg PO BID 10 Days for two weeks. Started 04/01/21. Hydrocodone-Apap 7.5-325 (Hydrocodone Bit/Acetaminophen) 1 Tab Tablet 1 Tab PO PRN Q6HRS PRN 14 Days .. Polyethylene Glycol 3350 17 Gm Powd.pack 17 Gm PO PRN DAILY PRN 30 Days Klor-Con M20 (Potassium Chloride) 20 Meq Tab.er.prt 1 Tab PO DAILY 30 Days Metoprolol Tartrate 25 Mg Tablet 1 Tab PO BID Metformin Hcl 500 Mg Tablet 500 Mg PO BIDWMEALS 30 Days Eliquis (Apixaban) 5 Mg Tablet 5 Mg PO BID 30 Days Reported Diltiazem 24Hr Cd (Diltiazem HCl) 240 Mg Cap.er.24h 1 Cap PO DAILY Keflex (Cephalexin) 500 Mg Capsule 1 Cap PO QID Furosemide 40 Mg Tablet 1 Tab PO BID Duloxetine Hcl 30 Mg Capsule.dr 1 Cap PO DAILY 90 Days Gabapentin 300 Mg Capsule 1 Cap PO TID 90 Days Famotidine 20 Mg Tablet 20 Mg PO BID Novolog Flexpen (Insulin Aspart) 100 Unit/1 Ml Insuln.pen 15 Unit SQ TIDBFRMEAL Robaxin-750 (Methocarbamol) 750 Mg Tablet 500 Mg PO TID PRN PRN Aspir 81 (Aspirin) 81 Mg Tablet.dr 81 Mg PO DAILY Fenofibrate (Fenofibrate,Micronized) 134 Mg Capsule 134 Mg PO DAILY Atorvastatin Calcium 40 Mg Tablet 40 Mg PO HS Amiodarone Hcl 200 Mg Tablet 200 Mg PO DAILY Vitals/I & O Vital Sign - Last 24 Hours 06/17/21 06/17/21 06/17/21 06/17/21 08:54 11:04 11:05 15:13 Temp 98.5 97.7 98.5 97.7 Pulse 71 76 Resp 20 22 22 B/P (MAP) 109/67 (81) 109/76 (87) Pulse Ox 91 91 90 O2 Delivery Nasal Cannula Nasal Cannula Nasal Cannula O2 Flow Rate 2.0 2.0 2.0 06/17/21 06/17/21 06/17/21 06/17/21 15:35 19:24 19:25 20:00 Temp 97.7 97.7 Pulse 72 Resp 18 24 B/P (MAP) 148/35 (72) Pulse Ox 90 91 O2 Delivery Nasal Cannula Nasal Cannula Nasal Cannula Nasal Cannula O2 Flow Rate 2.0 2.0 2.0 2.0 06/17/21 06/17/21 06/17/21 06/17/21 20:00 21:31 22:01 23:04 Temp 97.8 97.8 Pulse 87 Resp 24 20 20 B/P (MAP) 123/75 (91) Pulse Ox 91 O2 Delivery Nasal Cannula Nasal Cannula Nasal Cannula Nasal Cannula O2 Flow Rate 3.0 3.0 3.0 3.0 06/18/21 06/18/21 06/18/21 06/18/21 03:11 05:00 05:42 08:00 Temp 97.8 97.5 97.8 97.5 Pulse 88 80 Resp 20 24 20 18 B/P (MAP) 126/76 (93) 100/69 (79) Pulse Ox 93 93 O2 Delivery Nasal Cannula Nasal Cannula Nasal Cannula Nasal Cannula O2 Flow Rate 3.0 2.0 2.0 4.0 06/18/21 06/18/21 06/18/21 06/18/21 08:18 08:28 08:35 08:36 Pulse 80 80 80 B/P (MAP) 100/69 100/69 100/69 O2 Delivery Nasal Cannula O2 Flow Rate 3.0 Intake and Output 06/17/21 06/17/21 06/18/21 15:00 23:00 07:00 Intake Total 240 ml 240 ml Balance 240 ml 240 ml Justicifation of Admission Dx: Justifications for Admission: Justification of Admission Dx: Yes CHF: Hemodynamic Instability Comminuty Aquired Pneumonia: Hypoxemia YOHANNES BELLAMY MD Jun 18, 2021 08:47
[2021-06-18 11:00] VITALS: BP 148/75
--- NOTE | 2021-06-18 11:40 | PDOC ---
Date of Service: DATE: 06/18/21 TIME: 11:35 Subjective: Subjective: Feels okay, says got morphine for leg pain. Objective: Objective: Ammonia normal. On Pepcid. Vital Signs: Vital Signs Date Time Temp Pulse Resp B/P (MAP) Pulse Ox O2 Delivery O2 Flow Rate FiO2 06/18/21 10:23 Nasal Cannula 3.0 06/18/21 08:36 80 100/69 06/18/21 08:00 97.5 18 93 97.5 Labs: Laboratory Tests Test 06/17/21 20:37 06/17/21 21:20 06/18/21 05:22 06/18/21 06:45 Glucose (Fingerstick) 97 mg/dL 144 mg/dL Ammonia < 10 mcmol/L White Blood Count 13.5 x10^3/uL Red Blood Count 3.92 x10^6/uL Hemoglobin 10.7 g/dL Hematocrit 33.3 % Mean Corpuscular Volume 85 fL Mean Corpuscular Hemoglobin 27 pg Mean Corpuscular Hemoglobin Concent 32 g/dL Red Cell Distribution Width 18.5 % Platelet Count 735 x10^3/uL Neutrophils (%) (Auto) 81 % Lymphocytes (%) (Auto) 8 % Monocytes (%) (Auto) 7 % Eosinophils (%) (Auto) 3 % Basophils (%) (Auto) 0 % Neutrophils # (Auto) 11.0 x10^3/uL Lymphocytes # (Auto) 1.1 x10^3/uL Monocytes # (Auto) 0.9 x10^3/uL Eosinophils # (Auto) 0.4 x10^3/uL Basophils # (Auto) 0.0 x10^3/uL Sodium Level 138 mmol/L Potassium Level 4.8 mmol/L Chloride Level 100 mmol/L Carbon Dioxide Level 24 mmol/L Anion Gap 14 Blood Urea Nitrogen 11 mg/dL Creatinine 0.9 mg/dL Estimated GFR (Cockcroft-Gault) 83.7 BUN/Creatinine Ratio 12 Glucose Level 116 mg/dL Calcium Level 9.3 mg/dL Total Bilirubin 0.5 mg/dL Aspartate Amino Transf (AST/SGOT) 22 U/L Alanine Aminotransferase (ALT/SGPT) 24 U/L Alkaline Phosphatase 79 U/L Total Protein 7.1 g/dL Albumin 2.5 g/dL Albumin/Globulin Ratio 0.5 Test 06/18/21 07:28 06/18/21 11:22 Glucose (Fingerstick) 116 mg/dL 106 mg/dL PE: GEN: NAD, chronically ill LUNGS: clear, NC 3L HEART: RRR ABD: obese, non-tender EXTREM: BLE wrapped NEURO/PSYCH: bit more alert today, still some confusion - says year is 2011 A/P: LE cellulitis, encephalopathy SONALI ?chronic liver disease on CT COVID negative BMI 52 -- Continue support per GI. Justicifation of Admission Dx: Justifications for Admission: Justification of Admission Dx: Yes CHF: Hemodynamic Instability Comminuty Aquired Pneumonia: Hypoxemia ELLEN NAVARRO Jun 18, 2021 11:40
--- NOTE | 2021-06-18 12:56 | PDOC ---
[facility] PROGRESS NOTE Date of Service DOS: DATE: 06/18/21 TIME: 12:51 Chief Complaint Chief Complaint L leg cellulitis Atrial fibrillation ZACHERY CAD CHF DM2 HLD CT Anemia of Chronic Disease Severe protein malnutrition Mild hypoxia Sepsis POA Obstipation History of Present Illness History of Present Illness 06/18/2021: Pt seen and examined. Discussed with RN. Chart reviewed. Discussed with daughter, Nirali. Wound dressing clean, dry, intact. 06-16 no bm x 4 days, will give fleets, d/c iv morphine, may be attributed to o bstipation Continue Zosyn and Zyvox start micafungin Elevate left lower extremity. D/W [employer] LEFT ANKLE 06-17 inc confusion, delerium Morphology of the liver may reflect chronic disease. , hepatic steatosis Ankle mortise is symmetric and talar dome is intact. diffuse subcutaneous edema. No soft tissue gas. x ray ankle MORE CONFUSED, D/W DR SAMUELS will order ct head, neurology consult, continue iv antibiotics per dr Samuels, continued stay needed prn give fleets, d/c iv morphine, may be attributed to obstipation Continue Zosyn and Zyvox 06-17 ct head chronic small vessel ischemic disease as well as edema from acute etiology within the differential continue micafungin Elevate left lower extremity. D/W [employer] LEFT ANKLE consult gi, nh4 33 min cc time Vitals/I&O Vitals/I&O: Vital Signs Date Time Temp Pulse Resp B/P (MAP) Pulse Ox O2 Delivery O2 Flow Rate FiO2 06/18/21 11:00 97.9 70 18 148/75 (99) 92 Nasal Cannula 3.0 97.9 I & O 06/17/21 06/17/21 06/18/21 15:00 23:00 07:00 Intake Total 240 ml 240 ml Balance 240 ml 240 ml Physical Exam Physical Exam: GENERAL: Alert, awake lying in bed in nad HEENT: Normocephalic, atraumatic. Anicteric. NECK: Supple. LUNGS: Clear bilaterally. No wheezing. HEART: S1, S2. ABDOMEN: Obese, mild diffuse tenderness present, bowel sounds present, no guarding or rigidity EXTREMITIES: Bilateral lower extremity lymphedema, venous stasis, redness with hyperpigmentation and chronic changes both lower extremities Left lower extremity redness warmth tenderness more than the right, few open wounds, no loss purulence. Yeast present MUSCULOSKELETAL: No joint swelling. No decrease in range of motion. CENTRAL NERVOUS SYSTEM: Alert, oriented x 3, grossly nonfocal. PSYCHIATRIC: Cooperative, calm. LINES: looks clean. General: Cooperative, Other (lethargic) Heart: Regular rate, Other (2+ DP, radial b/l, femoral not palpable due to body habitus) Lungs: Clear Abdomen: No tenderness Extremities: Other (2+ pitting edema BLE, superfical skin ulceration due to pressure injury on left posterior calf, medial BLE with superficial ulceration) Skin: Other (cellulitis with superficial ulceration of the medial aspect of LLE and lateral aspect of RLE) Labs Labs: Laboratory Tests Test 06/17/21 20:37 06/17/21 21:20 06/18/21 05:22 06/18/21 06:45 Glucose (Fingerstick) 97 mg/dL (70-99) 144 mg/dL (70-99) Ammonia < 10 mcmol/L (11-34) White Blood Count 13.5 x10^3/uL (4.0-11.0) Red Blood Count 3.92 x10^6/uL (4.30-5.70) Hemoglobin 10.7 g/dL (13.0-17.5) Hematocrit 33.3 % (39.0-53.0) Mean Corpuscular Volume 85 fL (79-100) Mean Corpuscular Hemoglobin 27 pg (25-35) Mean Corpuscular Hemoglobin Concent 32 g/dL (31-37) Red Cell Distribution Width 18.5 % (11.5-14.5) Platelet Count 735 x10^3/uL (140-400) Neutrophils (%) (Auto) 81 % (31-73) Lymphocytes (%) (Auto) 8 % (24-48) Monocytes (%) (Auto) 7 % (0-9) Eosinophils (%) (Auto) 3 % (0-3) Basophils (%) (Auto) 0 % (0-3) Neutrophils # (Auto) 11.0 x10^3/uL (1.8-7.7) Lymphocytes # (Auto) 1.1 x10^3/uL (1.0-4.8) Monocytes # (Auto) 0.9 x10^3/uL (0.0-1.1) Eosinophils # (Auto) 0.4 x10^3/uL (0.0-0.7) Basophils # (Auto) 0.0 x10^3/uL (0.0-0.2) Sodium Level 138 mmol/L (136-145) Potassium Level 4.8 mmol/L (3.5-5.1) Chloride Level 100 mmol/L (98-107) Carbon Dioxide Level 24 mmol/L (21-32) Anion Gap 14 (6-14) Blood Urea Nitrogen 11 mg/dL (8-26) Creatinine 0.9 mg/dL (0.7-1.3) Estimated GFR (Cockcroft-Gault) 83.7 BUN/Creatinine Ratio 12 (6-20) Glucose Level 116 mg/dL (70-99) Calcium Level 9.3 mg/dL (8.5-10.1) Total Bilirubin 0.5 mg/dL (0.2-1.0) Aspartate Amino Transf (AST/SGOT) 22 U/L (15-37) Alanine Aminotransferase (ALT/SGPT) 24 U/L (16-63) Alkaline Phosphatase 79 U/L (46-116) Total Protein 7.1 g/dL (6.4-8.2) Albumin 2.5 g/dL (3.4-5.0) Albumin/Globulin Ratio 0.5 (1.0-1.7) Test 06/18/21 07:28 06/18/21 11:22 Glucose (Fingerstick) 116 mg/dL (70-99) 106 mg/dL (70-99) Assessment and Plan Assessmemt and Plan Problems Medical Problems: (1) Left leg cellulitis Status: Acute L leg cellulitis Atrial fibrillation ZACHERY CAD CHF DM2 HLD CT Anemia of Chronic Disease Severe protein malnutrition Mild hypoxia Sepsis POA Obstipation Plan: Wound care Continue antibiotics Encourage po intake Appreciate subspecialist input (ID, Nephro, GI) PT OT Cardiac monitoring Trend labs DVT prophylaxis Full code Comment Review of Relevant I have reviewed the following items ashwini (where applicable) has been applied. Justifications for Admission Other Justification Cellulitis RODRIGO TRAORE III DO Jun 18, 2021 12:56
[2021-06-18] MEDS: LORazepam 0.5 MG TABLET PO PRN ×2 (14:04→22:20)
[2021-06-18 15:00] VITALS: BP 132/72
[2021-06-18 19:00] VITALS: BP 152/79
[2021-06-18] MEDS: ATORVASTATIN CALCIUM 40 MG TABLET. PO SCH (20:33)
[2021-06-18 23:00] VITALS: BP 162/80
[2021-06-19] VITALS (7 sets, daily range): BP systolic 93–150; BP diastolic 60–83
[2021-06-19] MEDS: PIPERACILLIN/TAZOBACTAM 3.375 GM in IV NORMAL SALINE 50ML 50 ML IV SCH ×2 (00:15→05:44)
[2021-06-19] MEDS: MORPHINE SULFATE 2 MG/ML INJ. IVP PRN ×3 (01:08→09:43)
[2021-06-19] MEDS: HYDROcodone/APAP 7.5/325MG 1 TAB TABLET PO PRN (04:15)
[2021-06-19] MEDS: INSULIN LISPRO 300 UNITS/3 ML VIAL. SQ SCH ×6 (08:00→17:00)
[2021-06-19] MEDS: MULTIVITAMIN with MINERAL TABLET. PO SCH (08:48)
[2021-06-19] MEDS: GABAPENTIN 300 MG CAPSULE. PO SCH ×3 (08:48→21:24)
[2021-06-19] MEDS: FENOFIBRATE,MICRONIZED 134 MG CAPSULE PO SCH (08:48)
[2021-06-19] MEDS: ASCORBIC ACID 500 MG TABLET PO SCH (08:48)
[2021-06-19] MEDS: POTASSIUM CHLORIDE 20 MEQ TABLET.ER. PO SCH ×4 (08:48→21:21)
[2021-06-19] MEDS: ASPIRIN ENTERIC COATED 81 MG TABLET.DR. PO SCH (08:48)
[2021-06-19] MEDS: METOPROLOL TART IMMED RELEASE 25 MG TABLET. PO SCH ×2 (08:49→21:37)
[2021-06-19] MEDS: FAMOTIDINE 20 MG TABLET. PO SCH ×2 (08:49→21:23)
[2021-06-19] MEDS: AMIODARONE HCL 200 MG TABLET. PO SCH (08:49)
[2021-06-19] MEDS: LACTOBACILLUS RHAMNOSUS GG 1 CAPSULE. PO SCH ×2 (08:50→21:20)
[2021-06-19] MEDS: APIXABAN 5 MG TABLET. PO SCH ×2 (08:50→21:23)
[2021-06-19] MEDS: DULoxetine HCL 30 MG CAPSULE.DR PO SCH (08:50)
[2021-06-19] MEDS: LINEZOLID 600 MG TABLET PO SCH ×2 (08:50→21:24)
[2021-06-19] MEDS: MICAFUNGIN 100 MG in IV DEXTROSE 5% 100ML 100 ML IV SCH (08:51)
[2021-06-19 09:01] LABS: CALCIUM 9.1 mg/dL (8.5-10.1); GFR 74.1; POTASSIUM 4.9 mmol/L (3.5-5.1)
--- NOTE | 2021-06-19 09:08 | PDOC ---
Infectious Disease Note Subjective: Subjective Follow-up for bilateral lower extremity cellulitis CT abdomen and pelvis reviewed CT head noted Interim events noted Remains afebrile Patient is comfortable today States abdominal pain is under control States leg pain and swelling is improving Vital Signs: Vital Signs Vital Signs Date Time Temp Pulse Resp B/P (MAP) Pulse Ox O2 Delivery O2 Flow Rate FiO2 06/19/21 08:49 85 150/76 06/19/21 07:00 97.7 18 94 Nasal Cannula 3.0 97.7 Physical Exam: PHYSICAL EXAM GENERAL: Alert, awake lying in bed in nad HEENT: Normocephalic, atraumatic. Anicteric. NECK: Supple. LUNGS: Clear bilaterally. No wheezing. HEART: S1, S2. ABDOMEN: Obese, mild diffuse tenderness present, bowel sounds present, no guarding or rigidity EXTREMITIES: Bilateral lower extremity lymphedema, venous stasis, redness with hyperpigmentation and chronic changes both lower extremities Left lower extremity redness warmth tenderness more than the right, few open wounds, no loss purulence. Yeast present MUSCULOSKELETAL: No joint swelling. No decrease in range of motion. CENTRAL NERVOUS SYSTEM: Alert, oriented x 3, grossly nonfocal. PSYCHIATRIC: Cooperative, calm. LINES: looks clean. Medications: Inpatient Meds: Medications reviewed. Labs: Lab Laboratory Tests Test 06/18/21 11:22 06/18/21 17:06 06/18/21 20:23 06/19/21 07:34 Glucose (Fingerstick) 106 mg/dL (70-99) 74 mg/dL (70-99) 124 mg/dL (70-99) 102 mg/dL (70-99) Test 06/19/21 08:30 Sodium Level 138 mmol/L (136-145) Potassium Level 4.9 mmol/L (3.5-5.1) Chloride Level 102 mmol/L (98-107) Carbon Dioxide Level 28 mmol/L (21-32) Anion Gap 8 (6-14) Blood Urea Nitrogen 12 mg/dL (8-26) Creatinine 1.0 mg/dL (0.7-1.3) Estimated GFR (Cockcroft-Gault) 74.1 Glucose Level 95 mg/dL (70-99) Calcium Level 9.1 mg/dL (8.5-10.1) Objective: Assessment: 1. Left lower extremity cellulitis with underlying chronic venous insufficiency. 2. Bilateral lower extremity venous insufficiency. 3. Morbid obesity. 4. Diabetes. 5. Leukocytosis. Improving. Cultures nonrevealing 6. Congestive heart failure, chronic. Constipation Metabolic encephalopathy with abnormal CT head. Neurology consulted Abnormal CT abdomen and pelvis with peripancreatic stranding and diffuse lymphadenopathy Plan: Plan of Care Management of abnormal CT abdomen and pelvis per primary Neurology evaluating patient DC Zosyn start Augmentin Continue Zyvox Continue micafungin for now, will discontinue on discharge Elevate left lower extremity. Continue local wound care as directed Discussed with case management patient will not need long-term IV antibiotics if no other source of infection is identified during this hospitalization Management of abdominal pain and constipation and abnormal CT head per primary Local wound care Monitor labs and cultures ALDA SAMUELS MD Jun 19, 2021 09:08
--- NOTE | 2021-06-19 09:43 | PDOC ---
[facility] PROGRESS NOTE Date of Service DOS: DATE: 06/19/21 TIME: 09:38 Chief Complaint Chief Complaint L leg cellulitis Atrial fibrillation ZACHERY CAD CHF DM2 HLD [place] Anemia of Chronic Disease Severe protein malnutrition Mild hypoxia Sepsis POA Obstipation History of Present Illness History of Present Illness 06/19/2021: Pt seen and examined. Chart reviewed. Discussed with RN. Wound dressing clean, dry, intact. Pt more alert today and complains of pain in his legs with movement. 06/18/2021: Pt seen and examined. Discussed with RN. Chart reviewed. Discussed with daughter, Nirali. Wound dressing clean, dry, intact. 06-16 no bm x 4 days, will give fleets, d/c iv morphine, may be attributed to obstipation Continue Zosyn and Zyvox start micafungin Elevate left lower extremity. D/W [employer] LEFT ANKLE 06-17 inc confusion, delerium Morphology of the liver may reflect chronic disease. , hepatic steatosis Ankle mortise is symmetric and talar dome is intact. diffuse subcutaneous edema. No soft tissue gas. x ray ankle MORE CONFUSED, D/W DR SAMUELS will order ct head, neurology consult, continue iv antibiotics per dr Samuels, continued stay needed prn give fleets, d/c iv morphine, may be attributed to obstipation Continue Zosyn and Zyvox 06-17 ct head chronic small vessel ischemic disease as well as edema from acute etiology within the differential continue micafungin Elevate left lower extremity. D/W [employer] LEFT ANKLE consult gi, nh4 33 min cc time Vitals/I&O Vitals/I&O: Vital Signs Date Time Temp Pulse Resp B/P (MAP) Pulse Ox O2 Delivery O2 Flow Rate FiO2 06/19/21 08:49 85 150/76 06/19/21 07:00 97.7 18 94 Nasal Cannula 3.0 97.7 I & O 06/18/21 06/18/21 06/19/21 15:00 23:00 07:00 Intake Total 760 ml Balance 760 ml Physical Exam Physical Exam: GENERAL: Alert, awake lying in bed in nad HEENT: Normocephalic, atraumatic. Anicteric. NECK: Supple. LUNGS: Clear bilaterally. No wheezing. HEART: S1, S2. ABDOMEN: Obese, mild diffuse tenderness present, bowel sounds present, no guarding or rigidity EXTREMITIES: Bilateral lower extremity lymphedema, venous stasis, redness with hyperpigmentation and chronic changes both lower extremities Left lower extremity redness warmth tenderness more than the right, few open wounds, no loss purulence. Yeast present MUSCULOSKELETAL: No joint swelling. No decrease in range of motion. CENTRAL NERVOUS SYSTEM: Alert, oriented x 3, grossly nonfocal. PSYCHIATRIC: Cooperative, calm. LINES: looks clean. General: Alert, Cooperative, Other (lethargic) Heart: Regular rate, Other (2+ DP, radial b/l, femoral not palpable due to body habitus) Lungs: Clear Abdomen: No tenderness Extremities: Other (2+ pitting edema BLE, superfical skin ulceration due to pressure injury on left posterior calf, medial BLE with superficial ulceration) Skin: Other (cellulitis with superficial ulceration of the medial aspect of LLE and lateral aspect of RLE) Labs Labs: Laboratory Tests Test 06/18/21 11:22 06/18/21 17:06 06/18/21 20:23 06/19/21 07:34 Glucose (Fingerstick) 106 mg/dL (70-99) 74 mg/dL (70-99) 124 mg/dL (70-99) 102 mg/dL (70-99) Test 06/19/21 08:30 Sodium Level 138 mmol/L (136-145) Potassium Level 4.9 mmol/L (3.5-5.1) Chloride Level 102 mmol/L (98-107) Carbon Dioxide Level 28 mmol/L (21-32) Anion Gap 8 (6-14) Blood Urea Nitrogen 12 mg/dL (8-26) Creatinine 1.0 mg/dL (0.7-1.3) Estimated GFR (Cockcroft-Gault) 74.1 Glucose Level 95 mg/dL (70-99) Calcium Level 9.1 mg/dL (8.5-10.1) Assessment and Plan Assessmemt and Plan Problems Medical Problems: (1) Left leg cellulitis Status: Acute L leg cellulitis Atrial fibrillation ZACHERY CAD CHF DM2 HLD [place] Anemia of Chronic Disease Severe protein malnutrition Mild hypoxia Sepsis POA Obstipation Plan: Wound care Continue antibiotics Encourage po intake Appreciate subspecialist input (ID, Nephro, GI) PT OT Cardiac monitoring Trend labs DVT prophylaxis Full code Comment Review of Relevant I have reviewed the following items ashwini (where applicable) has been applied. Justifications for Admission Other Justification Cellulitis RODRIGO TRAORE III DO Jun 19, 2021 09:43
[2021-06-19] MEDS: AMOXICILLIN/K CLAV 875/125MG TABLET. PO SCH ×2 (12:27→21:22)
[2021-06-19] MEDS ORDERED: fentaNYL 25MCG/HR PATCH 1 PATCH PATCH.TD72 TD SCH (12:30)
[2021-06-19] MEDS: ATORVASTATIN CALCIUM 40 MG TABLET. PO SCH (21:37)
[2021-06-20] MEDS: HYDROcodone/APAP 7.5/325MG 1 TAB TABLET PO PRN ×4 (01:14→19:57)
[2021-06-20 02:53] VITALS: BP 119/77
[2021-06-20 07:00] VITALS: BP 134/68
[2021-06-20] MEDS: INSULIN LISPRO 300 UNITS/3 ML VIAL. SQ SCH ×6 (07:51→17:00)
--- NOTE | 2021-06-20 09:15 | PDOC ---
Infectious Disease Note Subjective: Subjective Follow-up for bilateral lower extremity cellulitis Patient is comfortable today, eating breakfast States abdominal pain is under control States has hand pain Vital Signs: Vital Signs Vital Signs Date Time Temp Pulse Resp B/P (MAP) Pulse Ox O2 Delivery O2 Flow Rate FiO2 06/20/21 07:00 97.6 79 20 134/68 (90) 97 Nasal Cannula 3.0 97.6 Physical Exam: PHYSICAL EXAM GENERAL: Alert, awake lying in bed in nad HEENT: Normocephalic, atraumatic. Anicteric. NECK: Supple. LUNGS: Clear bilaterally. No wheezing. HEART: S1, S2. ABDOMEN: Obese, mild diffuse tenderness present, bowel sounds present, no guarding or rigidity EXTREMITIES: Bilateral lower extremity lymphedema, venous stasis, redness with hyperpigmentation and chronic changes both lower extremities Left lower extremity redness warmth tenderness more than the right, few open wounds, no loss purulence. Yeast present MUSCULOSKELETAL: No joint swelling. No decrease in range of motion. CENTRAL NERVOUS SYSTEM: Alert, oriented x 3, grossly nonfocal. PSYCHIATRIC: Cooperative, calm. LINES: looks clean. Medications: Inpatient Meds: Medications reviewed. Labs: Lab Laboratory Tests Test 06/19/21 11:37 06/19/21 17:06 06/19/21 20:36 06/20/21 07:26 Glucose (Fingerstick) 129 mg/dL (70-99) 102 mg/dL (70-99) 115 mg/dL (70-99) 99 mg/dL (70-99) Objective: Assessment: 1. Left lower extremity cellulitis with underlying chronic venous insufficiency. 2. Bilateral lower extremity venous insufficiency. 3. Morbid obesity. 4. Diabetes. 5. Leukocytosis. Improving. Cultures nonrevealing 6. Congestive heart failure, chronic. Constipation Metabolic encephalopathy with abnormal CT head. Neurology consulted Abnormal CT abdomen and pelvis with peripancreatic stranding and diffuse lymphadenopathy Plan: Plan of Care Continue Augmentin and Zyvox DC micafungin upon discharge Elevate lower extremity Optimal edema control PT and OT as tolerated Monitor labs and cultures Continue local wound care as directed Discussed with case management patient will not need long-term IV antibiotics if no other source of infection is identified during this hospitalization Management of abdominal pain and constipation and abnormal CT head per primary ALDA SAMUELS MD Jun 20, 2021 09:15
[2021-06-20] MEDS: LACTOBACILLUS RHAMNOSUS GG 1 CAPSULE. PO SCH ×2 (09:38→19:54)
[2021-06-20] MEDS: AMIODARONE HCL 200 MG TABLET. PO SCH (09:38)
[2021-06-20] MEDS: ASPIRIN ENTERIC COATED 81 MG TABLET.DR. PO SCH (09:38)
[2021-06-20] MEDS: MULTIVITAMIN with MINERAL TABLET. PO SCH (09:38)
[2021-06-20] MEDS: DULoxetine HCL 30 MG CAPSULE.DR PO SCH (09:38)
[2021-06-20] MEDS: FAMOTIDINE 20 MG TABLET. PO SCH ×2 (09:39→19:55)
[2021-06-20] MEDS: METOPROLOL TART IMMED RELEASE 25 MG TABLET. PO SCH ×2 (09:39→19:57)
[2021-06-20] MEDS: APIXABAN 5 MG TABLET. PO SCH ×2 (09:39→19:54)
[2021-06-20] MEDS: LINEZOLID 600 MG TABLET PO SCH ×2 (09:39→19:55)
[2021-06-20] MEDS: GABAPENTIN 300 MG CAPSULE. PO SCH ×3 (09:39→19:54)
[2021-06-20] MEDS: ASCORBIC ACID 500 MG TABLET PO SCH (09:39)
[2021-06-20] MEDS: FENOFIBRATE,MICRONIZED 134 MG CAPSULE PO SCH (09:39)
[2021-06-20] MEDS: AMOXICILLIN/K CLAV 875/125MG TABLET. PO SCH ×2 (09:42→19:55)
[2021-06-20] MEDS: MICAFUNGIN 100 MG in IV DEXTROSE 5% 100ML 100 ML IV SCH (09:43)
[2021-06-20 11:00] VITALS: BP 131/71
[2021-06-20] MEDS: POTASSIUM CHLORIDE 20 MEQ TABLET.ER. PO SCH ×2 (12:21→17:19)
--- NOTE | 2021-06-20 13:39 | PDOC ---
[facility] PROGRESS NOTE Date of Service DOS: DATE: 06/20/21 TIME: 13:35 Chief Complaint Chief Complaint L leg cellulitis Atrial fibrillation ZACHERY CAD CHF DM2 HLD [place] Anemia of Chronic Disease Severe protein malnutrition Mild hypoxia Sepsis POA Obstipation History of Present Illness History of Present Illness 06/20/2021: Pt seen and examined. Discussed with RN. Chart reviewed. Discussed with daughterNirali. Wound dressing clean, dry, intact. Pt feeling better since starting Fentanyl patch. 06/19/2021: Pt seen and examined. Chart reviewed. Discussed with RN. Wound dressing clean, dry, intact. Pt more alert today and complains of pain in his legs with movement. 06/18/2021: Pt seen and examined. Discussed with RN. Chart reviewed. Discussed with daughter, Nirali. Wound dressing clean, dry, intact. 06-16 no bm x 4 days, will give fleets, d/c iv morphine, may be attributed to obstipation Continue Zosyn and Zyvox start micafungin Elevate left lower extremity. D/W [employer] PIT LEFT ANKLE 06-17 inc confusion, delerium Morphology of the liver may reflect chronic disease. , hepatic steatosis Ankle mortise is symmetric and talar dome is intact. diffuse subcutaneous edema. No soft tissue gas. x ray ankle MORE CONFUSED, D/W DR SAMUELS will order ct head, neurology consult, continue iv antibiotics per dr Samuels, continued stay needed prn give fleets, d/c iv morphine, may be attributed to obstipation Continue Zosyn and Zyvox 06-17 ct head chronic small vessel ischemic disease as well as edema from acute etiology within the differential continue micafungin Elevate left lower extremity. D/W [employer] PIT LEFT ANKLE consult gi, nh4 33 min cc time Vitals/I&O Vitals/I&O: Vital Signs Date Time Temp Pulse Resp B/P (MAP) Pulse Ox O2 Delivery O2 Flow Rate FiO2 06/20/21 11:00 97.4 87 20 131/71 (91) 96 Nasal Cannula 3.0 97.4 I & O 06/19/21 06/19/21 06/20/21 15:00 23:00 07:00 Intake Total 100 ml Balance 100 ml Physical Exam Physical Exam: GENERAL: Alert, awake lying in bed in nad HEENT: Normocephalic, atraumatic. Anicteric. NECK: Supple. LUNGS: Clear bilaterally. No wheezing. HEART: S1, S2. ABDOMEN: Obese, mild diffuse tenderness present, bowel sounds present, no g uarding or rigidity EXTREMITIES: Bilateral lower extremity lymphedema, venous stasis, redness with hyperpigmentation and chronic changes both lower extremities Left lower extremity redness warmth tenderness more than the right, few open wounds, no loss purulence. Yeast present MUSCULOSKELETAL: No joint swelling. No decrease in range of motion. CENTRAL NERVOUS SYSTEM: Alert, oriented x 3, grossly nonfocal. PSYCHIATRIC: Cooperative, calm. LINES: looks clean. General: Alert, Cooperative, No acute distress, Other (lethargic) Heart: Regular rate, Other (2+ DP, radial b/l, femoral not palpable due to body habitus) Lungs: Clear Abdomen: No tenderness Extremities: Other (2+ pitting edema BLE, superfical skin ulceration due to pressure injury on left posterior calf, medial BLE with superficial ulceration) Skin: Other (cellulitis with superficial ulceration of the medial aspect of LLE and lateral aspect of RLE) Labs Labs: Laboratory Tests Test 06/19/21 17:06 06/19/21 20:36 06/20/21 07:26 06/20/21 12:05 Glucose (Fingerstick) 102 mg/dL (70-99) 115 mg/dL (70-99) 99 mg/dL (70-99) 126 mg/dL (70-99) Assessment and Plan Assessmemt and Plan Problems Medical Problems: (1) Left leg cellulitis Status: Acute L leg cellulitis Atrial fibrillation ZACHERY CAD CHF DM2 HLD [place] Anemia of Chronic Disease Severe protein malnutrition Mild hypoxia Sepsis POA Obstipation Plan: Wound care Cardiac monitoring Appreciate subspecialty input (GI, ID, Neuro) Encourage po intake PT OT Trend labs DVT prophylaxis Full code Hope to discharge to SNU in AM Comment Review of Relevant I have reviewed the following items ashwini (where applicable) has been applied. Justifications for Admission Other Justification Cellulitis RODRIGO TRAORE III DO Jun 20, 2021 13:39
[2021-06-20 15:19] VITALS: BP 122/57
[2021-06-20 19:00] VITALS: BP 124/64
[2021-06-20] MEDS: ATORVASTATIN CALCIUM 40 MG TABLET. PO SCH (19:56)
[2021-06-20 22:58] VITALS: BP 126/50
[2021-06-21] MEDS: METHOCARBAMOL 500 MG TABLET PO PRN (00:41)
[2021-06-21] MEDS: HYDROcodone/APAP 7.5/325MG 1 TAB TABLET PO PRN ×2 (02:17→09:47)
[2021-06-21 02:58] VITALS: BP 123/60
[2021-06-21 07:15] VITALS: BP 147/60
[2021-06-21 07:36] LABS: BASO % 0 % (0-3); EOS # 0.6 x10^3/uL (0.0-0.7); EOS % 5 % (0-3); HEMATOCRIT 32.5 % (39.0-53.0); HEMOGLOBIN 10.3 g/dL (13.0-17.5); LYMPH # 1.4 x10^3/uL (1.0-4.8); LYMPH % 10 % (24-48); MEAN CORPUSCULAR HEMOGLOBIN 27 pg (25-35); MEAN CORPUSCULAR HGB CONC 32 g/dL (31-37); MEAN CORPUSCULAR VOLUME 85 fL (79-100); MONO # 1.3 x10^3/uL (0.0-1.1); MONO % 9 % (0-9); NEUT # 10.2 x10^3/uL (1.8-7.7); NEUT % 76 % (31-73); PLATELET COUNT 728 x10^3/uL (140-400); RED BLOOD COUNT 3.84 x10^6/uL (4.30-5.70); RED CELL DISTRIBUTION WIDTH 18.4 % (11.5-14.5); WHITE BLOOD COUNT 13.5 x10^3/uL (4.0-11.0)
[2021-06-21 07:44] LABS: GFR 74.1; POTASSIUM 4.4 mmol/L (3.5-5.1)
[2021-06-21] MEDS: INSULIN LISPRO 300 UNITS/3 ML VIAL. SQ SCH ×4 (08:00→12:00)
--- NOTE | 2021-06-21 08:21 | PDOC ---
Infectious Disease Note Subjective: Subjective Follow-up for bilateral lower extremity cellulitis Patient is comfortable today, States abdominal pain is under control Denies fever, nausea, vomiting, diarrhea Vital Signs: Vital Signs Vital Signs Date Time Temp Pulse Resp B/P (MAP) Pulse Ox O2 Delivery O2 Flow Rate FiO2 06/21/21 02:58 97.5 74 20 123/60 (81) 95 Nasal Cannula 3.0 97.5 Physical Exam: PHYSICAL EXAM GENERAL: Alert, awake lying in bed in nad HEENT: Normocephalic, atraumatic. Anicteric. NECK: Supple. LUNGS: Clear bilaterally. No wheezing. HEART: S1, S2. ABDOMEN: Obese, mild diffuse tenderness present, bowel sounds present, no guarding or rigidity EXTREMITIES: Bilateral lower extremity lymphedema, venous stasis, redness with hyperpigmentation and chronic changes both lower extremities Left lower extremity redness warmth tenderness more than the right, few open wounds, no loss purulence. Yeast present MUSCULOSKELETAL: No joint swelling. No decrease in range of motion. CENTRAL NERVOUS SYSTEM: Alert, oriented x 3, grossly nonfocal. PSYCHIATRIC: Cooperative, calm. LINES: looks clean. Medications: Inpatient Meds: Medications reviewed. Labs: Lab Laboratory Tests Test 06/20/21 12:05 06/20/21 17:18 06/20/21 20:43 06/21/21 06:30 Glucose (Fingerstick) 126 mg/dL (70-99) 131 mg/dL (70-99) 124 mg/dL (70-99) White Blood Count 13.5 x10^3/uL (4.0-11.0) Red Blood Count 3.84 x10^6/uL (4.30-5.70) Hemoglobin 10.3 g/dL (13.0-17.5) Hematocrit 32.5 % (39.0-53.0) Mean Corpuscular Volume 85 fL (79-100) Mean Corpuscular Hemoglobin 27 pg (25-35) Mean Corpuscular Hemoglobin Concent 32 g/dL (31-37) Red Cell Distribution Width 18.4 % (11.5-14.5) Platelet Count 728 x10^3/uL (140-400) Neutrophils (%) (Auto) 76 % (31-73) Lymphocytes (%) (Auto) 10 % (24-48) Monocytes (%) (Auto) 9 % (0-9) Eosinophils (%) (Auto) 5 % (0-3) Basophils (%) (Auto) 0 % (0-3) Neutrophils # (Auto) 10.2 x10^3/uL (1.8-7.7) Lymphocytes # (Auto) 1.4 x10^3/uL (1.0-4.8) Monocytes # (Auto) 1.3 x10^3/uL (0.0-1.1) Eosinophils # (Auto) 0.6 x10^3/uL (0.0-0.7) Basophils # (Auto) 0.0 x10^3/uL (0.0-0.2) Sodium Level 135 mmol/L (136-145) Potassium Level 4.4 mmol/L (3.5-5.1) Chloride Level 100 mmol/L (98-107) Carbon Dioxide Level 24 mmol/L (21-32) Anion Gap 11 (6-14) Blood Urea Nitrogen 15 mg/dL (8-26) Creatinine 1.0 mg/dL (0.7-1.3) Estimated GFR (Cockcroft-Gault) 74.1 Glucose Level 103 mg/dL (70-99) Calcium Level 9.0 mg/dL (8.5-10.1) Test 06/21/21 07:35 Glucose (Fingerstick) 99 mg/dL (70-99) Objective: Assessment: 1. Left lower extremity cellulitis with underlying chronic venous insufficiency. 2. Bilateral lower extremity venous insufficiency. 3. Morbid obesity. 4. Diabetes. 5. Leukocytosis. Improving. Cultures nonrevealing 6. Congestive heart failure, chronic. Constipation Metabolic encephalopathy with abnormal CT head. Neurology consulted Abnormal CT abdomen and pelvis with peripancreatic stranding and diffuse ly mphadenopathy Plan: Plan of Care Continue Augmentin and Zyvox for 5 days DC micafungin Elevate lower extremity Optimal edema control PT and OT as tolerated Monitor labs and cultures Continue local wound care as directed Discussed with case management patient will not need long-term IV antibiotics if no other source of infection is identified during this hospitalization Management of abdominal pain and constipation and abnormal CT head per primary ALDA SAMUELS MD Jun 21, 2021 08:21
--- NOTE | 2021-06-21 08:36 | PDOC ---
PROGRESS NOTES Date of Service DATE: 06/21/21 TIME: 08:33 Assessment Problems Medical Problems: (1) Left leg cellulitis Status: Acute Metabolic encephalopathy, better. He is more alert, but is having more pain Diabetic neuropathy. CT head findings noted, I do not think he has clinical evidence of cerebral edema and there is no evidence of stroke, central nervous system infection, or ongoing seizure activity. His continued improvement confirms this impression Abnormal CT abdomen and pelvis with peripancreatic stranding and diffuse lymphadenopathy Cellulitis, chronic venous insufficiency, sepsis, hypoxia, leukocytosis, hyponatremia, acute kidney injury, anemia, morbid obesity History of atrial fibrillation, congestive heart failure, diabetes, dyslipidemia Plan Given improvement, hold on further neurological testing Treat medical diseases Pain control, we may need to accept some altered mental status to achieve this Subjective Denies pain currently Objective Vital Signs Date Time Temp Pulse Resp B/P (MAP) Pulse Ox O2 Delivery O2 Flow Rate FiO2 06/21/21 07:15 98.2 78 22 147/60 (89) 97 Nasal Cannula 3.0 98.2 Intake and Output 06/21/21 07:00 Intake Total 300 ml Balance 300 ml Intake Oral 300 ml # Voids 2 # Bowel Movements 1 PHYSICAL EXAM Alert. Oriented to time, place and person. PERRL. EOMI. CN: no focal findings. Muscle tone: normal. Muscle strength: 4/5 DTR: 0-1+ Plantar reflex: Flexor Gait: not examined in bed. Sensory exam: Stocking loss. No cerebellar signs elicited. Review of Relevant I have reviewed the following items ashwini (where applicable) has been applied. Labs Laboratory Tests Test 06/19/21 11:37 06/19/21 17:06 06/19/21 20:36 06/20/21 07:26 Glucose (Fingerstick) 129 mg/dL (70-99) 102 mg/dL (70-99) 115 mg/dL (70-99) 99 mg/dL (70-99) Test 06/20/21 12:05 06/20/21 17:18 06/20/21 20:43 06/21/21 06:30 Glucose (Fingerstick) 126 mg/dL (70-99) 131 mg/dL (70-99) 124 mg/dL (70-99) White Blood Count 13.5 x10^3/uL (4.0-11.0) Red Blood Count 3.84 x10^6/uL (4.30-5.70) Hemoglobin 10.3 g/dL (13.0-17.5) Hematocrit 32.5 % (39.0-53.0) Mean Corpuscular Volume 85 fL (79-100) Mean Corpuscular Hemoglobin 27 pg (25-35) Mean Corpuscular Hemoglobin Concent 32 g/dL (31-37) Red Cell Distribution Width 18.4 % (11.5-14.5) Platelet Count 728 x10^3/uL (140-400) Neutrophils (%) (Auto) 76 % (31-73) Lymphocytes (%) (Auto) 10 % (24-48) Monocytes (%) (Auto) 9 % (0-9) Eosinophils (%) (Auto) 5 % (0-3) Basophils (%) (Auto) 0 % (0-3) Neutrophils # (Auto) 10.2 x10^3/uL (1.8-7.7) Lymphocytes # (Auto) 1.4 x10^3/uL (1.0-4.8) Monocytes # (Auto) 1.3 x10^3/uL (0.0-1.1) Eosinophils # (Auto) 0.6 x10^3/uL (0.0-0.7) Basophils # (Auto) 0.0 x10^3/uL (0.0-0.2) Sodium Level 135 mmol/L (136-145) Potassium Level 4.4 mmol/L (3.5-5.1) Chloride Level 100 mmol/L (98-107) Carbon Dioxide Level 24 mmol/L (21-32) Anion Gap 11 (6-14) Blood Urea Nitrogen 15 mg/dL (8-26) Creatinine 1.0 mg/dL (0.7-1.3) Estimated GFR (Cockcroft-Gault) 74.1 Glucose Level 103 mg/dL (70-99) Calcium Level 9.0 mg/dL (8.5-10.1) Test 06/21/21 07:35 Glucose (Fingerstick) 99 mg/dL (70-99) Laboratory Tests Test 06/20/21 12:05 06/20/21 17:18 06/20/21 20:43 06/21/21 06:30 Glucose (Fingerstick) 126 mg/dL (70-99) 131 mg/dL (70-99) 124 mg/dL (70-99) White Blood Count 13.5 x10^3/uL (4.0-11.0) Red Blood Count 3.84 x10^6/uL (4.30-5.70) Hemoglobin 10.3 g/dL (13.0-17.5) Hematocrit 32.5 % (39.0-53.0) Mean Corpuscular Volume 85 fL (79-100) Mean Corpuscular Hemoglobin 27 pg (25-35) Mean Corpuscular Hemoglobin Concent 32 g/dL (31-37) Red Cell Distribution Width 18.4 % (11.5-14.5) Platelet Count 728 x10^3/uL (140-400) Neutrophils (%) (Auto) 76 % (31-73) Lymphocytes (%) (Auto) 10 % (24-48) Monocytes (%) (Auto) 9 % (0-9) Eosinophils (%) (Auto) 5 % (0-3) Basophils (%) (Auto) 0 % (0-3) Neutrophils # (Auto) 10.2 x10^3/uL (1.8-7.7) Lymphocytes # (Auto) 1.4 x10^3/uL (1.0-4.8) Monocytes # (Auto) 1.3 x10^3/uL (0.0-1.1) Eosinophils # (Auto) 0.6 x10^3/uL (0.0-0.7) Basophils # (Auto) 0.0 x10^3/uL (0.0-0.2) Sodium Level 135 mmol/L (136-145) Potassium Level 4.4 mmol/L (3.5-5.1) Chloride Level 100 mmol/L (98-107) Carbon Dioxide Level 24 mmol/L (21-32) Anion Gap 11 (6-14) Blood Urea Nitrogen 15 mg/dL (8-26) Creatinine 1.0 mg/dL (0.7-1.3) Estimated GFR (Cockcroft-Gault) 74.1 Glucose Level 103 mg/dL (70-99) Calcium Level 9.0 mg/dL (8.5-10.1) Test 06/21/21 07:35 Glucose (Fingerstick) 99 mg/dL (70-99) Medications Current Medications Morphine Sulfate (Morphine Sulfate) 4 mg 1X ONCE IVP Last administered on 06/13/21at 12:50; Start 06/13/21 at 12:30; Stop 06/13/21 at 12:31; Status DC Piperacillin Sod/ Tazobactam Sod (Zosyn Per Pharmacy) 1 each PRN DAILY PRN MC SEE COMMENTS; Start 06/13/21 at 12:45; Stop 06/19/21 at 10:26; Status DC Piperacillin Sod/ Tazobactam Sod 3.375 gm/Sodium Chloride 50 ml @ 100 mls/hr 1X ONCE IV Last administered on 06/13/21at 12:50; Start 06/13/21 at 12:45; Stop 06/13/21 at 13:14; Status DC Morphine Sulfate (Morphine Sulfate) 4 mg PRN Q2HR PRN IVP PAIN Last administered on 06/14/21at 10:10; Start 06/13/21 at 12:45; Stop 06/14/21 at 12:44; Status DC Hydromorphone HCl (Dilaudid) 2 mg 1X ONCE IVP Last administered on 06/13/21at 13:21; Start 06/13/21 at 13:15; Stop 06/13/21 at 13:16; Status DC Amiodarone HCl (Cordarone) 200 mg DAILY PO Last administered on 06/20/21at 09:38; Start 06/14/21 at 09:00 Apixaban (Eliquis) 5 mg BID PO Last administered on 06/20/21at 19:54; Start 06/13/21 at 21:00 Aspirin (Ecotrin) 81 mg DAILY PO Last administered on 06/20/21 09:38; Start 06/14/21 at 09:00 Atorvastatin Calcium (Lipitor) 40 mg HS PO Last administered on 06/20/21 19:56; Start 06/13/21 at 21:00 Diltiazem HCl (Cardizem 24hr Cd) 240 mg DAILY PO Last administered on 06/20/21 09:41; Start 06/14/21 at 09:00 Duloxetine HCl (Cymbalta) 30 mg DAILY PO Last administered on 06/20/21at 09:38; Start 06/14/21 at 09:00 Famotidine (Pepcid) 20 mg BID PO Last administered on 06/20/21 19:55; Start 06/13/21 at 21:00 Fenofibrate (Lofibra) 134 mg DAILY PO Last administered on 06/20/21 09:39; Start 06/14/21 at 09:00 Furosemide (Lasix) 40 mg BID94 PO ; Start 06/13/21 at 16:00; Stop 06/13/21 at 15:18; Status DC Gabapentin (Neurontin) 300 mg TID PO Last administered on 06/20/21at 19:54; Start 06/13/21 at 14:00 Acetaminophen/ Hydrocodone Bitart (Lortab 7.5/325) 1 tab PRN Q6HRS PRN PO MOD- SEVERE PAIN Last administered on 06/21/21at 02:17; Start 06/13/21 at 13:15 Linezolid (Zyvox) 600 mg BID PO Last administered on 06/20/21 19:55; Start 06/13/21 at 21:00 Methocarbamol (Robaxin) 500 mg TID PRN PRN PO MUSCLE PAIN Last administered on 06/21/21at 00:41; Start 06/13/21 at 13:45 Metoprolol Tartrate (Lopressor) 25 mg BID PO Last administered on 06/20/21 19:57; Start 06/13/21 at 21:00 Polyethylene Glycol (miraLAX PACKET) 17 gm PRN DAILY PRN PO CONSTIPATION, 1ST CHOICE; Start 06/13/21 at 13:15 Insulin Human Lispro (HumaLOG) 15 units TIDWMEALS SQ Last administered on 06/18/21at 12:40; Start 06/13/21 at 17:00 Sennosides (Senna) 17.2 mg PRN BID PRN PO CONSTIPATION, 2ND CHOICE Last administered on 06/16/21 09:37; Start 06/13/21 at 13:15 Docusate Sodium (Colace) 100 mg PRN DAILY PRN PO HARD STOOLS; Start 06/13/21 at 13:15 Ondansetron HCl (Zofran) 4 mg PRN Q6HRS PRN IVP NAUSEA/VOMITING Last administered on 06/17/21at 03:16; Start 06/13/21 at 13:15 Insulin Human Lispro (HumaLOG) 0-7 UNITS TIDWMEALS SQ ; Start 06/13/21 at 17:00 Dextrose (Dextrose 50%-Water Syringe) 12.5 gm PRN Q15MIN PRN IV SEE COMMENTS; Start 06/13/21 at 13:15 Acetaminophen (Tylenol) 650 mg PRN Q4HRS PRN PO TEMP OVER 100.4F OR MILD PAIN; Start 06/13/21 at 13:15 Morphine Sulfate (Morphine Sulfate) 1 mg PRN Q1HR PRN IV PAIN Last administered on 06/15/21at 02:58; Start 06/13/21 at 13:15; Stop 06/16/21 at 09:41; Status DC Morphine Sulfate (Morphine Sulfate) 2 mg PRN Q2HR PRN IVP SEVERE PAIN 7-10 Last administered on 06/13/21at 19:20; Start 06/13/21 at 13:15; Stop 06/14/21 at 13:14; Status DC Prochlorperazine Edisylate (Compazine) 10 mg PRN Q6HRS PRN IV NAUSEA/VOMITING, 2ND CHOICE; Start 06/13/21 at 13:15 Piperacillin Sod/ Tazobactam Sod 3.375 gm/Sodium Chloride 50 ml @ 100 mls/hr Q6HRS IV Last administered on 06/19/21at 05:44; Start 06/13/21 at 18:00; Stop 06/19/21 at 10:21; Status DC Furosemide (Lasix) 40 mg 1X ONCE IVP Last administered on 06/13/21at 15:48; Start 06/13/21 at 15:30; Stop 06/13/21 at 15:31; Status DC Potassium Chloride (Klor-Con) 40 meq TIDWMEALS PO Last administered on 06/20/21at 17:19; Start 06/14/21 at 08:00 Magnesium Sulfate 50 ml @ 25 mls/hr 1X ONCE IV Last administered on 06/14/21at 06:40; Start 06/14/21 at 07:00; Stop 06/14/21 at 08:59; Status DC Potassium Chloride (Klor-Con) 40 meq 1X ONCE PO Last administered on 06/14/21at 12:44; Start 06/14/21 at 11:15; Stop 06/14/21 at 11:16; Status DC Info (Anti-Coagulation Monitoring By Pharmacy) 1 each PRN DAILY PRN MC PER PROTOCOL Last administered on 06/17/21at 11:19; Start 06/14/21 at 13:30 Lactobacillus Rhamnosus (Culturelle) 1 cap BID PO Last administered on 06/20/21 19:54; Start 06/14/21 at 21:00 Lorazepam (Ativan) 0.5 mg PRN Q6HRS PRN PO ANXIETY / AGITATION Last administered on 06/18/21 22:20; Start 06/15/21 at 07:45 Morphine Sulfate (Morphine Sulfate) 4 mg PRN Q4HRS PRN IV MODERATE TO SEVERE PAIN Last administered on 06/16/21 09:05; Start 06/15/21 at 07:45; Stop 06/16/21 at 09:41; Status DC Multivitamins (Thera M Plus) 1 tab DAILY PO Last administered on 06/20/21 09:38; Start 06/15/21 at 12:00 Ascorbic Acid (Vitamin C) 500 mg DAILY PO Last administered on 06/20/21 09:39; Start 06/15/21 at 12:00 Micafungin Sodium 100 mg/Dextrose 100 ml @ 100 mls/hr Q24H IV Last administered on 06/20/21 09:43; Start 06/16/21 at 09:00 Bisacodyl (Dulcolax Supp) 10 mg 1X ONCE MS Last administered on 06/16/21at 09:37; Start 06/16/21 at 09:30; Stop 06/16/21 at 09:31; Status DC Sodium Monofluorophosphate (Fleet Adult) 133 ml DAILY PRN MS CONSTIPATION; Start 06/16/21 at 09:45 Sodium Monofluorophosphate (Fleet Adult) 133 ml 1X ONCE MS ; Start 06/16/21 at 09:45; Stop 06/16/21 at 09:46; Status DC Morphine Sulfate (Morphine Sulfate) 2 mg PRN Q4HRS PRN IVP PAIN Last administered on 06/19/21at 09:43; Start 06/16/21 at 18:45 Morphine Sulfate (Morphine Sulfate) 4 mg 1X ONCE IVP Last administered on 06/16/21at 18:42; Start 06/16/21 at 18:45; Stop 06/16/21 at 18:46; Status DC Fentanyl Citrate (Fentanyl 2ml Vial) 50 mcg 1X ONCE IVP Last administered on 06/16/21at 20:54; Start 06/16/21 at 20:45; Stop 06/16/21 at 20:46; Status DC Amoxicillin/ Clavulanate Potassium (Augmentin 875/ 125mg) 1 tab BID PO Last administered on 06/20/21at 19:55; Start 06/19/21 at 11:30 Fentanyl (Duragesic 25mcg/ Hr Patch) 1 patch Q3DAYS TD Last administered on 06/19/21at 12:28; Start 06/19/21 at 12:30 Active Scripts Active [Oxygen] 2 L DEJUAN CONT PRN Zyvox (Linezolid) 600 Mg Tablet 600 Mg PO BID 10 Days for two weeks. Started 04/01/21. Hydrocodone-Apap 7.5-325 (Hydrocodone Bit/Acetaminophen) 1 Tab Tablet 1 Tab PO PRN Q6HRS PRN 14 Days .. Polyethylene Glycol 3350 17 Gm Powd.pack 17 Gm PO PRN DAILY PRN 30 Days Klor-Con M20 (Potassium Chloride) 20 Meq Tab.er.prt 1 Tab PO DAILY 30 Days Metoprolol Tartrate 25 Mg Tablet 1 Tab PO BID Metformin Hcl 500 Mg Tablet 500 Mg PO BIDWMEALS 30 Days Eliquis (Apixaban) 5 Mg Tablet 5 Mg PO BID 30 Days Reported Diltiazem 24Hr Cd (Diltiazem HCl) 240 Mg Cap.er.24h 1 Cap PO DAILY Keflex (Cephalexin) 500 Mg Capsule 1 Cap PO QID Furosemide 40 Mg Tablet 1 Tab PO BID Duloxetine Hcl 30 Mg Capsule.dr 1 Cap PO DAILY 90 Days Gabapentin 300 Mg Capsule 1 Cap PO TID 90 Days Famotidine 20 Mg Tablet 20 Mg PO BID Novolog Flexpen (Insulin Aspart) 100 Unit/1 Ml Insuln.pen 15 Unit SQ TIDBFRMEAL Robaxin-750 (Methocarbamol) 750 Mg Tablet 500 Mg PO TID PRN PRN Aspir 81 (Aspirin) 81 Mg Tablet.dr 81 Mg PO DAILY Fenofibrate (Fenofibrate,Micronized) 134 Mg Capsule 134 Mg PO DAILY Atorvastatin Calcium 40 Mg Tablet 40 Mg PO HS Amiodarone Hcl 200 Mg Tablet 200 Mg PO DAILY Vitals/I & O Vital Sign - Last 24 Hours 06/20/21 06/20/21 06/20/21 06/20/21 09:38 09:38 09:39 09:41 Pulse 79 79 79 B/P (MAP) 134/68 134/68 134/68 O2 Delivery Nasal Cannula O2 Flow Rate 3.0 06/20/21 06/20/21 06/20/21 06/20/21 10:14 11:00 15:19 19:00 Temp 97.4 98.7 97.4 97.4 98.7 97.4 Pulse 87 74 86 Resp 20 22 20 B/P (MAP) 131/71 (91) 122/57 (78) 124/64 (84) Pulse Ox 97 96 94 94 O2 Delivery Nasal Cannula Nasal Cannula Nasal Cannula Nasal Cannula O2 Flow Rate 3.0 3.0 3.0 3.0 06/20/21 06/20/21 06/20/21 06/20/21 19:57 19:57 20:27 20:30 Pulse 86 B/P (MAP) 124/64 Pulse Ox 95 O2 Delivery Room Air Nasal Cannula Nasal Cannula O2 Flow Rate 3.0 3.0 06/20/21 06/21/21 06/21/21 06/21/21 22:58 02:17 02:47 02:58 Temp 97.5 97.5 97.5 97.5 Pulse 64 74 Resp 20 20 B/P (MAP) 126/50 (75) 123/60 (81) Pulse Ox 95 95 95 95 O2 Delivery Nasal Cannula Nasal Cannula Nasal Cannula Nasal Cannula O2 Flow Rate 3.0 3.0 3.0 3.0 06/21/21 07:15 Temp 98.2 98.2 Pulse 78 Resp 22 B/P (MAP) 147/60 (89) Pulse Ox 97 O2 Delivery Nasal Cannula O2 Flow Rate 3.0 Intake and Output 06/20/21 06/20/21 06/21/21 15:00 23:00 07:00 Intake Total 300 ml Balance 300 ml Justicifation of Admission Dx: Justifications for Admission: Justification of Admission Dx: Yes CHF: Hemodynamic Instability Comminuty Aquired Pneumonia: Hypoxemia YOHANNES BELLAMY MD Jun 21, 2021 08:36
[2021-06-21] MEDS: FAMOTIDINE 20 MG TABLET. PO SCH (08:38)
[2021-06-21] MEDS: MULTIVITAMIN with MINERAL TABLET. PO SCH (08:38)
[2021-06-21] MEDS: DULoxetine HCL 30 MG CAPSULE.DR PO SCH (08:38)
[2021-06-21] MEDS: GABAPENTIN 300 MG CAPSULE. PO SCH ×2 (08:38→14:15)
[2021-06-21] MEDS: APIXABAN 5 MG TABLET. PO SCH (08:38)
[2021-06-21] MEDS: ASPIRIN ENTERIC COATED 81 MG TABLET.DR. PO SCH (08:38)
[2021-06-21] MEDS: LINEZOLID 600 MG TABLET PO SCH (08:38)
[2021-06-21] MEDS: AMOXICILLIN/K CLAV 875/125MG TABLET. PO SCH (08:38)
[2021-06-21] MEDS: ASCORBIC ACID 500 MG TABLET PO SCH (08:38)
[2021-06-21] MEDS: LACTOBACILLUS RHAMNOSUS GG 1 CAPSULE. PO SCH (08:38)
[2021-06-21] MEDS: FENOFIBRATE,MICRONIZED 134 MG CAPSULE PO SCH (08:38)
[2021-06-21] MEDS: POTASSIUM CHLORIDE 20 MEQ TABLET.ER. PO SCH ×2 (08:39→12:29)
[2021-06-21] MEDS: AMIODARONE HCL 200 MG TABLET. PO SCH (08:42)
[2021-06-21] MEDS: MICAFUNGIN 100 MG in IV DEXTROSE 5% 100ML 100 ML IV SCH (08:43)
--- NOTE | 2021-06-21 09:20 | NUR ---
Ate 100% breakfast with setting up tray, pt able to feed self. Cont. monitor.
--- NOTE | 2021-06-21 10:30 | NUR ---
HILDA following. Discussed with [facility]ILDA notified [facility] of potential discharge today. Awaiting discharge orders. HILDA will continue to follow. Addendum: 06/21/21 at 1201 by RAFI STEVENS Discharge orders faxed to [facility]. Awaiting transportation time.
[2021-06-21] MEDS ORDERED: AMOX1TAB11 PO (10:58)
[2021-06-21] MEDS ORDERED: LINE600T12 PO ×2 (10:58→12:23)
[2021-06-21] MEDS: ANTI-COAG MONITOR BY PHARMACY. MC PRN (10:58)
[2021-06-21] MEDS ORDERED: FENT1PAT15 TD (10:58)
[2021-06-21] MEDS ORDERED: HYDR-2765 PO ×2 (10:58→12:23)
--- NOTE | 2021-06-21 11:01 | SNU/HH DC ---
DISCHARGE ORDERS DISCHARGE INFORMATION: DISCHARGE DATE: Jun 21, 2021 FINAL DIAGNOSIS Problems Medical Problems: (1) Left leg cellulitis Status: Acute CONDITION ON DISCHARGE: Stable CODE STATUS: Code Status: Full DETENTION: SNF STAY <30 DAYS: Yes POST DISCHARGE ORDERS: ACTIVITY ORDERS: Activity as tolerated WEIGHT BEARING STATUS: As tolerated DIET AFTER DISCHARGE: Cardiac WOUND/INCISION CARE: Change dressing OTHER WOUND INSTRUCTIONS: Change bilateral lower extremity dressings twice daily CHECKS AFTER DISCHARGE: CHECKS AFTER DISCHARGE: Check blood press - daily, Check blood sugar, ac/hs FOLLOW-UP: PHYSICIAN FOLLOW-UP: PCP within 2 weeks of discharge ADDITIONAL FOLLOW-UP: Infectious disease as needed LAB ORDERS FOR FOLLOW-UP: CBC, CMP TREATMENT/EQUIPMENT ORDERS: ADAPTIVE EQUIPMENT NEEDED: None RESPIRATORY EQUIPMENT NEEDED: Oxygen Physical Therapy For: Evalulation/Treatment Occupational Therapy For: Evaluation/Treatment DISCHARGE MEDICATIONS: Home Meds Active Scripts Sennosides/Docusate Sodium (Senna-Docusate Sodium Tablet) 1 Each Tablet, 2 TAB PO BID PRN for CONSTIPATION for 5 Days, #20 TAB 0 Refills Prov:CEFERINO ALCANTAR MD 06/21/21 Fentanyl (FENTANYL 25mcg/hr) 1 Each Patch.td72, 1 PATCH TD Q3DAYS for chronic pain for 30 Days, #30 PATCH Prov:CEFERINO ALCANTAR MD 06/21/21 Linezolid (ZYVOX) 600 Mg Tablet, 600 MG PO BID for cellulitits for 5 Days, #10 TAB Prov:CEFERINO ALCANTAR MD 06/21/21 Amoxicillin/Potassium Clav (AMOX TR-K CLV 875-125 MG TAB) 1 Each Tablet, 1 TAB PO BID for cellulitis for 5 Days, #10 TAB Prov:CEFERINO ALCANTAR MD 06/21/21 Hydrocodone Bit/Acetaminophen (HYDROCODONE-APAP 7.5-325 ) 1 Tab Tablet, 1 TAB PO PRN Q8HRS PRN for PAIN for 7 Days, #21 TAB 0 Refills .. Prov:CEFERINO ALCANTAR MD 06/21/21 [Oxygen] No Conflict Check, 2 L DEJUAN CONT PRN for shortness of air Prov:RODRIGO TRAORE III DO 04/01/21 Polyethylene Glycol 3350 (POLYETHYLENE GLYCOL 3350) 17 Gm Powd.pack, 17 GM PO PRN DAILY PRN for CONSTIPATION for 30 Days, #30 PKT 11 Refills Prov:JOSSELIN ARCOS MD 09/22/20 Potassium Chloride (KLOR-CON M20) 20 Meq Tab.er.prt, 1 TAB PO DAILY for on lasix for 30 Days, #30 TAB 0 Refills Prov:KULWINDER MANCIA MD 01/07/20 Metoprolol Tartrate (METOPROLOL TARTRATE) 25 Mg Tablet, 1 TAB PO BID for htn, #180 TAB 1 Refill Prov:EMA ROGERS MD 07/04/19 Metformin Hcl (METFORMIN HCL) 500 Mg Tablet, 500 MG PO BIDWMEALS for ANTI- DIABETIC for 30 Days, #60 TAB 0 Refills Prov:MARY DE LA ROSA MD 12/31/18 Apixaban (ELIQUIS) 5 Mg Tablet, 5 MG PO BID for afib for 30 Days, #60 TAB Prov:MARY DE LA ROSA MD 12/31/18 Reported Medications Diltiazem HCl (Diltiazem 24Hr Cd) 240 Mg Cap.er.24h, 1 CAP PO DAILY for A fib 03/29/21 Cephalexin (KEFLEX) 500 Mg Capsule, 1 CAP PO QID for 03/28/21 Duloxetine Hcl (DULOXETINE HCL) 30 Mg Capsule.dr, 1 CAP PO DAILY for Neuropathy for 90 Days, #90 2 Refills 09/21/20 Gabapentin (Gabapentin) 300 Mg Capsule, 1 CAP PO TID for Neuropathy for 90 Days, #270 3 Refills 09/21/20 Famotidine (FAMOTIDINE) 20 Mg Tablet, 20 MG PO BID for gerd, TAB 09/05/20 Insulin Aspart (NOVOLOG FLEXPEN) 100 Unit/1 Ml Insuln.pen, 15 UNIT SQ TIDBFRMEAL for DM, SYR 09/05/20 Methocarbamol (ROBAXIN-750) 750 Mg Tablet, 500 MG PO TID PRN PRN for PAIN, TAB 09/05/20 Aspirin (ASPIR 81) 81 Mg Tablet.dr, 81 MG PO DAILY, TAB 04/13/15 Fenofibrate,Micronized (FENOFIBRATE) 134 Mg Capsule, 134 MG PO DAILY, CAP 04/13/15 Atorvastatin Calcium (ATORVASTATIN CALCIUM) 40 Mg Tablet, 40 MG PO HS, #30 TAB 0 Refills 02/17/14 Amiodarone Hcl (AMIODARONE HCL) 200 Mg Tablet, 200 MG PO DAILY, #30 02/09/14 Discontinued Reported Medications Furosemide (FUROSEMIDE) 40 Mg Tablet, 1 TAB PO BID for 03/28/21 Discontinued Scripts Linezolid (ZYVOX) 600 Mg Tablet, 600 MG PO BID for infection for 10 Days, #20 TAB for two weeks. Started 04/01/21. Prov:RODRIGO TRAORE III DO 04/01/21 CEFERINO ALCANTAR MD Jun 21, 2021 11:01
[2021-06-21] MEDS ORDERED: SENN1TAB99 PO ×2 (11:02→12:23)
--- NOTE | 2021-06-21 11:05 | PDOC ---
Date of Service: DATE: 06/21/21 TIME: 11:02 Subjective: Subjective: Not feeling well - relates this to being in bed for "weeks." Says eating without issue. Objective: Objective: No GI concerns per nurse. Vital Signs: Vital Signs Date Time Temp Pulse Resp B/P (MAP) Pulse Ox O2 Delivery O2 Flow Rate FiO2 06/21/21 09:47 97 Nasal Cannula 3.0 06/21/21 08:42 79 134/61 06/21/21 07:15 98.2 22 98.2 Labs: Laboratory Tests Test 06/20/21 12:05 06/20/21 17:18 06/20/21 20:43 06/21/21 06:30 Glucose (Fingerstick) 126 mg/dL 131 mg/dL 124 mg/dL White Blood Count 13.5 x10^3/uL Red Blood Count 3.84 x10^6/uL Hemoglobin 10.3 g/dL Hematocrit 32.5 % Mean Corpuscular Volume 85 fL Mean Corpuscular Hemoglobin 27 pg Mean Corpuscular Hemoglobin Concent 32 g/dL Red Cell Distribution Width 18.4 % Platelet Count 728 x10^3/uL Neutrophils (%) (Auto) 76 % Lymphocytes (%) (Auto) 10 % Monocytes (%) (Auto) 9 % Eosinophils (%) (Auto) 5 % Basophils (%) (Auto) 0 % Neutrophils # (Auto) 10.2 x10^3/uL Lymphocytes # (Auto) 1.4 x10^3/uL Monocytes # (Auto) 1.3 x10^3/uL Eosinophils # (Auto) 0.6 x10^3/uL Basophils # (Auto) 0.0 x10^3/uL Sodium Level 135 mmol/L Potassium Level 4.4 mmol/L Chloride Level 100 mmol/L Carbon Dioxide Level 24 mmol/L Anion Gap 11 Blood Urea Nitrogen 15 mg/dL Creatinine 1.0 mg/dL Estimated GFR (Cockcroft-Gault) 74.1 Glucose Level 103 mg/dL Calcium Level 9.0 mg/dL Test 06/21/21 07:35 Glucose (Fingerstick) 99 mg/dL PE: GEN: restless LUNGS: clear, NC 3L HEART: RRR ABD: large, soft, non-tender NEURO/PSYCH: awake and alert, more conversant than last week A/P: LE cellulitis SONALI - stable and without obvious GI bleeding, on ASA, Eliquis, also Pepcid ?chronic liver disease - normal ammonia COVID negative, BMI 52 -- Continue support per GI. Justicifation of Admission Dx: Justifications for Admission: Justification of Admission Dx: Yes CHF: Hemodynamic Instability Comminuty Aquired Pneumonia: Hypoxemia ELLEN NAVARRO Jun 21, 2021 11:05
[2021-06-21 11:08] VITALS: BP 141/71
[2021-06-21] MEDS ORDERED: FENT1PAT15 TP (12:23)
[2021-06-21] MEDS ORDERED: AMOX1TAB61 PO (12:23)
[2021-06-21] MEDS: METOPROLOL TART IMMED RELEASE 25 MG TABLET. PO SCH (12:30)
--- NOTE | 2021-06-21 14:30 | NUR ---
Report called to Juanita SAINZ at [facility].
--- NOTE | 2021-06-21 14:42 | NUR ---
Pt discharged by ambulance to [facility] [place].
[2021-06-21 14:59] VITALS: BP 100/61
--- NOTE | 2021-06-21 17:44 | PDOC3 ---
[facility]-Discharge Summary Date of Admission: Date of Admission: Jun 13, 2021 Date of Discharge: Date of Discharge: Jun 21, 2021 Discharge Diagnosis: Discharge Diagnosis: L leg cellulitis Atrial fibrillation ZACHERY CAD CHF DM2 HLD [place] Anemia of Chronic Disease Severe protein malnutrition Mild hypoxia Sepsis POA Obstipation Consults: Consults: Neuro plan: Plan Given improvement, hold on further neurological testing Treat medical diseases Pain control, we may need to accept some altered mental status to achieve this ID Plan of Care Continue Augmentin and Zyvox for 5 days DC micafungin Elevate lower extremity Optimal edema control PT and OT as tolerated Monitor labs and cultures Continue local wound care as directed Discussed with case management patient will not need long-term IV antibiotics if no other source of infection is identified during this hospitalization Management of abdominal pain and constipation and abnormal CT head per primary Hospital Course: Hospital Course: 71 year old male who was brought here by EMS from home due to left leg wound. Patient had this wound for years. Patient says [facility], was discharged from the [facility] 1 month ago. He continues to have cellulitis of his left lower extremity, but the last 3-day is to have more blister and more drainage from the wound on left leg. Patient said he was in a lot of pain. Patient denies any cough or fever. Patient has history of diabetic, morbidly obese. By day of discharge, pt had 2 BM and ABD pain improved. Mental status improved by states does not feel well lying in bed. Encouraged rehab and increasing physical activity. Encouraged weight loss. 06/20/2021: Pt seen and examined. Discussed with RN. Chart reviewed. Discussed with Nirali cuadra. Wound dressing clean, dry, intact. Pt feeling better since starting Fentanyl patch. 06/19/2021: Pt seen and examined. Chart reviewed. Discussed with RN. Wound dressing clean, dry, intact. Pt more alert today and complains of pain in his legs with movement. 06/18/2021: Pt seen and examined. Discussed with RN. Chart reviewed. Discussed with Nirali cuadra. Wound dressing clean, dry, intact. 06-16 no bm x 4 days, will give fleets, d/c iv morphine, may be attributed to obstipation Continue Zosyn and Zyvox start micafungin Elevate left lower extremity. 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 , hepatic steatosis Ankle mortise is symmetric and talar dome is intact. diffuse subcutaneous edema. No soft tissue gas. x ray ankle MORE CONFUSED, D/W DR MCMULLEN will order ct head, neurology consult, continue iv antibiotics per dr Mcmullen, continued stay needed prn give fleets, d/c iv morphine, may be attributed to obstipation Continue Zosyn and Zyvox 9-30 ct head chronic small vessel ischemic disease as well as edema from acute etiology within the differential continue micafungin Elevate left lower extremity. 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 LEFT ANKLE consult gi, nh4 Disposition: Disposition/Orders: D/C to Another Facility Activity: Activity: Resume previous activity Diet: Diet: Cardiac Medications: Home Meds Active Scripts Sennosides/Docusate Sodium (Senna-Docusate Sodium Tablet) 1 Each Tablet, 2 TAB PO BID PRN for CONSTIPATION for 14 Days, #56 TAB 0 Refills Prov:CEFERINO ALCANTAR MD 06/21/21 Linezolid (ZYVOX) 600 Mg Tablet, 600 MG PO BID for cellulitis for 5 Days, #10 TAB Prov:CEFERINO ALCANTAR MD 06/21/21 Hydrocodone Bit/Acetaminophen (HYDROCODONE-APAP 7.5-325 ) 1 Tab Tablet, 1 TAB PO PRN Q8HRS PRN for PAIN for 7 Days, #21 TAB 0 Refills Prov:CEFERINO ALCANTAR MD 06/21/21 Fentanyl (FENTANYL 25mcg/hr) 1 Each Patch.td72, 1 PATCH TP Q3DAYS for pain for 14 Days, #14 PATCH Prov:CEFERINO ALCANTAR MD 06/21/21 Amoxicillin/Potassium Clav (AUGMENTIN 875-125 TABLET) 1 Each Tablet, 1 TAB PO BID for cellulitis for 5 Days, #10 TAB 0 Refills Prov:CEFERINO ALCANTAR MD 06/21/21 [Oxygen] No Conflict Check, 2 L DEJUAN CONT PRN for shortness of air Prov:RODRIGO TRAORE K III DO 04/01/21 Polyethylene Glycol 3350 (POLYETHYLENE GLYCOL 3350) 17 Gm Powd.pack, 17 GM PO PRN DAILY PRN for CONSTIPATION for 30 Days, #30 PKT 11 Refills Prov:JOSSELIN ARCOS MD 09/22/20 Potassium Chloride (KLOR-CON M20) 20 Meq Tab.er.prt, 1 TAB PO DAILY for on lasix for 30 Days, #30 TAB 0 Refills Prov:KULWINDER MANCIA MD 01/07/20 Metoprolol Tartrate (METOPROLOL TARTRATE) 25 Mg Tablet, 1 TAB PO BID for htn, #180 TAB 1 Refill Prov:EMA ROGERS MD 07/04/19 Metformin Hcl (METFORMIN HCL) 500 Mg Tablet, 500 MG PO BIDWMEALS for ANTI- DIABETIC for 30 Days, #60 TAB 0 Refills Prov:MARY DE LA ROSA MD 12/31/18 Apixaban (ELIQUIS) 5 Mg Tablet, 5 MG PO BID for afib for 30 Days, #60 TAB Prov:MARY DE LA ROSA MD 12/31/18 Reported Medications Diltiazem HCl (Diltiazem 24Hr Cd) 240 Mg Cap.er.24h, 1 CAP PO DAILY for A fib 03/29/21 Cephalexin (KEFLEX) 500 Mg Capsule, 1 CAP PO QID for 03/28/21 Duloxetine Hcl (DULOXETINE HCL) 30 Mg Capsule.dr, 1 CAP PO DAILY for Neuropathy for 90 Days, #90 2 Refills 09/21/20 Gabapentin (Gabapentin) 300 Mg Capsule, 1 CAP PO TID for Neuropathy for 90 Days, #270 3 Refills 09/21/20 Famotidine (FAMOTIDINE) 20 Mg Tablet, 20 MG PO BID for gerd, TAB 09/05/20 Insulin Aspart (NOVOLOG FLEXPEN) 100 Unit/1 Ml Insuln.pen, 15 UNIT SQ TIDBFRMEAL for DM, SYR 09/05/20 Methocarbamol (ROBAXIN-750) 750 Mg Tablet, 500 MG PO TID PRN PRN for PAIN, TAB 09/05/20 Aspirin (ASPIR 81) 81 Mg Tablet.dr, 81 MG PO DAILY, TAB 04/13/15 Fenofibrate,Micronized (FENOFIBRATE) 134 Mg Capsule, 134 MG PO DAILY, CAP 04/13/15 Atorvastatin Calcium (ATORVASTATIN CALCIUM) 40 Mg Tablet, 40 MG PO HS, #30 TAB 0 Refills 02/17/14 Amiodarone Hcl (AMIODARONE HCL) 200 Mg Tablet, 200 MG PO DAILY, #30 02/09/14 Discontinued Reported Medications Furosemide (FUROSEMIDE) 40 Mg Tablet, 1 TAB PO BID for 03/28/21 Discontinued Scripts Linezolid (ZYVOX) 600 Mg Tablet, 600 MG PO BID for infection for 10 Days, #20 TAB for two weeks. Started 04/01/21. Prov:RODRIGO TRAORE III DO 04/01/21 Hydrocodone Bit/Acetaminophen (HYDROCODONE-APAP 7.5-325 ) 1 Tab Tablet, 1 TAB PO PRN Q6HRS PRN for PAIN for 14 Days, #30 TAB 0 Refills .. Prov:RODRIGO TRAORE III DO 04/01/21 Scheduled Amiodarone Hcl (Amiodarone Hcl), 200 MG PO DAILY, (Reported) Amoxicillin/Potassium Clav (Augmentin 875-125 Tablet), 1 TAB PO BID Apixaban (Eliquis), 5 MG PO BID Aspirin (Aspir 81), 81 MG PO DAILY, (Reported) Atorvastatin Calcium (Atorvastatin Calcium), 40 MG PO HS, (Reported) Cephalexin (Keflex), 1 CAP PO QID, (Reported) Diltiazem HCl (Diltiazem 24Hr Cd), 1 CAP PO DAILY, (Reported) Duloxetine Hcl (Duloxetine Hcl), 1 CAP PO DAILY, (Reported) Famotidine (Famotidine), 20 MG PO BID, (Reported) Fenofibrate,Micronized (Fenofibrate), 134 MG PO DAILY, (Reported) Fentanyl (FENTANYL 25mcg/hr), 1 PATCH TP Q3DAYS Gabapentin (Gabapentin), 1 CAP PO TID, (Reported) Insulin Aspart (Novolog Flexpen), 15 UNIT SQ TIDBFRMEAL, (Reported) Linezolid (Zyvox), 600 MG PO BID Metformin Hcl (Metformin Hcl), 500 MG PO BIDWMEALS Metoprolol Tartrate (Metoprolol Tartrate), 1 TAB PO BID Potassium Chloride (Klor-Con M20), 1 TAB PO DAILY Scheduled PRN Hydrocodone Bit/Acetaminophen (Hydrocodone-Apap 7.5-325 ), 1 TAB PO PRN Q8HRS PRN for PAIN Methocarbamol (Robaxin-750), 500 MG PO TID PRN PRN for PAIN, (Reported) Polyethylene Glycol 3350 (Polyethylene Glycol 3350), 17 GM PO PRN DAILY PRN for CONSTIPATION Sennosides/Docusate Sodium (Senna-Docusate Sodium Tablet), 2 TAB PO BID PRN for CONSTIPATION [Oxygen], 2 L DEJUAN CONT PRN for shortness of air Discontinued Medications Furosemide (Furosemide), 1 TAB PO BID, (Reported) Hydrocodone Bit/Acetaminophen (Hydrocodone-Apap 7.5-325 ), 1 TAB PO PRN Q6HRS PRN for PAIN Discontinued Reason: Prescription changed Linezolid (Zyvox), 600 MG PO BID Total Time: Total Time: Total time spent was 36 minutes in preparing scripts, discharge planning with SW and RN, and preparing this discharge summary. Patient seen and examined on day of discharge. Justicifation of Admission Dx: Justifications for Admission: Justification of Admission Dx: Yes Comminuty Aquired Pneumonia: Hypoxemia Cellulitis: Cellulitis CEFERINO ALCANTAR MD Jun 21, 2021 17:44
== END 2021-06-21 14:45 | DRG 871 ==
LOC: ER 12:00 → 4 NORTH 12:30
PROVIDERS: ADMIT Internal Medicine; ATTEND Internal Medicine
DX: A41.9 Sepsis, unspecified organism (principal); N17.0 Acute kidney failure with tubular necrosis; E43 Unspecified severe protein-calorie malnutrition; G93.41 Metabolic encephalopathy; I50.33 Acute on chronic diastolic (congestive) heart failure; J96.01 Acute respiratory failure with hypoxia; L03.116 Cellulitis of left lower limb; E87.1 Hypo-osmolality and hyponatremia; I13.0 Hypertensive heart and chronic kidney disease with heart failure and stage 1 through stage 4 chronic kidney disease, or unspecified chronic kidney disease; L03.115 Cellulitis of right lower limb; L03.311 Cellulitis of abdominal wall; L97.909 Non-pressure chronic ulcer of unspecified part of unspecified lower leg with unspecified severity; Z68.43 Body mass index [BMI] 50.0-59.9, adult; D63.8 Anemia in other chronic diseases classified elsewhere; E11.22 Type 2 diabetes mellitus with diabetic chronic kidney disease; E11.40 Type 2 diabetes mellitus with diabetic neuropathy, unspecified; E11.51 Type 2 diabetes mellitus with diabetic peripheral angiopathy without gangrene; E11.69 Type 2 diabetes mellitus with other specified complication; E66.01 Morbid (severe) obesity due to excess calories; E78.00 Pure hypercholesterolemia, unspecified; E78.5 Hyperlipidemia, unspecified; E86.9 Volume depletion, unspecified; E87.8 Other disorders of electrolyte and fluid balance, not elsewhere classified; I25.10 Atherosclerotic heart disease of native coronary artery without angina pectoris; I48.91 Unspecified atrial fibrillation; I87.2 Venous insufficiency (chronic) (peripheral); I87.8 Other specified disorders of veins; I89.0 Lymphedema, not elsewhere classified; K59.00 Constipation, unspecified; K76.0 Fatty (change of) liver, not elsewhere classified; M77.30 Calcaneal spur, unspecified foot; N18.9 Chronic kidney disease, unspecified; N40.0 Benign prostatic hyperplasia without lower urinary tract symptoms; Z20.822 Contact with and (suspected) exposure to COVID-19; Z87.891 Personal history of nicotine dependence; Z90.49 Acquired absence of other specified parts of digestive tract; Z95.5 Presence of coronary angioplasty implant and graft
CPT/HCPCS: 36415; 70450; 71045; 73610; 74021; 74176; 80048; 80053; 82140; 82962; 83540; 83550; 83735; 84100; 84132; 84145; 85007; 85025; 86140; 87426; 93925; J1170; J1815; J1940; J2248; J2270; J2405; J2543; J3010; J3475; J7060; U0003; U0005; 97530-GP; 99285-25; G0378